=== PATIENT | male | born 1945 | race Caucasian/White ===

== ENCOUNTER 2016-06-23 10:18 | Day surgery (SDC) | payer OTHER ==
[2016-06-06 11:19] VITALS: BMI 33.0
--- NOTE | 2016-06-06 11:43 | PAT Medication Instructions ---
Service Date Jun 06, 2016. Current Home Medication List Cszrg-U-Rtkiijcxkwjqe (Beano), 1 TAB PO prn Alum & Mag Hydrox-Simethicone (Mylanta), 30 ML PO PRN UD Aspirin Enteric Coated (Ecotrin Or Generic *), 325 MG PO QAM Dutasteride (Avodart), 0.5 MG PO QAM Multivitamin (Multivitamin), 1 TAB PO QAM Nitroglycerin (Nitrostat), 0.4 MG UT PRN Pravastatin (Pravachol ), 40 MG PO QAM Ranitidine HCl (Acid Automotive Light Mechanic), 1 TAB PO BID Tamsulosin Hcl (Flomax), 0.4 MG PO BID Medication Instructions For Your Scheduled Surgery Nitroglycerin (Nitrostat), 0.4 MG UT PRN (if needed) - Hold the following medications 7 days prior to surgery per surgeon and PCP instructions: Aspirin Enteric Coated (Ecotrin Or Generic *), 325 MG PO QAM - Hold the following medications the morning of surgery: Multivitamin (Multivitamin), 1 TAB PO QAM Xxlyo-L-Fdrwkdtragmvz (Beano), 1 TAB PO prn Alum & Mag Hydrox-Simethicone (Mylanta), 30 ML PO PRN UD - Take the following medications the morning of surgery with a sip of water: Ranitidine HCl (Acid Automotive Light Mechanic), 1 TAB PO BID Tamsulosin Hcl (Flomax), 0.4 MG PO BID Pravastatin (Pravachol ), 40 MG PO QAM Dutasteride (Avodart), 0.5 MG PO QAM - Take the following medications as scheduled the night before surgery: Ranitidine HCl (Acid Automotive Light Mechanic), 1 TAB PO BID Tamsulosin Hcl (Flomax), 0.4 MG PO BID Ictjf-N-Koqvdseqpjsqr (Beano), 1 TAB PO prn Alum & Mag Hydrox-Simethicone (Mylanta), 30 ML PO PRN UD If you have any questions please call us at [phone] or [phone] ( [place]lin) or [phone]
[2016-06-06 12:10] LABS: BASO % 0.3 %; BASO ABS # 0.03 K/uL (0-0.2); COMPLETE YES; EOS % 1.6 %; HEMATOCRIT 44.1 % (42-52); IG% 0.1 %; LYMPH % 32.5 %; LYMPH ABS # 2.81 K/uL (1.2-3.4); MEAN CELL VOLUME 90.2 fL (80-100); MEAN CORPUSCULAR HEMOGLOBIN 31.1 pg (25-34); MEAN CORPUSCULAR HGB CONC 34.5 g/dl (32-36); MONO % 6.6 %; NEUT % 58.9 %; PLATELET COUNT 311 K/uL (130-400); RED BLOOD COUNT 4.89 M/uL (4.7-6.1); WHITE BLOOD COUNT 8.65 K/uL (4.8-10.8)
[2016-06-06 12:25] LABS: URINE APPEARANCE CLOUDY (CLEAR); URINE BILIRUBIN NEG (NEG); URINE COLOR YELLOW; URINE EPITHELIAL CELL AUTO 0-5 /lpf (0-5); URINE NITRITE NEG (NEG); URINE PH 6.5 (4.5-7.5); URINE SPECIFIC GRAVITY 1.005 (1.000-1.030); UROBILINOGEN NEG (NEG)
[2016-06-06 12:26] LABS: MANUAL MICROSCOPIC REQUIRED? NO; REVIEW REQ? NO
[2016-06-06 12:34] LABS: BUN/CREATININE RATIO 12.9 (10-20); CALCIUM 8.9 mg/dl (8.5-10.1); CREATININE 1.1 mg/dl (0.60-1.40)
[~2016-06-23] VITALS: Ht 165.1 cm; Wt 90.7 kg
--- NOTE | 2016-06-23 07:26 | Discharge Instructions ---
Discharge Instructions Date of Service Jun 23, 2016. Admission Reason for Admission: Retention, Benign Prostatic Hyperplasia Discharge Discharge Diagnosis / Problem: Retention and BPH s/p TURP Discharge Goals Goal(s): Improve function, Improve disease control Activity Recommendations Activity Limitations: as noted below Lifting Limitations: gradually increase as tolerated (no heavy lifting x 1 week ) Exercise/Sports Limitations: gradually increase as tolerated (after catheter removed) May Resume Sexual Activity: after follow-up appointment Shower/Bathe: tomorrow (no tub bath with catheter in place) Driving or Machine Use: no limitations (no driving on pain medication) . Instructions / Follow-Up Instructions / Follow-Up Quiros to gravity as instructed Follow-up in office as scheduled for removal of catheter and postop visit Discharge Diet Recommended Diet: Regular Diet (good fluid intake) Procedures Procedures Performed: TURP Pending Studies Studies pending at discharge: yes List of pending studies: Pathology results Medical Emergencies . Who to Call and When: Medical Emergencies: If at any time you feel your situation is an emergency, please call 911 immediately. . Non-Emergent Contact Non-Emergency issues call your: Urologist Call Non-Emergent contact if: you have a fever, temperature is above 101, your pain is not controlled, your pain is worsening, your pain is unusual for you, your pain is concerning you, you have any medication questions . . "Provider Documentation" section prepared by Da Campos. VTE Core Measure Inpt VTE Proph given/why not?: SCD's [place] Drug Monitoring Program Search Results: patient reviewed within database, no issues identified
[~2016-06-23 10:18] MED LIST: ALPHTAB4 PO; ALUM-30 PO; ASPEC325 PO; CIPROFLOXACIN / D5W 400 MG IV SCH; DUTA0.5C PO; GENTAMICIN INJ 120 MG in DEXTROSE 5% 100ML 100 ML IV SCH; LACTATED RINGER'S 1000ML 1,000 ML IV SCH; MULT-506 PO; NITR0.4S UT; PRAV20TA PO; RANI-316 PO; TAMS0.4C38 PO; VANCOMYCIN 1GM/270ML NSS IV SCH
[2016-06-23 10:46] VITALS: BP 154/83; PULSE 77; TEMP 36.5; O2SAT 98; Ht 165.1 cm; Wt 90.7 kg
--- NOTE | 2016-06-23 11:23 | History & Physical Bridge Note ---
H&P Re-Evaluation Bridge Note: I have examined the patient, reviewed the History & Physical and in the interval since the performance of the History & Physical I have noted the following changes of clinical significance: No changes noted
[2016-06-23] MEDS ORDERED: FENTANYL CITRATE INJ 50 MCG/1 ML 2 ML VIAL ONE (11:41)
[2016-06-23] MEDS ORDERED: DEXAMETHASONE SOD INJ 4 MG/ML VIAL ONE (11:41)
[2016-06-23] MEDS ORDERED: LIDOCAINE HCL 2% 2 ML VIAL (20MG/ML) ONE (11:41)
[2016-06-23] MEDS ORDERED: PROPOFOL IV EMULSION 10 MG/ML 20 ML VIAL IV ONE (11:41)
[2016-06-23] MEDS ORDERED: MIDAZOLAM HCL 1 MG/ML 2ML VIAL ONE (11:41)
[2016-06-23] MEDS ORDERED: ONDANSETRON INJ 2 MG/ML 2 ML VIAL ONE (11:41)
[2016-06-23] MEDS ORDERED: ATROPINE SULFATE 0.1 MG/ML 5ML SYR IV PRN (13:15)
[2016-06-23] MEDS ORDERED: ONDANSETRON INJ 2 MG/ML 2 ML VIAL IV PRN (13:15)
[2016-06-23] MEDS ORDERED: FENTANYL CITRATE INJ 50 MCG/1 ML 2 ML VIAL IV PRN (13:15)
[2016-06-23] MEDS ORDERED: LABETALOL HCL IV 5 MG/ML 20ML IV PRN (13:15)
[2016-06-23] MEDS ORDERED: EpHEDrine SULFATE 50MG/5ML SYR ONE (13:41)
[2016-06-23] MEDS ORDERED: BELLADONNA/OPIUM SUPP 60 MG SUPP PR ONE (13:50)
[2016-06-23] MEDS ORDERED: OXYC-57 PO (14:15)
[2016-06-23] MEDS ORDERED: PHEN-775 PO (14:15)
[2016-06-23] MEDS ORDERED: NITR1CAP16 PO (14:15)
--- NOTE | 2016-06-23 14:19 | [facility] Post Operative Brief Note ---
Immediate Operative Summary Operative Date Jun 23, 2016. Pre-Operative Diagnosis Benign prostatic hypertrophy with retention Post-Operative Diagnosis Same Procedure(s) Performed Bipolar Transuretheral Resection and Vaporization of Prostate Surgeon Dr. Stephen Campos Structural Analysis Engineer Surgeon(s) none Estimated Blood Loss 10 cc Findings Open fossa after completion Specimens A: prostate chips Drains 24 fr 10 cc H2O Anesthesia GALMA Complication(s) None Disposition Recovery Room / PACU
[2016-06-23] MEDS ORDERED: OXYCODONE/ACETAMINOPHEN 5-325 TAB PO PRN (14:30)
[2016-06-23] MEDS ORDERED: PHENAZOPYRIDINE HCL 200 MG TAB PO PRN (14:30)
--- NOTE | 2016-06-23 14:47 | OPERATIVE REPORT ---
DATE OF OPERATION: 06/23/2016 PREOPERATIVE DIAGNOSIS: Benign prostatic hypertrophy with urinary retention. POSTOPERATIVE DIAGNOSIS: Same. PROCEDURE: Transurethral resection and bipolar vaporization of the prostate gland. SURGEON: Dr. Da Campos. REAL ESTATE MANAGER: None. ANESTHESIA: General anesthesia with laryngeal mask. COMPLICATIONS: None. SPECIMENS SENT TO PATHOLOGY: Prostate chips for pathologic analysis. ESTIMATED BLOOD LOSS: 10 mL. DRAINS LEFT IN PLACE: Include a 24-Anguillan Quiros catheter with 10 mL of sterile water in the balloon. FINDINGS: Open fossa after completion of resection with excellent hemostasis. BRIEF HISTORY: Mr. Bose is a 70-year-old male who I have seen as an outpatient for history of difficulties with voiding and urinary retention. He has been on maximum medical therapy and a CIC protocol. He has also been treated preoperatively with nitrofurantoin for a positive urine culture was noted. Please see H\T\P for further details. After discussion of risks and benefits, he has decided upon TURP to manage his disease. Office cystoscopy demonstrated a short obstructive prostate gland with intravesical median lobe. SCDs used for DVT prophylaxis. The patient was covered intravenously with antibiotics for his positive culture. DESCRIPTION OF PROCEDURE: The patient was properly identified and brought to the operative suite after identification of appropriate consent on the chart, general anesthesia with laryngeal mask was initiated. The patient was prepped and draped in standard fashion for this procedure. heel pricker-out procedure was followed, a 24-Anguillan bipolar resectoscope was advanced into the bladder under direct visualization using a visual obturator. The median lobe and left greater than right lateral lobe hypertrophy was appreciated as consistent with the patient's preoperative office evaluation. Prostate was noted to be relatively short. Bladder was surveyed and no intravesical masses, papillary lesions or calculi were appreciated. No abnormal mucosal changes. Ureteral orifices were noted to be well removed from the bladder neck. Grade 1-2 trabeculation was present. Using a bipolar loop, prostate was circumferentially resected including shaving the median lobe until flushed with the trigone and resection of the lateral lobes. Atypical sparing was undertaken and care was taken to avoid any resection or fulguration beyond the level of the verumontanum. Prostate chips were irrigated free of the bladder and sent for pathologic analysis. Bladder was rechecked and no evidence of any residual tissue was appreciated. Bipolar button was placed and residual tissue was vaporized until the prostatic fossa was noted to be well unobstructed. Relaxing incisions at the 5 and 7 o'clock position were made to avoid future bladder neck contractures. Any bleeding vessels were fulgurated and excellent hemostasis was appreciated with no flow of irrigant. After this was complete, bladder was partially distended and resectoscope was removed, 24-Anguillan Quiros catheter was placed with return of clear irrigant and 10 mL of sterile water in the balloon. This was irrigated with isovolumic return. Belladonna and opium suppository was provided for additional postoperative analgesia. Anesthesia was reversed and the patient was transferred to recovery room in stable condition. FOLLOWUP CARE: The patient will be discharged home with a Quiros catheter in place. Postoperative appointment is confirmed. Prescription for nitrofurantoin to extend the patient's postoperative course; Percocet and Pyridium are also provided. The patient is instructed to contact our service should he note any fevers, chills, nausea, vomiting or other significant difficulties in the postoperative period. I attest to the content of the Intraoperative Record and any orders documented therein. Any exceptio ns are noted below.
--- NOTE | 2016-06-23 14:52 | Anesthesiology Progress Note ---
Anesthesia Post Op Note Date & Time Jun 23, 2016 at 14:52 Vital Signs Pain Intensity: 0 Vital Signs Past 12 Hours Date Time Temp Pulse Resp B/P Pulse Ox O2 Delivery O2 Flow Rate FiO2 06/23/16 14:45 80 14 124/85 94 Room Air 06/23/16 14:35 80 15 125/76 99 Mask 10 06/23/16 14:25 69 18 122/78 99 Mask 10 06/23/16 14:15 36.4 86 16 128/75 97 Mask 10 06/23/16 10:46 36.5 77 16 154/83 98 Room Air Notes Mental Status: alert / awake / arousable, participated in evaluation Pt Amnestic to Procedure: Yes Nausea / Vomiting: adequately controlled Pain: adequately controlled Airway Patency, RR, SpO2: stable & adequate BP & HR: stable & adequate Hydration State: stable & adequate Anesthetic Complications: no major complications apparent
[2016-06-23 15:00] VITALS: BP 173/78; PULSE 83; TEMP 36.6; O2SAT 96
[2016-06-23 15:30] VITALS: BP 137/70; PULSE 72; O2SAT 94
[2016-06-23 16:00] VITALS: BP 133/75; PULSE 79; TEMP 36.5; O2SAT 96
== END 2016-06-23 16:40 | disposition home or self-care (01) ==
LOC: C.ACU 10:18
PROVIDERS: ATTEND Urology
DX: N40.1 Benign prostatic hyperplasia with lower urinary tract symptoms (principal); R33.8 Other retention of urine; N13.8 Other obstructive and reflux uropathy; R35.0 Frequency of micturition; I25.10 Atherosclerotic heart disease of native coronary artery without angina pectoris; K21.9 Gastro-esophageal reflux disease without esophagitis; I25.2 Old myocardial infarction; E78.00 Pure hypercholesterolemia, unspecified; Z87.891 Personal history of nicotine dependence

== ENCOUNTER → 2016-07-05 | Outpatient (CLI) | payer OTHER ==
[~2016-07-05] MED LIST changes: -CIPROFLOXACIN / D5W 400 MG IV SCH; -GENTAMICIN INJ 120 MG in DEXTROSE 5% 100ML 100 ML IV SCH; -LACTATED RINGER'S 1000ML 1,000 ML IV SCH; +OXYC-57 PO; -VANCOMYCIN 1GM/270ML NSS IV SCH
[2016-07-05 13:48] LABS: ESTIMATED AVERAGE GLUCOSE 126 mg/dl; HA1C FLAG Normal (Normal)
[2016-07-05 13:50] LABS: BLOOD UREA NITROGEN 16 mg/dl (7-18); BUN/CREATININE RATIO 14.6 (10-20); CALCIUM 9.1 mg/dl (8.5-10.1); CARBON DIOXIDE 26 mmol/L (21-32); CHLORIDE 105 mmol/L (98-107); CHOLESTEROL 170 mg/dl (0-200); GLUCOSE 93 mg/dl (70-99); POTASSIUM 4.4 mmol/L (3.5-5.1); SODIUM 137 mmol/L (136-145)
[2016-07-05 13:55] LABS: CHOLESTEROL/HDL RATIO 3.8; HDL CHOLESTEROL 45 mg/dl; TRIGLYCERIDES 99 mg/dl (0-150); VERY LOW DENSITY LIPOPROT CALC 20 mg/dl
== END | disposition home or self-care (01) ==
LOC: C.LABSPEC 12:40
PROVIDERS: ATTEND Internal Medicine
DX: Z00.00 Encounter for general adult medical examination without abnormal findings (principal); R73.9 Hyperglycemia, unspecified; E78.5 Hyperlipidemia, unspecified

== ENCOUNTER → 2016-07-12 | Outpatient (CLI) | payer OTHER | END | disposition home or self-care (01) | LOC: C.LABSPEC 17:20 | PROVIDERS: ATTEND Urology | DX: N40.1 Benign prostatic hyperplasia with lower urinary tract symptoms (principal); R35.0 Frequency of micturition; N13.30 Unspecified hydronephrosis; R33.9 Retention of urine, unspecified; N39.0 Urinary tract infection, site not specified ==

== ENCOUNTER → 2016-09-27 | Outpatient (CLI) | payer OTHER ==
[2016-09-27 14:04] LABS: BLOOD UREA NITROGEN 13 mg/dl (7-18); BUN/CREATININE RATIO 12.7 (10-20)
[2016-09-27 14:09] LABS: PROSTATE SPECIFIC ANTIGEN 0.311 ng/ml (0.000-4.000)
== END | disposition home or self-care (01) ==
LOC: C.LABSPEC 12:19
PROVIDERS: ATTEND Urology
DX: N40.2 Nodular prostate without lower urinary tract symptoms (principal); N40.1 Benign prostatic hyperplasia with lower urinary tract symptoms; R35.0 Frequency of micturition; N39.43 Post-void dribbling; R33.9 Retention of urine, unspecified; N13.30 Unspecified hydronephrosis; N39.0 Urinary tract infection, site not specified

== ENCOUNTER → 2017-01-10 | Outpatient (CLI) | payer OTHER ==
[~2017-01-10] MED LIST changes: -OXYC-57 PO
[2017-01-10 12:54] LABS: BLOOD UREA NITROGEN 18 mg/dl (7-18); BUN/CREATININE RATIO 17.8 (10-20); CALCIUM 8.9 mg/dl (8.5-10.1); CARBON DIOXIDE 24 mmol/L (21-32); CHLORIDE 110 mmol/L (98-107); CHOLESTEROL 146 mg/dl (0-200); GLUCOSE 94 mg/dl (70-99); POTASSIUM 4.4 mmol/L (3.5-5.1); SODIUM 140 mmol/L (136-145); TRIGLYCERIDES 83 mg/dl (0-150); VERY LOW DENSITY LIPOPROT CALC 17 mg/dl
[2017-01-10 12:59] LABS: CHOLESTEROL/HDL RATIO 3.2; HDL CHOLESTEROL 45 mg/dl; PROSTATE SPECIFIC ANTIGEN 0.331 ng/ml (0.000-4.000)
== END | disposition home or self-care (01) ==
LOC: C.LABSPEC 11:58
PROVIDERS: ATTEND Internal Medicine
DX: I25.10 Atherosclerotic heart disease of native coronary artery without angina pectoris (principal); E78.5 Hyperlipidemia, unspecified; R30.0 Dysuria

== ENCOUNTER → 2017-07-11 | Outpatient (CLI) | payer OTHER ==
[2017-07-11 14:43] LABS: BLOOD UREA NITROGEN 23 mg/dl (7-18); CALCIUM 8.7 mg/dl (8.5-10.1); CARBON DIOXIDE 23 mmol/L (21-32); CHOLESTEROL 156 mg/dl (0-200); CREATININE 1.04 mg/dl (0.60-1.40); GLUCOSE 87 mg/dl (70-99); POTASSIUM 4.3 mmol/L (3.5-5.1); SODIUM 136 mmol/L (136-145)
[2017-07-11 14:48] LABS: LDL CHOLESTEROL (DIRECT) 92 mg/dl
== END | disposition home or self-care (01) ==
LOC: C.LABSPEC 12:36
PROVIDERS: ATTEND Internal Medicine
DX: Z00.00 Encounter for general adult medical examination without abnormal findings (principal); E11.9 Type 2 diabetes mellitus without complications; E78.5 Hyperlipidemia, unspecified

== ENCOUNTER 2020-02-13 05:00 | Inpatient (IN) ==
--- NOTE | 2020-02-04 09:31 | XRay Report ---
XR chest 2V PA/lateral HISTORY: 74 years-old Male OCCLUSION STENOSIS OF LEFT CAROTID ARTERY COMPARISON: Chest radiographs 07/08/2015 TECHNIQUE: PA and lateral views of the chest FINDINGS: Cardiomediastinal and hilar silhouettes are within normal limits. No pneumothorax, pleural effusion, airspace consolidation or overt pulmonary edema. Degenerative changes of the shoulders and spine. Bon es of the chest appear grossly intact. IMPRESSION: No acute process. ACT 112: Negative or not required by law. The above report was generated using voice recognition software. It may contain grammatical, syntax o r spelling errors. Electronically signed by: Tal Orozco M.D. 02/04/2020 9:30 AM
--- NOTE | 2020-02-10 08:44 | Anesthesiology Consultation ---
Date of Service February 10, 2020 Assessment & Plan (1) Encounter for pre-operative examination: - Per assessment on 01/28: Travel screen negative. No known COVID-19 positive contacts or current COVID-19 related symptoms. Preop COVID test 02/06 was negat lilian. - PCP office visit: 01/24/20: Reviewed carotid artery imaging- referred to surgery for surgical intervention. Hx CAD (inferior wall SC 1989 s/p PTCA of the CX artery). S/P unremarkable stress test in 2016- "his activity is not limited. He is very active." Chart Review Chart Review: Acceptable Risk for Surgery and Patient NOT seen in Pre Admission Testing History Surgery Operation Date: 02/13/20 07:00 Proposed Procedures p Left Carotid Endarterectomy with Bovine Patch Angioplasty - Jewel Clarke MD Height/Weight Height: 5 ft 5 in Weight: 86.183 kg Allergies Allergy/AdvReac Type Severity Reaction Status Date / Time No Known Allergies Allergy Unknown Verified 01/29/20 13:51 Medications Home Medications Medication Instructions Recorded Confirmed Last Taken smmjt-w-jtkpbipnuvroy 150 unit 150 unit PO BID PRN 01/27/20 01/29/20 Unknown tablet aspirin 325 mg tablet,delayed 325 mg PO QAM 01/27/20 01/29/20 Unknown release dutasteride 0.5 mg capsule 0.5 mg PO QAM 01/27/20 01/29/20 Unknown lisinopril 20 mg tablet 20 mg PO QAM 01/27/20 01/29/20 Unknown nitroglycerin 0.4 mg sublingual 0.4 mg SUBLINGUAL Q5M PRN 01/27/20 01/29/20 Unknown tablet omeprazole magnesium 20 mg 20 mg PO QAM 01/27/20 01/29/20 Unknown capsule,delayed release pravastatin 20 mg tablet 20 mg PO QAM 01/27/20 01/29/20 Unknown Past Medical History Medical History (Updated 02/10/20 @ 08:41 by Bess Cleveland) BPH (benign prostatic hyperplasia) CAD (coronary artery disease) inferior wall SC 1989 s/p PTCA of the CX artery Carotid stenosis, left Diverticulitis GERD (gastroesophageal reflux disease) Hyperlipidemia Hypertension Myocardial Infarction 1989 Paresthesia of left arm and leg Past Family History Family History Father Cancer Past Surgical History Surgical History (Updated 02/10/20 @ 08:41 by Bess Cleveland) History of colonoscopy History of cystoscopy History of tooth extraction Hx of angioplasty 1989- no stents Social History Smoking Status: Former smoker Do You Dip or Chew Tobacco: No Smoking End Date: 1989 Hx Alcohol Use: No Hx Substance Use: No substance use type: does not use Testing Laboratory Results 02/07/20 WBC 8.35 H/H 15.5/47.0 PLATELETS 317 SODIUM 140 POTASSIUM 4.3 CHLORIDE 108 CO2 26 BUN 14 CREATININE 1.10 GLUCOSE 134 01/07/20 HGBA1C 5.9% Electrocardiogram Date: 12/24/19 SR at 60bpm. "Normal tracing." Chest X-Ray Date: 02/04/20 FINDINGS: Cardiomediastinal and hilar silhouettes are within normal limits. No pneumothorax, pleural effusion, airspace consolidation or overt pulmonary edema. Degenerative changes of the shoulders and spine. Bones of the chest appear grossly intact. IMPRESSION: No acute process. Stress Test Date: 07/08/15 Type: exercise Normal stress echo at 7.4 METS. 88% MPHR. No induced chest pain. No EKG changes. EF 60%. No significant valvular disease. Other Testing Carotid doppler 01/23/20: Severe/critical stenosis of greater than 90% within the proximal left internal carotid artery due to the severe atherosclerotic plaque. This could also represent a focal dissection. Follow-up neck CTA recommended for further evaluation. No significant stenosis within the right carotid arteries.
[2020-02-13] MEDS ORDERED: LR 15ML/HR IV SCH (06:00)
--- NOTE | 2020-02-13 06:18 | History & Physical Bridge Note ---
Date of Service February 13, 2020 History & Physical Bridge Note I have examined the patient, reviewed the History & Physical and in the interval since the performance of the History & Physical I have noted the following changes of clinical significance: no changes noted pt marked all question answered at bedside
[2020-02-13] MEDS ORDERED: ONDANSETRON INJ 2 MG/ML 2 ML VIAL IV PRN ×2 (06:36→10:47)
[2020-02-13] MEDS ORDERED: ATROPINE SULFATE 0.1 MG/ML 10ML SYR IV PRN (06:36)
[2020-02-13] MEDS ORDERED: ePHEDrine sulfate 50 MG/ML AMP IV PRN (06:36)
[2020-02-13] MEDS ORDERED: MIDAZOLAM HCL 1 MG/ML 2ML VIAL ONE (06:38)
[2020-02-13] MEDS ORDERED: LIDOCAINE HCL 2% 2 ML VIAL/AMP(20MG/ML) INFIL ONE (06:38)
[2020-02-13] MEDS ORDERED: ONDANSETRON INJ 2 MG/ML 2 ML VIAL ONE (06:38)
[2020-02-13] MEDS ORDERED: PROPOFOL IV EMULSION 10 MG/ML 20 ML VIAL IV ONE ×2 (06:38→07:31)
[2020-02-13] MEDS ORDERED: BACITRACIN INJ 50,000 UNIT VIAL ONE (06:38)
[2020-02-13] MEDS ORDERED: LIDOCAINE/EPINEPHRINE 1% 20 ML VIAL ONE (06:38)
[2020-02-13] MEDS ORDERED: ROCURONIUM BROMIDE 10 MG/ML 5 ML VIAL IV ONE (06:38)
[2020-02-13] MEDS ORDERED: HEPARIN (PORCINE) 1000 UNIT/ML 10 ML (CATH LAB USE ONLY) ONE (06:38)
[2020-02-13] MEDS ORDERED: DEXAMETHASONE SOD INJ 4 MG/ML VIAL ONE (06:38)
[2020-02-13] MEDS ORDERED: fentaNYL citrate 100 MCG/2 ML VIAL ONE (06:39)
[2020-02-13] MEDS ORDERED: PHENYLEPHRINE HCL 10 MG/ML VIAL ONE (07:26)
[2020-02-13] MEDS ORDERED: ePHEDrine sulfate 50 MG/ML SYR ONE (07:27)
[2020-02-13] MEDS ORDERED: HEPARIN SOD (PORCINE) 1000 UNIT/ML 10 ML VIAL ONE (07:27)
[2020-02-13] MEDS ORDERED: ceFAZolin 2000MG 2,000 MG/15 ML SYR IV ONE (07:48)
[2020-02-13] MEDS ORDERED: PROTAMINE SULFATE 10 MG/ML 5 ML VIAL ONE (08:45)
[2020-02-13] MEDS ORDERED: GLYCOPYRROLATE 0.2 MG/ML VIAL ONE (08:49)
[2020-02-13] MEDS ORDERED: NEOSTIGMINE METHYLSULFATE 5 MG/5 ML SYR ONE (08:49)
[2020-02-13] MEDS ORDERED: SURGICEL ABSORB HEMOSTAT 2IN X 14IN TOP ONE (08:52)
[2020-02-13] MEDS ORDERED: METOPROLOL TARTRATE 1 MG/ML VIAL IV ONE (08:59)
--- NOTE | 2020-02-13 09:01 | Post Operative Brief Note ---
[facility] Immediate Post Op with CF Date of Surgery February 13, 2020 Pre & Post Diagnosis Operation Date: 02/13/20 07:00 Pre-Op Diagnosis: Left Carotid Stenosis Post-Op Diagnosis: Left Carotid Stenosis I identified the patient and participated in the time-out.: Yes Procedure Operation Date: 02/13/20 07:00 Actual Procedures p Left Carotid Endarterectomy with Bovine Patch Angioplasty(Left) - Jewel Clarke MD Surgeon Jewel Clarke MD Computer Numeric Control Setter B NISHI BRADLEY Estimated Blood Loss 50 Findings Consistent with Post-Op Diagnosis Specimens Specimen Description: A.) left jugular node, left carotid plaque Drains Tal Drain
[2020-02-13] MEDS ORDERED: LABETALOL HCL IV 5 MG/ML 20ML IV ONE (09:10)
[2020-02-13] MEDS: fentaNYL citrate 100 MCG/2 ML VIAL IV PRN ×3 (09:34→09:44)
--- NOTE | 2020-02-13 09:49 | Operative Report ---
[facility] Post Operative Report Pre & Post Diagnosis Operation Date: 02/13/20 07:00 Pre-Op Diagnosis: Left Carotid Stenosis Post-Op Diagnosis: Left Carotid Stenosis I identified the patient and participated in the time-out.: Yes Procedure Operation Date: 02/13/20 07:00 Actual Procedures p Left Carotid Endarterectomy with Bovine Patch Angioplasty(Left) - Jewel Clarke MD The patient was brought into the operating room theater supine position general endotracheal anesthesia timeout was had for Covid protocol roll placed underneath this shoulders the left neck and shoulder was prepped with Betadine scrub a solution properly draped systemic antibiotics given timeout was had patient was identified we had head slightly turned to the right and anterior to sternocleido muscle we used 1% Xylocaine with epi to infiltrate an area approximately 10 cm an incision was made down through the subcutaneous tissue onto the sternocleido which was retracted laterally and we went onto the neurovascular bundle the facial vein was identified and mobilized doubly ligated and divided we then took our dissection down to the carotid common carotid was identified encircled with a vessel loop we then our dissection was carried most cephalad the superior thyroid with actually, more anterior and we were able to get around away with a Roberto tie. We then took her dissection was more cephalad identify the internal carotid which were able to encircled with a vessel loop we ligated some venous structures on both to dissect out this area all the way up to the hypoglossal nerve that we identified encircled with Vesseloops to get it out of the way there also was a internal jugular nodes that we removed because it was in the way then we got into the common carotid internal carotid area where significant plaque was appreciated going up to the internal carotid we were able then to slide suspensory ligament ligated with 2-0 silk no problem with the carotid body as far as any bradycardia we then took our dissection quite high to very find an area which was probably 3 cm from the takeoff of the internal carotid which was free of any disease and is clinically the vagus nerve was way posterior is that we able to look at it and avoided we placed a vessel loop around the the internal carotid systemic heparinization was given with 10,000 units waiting approximately 5 minutes we then clamped the internal carotid first with a bulldog clamp and external then the common we started a plane of dissection by making an incision in the common carotid linearly using Thompson scissors we were able to enter the vessel extended up to the internal carotid area where it was quite hard to get through the area then we were able to go beyond the plaque formation and we started toward the endarterectomy at the circular fibers of the common carotid using 5-0 silk sutures to stay sutures open the artery and then the RN endarterectomy started as stated in his circular fibers taken out into the external carotid first we did an inversion endarterectomy then continued to the internal carotid 3 were able to free up this plaque that was appeared to be hemorrhagic and did not see a true dissection and we took him to a place where it tapered off nicely and the intima was adherent we took the bulldog clamp off the internal carotid and it was actually pulsatile backbleeding. The bovine patch that we had placed and prepped while we waited for heparinization was brought onto the field and alternated with 6-0 Prolene suture using a parachute type technique prior to c ompleting the plaque we were able then to able to place a 4 bakes dilator into the internal carotid area backbleeding was appreciated controlled with DeBakey forcep then we flush the external and common carotid suctioned out the endarterectomy site and tied down the knots for the patch. We opened the external carotids this time there was some scabbed areas we expected within a few minor bleeders along the lateral surface of the patch that we controlled with interrupted 6-0 Prolene suture when this appeared to be satisfactory we opened up the common carotid and the last took of the internal carotid clamp we were able to feel no thrill beyond the patch some oozing was appreciated we gave 50 mg of protamine initially waited while and it seemed appear to be satisfactory we then gave another 25 by the time we were finished hemostasis was satisfactory although there is a little oozing here and there there was some oozing right at proximal ulna, carotids in the proximal to the patch probably some adventitial and I placed a piece of Surgicel in that area. I elected to drain this with 1/4 inch [place] Lynne came between to answer sternocleido place along the incision and sutured in place with 2-0 silk suture the incision was then closed multiple layers 2-0 Vicryl interrupted sutures then alyson for skin edges dressing was applied procedure was tolerated well by the patient estimated blood loss approximately 50 cc patient was taken in recovery room in good condition moving all extremities and neurologically intact addendumB Crystal bradley was present throughout the procedure and helped with exposure tension on the suture during the procedure and wound closure Surgeon Jewel Clarke MD Technical Document Writer Lara BRADLEY Estimated Blood Loss 50 Findings Consistent with Post-Op Diagnosis Specimens plaque and lymph node ant jugular Description of Procedure merda I attest to the content of the Intraoperative Record and any orders documented therein. Any exceptions are noted below.
--- NOTE | 2020-02-13 10:27 | Anesthesiology Progress Note ---
Date of Service February 13, 2020 Anesthesia Post Procedure Vital Signs Vital Signs: Temp Pulse Pulse Resp BP BP BP 02/13/20 09:55 97.7 F 67 16 158/61 H 02/13/20 09:45 62 16 158/62 H 02/13/20 09:35 65 16 154/60 H 02/13/20 09:25 67 16 149/63 H 02/13/20 09:16 97.5 F L 74 16 159/60 H 02/13/20 06:24 66 20 133/83 02/13/20 05:39 97.9 F 70 18 182/80 H Pulse Ox 02/13/20 09:55 96 02/13/20 09:45 94 02/13/20 09:35 98 02/13/20 09:25 100 02/13/20 09:16 100 02/13/20 06:24 98 02/13/20 05:39 97 Transfer of Care Handoff Completed per policy Notes Mental Status: alert / awake / arousable and participated in evaluation Patient Amnestic to Procedure: Yes Nausea / Vomiting: adequately controlled Pain: adequately controlled Airway Patency, RR, SpO2: stable & adequate BP & HR: stable & adequate Hydration State: stable & adequate Anesthetic Complications: no major complications apparent and Pt Satisfied with anesthetic care
[2020-02-13] MEDS ORDERED: MoRPHine SULFATE 4 MG/ML 1 ML CARP\\VIAL IV PRN (10:47)
[2020-02-13] MEDS ORDERED: LACTATED RINGER'S 1,000 ML IV SCH (10:47)
[2020-02-13] MEDS ORDERED: HYDROCODONE/ACETAMOPHEN 5/325MG TAB PO PRN (10:47)
[2020-02-13] MEDS ORDERED: NITROGLYCERIN/D5W 100MCG/ML 250 ML IV PRN (10:47)
[2020-02-13] MEDS ORDERED: ICU PROTOCOL FOR HYPERGLYCEMIA PRN (10:56)
--- NOTE | 2020-02-13 11:07 | Critical Care Consultation ---
Date of Consultation February 13, 2020 Assessment & Plan (1) Carotid stenosis, left: Reason Critically Ill: 74 yo M PMHx significant for 20 pack years smoking history with cessation >30 years ago, HTN, hyperlipidemia, GERD, CAD s/p PTCA of the CX artery, and left ICA stenosis who is admitted to ICU for post-operative monitoring following left carotid endarterectomy with bovine patch. Neuro - - Analgesia: - Hydrocodone/acetaminophen prn moderate pain (1 tab for pain rating 3,4; 2 tabs for pain rating 5,6) - Morphine prn severe pain (1mg for pain rating of 7, 2mg for pain rating of 8, 3mg for pain rating of 9, 4mg for pain rating of 10). - Neuro checks q4h, monitor for new headache. - Expect tongue deviation to subside with recovery. Cardiac / Vascular - Left carotid stenosis: - At routine PCP visit this year noted to have carotid bruit on exam. - Bilateral carotid Doppler showed critical stenosis of left ICA (>90%). - s/p left carotid endarterectomy with bovine patch angioplasty today by Dr. Clarke. - Patient endorses family history of carotid stenosis in sister with carotid endarterectomy, and shortly thereafter from massive CVA in 2010. - BP goals <160/100 to decrease risk of cerebral hyperperfusion. - Nitroglycerin/D5W gtt with protocol prn HTN. - q4h Neuro checks and monitor for hypotension to decrease CVA risk. CAD s/p angioplasty: - inferior wall [place] 1989 s/p PTCA of the CX artery. - Stress test 2015 normal, active patient. - Pre-operative EKG NSR. - Continue aspirin, Lisinopril. Transition to high intensity statin. - Defer beta shanelle at this time given tight BP control, will reassess in AM. - No exertional symptoms. HLD: - Lipid panel 12/2019 as follows: TG 96 Total Cholesterol 156 HDL 50 LDL 94. - d/c pravastatin, start high dose statin given CAD (atorvastatin 40mg daily). Respiratory - - Former smoker, quit 30+ years ago. - No baseline oxygen requirement at home, no known pulmonary disease. - Currently on 4L nasal cannula saturating well, continue to decrease until off of oxygen. Likely increased demand post-op due to sedation and procedure. - Airway patent; no difficulty swallowing, neck swelling, hoarse voice, stridor. GI - GERD: - Heart Healthy diet. Full liquid for now and advance as tolerated. - Pantoprazole 40mg daily. RENAL/LYTES - - Replace lytes as needed. - BPH: - History of transurethral resection and bipolar vaporization of prostate in 2017. - Continue Avodart daily. - No urinary complaints this admission. ENDO - - ICU hyperglycemia protocol. HEME - - Stable H&H. - Will monitor CBC tomorrow AM given post-procedure. ID - - No concerns for infection at this point. - Monitor fever curve. INTEGUMENTARY - - Left neck dressing care per General Surgery. - Dressing currently clean and dry. LINES/IV ACCESS - - PIVs intact. DVT PROPHYLAXIS - - SCD thigh. CODE STATUS - - Full code. Thank you for allowing us to be part of this patient's care. Please refer to Dr Nahum Noe's documentation for any further recommendations. (2) Hypercholesteremia: (3) GERD (gastroesophageal reflux disease): (4) History of coronary artery disease: Supervising Physician Co-Signing Physician Notes Dr. Rubalcava was resident physician during care of patient. I separately evaluated patient for cook portions of the history and the exam. I was present during the critical portion of medical decision making, and I discussed the case with the resident. I generally agree with the findings and plan. Anticipate routine postop care. No headache no visual disturbance. History of Present Illness Reason for Consultation: post-CEA observation Requesting Physician: Valentino Singh PA-C Attending Physician: Jewel Clarke MD History of Present Illness 74 yo M PMHx significant for 20 pack years smoking history with cessation >30 years ago, HTN, hyperlipidemia, GERD, CAD s/p PTCA of the CX artery, and left ICA stenosis who is admitted to ICU for post-operative monitoring following left carotid endarterectomy with bovine patch. On carotid Doppler outpatient following physical exam finding of carotid bruit, patient was found to have greater than 90% stenosis of left ICA. Patient had preoperative evaluation by PCP Dr. Herrera. Had Stress testing in 2016 which was normal, and patient is very active without exertional angina or rest angina symptoms. Carotid endarterectomy with bovine patch performed this morning with good success, no immediate complications. Patient was transferred to ICU for postop monitoring of blood pressure and frequent neuro checks. On my interview patient is endorsing mild left neck pain. Denies chest pain, shortness of breath, nausea or vomiting, abdominal pain, dizziness, headache. No trouble swallowing, no hoarseness of voice. No alteration in mental status post procedure. Allergies Allergy/AdvReac Type Severity Reaction Status Date / Time No Known Allergies Allergy Unknown Verified 02/13/20 05:30 Home Medications Home Medications Medication Instructions Recorded Confirmed Type [id number]-[id number] 150 unit 150 unit PO BID PRN 01/27/20 02/13/20 History tablet aspirin 325 mg tablet,delayed 325 mg PO QAM 01/27/20 02/13/20 History release dutasteride 0.5 mg capsule 0.5 mg PO QAM 01/27/20 02/13/20 History lisinopril 20 mg tablet 20 mg PO QAM 01/27/20 02/13/20 History nitroglycerin 0.4 mg sublingual 0.4 mg SUBLINGUAL Q5M PRN 01/27/20 02/13/20 History tablet omeprazole magnesium 20 mg 20 mg PO QAM 01/27/20 02/13/20 History capsule,delayed release pravastatin 20 mg tablet 20 mg PO QAM 01/27/20 02/13/20 History Patient History Medical History (Updated 02/13/20 @ 13:25 by Lyssa Morales DO) BPH (benign prostatic hyperplasia) CAD (coronary artery disease) inferior wall [place] 1989 s/p PTCA of the CX artery Carotid stenosis, left Diverticulitis GERD (gastroesophageal reflux disease) History of coronary artery disease Hyperlipidemia Hypertension Myocardial Infarction 1989 Paresthesia of left arm and leg Surgical History (Updated 02/13/20 @ 11:05 by Lyssa Morales DO) History of colonoscopy History of cystoscopy History of tooth extraction Hx of angioplasty 1989- no stents S/P carotid endarterectomy (02/13/20) Left Carotid Endarterectomy with Bovine Patch Angioplasty Dr. Clarke 02/13/2020 Family History Father Cancer Social History (Updated 01/27/20 @ 11:55 by Maria Guadalupe Chu RN) Smoking Status: Former smoker Smoking End Date: 1989; Second Hand Exposure: Yes; Do You Dip or Chew Tobacco: No; Tobacco Cessation Education Requested by Patient: No Hx Alcohol Use: No Hx Substance Use: No Preferred Language: [place] Communication Ability: Effective Law Reporter Required: No Beliefs That Will Affect Care: None marital status: marital status details: Amrita Current Living Situation: Spouse current occupational status: retired How many Children do You have: 0 Other Information That Helps Us Care for You: No Feels Safe at Home: Yes Safety Concerns: Feels Safe At This Time Assistive Devices: Denture - Upper, Denture - Lower, Glasses and Hearing Aid - Left Review of Systems Review of Systems: Constitutional: no fever, no chills and no malaise Ear, Nose, Mouth, Throat: endorses mild left sided neck pain Respiratory: no cough and no dyspnea Cardiovascular: no chest pain, no palpitations and no edema Gastrointestinal: no abdominal pain, no constipation and no diarrhea/loose stools Neuro: denies headache or dizziness Physical Exam Physical Exam: VITAL SIGNS - Vital signs and nursing notes were reviewed. GENERAL - 74 yo M, well developed, well nourished, in no acute distress SKIN - Without rashes. HEAD - NC/AT. EYES - PERRL. Sclera anicteric. Palpebral conjunctiva pink and moist with no injection noted. EARS - No deformities of external structures noted on gross examination bilaterally. NOSE - Midline and without cyanosis. No epistaxis or purulent drainage noted. MOUTH/OROPHARYNX - No perioral cyanosis. Edentulous. No airway obstruction. NECK - Left neck with bandage in place, dressing clean, dry, intact. No carotid bruits bilaterally. LUNGS - Clear to auscultation bilaterally. CARDIAC - Regular rate and rhythm. No murmurs. ABDOMEN - soft, nontender, nondistended, normal bowel sounds. EXTREMITIES - No clubbing or peripheral cyanosis. No peripheral edema present. Radial and dorsalis pedis pulses palpated bilaterally. NEUROLOGIC - Moves all extremities equally. Left tongue deviation present. PSYCH - Alert and oriented x3, euthymic affect. Results & Data Results & Data ([facility]) Vital Signs (Past 12 Hours) Vital Signs Temp Pulse Pulse Resp BP BP BP 02/13/20 09:55 36.5 C 67 16 158/61 H 02/13/20 09:45 62 16 158/62 H 02/13/20 09:35 65 16 154/60 H 02/13/20 09:25 67 16 149/63 H 02/13/20 09:16 36.4 C L 74 16 159/60 H 02/13/20 06:24 66 20 133/83 02/13/20 05:39 36.6 C 70 18 182/80 H Pulse Ox 02/13/20 09:55 96 02/13/20 09:45 94 02/13/20 09:35 98 02/13/20 09:25 100 02/13/20 09:16 100 02/13/20 06:24 98 02/13/20 05:39 97 Resident Activity Tracking Resident Involvement: Resident Care Provided Care Provided: Adult Hospital Medicine (1) GERD (gastroesophageal reflux disease) Esophagitis presence: without esophagitis Qualified Code(s): K21.9 - Gastro- esophageal reflux disease without esophagitis
--- NOTE | 2020-02-13 15:51 | Billing Data ---
Date of Service February 13, 2020 Coding Level of Care Code 02932 Inpt Consult Level 5
[2020-02-13] MEDS ORDERED: ATORVASTATIN 40 MG TAB PO SCH (21:00)
[2020-02-14 05:12] LABS: Basophils # (auto) 0.01 K/uL (0-0.2); Basophils % (auto) 0.1 %; Hematocrit (blood only) 42.5 % (42-52); Immature Granulocytes # (auto) 0.05 K/uL (0.00-0.02); Immature Granulocytes % (auto) 0.3 %; Lymphocytes # (auto) 1.81 K/uL (1.2-3.4); Lymphocytes % (auto) 10.3 %; Mean Corpuscular Hemoglobin 31.6 pg (25-34); Mean Corpuscular Hgb Conc 32.9 g/dL (32-36); Mean Corpuscular Volume 95.9 fL (80-100); Mean Platelet Volume 11.2 fL (7.4-10.4); Monocytes # (auto) 1.45 K/uL (0.11-0.59); Monocytes % (auto) 8.3 %; Neutrophils # (auto) 14.24 K/uL (1.4-6.5); Platelet Count 297 K/uL (130-400); RDW Standard Deviation 45.5 fL (36.4-46.3); Red Blood Count 4.43 M/uL (4.7-6.1); White Blood Count 17.56 K/uL (4.8-10.8)
[2020-02-14 05:40] LABS: BUN Creatinine Ratio 16.7 (10-20); Calcium 8.6 mg/dl (8.5-10.1); Creatinine Clr Calc Pharmacy 70.6 ml/min; Est GFR (Non-African American) 81.1; Magnesium 2.2 mg/dl (1.8-2.4); Phosphorus 3.4 mg/dl (2.5-4.9); Potassium 4.1 mmol/L (3.5-5.1)
--- NOTE | 2020-02-14 06:29 | Critical Care Progress Note ---
Date of Service February 14, 2020 Assessment & Plan (1) Carotid stenosis, left: Reason Critically Ill: 74 yo M PMHx significant for 20 pack years smoking history with cessation >30 years ago, HTN, hyperlipidemia, GERD, CAD s/p PTCA of the CX artery, and left ICA stenosis who is admitted to ICU for post-operative monitoring following left carotid endarterectomy with bovine patch. Neuro - - Analgesia: - Hydrocodone/acetaminophen prn moderate pain (1 tab for pain rating 3,4; 2 tabs for pain rating 5,6). - Morphine prn severe pain (1mg for pain rating of 7, 2mg for pain rating of 8, 3mg for pain rating of 9, 4mg for pain rating of 10). - Neuro checks q4h while admitted, monitor for new headache. - Tongue deviation improving with surgery recovery. Cardiac / Vascular - Left carotid stenosis: - At routine PCP visit this year noted to have carotid bruit on exam. - Bilateral carotid Doppler showed critical stenosis of left ICA (>90%). - s/p left carotid endarterectomy with bovine patch angioplasty 02/[address] Clarke. - Patient endorses family history of carotid stenosis in sister with carotid endarterectomy, and shortly thereafter from massive CVA in 2010. - No change in mental status or neurologic exam on serial checks. CAD s/p angioplasty: - Inferior wall [place] 1989 s/p PTCA of the CX artery. - Stress test 2016 normal, and patient is very physically active without any exertional symptoms. - Pre-operative EKG NSR. - Continue aspirin, Lisinopril. Transitioned to high intensity statin this admission given history of TX and now extensive carotid plaque for plaque stabilization. - Consider addition of beta shanelle such as metoprolol succinate given history CAD. HLD: - Lipid panel 12/2019 as follows: TG 96 Total Cholesterol 156 HDL 50 LDL 94. - d/c'ed pravastatin, started high dose statin (atorvastatin 40mg daily) given CAD. Respiratory - - Former smoker, quit 30+ years ago. - No baseline oxygen requirement at home, and no history of pulmonary disease. - Airway patent; no difficulty swallowing, neck swelling, hoarse voice, stridor. GI - GERD: - Heart Healthy diet. Tolerating normal diet well. - Pantoprazole 40mg daily. RENAL/LYTES - - Replace lytes as needed. - BPH: - History of transurethral resection and bipolar vaporization of prostate in 2017. - Continue Avodart daily. - No urinary complaints this admission. ENDO - - ICU hyperglycemia protocol while admitted. HEME - - Stable H&H. ID - - Patient was afebrile this admission. - WBC 17 this AM, however no localizing infectious complaints. INTEGUMENTARY - - Tal drain removed this AM. - Dressing currently clean and dry. - Care per General Surgery in outpatient setting. LINES/IV ACCESS - - PIVs intact. DVT PROPHYLAXIS - - SCD thigh. CODE STATUS - - Full code. Thank you for allowing us to be part of this patient's care. Patient will be discharged later today by General Surgery service. Please refer to Dr. Noe's documentation for any further recommendations. Admission and Anticipated Discharge Date Admission Date: February 13, 2020 Supervising Physician Co-Signing Physician Notes Dr. Rubalcava was resident physician during care of patient. I separately evaluated patient for cook portions of the history and the exam. I was present during the critical portion of medical decision making, and I discussed the case with the resident. I generally agree with the findings and plan. Patient has remained asymptomatic and is listed for discharge per surgery service. Subjective Patient without acute events overnight. Complaints of some neck pain, and getting poor sleep last night due to frequent urination. No burning or blood with urination. No increased urinary urgency. Denies chest pain, SOB, nausea, abdominal pain, dizziness or headache. Tal drain removed this AM by General Surgery. Review of Systems Review of Systems: Constitutional: no fever, no chills and no malaise Ear, Nose, Mouth, Throat: endorses mild left sided neck pain Respiratory: no cough and no dyspnea Cardiovascular: no chest pain, no palpitations and no edema Gastrointestinal: no abdominal pain, no constipation and no diarrhea/loose stools Neuro: denies headache or dizziness Physical Exam Physical Exam: VITAL SIGNS - Vital signs and nursing notes were reviewed. GENERAL - 74 yo M, well developed, well nourished, in no acute distress. SKIN - Without rashes. HEAD - NC/AT. EYES - PERRL. Sclera anicteric. Palpebral conjunctiva pink and moist with no injection noted. EARS - No deformities of external structures noted on gross examination bilaterally. NOSE - Midline and without cyanosis. No epistaxis or purulent drainage noted. MOUTH/OROPHARYNX - No perioral cyanosis. Edentulous. No airway obstruction. NECK - Left neck with bandage in place, dressing clean, dry, intact. LUNGS - Clear to auscultation bilaterally. CARDIAC - Regular rate and rhythm. No murmurs. ABDOMEN - Soft, nontender, nondistended, normal bowel sounds. EXTREMITIES - No clubbing or peripheral cyanosis. No peripheral edema present. Radial and dorsalis pedis pulses palpated bilaterally. NEUROLOGIC - Moves all extremities equally. Left tongue deviation present but not as pronounced as compared to yesterday. PSYCH - Alert and oriented x3, euthymic affect. Results & Data Results & Data ([facility]) Vital Signs (Past 12 Hours) Vital Signs Temp Pulse Resp BP Pulse Ox 02/14/20 04:00 82 02/14/20 03:02 74 20 138/65 95 02/14/20 02:19 84 28 H 159/73 H 96 02/14/20 02:02 36.5 C 77 21 136/62 95 02/14/20 01:03 86 17 146/56 H 94 02/14/20 00:02 36.5 C 80 21 125/58 L 94 02/14/20 00:00 74 02/13/20 23:32 76 18 136/62 94 02/13/20 23:02 76 18 130/71 94 02/13/20 22:32 77 21 136/65 95 02/13/20 22:02 36.7 C 83 16 141/61 H 95 02/13/20 21:32 78 21 137/59 L 94 02/13/20 21:26 91 H 02/13/20 21:02 81 20 137/71 93 02/13/20 20:32 77 22 148/61 H 96 02/13/20 20:02 36.7 C 81 19 137/64 94 02/13/20 20:00 82 02/13/20 19:32 73 20 122/78 96 02/13/20 19:02 82 18 146/65 H 95 02/13/20 18:32 93 H 27 H 152/68 H 96 02/13/20 18:30 67 21 94 Resident Activity Tracking Resident Involvement: Resident Care Provided Care Provided: Adult [facility] Medicine
--- NOTE | 2020-02-14 07:50 | Surgery Progress Note ---
Date of Service February 14, 2020 Assessment & Plan (1) S/P carotid endarterectomy: POD 1 carotid endarterectomy seen with Dr. Clarke drain removed ok for discharge on routine meds Admission and Anticipated Discharge Date Admission Date: February 13, 2020 Subjective no complaints Physical Exam Neck: incision dry, minimal luc drainage Neurologic: PERRL, EOMI, accommodation nl, no face palsy, no dysarthria Results & Data ([facility]) Vital Signs (Past 12 Hours) Vital Signs Temp Pulse Resp BP Pulse Ox 02/14/20 06:29 72 13 166/77 H 95 02/14/20 05:29 67 16 144/62 H 96 02/14/20 04:29 78 14 152/66 H 96 02/14/20 04:00 82 02/14/20 03:02 74 20 138/65 95 02/14/20 02:19 84 28 H 159/73 H 96 02/14/20 02:02 36.5 C 77 21 136/62 95 02/14/20 01:03 86 17 146/56 H 94 02/14/20 00:02 36.5 C 80 21 125/58 L 94 02/14/20 00:00 74 02/13/20 23:32 76 18 136/62 94 02/13/20 23:02 76 18 130/71 94 02/13/20 22:32 77 21 136/65 95 02/13/20 22:02 36.7 C 83 16 141/61 H 95 02/13/20 21:32 78 21 137/59 L 94 02/13/20 21:26 91 H 02/13/20 21:02 81 20 137/71 93 02/13/20 20:32 77 22 148/61 H 96 02/13/20 20:02 36.7 C 81 19 137/64 94 02/13/20 20:00 82 PG Care Time/CCT Total # of Minutes Spent Total Time Spent with Patient: Total time spent is greater than 50% in coordination of care (as documented) at patient's floor/unit and/or counseling patient: Coding Level of Care Code None Diagnoses S/P carotid endarterectomy Z98.890
--- NOTE | 2020-02-14 08:18 | Billing Data ---
Date of Service February 14, 2020 Coding Level of Care Code 32988 Subseq Hosp Care Lvl 1
[2020-02-14] MEDS ORDERED: lisinopril 20 MG TAB PO SCH (09:00)
[2020-02-14] MEDS ORDERED: PRAVASTATIN SOD 20 MG TAB PO SCH (09:00)
[2020-02-14] MEDS ORDERED: OMEPRAZOLE MAGNESIUM 20 MG PO SCH (09:00)
[2020-02-14] MEDS ORDERED: [UNRECOGNIZED DRUG - OTHER] PO SCH (09:00)
[2020-02-14] MEDS ORDERED: ATORVASTATIN 40 MG TAB PO SCH (09:00)
[2020-02-14] MEDS ORDERED: PANTOprazole 40 MG TAB PO SCH (09:00)
[2020-02-14] MEDS ORDERED: ASPIRIN 325 MG ECTAB PO SCH (09:00)
--- NOTE | 2020-02-17 07:40 | Discharge Summary ---
Date of Service February 17, 2020 Principal Diagnosis left carotid stenosis Discharge Exam Constitutional WD/WN, vitals as above Neck incision clean, dry Neurologic PERRL, EOMI, accommodation nl, no face palsy, no dysarthria Discharge Data Allergies Allergy/AdvReac Type Severity Reaction Status Date / Time No Known Allergies Allergy Unknown Verified 02/13/20 05:30 Consultations 02/13/20 10:47 Consult College Teacher Routine Procedures Performed Operation Date: 02/13/20 07:00 Actual Procedures p Left Carotid Endarterectomy with Bovine Patch Angioplasty(Left) - Jewel Clarke MD Ordered Studies 02/13/20 06:39 US - OR guided needle placemen Stat Hospital Course (1) Carotid stenosis, left: 74 y/o male was taken to the operating room for left carotid endarterectomy. The procedure was well tolerated and he was transferred to the ICU for post-op monitoring. His BP remained stable, he was able to advance diet and had minimal pain. He was stable for discharge home the next morning. Total Time Total Time Spent Total Time Spent (In Minutes): 10 Discharge Plan Discharge Items Patient Disposition: Home - Self-Care Reason For Visit: Carotid Stenosis; OCCLUSION & STENOSIS OF LEFT Discharge Diagnosis: carotid endarterectomy Activity: As commented below Lifting: No more than 10 pounds Bathing Comment: ok to shower, remove bandage to shower, recover until drainage stops Driving/Machine Use: no driving for 1 week Non-emergency contact: Surgeon Call non-emergency contact if: you have any medication questions, your pain is not controlled, you have a fever and your temperature is above 101.5 Follow-up/Referrals: Jewel Clarke MD [Surgeon] - 02/20/20 9:00 am (In 1 week as planned) Reji Herrera MD [Primary Care Provider] - 02/19/20 9:15 am Diet: Regular Addtl Attending Provider Instructions: Addtl Datacap Developer Provider Instructions: You should stop your home pravastatin 20mg and start atorvastatin 40mg daily. This is a stronger cholesterol medication that is indicated in patients with coronary artery disease to help prevent cholesterol plaques from rupturing. This was sent to the [facility] on [facility]. You should talk to your primary care doctor about starting you on a medication called a beta shanelle (name of the medication is metoprolol). This is another medication that is indicated to help offload stress on hearts that have had heart attacks. Pending Studies at Discharge: No Stand-Alone Forms: My [facility], Smoking Cessation Medications and DC Order Prescriptions: New atorvastatin 40 mg Tablet 40 mg PO QAM Qty: 30 RF: 1 hydrocodone-acetaminophen [[place]] 5-325 mg tablet 1 tab PO Q4H PRN (Reason: pain, initial therapy, max 8 daily) Qty: 7 RF: 0 Continued lisinopril 20 mg tablet 20 mg PO QAM RF: 0 Beano 150 unit tablet 150 unit PO BID PRN (Reason: Gastric Reflux) RF: 0 aspirin [Ecotrin] 325 mg tablet,delayed release (DR/EC) 325 mg PO QAM RF: 0 dutasteride [Avodart] 0.5 mg capsule 0.5 mg PO QAM RF: 0 nitroglycerin 0.4 mg tablet, sublingual 0.4 mg sublingual Q5M PRN (Reason: Chest Pain) RF: 0 omeprazole magnesium [Acid Window Shade Installer (omeprazole)] 20 mg capsule,delayed release(DR/EC) 20 mg PO QAM RF: 0 Discontinued pravastatin 20 mg tablet 20 mg PO QAM RF: 0 Discharge Orders: Discharge Order (Routine); Ordered 02/14/20 Ordered By: Valentino Marroquin/Other Patient Handouts: Having Carotid Endarterectomy Admission Data Admit Date/Time: 02/13/20 09:31 Attending Provider: Jewel Clarke Admit Provider: Jewel Clarke Primary Care Provider: Reji Herrera Other Providers: Aaron Noe Other Interventions: Discharge Summary Assessment (RN) Last Done: 02/14/20 09:28 Coding Level of Care Code D/C Day Management <30 mins Diagnoses Carotid stenosis, left I65.22
== END 2020-02-14 10:09 | disposition home or self-care (01) | DRG 39 ==
LOC: ASU 05:00 → 1E 09:31

== ENCOUNTER 2021-12-15 13:13 | Inpatient (IN) ==
--- NOTE | 2021-12-15 15:46 | CT Scan Report ---
CT OF THE HEAD WITHOUT CONTRAST CLINICAL HISTORY: HTN, paresthesias COMPARISON STUDY: Head CT January 10, 2015. CT DOSE: 691.05 mGy.cm TECHNIQUE: Helical axial images of the head were obtained without IV contrast. Automated exposure con trol was utilized for the study. A dose lowering technique was utilized adhering to the principles o f ALARA. FINDINGS: A metallic density along the inferior aspect of the chest is unchanged. There is a 3.2 x 2. 3 cm mass-like density within the posterior right temporal lobe. There is associated vasogenic edema. There is no midline shift. There is slight compression on the atrium of the right lateral ventricle. Ventricular system is unremarkable. Basal cisterns are patent. There are no extra axial collections. There are no findings to suggest acute dural sinus thrombosis or acute territorial infarct. IMPRESSION: 3.2 x 2.3 cm mass-like density within the posterior right temporal lobe with associated vasogenic edema. 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 An MRI of the brain with and without contrast is recommended for further evaluation. ACT 112: Positive. There are findings on this exam that require communication between the performing entity and the patient following Patient Test Result Information Act ([place] Act 112) guidelines. Electronically signed by: Sami Hernandez M.D. 12/15/2021 3:44 PM
--- NOTE | 2021-12-15 15:47 | XRay Report ---
XR chest 1V portable CLINICAL HISTORY: HTN, paresthesias TECHNIQUE: Single frontal radiograph of the chest was obtained. Comparison: Comparison is made to chest radiograph 12/06/2021 FINDINGS: No lines and tubes are seen. Borderline cardiomegaly is seen. Prominence and cephalization of the vas culature is seen. No evidence of pleural effusion or pneumothorax. IMPRESSION: Borderline cardiomegaly and mild pulmonary edema. ACT 112: Negative or not required by law. Electronically signed by: Ramiro Goodman M.D. 12/15/2021 3:46 PM
[2021-12-15 15:54] LABS: Albumin Globulin Ratio 1.4 (0.9-2); Albumin Level 4.6 gm/dl (3.4-5.0); BUN Creatinine Ratio 20.9 (10-20); Calcium 9.3 mg/dl (8.5-10.1); Est GFR (African American) 96.9 ml/min; Est GFR (Non-African American) 83.6 ml/min; Globulin 3.2 gm/dl (2.5-4.0); Magnesium 1.8 mg/dl (1.7-2.4); Phosphorus 2.5 mg/dl (2.5-4.9); Potassium 4.7 mmol/L (3.5-5.1); Total Protein 7.8 gm/dl (6.0-8.3)
[2021-12-15] MEDS ORDERED: LABETALOL HCL IV 5 MG/ML 20ML IV STA ×2 (15:58→18:52)
[2021-12-15 15:59] LABS: Troponin I High Sensitivity 32.2 pg/ml (0-20)
--- NOTE | 2021-12-15 16:18 | Emergency Department Note ---
Impression & Plan Hypertensive urgency, Brain mass, Elevated troponin I level ED Provider Note Provider: Jose Albert MD DATE OF SERVICE: 12/15/2021 CHIEF COMPLAINT: Hypertension, tingling earlier, acting off HISTORY OF PRESENT ILLNESS: Patient is a 76-year-old gentleman history of CAD, GERD, diverticulitis, and hypertension presenting here today with his . Evidently been working over the past month for better blood pressure control and increased his liminal 40 mg several weeks ago. Noted his blood pressure been elevated and significantly elevated around 230 systolic by the report this morning. This morning while at home the patient was not acting right according to his . Evidently seemed to be staring off a bit and then and staring at his breakfast bagel oddly and moving it. Patient states at that time he had some paresthesias. No seizure-like activity reported. No falls reported. Patient states right now is back at baseline. states maybe his speech was a little bit off earlier but is normal now. Blood pressure again was noted to be elevated. Denies any chest pain or palpitations at any time. Does have 3 coffees every morning. No GI symptoms reported. REVIEW OF SYSTEMS: A total of 10 review of systems was obtained and negative except as stated above in the HPI. PAST MEDICAL HISTORY: As noted above MEDICATIONS: Reviewed home medications include lisinopril and full dose aspirin SOCIAL HISTORY: Very distant former smoker, lives at home with PHYSICAL EXAM: GENERAL: alert and oriented in no acute distress on stretcher Head: normocephalic and atraumatic EYES: No injection, discharge or icterus. PERRL, EOMI. NECK: Trachea midline. Supple. ENT: Mucous membranes pink and moist. LUNGS: Airway patent. No retractions. Breath sounds clear with good air entry bilaterally. HEART: Regular rate and rhythm. No chest wall tenderness ABDOMEN: Soft and non-tender, without guarding or rebound. SKIN: Acyanotic, warm, dry, without rashes EXTREMITIES: Without swelling, tenderness or deformity NEUROLOGICAL: No focal deficits. No aphasia. No facial droop or slurred speech. Normal strength and tone in the extremities. Sensation to gross touch normal. Am bulatory. EK bpm sinus rhythm with PAC. No PVC. No acute ST segment elevation with a QTC of 464. CONTINUOUS CARDIAC MONITORING: was ordered and showed a heart rate of 80s-90s bpm in normal sinus rhythm Patient's laboratory studies and imaging reviewed. Differential includes Benign positional vertigo, dehydration, hypovolemia, anemia, tumor, infection, hypoglycemia, electrolyte abnormalities, cardiac sources, intracerebral event, toxicologic, neurologic, as well as other pathologies. IMPRESSION/MEDICAL DECISION MAKING: No significant focal deficits at this point. CT of the head and basic labs obtained. EKG with some PACs but no significant arrhythmia. Not having chest pain. Significantly hypertensive. Given a small dose of labetalol here for some improvement. Not having again neurological symptoms or paresthesias at this point. CT the head completed questioning a possible right parietal finding. Patient denies any history of this or history of stroke. Given this sent for an MRI for further evaluation of this. No history of cancers reported. Blood work otherwise shows reassuring chemistries however troponin is somewhat elevated at 32 today. This is increased compared to previous. Believe likely related to his some demand from his hypertension. Given some Versed to facilitate brain MRI further evaluation which shows evidence of what appears to be likely meningioma. Discussed this report with neurosurgery at [facility] given the patient's request. Discussed with Dr. Gutierrez of neurosurgery at [facility] describing the imaging reports and the patient's history. He reported at this point he recommend ou tpatient follow-up with the patient. He can follow-up with NSGY at [facility] in the next several weeks calling # [phone] to schedule. Discussed this with the patient and his . Again the patient does have some troponin elevation today and again still with significant blood pressure elevation. Some element of hypertensive urgency/emergency. We will have the hospitalist evaluate for observation in regards to this. Did discuss with Dr. Holbrook of neurology relayed that he had no other additional recommendations to add and the patient would be stable for care here for his blood pressure and other issues and then follow-up as an outpatient with neurosurgery as they recommended. DIAGNOSIS: Hypertensive urgency, elevated troponin, brain mass DISPOSITION: Hospitalist will evaluate Patient was agreeable with this plan. Past Med/Surg History Medical History Atherosclerotic heart disease of [place] coronary artery without angina pectoris Bilateral hydronephrosis BPH (benign prostatic hyperplasia) BPH with obstruction/lower urinary tract symptoms CAD (coronary artery disease) Carotid stenosis, left Chest pain Diverticulitis GERD (gastroesophageal reflux disease) History of coronary artery disease History of COVID-19 History of UT (myocardial infarction) Hyperlipidemia Hypertension Hypertension Myocardial Infarction Post-void dribbling Prostate nodule Pure hypercholesterolemia Urinary frequency Urinary tract infection, acute Surgical History History of colonoscopy History of cystoscopy History of left-sided carotid endarterectomy History of right cataract surgery History of tooth extraction Hx of angioplasty Family History Father Lung cancer Myocardial infarction Mother Myocardial infarction Denies family history of Ovarian cancer Prostate cancer Breast cancer Colorectal cancer Social History Smoking Status: Never smoker Tobacco Type: Cigarettes packs per day: 0.5; Years Smoked: 20; Second Hand Exposure: No; Hx Alcohol Use: No (has not drank in 36 year(s)) Hx Substance Use: No Preferred Language: Nam[place] Communication Ability: Effective Visual Impairment: No Limitations Hearing Ability: Use of Hearing Aid Dealer Analyst Required: No Beliefs That Will Affect Care: None marital status: marital status details: Amrita Current Living Situation: Spouse current occupational status: retired How many Children do You have: 0 Feels Safe at Home: Yes Childhood Exposure to Second-Hand Smoke: Yes (father ) Diet Comment: tries to eat healthy caffeine: Yes (3 cups daily ) during the past year weight has: remained stable Dental Care, Regularly: Yes Physical Activity Frequency: Daily Seatbelt Use: always Sunscreen Use: No Assistive Devices: Hearing Aid - Left Allergies Allergies Allergy/AdvReac Type Severity Reaction Status Date / Time No Known Allergies Allergy Unknown Verified 12/15/21 19:57 Home Meds Home Medications Medication Instructions Recorded Confirmed [id number] 150 unit 150 unit PO BID PRN Gastric Reflux 01/27/20 12/15/21 tablet (Beano) aspirin 325 mg tablet,delayed 325 mg PO QAM 01/27/20 12/15/21 release (Ecotrin) dutasteride 0.5 mg capsule 0.5 mg PO QAM 01/27/20 12/15/21 (Avodart) nitroglycerin 0.4 mg sublingual 0.4 mg sublingual Q5M PRN Chest 01/27/20 12/15/21 tablet Pain omeprazole magnesium 20 mg 20 mg PO QAM 01/27/20 12/15/21 capsule,delayed release (Acid [employer] Practitioner (omeprazole)) lisinopril 40 mg tablet 40 mg PO QAM 12/15/21 12/15/21 Previous Rx's Medication Instructions Recorded atorvastatin 40 mg tablet 40 mg PO QAM #90 tabs 08/31/21 Results & Data (ED) Vital Signs Vital Signs - 24 hr 12/15/21 13:50 12/15/21 15:17 12/15/21 18:26 Temperature 36.6 C Temperature Source Temporal Artery Scan Pulse Rate 98 H Pulse Rate [Left] 88 Pulse Rhythm [Left] Regular Respiratory Rate 20 20 Respiratory Effort / Characteristics Non-Labored Spontaneous Non-Labored Respiratory Depth Normal Normal Respiratory Pattern Regular Blood Pressure 204/91 H Blood Pressure [Right Arm] 209/105 H 171/89 H Blood Pressure Mean 128 Blood Pressure Mean [Right Arm] 139 116 Blood Pressure Position Sitting Blood Pressure Position [Right Arm] Lying Pulse Oximetry 94 98 Oxygen Delivery Method Room Air Sepsis Recent Fever Within 48 Hours No Sepsis New/Unexplained Change in Mental Status No Sepsis Action Taken by Nursing No Action Required 12/15/21 20:00 Temperature Temperature Source Pulse Rate Pulse Rate [Left] 85 Pulse Rhythm [Left] Regular Respiratory Rate 20 Respiratory Effort / Characteristics Non-Labored Respiratory Depth Normal Respiratory Pattern Blood Pressure Blood Pressure [Right Arm] 173/77 H Blood Pressure Mean Blood Pressure Mean [Right Arm] 109 Blood Pressure Position Blood Pressure Position [Right Arm] Pulse Oximetry 95 Oxygen Delivery Method Room Air Sepsis Recent Fever Within 48 Hours Sepsis New/Unexplained Change in Mental Status Sepsis Action Taken by Nursing Laboratory Data Result diagrams: 12/15/21 16:14 12/15/21 15:16 Lab Results 12/15/21 12/15/21 12/15/21 Range/Units 15:16 15:16 16:05 WBC Cancelled RBC Cancelled Hgb Cancelled Hct Cancelled MCV Cancelled MCH Cancelled MCHC Cancelled RDW Std Deviation Cancelled RDW Coeff of Nick Cancelled Plt Count Cancelled MPV Cancelled Immature Gran % (Auto) Cancelled Neut % (Auto) Cancelled Lymph % (Auto) Cancelled [place] % (Auto) Cancelled Eos % (Auto) Cancelled Baso % (Auto) Cancelled Neut # (Auto) Cancelled Lymph # (Auto) Cancelled [place] # (Auto) Cancelled Eos # (Auto) Cancelled Baso # (Auto) Cancelled Immature Gran # (Auto) Cancelled Absolute Nucleated RBC Cancelled Nucleated RBC % (auto) Cancelled Neutrophils % (Manual) Cancelled Band Neutrophils % Cancelled Lymphocytes % (Manual) Cancelled Prolymphocyte % Cancelled Reactive Lymphs % (Man) Cancelled Monocytes % (Manual) Cancelled Eosinophils % (Manual) Cancelled Basophils % (Manual) Cancelled Metamyelocytes % (Man) Cancelled Myelocytes % (Man) Cancelled Promyelocytes % (Man) Cancelled Blast Cells % (Manual) Cancelled Plasma Cell % (Manual) Cancelled Other Cells % Cancelled Nucleated RBC % Cancelled Neutrophils # (Manual) Cancelled Band Neutrophils # Cancelled Total Absolute Neuts Cancelled Lymphocytes # (Manual) Cancelled Prolymphocyte # Cancelled Reactive Lymphs # Cancelled Total Abs Lymphocytes Cancelled Monocytes # (Manual) Cancelled Eosinophils # (Manual) Cancelled Basophils # (Manual) Cancelled Metamyelocytes # (Man) Cancelled Myelocytes # (Manual) Cancelled Promyelocytes # (Man) Cancelled Blast Cells # (Man) Cancelled Plasma Cell # (Manual) Cancelled Other Cells # Cancelled Nucleated RBCs # (Man) Cancelled Hypersegmented Neuts Cancelled Hyposegmented Neuts Cancelled Hypogranular Neuts Cancelled Large Granular Lymphs Cancelled # Lrg Granular Lymphs Cancelled Hairy Cells Cancelled Smudge Cells Cancelled Toxic Granulation Cancelled Toxic Vacuolation Cancelled Dohle Bodies Cancelled [place] Rods Cancelled Platelet Estimate Cancelled Hypogranular Platelets Cancelled Clumped Platelets Cancelled Giant Platelets Cancelled Platelet Satelliting Cancelled RBC Morphology Cancelled Polychromasia Cancelled Hypochromasia Cancelled Poikilocytosis Cancelled Basophilic Stippling Cancelled Anisocytosis Cancelled Microcytosis Cancelled Macrocytosis Cancelled Spherocytes Cancelled Pappenheimer Bodies Cancelled Sickle Cells Cancelled Target Cells Cancelled Tear Drop Cells Cancelled Ovalocytes Cancelled Stomatocytes Cancelled [place] Bodies Cancelled Echinocytes Cancelled Acanthocytes (Spur) Cancelled Rouleaux Cancelled RBC Agglutinates Cancelled Schistocytes Cancelled [place] Cell Cancelled Sodium 136 (136-145) mmol/L Potassium 4.7 (3.5-5.1) mmol/L Chloride 102 (98-107) mmol/L Carbon Dioxide 26 (21-32) mmol/L Anion Gap 8 (3-11) BUN 18 (6-23) mg/dl Creatinine 0.86 (0.6-1.4) mg/dl Est Cr Clr Drug Dosing 74.0 ml/min Est GFR ( Amer) 96.9 ml/min Est GFR (Non-Af Amer) 83.6 ml/min BUN/Creatinine Ratio 20.9 H (10-20) Glucose 155 H (70-99(Fasting)) mg/dl Calcium 9.3 (8.5-10.1) mg/dl Phosphorus 2.5 (2.5-4.9) mg/dl Magnesium 1.8 (1.7-2.4) mg/dl Total Bilirubin 1.0 (0.2-1.0) mg/dl AST 23 (13-39) U/L ALT 26 (7-52) U/L Alkaline Phosphatase 75 (34-104) U/L Troponin I High Sens 32.2 H D (0-20) pg/ml Total Protein 7.8 (6.0-8.3) gm/dl Albumin 4.6 (3.4-5.0) gm/dl Globulin 3.2 (2.5-4.0) gm/dl Albumin/Globulin Ratio 1.4 (0.9-2) TSH (0.300-4.500) uIu/ml SARS-CoV-2, RNA, NAAT NEGATIVE (NEGATIVE) Blood Parasites ID Cancelled 12/15/21 12/15/21 Range/Units 16:14 16:14 WBC 12.56 H RBC 4.75 Hgb 15.2 Hct 45.1 MCV 94.9 MCH 32.0 MCHC 33.7 RDW Std Deviation 41.9 RDW Coeff of Nick 12.0 Plt Count 280 MPV 10.3 Immature Gran % (Auto) 0.3 Neut % (Auto) 93.6 Lymph % (Auto) 4.1 [place] % (Auto) 1.8 Eos % (Auto) 0.0 Baso % (Auto) 0.2 Neut # (Auto) 11.76 H Lymph # (Auto) 0.52 L [place] # (Auto) 0.22 L Eos # (Auto) 0.00 Baso # (Auto) 0.02 Immature Gran # (Auto) 0.04 H Absolute Nucleated RBC Nucleated RBC % (auto) Neutrophils % (Manual) Band Neutrophils % Lymphocytes % (Manual) Prolymphocyte % Reactive Lymphs % (Man) Monocytes % (Manual) Eosinophils % (Manual) Basophils % (Manual) Metamyelocytes % (Man) Myelocytes % (Man) Promyelocytes % (Man) Blast Cells % (Manual) Plasma Cell % (Manual) Other Cells % Nucleated RBC % Neutrophils # (Manual) Band Neutrophils # Total Absolute Neuts Lymphocytes # (Manual) Prolymphocyte # Reactive Lymphs # Total Abs Lymphocytes Monocytes # (Manual) Eosinophils # (Manual) Basophils # (Manual) Metamyelocytes # (Man) Myelocytes # (Manual) Promyelocytes # (Man) Blast Cells # (Man) Plasma Cell # (Manual) Other Cells # Nucleated RBCs # (Man) Hypersegmented Neuts Hyposegmented Neuts Hypogranular Neuts Large Granular Lymphs # Lrg Granular Lymphs Hairy Cells Smudge Cells Toxic Granulation Toxic Vacuolation Dohle Bodies Yahir Rods Platelet Estimate Hypogranular Platelets Clumped Platelets Giant Platelets Platelet Satelliting RBC Morphology Polychromasia Hypochromasia Poikilocytosis Basophilic Stippling Anisocytosis Microcytosis Macrocytosis Spherocytes Pappenheimer Bodies Sickle Cells Target Cells Tear Drop Cells Ovalocytes Stomatocytes [place] Bodies Echinocytes 1+ Acanthocytes (Spur) Rouleaux RBC Agglutinates Schistocytes Sezary Cell Sodium (136-145) mmol/L Potassium (3.5-5.1) mmol/L Chloride (98-107) mmol/L Carbon Dioxide (21-32) mmol/L Anion Gap (3-11) BUN (6-23) mg/dl Creatinine (0.6-1.4) mg/dl Est Cr Clr Drug Dosing ml/min Est GFR ( Amer) ml/min Est GFR (Non-Af Amer) ml/min BUN/Creatinine Ratio (10-20) Glucose (70-99(Fasting)) mg/dl Calcium (8.5-10.1) mg/dl Phosphorus (2.5-4.9) mg/dl Magnesium (1.7-2.4) mg/dl Total Bilirubin (0.2-1.0) mg/dl AST (13-39) U/L ALT (7-52) U/L Alkaline Phosphatase (34-104) U/L Troponin I High Sens (0-20) pg/ml Total Protein (6.0-8.3) gm/dl Albumin (3.4-5.0) gm/dl Globulin (2.5-4.0) gm/dl Albumin/Globulin Ratio (0.9-2) TSH 0.975 (0.300-4.500) uIu/ml SARS-CoV-2, RNA, NAAT (NEGATIVE) Blood Parasites ID Administered Medications Discontinued Medications Gadobutrol (Gadobutrol 65ml Vial) 9 ml IV ONCE ONE Stop: 12/15/21 18:13 Last Admin: 12/15/21 18:12 Dose: 9 ml Documented By: VU Labetalol HCl (Labetalol Hcl Iv 5 Mg/Ml 20ml) 10 mg IV NOW STA Stop: 12/15/21 15:59 Last Admin: 12/15/21 16:07 Dose: 10 mg Documented By: PINEDA Co-signed By: FERNANDO Labetalol HCl (Labetalol Hcl Iv 5 Mg/Ml 20ml) 10 mg IV NOW STA Stop: 12/15/21 18:53 Last Admin: 12/15/21 18:58 Dose: 10 mg Documented By: PINEDA Co-signed By: RONNY Midazolam HCl (Midazolam Hcl 5 Mg/Ml Vial) 0.5 mg IV NOW STA Stop: 12/15/21 16:54 Last Admin: 12/15/21 17:07 Dose: 0.5 mg Documented By: PINEDA Imaging Data Radiologist's Impression: Head CT 12/15/21 14:15 CT OF THE HEAD WITHOUT CONTRAST CLINICAL HISTORY: HTN, paresthesias COMPARISON STUDY: Head CT January 10, 2015. CT DOSE: 691.05 mGy.cm TECHNIQUE: Helical axial images of the head were obtained without IV contrast. Automated exposure control was utilized for the study. A dose lowering technique was utilized adhering to the principles of ALARA. FINDINGS: A metallic density along the inferior aspect of the chest is unchanged. There is a 3.2 x 2.3 cm mass-like density within the posterior right temporal lobe. There is associated vasogenic edema. There is no midline shift. There is slight compression on the atrium of the right lateral ventricle. Ventricular system is unremarkable. Basal cisterns are patent. There are no extra axial collections. There are no findings to suggest acute dural sinus thrombosis or acute territorial infarct. IMPRESSION: 3.2 x 2.3 cm mass-like density within the posterior right temporal lobe with associated vasogenic edema. 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 An MRI of the brain with and without contrast is recommended for further evaluation. ACT 112: Positive. There are findings on this exam that require communication between the performing entity and the patient following Patient Test Result Information Act ([place] Act 112) guidelines. Electronically signed by: Sami Hernandez M.D. 12/15/2021 3:44 PM Chest X-Ray 12/15/21 14:16 XR chest 1V portable CLINICAL HISTORY: HTN, paresthesias TECHNIQUE: Single frontal radiograph of the chest was obtained. Comparison: Comparison is made to chest radiograph 12/06/2021 FINDINGS: No lines and tubes are seen. Borderline cardiomegaly is seen. Prominence and cephalization of the vasculature is seen. No evidence of pleural effusion or pneumothorax. IMPRESSION: Borderline cardiomegaly and mild pulmonary edema. ACT 112: Negative or not required by law. Electronically signed by: Ramiro Goodman M.D. 12/15/2021 3:46 PM Brain MRI 12/15/21 16:06 MR brain wo/w con CLINICAL HISTORY: Parietal finding on CT, HTN, intermit dizzy TECHNIQUE: Multiplanar and multisequence MR images of the brain were obtained pr ior to and following administration of gadolinium contrast. Comparison: Comparison is made to CT head 12/15/2021 FINDINGS: No abnormal restricted diffusion is identified. The white matter is unremarkable. The ventricular system is normal in appearance. There is a 26 x 24 mm right temporal lesion with a small amount of surrounding vasogenic edema. This lesion demonstrates avid irregular rim enhancement and contains a small dural tail. No bony invasion is seen. There is loss of the CSF cleft sign. There is mild mass effect upon the left lateral ventricle and no significant midline shift. A small amount of intralesional susceptibility artifact is seen which may represent hemorrhage. No extra axial fluid collections are seen. The corpus callosum, pituitary gland, and cerebellar tonsils appear grossly unremarkable. Flow voids of the major intracranial arterial vessels are identified. The imaged portions of the paranasal sinuses, mastoid air cells, and orbits are unremarkable. IMPRESSION: There is a 26 x 24 mm right temporal lesion with a dural tail. This is favored to represent a meningioma. Brain invasion cannot be excluded as the lesion proje cts deep into the temporal lobe with a small amount of surrounding vasogenic edema. There may be a small amount of intralesional hemorrhage. ACT 112: Negative or not required by law. Electronically signed by: Ramiro Goodman M.D. 12/15/2021 6:39 PM Discharge Plan Visit Data Chief Complaint: Illness Stated Complaint: BLOOD PRESSURE HIGH, PIN AND NEEDLES, SHAKEY ED Provider: Jose Albert Discharge Problem: Hypertensive urgency, Brain mass, Elevated troponin I level Patient Disposition: Being Evaluated by Hospitalist Forms Stand Alone Forms: My [facility] [place] [employer] Prescriptions Prescriptions: No Action atorvastatin 40 mg tablet 40 mg PO QAM Qty: 90 1RF Beano 150 unit tablet 150 unit PO BID PRN (Reason: Gastric Reflux) aspirin [Ecotrin] 325 mg tablet,delayed release (DR/EC) 325 mg PO QAM dutasteride [Avodart] 0.5 mg capsule 0.5 mg PO QAM nitroglycerin 0.4 mg tablet, sublingual 0.4 mg sublingual Q5M PRN (Reason: Chest Pain) Label Comments: Never used Rx Instructions: do not exceed 3 doses per episode omeprazole magnesium [Acid [employer] Practitioner (omeprazole)] 20 mg capsule,delayed release(DR/EC) 20 mg PO QAM lisinopril 40 mg tablet 40 mg PO QAM Referrals Referrals: Leonardo Gates CRNP [Primary Care Provider] -
[2021-12-15 16:29] LABS: Hematocrit (blood only) 45.1 % (40.1-51.0); Hemoglobin 15.2 g/dl (14.0-18.0); Mean Corpuscular Hgb Conc 33.7 g/dL (32.0-36.0); Mean Corpuscular Volume 94.9 fL (80.0-100.0); Mean Platelet Volume 10.3 fL (9.4-12.4); Platelet Count 280 K/uL (130-400); RDW Standard Deviation 41.9 fL (36.4-46.3); Red Blood Count 4.75 M/uL (4.63-6.08); White Blood Count 12.56 K/ul (4.8-10.8)
[2021-12-15] MEDS ORDERED: MIDAZOLAM HCL 5 MG/ML VIAL IV STA (16:53)
[2021-12-15 16:55] LABS: Basophils # (auto) 0.02 K/uL (0-0.2); Basophils % (auto) 0.2 %; Echinocytes 1+; Immature Granulocytes # (auto) 0.04 K/uL (0.00-0.02); Immature Granulocytes % (auto) 0.3 %; Lymphocytes # (auto) 0.52 K/uL (1.2-3.4); Lymphocytes % (auto) 4.1 %; Monocytes # (auto) 0.22 K/uL (0.24-0.82); Monocytes % (auto) 1.8 %; Neutrophils # (auto) 11.76 K/uL (1.4-6.5); Neutrophils % (auto) 93.6 %
[2021-12-15] MEDS ORDERED: GADOBUTROL 65ML VIAL IV ONE (18:12)
--- NOTE | 2021-12-15 18:41 | Magnetic Resonance Report ---
MR brain wo/w con CLINICAL HISTORY: Parietal finding on CT, HTN, intermit dizzy TECHNIQUE: Multiplanar and multisequence MR images of the brain were obtained prior to and following administration of gadolinium contrast. Comparison: Comparison is made to CT head 12/15/2021 FINDINGS: No abnormal restricted diffusion is identified. The white matter is unremarkable. The ventricular sys tem is normal in appearance. There is a 26 x 24 mm right temporal lesion with a small amount of surro unding vasogenic edema. This lesion demonstrates avid irregular rim enhancement and contains a small dural tail. No bony invasion is seen. There is loss of the CSF cleft sign. There is mild mass effect upon the left lateral ventricle and no significant midline shift. A small amount of intralesional richard ceptibility artifact is seen which may represent hemorrhage. No extra axial fluid collections are see n. The corpus callosum, pituitary gland, and cerebellar tonsils appear grossly unremarkable. Flow voids of the major intracranial arterial vessels are identified. The imaged portions of the para nasal sinuses, mastoid air cells, and orbits are unremarkable. IMPRESSION: There is a 26 x 24 mm right temporal lesion with a dural tail. This is favored to represent a meningi piero. Brain invasion cannot be excluded as the lesion projects deep into the temporal lobe with a smal l amount of surrounding vasogenic edema. There may be a small amount of intralesional hemorrhage. ACT 112: Negative or not required by law. Electronically signed by: Ramiro Goodman M.D. 12/15/2021 6:39 PM
--- NOTE | 2021-12-15 21:31 | History & Physical Report ---
Date of Service December 15, 2021 Assessment & Plan (1) Hypertensive urgency: Plan: 76yo male with PMHx CAD, AK, HTN, GERD, hypercholesteremia, diverticulitis, urinary retention, carotid stenosis presents for hypertensive urgency. HTN Urgency -presented to the ED with BP >200 systolic, asymptomatic; unclear at this time if symptoms due to uncontrolled essential HTN or brain mass as below -did have symptoms of dizziness, generalized headache, body paraesthesias morning which resolved following nitro administration at home -IV labetalol 10mg x2 in ED, BP improved to 170s systolic -will give IV Lopressor 5mg and metoprolol succinate 50mg, cont. to monitor BP; low threshold for systolic goal <130s given vasogenic edema surrounding brain mass -cont. 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 This is favored to represent a meningioma. Brain invasion cannot be excluded as the lesion projects deep into the temporal lobe with a small amount of surrounding vasogenic edema. There may be a small amount of intralesional hemorrhage. -ED discussed with of neurosurgery at [facility] describing the imaging reports and the patient's history. He reported at this point he recommend outpatient follow-up with the patient. -[facility] Neuro was consulted: okay for admission, neuro consult not necessary at this time -Recommend repeat CT tomorrow to look for progression of edema -hold anticoagulation and home aspirin given small hemorrhage -neuro checks q4h HTN, chronic -as above -on lisinopril 40mg qam for past few weeks, increased from 20mg; BP not c ontrolled as pt states BP in morning is in 160s systolically GERD -cont. home omeprazole Hypercholesteremia -cont. home statin Urinary Retention -cont. home dutasteride DVT ppx: SCDs FEN/GI: HH, low Na Code Status: full Dispo: PCU tele (2) Brain mass: (3) Elevated troponin I level: (4) Hypertension: (5) Myocardial infarction: (6) GERD (gastroesophageal reflux disease): (7) Hypercholesteremia: (8) Diverticulitis: (9) Paresthesia of bilateral legs: (10) Urinary retention: (11) Carotid stenosis, left: History of Present Illness Chief Complaint: HTN Urgency Primary Care Provider: ELIZABET Pimentel 76yo male with PMHx CAD, AK, HTN, GERD, hypercholesteremia, diverticulitis, urinary retention, carotid stenosis presents for hypertensive urgency. This morning after taking his home lisinopril 40 mg dose he checked his blood pressure and found his systolic to be over 200. He had associated symptoms of dizziness, generalized headache, cough, nausea, abdominal discomfort, bilateral leg paresthesia. He subsequently took his home nitroglycerin dose and his symptoms improved within [address] to the hospital. Per ED documentation, said he was acting weird this morning for few seconds as well as he was standing oddly at his breakfast, however, did not present with any seizures. Denies head trauma. Upon presenting to the ED patient was asymptomatic. Denies chest pain, shortness of breath, vomiting, palpitations. Patient states he has been having episodes of similar symptoms over the last couple of months. Also notes that most days he tends to get some dizziness when glancing at fast-moving objects or scrolling through the Internet. He consumes 3 cups of coffee per day and his diet seems to be high in sodium. Otherwise he is very active daily and quit smoking 30 years ago. Allergies Allergy/AdvReac Type Severity Reaction Status Date / Time No Known Allergies Allergy Unknown Verified 12/15/21 19:57 Home Medications Medication Instructions Recorded Confirmed Type [id number] 150 unit 150 unit PO BID PRN Gastric Reflux 01/27/20 12/15/21 History tablet (Beano) aspirin 325 mg tablet,delayed 325 mg PO QAM 01/27/20 12/15/21 History release (Ecotrin) dutasteride 0.5 mg capsule 0.5 mg PO QAM 01/27/20 12/15/21 History (Avodart) nitroglycerin 0.4 mg sublingual 0.4 mg sublingual Q5M PRN Chest 01/27/20 12/15/21 History tablet Pain omeprazole magnesium 20 mg 20 mg PO QAM 01/27/20 12/15/21 History capsule,delayed release (Acid Investment Strategist (omeprazole)) atorvastatin 40 mg tablet 40 mg PO QAM #90 tabs 08/31/21 12/15/21 Rx lisinopril 40 mg tablet 40 mg PO QAM 12/15/21 12/15/21 History Past Med/Surg History Medical History (Updated 12/16/21 @ 15:43 by Malini Castillo PA-C) Atherosclerotic heart disease of [place] coronary artery without angina pectoris Bilateral hydronephrosis BPH (benign prostatic hyperplasia) BPH with obstruction/lower urinary tract symptoms CAD (coronary artery disease) inferior wall AK 1989 s/p PTCA of the CX artery Carotid stenosis, left hx surgery for Chest pain Diverticulitis Foreign body in ear GERD (gastroesophageal reflux disease) History of coronary artery disease History of COVID-21 MAR 2020 History of AK (myocardial infarction) Hyperlipidemia Hypertension Hypertension Myocardial Infarction 1989 Nasal congestion Paresthesia of left arm and leg Paresthesia of left arm and leg Post-void dribbling Prostate nodule Pure hypercholesterolemia Urinary frequency Urinary tract infection, acute Surgical History History of colonoscopy History of cystoscopy History of left-sided carotid endarterectomy History of right cataract surgery History of tooth extraction Hx of angioplasty 1989- no stents Family History Father Lung cancer Myocardial infarction Mother Myocardial infarction Denies family history of Ovarian cancer Prostate cancer Breast cancer Colorectal cancer Social History Smoking Status: Former smoker Tobacco Type: Cigarettes packs per day: 0.5; Years Smoked: 20; Second Hand Exposure: No; Do You Dip or Chew Tobacco: No; Tobacco Cessation Education Requested by Patient: No Hx Alcohol Use: No Hx Substance Use: No Preferred Language: Syriac Communication Ability: Effective Visual Impairment: No Limitations Hearing Ability: Use of Hearing Aid [place] Required: No Beliefs That Will Affect Care: None marital status: marital status details: Amrita Current Living Situation: Spouse current occupational status: retired How many Children do You have: 0 Other Information That Helps Us Care for You: No Feels Safe at Home: Yes Safety Concerns: Feels Safe At This Time Childhood Exposure to Second-Hand Smoke: Yes (father ) Diet Comment: tries to eat healthy caffeine: Yes (3 cups daily ) during the past year weight has: remained stable Dental Care, Regularly: Yes Physical Activity Frequency: Daily Seatbelt Use: always Sunscreen Use: No Assistive Devices: Cane and Walker Review of Systems Review of Systems: All systems reviewed & are unremarkable except as noted in HPI & below Physical Exam Physical Exam: Constitutional: Well-developed, well-nourished patient, in no acute distress, pleasant, intact memory. Vitals as above. HEENT: No scleral injection or discharge. Moist mucous membranes. Clear oropharynx without exudate. Tympanic membranes are clear bilaterally.Hearing aid L ear. Neck: Supple without lymphadenopathy or thyromegaly. Trachea midline. Lungs: Clear to auscultation bilaterally with good effort. Cardiac: Regular rate and rhythm. No murmurs. Trace LE edema bilaterally. 2+ peripheral pulses. Abdomen: +BS. Soft, nontender, and nondistended.No guarding or rebound tenderness. No hepatosplenomegaly. MSK: No cyanosis or clubbing. Extremities motor strength 5/5. Skin: No rashes, warm, dry. Neurologic: Grossly intact cranial nerves and 2+ patellar tendon reflexes bilaterally. PERRL. Results & Data Results & Data ([facility]) Vital Signs (Past 12 Hours) Vital Signs Temp Pulse Pulse Resp BP BP Pulse Ox 12/15/21 20:00 85 20 173/77 H 95 12/15/21 18:26 88 20 171/89 H 98 12/15/21 15:17 209/105 H 12/15/21 13:50 36.6 C 98 H 20 204/91 H 94 O2 Del Method 12/15/21 20:00 Room Air 12/15/21 18:26 12/15/21 15:17 12/15/21 13:50 Room Air Laboratory Results Laboratory Results WBC 12.56 K/ul (4.8-10.8) H 12/15/21 16:14 RBC 4.75 M/uL (4.63-6.08) 12/15/21 16:14 Hgb 15.2 g/dl (14.0-18.0) 12/15/21 16:14 Hct 45.1 % (40.1-51.0) 12/15/21 16:14 MCV 94.9 fL (80.0-100.0) 12/15/21 16:14 MCH 32.0 pg (25.0-34.0) 12/15/21 16:14 MCHC 33.7 g/dL (32.0-36.0) 12/15/21 16:14 RDW Std Deviation 41.9 fL (36.4-46.3) 12/15/21 16:14 RDW Coeff of Nick 12.0 % (11.5-14.5) 12/15/21 16:14 Plt Count 280 K/uL (130-400) 12/15/21 16:14 MPV 10.3 fL (9.4-12.4) 12/15/21 16:14 Immature Gran % (Auto) 0.3 % 12/15/21 16:14 Neut % (Auto) 93.6 % 12/15/21 16:14 Lymph % (Auto) 4.1 % 12/15/21 16:14 [place] % (Auto) 1.8 % 12/15/21 16:14 Eos % (Auto) 0.0 % 12/15/21 16:14 Baso % (Auto) 0.2 % 12/15/21 16:14 Neut # (Auto) 11.76 K/uL (1.4-6.5) H 12/15/21 16:14 Lymph # (Auto) 0.52 K/uL (1.2-3.4) L 12/15/21 16:14 [place] # (Auto) 0.22 K/uL (0.24-0.82) L 12/15/21 16:14 Eos # (Auto) 0.00 K/uL (0-0.50) 12/15/21 16:14 Baso # (Auto) 0.02 K/uL (0-0.2) 12/15/21 16:14 Immature Gran # (Auto) 0.04 K/uL (0.00-0.02) H 12/15/21 16:14 Absolute Nucleated RBC Cancelled 12/15/21 15:16 Nucleated RBC % (auto) Cancelled 12/15/21 15:16 Neutrophils % (Manual) Cancelled 12/15/21 15:16 Band Neutrophils % Cancelled 12/15/21 15:16 Lymphocytes % (Manual) Cancelled 12/15/21 15:16 Prolymphocyte % Cancelled 12/15/21 15:16 Reactive Lymphs % (Man) Cancelled 12/15/21 15:16 Monocytes % (Manual) Cancelled 12/15/21 15:16 Eosinophils % (Manual) Cancelled 12/15/21 15:16 Basophils % (Manual) Cancelled 12/15/21 15:16 Metamyelocytes % (Man) Cancelled 12/15/21 15:16 Myelocytes % (Man) Cancelled 12/15/21 15:16 Promyelocytes % (Man) Cancelled 12/15/21 15:16 Blast Cells % (Manual) Cancelled 12/15/21 15:16 Plasma Cell % (Manual) Cancelled 12/15/21 15:16 Other Cells % Cancelled 12/15/21 15:16 Nucleated RBC % Cancelled 12/15/21 15:16 Neutrophils # (Manual) Cancelled 12/15/21 15:16 Band Neutrophils # Cancelled 12/15/21 15:16 Total Absolute Neuts Cancelled 12/15/21 15:16 Lymphocytes # (Manual) Cancelled 12/15/21 15:16 Prolymphocyte # Cancelled 12/15/21 15:16 Reactive Lymphs # Cancelled 12/15/21 15:16 Total Abs Lymphocytes Cancelled 12/15/21 15:16 Monocytes # (Manual) Cancelled 12/15/21 15:16 Eosinophils # (Manual) Cancelled 12/15/21 15:16 Basophils # (Manual) Cancelled 12/15/21 15:16 Metamyelocytes # (Man) Cancelled 12/15/21 15:16 Myelocytes # (Manual) Cancelled 12/15/21 15:16 Promyelocytes # (Man) Cancelled 12/15/21 15:16 Blast Cells # (Man) Cancelled 12/15/21 15:16 Plasma Cell # (Manual) Cancelled 12/15/21 15:16 Other Cells # Cancelled 12/15/21 15:16 Nucleated RBCs # (Man) Cancelled 12/15/21 15:16 Hypersegmented Neuts Cancelled 12/15/21 15:16 Hyposegmented Neuts Cancelled 12/15/21 15:16 Hypogranular Neuts Cancelled 12/15/21 15:16 Large Granular Lymphs Cancelled 12/15/21 15:16 # Lrg Granular Lymphs Cancelled 12/15/21 15:16 Hairy Cells Cancelled 12/15/21 15:16 Smudge Cells Cancelled 12/15/21 15:16 Toxic Granulation Cancelled 12/15/21 15:16 Toxic Vacuolation Cancelled 12/15/21 15:16 Dohle Bodies Cancelled 12/15/21 15:16 Yahir Rods Cancelled 12/15/21 15:16 Platelet Estimate Cancelled 12/15/21 15:16 Hypogranular Platelets Cancelled 12/15/21 15:16 Clumped Platelets Cancelled 12/15/21 15:16 Giant Platelets Cancelled 12/15/21 15:16 Platelet Satelliting Cancelled 12/15/21 15:16 RBC Morphology Cancelled 12/15/21 15:16 Polychromasia Cancelled 12/15/21 15:16 Hypochromasia Cancelled 12/15/21 15:16 Poikilocytosis Cancelled 12/15/21 15:16 Basophilic Stippling Cancelled 12/15/21 15:16 Anisocytosis Cancelled 12/15/21 15:16 Microcytosis Cancelled 12/15/21 15:16 Macrocytosis Cancelled 12/15/21 15:16 Spherocytes Cancelled 12/15/21 15:16 Pappenheimer Bodies Cancelled 12/15/21 15:16 Sickle Cells Cancelled 12/15/21 15:16 Target Cells Cancelled 12/15/21 15:16 Tear Drop Cells Cancelled 12/15/21 15:16 Ovalocytes Cancelled 12/15/21 15:16 Stomatocytes Cancelled 12/15/21 15:16 [place] Bodies Cancelled 12/15/21 15:16 Echinocytes 1+ 12/15/21 16:14 Acanthocytes (Spur) Cancelled 12/15/21 15:16 Rouleaux Cancelled 12/15/21 15:16 RBC Agglutinates Cancelled 12/15/21 15:16 Schistocytes Cancelled 12/15/21 15:16 Sezary Cell Cancelled 12/15/21 15:16 Sodium 136 mmol/L (136-145) 12/15/21 15:16 Potassium 4.7 mmol/L (3.5-5.1) 12/15/21 15:16 Chloride 102 mmol/L (98-107) 12/15/21 15:16 Carbon Dioxide 26 mmol/L (21-32) 12/15/21 15:16 Anion Gap 8 (3-11) 12/15/21 15:16 BUN 18 mg/dl (6-23) 12/15/21 15:16 Creatinine 0.86 mg/dl (0.6-1.4) 12/15/21 15:16 Est Cr Clr Drug Dosing 74.0 ml/min 12/15/21 15:16 Est GFR ( Amer) 96.9 ml/min 12/15/21 15:16 Est GFR (Non-Af Amer) 83.6 ml/min 12/15/21 15:16 BUN/Creatinine Ratio 20.9 (10-20) H 12/15/21 15:16 Glucose 155 mg/dl (70-99(Fasting)) H 12/15/21 15:16 Calcium 9.3 mg/dl (8.5-10.1) 12/15/21 15:16 Phosphorus 2.5 mg/dl (2.5-4.9) 12/15/21 15:16 Magnesium 1.8 mg/dl (1.7-2.4) 12/15/21 15:16 Total Bilirubin 1.0 mg/dl (0.2-1.0) 12/15/21 15:16 AST 23 U/L (13-39) 12/15/21 15:16 ALT 26 U/L (7-52) 12/15/21 15:16 Alkaline Phosphatase 75 U/L (34-104) 12/15/21 15:16 Troponin I High Sens 32.2 pg/ml (0-20) H D 12/15/21 15:16 Total Protein 7.8 gm/dl (6.0-8.3) 12/15/21 15:16 Albumin 4.6 gm/dl (3.4-5.0) 12/15/21 15:16 Globulin 3.2 gm/dl (2.5-4.0) 12/15/21 15:16 Albumin/Globulin Ratio 1.4 (0.9-2) 12/15/21 15:16 TSH 0.975 uIu/ml (0.300-4.500) 12/15/21 16:14 SARS-CoV-2, RNA, NAAT NEGATIVE (NEGATIVE) 12/15/21 16:05 Blood Parasites ID Cancelled 12/15/21 15:[address] 12/15/21 14:15 CT OF THE HEAD WITHOUT CONTRAST CLINICAL HISTORY: HTN, paresthesias COMPARISON STUDY: Head CT January 10, 2015. CT DOSE: 691.05 mGy.cm TECHNIQUE: Helical axial images of the head were obtained without IV contrast. Automated exposure control was utilized for the study. A dose lowering technique was utilized adhering to the principles of ALARA. FINDINGS: A metallic density along the inferior aspect of the chest is unchanged. There is a 3.2 x 2.3 cm mass-like density within the posterior right temporal lobe. There is associated vasogenic edema. There is no midline shift. There is slight compression on the atrium of the right lateral ventricle. Ventricular system is unremarkable. Basal cisterns are patent. There are no extr a axial collections. There are no findings to suggest acute dural sinus thrombosis or acute territorial infarct. IMPRESSION: 3.2 x 2.3 cm mass-like density within the posterior right temporal lobe with associated vasogenic edema. 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 An MRI of the brain with and without contrast is recommended for further evaluation. ACT 112: Positive. There are findings on this exam that require communication between the performing entity and the patient following Patient Test Result Information Act ([place] Act 112) guidelines. Electronically signed by: Sami Hernandez M.D. 12/15/2021 3:44 PM Chest X-Ray 12/15/21 14:16 XR chest 1V portable CLINICAL HISTORY: HTN, paresthesias TECHNIQUE: Single frontal radiograph of the chest was obtained. Comparison: Comparison is made to chest radiograph 12/06/2021 FINDINGS: No lines and tubes are seen. Borderline cardiomegaly is seen. Prominence and cephalization of the vasculature is seen. No evidence of pleural effusion or pneumothorax. IMPRESSION: Borderline cardiomegaly and mild pulmonary edema. ACT 112: Negative or not required by law. Electronically signed by: Ramiro Goodman M.D. 12/15/2021 3:46 PM Brain MRI 12/15/21 16:06 MR brain wo/w con CLINICAL HISTORY: Parietal finding on CT, HTN, intermit dizzy TECHNIQUE: Multiplanar and multisequence MR images of the brain were obtained prior to and following administration of gadolinium contrast. Comparison: Comparison is made to CT head 12/15/2021 FINDINGS: No abnormal restricted diffusion is identified. The white matter is unremarkable. The ventricular system is normal in appearance. There is a 26 x 24 mm right temporal lesion with a small amount of surrounding vasogenic edema. This lesion demonstrates avid irregular rim enhancement and contains a small dural tail. No bony invasion is seen. There is loss of the CSF cleft sign. There is mild mass effect upon the left lateral ventricle and no significant midline shift. A small amount of intralesional susceptibility artifact is seen which may represent hemorrhage. No extra axial fluid collections are seen. The corpus callosum, pituitary gland, and cerebellar tonsils appear grossly unremarkable. Flow voids of the major intracranial arterial vessels are identified. The imaged portions of the paranasal sinuses, mastoid air cells, and orbits are unremarkable. IMPRESSION: There is a 26 x 24 mm right temporal lesion with a dural tail. This is favored to represent a meningioma. Brain invasion cannot be excluded as the lesion projects deep into the temporal lobe with a small amount of surrounding vasogenic edema. There may be a small amount of intralesional hemorrhage. ACT 112: Negative or not required by law. Electronically signed by: Ramiro Goodman M.D. 12/15/2021 6:39 PM Supervising Physician Co-Signing Physician Notes Attending addendum: I have physically seen this patient, have supervised the medical residents activities, and agree with the H&P unless as otherwise noted. Assessment and Plan: Uncontrolled hypertension- Accompanied by dizziness, generalized headache, better body paresthesias, which improved with administration of nitroglycerin at home Received 10 mg labetalol IV x2 from the ED with systolic improved from 200s to 170s Give Lopressor 5 mg IV now and metoprolol succinate 50 mg p.o. now, and then twice daily Continue senna Aparna 40 mg every morning Admit to monitored bed 26 x 24 mm right temporal lobe lesion with dural tail, surrounding vasogenic edema/small intralesional hemorrhage- Target blood pressure to be 120/80 Medications as above ED has contacted [facility] neurosurgery, who feels the patient is not a transfer there. ED is also contacted neurology locally, feels the patient be admitted for care here Will repeat CT scan in a.m. Neurochecks per protocol Elevated troponin- Troponin 32.2 upon admission The patient will be admitted to telemetry for serial cardiac enzymes, serial EKG's, cardiac rhythm monitoring and a 2-D echocardiogram with Dopplers. Blood pressure control as noted above Remaining orders and notations as noted Resident Activity Tracking Resident Involvement: Resident Care Provided Care Provided: Adult Hospital Medicine (1) GERD (gastroesophageal reflux disease) Esophagitis presence: without esophagitis Qualified Code(s): K21.9 - Gastro- esophageal reflux disease without esophagitis
[2021-12-15] MEDS ORDERED: METOPROLOL TARTRATE 1 MG/ML VIAL IV STA (21:55)
[2021-12-15] MEDS ORDERED: METOPROLOL SUCC 50MG EXT REL TAB PO STA (22:29)
[2021-12-15] MEDS ORDERED: ONDANSETRON INJ 2 MG/ML 2 ML VIAL IV PRN (22:34)
[2021-12-15] MEDS ORDERED: NITROGLYCERIN SL 0.4 MG/TAB TAB SL PRN (22:34)
[2021-12-15] MEDS ORDERED: ACETAMINOPHEN 325 MG TAB PO PRN (22:34)
[2021-12-16 04:35] LABS: Appearance Urine Clear (Clear); Bacteria Urine Automated Negative (Negative); Bilirubin Urine Negative (Negative); Blood Urine Negative (Negative); Color Urine Yellow; Epithelial Cell Urine Auto 20-30 /lpf (0-5); Glucose Urine UA Negative (Negative); Ketones Urine Trace (Negative); Leukocyte Esterase Urine Negative (Negative); Nitrite Urine Negative (Negative); Protein Urine 1+ (Negative); RBC Urine Automated 0-4 /hpf (0-4); Specific Gravity Urine 1.021 (1.000-1.030); Urobilinogen Urine Negative (Negative)
[2021-12-16 06:53] LABS: Basophils # (auto) 0.02 K/uL (0-0.2); Basophils % (auto) 0.1 %; Hematocrit (blood only) 42.9 % (40.1-51.0); Hemoglobin 14.7 g/dl (14.0-18.0); Immature Granulocytes # (auto) 0.07 K/uL (0.00-0.02); Immature Granulocytes % (auto) 0.4 %; Lymphocytes % (auto) 8.4 %; Mean Corpuscular Hemoglobin 31.5 pg (25.0-34.0); Mean Corpuscular Hgb Conc 34.3 g/dL (32.0-36.0); Mean Corpuscular Volume 91.9 fL (80.0-100.0); Mean Platelet Volume 10.7 fL (9.4-12.4); Monocytes # (auto) 0.79 K/uL (0.24-0.82); Monocytes % (auto) 4.4 %; Neutrophils # (auto) 15.57 K/uL (1.4-6.5); Neutrophils % (auto) 86.7 %; Platelet Count 311 K/uL (130-400); RDW Coefficient of Variation 12.2 % (11.5-14.5); RDW Standard Deviation 41.1 fL (36.4-46.3); Red Blood Count 4.67 M/uL (4.63-6.08); White Blood Count 17.95 K/ul (4.8-10.8)
[2021-12-16 07:21] LABS: Anion Gap 8 (3-11); BUN Creatinine Ratio 30.1 (10-20); Blood Urea Nitrogen 25 mg/dl (6-23); C Reactive Protein < 0.50 mg/dl (0-0.5); Calcium 9.4 mg/dl (8.5-10.1); Carbon Dioxide 25 mmol/L (21-32); Chloride 99 mmol/L (98-107); Creatinine Clr Calc Pharmacy 76.3 ml/min; Est GFR (African American) 98.4 ml/min; Est GFR (Non-African American) 84.9 ml/min; Glucose 123 mg/dl (70-99(Fasting)); Potassium 3.8 mmol/L (3.5-5.1); Sodium 132 mmol/L (136-145)
[2021-12-16] MEDS: lisinopril 40 MG TAB PO SCH (09:03)
[2021-12-16] MEDS: ATORVASTATIN 40 MG TAB PO SCH (09:03)
[2021-12-16] MEDS: PANTOprazole 40 MG TAB PO SCH (09:03)
[2021-12-16] MEDS ORDERED: hydrALAZINE HCL 20 MG/ML VIAL IV PRN (14:22)
--- NOTE | 2021-12-16 14:27 | Hospitalist Progress Note ---
Date of Service December 16, 2021 Assessment & Plan (1) Hypertensive emergency: Plan: - Manifested by acutely elevated BP with systolic >200, pulmonary edema on CXR, and elevated troponin - Medicated with IV Labetalol 10mg IV x2 in ED with improvement - Given a dose of IV Lopressor 5mg x1 and PO Toprol XL 50mg x1 at time of admission - Resumed home dose of Lisinopril 40mg daily, given this AM - Will continue daily Metoprolol Succinate 50mg, give a dose now and then resume on a daily AM basis - BP has improved - Added Hydralazine 10mg IV q6h prn sbp>180 - Given evidence of pulmonary edema on imaging, will also give a dose of Lasix 40mg IV x1 now (2) Elevated troponin I level: Plan: - Obtain 2d Echo - Likely represents myocardial demand ischemia in setting of HTN emergency - HS trops are trending down - Continue Atorvastatin - Not on ASA ? (3) Brain mass: Plan: - Found incidentally on CT head with associated vasogenic edema - Followed up with MRI brain, again concern for malignancy, specifically GBM - ER team spoke with Radha who felt pt could be seen as outpatient - I personally called and spoke with neurosurgeon out of [facility], Dr. Barth, who felt that patient should be seen in CLOSE follow up as early as next week - Will arrange for f/u with Dr. Jordan. Start on low dose Decadron 2mg po BID - Monitor additional 24 hrs with starting low dose steroids to ensure no further uncontrolled HTN issues (4) Leukocytosis: Plan: - Unclear etiology - No obvious source of infection, UA clean, CXR with pulmonary edema no evidence of infiltrates/consolidations - No clinical sx, afebrile, CRP WNL - Check procalcitonin - No blood cultures collected and not presently on abx - Repeat labs in AM (5) BPH (benign prostatic hyperplasia): Plan: - Takes Avodart at home which is non-formulary here - Can resume upon d/c Plan Patient will be monitored additional 24 hours with medication adjustments as above, in addition to start low dose steroids. Repeat labs in AM. Updated family extensively at bedside. Plan d/w Dr. Whitmore, further orders as warranted. Admission and Anticipated Discharge Date Admission Date: December 15, 2021 Subjective Patient seen on daily rounds this morning. He is resting comfortably in bed, only c/o slight headache around back and sides of head. No vision changes, dizziness, cp, or dyspnea. Review of Systems Review of Systems: All systems reviewed and are unremarkable except as noted in HPI and below. Denies fever, chills, fatigue, nasal congestion, sore throat, cough, chest pain, shortness of breath, palpitations, orthopnea, PND, abdominal pain, n/v/d, constipation, dysuria, hematuria, frequency, back pain, joint pain or swelling, easy bruising or bleeding, skin lesions or rashes. Physical Exam Physical Exam: GENERAL: 76 yo Well-developed, well-nourished WM. NAD. LUNGS: Clear to auscultation bilaterally. No W/R/R. CARDIOVASCULAR: Regular rate and rhythm. ABDOMEN: Soft, non-tender and non-distended. BS normoactive x 4 quad. EXTREMITIES: No edema. Non-tender. Peripheral pulses +2/4. NEUROLOGIC: A&O x3. No focal neurological deficits. CN II-XII grossly intact. PSYCHIATRIC: Cooperative. Appropriate mood and affect. SKIN: Warm, dry, intact. No rashes or lesions. Results & Data Results & Data ([facility]) Vital Signs (Past 12 Hours) Vital Signs Temp Pulse Pulse Resp BP Pulse Ox O2 Del Method 12/16/21 11:21 37.0 C 70 18 151/62 H 97 Room Air 12/16/21 10:41 79 12/16/21 10:36 Room Air 12/16/21 07:40 36.7 C 72 18 174/74 H 98 Room Air 12/16/21 02:50 37.6 C H 82 18 133/55 L 97 Room Air Laboratory Results 12/16/21 06:16 12/16/21 06:16 PG Care Time/CCT Total # of Minutes Spent Total Time Spent with Patient: Total time spent is greater than 50% in coordination of care (as documented) at patient's floor/unit and/or counseling patient: Coding Level of Care Code 98393 Subseq Hosp Care Lvl 3 Diagnoses Hypertensive emergency I16.1 Elevated troponin I level R77.8 Brain mass G93.89 Leukocytosis D72.829 BPH (benign prostatic hyperplasia) N40.0
[2021-12-16] MEDS ORDERED: FUROSEMIDE 40 MG/4 ML VIAL IV ONE (15:35)
[2021-12-16] MEDS ORDERED: METOPROLOL SUCC 50MG EXT REL TAB PO ONE (16:00)
[2021-12-16] MEDS: dexAMETHasone 1 MG TAB PO SCH (20:20)
--- NOTE | 2021-12-16 21:06 | Electrocardiogram Report ---
Test Reason : Blood Pressure : / mmHG Vent. Rate : 087 BPM Atrial Rate : 087 BPM P-R Int : 140 ms QRS Dur : 092 ms QT Int : 386 ms P-R-T Axes : 041 029 046 degrees QTc Int : 464 ms Poor data quality, interpretation may be adversely affected Sinus rhythm with Premature atrial complexes Nonspecific ST abnormality Abnormal ECG When compared with ECG of 06-DEC-2021 05:55, Premature atrial complexes are now Present Confirmed by David Sepulveda ([id number]) on 12/16/2021 9:06:20 PM Referred By: REFERRED SELF Confirmed By:David Sepulveda
--- NOTE | 2021-12-16 22:52 | Billing Data ---
Date of Service December 16, 2021 Coding Level of Care Code 87706 Initial Inpt Care Lvl 3
[2021-12-17 06:33] LABS: Basophils # (auto) 0.02 K/uL (0-0.2); Basophils % (auto) 0.1 %; Hematocrit (blood only) 41.3 % (40.1-51.0); Hemoglobin 14.5 g/dl (14.0-18.0); Immature Granulocytes # (auto) 0.09 K/uL (0.00-0.02); Immature Granulocytes % (auto) 0.5 %; Lymphocytes # (auto) 1.73 K/uL (1.2-3.4); Lymphocytes % (auto) 8.8 %; Mean Corpuscular Hemoglobin 31.9 pg (25.0-34.0); Mean Corpuscular Hgb Conc 35.1 g/dL (32.0-36.0); Mean Platelet Volume 10.4 fL (9.4-12.4); Monocytes # (auto) 1.05 K/uL (0.24-0.82); Monocytes % (auto) 5.3 %; Neutrophils # (auto) 16.83 K/uL (1.4-6.5); Neutrophils % (auto) 85.3 %; Platelet Count 298 K/uL (130-400); RDW Coefficient of Variation 12.1 % (11.5-14.5); RDW Standard Deviation 40.1 fL (36.4-46.3); Red Blood Count 4.54 M/uL (4.63-6.08); White Blood Count 19.72 K/ul (4.8-10.8)
[2021-12-17 06:59] LABS: BUN Creatinine Ratio 34.9 (10-20); Calcium 8.7 mg/dl (8.5-10.1); Creatinine Clr Calc Pharmacy 76.3 ml/min; Est GFR (African American) 98.4 ml/min; Est GFR (Non-African American) 84.9 ml/min; Magnesium 1.8 mg/dl (1.7-2.4); Potassium 4.1 mmol/L (3.5-5.1)
[2021-12-17] MEDS: ATORVASTATIN 40 MG TAB PO SCH (08:12)
[2021-12-17] MEDS: PANTOprazole 40 MG TAB PO SCH (08:12)
[2021-12-17] MEDS: lisinopril 40 MG TAB PO SCH (08:12)
[2021-12-17] MEDS: dexAMETHasone 1 MG TAB PO SCH (08:12)
[2021-12-17] MEDS ORDERED: METOPROLOL SUCC 50MG EXT REL TAB PO SCH (09:00)
[2021-12-17] MEDS ORDERED: SODIUM CHLORIDE 0.9% 500 ML IV SCH (09:15)
--- NOTE | 2021-12-17 14:53 | XCELERA ---
[id number]
[2021-12-17 15:31] LABS: Calcium 8.7 mg/dl (8.5-10.1); Creatinine Clr Calc Pharmacy 67.3 ml/min; Est GFR (African American) 90.3 ml/min; Est GFR (Non-African American) 77.9 ml/min; Potassium 4.2 mmol/L (3.5-5.1)
--- NOTE | 2021-12-17 15:59 | Discharge Summary ---
Date of Service December 17, 2021 Admission HPI Per Admitting Provider 76yo male with PMHx CAD, CO, HTN, GERD, hypercholesteremia, diverticulitis, urinary retention, carotid stenosis presents for hypertensive urgency. This morning after taking his home lisinopril 40 mg dose he checked his blood pressure and found his systolic to be over 200. He had associated symptoms of dizziness, generalized headache, cough, nausea, abdominal discomfort, bilateral leg paresthesia. He subsequently took his home nitroglycerin dose and his symptoms improved within [address] to the hospital. Per ED documentation, said he was acting weird this morning for few seconds as well as he was standing oddly at his breakfast, however, did not present with any seizures. Denies head trauma. Upon presenting to the ED patient was asymptomatic. Denies chest pain, shortness of breath, vomiting, palpitations. Patient states he has been having episodes of similar symptoms over the last couple of months. Also notes that most days he tends to get some dizziness when glancing at fast-moving objects or scrolling through the Internet. He consumes 3 cups of coffee per day and his diet seems to be high in sodium. Otherwise he is very active daily and quit smoking 30 years ago. Principal Diagnosis 1. Hypertensive emergency 2. Elevated troponin secondary to myocardial demand ischemia 3. Brain mass 4. Hyponatremia/hypochloridemia-suspect diuretic induced Discharge Exam GENERAL: 76 yo Well-developed, well-nourished WM. NAD. LUNGS: Clear to auscultation bilaterally. No W/R/R. CARDIOVASCULAR: Regular rate and rhythm. ABDOMEN: Soft, non-tender and non-distended. BS normoactive x 4 quad. EXTREMITIES: No edema. Non-tender. Peripheral pulses +2/4. NEUROLOGIC: A&O x3. No focal neurological deficits. CN II-XII grossly intact. PSYCHIATRIC: Cooperative. Appropriate mood and affect. SKIN: Warm, dry, intact. No rashes or lesions. Discharge Data Allergies Allergy/AdvReac Type Severity Reaction Status Date / Time No Known Allergies Allergy Unknown Verified 12/15/21 19:57 Consultations 12/15/21 20:02 ED Decision to Admit Stat Ordered Studies Head CT 12/15/21 14:15 CT OF THE HEAD WITHOUT CONTRAST CLINICAL HISTORY: HTN, paresthesias COMPARISON STUDY: Head CT January 10, 2015. CT DOSE: 691.05 mGy.cm TECHNIQUE: Helical axial images of the head were obtained without IV contrast. Automated exposure control was utilized for the study. A dose lowering technique was utilized adhering to the principles of ALARA. FINDINGS: A metallic density along the inferior aspect of the chest is unchanged. There is a 3.2 x 2.3 cm mass-like density within the posterior right temporal lobe. There is associated vasogenic edema. There is no midline shift. There is slight compression on the atrium of the right lateral ventricle. Ventricular system is unremarkable. Basal cisterns are patent. There are no extra axial collections. There are no findings to suggest acute dural sinus thrombosis or acute territorial infarct. IMPRESSION: 3.2 x 2.3 cm mass-like density within the posterior right temporal lobe with associated vasogenic edema. 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 An MRI of the brain with and without contrast is recommended for further evaluation. ACT 112: Positive. There are findings on this exam that require communication between the performing entity and the patient following Patient Test Result Information Act ([place] Act 112) guidelines. Electronically signed by: Sami Hernandez M.D. 12/15/2021 3:44 PM Chest X-Ray 12/15/21 14:16 XR chest 1V portable CLINICAL HISTORY: HTN, paresthesias TECHNIQUE: Single frontal radiograph of the chest was obtained. Comparison: Comparison is made to chest radiograph 12/06/2021 FINDINGS: No lines and tubes are seen. Borderline cardiomegaly is seen. Prominence and cephalization of the vasculature is seen. No evidence of pleural effusion or pneumothorax. IMPRESSION: Borderline cardiomegaly and mild pulmonary edema. ACT 112: Negative or not required by law. Electronically signed by: Ramiro Goodman M.D. 12/15/2021 3:46 PM Brain MRI 12/15/21 16:06 MR brain wo/w con CLINICAL HISTORY: Parietal finding on CT, HTN, intermit dizzy TECHNIQUE: Multiplanar and multisequence MR images of the brain were obtained prior to and following administration of gadolinium contrast. Comparison: Comparison is made to CT head 12/15/2021 FINDINGS: No abnormal restricted diffusion is identified. The white matter is unremarkable. The ventricular system is normal in appearance. There is a 26 x 24 mm right temporal lesion with a small amount of surrounding vasogenic edema. This lesion demonstrates avid irregular rim enhancement and contains a small dural tail. No bony invasion is seen. There is loss of the CSF cleft sign. There is mild mass effect upon the left lateral ventricle and no significant midline shift. A small amount of intralesional susceptibility artifact is seen which may represent hemorrhage. No extra axial fluid collections are seen. The corpus callosum, pituitary gland, and cerebellar tonsils appear grossly unremarkable. Flow voids of the major intracranial arterial vessels are identified. The imaged portions of the paranasal sinuses, mastoid air cells, and orbits are unremarkable. IMPRESSION: There is a 26 x 24 mm right temporal lesion with a dural tail. This is favored to represent a meningioma. Brain invasion cannot be excluded as the lesion projects deep into the temporal lobe with a small amount of surrounding vasogenic edema. There may be a small amount of intralesional hemorrhage. ACT 112: Negative or not required by law. Electronically signed by: Ramiro Goodman M.D. 12/15/2021 6:39 PM Hospital Course (1) Hypertensive emergency: - Manifested by acutely elevated BP with systolic >200, pulmonary edema on CXR, and elevated troponin - Medicated with IV Labetalol 10mg IV x2 in ED with improvement - Given a dose of IV Lopressor 5mg x1 and PO Toprol XL 50mg x1 at time of admission - Resumed home dose of Lisinopril 40mg daily, given this AM - Will continue daily Metoprolol Succinate 50mg, give a dose now and then resume on a daily AM basis - Added Hydralazine 10mg IV q6h prn sbp>180 - Given evidence of pulmonary edema on imaging, was given a dose of IV Lasix 40mg x1 on 12/16 - BP has substantially improved since admission, this afternoon reading of 128/77 - Noted hyponatremia/hypochloridemia suspect related to diuresis, could simply follow up with repeat labs on Monday and cc results to [facility] [employer] [facility] (2) Elevated troponin I level: - Obtained 2d Echo-LV systolic function normal. No WMA. Mild concentric LVH. EF 65-70%. Mild MR. - Likely represents myocardial demand ischemia in setting of HTN emergency - HS trops are trending down - Continue Atorvastatin - Appears he takes full strength ASA at home, would hold this while on Decadron (as below) and can resume a BABY 81mg ASA upon completion of steroids (3) Brain mass: - Found incidentally on CT head with associated vasogenic edema - Followed up with MRI brain, again concern for malignancy, specifically GBM - ER team spoke with Radha who felt pt could be seen as outpatient - I personally called and spoke with neurosurgeon out of [facility], Dr. Barth, who felt that patient should be seen in CLOSE follow up as early as next week - Will arrange for f/u with Dr. Jordan. Start on low dose Decadron 2mg po BID - Given pt number to clinic, if he does not hear about a date/time for appt by Wednesday 12/20, he is to call their office. (4) Leukocytosis: - Unclear etiology - No obvious source of infection, UA clean, CXR with pulmonary edema no evidence of infiltrates/consolidations - No clinical sx, afebrile, CRP WNL - No blood cultures collected and not presently on abx - Repeat labs this AM shows even higher wbc BUT pt receiving steroids now - Procal is negative therefore I do NOT suspect a bacterial/infectious source driving his wbc count - Would consider further outpatient work up, including peripheral smear (5) BPH (benign prostatic hyperplasia): - Takes Avodart at home which is non-formulary here - Can resume upon d/c Plan Patient is medically and hemodynamically stable for discharge home today. Advised close pcp follow up next week and also to f/u as arranged with [facility] neurosurgery. Follow up labs to be drawn on Monday. PCP to consider further wbc count elevation as outpatient. Plan has been d/w Dr. Whitmore who has also seen and evaluated this patient. Total Time Total Time Spent Total Time Spent (In Minutes): >30 minutes Discharge Plan Discharge Items Patient Disposition: Home - Self-Care Reason For Visit: HTN URGENCY Discharge Diagnosis: uncontrolled high blood pressure, brain tumor Activity: Resume your previous activity Non-emergency contact: Primary Care Provider Call non-emergency contact if: you have any medication questions and your symptoms worsen Follow-up/Referrals: Leonardo Gates CRNP [Primary Care Provider] - Diet: Regular Ambulatory Orders: Basic Metabolic Panel (Routine) Timeframe: 20211220 Location: Determined by Patient Ordered By: Malini Castillo Complete Blood Count with Diff (Routine) Timeframe: 20211220 Location: Determined by Patient Ordered By: Malini Higgins Attending Provider Instructions: You were hospitalized due to uncontrolled high blood pressure. This was corrected by using medications both orally and through your IV. Incidentally, though your work up, you were found to have a mass on the right side of your brain. The appearance of the mass is concerning for cancer; however, this cannot be confirmed without further work up including a biopsy. I have spoke with [facility] on your behalf and they will be in contact with you to schedule an appointment to see one of their neurosurgeons who specialize in brain tumors. Her name is Dr. Jordan. The clinic number is [phone]. The imaging of your brain has been forwarded to [facility] for their review. If you have not received a call by Wednesday 12/20 with an appointment, please call their office. Because the tumor in your brain has swelling around it, you are being discharged on a steroid called Decadron. You will take 2 pills twice a day (once in the morning and once in the evening). Please take with food or snack of some sort. Regarding your blood pressure, you will be continued on Lisinopril 40mg once a day. You have also been started on Metoprolol Succinate 50mg, you will take this medication once a day as well in the morning. You can take it with your other medications. While you are taking the steroids, I would like you to not take your Aspirin. Once you are no longer taking the steroids, you can resume the Aspirin. It is recommended that you follow up with your primary care provider within 1 week of discharge. If you have any questions or concerns following your discharge that cannot be answered by your primary care doctor, please call the nonemergency number listed on your discharge paperwork. In the event of a medical emergency, call 911. Pending Studies at Discharge: No Stand-Alone Forms: [employer], Smoking Cessation Medications and DC Order Prescriptions: New metoprolol succinate 50 mg Tablet Extended Release 24 Hr 50 mg PO QAM Qty: 30 0RF dexamethasone 1 mg Tablet 2 mg PO BID Qty: 14 0RF Continued atorvastatin 40 mg tablet 40 mg PO QAM Qty: 90 1RF Beano 150 unit tablet 150 unit PO BID PRN (Reason: Gastric Reflux) dutasteride [Avodart] 0.5 mg capsule 0.5 mg PO QAM nitroglycerin 0.4 mg tablet, sublingual 0.4 mg sublingual Q5M PRN (Reason: Chest Pain) Label Comments: Never used Rx Instructions: do not exceed 3 doses per episode omeprazole magnesium [Acid Singer Back Tender (omeprazole)] 20 mg capsule,delayed release(DR/EC) 20 mg PO QAM lisinopril 40 mg tablet 40 mg PO QAM Discontinued aspirin [Ecotrin] 325 mg tablet,delayed release (DR/EC) 325 mg PO QAM Discharge Orders: Discharge Order (Routine); Ordered 12/17/21 Ordered By: Malini Castillo Admission Data Admit Date/Time: 12/15/21 21:46 Attending Provider: Romain Whitmore Admit Provider: Gasper Abernathy Primary Care Provider: Leonardo Gates Other Providers: Enio Azar Coding Level of Care Code D/C DAY MANAGEMENT >30 MINS Diagnoses Hypertensive emergency I16.1 Elevated troponin I level R77.8 Brain mass G93.89 Leukocytosis D72.829 BPH (benign prostatic hyperplasia) N40.0
== END 2021-12-17 17:08 | disposition home or self-care (01) | DRG 304 ==
LOC: ED 13:13 → SUATTDRO 21:46 → 4W 21:46

== ENCOUNTER 2022-02-11 15:39 | Inpatient (IN) ==
[2022-02-11] MEDS ORDERED: SODIUM CHLORIDE 0.9% 500 ML IV STA (16:36)
[2022-02-11 16:49] LABS: iSTAT Creatinine 0.9 mg/dl (0.6-1.3); iSTAT Hemoglobin 13.6 g/dl (14.0-18.0); iSTAT Ionized Calcium 1.1 mmol/l (1.12-1.32); iSTAT Potassium 3.9 mmol/L (3.3-5.0)
--- NOTE | 2022-02-11 16:51 | Emergency Department Note ---
Impression & Plan Acute hypoxemic respiratory failure, Pneumonia ED Provider Note NAME: NELSON LOU JR AGE: 76 SEX: M : 1945 ARRIVES VIA: Walk-In INFORMANT: Patient, ED PROVIDER(S): Prabhu Pacheco MD Chief Complaint: Hypoxia outpatient referral HPI: Patient presents as a referral as he had gone to the [facility] in [place] as he was having some mild leg discomfort and this was thought to be related to his statin use. The patient was noted to have low oxygen and was referred here for further evaluation and treatment. Patient did have a recent brain surgery for a glioblastoma. This was completed at [facility] several weeks ago. The patient is scheduled for radiation treatment this upco lisa week. Patient denies any chest pains or shortness of breath and has had no cough or fever. No recent travel. Patient denies any known sick contacts and denies any alcohol tobacco or drug use. No abdominal pain nausea vomiting. Patient denies any current leg pain. Patient denies any leg swelling. Patient has not used nitro recently. Patient denies any exposures ROS: See HPI for pertinent positives and negatives. A total of 10 systems were reviewed and otherwise negative. Past medical history: See below Surgical history: See below Social history: See below Physical Exam: GENERAL: NAD, wearing a mask, non-toxic. EYE EXAM: Normal conjunctiva. PERRL, no anisocoria and EOM's grossly intact w/o pain. NECK: Supple, no nuchal rigidity, no adenopathy, non-tender. No signs of menin gismus. FROM of the neck with good chin to chest and neck extension. No stridor. LUNGS: Clear to auscultation. Normal chest wall mechanics. HEART: NSR, no MRG. ABDOMEN: Abdomen soft, non-tender, normo-active bowel sounds, no masses, no rebound or guarding. BACK: No CVA TTP. SKIN: No rashes and no bruising. UPPER EXTREMITIES: Upper extremities are grossly normal. LOWER EXTREMITIES: Grossly normal, no edema. Negative Homans' sign bilaterally. Well-perfused. NEURO EXAM: A&O x3, cranial nerves II-XII grossly intact, normal speech, moves all 4 extremities. Differential diagnoses: Reactive airway disease, pneumonia, pneumothorax, COPD, CHF, infections, cardiac ischemia, pulmonary embolism, musculoskeletal, gastrointestinal, as well as other pathologies. Course: Patient was seen and evaluated the bedside. Full history physical exam was performed. Imaging Studies: See Below Cardiac monitoring: An order was placed for continuous cardiac monitoring. The monitor shows a rate of 65 with sinus rhythm. MDM: Patient was seen due to concern for hypoxia. The patient was noted to be hypoxe megan in triage and was placed on 6 L oxygen mask. Patient does not appear to be in respiratory distress. Blood work is obtained along with a VBG BNP troponin and CT angiography of the chest. Viral swabs also obtained. The patient has a mild white count of 12 with a hemoglobin of 12. The patient's platelet count shows thrombocytosis at 476. Patient's VBG shows a VBG pH 7.4 with a PCO2 of 28. Patient has mild hyponatremia at 133. Patient does have mild transaminitis with an elevated AST ALT and alk phos with the patient has no right upper quadrant pain no nausea vomiting or diarrhea. The patient's BNP and troponin not elevated. COVID flu and RSV negative. Methemoglobin is negative. The patient CT angiography of the chest does not show any evidence of PE. The patient does have groundglass opacities compatible with pneumonia. I did order procalcitonin. I did speak with the on-call hospitalist Evelyne Lomeli PA-C and Dr. López. The patient was admitted to the medicine service. Procalcitonin is not elevated. Antibiotics deferred to inpatient team at this time. I did receive an over read which noted that the patient may have a splenic infarct. This was conveyed to the inpatient team for further management. Critical Care: I have personally spent 42 minutes of critical care time in direct management of this patient. This includes bedside care, interpretation of diagnostic studies, and testing, discussion with consultants, patient, and family members, and other require inpatient management activities. This 42 minutes is in excess of all separately billable procedures. Past Med/Surg History Medical History Atherosclerotic heart disease of [place] coronary artery without angina pectoris Bilateral hydronephrosis BPH (benign prostatic hyperplasia) BPH with obstruction/lower urinary tract symptoms CAD (coronary artery disease) inferior wall NE 1989 s/p PTCA of the CX artery Carotid stenosis, left hx surgery for Chest pain Diverticulosis Foreign body in ear GERD (gastroesophageal reflux disease) Glioblastoma 01/04/[address] Jordan History of COVID-21 MAR 2020 Hyperlipidemia Hypertension Myocardial Infarction 1989 Nasal congestion Paresthesia of left arm and leg Post-void dribbling Prostate nodule Pure hypercholesterolemia Urinary frequency Urinary tract infection, acute Surgical History History of cataract surgery Bilateral History of colonoscopy History of craniotomy 01/04/22 History of cystoscopy History of left-sided carotid endarterectomy History of tooth extraction Hx of angioplasty 1989- no stents Family History Father , 86yo Lung cancer Myocardial infarction Hypertension Mother , 92yo Pacemaker Hypertension Sister H/O carotid endarterectomy Stroke following surgery; Hypertension Dyslipidemia Sister Dyslipidemia Hypertension Melanoma Sister Hypertension Denies family history of Ovarian cancer Prostate cancer Breast cancer Colorectal cancer Social History Smoking Status: Former smoker Tobacco Type: Cigarettes packs per day: 0.5; Second Hand Exposure: No; Hx Alcohol Use: No Hx Substance Use: No Preferred Language: Cymraes Communication Ability: Effective Visual Impairment: No Limitations Hearing Ability: Use of Hearing Aid Motorcycle Tester Required: No Beliefs That Will Affect Care: None marital status: marital status details: Amrita Current Living Situation: Spouse current occupational status: retired How many Children do You have: 0 Feels Safe at Home: Yes Childhood Exposure to Second-Hand Smoke: Yes (father ) Diet Comment: tries to eat healthy caffeine: Yes (3 cups daily ) during the past year weight has: remained stable Dental Care, Regularly: Yes Physical Activity Frequency: Daily Seatbelt Use: always Sunscreen Use: No Allergies Allergies Allergy/AdvReac Type Severity Reaction Status Date / Time No Known Allergies Allergy Unknown Verified 02/11/22 17:38 Home Meds Home Medications Medication Instructions Recorded Confirmed nitroglycerin 0.4 mg sublingual 0.4 mg sublingual Q5M PRN Chest 01/27/20 02/11/22 tablet Pain aspirin 325 mg tablet 325 mg PO QAM 12/27/21 02/11/22 multivitamin (Multiple Vitamins 1 tab PO DAILY 02/02/22 02/11/22 tablet) omeprazole 20 mg capsule,delayed 20 mg PO DAILY 02/02/22 02/11/22 release acetaminophen 500 mg tablet 500 - 1,000 mg PO DIRECTED PRN 02/11/22 02/11/22 (Tylenol Extra Strength) Pain [id number] 450 unit 450 unit PO BID PRN Gi Upset 02/11/22 02/11/22 disintegrating tablet (Beano) methylcellulose (laxative) 2 g PO DAILY 02/11/22 02/11/22 (Citrucel Sugar Free oral powder) ondansetron 8 mg disintegrating 8 mg PO Q12H PRN TAKE PRIOR TO 02/11/22 02/11/22 tablet CHEMO MED temozolomide 140 mg capsule 140 mg PO DAILY 02/11/22 02/11/22 Previous Rx's Medication Instructions Recorded atorvastatin 40 mg tablet 40 mg PO QAM #90 tabs 08/31/21 lisinopril 40 mg tablet 40 mg PO QAM #90 tabs 12/29/21 dutasteride 0.5 mg capsule 0.5 mg PO QAM #90 caps 01/07/22 (Avodart) metoprolol succinate 50 mg 50 mg PO QAM #90 tabs 01/11/22 tablet,extended release 24 hr Results & Data (ED) Vital Signs Vital Signs - 24 hr 02/11/22 16:11 02/11/22 16:15 02/11/22 16:25 Temperature 36.7 C Temperature Source Temporal Artery Scan Pulse Rate 81 Pulse Rate [Apical] Pulse Rhythm [Apical] Respiratory Rate 22 Respiratory Effort / Characteristics Non-Labored Spontaneous Respiratory Depth Normal Respiratory Pattern Regular Blood Pressure 120/66 Blood Pressure [Right Arm] Blood Pressure Mean 84 Blood Pressure Mean [Right Arm] Pulse Oximetry 61 L 98 94 Oxygen Delivery Method Room Air Non-rebreather Oxymask Oxygen Flow Rate 15 6 Sepsis Recent Fever Within 48 Hours No Sepsis New/Unexplained Change in Mental Status No Sepsis Action Taken by Nursing No Action Required 02/11/22 16:30 02/11/22 17:30 02/11/22 18:00 Temperature Temperature Source Pulse Rate Pulse Rate [Apical] 73 71 78 Pulse Rhythm [Apical] Regular Regular Regular Respiratory Rate 16 16 16 Respiratory Effort / Characteristics Non-Labored Non-Labored Non-Labored Respiratory Depth Normal Normal Normal Respiratory Pattern Blood Pressure Blood Pressure [Right Arm] 127/79 152/74 H 163/80 H Blood Pressure Mean Blood Pressure Mean [Right Arm] 95 100 107 Pulse Oximetry 94 94 93 Oxygen Delivery Method Oxymask Oxymask Oxymask Oxygen Flow Rate 6 6 6 Sepsis Recent Fever Within 48 Hours Sepsis New/Unexplained Change in Mental Status Sepsis Action Taken by Long Term Medications Current Medication List: was personally reviewed by me Laboratory Data Attestation: I reviewed the patient's lab results. Result diagrams: 02/11/22 16:56 02/11/22 16:29 Lab Results 02/11/22 02/11/22 02/11/22 Range/Units 16:29 16:29 16:29 WBC (4.8-10.8) K/ul RBC (4.63-6.08) M/uL Hgb (14.0-18.0) g/dl POC Hgb (14.0-18.0) g/dl Hct (40.1-51.0) % POC Hct (42-52) % MCV (80.0-100.0) fL MCH (25.0-34.0) pg MCHC (32.0-36.0) g/dL RDW Std Deviation (36.4-46.3) fL RDW Coeff of Nick (11.5-14.5) % Plt Count (130-400) K/uL MPV (9.4-12.4) fL Immature Gran % (Auto) % Neut % (Auto) % Lymph % (Auto) % [place] % (Auto) % Eos % (Auto) % Baso % (Auto) % Neut # (Auto) (1.4-6.5) K/uL Lymph # (Auto) (1.2-3.4) K/uL [place] # (Auto) (0.24-0.82) K/uL Eos # (Auto) (0-0.50) K/uL Baso # (Auto) (0-0.2) K/uL Immature Gran # (Auto) (0.00-0.02) K/uL Absolute Nucleated RBC (0-0) K/uL Nucleated RBC % (auto) % PT INR APTT PTT Ratio ABG pH (7.35-7.45) ABG pCO2 (35-46) mmHg ABG pO2 (80-95) mmHg ABG HCO3 (19-24) mmol/L ABG O2 Saturation (90-95) % ABG Base Excess (-9-1.8) mEq/L Artur Test (Pos) VBG pH 7.48 H (7.36-7.41) VBG pCO2 28 L (38-50) mmHg VBG pO2 66 mmHg VBG HCO3 21 mmol/L VBG O2 Saturation 95.8 % VBG Base Excess -1.4 mEq/L Methemoglobin (0.0-1.5) % Oxygen Given POC Sodium (135-144) mmol/L Sodium 133 L (136-145) mmol/L POC Potassium (3.3-5.0) mmol/L Potassium 3.9 (3.5-5.1) mmol/L POC Chloride (101-112) mmol/L Chloride 101 (98-107) mmol/L Carbon Dioxide 22 (21-32) mmol/L POC Total CO2 (24-31) mmol/L Anion Gap 10 (3-11) POC Anion Gap (16-25) mmol/L POC BUN (7-18) mg/dl BUN 27 H (6-23) mg/dl Creatinine 0.90 (0.6-1.4) mg/dl POC Creatinine (0.6-1.3) mg/dl Est Cr Clr Drug Dosing Not Reportable Est GFR ( Amer) 95.1 ml/min Est GFR (Non-Af Amer) 82.1 ml/min BUN/Creatinine Ratio 30.0 H (10-20) Glucose 85 (70-99(Fasting)) mg/dl POC Glucose (other) (70-99) mg/dl Calcium 8.5 (8.5-10.1) mg/dl POC Ioniz Calcium [place] (1.12-1.32) mmol/l Total Bilirubin 0.8 (0.2-1.0) mg/dl AST 68 H (13-39) U/L ALT 54 H (7-52) U/L Alkaline Phosphatase 209 H (34-104) U/L Troponin I High Sens 11.8 D (0-20) pg/ml B-Natriuretic Peptide (0-100) pg/ml Total Protein 7.9 (6.0-8.3) gm/dl Albumin 2.9 L (3.4-5.0) gm/dl Globulin 5.0 H (2.5-4.0) gm/dl Albumin/Globulin Ratio 0.6 L (0.9-2) Procalcitonin (0-0.5) ng/ml SARS-CoV-2 (PCR) (Negative) Influenza Type A (PCR) (Neg) Influenza Type B (PCR) (Neg) RSV (RT-PCR) (Neg) 02/11/22 02/11/22 02/11/22 Range/Units 16:29 16:35 16:56 WBC 12.24 H (4.8-10.8) K/ul RBC 4.03 L (4.63-6.08) M/uL Hgb 12.5 L (14.0-18.0) g/dl POC Hgb 13.6 L (14.0-18.0) g/dl Hct 37.4 L (40.1-51.0) % POC Hct 40 L (42-52) % MCV 92.8 (80.0-100.0) fL MCH 31.0 (25.0-34.0) pg MCHC 33.4 (32.0-36.0) g/dL RDW Std Deviation 48.4 H (36.4-46.3) fL RDW Coeff of Nick 14.5 (11.5-14.5) % Plt Count 476 H (130-400) K/uL MPV 9.5 (9.4-12.4) fL Immature Gran % (Auto) 2.0 % Neut % (Auto) 70.3 % Lymph % (Auto) 16.7 % [place] % (Auto) 7.4 % Eos % (Auto) 2.9 % Baso % (Auto) 0.7 % Neut # (Auto) 8.62 H (1.4-6.5) K/uL Lymph # (Auto) 2.04 (1.2-3.4) K/uL [place] # (Auto) 0.90 H (0.24-0.82) K/uL Eos # (Auto) 0.36 (0-0.50) K/uL Baso # (Auto) 0.08 (0-0.2) K/uL Immature Gran # (Auto) 0.24 H (0.00-0.02) K/uL Absolute Nucleated RBC 0.03 H (0-0) K/uL Nucleated RBC % (auto) 0.2 % PT INR APTT PTT Ratio ABG pH (7.35-7.45) ABG pCO2 (35-46) mmHg ABG pO2 (80-95) mmHg ABG HCO3 (19-24) mmol/L ABG O2 Saturation (90-95) % ABG Base Excess (-9-1.8) mEq/L Artur Test (Pos) VBG pH (7.36-7.41) VBG pCO2 (38-50) mmHg VBG pO2 mmHg VBG HCO3 mmol/L VBG O2 Saturation % VBG Base Excess mEq/L Methemoglobin (0.0-1.5) % Oxygen Given POC Sodium 135 (135-144) mmol/L Sodium (136-145) mmol/L POC Potassium 3.9 (3.3-5.0) mmol/L Potassium (3.5-5.1) mmol/L POC Chloride 102 (101-112) mmol/L Chloride (98-107) mmol/L Carbon Dioxide (21-32) mmol/L POC Total CO2 22 L (24-31) mmol/L Anion Gap (3-11) POC Anion Gap 15.0 L (16-25) mmol/L POC BUN 24 H (7-18) mg/dl BUN (6-23) mg/dl Creatinine (0.6-1.4) mg/dl POC Creatinine 0.9 (0.6-1.3) mg/dl Est Cr Clr Drug Dosing Est GFR ( Amer) ml/min Est GFR (Non-Af Amer) ml/min BUN/Creatinine Ratio (10-20) Glucose (70-99(Fasting)) mg/dl POC Glucose (other) 89 (70-99) mg/dl Calcium (8.5-10.1) mg/dl POC Ioniz Calcium [place] 1.10 L (1.12-1.32) mmol/l Total Bilirubin (0.2-1.0) mg/dl AST (13-39) U/L ALT (7-52) U/L Alkaline Phosphatase (34-104) U/L Troponin I High Sens (0-20) pg/ml B-Natriuretic Peptide (0-100) pg/ml Total Protein (6.0-8.3) gm/dl Albumin (3.4-5.0) gm/dl Globulin (2.5-4.0) gm/dl Albumin/Globulin Ratio (0.9-2) Procalcitonin 0.26 (0-0.5) ng/ml SARS-CoV-2 (PCR) (Negative) Influenza Type A (PCR) (Neg) Influenza Type B (PCR) (Neg) RSV (RT-PCR) (Neg) 02/11/22 02/11/22 02/11/22 Range/Units 16:56 16:56 16:56 WBC (4.8-10.8) K/ul RBC (4.63-6.08) M/uL Hgb (14.0-18.0) g/dl POC Hgb (14.0-18.0) g/dl Hct (40.1-51.0) % POC Hct (42-52) % MCV (80.0-100.0) fL MCH (25.0-34.0) pg MCHC (32.0-36.0) g/dL RDW Std Deviation (36.4-46.3) fL RDW Coeff of Nick (11.5-14.5) % Plt Count (130-400) K/uL MPV (9.4-12.4) fL Immature Gran % (Auto) % Neut % (Auto) % Lymph % (Auto) % [place] % (Auto) % Eos % (Auto) % Baso % (Auto) % Neut # (Auto) (1.4-6.5) K/uL Lymph # (Auto) (1.2-3.4) K/uL [place] # (Auto) (0.24-0.82) K/uL Eos # (Auto) (0-0.50) K/uL Baso # (Auto) (0-0.2) K/uL Immature Gran # (Auto) (0.00-0.02) K/uL Absolute Nucleated RBC (0-0) K/uL Nucleated RBC % (auto) % PT Cancelled INR Cancelled APTT Cancelled PTT Ratio Cancelled ABG pH (7.35-7.45) ABG pCO2 (35-46) mmHg ABG pO2 (80-95) mmHg ABG HCO3 (19-24) mmol/L ABG O2 Saturation (90-95) % ABG Base Excess (-9-1.8) mEq/L Artur Test (Pos) VBG pH (7.36-7.41) VBG pCO2 (38-50) mmHg VBG pO2 mmHg VBG HCO3 mmol/L VBG O2 Saturation % VBG Base Excess mEq/L Methemoglobin < 0.7 (0.0-1.5) % Oxygen Given POC Sodium (135-144) mmol/L Sodium (136-145) mmol/L POC Potassium (3.3-5.0) mmol/L Potassium (3.5-5.1) mmol/L POC Chloride (101-112) mmol/L Chloride (98-107) mmol/L Carbon Dioxide (21-32) mmol/L POC Total CO2 (24-31) mmol/L Anion Gap (3-11) POC Anion Gap (16-25) mmol/L POC BUN (7-18) mg/dl BUN (6-23) mg/dl Creatinine (0.6-1.4) mg/dl POC Creatinine (0.6-1.3) mg/dl Est Cr Clr Drug Dosing Est GFR ( Amer) ml/min Est GFR (Non-Af Amer) ml/min BUN/Creatinine Ratio (10-20) Glucose (70-99(Fasting)) mg/dl POC Glucose (other) (70-99) mg/dl Calcium (8.5-10.1) mg/dl POC Ioniz Calcium [place] (1.12-1.32) mmol/l Total Bilirubin (0.2-1.0) mg/dl AST (13-39) U/L ALT (7-52) U/L Alkaline Phosphatase (34-104) U/L Troponin I High Sens 11.8 (0-20) pg/ml B-Natriuretic Peptide (0-100) pg/ml Total Protein (6.0-8.3) gm/dl Albumin (3.4-5.0) gm/dl Globulin (2.5-4.0) gm/dl Albumin/Globulin Ratio (0.9-2) Procalcitonin (0-0.5) ng/ml SARS-CoV-2 (PCR) (Negative) Influenza Type A (PCR) (Neg) Influenza Type B (PCR) (Neg) RSV (RT-PCR) (Neg) 02/11/22 02/11/22 02/11/22 Range/Units 16:57 17:15 18:13 WBC (4.8-10.8) K/ul RBC (4.63-6.08) M/uL Hgb (14.0-18.0) g/dl POC Hgb (14.0-18.0) g/dl Hct (40.1-51.0) % POC Hct (42-52) % MCV (80.0-100.0) fL MCH (25.0-34.0) pg MCHC (32.0-36.0) g/dL RDW Std Deviation (36.4-46.3) fL RDW Coeff of Nick (11.5-14.5) % Plt Count (130-400) K/uL MPV (9.4-12.4) fL Immature Gran % (Auto) % Neut % (Auto) % Lymph % (Auto) % [place] % (Auto) % Eos % (Auto) % Baso % (Auto) % Neut # (Auto) (1.4-6.5) K/uL Lymph # (Auto) (1.2-3.4) K/uL [place] # (Auto) (0.24-0.82) K/uL Eos # (Auto) (0-0.50) K/uL Baso # (Auto) (0-0.2) K/uL Immature Gran # (Auto) (0.00-0.02) K/uL Absolute Nucleated RBC (0-0) K/uL Nucleated RBC % (auto) % PT 12.8 H INR 1.2 H APTT 33.1 H PTT Ratio 1.2 ABG pH (7.35-7.45) ABG pCO2 (35-46) mmHg ABG pO2 (80-95) mmHg ABG HCO3 (19-24) mmol/L ABG O2 Saturation (90-95) % ABG Base Excess (-9-1.8) mEq/L Artur Test (Pos) VBG pH (7.36-7.41) VBG pCO2 (38-50) mmHg VBG pO2 mmHg VBG HCO3 mmol/L VBG O2 Saturation % VBG Base Excess mEq/L Methemoglobin (0.0-1.5) % Oxygen Given POC Sodium (135-144) mmol/L Sodium (136-145) mmol/L POC Potassium (3.3-5.0) mmol/L Potassium (3.5-5.1) mmol/L POC Chloride (101-112) mmol/L Chloride (98-107) mmol/L Carbon Dioxide (21-32) mmol/L POC Total CO2 (24-31) mmol/L Anion Gap (3-11) POC Anion Gap (16-25) mmol/L POC BUN (7-18) mg/dl BUN (6-23) mg/dl Creatinine (0.6-1.4) mg/dl POC Creatinine (0.6-1.3) mg/dl Est Cr Clr Drug Dosing Est GFR ( Amer) ml/min Est GFR (Non-Af Amer) ml/min BUN/Creatinine Ratio (10-20) Glucose (70-99(Fasting)) mg/dl POC Glucose (other) (70-99) mg/dl Calcium (8.5-10.1) mg/dl POC Ioniz Calcium [place] (1.12-1.32) mmol/l Total Bilirubin (0.2-1.0) mg/dl AST (13-39) U/L ALT (7-52) U/L Alkaline Phosphatase (34-104) U/L Troponin I High Sens (0-20) pg/ml B-Natriuretic Peptide 82 (0-100) pg/ml Total Protein (6.0-8.3) gm/dl Albumin (3.4-5.0) gm/dl Globulin (2.5-4.0) gm/dl Albumin/Globulin Ratio (0.9-2) Procalcitonin (0-0.5) ng/ml SARS-CoV-2 (PCR) NEGATIVE (Negative) Influenza Type A (PCR) Negative (Neg) Influenza Type B (PCR) Negative (Neg) RSV (RT-PCR) Negative (Neg) Administered Medications Azithromycin 500 mg/ Dextrose 255 mls @ 127.5 mls/hr IV NOW STA Stop: 02/11/22 20:52 Last Admin: 02/11/22 19:16 Dose: 127.5 mls/hr Documented By: LM Discontinued Medications Sodium Chloride (Nss) 500 mls @ 999 mls/hr IV .Q31M STA Stop: 02/11/22 17:06 Last Admin: 02/11/22 19:16 Dose: 999 mls/hr Documented By: SM Ioversol (Optiray 320 500ml) 124 ml IV ONCE ONE Stop: 02/11/22 17:07 Last Admin: 02/11/22 17:06 Dose: 124 ml Documented By: HOMERO Imaging Data Radiologist's Impression: Chest CTA 02/11/22 16:36 CT angio chest PE protocol CLINICAL HISTORY: Dyspnea TECHNIQUE: Multidetector row helical CT of the chest was performed with an giographic protocol. Coronal and sagittal reformations were obtained. Coronal and sagittal MIPS were obtained from the axial data set and were submitted for review. Automated dose lowering techniques and/or adjustment according to patient size were utilized for this exam. CT DOSE: 576.74 mGy.cm Comparison: Comparison is made to chest radiograph 12/15/2021 FINDINGS: Lungs and pleura: Diffuse groundglass opacities are seen in the bilateral lungs. Heart and pericardium: Heart size is normal. No pericardial effusion. Vessels: No evidence of pulmonary embolism. Moderate atherosclerotic disease is seen in the coronary arteries and aorta. Mediastinum and kadeem: Subcentimeter lymph nodes are seen. Chest wall and lower neck: Unremarkable. Abdomen: Unremarkable. Bones: Degenerative changes in the thoracic spine. IMPRESSION: Extensive groundglass opacities are seen compatible with pneumonia. No evidence of pulmonary embolus. ACT 112: Negative or not required by law. Electronically signed by: Ramiro Goodman M.D. 02/11/2022 5:20 PM Discharge Plan Visit Data Chief Complaint: Referred by Doctor Stated Complaint: REFERRED BY DOC,OXYGEN LEVELS DOWN, ED Provider: Prabhu Pacheco Discharge Problem: Acute hypoxemic respiratory failure, Pneumonia Patient Disposition: Admitted As Inpatient Discharge Instructions Interventions: ED Discharge Assessment Last Done: 02/11/22 20:00
[2022-02-11] MEDS ORDERED: OPTIRAY 320 500ml IV ONE (17:06)
--- NOTE | 2022-02-11 17:21 | CT Scan Report ---
CT angio chest PE protocol CLINICAL HISTORY: Dyspnea TECHNIQUE: Multidetector row helical CT of the chest was performed with angiographic protocol. Bazzi l and sagittal reformations were obtained. Coronal and sagittal MIPS were obtained from the axial susan a set and were submitted for review. Automated dose lowering techniques and/or adjustment according to patient size were utilized for this exam. CT DOSE: 576.74 mGy.cm Comparison: Comparison is made to chest radiograph 12/15/2021 FINDINGS: Lungs and pleura: Diffuse groundglass opacities are seen in the bilateral lungs. Heart and pericardium: Heart size is normal. No pericardial effusion. Vessels: No evidence of pulmonary embolism. Moderate atherosclerotic disease is seen in the coronary arteries and aorta. Mediastinum and kadeem: Subcentimeter lymph nodes are seen. Chest wall and lower neck: Unremarkable. Abdomen: Unremarkable. Bones: Degenerative changes in the thoracic spine. IMPRESSION: Extensive groundglass opacities are seen compatible with pneumonia. No evidence of pulmonary embolus. ACT 112: Negative or not required by law. Electronically signed by: Ramiro Goodman M.D. 02/11/2022 5:20 PM
[2022-02-11 17:25] LABS: Basophils # (auto) 0.08 K/uL (0-0.2); Basophils % (auto) 0.7 %; Eosinophils # (auto) 0.36 K/uL (0-0.50); Eosinophils % (auto) 2.9 %; Hematocrit (blood only) 37.4 % (40.1-51.0); Hemoglobin 12.5 g/dl (14.0-18.0); Immature Granulocytes # (auto) 0.24 K/uL (0.00-0.02); Lymphocytes # (auto) 2.04 K/uL (1.2-3.4); Lymphocytes % (auto) 16.7 %; Mean Corpuscular Hgb Conc 33.4 g/dL (32.0-36.0); Mean Corpuscular Volume 92.8 fL (80.0-100.0); Mean Platelet Volume 9.5 fL (9.4-12.4); Monocytes % (auto) 7.4 %; Neutrophils # (auto) 8.62 K/uL (1.4-6.5); Neutrophils % (auto) 70.3 %; Nucleated RBC # (auto) 0.03 K/uL (0-0); Nucleated RBC % (auto) 0.2 %; Platelet Count 476 K/uL (130-400); RDW Coefficient of Variation 14.5 % (11.5-14.5); RDW Standard Deviation 48.4 fL (36.4-46.3); Red Blood Count 4.03 M/uL (4.63-6.08); White Blood Count 12.24 K/ul (4.8-10.8)
[2022-02-11 17:31] LABS: HCO3 VBG 21 mmol/L; PCO2 VBG 28 mmHg (38-50); PO2 VBG 66 mmHg; pH VBG 7.48 (7.36-7.41)
[2022-02-11 17:32] LABS: Base Excess VBG -1.4 mEq/L; Oxygen Saturation VBG 95.8 %
[2022-02-11 17:43] LABS: Alanine Aminotransferase 54 U/L (7-52); Albumin Globulin Ratio 0.6 (0.9-2); Albumin Level 2.9 gm/dl (3.4-5.0); Alkaline Phosphatase 209 U/L (34-104); Anion Gap 10 (3-11); Aspartate Aminotransferase 68 U/L (13-39); Bilirubin,Total 0.8 mg/dl (0.2-1.0); Blood Urea Nitrogen 27 mg/dl (6-23); Calcium 8.5 mg/dl (8.5-10.1); Carbon Dioxide 22 mmol/L (21-32); Chloride 101 mmol/L (98-107); Est GFR (African American) 95.1 ml/min; Est GFR (Non-African American) 82.1 ml/min; Glucose 85 mg/dl (70-99(Fasting)); Potassium 3.9 mmol/L (3.5-5.1); Sodium 133 mmol/L (136-145); Total Protein 7.9 gm/dl (6.0-8.3)
[2022-02-11 17:47] LABS: Troponin I High Sensitivity 11.8 pg/ml (0-20)
--- NOTE | 2022-02-11 17:58 | History & Physical Report ---
Date of Service February 11, 2022 Assessment & Plan (1) Pneumonia: Plan: - No infection symptoms, he was at her PCP appointment today to discuss bilateral leg cramping, no shortness of breath, chest pain, palpitations, dyspnea. - Found to be hypoxic to 70s on room air at PCP appointment this afternoon, in ED he initially presented 61% on room air, now on 6/minute OxyMask. - Chest CTA: Extensive groundglass opacities are seen compatible with pneumonia. No evidence of pulmonary embolus. - Leukocytosis 24, with left shift, procalcitonin 0.26. - Off steroids for 1.5 weeks. - COVID/flu/RSV negative, will order respiratory biofire and add on atypical coverage for now. - Blood cultures collected. - Supportive care. (2) Glioblastoma: Plan: - S/p resection at [facility] [place]. - Plan for chemo with radiation daily x 6 weeks, first session scheduled for next Friday 02/16 (3) Hypertension: Plan: - Continue lisinopril and metoprolol. (4) GERD (gastroesophageal reflux disease): Plan: - Continue PPI. (5) CAD (coronary artery disease): Plan: - [place] in 1989. - Continue aspirin, statin, lisinopril, metoprolol with nitro as needed. (6) Transaminitis: Plan: - AST 68, ALT 54, alk phos 209, all acutely elevated. - COVID negative. - Recently finished out a 7-day course of fluconazole for thrush. - CTAP for CA dx/staging--> no primary mass or met disease in chest/abdomen/pelvis. - Hold statin for now. Plan - Admit to med telemetry. - SCDs and Lovenox for VTE PPx. - Full code. History of Present Illness Chief Complaint: hypoxic at PCP office this afternoon Primary Care Provider: ELIZABET Pimentel Jose Bose is a 76-year-old male with past medical history significant for glioblastoma, CAD, hypertension, GERD, who presents today from his PCP office due to hypoxia. He was at a visit today with an unrelated issue of bilateral leg cramping when he was found to be 75 to 78% on room air, with mild improveme nt to 90-92% on 6L NC. He was transported to ED by private vehicle and his , and on presentation is without many complaints. He may have had some chills over the past couple days, and has had a dry throat since extubation first tumor resection several weeks ago, was recently prescribed fluconazole for thrush for which he recently finished several days ago. He has an occasional dry cough, but is otherwise without any fever, body aches, weakness, fatigue, noticeable shortness of breath, chest pain, or palpitations. No one has been sick around him. He checks his temperature daily and it is always been 97 to 98 F. He presented to our ED 61% on room air, now up to 94% on oxygen mask. Otherwise vital signs are within normal limits. Labs are significant for an elevated WBC of 12, Hgb 12.5, platelets 476. Mild acute transaminitis, AST 68, ALT 54, alk phos 2 9. VBG: pH 7.48, CO2 28, O2 66, bicarb 21. Sodium mildly low at 133, renal function at baseline. Blood cultures collected. COVID/flu/RSV negative. Chest CT today shows extensive groundglass opacities compatible with pneumonia, no evidence of pulmonary emboli. Allergies Allergy/AdvReac Type Severity Reaction Status Date / Time No Known Allergies Allergy Unknown Verified 02/11/22 17:38 Home Medications Medication Instructions Recorded Confirmed Type nitroglycerin 0.4 mg sublingual 0.4 mg sublingual Q5M PRN Chest 01/27/20 02/11/22 History tablet Pain atorvastatin 40 mg tablet 40 mg PO QAM #90 tabs 08/31/21 02/11/22 Rx aspirin 325 mg tablet 325 mg PO QAM 12/27/21 02/11/22 History lisinopril 40 mg tablet 40 mg PO QAM #90 tabs 12/29/21 02/11/22 Rx dutasteride 0.5 mg capsule 0.5 mg PO QAM #90 caps 01/07/22 02/11/22 Rx (Avodart) metoprolol succinate 50 mg 50 mg PO QAM #90 tabs 01/11/22 02/11/22 Rx tablet,extended release 24 hr multivitamin (Multiple Vitamins 1 tab PO DAILY 02/02/22 02/11/22 History tablet) omeprazole 20 mg capsule,delayed 20 mg PO DAILY 02/02/22 02/11/22 History release acetaminophen 500 mg tablet 500 - 1,000 mg PO DIRECTED PRN 02/11/22 02/11/22 History (Tylenol Extra Strength) Pain [id number] 450 unit 450 unit PO BID PRN Gi Upset 02/11/22 02/11/22 History disintegrating tablet (Beano) methylcellulose (laxative) 2 g PO DAILY 02/11/22 02/11/22 History (Citrucel Sugar Free oral powder) ondansetron 8 mg disintegrating 8 mg PO Q12H PRN TAKE PRIOR TO 02/11/22 02/11/22 History tablet CHEMO MED temozolomide 140 mg capsule 140 mg PO DAILY 02/11/22 02/11/22 History Past Med/Surg History Medical History (Updated 02/12/22 @ 09:27 by Byron Hoffmann MD) Atherosclerotic heart disease of [place] coronary artery without angina pectoris Bilateral hydronephrosis BPH (benign prostatic hyperplasia) BPH with obstruction/lower urinary tract symptoms CAD (coronary artery disease) inferior wall TX 1989 s/p PTCA of the CX artery Carotid stenosis, left hx surgery for Chest pain Diverticulosis Foreign body in ear GERD (gastroesophageal reflux disease) Glioblastoma 01/04/[address] Jordan History of COVID-21 MAR 2020 Hyperlipidemia Hypertension Myocardial Infarction 1989 Nasal congestion Paresthesia of left arm and leg Pneumonitis Post-void dribbling Prostate nodule Pure hypercholesterolemia Urinary frequency Urinary tract infection, acute Surgical History History of cataract surgery Bilateral History of colonoscopy History of craniotomy 01/04/22 History of cystoscopy History of left-sided carotid endarterectomy History of tooth extraction Hx of angioplasty 1989- no stents Family History Father , 86yo Lung cancer Myocardial infarction Hypertension Mother , 92yo Pacemaker Hypertension Sister H/O carotid endarterectomy Stroke following surgery; Hypertension Dyslipidemia Sister Dyslipidemia Hypertension Melanoma Sister Hypertension Denies family history of Ovarian cancer Prostate cancer Breast cancer Colorectal cancer Social History Smoking Status: Former smoker Tobacco Type: Cigarettes packs per day: 0.5; Second Hand Exposure: No; Do You Dip or Chew Tobacco: No; Tobacco Cessation Education Requested by Patient: No Hx Alcohol Use: No Hx Substance Use: No Preferred Language: Malagasy Communication Ability: Effective Visual Impairment: No Limitations Hearing Ability: Use of Hearing Aid [employer]ee Developer Required: No Beliefs That Will Affect Care: None marital status: marital status details: Amrita Current Living Situation: Spouse current occupational status: retired How many Children do You have: 0 Other Information That Helps Us Care for You: No Feels Safe at Home: Yes Safety Concerns: Feels Safe At This Time Childhood Exposure to Second-Hand Smoke: Yes (father ) Diet Comment: tries to eat healthy caffeine: Yes (3 cups daily ) during the past year weight has: remained stable Dental Care, Regularly: Yes Physical Activity Frequency: Daily Seatbelt Use: always Sunscreen Use: No Assistive Devices: Cane, Denture - Upper, Denture - Lower, Glasses and Oxygen - Continuous Review of Systems Review of Systems: Constitutional: chills over past few days; No fever, weakness, fatigue, myalg ias, anorexia, night sweats Eyes: No diplopia, no worsening or blurred vision ENT: normal hearing, no trouble swallowing Respiratory: dry mouth since extubation for tumor resection, unchanged, occa sional dry cough; no sputum, dyspnea at rest or on exertion Cardiovascular: No chest pain, tightness or palpitations Abdomen: No pain, nausea, vomiting, diarrhea or constipation : Denies dysuria, hematuria, increased urgency/frequency, urinary retention Musculoskeletal: No joint pain, calf pain, swelling Neurologic: No weakness, numbness/tingling, or balance problems Psychiatric: No anxiety or depression Skin: No rash or itch Physical Exam Physical Exam: General: awake, alert, no apparent distress Head: Normocephalic, atraumatic ENT: PERRL, EOMI, no pharyngeal exudate, mucous membranes moist Chest: Crackles heard in bilateral lower posterior lung byrd; otherwise clear to auscultation Cardiac: Regular rate and rhythm, no murmur, no JVD, normal peripheral pulses, good capillary refill Abdominal: NABS x 4 quadrants, soft, nontender to palpation, no rebound, guarding or tenderness Extremities: Normal inspection, no peripheral edema or erythema, calfs nontender to palpation Psych: Normal mood and affect Neuro: AAO x 3, strength intact bilaterally and rated 5/5, no motor deficits, speech is clear, no peripheral sensory deficits Skin: no rash or erythema Results & Data Results & Data ([facility]) Vital Signs (Past 12 Hours) Vital Signs Temp Pulse Pulse Resp BP BP Pulse Ox 02/11/22 17:30 71 16 152/74 H 94 02/11/22 16:30 73 16 127/79 94 02/11/22 16:25 94 02/11/22 16:15 98 02/11/22 16:11 36.7 C 81 22 120/66 61 L O2 Del Method O2 Flow Rate 02/11/22 17:30 Oxymask 6 02/11/22 16:30 Oxymask 6 02/11/22 16:25 Oxymask 6 02/11/22 16:15 Non-rebreather 15 02/11/22 16:11 Room Air Laboratory Results Abnormal lab results 02/11/22 02/11/22 02/11/22 Range/Units 16:29 16:29 16:35 WBC (4.8-10.8) K/ul RBC (4.63-6.08) M/uL Hgb (14.0-18.0) g/dl POC Hgb 13.6 L (14.0-18.0) g/dl Hct (40.1-51.0) % POC Hct 40 L (42-52) % RDW Std Deviation (36.4-46.3) fL Plt Count (130-400) K/uL Neut # (Auto) (1.4-6.5) K/uL Mcintosh # (Auto) (0.24-0.82) K/uL Immature Gran # (Auto) (0.00-0.02) K/uL Absolute Nucleated RBC (0-0) K/uL PT (9.0-12.0) Seconds INR (0.9-1.1) APTT (21.0-31.0) Seconds VBG pH 7.48 H (7.36-7.41) VBG pCO2 28 L (38-50) mmHg Sodium 133 L (136-145) mmol/L POC Total CO2 22 L (24-31) mmol/L POC Anion Gap 15.0 L (16-25) mmol/L POC BUN 24 H (7-18) mg/dl BUN 27 H (6-23) mg/dl BUN/Creatinine Ratio 30.0 H (10-20) POC Ioniz Calcium [place] 1.10 L (1.12-1.32) mmol/l AST 68 H (13-39) U/L ALT 54 H (7-52) U/L Alkaline Phosphatase 209 H (34-104) U/L Albumin 2.9 L (3.4-5.0) gm/dl Globulin 5.0 H (2.5-4.0) gm/dl Albumin/Globulin Ratio 0.6 L (0.9-2) 02/11/22 02/11/22 Range/Units 16:56 18:13 WBC 12.24 H (4.8-10.8) K/ul RBC 4.03 L (4.63-6.08) M/uL Hgb 12.5 L (14.0-18.0) g/dl POC Hgb (14.0-18.0) g/dl Hct 37.4 L (40.1-51.0) % POC Hct (42-52) % RDW Std Deviation 48.4 H (36.4-46.3) fL Plt Count 476 H (130-400) K/uL Neut # (Auto) 8.62 H (1.4-6.5) K/uL [place]osh # (Auto) 0.90 H (0.24-0.82) K/uL Immature Gran # (Auto) 0.24 H (0.00-0.02) K/uL Absolute Nucleated RBC 0.03 H (0-0) K/uL PT 12.8 H (9.0-12.0) Seconds INR 1.2 H (0.9-1.1) APTT 33.1 H (21.0-31.0) Seconds VBG pH (7.36-7.41) VBG pCO2 (38-50) mmHg Sodium (136-145) mmol/L POC Total CO2 (24-31) mmol/L POC Anion Gap (16-25) mmol/L POC BUN (7-18) mg/dl BUN (6-23) mg/dl BUN/Creatinine Ratio (10-20) POC Ioniz Calcium [place] (1.12-1.32) mmol/l AST (13-39) U/L ALT (7-52) U/L Alkaline Phosphatase (34-104) U/L Albumin (3.4-5.0) gm/dl Globulin (2.5-4.0) gm/dl Albumin/Globulin Ratio (0.9-2) Diagnostic Findings Chest CTA 02/11/22 16:36 CT angio chest PE protocol CLINICAL HISTORY: Dyspnea TECHNIQUE: Multidetector row helical CT of the chest was performed with angiographic protocol. Coronal and sagittal reformations were obtained. Coronal and sagittal MIPS were obtained from the axial data set and were submitted for review. Automated dose lowering techniques and/or adjustment according to patient size were utilized for this exam. CT DOSE: 576.74 mGy.cm Comparison: Comparison is made to chest radiograph 12/15/2021 FINDINGS: Lungs and pleura: Diffuse groundglass opacities are seen in the bilateral lungs. Heart and pericardium: Heart size is normal. No pericardial effusion. Vessels: No evidence of pulmonary embolism. Moderate atherosclerotic disease is seen in the coronary arteries and aorta. Mediastinum and kadeem: Subcentimeter lymph nodes are seen. Chest wall and lower neck: Unremarkable. Abdomen: Unremarkable. Bones: Degenerative changes in the thoracic spine. IMPRESSION: Extensive groundglass opacities are seen compatible with pneumonia. No evidence of pulmonary embolus. ACT 112: Negative or not required by law. Electronically signed by: Ramiro Goodman M.D. 02/11/2022 5:20 PM Code Status & VTE Plan Code Status Full Code. Supervising Physician Co-Signing Physician Notes Patient seen and examined, chart reviewed, case discussed with Evelyne Lomeli PA-C and I agree with the assessment and plan as above except as otherwise noted Labs and images reviewed Jose is a 76-year-old male with past medical history of CAD, glioblastoma s/p resection and chemoradiation, craniotomy, hyponatremia, hypertension, [place], GERD, hypercholesterolemia, and left-sided carotid stenosis who was found to be hypoxic at PCP appointment and who was referred to the ER for acute hypoxic respiratory failure with no home oxygen requirement. In the ER required 6 L oxygen mask to obtain saturation greater than 90%. CTA does not show evidence of PE but does show diffuse groundglass opacities. Patient does have a mild transaminitis, no metastatic disease of the liver was appreciated on anterior byrd of CTA, liver percent as noted above.Notices chills, sore throat, fatigue. Denies lightheadedness/dizziness/chest pain. Sputum intermittently productive for white mucus, but generally nonproductive dry cough. Crackles in bibasilar lungs, forced expiration with trace wheeze. Heart rate is regular. Nontoxic-appearing. Agree with treatment of pneumonia above, no evidence of PE. Recommend addition of CAP coverage in addition to atypical coverage, pulm consulted? PJP coverage, otherwise management as above PG Care Time/CCT Total # of Minutes Spent Total Time Spent with Patient: Total time spent is greater than 50% in coordination of care (as documented) at patient's floor/unit and/or counseling patient: Coding Level of Care Code 98849 Initial Inpt Care Lvl 3 Diagnoses Pneumonia J18.9 Glioblastoma C71.9 Hypertension I10 GERD (gastroesophageal reflux disease) K21.9 Esophagitis presence: without esophagitis CAD (coronary artery disease) I25.10 Transaminitis R74.01 (1) GERD (gastroesophageal reflux disease) Esophagitis presence: without esophagitis Qualified Code(s): K21.9 - Gastro- esophageal reflux disease without esophagitis
[2022-02-11 18:22] LABS: Influenza A virus by PCR Negative (Neg); Influenza B virus by PCR Negative (Neg); RSV by PCR Negative (Neg); SARS CoV2 RNA(COVID-19)Cepheid NEGATIVE (Negative)
[2022-02-11 18:35] LABS: INR 1.2 (0.9-1.1); Partial Thromboplastin Ratio 1.2; Partial Thromboplastin Time 33.1 Seconds (21.0-31.0); Prothrombin Time 12.8 Seconds (9.0-12.0)
[2022-02-11] MEDS ORDERED: AZITHROMYCIN 500 MG in DEXTROSE 5% 250 ML IV STA (18:53)
[2022-02-11] MEDS ORDERED: ACETAMINOPHEN 325 MG TAB PO PRN (19:55)
[2022-02-11] MEDS ORDERED: POLYETHYLENE (MIRALAX) 17 GM PACK PO PRN (19:55)
[2022-02-11] MEDS ORDERED: NITROGLYCERIN SL 0.4 MG/TAB TAB SL PRN (19:55)
[2022-02-11] MEDS ORDERED: ALPHA D GALACTOSIDASE PO PRN (19:55)
[2022-02-11] MEDS ORDERED: ALUMINUM/MAGNESIUM SUSP 30 ML UDC PO PRN (19:55)
[2022-02-11] MEDS ORDERED: ONDANSETRON INJ 2 MG/ML 2 ML VIAL IV PRN (19:55)
[2022-02-11] MEDS ORDERED: ALBUTEROL 0.083% NEBU SOLN 3 ML VIAL NEB PRN (19:55)
[2022-02-11 20:45] LABS: Adenovirus PCR Not Detected (NotDetected); Bordetella parapertussis PCR Not Detected (NotDetected); Bordetella pertussis PCR Not Detected (NotDetected); Chlamydia pneumoniae PCR Not Detected (NotDetected); Coronavirus 229E PCR Not Detected (NotDetected); Coronavirus CoV-2 (COVID19)PCR Not Detected (NotDetected); Coronavirus HKU1 PCR Not Detected (NotDetected); Coronavirus NL63 PCR Not Detected (NotDetected); Coronavirus OC43PCR Not Detected (NotDetected); Human Metapneumovirus PCR Not Detected (NotDetected); Influenza A PCR Not Detected (NotDetected); Influenza B PCR Not Detected (NotDetected); Mycoplasma pneumoniae PCR Not Detected (NotDetected); Parainfluenza Virus 1 PCR Not Detected (NotDetected); Parainfluenza Virus 2 PCR Not Detected (NotDetected); Parainfluenza Virus 3 PCR Not Detected (NotDetected); Parainfluenza Virus 4 PCR Not Detected (NotDetected); Respiratory Syncytial VirusPCR Not Detected (NotDetected); Rhinovirus/Enterovirus PCR Not Detected (NotDetected)
[2022-02-11] MEDS ORDERED: ENOXAPARIN INJ 40 MG/0.4 ML SYR SQ SCH (21:00)
[2022-02-11] MEDS ORDERED: OPTIRAY 350 100ml IV ONE (21:47)
[2022-02-11] MEDS: LACTATED RINGER'S 1,000 ML IV SCH (21:57)
--- NOTE | 2022-02-11 22:55 | CT Scan Report ---
CT abd pelvis IV con only CLINICAL HISTORY: ? Splenic infarct TECHNIQUE: Helical axial images of the abdomen and pelvis were obtained and displayed. Automated dose lowering techniques and/or adjustment according to patient size were utilized for this exam. This e xam was performed with intravenous contrast. CT DOSE: 457.98 mGy.cm COMPARISON: Comparison is made to CT abdomen pelvis 01/21/2016 FINDINGS: Exam is limited by patient motion. Lower chest: For findings above the diaphragm, please see CT chest performed same day. Liver: Hepatic steatosis is noted. Gallbladder and biliary tree: The gallbladder is contracted. No intra- or extrahepatic biliary ductal dilation. Pancreas: Fatty replacement of the pancreas is seen. Spleen: 2 major wedge shaped hypoenhancing foci are seen in the spleen compatible with infarct. Adrenals: Unremarkable. Kidneys and ureters: Unremarkable. Bladder: The bladder is moderately distended. Reproductive organs: Prostatic calcifications are seen which may represent prior hemorrhage or granul omatous disease. Bowel: Diverticulosis is seen without evidence of diverticulitis. Lymph nodes Retroperitoneal: Unremarkable. Pelvic: Unremarkable. Mesenteric: Unremarkable. Peritoneum: Normal. Vessels: Atherosclerotic calcifications are seen. There is a small infrarenal aortic aneurysm measuri ng 24 mm with mural thrombus noted. Within limits of a nondedicated exam. The great vessels appear gr ossly patent. Abdominal wall: A fat-containing umbilical hernia is seen. Bones: Degenerative changes in the visualized spine. IMPRESSION: 1. 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 Otherwise no acute abnormality is seen. Extensive atherosclerotic dise ase is noted and there is a small infrarenal aneurysm with mural thrombus, however within the limits of a nondedicated exam, the great vessels appear patent. 2. Moderately distended bladder, may again represent bladder outlet obstruction. 3. Hepatic steatosis ACT 112: Negative or not required by law. Electronically signed by: Ramiro Goodman M.D. 02/11/2022 10:53 PM
--- NOTE | 2022-02-12 02:54 | Communication Note ---
Date of Service: February 12, 2022 possible splenic infarct incidentally found on chest CTA CT abd/pelvis was then ordered by admitting team to f/u on this. It shows multiple splenic infarcts. Hold sq lovenox. avoid nsaids. Dayteam to follow.
[2022-02-12 05:46] LABS: Basophils # (auto) 0.07 K/uL (0-0.2); Basophils % (auto) 0.7 %; Eosinophils # (auto) 0.31 K/uL (0-0.50); Eosinophils % (auto) 2.9 %; Hematocrit (blood only) 31.8 % (40.1-51.0); Immature Granulocytes # (auto) 0.22 K/uL (0.00-0.02); Lymphocytes # (auto) 1.91 K/uL (1.2-3.4); Lymphocytes % (auto) 17.8 %; Mean Corpuscular Hemoglobin 31.3 pg (25.0-34.0); Mean Corpuscular Hgb Conc 34.6 g/dL (32.0-36.0); Mean Corpuscular Volume 90.6 fL (80.0-100.0); Monocytes # (auto) 0.86 K/uL (0.24-0.82); Neutrophils # (auto) 7.39 K/uL (1.4-6.5); Neutrophils % (auto) 68.6 %; Platelet Count 385 K/uL (130-400); RDW Coefficient of Variation 15.2 % (11.5-14.5); RDW Standard Deviation 49.8 fL (36.4-46.3); Red Blood Count 3.51 M/uL (4.63-6.08); White Blood Count 10.76 K/ul (4.8-10.8)
[2022-02-12] MEDS: LACTATED RINGER'S 1,000 ML IV SCH (06:19)
[2022-02-12 06:22] LABS: Albumin Globulin Ratio 0.6 (0.9-2); Albumin Level 2.3 gm/dl (3.4-5.0); BUN Creatinine Ratio 25.9 (10-20); Bilirubin,Total 0.8 mg/dl (0.2-1.0); Calcium 7.9 mg/dl (8.5-10.1); Creatinine Clr Calc Pharmacy 72.9 ml/min; Est GFR (African American) 97.4 ml/min; Globulin 3.8 gm/dl (2.5-4.0); Magnesium 1.7 mg/dl (1.7-2.4); Potassium 4.3 mmol/L (3.5-5.1); Total Protein 6.1 gm/dl (6.0-8.3)
[2022-02-12] MEDS: METOPROLOL SUCC 50MG EXT REL TAB PO SCH (08:04)
[2022-02-12] MEDS: lisinopril 40 MG TAB PO SCH (08:04)
[2022-02-12] MEDS: PANTOprazole 40 MG TAB PO SCH (08:04)
[2022-02-12] MEDS: MULTIVITAMIN TAB PO SCH (08:04)
[2022-02-12] MEDS: METHYLCELLULOSE POWDER 454 GM JAR PO SCH (08:04)
--- NOTE | 2022-02-12 08:04 | Electrocardiogram Report ---
Test Reason : Blood Pressure : / mmHG Vent. Rate : 078 BPM Atrial Rate : 078 BPM P-R Int : 140 ms QRS Dur : 090 ms QT Int : 408 ms P-R-T Axes : 034 027 035 degrees QTc Int : 465 ms Normal sinus rhythm Normal ECG When compared with ECG of 27-DEC-2021 00:40, No significant change Confirmed by Kosta Land ([id number]) on 02/12/2022 8:03:31 AM Referred By: REFERRED SELF Confirmed By:Kosta Land
[2022-02-12 08:42] LABS: C Reactive Protein 19.39 mg/dl (0-0.5)
[2022-02-12] MEDS ORDERED: AMPICILLIN/SULBACTAM SOD 3,000 MG in 0.9 % SODIUM CHLORIDE 100 ML IV SCH (08:45)
[2022-02-12] MEDS ORDERED: ASPIRIN 325 MG ECTAB PO SCH (09:00)
[2022-02-12] MEDS ORDERED: METHYLCELLULOSE 500 MG TAB PO SCH (09:00)
--- NOTE | 2022-02-12 09:30 | Pulmonary Consultation ---
Date of Consultation February 12, 2022 Assessment & Plan (1) Pneumonitis: (2) Acute hypoxemic respiratory failure: (3) Glioblastoma: Plan 76-year-old male with recently diagnosed glioblastoma status post resection presenting to the hospital with hypoxemic respiratory failure. CT chest consistent with pneumonitis. Given that he was on a prolonged course of dexamethasone for about a month, we will start the patient on empiric PJP treatment including IV Solu-Medrol 40 mg twice daily and Bactrim. I called the pharmacist to help assist with the Bactrim dosing and I will place the appropriate orders. We will send a urine Legionella. May need to consider bronchoscopy early next week if he does not improve to evaluate for other findings such as alveolar hemorrhage. We will send a beta D glucan. We will also order sputum PJP PCR. Will continue to follow along with you. Thank you for the consult. History of Present Illness Attending Physician: Romain Whitmore MD History of Present Illness 76-year-old male with history of glioblastoma status post resection who presented to the ER due to bilateral leg cramping and was found to have hypoxem ia with saturations of 75% in his PCP office. He was sent to the ER and required upwards of 6 L of oxygen. He has occasional dry cough. He has noticed some increasing lethargy over the last few days. ESR and CRP very elevated. Bio fire testing was unremarkable. Transaminitis seen on labs. CT chest with diffuse groundglass opacities. Patient was started on antibiotics by the primary team. Patient notes that he has been feeling short of breath for the past 2 weeks. He describes that he has not yet started chemotherapy or radiation. He was supposed to start this midweek. He notes that he was on dexamethasone for approximately a month to help reduce the swelling in his brain. He denies any recent tobacco abuse. He quit smoking in the . He denies any hunting. No recent travel. His sisters came back from [place]. But he denies sick contacts. Allergies Allergy/AdvReac Type Severity Reaction Status Date / Time No Known Allergies Allergy Unknown Verified 02/11/22 17:38 Home Medications Medication Instructions Recorded Confirmed Type nitroglycerin 0.4 mg sublingual 0.4 mg sublingual Q5M PRN Chest 01/27/20 02/11/22 History tablet Pain atorvastatin 40 mg tablet 40 mg PO QAM #90 tabs 08/31/21 02/11/22 Rx aspirin 325 mg tablet 325 mg PO QAM 12/27/21 02/11/22 History lisinopril 40 mg tablet 40 mg PO QAM #90 tabs 12/29/21 02/11/22 Rx dutasteride 0.5 mg capsule 0.5 mg PO QAM #90 caps 01/07/22 02/11/22 Rx (Avodart) metoprolol succinate 50 mg 50 mg PO QAM #90 tabs 01/11/22 02/11/22 Rx tablet,extended release 24 hr multivitamin (Multiple Vitamins 1 tab PO DAILY 02/02/22 02/11/22 History tablet) omeprazole 20 mg capsule,delayed 20 mg PO DAILY 02/02/22 02/11/22 History release acetaminophen 500 mg tablet 500 - 1,000 mg PO DIRECTED PRN 02/11/22 02/11/22 History (Tylenol Extra Strength) Pain qlgic-[id number] 450 unit 450 unit PO BID PRN Gi Upset 02/11/22 02/11/22 History disintegrating tablet (Beano) methylcellulose (laxative) 2 g PO DAILY 02/11/22 02/11/22 History (Citrucel Sugar Free oral powder) ondansetron 8 mg disintegrating 8 mg PO Q12H PRN TAKE PRIOR TO 02/11/22 02/11/22 History tablet CHEMO MED temozolomide 140 mg capsule 140 mg PO DAILY 02/11/22 02/11/22 History Patient History Medical History (Updated 02/12/22 @ 09:27 by Byron Hoffmann MD) Atherosclerotic heart disease of [place] coronary artery without angina pectoris Bilateral hydronephrosis BPH (benign prostatic hyperplasia) BPH with obstruction/lower urinary tract symptoms CAD (coronary artery disease) inferior wall [place] 1989 s/p PTCA of the CX artery Carotid stenosis, left hx surgery for Chest pain Diverticulosis Foreign body in ear GERD (gastroesophageal reflux disease) Glioblastoma 01/04/[address] Jordan History of COVID-21 MAR 2020 Hyperlipidemia Hypertension Myocardial Infarction 1989 Nasal congestion Paresthesia of left arm and leg Pneumonitis Post-void dribbling Prostate nodule Pure hypercholesterolemia Urinary frequency Urinary tract infection, acute Surgical History History of cataract surgery Bilateral History of colonoscopy History of craniotomy 01/04/22 History of cystoscopy History of left-sided carotid endarterectomy History of tooth extraction Hx of angioplasty 1989- no stents Family History Father , 86yo Lung cancer Myocardial infarction Hypertension Mother , 92yo Pacemaker Hypertension Sister H/O carotid endarterectomy Stroke following surgery; Hypertension Dyslipidemia Sister Dyslipidemia Hypertension Melanoma Sister Hypertension Denies family history of Ovarian cancer Prostate cancer Breast cancer Colorectal cancer Social History Smoking Status: Former smoker Tobacco Type: Cigarettes packs per day: 0.5; Second Hand Exposure: No; Do You Dip or Chew Tobacco: No; Tobacco Cessation Education Requested by Patient: No Hx Alcohol Use: No Hx Substance Use: No Preferred Language: Luxembourgish Communication Ability: Effective Visual Impairment: No Limitations Hearing Ability: Use of Hearing Aid Java Sy[employer] Developer Required: No Beliefs That Will Affect Care: None marital status: marital status details: Amrita Current Living Situation: Spouse current occupational status: retired How many Children do You have: 0 Other Information That Helps Us Care for You: No Feels Safe at Home: Yes Safety Concerns: Feels Safe At This Time Childhood Exposure to Second-Hand Smoke: Yes (father ) Diet Comment: tries to eat healthy caffeine: Yes (3 cups daily ) during the past year weight has: remained stable Dental Care, Regularly: Yes Physical Activity Frequency: Daily Seatbelt Use: always Sunscreen Use: No Assistive Devices: Cane, Denture - Upper, Denture - Lower, Glasses and Oxygen - Continuous Review of Systems Review of Systems: All systems reviewed & are unremarkable except as noted in HPI & below Physical Exam Physical Exam: Constitutional: Patient appears to be of their stated age. Patient is in no apparent distress. Patient is well-developed. Eyes: Pupils are equal round and reactive to light. Conjunctivae are normal. Anicteric sclera. Ears nose, mouth and throat: Mallampati class 2. Normal posterior oropharynx. Uvula is midline. Neck: Trachea is midline. Visual inspection is normal. Respiratory: Mild crackles diffusely. No wheezes. Mild tachypnea. Cardiovascular: Regular rate and rhythm. No murmurs. No edema. Gastrointestinal: Normal bowel sounds, soft, nontender and nondistended. No hepatosplenomegaly noted. Musculoskeletal: No cyanosis. Patient is able to move all extremities. Strength is 5 out of 5 in the upper and lower extremities. Skin: No rashes, warm dry and intact. Neurologic: No obvious focal neurological deficits seen. Psychiatric: Alert and oriented x3 with a euthymic affect. Results & Data Results & Data ([facility]) Vital Signs (Past 12 Hours) Vital Signs Temp Pulse Pulse Resp BP Pulse Ox O2 Del Method 02/12/22 07:15 84 02/12/22 07:48 36.7 C 95 H 18 147/80 H 92 Nasal Cannula 02/12/22 07:38 90 Nasal Cannula 02/12/22 07:38 Nasal Cannula 02/12/22 02:55 36.5 C 97 H 18 130/78 92 Nasal Cannula 02/11/22 23:52 86 02/11/22 22:20 88 02/11/22 23:02 Nasal Cannula 02/11/22 22:47 36.5 C 18 134/77 93 Nasal Cannula 02/11/22 22:32 36.5 C 90 18 134/77 90 Nasal Cannula O2 Flow Rate 02/12/22 07:15 02/12/22 07:48 7 02/12/22 07:38 7 02/12/22 07:38 7 02/12/22 02:55 7 02/11/22 23:52 02/11/22 22:20 02/11/22 23:02 7 02/11/22 22:47 7 02/11/22 22:32 7 PG Care Time/CCT Total # of Minutes Spent Total Time Spent with Patient: Total time spent is greater than 50% in coordination of care (as documented) at patient's floor/unit and/or counseling patient: Coding Level of Care Code 95445 Initial Inpt Care Lvl 3 Diagnoses Pneumonitis J18.9 Acute hypoxemic respiratory failure J96.01 Glioblastoma C71.9
[2022-02-12] MEDS: SULFA/TRIMETH 80/16MG/ML 320 MG in DEXTROSE 5% 500 ML IV SCH ×3 (10:21→22:38)
--- NOTE | 2022-02-12 16:27 | Hospitalist Progress Note ---
Date of Service February 12, 2022 Assessment & Plan (1) Pneumonia: Plan: Significant CRP, ESR with extensive groundglass opacities favors nonbacterial pneumonia. Biofire PCR being negative makes viral pneumonia less likely. Not yet started chemotherapy and no other medications to suspect iatrogenic pneumonitis. Therefore pulmonology consulted; discussed with Dr. Hoffmann and agree with empiric treatment for PJP given prior steroid use. Rx Bactrim + solu-medrol. Given one dose of Unasyn but since we are starting Bactirm for PJP and typical bacterial infections significantly unlikely will d/c further doses. Continue treatment for atypical pneumonia with azithromycin. Blood culture x1 pending Sputum culture pending (2) Splenic infarction: Plan: Follow up blood culture for septic emboli but given low suspicion of this will start full dose anticoagulation. Discussed with Dr. Bernal and will start heparin IV in case of need for bronchoscopy. (3) Glioblastoma: Plan: - S/p resection at [facility] [place]. - Plan for chemo with radiation daily x 6 weeks, first session scheduled for next Friday 02/16 (4) Hypertension: Plan: - Continue lisinopril and metoprolol. (5) GERD (gastroesophageal reflux disease): Plan: - Continue PPI. (6) CAD (coronary artery disease): Plan: - [place] in 1989. - Continue aspirin, statin, lisinopril, metoprolol with nitro as needed. (7) Transaminitis: Plan: - AST 68, ALT 54, alk phos 209, all acutely elevated. - Improving. Suspect secondary to recent fluconazole. (8) Urinary retention: Plan: Longstanding urine retention which improved s/p TURP. 534ml PVR today. Would allow patient up to 700ml given this is a chronic issue without recurrent UTIs. Start tamsulosin 0.4mg PO HS and will continue his usual Avodart when he is able to have someone bring it in. Plan - Admit to med telemetry. - SCDs and Lovenox for VTE PPx. - Full code. Admission and Anticipated Discharge Date Admission Date: February 11, 2022 Subjective Cough, shortness of breath and fatigue appear to follow the timeline of postoperative glioblastoma and starting steroids. During this time he is also getting terrible mouth sores with dysphagia and odynophagia which was eventually diagnosed with oral thrush. This was treated with oral fluconazole for 7 days starting February 03. He reports significant improvement in his symptoms after treatment and his symptoms do not return from this. However his productive cough, shortness of breath and fatigue if not improved but not significantly worse after starting fluconazole. He denies any fevers, chills. He has not started any of his chemotherapy which she is due to start next week. Regarding the splenic infarcts he has no abdominal pain. No pulmonary emboli on CT angiogram of his chest. Review of Systems Review of Systems: All systems reviewed & are unremarkable except as noted in Subjective Physical Exam Constitutional: WD/WN, vitals as above Eyes: + anicteric sclerae; normal pupil size ENMT: Mouth: no oropharynx abnormality and no oral mucosal abnormality Neck: trachea midline, no thyromegaly Respiratory: normal respiratory effort; no respiratory distress Auscultation: + crackles (Diffuse very mild); breath sounds present, no diminished lung sounds and no wheezes Cardiovascular: RRR, no murmur, no edema Gastrointestinal (Abdomen): normal bowel sounds, soft, nontender, no hepatosplenomegaly Musculoskeletal: no cyanosis or clubbing, extremities motor strength 5/5 Skin: no rashes, warm and dry Neurologic: moves all extremities and awake; not confused Psychiatric: A+Ox3, euthymic affect Genitourinary: no CVA tenderness Results & Data Results & Data ([facility]) Vital Signs (Past 12 Hours) Vital Signs Temp Pulse Pulse Resp BP Pulse Ox O2 Del Method 02/12/22 15:36 36.8 C 86 16 127/81 92 Nasal Cannula 02/12/22 15:00 82 02/12/22 13:29 91 Nasal Cannula 02/12/22 11:12 36.4 C L 78 18 155/80 H 93 Nasal Cannula 02/12/22 07:15 84 02/12/22 07:48 36.7 C 95 H 18 147/80 H 92 Nasal Cannula 02/12/22 07:38 90 Nasal Cannula 02/12/22 07:38 Nasal Cannula O2 Flow Rate 02/12/22 15:36 6 02/12/22 15:00 02/12/22 13:29 7 02/12/22 11:12 7 02/12/22 07:15 02/12/22 07:48 7 02/12/22 07:38 7 02/12/22 07:38 7 PG Care Time/CCT Total # of Minutes Spent Total Time Spent with Patient: Total time spent is greater than 50% in coordination of care (as documented) at patient's floor/unit and/or counseling patient: Coding Level of Care Code 60897 Subseq Hosp Care Lvl 3 Diagnoses Pneumonia J18.9 Splenic infarction D73.5 Glioblastoma C71.9 Hypertension I10 GERD (gastroesophageal reflux disease) K21.9 Esophagitis presence: without esophagitis CAD (coronary artery disease) I25.10 Transaminitis R74.01 Urinary retention R33.9 (1) GERD (gastroesophageal reflux disease) Esophagitis presence: without esophagitis Qualified Code(s): K21.9 - Gastro- esophageal reflux disease without esophagitis
[2022-02-12] MEDS ORDERED: Heparin IV Adult Wt-Based Standard *NO* Bolus Protocol IV ONE (17:54)
[2022-02-12] MEDS ORDERED: HEPARIN SODIUM/DEXTROSE 25,000 UNITS/500 ML BAG IV SCH (18:15)
[2022-02-12] MEDS: AZITHROMYCIN 500 MG in DEXTROSE 5% 250 ML IV SCH (18:26)
[2022-02-12 18:35] LABS: Partial Thromboplastin Ratio 1.3; Partial Thromboplastin Time 34.7 Seconds (21.0-31.0)
[2022-02-12] MEDS: methylPREDNISolone 40 MG in SYRINGE 0 ML IV SCH (20:16)
[2022-02-12] MEDS: TAMSULOSIN HCL 0.4 MG CAP PO SCH (20:16)
[2022-02-13] MEDS: SULFA/TRIMETH 80/16MG/ML 320 MG in DEXTROSE 5% 500 ML IV SCH ×4 (04:06→23:19)
[2022-02-13 06:18] LABS: Hematocrit (blood only) 32.6 % (40.1-51.0); Hemoglobin 11.1 g/dl (14.0-18.0); Mean Corpuscular Volume 91.1 fL (80.0-100.0); Mean Platelet Volume 9.6 fL (9.4-12.4); Platelet Count 408 K/uL (130-400); RDW Coefficient of Variation 15.2 % (11.5-14.5); Red Blood Count 3.58 M/uL (4.63-6.08); White Blood Count 9.11 K/ul (4.8-10.8)
[2022-02-13 06:56] LABS: Albumin Globulin Ratio 0.6 (0.9-2); Albumin Level 2.4 gm/dl (3.4-5.0); BUN Creatinine Ratio 17.1 (10-20); Bilirubin,Total 0.5 mg/dl (0.2-1.0); Creatinine Clr Calc Pharmacy 75.7 ml/min; Est GFR (African American) 98.9 ml/min; Est GFR (Non-African American) 85.3 ml/min; Globulin 4.1 gm/dl (2.5-4.0); Total Protein 6.5 gm/dl (6.0-8.3)
[2022-02-13 07:01] LABS: Basophils # (auto) 0.03 K/uL (0-0.2); Basophils % (auto) 0.3 %; Echinocytes 1+; Immature Granulocytes # (auto) 0.17 K/uL (0.00-0.02); Immature Granulocytes % (auto) 1.9 %; Lymphocytes # (auto) 1.16 K/uL (1.2-3.4); Lymphocytes % (auto) 12.7 %; Monocytes # (auto) 0.13 K/uL (0.24-0.82); Monocytes % (auto) 1.4 %; Neutrophils # (auto) 7.62 K/uL (1.4-6.5); Neutrophils % (auto) 83.7 %; Polychromasia 1+
[2022-02-13] MEDS: METOPROLOL SUCC 50MG EXT REL TAB PO SCH (08:23)
[2022-02-13] MEDS: MULTIVITAMIN TAB PO SCH (08:23)
[2022-02-13] MEDS: lisinopril 40 MG TAB PO SCH (08:23)
[2022-02-13] MEDS: ASPIRIN 81 MG ECTAB PO SCH (08:23)
[2022-02-13] MEDS: methylPREDNISolone 40 MG in SYRINGE 0 ML IV SCH (08:24)
[2022-02-13] MEDS: PANTOprazole 40 MG TAB PO SCH (08:24)
[2022-02-13] MEDS: METHYLCELLULOSE POWDER 454 GM JAR PO SCH (08:24)
--- NOTE | 2022-02-13 11:01 | XCELERA ---
[id number]
--- NOTE | 2022-02-13 11:32 | Pulmonology Progress Note ---
Date of Service February 13, 2022 Assessment & Plan (1) Pneumonitis: (2) Acute hypoxemic respiratory failure: (3) Glioblastoma: Plan 76-year-old male with recently diagnosed glioblastoma status post resection presenting to the hospital with hypoxemic respiratory failure. CT chest consistent with pneumonitis. Continue Bactrim for PJP treatment. We will transition IV Solu-Medrol to prednisone 40 mg twice daily. Urine Legionella pending. May need to consider bronchoscopy early next week if he does not improve to evaluate for other findings such as alveolar hemorrhage. Although at this point, I think alveolar hemorrhage is very unlikely given the lack of hemoptysis and stable hemoglobin. We will send a beta D glucan. We will also order sputum PJP PCR. Will continue to follow along with you. Thank you for the consult. Admission and Anticipated Discharge Date Admission Date: February 11, 2022 Subjective Patient feels that his shortness of breath has improved. Cough is also improving. Denies any fevers or chills. Able to ambulate a little bit throughout the room, but does become dyspneic. Review of Systems Review of Systems: All systems reviewed & are unremarkable except as noted in HPI & below Physical Exam Physical Exam: Constitutional: Patient appears to be of their stated age. Patient is in no apparent distress. Patient is well-developed. Eyes: Pupils are equal round and reactive to light. Conjunctivae are normal. Anicteric sclera. Ears nose, mouth and throat: Mallampati class 2. Normal posterior oropharynx. Uvula is midline. Neck: Trachea is midline. Visual inspection is normal. Respiratory: Clear to auscultation bilaterally. No increased work of breathing. Cardiovascular: Regular rate and rhythm. No murmurs. No edema. Gastrointestinal: Normal bowel sounds, soft, nontender and nondistended. No hepatosplenomegaly noted. Musculoskeletal: No cyanosis. Patient is able to move all extremities. Strength is 5 out of 5 in the upper and lower extremities. Skin: No rashes, warm dry and intact. Neurologic: No obvious focal neurological deficits seen. Psychiatric: Alert and oriented x3 with a euthymic affect. Results & Data Results & Data ([facility]) Vital Signs (Past 12 Hours) Vital Signs Temp Pulse Pulse Resp BP Pulse Ox O2 Del Method 02/13/22 10:57 36.6 C 67 19 117/70 96 Nasal Cannula 02/13/22 08:31 36.3 C L 96 H 18 140/64 91 Nasal Cannula 02/13/22 07:00 Nasal Cannula 02/13/22 07:03 72 02/13/22 03:49 36.7 C 73 18 129/82 91 Nasal Cannula O2 Flow Rate 02/13/22 10:57 6 02/13/22 08:31 6 02/13/22 07:00 6 02/13/22 07:03 02/13/22 03:49 6 PG Care Time/CCT Total # of Minutes Spent Total Time Spent with Patient: Total time spent is greater than 50% in coordination of care (as documented) at patient's floor/unit and/or counseling patient: Coding Level of Care Code 31525 Subseq Hosp Care Lvl 2 Diagnoses Pneumonitis J18.9 Acute hypoxemic respiratory failure J96.01 Glioblastoma C71.9
[2022-02-13] MEDS ORDERED: Heparin IV Adult Wt-Based Standard *NO* Bolus Protocol IV ONE (14:19)
--- NOTE | 2022-02-13 14:19 | Hospitalist Progress Note ---
Date of Service February 13, 2022 Assessment & Plan (1) Pneumonia: Plan: Significant CRP, ESR with extensive groundglass opacities favors nonbacterial pneumonia. Biofire PCR being negative makes viral pneumonia less likely. Not yet started chemotherapy and no other medications to suspect iatrogenic pneumonitis. Therefore pulmonology consulted; discussed with Dr. Hoffmann and agree with empiric treatment for PJP given prior steroid use. Rx Bactrim + prednisone. Continue treatment for atypical pneumonia with azithromycin. Blood culture x1 negative 48 hours Sputum culture moderate normal leandra Urine legionella Ag, fungitell, PJP PCR pending (2) Pneumocystis jiroveci pneumonia: Plan: As above (3) Acute hypoxemic respiratory failure: Plan: Aim O2 sats > 90%. Now speaking in full sentences which he was not able to do yesterday. Present on Admission?: Yes (4) Splenic infarction: Plan: TTE - no PFO, no thrombus Start heparin IV without bolus for 48 hours. If no alveolar hemorrhage and oxygen requirement improving can switch to DOAC (5) Glioblastoma: Plan: - S/p resection at [facility] [place]. - Plan for chemo with radiation daily x 6 weeks, first session scheduled for next Friday 02/16 - will discuss with radiation tomorrow if this can still go ahead. (6) Hypertension: Plan: - Continue lisinopril and metoprolol. (7) GERD (gastroesophageal reflux disease): Plan: - Continue PPI. (8) CAD (coronary artery disease): Plan: - [place] in 1989. - Continue aspirin (reduce from 324 -> 81 while on anticoagulation), statin, lisinopril, metoprolol with nitro as needed. (9) Transaminitis: Plan: - AST 68, ALT 54, alk phos 209, all acutely elevated. - Improving. Suspect secondary to recent fluconazole. (10) Urinary retention: Plan: Longstanding urine retention which improved s/p TURP. 534ml PVR today. Would allow patient up to 700ml given this is a chronic issue without recurrent UTIs. Start tamsulosin 0.4mg PO HS and will continue his usual Avodart when he is able to have someone bring it in. Plan - Admit to med telemetry. - SCDs and Lovenox for VTE PPx. - Full code. Admission and Anticipated Discharge Date Admission Date: February 11, 2022 Subjective Shortness of breath on exertion improving. Speaking in much more full sentences today noticed by his . No chest pain. Producing less phlegm. No hemoptysis. No mouth sores Regarding splenic infarcts - no abdominal pain Review of Systems Review of Systems: All systems reviewed & are unremarkable except as noted in Subjective Physical Exam Constitutional: WD/WN, vitals as above Eyes: + anicteric sclerae; normal pupil size ENMT: Mouth: no oropharynx abnormality and no oral mucosal abnormality Neck: trachea midline, no thyromegaly Respiratory: normal respiratory effort; no respiratory distress Auscultation: + crackles (Diffuse very mild, improved from yesterday); breath sounds present, no diminished lung sounds and no wheezes Cardiovascular: RRR, no murmur, no edema Gastrointestinal (Abdomen): normal bowel sounds, soft, nontender, no hepatosplenomegaly Musculoskeletal: no cyanosis or clubbing, extremities motor strength 5/5 Skin: no rashes, warm and dry Neurologic: moves all extremities and awake; not confused Psychiatric: A+Ox3, euthymic affect Genitourinary: no CVA tenderness Results & Data Results & Data ([facility]) Vital Signs (Past 12 Hours) Vital Signs Temp Pulse Pulse Resp BP Pulse Ox O2 Del Method 02/13/22 10:57 36.6 C 67 19 117/70 96 Nasal Cannula 02/13/22 08:31 36.3 C L 96 H 18 140/64 91 Nasal Cannula 02/13/22 07:00 Nasal Cannula 02/13/22 07:03 72 02/13/22 03:49 36.7 C 73 18 129/82 91 Nasal Cannula O2 Flow Rate 02/13/22 10:57 6 02/13/22 08:31 6 02/13/22 07:00 6 02/13/22 07:03 02/13/22 03:49 6 PG Care Time/CCT Total # of Minutes Spent Total Time Spent with Patient: Total time spent is greater than 50% in coordination of care (as documented) at patient's floor/unit and/or counseling patient: Coding Level of Care Code 10028 Subseq Hosp Care Lvl 2 Diagnoses Pneumonia J18.9 Pneumocystis jiroveci pneumonia B59 Acute hypoxemic respiratory failure J96.01 Splenic infarction D73.5 Glioblastoma C71.9 Hypertension I10 GERD (gastroesophageal reflux disease) K21.9 Esophagitis presence: without esophagitis CAD (coronary artery disease) I25.10 Transaminitis R74.01 Urinary retention R33.9 (1) GERD (gastroesophageal reflux disease) Esophagitis presence: without esophagitis Qualified Code(s): K21.9 - Gastro- esophageal reflux disease without esophagitis
[2022-02-13] MEDS: HEPARIN SODIUM/DEXTROSE 25,000 UNITS/500 ML BAG IV SCH (15:01)
[2022-02-13 15:21] LABS: Partial Thromboplastin Ratio 1.2; Partial Thromboplastin Time 33.3 Seconds (21.0-31.0)
[2022-02-13] MEDS: AZITHROMYCIN 500 MG in DEXTROSE 5% 250 ML IV SCH (18:41)
[2022-02-13] MEDS: predniSONE 20 MG TAB PO SCH (21:41)
[2022-02-13 21:48] LABS: Partial Thromboplastin Ratio 2.4
[2022-02-13 21:53] LABS: Partial Thromboplastin Time 64.9 Seconds (21.0-31.0)
[2022-02-13] MEDS: TAMSULOSIN HCL 0.4 MG CAP PO SCH (23:20)
[2022-02-14] MEDS: SULFA/TRIMETH 80/16MG/ML 320 MG in DEXTROSE 5% 500 ML IV SCH ×4 (04:56→22:55)
[2022-02-14 07:58] LABS: Hematocrit (blood only) 33.5 % (40.1-51.0); Hemoglobin 11.4 g/dl (14.0-18.0); Mean Corpuscular Hemoglobin 31.6 pg (25.0-34.0); Mean Corpuscular Volume 92.8 fL (80.0-100.0); Mean Platelet Volume 10.2 fL (9.4-12.4); Platelet Count 510 K/uL (130-400); RDW Coefficient of Variation 15.3 % (11.5-14.5); RDW Standard Deviation 50.4 fL (36.4-46.3); Red Blood Count 3.61 M/uL (4.63-6.08); White Blood Count 27.36 K/ul (4.8-10.8)
[2022-02-14 08:25] LABS: Basophils # (auto) 0.04 K/uL (0-0.2); Basophils % (auto) 0.1 %; Echinocytes 2+; Immature Granulocytes # (auto) 0.45 K/uL (0.00-0.02); Immature Granulocytes % (auto) 1.6 %; Lymphocytes # (auto) 2.49 K/uL (1.2-3.4); Lymphocytes % (auto) 9.1 %; Monocytes # (auto) 0.74 K/uL (0.24-0.82); Monocytes % (auto) 2.7 %; Neutrophils # (auto) 23.64 K/uL (1.4-6.5); Neutrophils % (auto) 86.5 %; Polychromasia 1+
[2022-02-14] MEDS: ASPIRIN 81 MG ECTAB PO SCH (08:29)
[2022-02-14 08:30] LABS: Albumin Globulin Ratio 0.6 (0.9-2); Albumin Level 2.5 gm/dl (3.4-5.0); BUN Creatinine Ratio 17.2 (10-20); Bilirubin,Total 0.4 mg/dl (0.2-1.0); Calcium 8.3 mg/dl (8.5-10.1); Creatinine Clr Calc Pharmacy 66.1 ml/min; Est GFR (African American) 91.5 ml/min; Est GFR (Non-African American) 78.9 ml/min; Globulin 4.4 gm/dl (2.5-4.0); Potassium 4.5 mmol/L (3.5-5.1); Total Protein 6.9 gm/dl (6.0-8.3)
[2022-02-14] MEDS: METHYLCELLULOSE POWDER 454 GM JAR PO SCH (08:30)
[2022-02-14] MEDS: predniSONE 20 MG TAB PO SCH ×2 (08:30→20:22)
[2022-02-14] MEDS: lisinopril 40 MG TAB PO SCH (08:30)
[2022-02-14] MEDS: METOPROLOL SUCC 50MG EXT REL TAB PO SCH (08:30)
[2022-02-14] MEDS: PANTOprazole 40 MG TAB PO SCH (08:30)
[2022-02-14] MEDS: MULTIVITAMIN TAB PO SCH (08:30)
[2022-02-14] MEDS: DUTASTERIDE 0.5 MG PO SCH (08:30)
[2022-02-14 08:37] LABS: Partial Thromboplastin Time 110.7 Seconds (21.0-31.0)
--- NOTE | 2022-02-14 09:13 | Pulmonology Progress Note ---
Date of Service February 14, 2022 Assessment & Plan (1) Pneumonitis: (2) Acute hypoxemic respiratory failure: (3) Glioblastoma: (4) Abnormal chest CT: (5) Ex-smoker: Plan 76-year-old male with recently diagnosed glioblastoma status post resection presenting to the hospital with hypoxemic respiratory failure. CT chest consistent with pneumonitis. -- Acute hypoxic respiratory failure Patient diffuse groundglass opacities appreciated bilaterally Infections like PJP can give similar finding especially given that the patient was on high-dose dexamethasone for almost a month which was gradually being tapered off Alveolar hemorrhage can present in similar way Respiratory bio fire negative 02/11/2022 Beta D glucan and urine Legionella has been ordered 2D echo 02/11/2022: EF 65-70%, grade 1 diastolic dysfunction, mild concentric LVH --Ex-smoker Quit in 1989 Plan: Continue with empiric treatment for PJP right now. Continue with 5 days of azithromycin for atypical coverage especially mycoplasma although rapid bio fire was negative for mycoplasma. We will plan to do bronchoscopy with BAL tomorrow N.p.o. postmidnight. Hold heparin drip at 4 AM 02/15/2022 Case was discussed with RN who was at bedside Please note the above document was generated using voice recognition software. It may contain grammatical, syntax or spelling errors.Any formal questions or concerns about the content, text or information contained within the body of this dictation should be directly addressed to the provider for clarification. Please note the above document was generated using voice recognition software. It may contain grammatical, syntax or spelling errors.Any formal questions or concerns about the content, text or information contained within the body of this dictation should be directly addressed to the provider for clarification. Admission and Anticipated Discharge Date Admission Date: February 11, 2022 Subjective Patient seen and examined at bedside. Case was discussed with outgoing cell changer No adverse events overnight. Patient was not in any acute distress He was saturating 93% on 5 L nasal cannula. I was able to go down to 4 L and he was still maintaining saturation around 92% Denies any chest pain. Overall he says that he is feeling better. Is coughing up bringing up clear phlegm. No hemoptysis No nausea or vomiting Review of Systems Review of Systems: All systems reviewed & are unremarkable except as noted in Subjective Physical Exam Physical Exam: Constitutional: No acute distress HEENT: EOMI, PERRLA Respiratory system: Decreased air entry bilaterally, no wheeze, rhonchi, positive crackles appreciated bilaterally lower lobes CVS: S1-S2 positive, no murmurs or gallops Abdomen: Soft, nontender, nondistended, positive bowel sounds x4, obese Extremities: +2 pulses bilaterally radialis/ dorsalis pedis, no cyanosis, no edema Neuro: Awake alert oriented x3 Psych: Normal mood and affect G/U: No Quiros Skin: no rashes, warm and dry Lymphatic: no cervical or axillary lymphadenopathy Results & Data Results & Data ([facility]) Vital Signs (Past 12 Hours) Vital Signs Temp Pulse Pulse Resp BP Pulse Ox O2 Del Method 02/14/22 07:00 92 Nasal Cannula 02/14/22 07:40 36.4 C L 82 18 116/70 90 Nasal Cannula 02/14/22 07:10 84 02/14/22 04:00 36.6 C 76 18 122/67 93 Nasal Cannula 02/14/22 03:13 Nasal Cannula 02/13/22 22:22 95 H 02/14/22 00:00 36.6 C 74 18 116/64 91 Nasal Cannula O2 Flow Rate 02/14/22 07:00 6 02/14/22 07:40 5 02/14/22 07:10 02/14/22 04:00 6 02/14/22 03:13 6 02/13/22 22:22 02/14/22 00:00 6 Laboratory Results 02/14/22 06:04 02/14/22 06:04 PG Care Time/CCT Total # of Minutes Spent Total Time Spent with Patient: Total time spent is greater than 50% in coordination of care (as documented) at patient's floor/unit and/or counseling patient: [place] [address] Subseq Hosp Care Lvl 3 Patient Type Established Diagnoses Pneumonitis J18.9 Acute hypoxemic respiratory failure J96.01 Glioblastoma C71.[address] R93.89 Ex-smoker Z87.891
[2022-02-14] MEDS: HEPARIN SODIUM/DEXTROSE 25,000 UNITS/500 ML BAG IV SCH ×2 (09:59→11:43)
[2022-02-14 16:24] LABS: Partial Thromboplastin Ratio 2.8
[2022-02-14 16:40] LABS: Partial Thromboplastin Time 77.4 Seconds (21.0-31.0)
[2022-02-14] MEDS: AZITHROMYCIN 500 MG in DEXTROSE 5% 250 ML IV SCH (18:25)
--- NOTE | 2022-02-14 19:27 | Hospitalist Progress Note ---
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 Significant CRP, ESR with extensive groundglass opacities favors nonbacterial pneumonia. Biofire PCR being negative makes viral pneumonia less likely. Not yet started chemotherapy and no other medications to suspect iatrogenic pneumonitis. Possible alveolar hemorrhage but no worse on heparin IV so suspect this is unlikely. Continue treatment for atypical pneumonia with azithromycin (last dose today). Blood culture x1 negative 48 hours. Sputum culture moderate normal leandra. Urine legionella Ag, fungitell, PJP PCR pending. Pulmonology planning on bronchoscopy tomorrow, NPO after midnight. (2) Pneumocystis jiroveci pneumonia: Plan: As above (3) Acute hypoxemic respiratory failure: Plan: Aim O2 sats > 90%. Down to 4LPM O2. (4) Splenic infarction: Plan: TTE - no PFO, no thrombus Continue heparin IV, hold at 4am per pulm for bronchoscopy (5) Glioblastoma: Plan: - S[place] [facility] [place] - Plan for chemo with radiation daily x 6 weeks, first session scheduled for next Friday 02/16 (6) Hypertension: Plan: - Continue lisinopril and metoprolol. (7) GERD (gastroesophageal reflux disease): Plan: - Continue PPI. (8) CAD (coronary artery disease): Plan: - [place] in 1989. - Continue aspirin (reduce from 324 -> 81 while on anticoagulation), statin, lisinopril, metoprolol with nitro as needed. (9) Transaminitis: Plan: Continue to monitor as increasing again with leucocytosis (10) Urinary retention: Plan: Longstanding urine retention which improved s/p TURP. Started tamsulosin 0.4mg PO HS and Avodart. Plan - continue on med/tele. - SCDs, heparin IV. - Full code. Admission and Anticipated Discharge Date Admission Date: February 11, 2022 Subjective Continued mild increase improvement in shortness of breath, certainly no worse after starting IV heparin. Coughing up clear phlegm. No fever or chills. No hemoptysis. Review of Systems Review of Systems: All systems reviewed & are unremarkable except as noted in Subjective Physical Exam Constitutional: WD/WN, vitals as above Eyes: + anicteric sclerae; normal pupil size ENMT: external ear and nose normal, oropharynx normal Neck: trachea midline, no thyromegaly Respiratory: normal respiratory effort; no respiratory distress Auscultation: + crackles (fine bases); breath sounds present, no diminished lung sounds, no rales, no rhonchi and no wheezes Cardiovascular: RRR, no murmur, no edema Gastrointestinal (Abdomen): normal bowel sounds, soft, nontender, no hepatosplenomegaly Musculoskeletal: no cyanosis or clubbing, extremities motor strength 5/5 Skin: no rashes, warm and dry Neurologic: moves all extremities and awake; not confused Psychiatric: A+Ox3, euthymic affect Results & Data Results & Data ([facility]) Vital Signs (Past 12 Hours) Vital Signs Temp Pulse Resp BP Pulse Ox O2 Del Method O2 Flow Rate 02/14/22 15:01 36.4 C L 70 20 112/58 L 93 Nasal Cannula 4 02/14/22 10:56 36.5 C 72 18 117/66 92 Nasal Cannula 4 02/14/22 09:00 Nasal Cannula 4 02/14/22 07:40 36.4 C L 82 18 116/70 90 Nasal Cannula 5 PG Care Time/CCT Total # of Minutes Spent Total Time Spent with Patient: Total time spent is greater than 50% in coordination of care (as documented) at patient's floor/unit and/or counseling patient: Coding Level of Care Code 36781 Subseq Hosp Care Lvl 2 Diagnoses Pneumonia J18.9 Pneumocystis jiroveci pneumonia B59 Acute hypoxemic respiratory failure J96.01 Splenic infarction D73.5 Glioblastoma C71.9 Hypertension I10 GERD (gastroesophageal reflux disease) K21.9 Esophagitis presence: without esophagitis CAD (coronary artery disease) I25.10 Transaminitis R74.01 Urinary retention R33.9 (1) GERD (gastroesophageal reflux disease) Esophagitis presence: without esophagitis Qualified Code(s): K21.9 - Gastro- esophageal reflux disease without esophagitis
[2022-02-14] MEDS: TAMSULOSIN HCL 0.4 MG CAP PO SCH (19:42)
[2022-02-15 01:16] LABS: Partial Thromboplastin Time 109.1 Seconds (21.0-31.0)
[2022-02-15] MEDS ORDERED: STOP ORDER [HEPARIN DRIP] ONE (04:00)
[2022-02-15] MEDS: SULFA/TRIMETH 80/16MG/ML 320 MG in DEXTROSE 5% 500 ML IV SCH ×4 (04:56→22:25)
[2022-02-15] MEDS: METOPROLOL SUCC 50MG EXT REL TAB PO SCH (07:14)
[2022-02-15] MEDS: PANTOprazole 40 MG TAB PO SCH (07:14)
[2022-02-15] MEDS: lisinopril 40 MG TAB PO SCH (07:14)
--- NOTE | 2022-02-15 07:40 | Pulmonology Progress Note ---
Date of Service February 15, 2022 Assessment & Plan (1) Pneumonitis: (2) Acute hypoxemic respiratory failure: (3) Glioblastoma: (4) Abnormal chest CT: (5) Ex-smoker: Plan 76-year-old male with recently diagnosed glioblastoma status post resection presenting to the hospital with hypoxemic respiratory failure. CT chest consistent with pneumonitis. -- Acute hypoxic respiratory failure Patient diffuse groundglass opacities appreciated bilaterally Infections like PJP can give similar finding especially given that the patient was on high-dose dexamethasone for almost a month which was gradually being tapered off Alveolar hemorrhage can present in similar way Respiratory bio fire negative 02/11/2022 Beta D glucan and urine Legionella has been ordered 2D echo 02/11/2022: EF 65-70%, grade 1 diastolic dysfunction, mild concentric LVH --Ex-smoker Quit in 1989 Plan: Continue with empiric treatment for PJP right now. Continue with 5 days of azithromycin for atypical coverage especially mycoplasma although rapid bio fire was negative for mycoplasma. For bronchoscopy today Risk and benefit of the procedure explained the patient in depth. He understands and agrees to go ahead with the procedure Please note the above document was generated using voice recognition software. It may contain grammatical, syntax or spelling errors.Any formal questions or concerns about the content, text or information contained within the body of this dictation should be directly addressed to the provider for clarification. Admission and Anticipated Discharge Date Admission Date: February 11, 2022 Subjective Patient seen and examined at bedside. No acute distress, no adverse events overnight Patient was saturating 95% on 4 L nasal cannula. I was able to go down to 3 L Overall he says that he is feeling better Shortness of breath is improved No chest pain, no headache, no nausea, no vomiting Review of Systems Review of Systems: All systems reviewed & are unremarkable except as noted in Subjective Physical Exam Physical Exam: Constitutional: No acute distress HEENT: EOMI, PERRLA Respiratory system: Decreased air entry bilaterally, no wheeze, rhonchi, positive crackles appreciated bilaterally lower lobes CVS: S1-S2 positive, no murmurs or gallops Abdomen: Soft, nontender, nondistended, positive bowel sounds x4, obese Extremities: +2 pulses bilaterally radialis/ dorsalis pedis, no cyanosis, no edema Neuro: Awake alert oriented x3 Psych: Normal mood and affect G/U: No Quiros Skin: no rashes, warm and dry Lymphatic: no cervical or axillary lymphadenopathy Results & Data Results & Data ([facility]) Vital Signs (Past 12 Hours) Vital Signs Temp Pulse Pulse Resp BP Pulse Ox O2 Del Method 02/15/22 07:06 69 02/15/22 02:58 37.1 C 68 20 117/58 L 95 Nasal Cannula 02/14/22 22:14 64 02/14/22 22:51 36.7 C 74 18 122/61 93 Nasal Cannula 02/14/22 21:48 Nasal Cannula O2 Flow Rate 02/15/22 07:06 02/15/22 02:58 4 02/14/22 22:14 02/14/22 22:51 4 02/14/22 21:48 4 Laboratory Results 02/14/22 06:04 02/14/22 06:04 PG Care Time/CCT Total # of Minutes Spent Total Time Spent with Patient: Total time spent is greater than 50% in coordination of care (as documented) at patient's floor/unit and/or counseling patient: Coding Level of Care Code 91823 Subseq Hosp Care Lvl 2 Diagnoses Pneumonitis J18.9 Acute hypoxemic respiratory failure J96.01 Glioblastoma C71.[address] R93.89 Ex-smoker Z87.891
[2022-02-15 07:52] LABS: Hematocrit (blood only) 31.8 % (40.1-51.0); Hemoglobin 11.1 g/dl (14.0-18.0); Mean Corpuscular Hemoglobin 31.4 pg (25.0-34.0); Mean Corpuscular Hgb Conc 34.9 g/dL (32.0-36.0); Mean Corpuscular Volume 89.8 fL (80.0-100.0); Mean Platelet Volume 9.3 fL (9.4-12.4); Platelet Count 502 K/uL (130-400); RDW Standard Deviation 48.8 fL (36.4-46.3); Red Blood Count 3.54 M/uL (4.63-6.08)
[2022-02-15 08:03] LABS: Partial Thromboplastin Ratio 1.3; Partial Thromboplastin Time 35.8 Seconds (21.0-31.0)
[2022-02-15 08:12] LABS: Basophils # (auto) 0.06 K/uL (0-0.2); Basophils % (auto) 0.2 %; Echinocytes 2+; Immature Granulocytes # (auto) 0.52 K/uL (0.00-0.02); Immature Granulocytes % (auto) 1.9 %; Lymphocytes % (auto) 10.7 %; Monocytes # (auto) 1.77 K/uL (0.24-0.82); Monocytes % (auto) 6.6 %; Neutrophils # (auto) 21.75 K/uL (1.4-6.5); Neutrophils % (auto) 80.6 %; Polychromasia 1+
[2022-02-15 08:15] LABS: Albumin Globulin Ratio 0.7 (0.9-2); Albumin Level 2.6 gm/dl (3.4-5.0); Bilirubin,Total 0.4 mg/dl (0.2-1.0); Calcium 8.1 mg/dl (8.5-10.1); Creatinine Clr Calc Pharmacy 61.7 ml/min; Est GFR (African American) 83.8 ml/min; Est GFR (Non-African American) 72.3 ml/min; Potassium 4.5 mmol/L (3.5-5.1); Total Protein 6.6 gm/dl (6.0-8.3)
[2022-02-15] MEDS: DUTASTERIDE 0.5 MG PO SCH ×2 (09:19→14:38)
[2022-02-15] MEDS: predniSONE 20 MG TAB PO SCH ×3 (09:19→20:48)
[2022-02-15] MEDS: MULTIVITAMIN TAB PO SCH ×2 (09:19→14:37)
[2022-02-15] MEDS: ASPIRIN 81 MG ECTAB PO SCH ×2 (09:19→14:37)
[2022-02-15] MEDS: METHYLCELLULOSE POWDER 454 GM JAR PO SCH (09:19)
--- NOTE | 2022-02-15 09:45 | Pre Anesthesia Assessment ---
Date of Service February 15, 2022 Pre Sedation Assessment Vital Signs Temp Pulse Pulse Pulse Resp BP BP 02/15/22 09:52 72 18 129/69 02/15/22 07:47 36.5 C 68 20 144/69 H 02/15/22 07:34 02/15/22 07:06 69 02/15/22 02:58 37.1 C 68 20 117/58 L 02/14/22 22:14 64 02/14/22 22:51 36.7 C 74 18 122/61 02/14/22 21:48 02/14/22 19:23 36.3 C L 84 18 108/63 02/14/22 15:01 36.4 C L 70 20 112/58 L 02/14/22 10:56 36.5 C 72 18 117/66 Pulse Ox O2 Del Method O2 Flow Rate 02/15/22 09:52 100 Oxymask 8 02/15/22 07:47 94 Nasal Cannula 4 02/15/22 07:34 Nasal Cannula 4 02/15/22 07:06 02/15/22 02:58 95 Nasal Cannula 4 02/14/22 22:14 02/14/22 22:51 93 Nasal Cannula 4 02/14/22 21:48 Nasal Cannula 4 02/14/22 19:23 94 Nasal Cannula 4 02/14/22 15:01 93 Nasal Cannula 4 02/14/22 10:56 92 Nasal Cannula 4 Pre-Sedation Airway Assessment Smoking Status: Former smoker Mallampati Class: II ASA: ASA2 Procedure Planning Contraindications for Sedation: none Current Medications Reviewed: Yes Notes The planned sedation has been discussed with the patient. Informed Consent was obtained. I have identified the patient, determined the appropriateness of sedation and have assessed the patient immediately prior to the procedure. All medicine(s) and interventions are by my order.
[2022-02-15] MEDS ORDERED: MIDAZOLAM HCL 5 MG/ML 1 ML VIAL ONE (09:52)
[2022-02-15] MEDS ORDERED: fentaNYL citrate 100 MCG/2 ML VIAL ONE (09:52)
--- NOTE | 2022-02-15 10:26 | Procedure Note ---
Procedure Note: Bronchoscopy Procedure PREOPERATIVE DIAGNOSIS: Bilateral groundglass opacities POSTOPERATIVE DIAGNOSIS: Bilateral diffuse groundglass opacities PROCEDURE PERFORMED: Flexible fiberoptic bronchoscopy with bronchoalveolar lavage and transbronchial biopsies COMPLICATIONS: None. INDICATION: Rule out infection PROCEDURE: After obtaining an informed consent, the patient was brought to the Bronchoscopy Suite. The patient had appropriate oxygen, blood pressure, heart rate, and respiratory rate monitoring applied and monitored continuously throughout the procedure. Supplemental oxygen via nasal cannula as per nursing records was applied to the nasopharynx with adequate saturations achieved. Topical anesthesia with nebulized 1% lidocaine was achieved. Subsequent to this, the patient was premedicated with 3 mg of midazolam and 50 mcg of fentanyl. Upper Airway: The oropharynx and larynx were well visualized and showed dry nasal mucosa with crusted blood. There was normal vocal cord motion without masses or lesions. Additional topical anesthesia with 1% lidocaine was applied to the trachea and angela. The trachea appeared normal.The bronchoscope was then advanced through the angela, which was sharp. The scope was then advanced into the right main stem and each segment, subsegement in the right upper lobe, right middle lobe and right lower lobe were visualized. There were minimal amount of clear secretion which was suctioned out. There were no other findings including evidence of mass, anatomic distortions, or hemorrhage. The bronchoscope was subsequently withdrawn and advanced into the left mainstem. Again, each segment and subsegment was well visualized. No specific m asses or other lesions were identified throughout the tracheobronchial tree on the left. There were minimal amount of secretion which were suctioned out The bronchoscope was then wedged in the right middle lobe lateral segment and bronchoalveolar lavage samples were obtained. 70 ml of saline was instilled and 30 ml of fluid was aspirated back.The bronchoscope was withdrawn and the area was suctioned clear. The bronchoscope was then re-advanced into the right lower lobe anterior followed by lateral segment and multiple transbronchial biopsies were taken. Minimal hemorrhage was identified and suctioned clear without difficulty. Cold saline was utilized to achive adequate hemostasis. The bronchoscope was then withdrawn to the mainstem. The area was suctioned clear. The bronchoscope was then withdrawn. The patient tolerated the procedure well without evidence of desaturation or complications. Bronchoalveolar lavage samples were sent for cell count, Gram stain and bacterial culture, AFB culture and smear, fungal culture and smear and cytology. Transbronchial biopsies were sent for tissue culture (bacteria, AFB and fungal) and pathology. Recommendations: Follow-up cytology and pathology Follow-up chest x-ray Please note the above document was generated using voice recognition software. It may contain grammatical, syntax or spelling errors.Any formal questions or concerns about the content, text or information contained within the body of this dictation should be directly addressed to the provider for clarification. [facility] [place] Procedure Codes (Charges) Pulmonary/Thoracic Procedure 1: Pulmonary and Thoracic: 51143 Dx bronchoscopy/BAL Procedure 2: Pulmonary and Thoracic: 56213 Bronchoscopy w/ transbronchial lung bx Sedation/Anesthesia Procedure 1: Sedation/Anesthesia: 17152 Mod Sedation by the same physician;Init15 Min Child Age 5 & Up
--- NOTE | 2022-02-15 10:28 | Post Anesthesia Assessment ---
Date of Service February 15, 2022 Post Sedation Assessment Vital Signs Temp Pulse Pulse Pulse Resp BP BP 02/15/22 10:15 75 18 115/62 02/15/22 10:14 61 14 106/53 L 02/15/22 10:10 64 14 101/67 02/15/22 10:05 59 L 16 123/56 L 02/15/22 10:00 62 16 104/86 02/15/22 09:52 72 18 129/69 02/15/22 07:47 36.5 C 68 20 144/69 H 02/15/22 07:34 02/15/22 07:06 69 02/15/22 02:58 37.1 C 68 20 117/58 L 02/14/22 22:14 64 02/14/22 22:51 36.7 C 74 18 122/61 02/14/22 21:48 02/14/22 19:23 36.3 C L 84 18 108/63 02/14/22 15:01 36.4 C L 70 20 112/58 L 02/14/22 10:56 36.5 C 72 18 117/66 Pulse Ox O2 Del Method O2 Flow Rate 02/15/22 10:15 93 Oxymask 3 02/15/22 10:14 96 Oxymask 8 02/15/22 10:10 95 Oxymask 8 02/15/22 10:05 96 Oxymask 8 02/15/22 10:00 98 Oxymask 8 02/15/22 09:52 100 Oxymask 8 02/15/22 07:47 94 Nasal Cannula 4 02/15/22 07:34 Nasal Cannula 4 02/15/22 07:06 02/15/22 02:58 95 Nasal Cannula 4 02/14/22 22:14 02/14/22 22:51 93 Nasal Cannula 4 02/14/22 21:48 Nasal Cannula 4 02/14/22 19:23 94 Nasal Cannula 4 02/14/22 15:01 93 Nasal Cannula 4 02/14/22 10:56 92 Nasal Cannula 4 Recovery Score Activity: Moves 4 extremities Respiration: Deep Breath/Cough Circulation: +/-20% PreAnes Value Consciousness: Arouseable (by name) Oxygen Saturation: O2 needed for >90% Post Anesthesia Score: 8 Discharge Sedation Level of Care: Fast Track Phase II Post Sedation Plan On clinical assessment, the patient appears to have tolerated the sedation without complications. Patient is recovering as anticipated. Patient will continue to be monitored by nursing and may be discharged when sedation discharge criteria are met per below protocol. Upon Completions of procedure up to 15 minutes continue every 5 minute vital signs and the P.A.R. score; then discharge to a Phase I or Fast Track to Phase II per the following guidelines: * Discharge Patient to appropriate Phase II area if PAR is 8 or greater or return to pre- procedure baseline. The post - procedure orders will be as directed. * If PAR score is less than 8 or not return to pre-procedure baseline then patient will follow Phase I monitoring till PAR is reached for Phase II. The Phase I may be done in procedure room or may call to secure a Phase I area. * If naloxone or flumazenil are used for reversal, hold in Phase I for continued monitoring from when last reversal dose was given for a minimum of 60 minutes or longer pending the nurse and/or physician discretion of patient condition before discharge to Phase II. Please call the Sedation Physician to re-evaluate and complete post-note for discharge to Phase II area. Do NOT discharge from procedure sedation or Phase 1 until post- sedation evaluation note is complete by procedure /sedation MD Sedation Discharge Instructions to be given to the patient at discharge to home.
--- NOTE | 2022-02-15 10:47 | XRay Report ---
XR chest 1V portable CLINICAL HISTORY: Post bronchoscopy. COMPARISON STUDY: Chest radiograph March 16, 2022. Chest CT February 11, 2022. FINDINGS: There is no pneumothorax post bronchoscopy. No pleural effusion is present. Multifocal airs pace opacities with interstitial thickening are noted. These have slightly improved since chest CT of February 11, 2022. Cardiomediastinal silhouette is stable. IMPRESSION: 1. No pneumothorax post bronchoscopy. 2. Mild improvement in multifocal airspace opacities and interstitial thickening since chest CT of No [id number]. ACT 112: Negative or not required by law. Electronically signed by: Sami Hernandez M.D. 02/15/2022 10:45 AM
[2022-02-15 11:47] LABS: Lymphocyte Body Fluid Man 5 %; Neutrophil Body Fluid Man 14 %
[2022-02-15 11:48] LABS: Eosinophil Body Fluid Man 1 %; Fluid Mono/Macrophage 80 %
[2022-02-15] MEDS ORDERED: Heparin IV Adult Wt-Based Standard *NO* Bolus Protocol IV SCH (18:02)
--- NOTE | 2022-02-15 18:04 | Hospitalist Progress Note ---
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 Significant CRP, ESR with extensive groundglass opacities favors nonbacterial pneumonia. Biofire PCR being negative makes viral pneumonia less likely. Not yet started chemotherapy and no other medications to suspect iatrogenic pneumonitis. Finished treatment this admission for atypical pneumonia with azithromycin. Blood culture x1 negative 48 hours. Sputum culture moderate normal leandra. Bronchial lavage culture pending Urine legionella Ag, fungitell, PJP PCR pending. s/p bronchoscopy 02/15 Appreciate pulmonology management (2) Pneumocystis jiroveci pneumonia: Plan: Continue Bactrim and prednisone per pulmonology recommendations (3) Acute hypoxemic respiratory failure: Plan: Aim O2 sats > 90%. Down to 3LPM O2. 2 step in morning in anticipation of discharge. (4) Splenic infarction: Plan: TTE - no PFO, no thrombus Restart heparin IV (5) Glioblastoma: Plan: - S/p resection at [facility] [place]. - Plan for chemo with radiation daily x 6 weeks, first session scheduled for next tomorrow - discussed with Dr Jimenez and will need to delay chemo and will consult radiation oncology regarding radiation treatment (6) Hypertension: Plan: - Continue lisinopril (will reduce dose given current low nomal BP) and metoprolol. (7) GERD (gastroesophageal reflux disease): Plan: - Continue PPI. (8) CAD (coronary artery disease): Plan: - [place] in 1989. - Continue aspirin (reduce from 324 -> 81 while on anticoagulation), statin, lisinopril, metoprolol with nitro as needed. (9) Transaminitis: Plan: Continue to monitor as increasing again with leucocytosis. Unclear cause at this time. (10) Urinary retention: Plan: Longstanding urine retention which improved s/p TURP. Started tamsulosin 0.4mg PO HS and Avodart. Plan - continue on med/tele. - SCDs, heparin IV. - Full code. Admission and Anticipated Discharge Date Admission Date: February 11, 2022 Subjective Patient seen after bronchoscopy. Reports slow improvement in his shortness of breath. No hemoptysis. No chest pain. No melena, bright red blood in stool or hematuria. Review of Systems Review of Systems: All systems reviewed & are unremarkable except as noted in Subjective Physical Exam Constitutional: WD/WN, vitals as above Eyes: + anicteric sclerae; normal pupil size ENMT: external ear and nose normal, oropharynx normal Neck: trachea midline, no thyromegaly Respiratory: normal respiratory effort; no respiratory distress Auscultation: breath sounds present, no diminished lung sounds, no crackles, no rales, no rhonchi and no wheezes Cardiovascular: RRR, no murmur, no edema Gastrointestinal (Abdomen): normal bowel sounds, soft, nontender, no hepatosplenomegaly Musculoskeletal: no cyanosis or clubbing, extremities motor strength 5/5 Skin: no rashes, warm and dry Neurologic: moves all extremities and awake; not confused Psychiatric: A+Ox3, euthymic affect Results & Data Results & Data ([facility]) Vital Signs (Past 12 Hours) Vital Signs Temp Pulse Pulse Pulse Resp BP BP 02/15/22 15:44 62 02/15/22 15:30 36.4 C L 66 20 115/54 L 02/15/22 13:40 02/15/22 12:00 36.6 C 62 18 112/62 02/15/22 11:30 36.6 C 59 L 18 95/53 L 02/15/22 11:11 66 02/15/22 11:03 36.6 C 68 20 126/73 02/15/22 10:45 68 18 96/67 L 02/15/22 10:30 62 18 110/61 02/15/22 10:15 75 18 115/62 02/15/22 10:14 61 14 106/53 L 02/15/22 10:10 64 14 101/67 02/15/22 10:05 59 L 16 123/56 L 02/15/22 10:00 62 16 104/86 02/15/22 09:52 72 18 129/69 02/15/22 07:47 36.5 C 68 20 144/69 H 02/15/22 07:34 02/15/22 07:06 69 Pulse Ox O2 Del Method O2 Flow Rate 02/15/22 15:44 02/15/22 15:30 96 Nasal Cannula 3 02/15/22 13:40 Oxymask 02/15/22 12:00 94 Nasal Cannula 3 02/15/22 11:30 94 Nasal Cannula 3 02/15/22 11:11 02/15/22 11:03 93 Nasal Cannula 02/15/22 10:45 93 Oxymask 3 02/15/22 10:30 90 Oxymask 3 02/15/22 10:15 93 Oxymask 3 02/15/22 10:14 96 Oxymask 8 02/15/22 10:10 95 Oxymask 8 02/15/22 10:05 96 Oxymask 8 02/15/22 10:00 98 Oxymask 8 02/15/22 09:52 100 Oxymask 8 02/15/22 07:47 94 Nasal Cannula 4 02/15/22 07:34 Nasal Cannula 4 02/15/22 07:06 PG Care Time/CCT Total # of Minutes Spent Total Time Spent with Patient: Total time spent is greater than 50% in coordination of care (as documented) at patient's floor/unit and/or counseling patient: Coding Level of Care Code 11048 Subseq Hosp Care Lvl 2 Diagnoses Pneumonia J18.9 Pneumocystis jiroveci pneumonia B59 Acute hypoxemic respiratory failure J96.01 Splenic infarction D73.5 Glioblastoma C71.9 Hypertension I10 GERD (gastroesophageal reflux disease) K21.9 Esophagitis presence: without esophagitis CAD (coronary artery disease) I25.10 Transaminitis R74.01 Urinary retention R33.9 (1) GERD (gastroesophageal reflux disease) Esophagitis presence: without esophagitis Qualified Code(s): K21.9 - Gastro- esophageal reflux disease without esophagitis
[2022-02-15] MEDS ORDERED: HEPARIN 25000 UNIT/500 ML D5W IV ONE (18:12)
[2022-02-15 18:46] LABS: Partial Thromboplastin Ratio 1.2; Partial Thromboplastin Time 31.9 Seconds (21.0-31.0)
[2022-02-15] MEDS: HEPARIN SODIUM/DEXTROSE 25,000 UNITS/500 ML BAG IV SCH (19:07)
[2022-02-15 19:26] LABS: Fungitell (1-3)-B-D-Glucan >500 pg/mL
[2022-02-15] MEDS: TAMSULOSIN HCL 0.4 MG CAP PO SCH (19:54)
[2022-02-16 01:50] LABS: Partial Thromboplastin Ratio 3.7
[2022-02-16 01:59] LABS: Partial Thromboplastin Time 101.1 Seconds (21.0-31.0)
[2022-02-16] MEDS: SULFA/TRIMETH 80/16MG/ML 320 MG in DEXTROSE 5% 500 ML IV SCH (04:47)
--- NOTE | 2022-02-16 07:52 | XRay Report ---
XR chest 1V portable CLINICAL HISTORY: f/u COMPARISON STUDY: Chest CT February 11, 2022. Chest radiograph February 15, 2022. FINDINGS: No pneumothorax or pleural effusion is present. Cardiomediastinal silhouette is stable. Int erstitial thickening and bilateral airspace opacities are similar to prior exam. IMPRESSION: No significant change in bilateral airspace opacities and interstitial thickening since prior chest radiograph. The findings could reflect pneumonia or pulmonary edema. ACT 112: Negative or not required by law. Electronically signed by: Sami Hernandez M.D. 02/16/2022 7:51 AM
--- NOTE | 2022-02-16 07:53 | Pulmonology Progress Note ---
Date of Service February 16, 2022 Assessment & Plan (1) Pneumonitis: (2) Acute hypoxemic respiratory failure: (3) Glioblastoma: (4) Abnormal chest CT: (5) Ex-smoker: Plan 76-year-old male with recently diagnosed glioblastoma status post resection presenting to the hospital with hypoxemic respiratory failure. CT chest consistent with pneumonitis. -- Acute hypoxic respiratory failure Patient diffuse groundglass opacities appreciated bilaterally Infections like PJP can give similar finding especially given that the patient was on high-dose dexamethasone for almost a month which was gradually being tapered off Alveolar hemorrhage can present in similar way along with acute eosinophilic pneumonia Absolute eosinophil count on presentation was 360 S/p bronchoscopy 02/15/2022. No alveolar hemorrhage appreciated on bronchoscopy BAL mostly monocytic, lymphocytes only 5% (patient was already on steroids) Follow-up cytology Respiratory bio fire negative 02/11/2022 Beta D glucan and urine Legionella has been ordered 2D echo 02/11/2022: EF 65-70%, grade 1 diastolic dysfunction, mild concentric LVH --Ex-smoker Quit in 1989 Plan: Overall patient's clinical status has improved with empiric treatment for PJP Would recommend to continue prednisone 40 mg twice daily of total of 5 days followed by 40 mg daily for 5 days followed by 20 mg daily for 11 days, so total of 21 days Complete the course of Bactrim for total of 21 days. I will change IV Bactrim to p.o. Would recommend the patient to be on pantoprazole while he is getting prednisone Patient will likely need oxygen on discharge. Please note the above document was generated using voice recognition software. It may contain grammatical, syntax or spelling errors.Any formal questions or concerns about the content, text or information contained within the body of this dictation should be directly addressed to the provider for clarification. Admission and Anticipated Discharge Date Admission Date: February 11, 2022 Subjective Patient seen and examined at bedside. No acute distress, no episodes overnight. Overall he says he is feeling much better when it comes to his breathing He was saturating 87% on room air with heart rate of 87 at rest. Has been coughing up clear phlegm. Denies any hemoptysis. Was asking when he can go home. Review of Systems Review of Systems: All systems reviewed & are unremarkable except as noted in Subjective Physical Exam Physical Exam: Constitutional: No acute distress HEENT: EOMI, PERRLA Respiratory system: Decreased air entry bilaterally, no wheeze, rhonchi, positive crackles appreciated bilaterally lower lobes CVS: S1-S2 positive, no murmurs or gallops Abdomen: Soft, nontender, nondistended, positive bowel sounds x4, obese Extremities: +2 pulses bilaterally radialis/ dorsalis pedis, no cyanosis, no edema Neuro: Awake alert oriented x3 Psych: Normal mood and affect G/U: No Quiros Skin: no rashes, warm and dry Lymphatic: no cervical or axillary lymphadenopathy Results & Data Results & Data ([facility]) Vital Signs (Past 12 Hours) Vital Signs Temp Pulse Pulse Resp BP Pulse Ox O2 Del Method 02/16/22 07:21 65 02/15/22 21:00 Nasal Cannula 02/16/22 03:03 36.6 C 79 18 123/56 L 93 Nasal Cannula 02/16/22 02:15 83 02/15/22 22:54 36.5 C 70 18 138/54 L 93 Nasal Cannula O2 Flow Rate 02/16/22 07:21 02/15/22 21:00 4 02/16/22 03:03 2 02/16/22 02:15 02/15/22 22:54 2 Laboratory Results 02/15/22 07:29 02/15/22 07:29 PG Care Time/CCT Total # of Minutes Spent Total Time Spent with Patient: Total time spent is greater than 50% in coordination of care (as documented) at patient's floor/unit and/or counseling patient: Coding Level of Care Code 23321 Subseq Hosp Care Lvl 2 Diagnoses Pneumonitis J18.9 Acute hypoxemic respiratory failure J96.01 Glioblastoma C71.[address] R93.89 Ex-smoker Z87.891
[2022-02-16 08:11] LABS: Basophils # (auto) 0.05 K/uL (0-0.2); Basophils % (auto) 0.2 %; Hematocrit (blood only) 35.5 % (40.1-51.0); Immature Granulocytes # (auto) 0.75 K/uL (0.00-0.02); Immature Granulocytes % (auto) 3.4 %; Lymphocytes # (auto) 3.34 K/uL (1.2-3.4); Lymphocytes % (auto) 14.9 %; Mean Corpuscular Hemoglobin 31.2 pg (25.0-34.0); Mean Corpuscular Hgb Conc 33.8 g/dL (32.0-36.0); Mean Corpuscular Volume 92.2 fL (80.0-100.0); Mean Platelet Volume 9.2 fL (9.4-12.4); Monocytes # (auto) 1.35 K/uL (0.24-0.82); Neutrophils # (auto) 16.86 K/uL (1.4-6.5); Neutrophils % (auto) 75.5 %; Platelet Count 540 K/uL (130-400); RDW Coefficient of Variation 15.2 % (11.5-14.5); RDW Standard Deviation 50.8 fL (36.4-46.3); Red Blood Count 3.85 M/uL (4.63-6.08); White Blood Count 22.35 K/ul (4.8-10.8)
[2022-02-16 08:35] LABS: Partial Thromboplastin Ratio 3.3
[2022-02-16 08:37] LABS: Albumin Globulin Ratio 0.7 (0.9-2); Albumin Level 2.8 gm/dl (3.4-5.0); BUN Creatinine Ratio 16.3 (10-20); Bilirubin,Total 0.4 mg/dl (0.2-1.0); C Reactive Protein 2.92 mg/dl (0-0.5); Calcium 8.4 mg/dl (8.5-10.1); Creatinine Clr Calc Pharmacy 59.8 ml/min; Est GFR (African American) 79.9 ml/min; Est GFR (Non-African American) 68.9 ml/min; Globulin 4.3 gm/dl (2.5-4.0); Potassium 4.5 mmol/L (3.5-5.1); Total Protein 7.1 gm/dl (6.0-8.3)
[2022-02-16 08:50] LABS: Partial Thromboplastin Time 89.9 Seconds (21.0-31.0)
[2022-02-16] MEDS: lisinopril 20 MG TAB PO SCH (08:57)
[2022-02-16] MEDS: METOPROLOL SUCC 50MG EXT REL TAB PO SCH (08:57)
[2022-02-16] MEDS: ASPIRIN 81 MG ECTAB PO SCH (08:57)
[2022-02-16] MEDS: predniSONE 20 MG TAB PO SCH ×2 (08:57→20:11)
[2022-02-16] MEDS: DUTASTERIDE 0.5 MG PO SCH (08:58)
[2022-02-16] MEDS: PANTOprazole 40 MG TAB PO SCH (08:58)
[2022-02-16] MEDS: METHYLCELLULOSE POWDER 454 GM JAR PO SCH (08:58)
--- NOTE | 2022-02-16 09:39 | Radiation OncologyConsultation ---
Date of Consultation February 16, 2022 Assessment & Plan (1) Glioblastoma: Mr. Bose has a history of a GBM surgically excised who was ready to start combined chemoradiation consisting of Temodar and external radiation this week. Unfortunately he developed a pneumonia and was admitted. He is being treated with systemic antibiotics and the plan is for him to be discharged tomorrow. After discussing the planned initiation of his treatment it was decided that we would plan to start him Monday of next week. He has the chemotherapy pills (Temodar) ready to start on this Monday. He has a time to start the radiation and we will proceed accordingly. History of Present Illness Reason for Consultation: To discuss initiation of radiation therapy. Requesting Physician: Romain Whitmore MD Attending Physician: Ruben Sanchez MD History of Present Illness Mr. Bose is a 76-year-old male with a history of remote [place] in 1989 who was found to have a right temporal enhancing lesion. He presented with a relatively short history of dizziness 12/15/2021. Noncontrast CT of the head showed concerns for mass defect in the right temporal region with follow-up MRI recommended. 12/15/2021. MRI of the brain revealed a 2.9 x 2.4 cm right temporal ring- enhancing lesion with local mass-effect and a small amount of surrounding vasogenic edema. The lesion demonstrated avid irregular rim enhancement with a small dural tail. No bony invasion is seen. There is mild mass-effect upon the left lateral ventricle without significant midline shift. A small amount of intralesional susceptibility artifact is seen and could represent hemorrhage. 12/22/2021. The patient was seen at the [facility] outpatient neurosurgery brain tumor clinic for evaluation and recommendations of treatment. They recommended complete metastatic work-up including CT of the chest abdomen and pelvis. They recommended temporal craniotomy and gross tumor resection. 01/03/2022. Patient undergoes CT of the chest abdomen and pelvis with contrast. This showed no primary lesions or evidence of metastatic disease. 01/04/2022. Patient undergoes a right temporal craniotomy by Dr. Jordan. Frozen section confirmed high-grade glioma. Pathology confirmed a glioblastoma WHO grade 4. Staining for mutant IDH 1 (R132H)-wild-type is negative. Some p53 positive tumor cells were seen. Ki-67 index 15%. [facility] [id number]. 01/25/2022. He return for follow-up with Dr. Ruelas (neuro oncology) and was recovering well from his surgery and subsequent dexamethasone taper. They discussed multidisciplinary approach of management which included the completed resection followed by involved field radiation with concurrent low-dose temozolomide followed by adjuvant temozolomide. He reviewed with the patient potential risks and side effects of combined modality therapy and arranged for referral to medical oncology and radiation oncology. 02/02/2022. Patient was seen in radiation oncology for evaluation and discussion of the role of combined chemoradiation as treatment for his newly diagnosed and resected glioblastoma. 02/08/2022. Patient completed his CT simulation. Treatment plans had been completed and he was going to start radiation therapy 02/14/2022. He would also be taking Temodar. 02/11/2022. He had been seen by the primary care provider due to a cough and malaise. He was having some shortness of breath on exertion. He has pulse oximetry was found to be 75% at the office. He was advised emergency room evaluation. He was admitted. Suspected pneumocystis pneumonia. 02/15/2022. Status post bronchoscopy with lavage. Allergies Allergy/AdvReac Type Severity Reaction Status Date / Time No Known Allergies Allergy Unknown Verified 02/11/22 17:38 Home Medications Medication Instructions Recorded Confirmed Type nitroglycerin 0.4 mg sublingual 0.4 mg sublingual Q5M PRN Chest 01/27/20 02/11/22 History tablet Pain atorvastatin 40 mg tablet 40 mg PO QAM #90 tabs 08/31/21 02/11/22 Rx aspirin 325 mg tablet 325 mg PO QAM 12/27/21 02/11/22 History lisinopril 40 mg tablet 40 mg PO QAM #90 tabs 12/29/21 02/11/22 Rx dutasteride 0.5 mg capsule 0.5 mg PO QAM #90 caps 01/07/22 02/11/22 Rx (Avodart) metoprolol succinate 50 mg 50 mg PO QAM #90 tabs 01/11/22 02/11/22 Rx tablet,extended release 24 hr multivitamin (Multiple Vitamins 1 tab PO DAILY 02/02/22 02/11/22 History tablet) omeprazole 20 mg capsule,delayed 20 mg PO DAILY 02/02/22 02/11/22 History release acetaminophen 500 mg tablet 500 - 1,000 mg PO DIRECTED PRN 02/11/22 02/11/22 History (Tylenol Extra Strength) Pain [id number] 450 unit 450 unit PO BID PRN Gi Upset 02/11/22 02/11/22 History disintegrating tablet (Beano) methylcellulose (laxative) 2 g PO DAILY 02/11/22 02/11/22 History (Citrucel Sugar Free oral powder) ondansetron 8 mg disintegrating 8 mg PO Q12H PRN TAKE PRIOR TO 02/11/22 02/11/22 History tablet CHEMO MED temozolomide 140 mg capsule 140 mg PO DAILY 02/11/22 02/11/22 History Patient History Medical History (Updated 02/14/22 @ 09:05 by Steve Duff MD, [facility]) Atherosclerotic heart disease of [place] coronary artery without angina pectoris Bilateral hydronephrosis BPH (benign prostatic hyperplasia) BPH with obstruction/lower urinary tract symptoms CAD (coronary artery disease) inferior wall [place] 1989 s/p PTCA of the CX artery Carotid stenosis, left hx surgery for Chest pain Diverticulosis Foreign body in ear GERD (gastroesophageal reflux disease) Glioblastoma 01/04/[address] Jordan History of COVID-21 MAR 2020 Hyperlipidemia Hypertension Myocardial Infarction 1989 Nasal congestion Paresthesia of left arm and leg Pneumonitis Post-void dribbling Prostate nodule Pure hypercholesterolemia Urinary frequency Urinary tract infection, acute Surgical History History of cataract surgery Bilateral History of colonoscopy History of craniotomy 01/04/22 History of cystoscopy History of left-sided carotid endarterectomy History of tooth extraction Hx of angioplasty 1989- no stents Family History Father , 86yo Lung cancer Myocardial infarction Hypertension Mother , 92yo Pacemaker Hypertension Sister H/O carotid endarterectomy Stroke following surgery; Hypertension Dyslipidemia Sister Dyslipidemia Hypertension Melanoma Sister Hypertension Denies family history of Ovarian cancer Prostate cancer Breast cancer Colorectal cancer Social History Smoking Status: Former smoker Tobacco Type: Cigarettes packs per day: 0.5; Second Hand Exposure: No; Do You Dip or Chew Tobacco: No; Tobacco Cessation Education Requested by Patient: No Hx Alcohol Use: No Hx Substance Use: No Preferred Language: Bolivian Communication Ability: Effective Visual Impairment: No Limitations Hearing Ability: Use of Hearing Aid Senior Administrator Support Required: No Beliefs That Will Affect Care: None marital status: marital status details: Amrita Current Living Situation: Spouse current occupational status: retired How many Children do You have: 0 Other Information That Helps Us Care for You: No Feels Safe at Home: Yes Safety Concerns: Feels Safe At This Time Childhood Exposure to Second-Hand Smoke: Yes (father ) Diet Comment: tries to eat healthy caffeine: Yes (3 cups daily ) during the past year weight has: remained stable Dental Care, Regularly: Yes Physical Activity Frequency: Daily Seatbelt Use: always Sunscreen Use: No Assistive Devices: Cane and Glasses Review of Systems Review of Systems: 13 point review of systems negative other than what is mentioned in the history of present illness. Physical Exam Constitutional: WD/WN, vitals as above Eyes: PERRL, conjunctivae normal, anicteric sclerae ENMT: external ear and nose normal, oropharynx normal Neck: trachea midline, no thyromegaly Respiratory: no respiratory distress Auscultation: + diminished lung sounds Cardiovascular: RRR, no murmur, no edema Gastrointestinal (Abdomen): normal bowel sounds, soft, nontender, no hepatosplenomegaly Skin: no rashes, warm and dry Neurologic: Normal strength and coordination. Psychiatric: A+Ox3, euthymic affect Lymphatic: no cervical lymphadenopathy
[2022-02-16] MEDS: SULFAMETHOXAZOLE/TRIMETHOPRIM DS 800/160MG TAB PO SCH ×3 (12:00→23:38)
--- NOTE | 2022-02-16 14:49 | Hospitalist Progress Note ---
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 He is currently on intravenous Bactrim and also oral azithromycin. Appreciate pulmonary medicine consultation. Repeat chest x-ray done today, February 16, reviewed reveals bilateral infiltrates with no significant change. Not yet started chemotherapy and no other medications to suspect iatrogenic pneumonitis. He underwent bronchoscopy on February 15. (2) Pneumocystis jiroveci pneumonia: Plan: Continue IV Bactrim and po prednisone per pulmonology recommendations (3) Acute hypoxemic respiratory failure: Plan: Currently on oxygen per nasal cannula. Two-step evaluation reveals the need for oxygen at 3 L/min with ambulation post discharge. (4) Splenic infarction: Plan: TTE - no PFO, no thrombus. Currently on heparin IV (5) Glioblastoma: Plan: S/p resection at [facility]. Plan for chemo with radiation daily x 6 weeks, first session after current pulmonary infection resolves. (6) Hypertension: Plan: Continue lisinopril and metoprolol. (7) GERD (gastroesophageal reflux disease): Plan: Continue PPI. (8) CAD (coronary artery disease): Plan: - [place] in 1989. Currently stable. Continue aspirin (reduce from 324 -> 81 while on anticoagulation), statin, lisinopril, metoprolol with nitro as needed. (9) Transaminitis: Plan: Continue to monitor as increasing again with leucocytosis. (10) Urinary retention: Plan: Longstanding urine retention which improved s/p TURP. Contimue tamsulosin 0.4mg PO HS and Avodart. Plan Anticipate eventual discharge to home Admission and Anticipated Discharge Date Admission Date: February 11, 2022 Subjective Alert and oriented. No distress. Chest x-ray today, February 16, continues to show bilateral infiltrates without any significant change. Two-step was completed and he will need 3 L of oxygen per nasal cannula while ambulating. He remains on intravenous Bactrim and oral azithromycin has been added according to pulmonary medicine recommendations. He also remains on the heparin drip. Review of Systems Review of Systems: Constitutional-no fever or chills ENT-no blurred vision, no double vision, no epistaxis, no sore throat Respiratory-no cough, no wheezing, no shortness of breath Cardiac-no palpitations, no chest pain, no syncope GI-no nausea, vomiting, diarrhea, melena, hematochezia -no urinary retention, no urinary incontinence, no dysuria, no hematuria Musculoskeletal-no joint pain, no muscle tenderness Skin-no bruising, no rashes, no pruritus Neuro-no isolated weakness, no paresthesia, no weakness Psych-no depression, no anxiety Physical Exam Physical Exam: General-alert and oriented x3, no fevers, no chills HEENT-head atraumatic and normocephalic, TMs intact bilaterally, pupils equal and reactive to light, extraocular muscles intact Neck-no lymphadenopathy or thyromegaly, trachea midline Chest-scattered bilateral expiratory rhonchi. No dullness to percussion. No wheezing Cardiac-regular rate and rhythm, normal S1 and S2, no murmurs Abdomen-normal bowel sounds, nontender, no hepatosplenomegaly Extremities-no cyanosis, clubbing, or edema Neuro-cranial nerves II through XII intact, motor and sensory function within normal limits, strength symmetrical , no focal deficits Psych-normal affect, normal mood Results & Data Results & Data ([facility]) Vital Signs (Past 12 Hours) Vital Signs Temp Pulse Pulse Pulse Pulse Pulse Pulse 02/16/22 11:13 36.6 C 62 02/16/22 08:00 02/16/22 07:52 97 H 94 H 102 H 87 02/16/22 07:21 65 02/16/22 03:03 36.6 C 79 Pulse Resp Resp Resp Resp Resp Resp 02/16/22 11:13 20 02/16/22 08:00 02/16/22 07:52 84 22 22 20 20 16 02/16/22 07:21 02/16/22 03:03 18 BP Pulse Ox Pulse Ox Pulse Ox Pulse Ox Pulse Ox Pulse Ox 02/16/22 11:13 103/60 96 02/16/22 08:00 02/16/22 07:52 87 L 92 87 L 91 95 02/16/22 07:21 02/16/22 03:03 123/56 L 93 O2 Del Method O2 Flow Rate O2 Flow Rate O2 Flow Rate 02/16/22 11:13 Nasal Cannula 3 02/16/22 08:00 Nasal Cannula 4 02/16/22 07:52 2 3 02/16/22 07:21 02/16/22 03:03 Nasal Cannula 2 Laboratory Results 02/16/22 08:00 02/16/22 08:00 PG Care Time/CCT Total # of Minutes Spent Total Time Spent with Patient: Total time spent is greater than 50% in coordination of care (as documented) at patient's floor/unit and/or counseling patient: Coding Level of Care Code 56517 Subseq Hosp Care Lvl 3 Diagnoses Pneumonia J18.9 Pneumocystis jiroveci pneumonia B59 Acute hypoxemic respiratory failure J96.01 Splenic infarction D73.5 Glioblastoma C71.9 Hypertension I10 GERD (gastroesophageal reflux disease) K21.9 Esophagitis presence: without esophagitis CAD (coronary artery disease) I25.10 Transaminitis R74.01 Urinary retention R33.9 (1) GERD (gastroesophageal reflux disease) Esophagitis presence: without esophagitis Qualified Code(s): K21.9 - Gastro- esophageal reflux disease without esophagitis
[2022-02-16] MEDS ORDERED: AZITHROMYCIN 250 MG TAB PO ONE (16:00)
[2022-02-16 17:08] LABS: Partial Thromboplastin Ratio 2.7
[2022-02-16 17:11] LABS: Partial Thromboplastin Time 73.5 Seconds (21.0-31.0)
[2022-02-16] MEDS: HEPARIN SODIUM/DEXTROSE 25,000 UNITS/500 ML BAG IV SCH (19:05)
[2022-02-16] MEDS: TAMSULOSIN HCL 0.4 MG CAP PO SCH (20:11)
[2022-02-17 00:17] LABS: Partial Thromboplastin Ratio 3.3
[2022-02-17 01:28] LABS: Partial Thromboplastin Time 90.3 Seconds (21.0-31.0)
[2022-02-17] MEDS: SULFAMETHOXAZOLE/TRIMETHOPRIM DS 800/160MG TAB PO SCH ×2 (05:36→12:06)
[2022-02-17 05:44] LABS: Basophils # (auto) 0.07 K/uL (0-0.2); Basophils % (auto) 0.3 %; Hematocrit (blood only) 32.2 % (40.1-51.0); Immature Granulocytes # (auto) 0.88 K/uL (0.00-0.02); Immature Granulocytes % (auto) 4.1 %; Lymphocytes # (auto) 3.17 K/uL (1.2-3.4); Lymphocytes % (auto) 14.9 %; Mean Corpuscular Hemoglobin 31.5 pg (25.0-34.0); Mean Corpuscular Hgb Conc 34.2 g/dL (32.0-36.0); Mean Corpuscular Volume 92.3 fL (80.0-100.0); Mean Platelet Volume 9.3 fL (9.4-12.4); Monocytes # (auto) 1.28 K/uL (0.24-0.82); Neutrophils # (auto) 15.87 K/uL (1.4-6.5); Neutrophils % (auto) 74.7 %; Platelet Count 448 K/uL (130-400); RDW Coefficient of Variation 15.1 % (11.5-14.5); RDW Standard Deviation 49.7 fL (36.4-46.3); Red Blood Count 3.49 M/uL (4.63-6.08); White Blood Count 21.27 K/ul (4.8-10.8)
[2022-02-17 06:10] LABS: Albumin Globulin Ratio 0.7 (0.9-2); Albumin Level 2.5 gm/dl (3.4-5.0); BUN Creatinine Ratio 20.7 (10-20); Bilirubin,Total 0.4 mg/dl (0.2-1.0); Calcium 8.1 mg/dl (8.5-10.1); Creatinine Clr Calc Pharmacy 67.6 ml/min; Est GFR (African American) 92.7 ml/min; Est GFR (Non-African American) 79.9 ml/min; Globulin 3.6 gm/dl (2.5-4.0); Potassium 4.8 mmol/L (3.5-5.1); Total Protein 6.1 gm/dl (6.0-8.3)
[2022-02-17 06:16] LABS: Partial Thromboplastin Ratio 2.5
[2022-02-17 07:24] LABS: Partial Thromboplastin Time 67.8 Seconds (21.0-31.0)
[2022-02-17] MEDS: ASPIRIN 81 MG ECTAB PO SCH (07:41)
[2022-02-17] MEDS: METOPROLOL SUCC 50MG EXT REL TAB PO SCH (07:41)
[2022-02-17] MEDS: predniSONE 20 MG TAB PO SCH (07:41)
[2022-02-17] MEDS: PANTOprazole 40 MG TAB PO SCH (07:42)
[2022-02-17] MEDS: DUTASTERIDE 0.5 MG PO SCH (07:42)
[2022-02-17] MEDS: lisinopril 20 MG TAB PO SCH (07:42)
[2022-02-17] MEDS: MULTIVITAMIN TAB PO SCH (07:42)
[2022-02-17] MEDS: METHYLCELLULOSE POWDER 454 GM JAR PO SCH (07:42)
--- NOTE | 2022-02-17 08:43 | Pulmonology Progress Note ---
Date of Service February 17, 2022 Assessment & Plan (1) Pneumonitis: (2) Acute hypoxemic respiratory failure: (3) Glioblastoma: (4) Abnormal chest CT: (5) Ex-smoker: Plan 76-year-old male with recently diagnosed glioblastoma status post resection presenting to the hospital with hypoxemic respiratory failure. CT chest consistent with pneumonitis. -- Acute hypoxic respiratory failure Patient diffuse groundglass opacities appreciated bilaterally Infections like PJP can give similar finding especially given that the patient was on high-dose dexamethasone for almost a month which was gradually being tapered off Alveolar hemorrhage can present in similar way along with acute eosinophilic pneumonia Absolute eosinophil count on presentation was 360 S/p bronchoscopy 02/15/2022. No alveolar hemorrhage appreciated on bronchoscopy BAL mostly monocytic, lymphocytes only 5% (patient was already on steroids) Follow-up cytology BAL was negative for PJP on gram stain, follow-up culture and PCR Respiratory bio fire negative 02/11/2022 Beta D glucan and urine Legionella has been ordered 2D echo 02/11/2022: EF 65-70%, grade 1 diastolic dysfunction, mild concentric LVH --Ex-smoker Quit in 1989 Plan: Go down on prednisone to 40 mg daily for 5 days as of tomorrow followed by 20 mg daily for 11 days, so total of 21 days Complete the course of Bactrim for total of 21 days. Would recommend the patient to be on pantoprazole while he is getting prednisone No further recommendation from pulmonary perspective. Will sign off, please call directly with any questions Please note the above document was generated using voice recognition software. It may contain grammatical, syntax or spelling errors.Any formal questions or concerns about the content, text or information contained within the body of this dictation should be directly addressed to the provider for clarification. Admission and Anticipated Discharge Date Admission Date: February 11, 2022 Subjective Patient seen and examined at bedside. No acute distress, no adverse events overnight. Shortness of breath is improved. Denies any chest pain Coughing up clear phlegm. No hemoptysis. Fair appetite, no nausea or vomiting Denies any headache Patient was saturating 96% on 3 L nasal cannula. I went down to 2 L Review of Systems Review of Systems: All systems reviewed & are unremarkable except as noted in Subjective Physical Exam Physical Exam: Constitutional: No acute distress HEENT: EOMI, PERRLA Respiratory system: Decreased air entry bilaterally, no wheeze, rhonchi, positive crackles appreciated bilaterally anteriorly and posteriorly CVS: S1-S2 positive, no murmurs or gallops Abdomen: Soft, nontender, nondistended, positive bowel sounds x4, obese Extremities: +2 pulses bilaterally radialis/ dorsalis pedis, no cyanosis, no edema Neuro: Awake alert oriented x3 Psych: Normal mood and affect G/U: No Quiros Skin: no rashes, warm and dry Lymphatic: no cervical or axillary lymphadenopathy Results & Data Results & Data ([facility]) Vital Signs (Past 12 Hours) Vital Signs Temp Pulse Pulse Resp BP Pulse Ox O2 Del Method 02/17/22 07:45 36.4 C L 72 18 121/63 94 Nasal Cannula 02/17/22 07:06 63 02/16/22 22:16 59 L 02/17/22 03:33 36.6 C 72 18 115/63 94 Nasal Cannula 02/16/22 22:53 36.9 C 70 18 118/57 L 94 Nasal Cannula O2 Flow Rate 02/17/22 07:45 3 02/17/22 07:06 02/16/22 22:16 02/17/22 03:33 3 02/16/22 22:53 3 Laboratory Results 02/17/22 05:32 02/17/22 05:32 PG Care Time/CCT Total # of Minutes Spent Total Time Spent with Patient: Total time spent is greater than 50% in coordination of care (as documented) at patient's floor/unit and/or counseling patient: Coding [place] [address] Subseq Hosp Care Lvl 2 Patient Type Established Diagnoses Pneumonitis J18.9 Acute hypoxemic respiratory failure J96.01 Glioblastoma C71.[address] R93.89 Ex-smoker Z87.891
[2022-02-17] MEDS ORDERED: AZITHROMYCIN 250 MG TAB PO SCH (09:00)
[2022-02-17 12:22] LABS: Pneumocystis jirovecii PCRQual NOT DETECTED; Pneumocystis jirovecii Source SPUTUM
--- NOTE | 2022-02-17 12:49 | Discharge Summary ---
Date of Service February 17, 2022 Admission HPI Per Admitting Provider Jose Bose is a 76-year-old male with past medical history significant for glioblastoma, CAD, hypertension, GERD, who presents today from his PCP office due to hypoxia. He was at a visit today with an unrelated issue of bilateral leg cramping when he was found to be 75 to 78% on room air, with mild improvement to 90-92% on 6L NC. He was transported to ED by private vehicle and his , and on presentation is without many complaints. He may have had some chills over the past couple days, and has had a dry throat since extubation first tumor resection several weeks ago, was recently prescribed fluconazole for thrush for which he recently finished several days ago. He has an occasional dry cough, but is otherwise without any fever, body aches, weakness, fatigue, noticeable shortness of breath, chest pain, or palpitations. No one has been sick around him. He checks his temperature daily and it is always been 97 to 98 F. He presented to our ED 61% on room air, now up to 94% on oxygen mask. Otherwise vital signs are within normal limits. Labs are significant for an elevated WBC of 12, Hgb 12.5, platelets 476. Mild acute transaminitis, AST 68, ALT 54, alk phos 2 9. VBG: pH 7.48, CO2 28, O2 66, bicarb 21. Sodium mildly low at 133, renal function at baseline. Blood cultures collected. COVID/flu/RSV negative. Chest CT today shows extensive groundglass opacities compatible with pneumonia, no evidence of pulmonary emboli. Principal Diagnosis Bilateral pneumocystis pneumonia, acute hypoxic respiratory failure, splenic infarctions, Discharge Exam General-alert and oriented x3, no fevers, no chills HEENT-head atraumatic and normocephalic, TMs intact bilaterally, pupils equal and reactive to light, extraocular muscles intact Neck-no lymphadenopathy or thyromegaly, trachea midline Chest-scattered bilateral expiratory rhonchi. No dullness to percussion. No wheezing Cardiac-regular rate and rhythm, normal S1 and S2, no murmurs Abdomen-normal bowel sounds, nontender, no hepatosplenomegaly Extremities-no cyanosis, clubbing, or edema Neuro-cranial nerves II through XII intact, motor and sensory function within normal limits, strength symmetrical , no focal deficits Psych-normal affect, normal mood Discharge Data Allergies Allergy/AdvReac Type Severity Reaction Status Date / Time No Known Allergies Allergy Unknown Verified 02/11/22 17:38 Consultations 02/11/22 18:08 ED Decision to Admit Stat 02/12/22 08:24 Consult Pulmonology Routine 02/15/22 18:33 Consult Radiation Oncology Routine Procedures Performed Operation Date: 02/15/22 10:00 Actual Procedures p Bronchoscopy Radiology - Steve Duff MD, [facility] Ordered Studies 02/11/22 16:36 CT angio chest PE protocol Stat 02/11/22 19:26 CT abd pelvis IV con only Urgent Hospital Course (1) Pneumonia: 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 Treated with intravenous Bactrim and also oral azithromycin while hospitalized. Home on oral Bactrim therapy for an additional 3 weeks.. Appreciate pulmonary medicine consultation. Repeat chest x-ray done February 16 revealed bilateral infiltrates with no significant change. Not yet started chemotherapy and no other medications to suspect iatrogenic pneumonitis. He underwent bronchoscopy on February 15. (2) Pneumocystis jiroveci pneumonia: Treated with IV Bactrim and po prednisone per pulmonology recommendations. Home on oral Bactrim for an additional 3 weeks and a prolonged prednisone taper (3) Acute hypoxemic respiratory failure: Currently on oxygen per nasal cannula. Two-step evaluation reveals the need for oxygen at 3 L/min with ambulation post discharge. (4) Splenic infarction: TTE - no PFO, no thrombus. Treated with heparin IV while hospitalized (5) Glioblastoma: S/p [place] [facility]. Radiation will commence next Monday. (6) Hypertension: Continue lisinopril and metoprolol. Controlled (7) GERD (gastroesophageal reflux disease): Continue PPI. Stable (8) CAD (coronary artery disease): History of [place] in 1989. Currently stable. Continue aspirin therapy, statin, lisinopril, metoprolol with nitro as needed. (9) Transaminitis: Continue to monitor (10) Urinary retention: Longstanding urine retention which improved s/p TURP. Contimue tamsulosin 0.4mg PO HS and Avodart. Plan discharge to home today, February 17 with oxygen and a prolonged course of oral Bactrim and tapering prednisone dose Total Time Total Time Spent Total Time Spent (In Minutes): 35 minutes Discharge Plan Discharge Items Patient Disposition: Home - Home Health Services Reason For Visit: PNEUMONIA Discharge Diagnosis: Bilateral pneumocystis pneumonia, acute hypoxic respiratory failure, splenic infarctions Activity: Per Instructions section Activity Comment: As tolerated with oxygen Non-emergency contact: Primary Care Provider Call non-emergency contact if: you have any medication questions Follow-up/Referrals: Leonardo Gates CRNP [Primary Care Provider] - Diet: Heart Healthy Addtl Attending Provider Instructions: Take Bactrim and prednisone as prescribed Pending Studies at Discharge: No Stand-Alone Forms: My [facility] [employer], Smoking Cessation Medications and DC Order Prescriptions: New sulfamethoxazole-trimethoprim [Bactrim DS] 800-160 mg Tablet 2 tab PO Q6 Qty: 168 0RF aspirin 81 mg Tablet,Delayed Release (Dr/Ec) 81 mg PO QAM Qty: 30 0RF tamsulosin 0.4 mg Capsule 0.4 mg PO HS Qty: 30 0RF prednisone 20 mg Tablet See Rx Instructions .ROUTE .COMPLEX Qty: 41 0RF Rx Instructions: Take 2 tablets twice a day for 5 days then 2 tablets daily for 5 days then 1 tablet daily for 11 days then stop dutasteride 0.5 mg Capsule 1 ea PO QAM Qty: 30 0RF Continued multivitamin [Multiple Vitamins] Tablet 1 tab PO DAILY omeprazole 20 mg capsule,delayed release(DR/EC) 20 mg PO DAILY dutasteride [Avodart] 0.5 mg capsule 0.5 mg PO QAM Qty: 90 1RF metoprolol succinate 50 mg tablet extended release 24 hr 50 mg PO QAM Qty: 90 1RF atorvastatin 40 mg tablet 40 mg PO QAM Qty: 90 1RF Hold Instructions: myalgia Rx Instructions: ON HOLD PER PT "FOR A WEEK OR 2, TO SEE IF LEG PAINS BETTER". ondansetron 8 mg tablet,disintegrating 8 mg PO Q12H PRN (Reason: TAKE PRIOR TO CHEMO MED) temozolomide 140 mg capsule 140 mg PO DAILY Rx Instructions: WILL START 02/15/22. must be taken on empty stomach take night before 1st radiation and ending of last radiation nitroglycerin 0.4 mg tablet, sublingual 0.4 mg sublingual Q5M PRN (Reason: Chest Pain) Label Comments: Never used Rx Instructions: do not exceed 3 doses per episode lisinopril 40 mg tablet 40 mg PO QAM Qty: 90 1RF acetaminophen [Tylenol Extra Strength] 500 mg Tablet 500 - 1,000 mg PO DIRECTED PRN (Reason: Pain) Citrucel Sugar Free Powder 2 g PO DAILY Beano 450 unit Tablet,Disintegrating 450 unit PO BID PRN (Reason: Gi Upset) Discontinued aspirin 325 mg Tablet 325 mg PO QAM Discharge Orders: Discharge Order (Routine); Ordered 02/17/22 Ordered By: Ruben Sanchez Admission Data Admit Date/Time: 02/11/22 18:52 Attending Provider: Ruben Sanchez Admit Provider: Dusty López Primary Care Provider: Leonardo Gates Other Providers: Dusty López ; Byron Hoffmann ; Eran Fontenot Coding Level of Care Code D/C DAY MANAGEMENT >30 MINS Diagnoses Pneumonia J18.9 Pneumocystis jiroveci pneumonia B59 Acute hypoxemic respiratory failure J96.01 Splenic infarction D73.5 Glioblastoma C71.9 Hypertension I10 GERD (gastroesophageal reflux disease) K21.9 Esophagitis presence: without esophagitis CAD (coronary artery disease) I25.10 Transaminitis R74.01 Urinary retention R33.9
[2022-02-22 13:42] LABS: Pneumocystis jirovecii PCRQual NOT DETECTED; Pneumocystis jirovecii Source BRONCH LAV
== END 2022-02-17 14:08 | disposition home or self-care (01) | DRG 166 ==
LOC: ED 15:39 → SUATTDRO 18:52 → 2N 18:52

== ENCOUNTER 2022-02-25 04:35 | Inpatient (IN) ==
[2022-02-25 04:56] LABS: Basophils # (auto) 0.07 K/uL (0-0.2); Basophils % (auto) 0.3 %; Eosinophils # (auto) 0.01 K/uL (0-0.50); Immature Granulocytes # (auto) 0.91 K/uL (0.00-0.02); Immature Granulocytes % (auto) 3.6 %; Lymphocytes # (auto) 4.07 K/uL (1.2-3.4); Lymphocytes % (auto) 16.3 %; Mean Corpuscular Hemoglobin 31.9 pg (25.0-34.0); Mean Corpuscular Hgb Conc 36.1 g/dL (32.0-36.0); Mean Corpuscular Volume 88.2 fL (80.0-100.0); Mean Platelet Volume 10.1 fL (9.4-12.4); Neutrophils # (auto) 17.96 K/uL (1.4-6.5); Neutrophils % (auto) 71.8 %; Platelet Count 430 K/uL (130-400); RDW Coefficient of Variation 14.4 % (11.5-14.5); RDW Standard Deviation 45.9 fL (36.4-46.3); Red Blood Count 4.08 M/uL (4.63-6.08); White Blood Count 25.02 K/ul (4.8-10.8)
--- NOTE | 2022-02-25 05:09 | Emergency Department Note ---
History of Present Illness General Chief complaint: Abdominal Pain Stated complaint: ABDOMINAL PAIN, WEAKNESS, VAGEL REACTION Time Seen by Provider: 02/25/22 04:48 History of Present Illness This is a 76-year-old male that presents to the emergency department via EMS with complaints of "weakness". The patient is status post surgery that occurred in January of this year for glioblastoma. This was performed at [facility]. Patient is also on oral chemotherapy medication. He is also receiving radiation. Patient has had poor oral intake with food and fluid as of recent. There has been increasing weakness over the past several days. He has had trouble walking noting the overall weakness he is experiencing. No speech trouble. No fevers. Patient is currently on antibiotics as well as prednisone. He is also on Temozolomide. Home Medications Medication Instructions Recorded Confirmed Type nitroglycerin 0.4 mg sublingual 0.4 mg sublingual Q5M PRN Chest 01/27/20 02/23/22 History tablet Pain atorvastatin 40 mg tablet 40 mg PO QAM #90 tabs 08/31/21 02/23/22 Rx lisinopril 40 mg tablet 40 mg PO QAM #90 tabs 12/29/21 02/23/22 Rx dutasteride 0.5 mg capsule 0.5 mg PO QAM #90 caps 01/07/22 02/23/22 Rx (Avodart) metoprolol succinate 50 mg 50 mg PO QAM #90 tabs 01/11/22 02/23/22 Rx tablet,extended release 24 hr multivitamin (Multiple Vitamins 1 tab PO DAILY 02/02/22 02/23/22 History tablet) omeprazole 20 mg capsule,delayed 20 mg PO DAILY 02/02/22 02/23/22 History release acetaminophen 500 mg tablet 500 - 1,000 mg PO DIRECTED PRN 02/11/22 02/23/22 History (Tylenol Extra Strength) Pain [id number] 450 unit 450 unit PO BID PRN Gi Upset 02/11/22 02/23/22 Hi story disintegrating tablet (Beano) methylcellulose (laxative) 2 g PO DAILY 02/11/22 02/23/22 History (Citrucel Sugar Free oral powder) ondansetron 8 mg disintegrating 8 mg PO Q12H PRN TAKE PRIOR TO 02/11/22 02/23/22 History tablet CHEMO MED temozolomide 140 mg capsule 140 mg PO DAILY 02/11/22 02/23/22 History aspirin 81 mg tablet,delayed 81 mg PO QAM #30 tabs 02/17/22 02/23/22 Rx release dutasteride 0.5 mg capsule 1 ea PO QAM #30 caps 02/17/22 02/23/22 Rx prednisone 20 mg tablet See Rx Instructions .Route 02/17/22 02/23/22 Rx .COMPLEX #41 tabs sulfamethoxazole 800 2 tab PO Q6 #168 tabs 02/17/22 02/23/22 Rx mg-trimethoprim 160 mg tablet (Bactrim DS) tamsulosin 0.4 mg capsule 0.4 mg PO HS #30 caps 02/17/22 02/23/22 Rx Allergies Allergy/AdvReac Type Severity Reaction Status Date / Time No Known Allergies Allergy Unknown Verified 02/23/22 14:55 Past Med/Surg History Medical History Atherosclerotic heart disease of [place] coronary artery without angina pectoris Bilateral hydronephrosis BPH (benign prostatic hyperplasia) BPH with obstruction/lower urinary tract symptoms CAD (coronary artery disease) inferior wall NC 1989 s/p PTCA of the CX artery Carotid stenosis, left hx surgery for Chest pain Diverticulosis Foreign body in ear GERD (gastroesophageal reflux disease) Glioblastoma 01/04/[address] Jordan History of COVID-21 MAR 2020 Hyperlipidemia Hypertension Myocardial Infarction 1989 Nasal congestion Paresthesia of left arm and leg Pneumonitis Post-void dribbling Prostate nodule Pure hypercholesterolemia Urinary frequency Urinary tract infection, acute Surgical History History of cataract surgery Bilateral History of colonoscopy History of craniotomy 01/04/22 History of cystoscopy History of left-sided carotid endarterectomy History of tooth extraction Hx of angioplasty 1989- no stents S/P bronchoscopy 02/15/22 Dr. Steve Duff at [facility]- Bronchoscopy Family History Father , 86yo Lung cancer Myocardial infarction Hypertension Mother , 92yo Pacemaker Hypertension Sister H/O carotid endarterectomy Stroke following surgery; Hypertension Dyslipidemia Sister Dyslipidemia Hypertension Melanoma Sister Hypertension Denies family history of Ovarian cancer Prostate cancer Breast cancer Colorectal cancer Social History Smoking Status: Former smoker Tobacco Type: Cigarettes packs per day: 0.5; Second Hand Exposure: No; Do You Dip or Chew Tobacco: No; Tobacco Cessation Education Requested by Patient: No Hx Alcohol Use: No Hx Substance Use: No Preferred Language: Irish Communication Ability: Effective Visual Impairment: No Limitations Hearing Ability: Use of Hearing Aid Weatherization Specialist Required: No Beliefs That Will Affect Care: None marital status: marital status details: Amrita Current Living Situation: Spouse current occupational status: retired How many Children do You have: 0 Other Information That Helps Us Care for You: No Feels Safe at Home: Yes Safety Concerns: Feels Safe At This Time Childhood Exposure to Second-Hand Smoke: Yes (father ) Diet Comment: tries to eat healthy caffeine: Yes (3 cups daily ) during the past year weight has: remained stable Dental Care, Regularly: Yes Physical Activity Frequency: Daily Seatbelt Use: always Sunscreen Use: No Assistive Devices: Cane, Denture - Upper, Denture - Lower, Glasses, Hearing Aid - Left and Oxygen - Continuous Review of Systems A total of 10 systems reviewed and were otherwise negative Physical Exam Vital Signs Vital Signs - 24 hr 02/25/22 04:53 02/25/22 04:54 02/25/22 06:28 Temperature 36.7 C Temperature Source Oral Pulse Rate 68 72 Pulse Rate [Apical] 65 Respiratory Rate 22 16 Respiratory Effort / Characteristics Non-Labored Spontaneous Non-Labored Spontaneous Respiratory Depth Normal Normal Respiratory Pattern Regular Regular Blood Pressure 111/56 L Blood Pressure [Right Arm] 102/65 Blood Pressure Mean 74 Blood Pressure Mean [Right Arm] 77 Blood Pressure Position Lying Blood Pressure Position [Right Arm] Lying Pulse Oximetry 96 93 94 Oxygen Delivery Method Nasal Cannula Nasal Cannula Room Air Oxygen Flow Rate 2 2 Sepsis Recent Fever Within 48 Hours No Sepsis New/Unexplained Change in Mental Status N/A Sepsis Action Taken by Nursing No Action Required VITAL SIGNS - Vital signs and nursing notes were reviewed. Stable and afebrile. GENERAL - 76-year-old male appearing his stated age who is in no acute distress. Communicates well with provider and answers questions appropriately. SKIN - Without rashes. No meningeal or petechial rash. HEAD - NC/AT. Right-sided posterior auricular vertical scalp incision noted without dehiscence. No evidence of infection. No drainage. EYES - PERRL with EOMI bilaterally. Sclera anicteric. EARS - No deformities of external structures noted on gross examination bilaterally. NOSE - Midline and without cyanosis. No epistaxis or purulent drainage noted. MOUTH/OROPHARYNX - Without perioral cyanosis. NECK - Neck with FROM. No nuchal rigidity. LUNGS - Chest wall symmetric without accessory muscle use, intercostals retractions, or central cyanosis. Normal vesicular breath sounds CTA B/L. No wheezes, rales, or rhonchi appreciated. CARDIAC - RRR with S1/S2. No murmur, rubs, or gallops appreciated. ABDOMEN - Abdominal contour normal without pulsations or visible masses. BS n ormoactive all four quadrants. No tenderness, palpable masses, hepatosplenomegaly, or ascites noted. EXTREMITIES - No clubbing or peripheral cyanosis. +5/5 strength noted in UE/LE bilaterally. NEUROLOGIC - Cranial nerves II through XII grossly intact. Sensory intact to light touch throughout. PSYCH - A&O, and cooperates fully with examiner. Pt is very pleasant and interacts well with examiner. Course Administered Medications Aspirin (Aspirin 81 Mg Ectab) 81 mg PO QAM [facility] Stop: 03/27/22 09:44 Last Admin: 02/25/22 10:28 Dose: 81 mg Documented By: NEGRO Atorvastatin Calcium (Atorvastatin 40 Mg Tab) 40 mg PO QAM DEMAR Stop: 03/27/22 09:44 Last Admin: 02/25/22 10:33 Dose: Not Given Documented By: NEGRO Dutasteride (Dutasteride 0.5mg Capsule) 1 each PO Q24H DEMAR Stop: 03/27/22 09:59 Last Admin: 02/25/22 10:29 Dose: 1 each Documented By: NEGRO Heparin Sodium (Porcine) (Heparin Sod 5,000 Unit/0.5 Ml Vial) 5,000 units SQ Q12 DEMAR Stop: 03/27/22 20:59 Last Admin: 02/25/22 21:08 Dose: 5,000 units Documented By: KALYANI Famotidine 20 mg/ Syringe 5 mls @ 2.5 mls/min IV Q12H DEMAR Stop: 03/27/22 09:59 Last Admin: 02/25/22 21:09 Dose: 2.5 mls/min Documented By: Admin: 02/25/22 10:28 Dose: 2.5 mls/min Documented By: NEGRO Sodium Chloride (Nss 1000ml) 1,000 mls @ 80 mls/hr IV .[id number] DEMAR Stop: 03/27/22 10:14 Last Admin: 02/25/22 10:33 Dose: 80 mls/hr Documented By: NEGRO Hydrocortisone Sodium (Succinate 50 mg/ Syringe) 1 mls @ 4 mls/min IV Q8H DEMAR Stop: 03/27/22 15:44 Last Admin: 02/25/22 16:01 Dose: 4 mls/min Documented By: NEGRO Miscellaneous (Icu Protocol For Hyperglycemia) 1 each N/A ACHS DEMAR Stop: 02/27/22 09:12 Last Admin: 02/25/22 21:09 Dose: 1 each Documented By: Admin: 02/25/22 16:01 Dose: Not Given Documented By: Admin: 02/25/22 10:33 Dose: Not Given Documented By: Admin: 02/25/22 09:43 Dose: Not Given Documented By: NEGRO Pantoprazole Sodium (Pantoprazole 40 Mg Tab) 40 mg PO DAILY DEMAR Stop: 03/27/22 09:44 Last Admin: 02/25/22 10:28 Dose: 40 mg Documented By: NEGRO Tamsulosin HCl (Tamsulosin Hcl 0.4 Mg Cap) 0.4 mg PO HS DEMAR Stop: 03/27/22 20:59 Last Admin: 02/25/22 21:07 Dose: 0.4 mg Documented By: LMP Discontinued Medications Dextrose (Dextrose 50% 50 Ml Syringe) 50 ml IV NOW STA Stop: 02/25/22 06:56 Last Admin: 02/25/22 07:36 Dose: 50 ml Documented By: JOSE Hydrocortisone Sodium Succinate (Hydrocortisone Sod Succinate 100 Mg/2 Ml Vial) 100 mg IV NOW ONE Stop: 02/25/22 07:46 Last Admin: 02/25/22 07:50 Dose: 100 mg Documented By: JOSE Sodium Chloride (Nss 1000ml) 1,000 mls @ 999 mls/hr IV .Q1H1M DEMAR Stop: 02/25/22 07:30 Last Infusion: 02/25/22 07:43 Dose: 0 mls/hr Documented By: Admin: 02/25/22 06:25 Dose: 999 mls/hr Documented By: Sodium Chloride (Hypertonic Saline 3%) 100 mls @ 600 mls/hr IV .Q10M ONE; Protocol Stop: 02/25/22 11:13 Last Infusion: 02/25/22 13:02 Dose: 0 mls/hr Documented By: NEGRO Co-signed By: JT Admin: 02/25/22 12:51 Dose: 600 mls/hr Documented By: NEGRO Co-signed By: JT Insulin Human Regular (Novolin-R Insulin Per Unit Charge) 10 units IV NOW STA Stop: 02/25/22 06:56 Last Admin: 02/25/22 07:35 Dose: 10 units Documented By: JOSE Co-signed By: ASHLIE Miscellaneous (Temozolomide-Order Awaiting Action) 1 each N/A QS DEMAR Stop: 03/27/22 09:44 Last Admin: 02/25/22 10:10 Dose: Not Given Documented By: NEGRO Medical Decision Making Laboratory Data Result diagrams: 02/25/22 04:00 02/25/22 17:17 Lab Results 02/25/22 02/25/22 02/25/22 Range/Units 04:00 04:00 04:00 WBC 25.02 H (4.8-10.8) K/ul RBC 4.08 L (4.63-6.08) M/uL Hgb 13.0 L (14.0-18.0) g/dl Hct 36.0 L (40.1-51.0) % MCV 88.2 (80.0-100.0) fL MCH 31.9 (25.0-34.0) pg MCHC 36.1 H (32.0-36.0) g/dL RDW Std Deviation 45.9 (36.4-46.3) fL RDW Coeff of Nick 14.4 (11.5-14.5) % Plt Count 430 H (130-400) K/uL MPV 10.1 (9.4-12.4) fL Immature Gran % (Auto) 3.6 % Neut % (Auto) 71.8 % Lymph % (Auto) 16.3 % [place] % (Auto) 8.0 % Eos % (Auto) 0.0 % Baso % (Auto) 0.3 % Neut # (Auto) 17.96 H (1.4-6.5) K/uL Lymph # (Auto) 4.07 H (1.2-3.4) K/uL [place] # (Auto) 2.00 H (0.24-0.82) K/uL Eos # (Auto) 0.01 (0-0.50) K/uL Baso # (Auto) 0.07 (0-0.2) K/uL Immature Gran # (Auto) 0.91 H (0.00-0.02) K/uL Sodium 111 L* (136-145) mmol/L Potassium 6.0 H (3.5-5.1) mmol/L Chloride 82 L (98-107) mmol/L Carbon Dioxide 18 L (21-32) mmol/L Anion Gap 11 (3-11) BUN 46 H (6-23) mg/dl Creatinine 1.96 H (0.6-1.4) mg/dl Est Cr Clr Drug Dosing 31.3 ml/min Est GFR ( Amer) 37.1 ml/min Est GFR (Non-Af Amer) 32.0 ml/min BUN/Creatinine Ratio 23.5 H (10-20) Glucose 96 (70-99(Fasting)) mg/dl Osmolality (280-300) mOsm/kg Lactate (0.4-2.0) mmol/L Calcium 8.1 L (8.5-10.1) mg/dl Magnesium 2.5 H (1.7-2.4) mg/dl Total Bilirubin 0.7 (0.2-1.0) mg/dl AST 38 (13-39) U/L ALT 79 H (7-52) U/L Alkaline Phosphatase 134 H (34-104) U/L Troponin I High Sens 12.5 (0-20) pg/ml Total Protein 6.7 (6.0-8.3) gm/dl Albumin 3.1 L (3.4-5.0) gm/dl Globulin 3.6 (2.5-4.0) gm/dl Albumin/Globulin Ratio 0.9 (0.9-2) Procalcitonin (0-0.5) ng/ml TSH 2.519 (0.300-4.500) uIu/ml Urine Color Urine Appearance (Clear) Urine pH (4.5-7.5) Ur Specific Albert (1.000-1.030) Urine Protein (Negative) Urine Glucose (UA) (Negative) Urine Ketones (Negative) Urine Blood (Negative) Urine Nitrite (Negative) Urine Bilirubin (Negative) Urine Urobilinogen (Negative) Ur Leukocyte Esterase (Negative) Urine Osmolality (500-800) mOsm/kg Adenovirus (PCR) (NotDetected) B. pertussis DNA (PCR) (NotDetected) B.parapertussis DNA PCR (NotDetected) C. pneumoniae DNA (PCR) (NotDetected) Coronavirus OC43 (PCR) (NotDetected) Coronavirus HKU1 (PCR) (NotDetected) Coronavirus 229E (PCR) (NotDetected) SARS-CoV-2 (PCR) (NotDetected) Coronavirus NL63 (PCR) (NotDetected) Human Metapneumovir PCR (NotDetected) Influenza Type A (PCR) (NotDetected) Influenza Type B (PCR) (NotDetected) M. pneumoniae (PCR) (NotDetected) Parainfluenza 1 (PCR) (NotDetected) Parainfluenza 2 (PCR) (NotDetected) Parainfluenza 3 (PCR) (NotDetected) Parainfluenza 4 (PCR) (NotDetected) RSV (PCR) (NotDetected) Entero/Rhino (PCR) (NotDetected) 02/25/22 02/25/22 02/25/22 Range/Units 04:00 04:00 05:30 WBC (4.8-10.8) K/ul RBC (4.63-6.08) M/uL Hgb (14.0-18.0) g/dl Hct (40.1-51.0) % MCV (80.0-100.0) fL MCH (25.0-34.0) pg MCHC (32.0-36.0) g/dL RDW Std Deviation (36.4-46.3) fL RDW Coeff of Nick (11.5-14.5) % Plt Count (130-400) K/uL MPV (9.4-12.4) fL Immature Gran % (Auto) % Neut % (Auto) % Lymph % (Auto) % [place] % (Auto) % Eos % (Auto) % Baso % (Auto) % Neut # (Auto) (1.4-6.5) K/uL Lymph # (Auto) (1.2-3.4) K/uL [place] # (Auto) (0.24-0.82) K/uL Eos # (Auto) (0-0.50) K/uL Baso # (Auto) (0-0.2) K/uL Immature Gran # (Auto) (0.00-0.02) K/uL Sodium (136-145) mmol/L Potassium (3.5-5.1) mmol/L Chloride (98-107) mmol/L Carbon Dioxide (21-32) mmol/L Anion Gap (3-11) BUN (6-23) mg/dl Creatinine (0.6-1.4) mg/dl Est Cr Clr Drug Dosing ml/min Est GFR ( Amer) ml/min Est GFR (Non-Af Amer) ml/min BUN/Creatinine Ratio (10-20) Glucose (70-99(Fasting)) mg/dl Osmolality 255 L (280-300) mOsm/kg Lactate (0.4-2.0) mmol/L Calcium (8.5-10.1) mg/dl Magnesium (1.7-2.4) mg/dl Total Bilirubin (0.2-1.0) mg/dl AST (13-39) U/L ALT (7-52) U/L Alkaline Phosphatase (34-104) U/L Troponin I High Sens (0-20) pg/ml Total Protein (6.0-8.3) gm/dl Albumin (3.4-5.0) gm/dl Globulin (2.5-4.0) gm/dl Albumin/Globulin Ratio (0.9-2) Procalcitonin < 0.05 (0-0.5) ng/ml TSH (0.300-4.500) uIu/ml Urine Color Yellow Urine Appearance Clear (Clear) Urine pH 7.0 (4.5-7.5) Ur Specific Albert 1.018 (1.000-1.030) Urine Protein Negative (Negative) Urine Glucose (UA) Negative (Negative) Urine Ketones Negative (Negative) Urine Blood Negative (Negative) Urine Nitrite Negative (Negative) Urine Bilirubin Negative (Negative) Urine Urobilinogen Negative (Negative) Ur Leukocyte Esterase Negative (Negative) Urine Osmolality (500-800) mOsm/kg Adenovirus (PCR) (NotDetected) B. pertussis DNA (PCR) (NotDetected) B.parapertussis DNA PCR (NotDetected) C. pneumoniae DNA (PCR) (NotDetected) Coronavirus OC43 (PCR) (NotDetected) Coronavirus HKU1 (PCR) (NotDetected) Coronavirus 229E (PCR) (NotDetected) SARS-CoV-2 (PCR) (NotDetected) Coronavirus NL63 (PCR) (NotDetected) Human Metapneumovir PCR (NotDetected) Influenza Type A (PCR) (NotDetected) Influenza Type B (PCR) (NotDetected) M. pneumoniae (PCR) (NotDetected) Parainfluenza 1 (PCR) (NotDetected) Parainfluenza 2 (PCR) (NotDetected) Parainfluenza 3 (PCR) (NotDetected) Parainfluenza 4 (PCR) (NotDetected) RSV (PCR) (NotDetected) Entero/Rhino (PCR) (NotDetected) 02/25/22 02/25/22 02/25/22 Range/Units 05:30 05:30 05:48 WBC (4.8-10.8) K/ul RBC (4.63-6.08) M/uL Hgb (14.0-18.0) g/dl Hct (40.1-51.0) % MCV (80.0-100.0) fL MCH (25.0-34.0) pg MCHC (32.0-36.0) g/dL RDW Std Deviation (36.4-46.3) fL RDW Coeff of Nick (11.5-14.5) % Plt Count (130-400) K/uL MPV (9.4-12.4) fL Immature Gran % (Auto) % Neut % (Auto) % Lymph % (Auto) % [place] % (Auto) % Eos % (Auto) % Baso % (Auto) % Neut # (Auto) (1.4-6.5) K/uL Lymph # (Auto) (1.2-3.4) K/uL [place] # (Auto) (0.24-0.82) K/uL Eos # (Auto) (0-0.50) K/uL Baso # (Auto) (0-0.2) K/uL Immature Gran # (Auto) (0.00-0.02) K/uL Sodium (136-145) mmol/L Potassium (3.5-5.1) mmol/L Chloride (98-107) mmol/L Carbon Dioxide (21-32) mmol/L Anion Gap (3-11) BUN (6-23) mg/dl Creatinine (0.6-1.4) mg/dl Est Cr Clr Drug Dosing ml/min Est GFR ( Amer) ml/min Est GFR (Non-Af Amer) ml/min BUN/Creatinine Ratio (10-20) Glucose (70-99(Fasting)) mg/dl Osmolality (280-300) mOsm/kg Lactate 1.1 (0.4-2.0) mmol/L Calcium (8.5-10.1) mg/dl Magnesium (1.7-2.4) mg/dl Total Bilirubin (0.2-1.0) mg/dl AST (13-39) U/L ALT (7-52) U/L Alkaline Phosphatase (34-104) U/L Troponin I High Sens (0-20) pg/ml Total Protein (6.0-8.3) gm/dl Albumin (3.4-5.0) gm/dl Globulin (2.5-4.0) gm/dl Albumin/Globulin Ratio (0.9-2) Procalcitonin (0-0.5) ng/ml TSH (0.300-4.500) uIu/ml Urine Color Urine Appearance (Clear) Urine pH (4.5-7.5) Ur Specific Albert (1.000-1.030) Urine Protein (Negative) Urine Glucose (UA) (Negative) Urine Ketones (Negative) Urine Blood (Negative) Urine Nitrite (Negative) Urine Bilirubin (Negative) Urine Urobilinogen (Negative) Ur Leukocyte Esterase (Negative) Urine Osmolality 485 L (500-800) mOsm/kg Adenovirus (PCR) Not Detected (NotDetected) B. pertussis DNA (PCR) Not Detected (NotDetected) B.parapertussis DNA PCR Not Detected (NotDetected) C. pneumoniae DNA (PCR) Not Detected (NotDetected) Coronavirus OC43 (PCR) Not Detected (NotDetected) Coronavirus HKU1 (PCR) Not Detected (NotDetected) Coronavirus 229E (PCR) Not Detected (NotDetected) SARS-CoV-2 (PCR) Not Detected (NotDetected) Coronavirus NL63 (PCR) Not Detected (NotDetected) Human Metapneumovir PCR Not Detected (NotDetected) Influenza Type A (PCR) Not Detected (NotDetected) Influenza Type B (PCR) Not Detected (NotDetected) M. pneumoniae (PCR) Not Detected (NotDetected) Parainfluenza 1 (PCR) Not Detected (NotDetected) Parainfluenza 2 (PCR) Not Detected (NotDetected) Parainfluenza 3 (PCR) Not Detected (NotDetected) Parainfluenza 4 (PCR) Not Detected (NotDetected) RSV (PCR) Not Detected (NotDetected) Entero/Rhino (PCR) Not Detected (NotDetected) Imaging Data Radiologist's Impression: Chest X-Ray 02/25/22 05:04 SINGLE VIEW CHEST CLINICAL HISTORY: Generalized weakness. FINDINGS: An AP, portable, upright chest radiograph is compared to study dated 02/16/2022. Correlation is made with chest CT dated 02/11/2022. The heart is mildly enlarged noting atherosclerotic calcification of the thoracic aorta. Emphysema and chronic interstitial thickening is similar to previous. Interstitial thickening and bilateral airspace opacities is similar to previous. No large pleural effusion or pneumothorax is seen. The skeletal structures are osteopenic. The bony thorax is grossly intact. IMPRESSION: 1. Cardiomegaly and emphysema. 2. Interstitial thickening and bilateral airspace opacities are similar to previous. This could represent congestive failure and/or pneumonia and clinical correlation will be required. ACT 112: Negative or not required by law. Electronically signed by: Joseph Duque M.D. 02/25/2022 7:11 AM MDM Narrative Patient was seen and evaluated as above in room C10. Review was performed of nursing notes and vital signs. I did review pertinent previous visits and patient history. After obtaining a thorough history and physical examination the above work up was performed. Patient presents to us today for evaluation of weakness. He has had poor oral intake over the past few days. Options of care were discussed with the patient and at bedside. IV access was established. Labs were drawn. Labs reveal leukocytosis 25.02 which is slightly increased compared to previous. Hemoglobin 13.0 which is higher compared to previous. Platelet count also elevated at 430. There is significant hyponatremia noted at 111. This is a significant change compared to previous. Hyperkalemia noted with potassium of 6. There is evidence of TANYA with creatinine of 1.96 and BUN of 46. Hypocalcemia 8.1. Hypomagnesemia 2.5. ALT elevation at 79. Procalcitonin negative. TSH reveals euthyroid state. Lactate is within normal limits. The patient at this time does not appear to have any infectious etiology to his presentation. Patient's leukocytosis is not felt to be secondary to infectious process. Procalcitonin also does not suggest systemic illness. Patient clinically appears to be dehydrated. With the patient having hyponatremia in the setting of weakness it was felt that further evaluation and management in the inpatient setting was warranted. Patient will require close monitoring. I discussed this with the [facility] hospitalist, Dr. Azar that then evaluated the patient. 1L IV normal saline recommended here in the ED. This was ordered. Noting the patient's clinically dehydrated state this was felt warranted. It is felt that the benefit outweighs risk. Dr. Corley will place additional orders for fluid management and medication. Please refer to further documentation regarding his stay. I discussed all findings and plan of care with patient as well as his at bedside. I answered all of their questions. EKG reveals normal sinus rhythm at a rate of 67 bpm. QTc 424. QRS 100. There is no ST elevation. Case was discussed with the attending physician. GCS: 15 In the evaluation and treatment of this patient the following differential diagnoses were entertained: CVA, TIA, dehydration, infection, bacteremia, sepsis, electrolyte disturbance, kidney failure, liver failure, medication side effect, among others. Impression & Plan Hyponatremia, Leukocytosis, Acute renal failure, Hyperkalemia Discharge Plan Visit Data Chief Complaint: Abdominal Pain Stated Complaint: ABDOMINAL PAIN, WEAKNESS, VAGEL REACTION ED Provider: Latonia Huang ED Midlevel Provider: Nathaniel Mendoza Discharge Problem: Hyponatremia, Leukocytosis, Acute renal failure, Hyperkalemia Patient Disposition: Admitted As Inpatient Discharge Instructions Interventions: ED Discharge Assessment Last Done: 02/25/22 08:11
--- NOTE | 2022-02-25 05:34 | Emergency Department Note ---
ED Visit Note I was consulted by the Advanced Practice Provider. I saw the patient personally and performed a substantive portion of the visit. This includes aspects of the HPI, MDM, diagnostic interpretations, and disposition/plan. .
[2022-02-25 05:50] LABS: Albumin Globulin Ratio 0.9 (0.9-2); Albumin Level 3.1 gm/dl (3.4-5.0); BUN Creatinine Ratio 23.5 (10-20); Bilirubin,Total 0.7 mg/dl (0.2-1.0); Calcium 8.1 mg/dl (8.5-10.1); Creatinine Clr Calc Pharmacy 31.3 ml/min; Est GFR (African American) 37.1 ml/min; Globulin 3.6 gm/dl (2.5-4.0); Magnesium 2.5 mg/dl (1.7-2.4); Total Protein 6.7 gm/dl (6.0-8.3)
[2022-02-25 06:17] LABS: Appearance Urine Clear (Clear); Bilirubin Urine Negative (Negative); Blood Urine Negative (Negative); Color Urine Yellow; Glucose Urine UA Negative (Negative); Ketones Urine Negative (Negative); Leukocyte Esterase Urine Negative (Negative); Nitrite Urine Negative (Negative); Protein Urine Negative (Negative); Specific Gravity Urine 1.018 (1.000-1.030); Urobilinogen Urine Negative (Negative)
[2022-02-25 06:25] LABS: Troponin I High Sensitivity 12.5 pg/ml (0-20)
[2022-02-25] MEDS ORDERED: SODIUM CHLORIDE 0.9% 1000ML 1,000 ML IV SCH ×2 (06:30→10:15)
[2022-02-25 06:33] LABS: Adenovirus PCR Not Detected (NotDetected); Bordetella parapertussis PCR Not Detected (NotDetected); Bordetella pertussis PCR Not Detected (NotDetected); Chlamydia pneumoniae PCR Not Detected (NotDetected); Coronavirus 229E PCR Not Detected (NotDetected); Coronavirus CoV-2 (COVID19)PCR Not Detected (NotDetected); Coronavirus HKU1 PCR Not Detected (NotDetected); Coronavirus NL63 PCR Not Detected (NotDetected); Coronavirus OC43PCR Not Detected (NotDetected); Human Metapneumovirus PCR Not Detected (NotDetected); Influenza A PCR Not Detected (NotDetected); Influenza B PCR Not Detected (NotDetected); Mycoplasma pneumoniae PCR Not Detected (NotDetected); Parainfluenza Virus 1 PCR Not Detected (NotDetected); Parainfluenza Virus 2 PCR Not Detected (NotDetected); Parainfluenza Virus 3 PCR Not Detected (NotDetected); Parainfluenza Virus 4 PCR Not Detected (NotDetected); Respiratory Syncytial VirusPCR Not Detected (NotDetected); Rhinovirus/Enterovirus PCR Not Detected (NotDetected)
[2022-02-25] MEDS ORDERED: NovoLIN-R INSULIN PER UNIT CHARGE IV STA (06:55)
[2022-02-25] MEDS ORDERED: DEXTROSE 50% 50 ML SYRINGE IV STA (06:55)
--- NOTE | 2022-02-25 07:13 | XRay Report ---
SINGLE VIEW CHEST CLINICAL HISTORY: Generalized weakness. FINDINGS: An AP, portable, upright chest radiograph is compared to study dated 02/16/2022. Correlatio n is made with chest CT dated 02/11/2022. The heart is mildly enlarged noting atherosclerotic calcifi cation of the thoracic aorta. Emphysema and chronic interstitial thickening is similar to previous. I nterstitial thickening and bilateral airspace opacities is similar to previous. No large pleural effu bailey or pneumothorax is seen. The skeletal structures are osteopenic. The bony thorax is grossly inta ct. IMPRESSION: 1. Cardiomegaly and emphysema. 2. Interstitial thickening and bilateral airspace opacities are similar to previous. This could repre sent congestive failure and/or pneumonia and clinical correlation will be required. ACT 112: Negative or not required by law. Electronically signed by: Joseph Duque M.D. 02/25/2022 7:11 AM
[2022-02-25] MEDS ORDERED: HYDROCORTISONE SOD SUCCINATE 100 MG/2 ML VIAL IV SCH (07:30)
--- NOTE | 2022-02-25 07:31 | History & Physical Report ---
Date of Service February 25, 2022 Assessment & Plan (1) Hyponatremia: Plan: Symptomatic hyponatremia- Sodium 111 on admission Serum osmolality 255 Urine osmolality pending Receiving 1 L normal saline from the ED Place on fluid restriction 1500 mils until reported urine osmolality and then decide whether he gets hypertonic saline BMP every 4 hours x24 (2) Acute renal failure: Plan: Creatinine 1.96 on admission with baseline 0.9 to Hypotonic hyponatremia it was right Renal failure may be due to toxicity from chemotherapy as opposed to prerenal causes (3) Hyperkalemia: Plan: Potassium 6.0 on admission Give 50 mils of D50, followed by 10 units of regular insulin IV Then repeat BMP for all electrolytes (4) CAD (coronary artery disease): Plan: CAD/hypertension/history of ND- Hold all medications due to relatively low blood pressure: Lisinopril 40 mg daily, metoprolol succinate 50 mg daily. (5) Glioblastoma: Plan: Status post surgery in [facility] in January Present undergoing chemotherapy Placed on stress dose steroids, holding oral prednisone. Hydrocortisone 100 mg IV every 8 hours (6) BPH (benign prostatic hyperplasia): Plan: Continue dutasteride and tamsulosin (7) Hypertension: (8) Myocardial infarction: (9) GERD (gastroesophageal reflux disease): (10) Hypercholesteremia: (11) Carotid stenosis, left: (12) Myocardial Infarction: (13) Hyperlipidemia: History of Present Illness Chief Complaint: The patient presents to the emergency department with complaint of generalized abdominal pain, weakness, decreased oral intake for liquids and solids, all progressively worsening since his glioblastoma surgery at [facility] in January. Primary Care Provider: ELIZABET Pimentel The patient is a 76-year-old male with a past medical history including glioblastoma status post removal at [facility] in January, hyperlipidemia, BPH with LUTS, hypertension, CAD, GERD, myocardial infarction, left carotid stenosis, splenic infarction, presently undergoing chemotherapy status post surgery. Abnormal laboratories on admission: WBC 25.02, hemoglobin 13.0, hematocrit 36.0, platelets 430, sodium 111, potassium 6.0, chloride 82, bicarb 18, BUN 46, creatinine 1.96, serum osmolality 255, ALT 79, albumin 3.1. Viral panel is negative including COVID-19 Allergies Allergy/AdvReac Type Severity Reaction Status Date / Time No Known Allergies Allergy Unknown Verified 02/23/22 14:55 Home Medications Medication Instructions Recorded Confirmed Type nitroglycerin 0.4 mg sublingual 0.4 mg sublingual Q5M PRN Chest 01/27/20 02/23/22 History tablet Pain atorvastatin 40 mg tablet 40 mg PO QAM #90 tabs 08/31/21 02/23/22 Rx lisinopril 40 mg tablet 40 mg PO QAM #90 tabs 12/29/21 02/23/22 Rx dutasteride 0.5 mg capsule 0.5 mg PO QAM #90 caps 01/07/22 02/23/22 Rx (Avodart) metoprolol succinate 50 mg 50 mg PO QAM #90 tabs 01/11/22 02/23/22 Rx tablet,extended release 24 hr multivitamin (Multiple Vitamins 1 tab PO DAILY 02/02/22 02/23/22 History tablet) omeprazole 20 mg capsule,delayed 20 mg PO DAILY 02/02/22 02/23/22 History release acetaminophen 500 mg tablet 500 - 1,000 mg PO DIRECTED PRN 02/11/22 02/23/22 History (Tylenol Extra Strength) Pain [id number]-[id number] 450 unit 450 unit PO BID PRN Gi Upset 02/11/22 02/23/22 History disintegrating tablet (Beano) methylcellulose (laxative) 2 g PO DAILY 02/11/22 02/23/22 History (Citrucel Sugar Free oral powder) ondansetron 8 mg disintegrating 8 mg PO Q12H PRN TAKE PRIOR TO 02/11/22 02/23/22 History tablet CHEMO MED temozolomide 140 mg capsule 140 mg PO DAILY 02/11/22 02/23/22 History aspirin 81 mg tablet,delayed 81 mg PO QAM #30 tabs 02/17/22 02/23/22 Rx release dutasteride 0.5 mg capsule 1 ea PO QAM #30 caps 02/17/22 02/23/22 Rx prednisone 20 mg tablet See Rx Instructions .Route 02/17/22 02/23/22 Rx .COMPLEX #41 tabs sulfamethoxazole 800 2 tab PO Q6 #168 tabs 02/17/22 02/23/22 Rx mg-trimethoprim 160 mg tablet (Bactrim DS) tamsulosin 0.4 mg capsule 0.4 mg PO HS #30 caps 02/17/22 02/23/22 Rx Past Med/Surg History Medical History (Updated 02/25/22 @ 07:23 by Enio Azar MD) Atherosclerotic heart disease of [place] coronary artery without angina pectoris Bilateral hydronephrosis BPH (benign prostatic hyperplasia) BPH with obstruction/lower urinary tract symptoms CAD (coronary artery disease) inferior wall ND 1989 s/p PTCA of the CX artery Carotid stenosis, left hx surgery for Chest pain Diverticulosis Foreign body in ear GERD (gastroesophageal reflux disease) Glioblastoma 01/04/[address] Jordan History of COVID-21 MAR 2020 Hyperlipidemia Hypertension Myocardial Infarction 1989 Nasal congestion Paresthesia of left arm and leg Pneumonitis Post-void dribbling Prostate nodule Pure hypercholesterolemia Urinary frequency Urinary tract infection, acute Surgical History History of cataract surgery Bilateral History of colonoscopy History of craniotomy 01/04/22 History of cystoscopy History of left-sided carotid endarterectomy History of tooth extraction Hx of angioplasty 1989- no stents S/P bronchoscopy 02/15/22 Dr. Steve Duff at [facility]- Bronchoscopy Family History Father , 86yo Lung cancer Myocardial infarction Hypertension Mother , 92yo Pacemaker Hypertension Sister H/O carotid endarterectomy Stroke following surgery; Hypertension Dyslipidemia Sister Dyslipidemia Hypertension Melanoma Sister Hypertension Denies family history of Ovarian cancer Prostate cancer Breast cancer Colorectal cancer Social History Smoking Status: Former smoker Tobacco Type: Cigarettes packs per day: 0.5; Second Hand Exposure: No; Hx Alcohol Use: No Hx Substance Use: No Preferred Language: Hebrew Communication Ability: Effective Visual Impairment: No Limitations 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 Service Required: No Beliefs That Will Affect Care: None marital status: marital status details: Amrita Current Living Situation: Spouse current occupational status: retired How many Children do You have: 0 Feels Safe at Home: Yes Childhood Exposure to Second-Hand Smoke: Yes (father ) Diet Comment: tries to eat healthy caffeine: Yes (3 cups daily ) during the past year weight has: remained stable Dental Care, Regularly: Yes Physical Activity Frequency: Daily Seatbelt Use: always Sunscreen Use: No Assistive Devices: Cane and Glasses Review of Systems Review of Systems: The patient denies chest pain, palpitations, cough, lower extremity swelling, sore throat, fevers, chills, sweats, abdominal pain, pelvic pain, blood in urine or stool, dysuria, urinary frequency or urgency, dizziness, headache, memory loss, loss of consciousness, rash, abnormal bruising or bleeding, focal weakness, numbness or tingling in arms or legs, generalized arthralgias or myalgias, back or neck pain, or night sweats. The review of systems is otherwise negative other than for that already noted above, and at least 10 systems have been reviewed. Physical Exam Physical Exam: The patient is awake, alert and oriented 3, looks fatigued, normocephalic and atraumatic, lying in bed and in no acute distress. HEENT--PERRL, EOMI, mucous membranes and oropharynx normal. Neck--supple. No JVD. No bruits. Thyroid normal, trachea midline, no adenopathy. Heart--normal S1 and S2. No murmurs, rubs or gallops. Lungs--clear bilaterally, no respiratory distress, no accessory muscle use. Abdomen--normal bowel sounds and soft. Nontender. Nondistended, no hernias or masses, no organomegaly. Extremities--no cyanosis or clubbing. No edema. Dermatologic--normal skin turgor, normal color, no abnormal lymph nodes, no rash. Neurologic--cranial nerves II through XII grossly intact. Rheumatologic--normal range of motion. Psychiatric--normal affect. Results & Data Results & Data ([facility]) Vital Signs (Past 12 Hours) Vital Signs Temp Pulse Pulse Resp BP BP Pulse Ox 02/25/22 06:28 65 16 102/65 94 02/25/22 04:54 36.7 C 72 22 111/56 L 93 02/25/22 04:53 68 96 O2 Del Method O2 Flow Rate 02/25/22 06:28 Room Air 02/25/22 04:54 Nasal Cannula 2 02/25/22 04:53 Nasal Cannula 2 Laboratory Results Laboratory Results WBC 25.02 K/ul (4.8-10.8) H 02/25/22 04:00 RBC 4.08 M/uL (4.63-6.08) L 02/25/22 04:00 Hgb 13.0 g/dl (14.0-18.0) L 02/25/22 04:00 Hct 36.0 % (40.1-51.0) L 02/25/22 04:00 MCV 88.2 fL (80.0-100.0) 02/25/22 04:00 MCH 31.9 pg (25.0-34.0) 02/25/22 04:00 MCHC 36.1 g/dL (32.0-36.0) H 02/25/22 04:00 RDW Std Deviation 45.9 fL (36.4-46.3) 02/25/22 04:00 RDW Coeff of Nick 14.4 % (11.5-14.5) 02/25/22 04:00 Plt Count 430 K/uL (130-400) H 02/25/22 04:00 MPV 10.1 fL (9.4-12.4) 02/25/22 04:00 Immature Gran % (Auto) 3.6 % 02/25/22 04:00 Neut % (Auto) 71.8 % 02/25/22 04:00 Lymph % (Auto) 16.3 % 02/25/22 04:00 [place] % (Auto) 8.0 % 02/25/22 04:00 Eos % (Auto) 0.0 % 02/25/22 04:00 Baso % (Auto) 0.3 % 02/25/22 04:00 Neut # (Auto) 17.96 K/uL (1.4-6.5) H 02/25/22 04:00 Lymph # (Auto) 4.07 K/uL (1.2-3.4) H 02/25/22 04:00 [place]ley # (Auto) 2.00 K/uL (0.24-0.82) H 02/25/22 04:00 Eos # (Auto) 0.01 K/uL (0-0.50) 02/25/22 04:00 Baso # (Auto) 0.07 K/uL (0-0.2) 02/25/22 04:00 Immature Gran # (Auto) 0.91 K/uL (0.00-0.02) H 02/25/22 04:00 Sodium 111 mmol/L (136-145) L* 02/25/22 04:00 Potassium 6.0 mmol/L (3.5-5.1) H 02/25/22 04:00 Chloride 82 mmol/L (98-107) L 02/25/22 04:00 Carbon Dioxide 18 mmol/L (21-32) L 02/25/22 04:00 Anion Gap 11 (3-11) 02/25/22 04:00 BUN 46 mg/dl (6-23) H 02/25/22 04:00 Creatinine 1.96 mg/dl (0.6-1.4) H 02/25/22 04:00 Est Cr Clr Drug Dosing 31.3 ml/min 02/25/22 04:00 Est GFR ( Amer) 37.1 ml/min 02/25/22 04:00 Est GFR (Non-Af Amer) 32.0 ml/min 02/25/22 04:00 BUN/Creatinine Ratio 23.5 (10-20) H 02/25/22 04:00 Glucose 96 mg/dl (70-99(Fasting)) 02/25/22 04:00 Osmolality 255 mOsm/kg (280-300) L 02/25/22 04:00 Lactate 1.1 mmol/L (0.4-2.0) 02/25/22 05:48 Calcium 8.1 mg/dl (8.5-10.1) L 02/25/22 04:00 Magnesium 2.5 mg/dl (1.7-2.4) H 02/25/22 04:00 Total Bilirubin 0.7 mg/dl (0.2-1.0) 02/25/22 04:00 AST 38 U/L (13-39) 02/25/22 04:00 ALT 79 U/L (7-52) H 02/25/22 04:00 Alkaline Phosphatase 134 U/L (34-104) H 02/25/22 04:00 Troponin I High Sens 12.5 pg/ml (0-20) 02/25/22 04:00 Total Protein 6.7 gm/dl (6.0-8.3) 02/25/22 04:00 Albumin 3.1 gm/dl (3.4-5.0) L 02/25/22 04:00 Globulin 3.6 gm/dl (2.5-4.0) 02/25/22 04:00 Albumin/Globulin Ratio 0.9 (0.9-2) 02/25/22 04:00 Procalcitonin < 0.05 ng/ml (0-0.5) 02/25/22 04:00 TSH 2.519 uIu/ml (0.300-4.500) 02/25/22 04:00 Urine Color Yellow 02/25/22 05:30 Urine Appearance Clear (Clear) 02/25/22 05:30 Urine pH 7.0 (4.5-7.5) 02/25/22 05:30 Ur Specific [place] 1.018 (1.000-1.030) 02/25/22 05:30 Urine Protein Negative (Negative) 02/25/22 05:30 Urine Glucose (UA) Negative (Negative) 02/25/22 05:30 Urine Ketones Negative (Negative) 02/25/22 05:30 Urine Blood Negative (Negative) 02/25/22 05:30 Urine Nitrite Negative (Negative) 02/25/22 05:30 Urine Bilirubin Negative (Negative) 02/25/22 05:30 Urine Urobilinogen Negative (Negative) 02/25/22 05:30 Ur Leukocyte Esterase Negative (Negative) 02/25/22 05:30 Adenovirus (PCR) Not Detected (NotDetected) 02/25/22 05:30 B. pertussis DNA (PCR) Not Detected (NotDetected) 02/25/22 05:30 B.parapertussis DNA PCR Not Detected (NotDetected) 02/25/22 05:30 C. pneumoniae DNA (PCR) Not Detected (NotDetected) 02/25/22 05:30 Coronavirus OC43 (PCR) Not Detected (NotDetected) 02/25/22 05:30 Coronavirus HKU1 (PCR) Not Detected (NotDetected) 02/25/22 05:30 Coronavirus 229E (PCR) Not Detected (NotDetected) 02/25/22 05:30 SARS-CoV-2 (PCR) Not Detected (NotDetected) 02/25/22 05:30 Coronavirus NL63 (PCR) Not Detected (NotDetected) 02/25/22 05:30 Human Metapneumovir PCR Not Detected (NotDetected) 02/25/22 05:30 Influenza Type A (PCR) Not Detected (NotDetected) 02/25/22 05:30 Influenza Type B (PCR) Not Detected (NotDetected) 02/25/22 05:30 M. pneumoniae (PCR) Not Detected (NotDetected) 02/25/22 05:30 Parainfluenza 1 (PCR) Not Detected (NotDetected) 02/25/22 05:30 Parainfluenza 2 (PCR) Not Detected (NotDetected) 02/25/22 05:30 Parainfluenza 3 (PCR) Not Detected (NotDetected) 02/25/22 05:30 Parainfluenza 4 (PCR) Not Detected (NotDetected) 02/25/22 05:30 RSV (PCR) Not Detected (NotDetected) 02/25/22 05:30 Entero/Rhino (PCR) Not Detected (NotDetected) 02/25/22 05:30 Impressions Chest X-Ray 02/25/22 05:04 SINGLE VIEW CHEST CLINICAL HISTORY: Generalized weakness. FINDINGS: An AP, portable, upright chest radiograph is compared to study dated 02/16/2022. Correlation is made with chest CT dated 02/11/2022. The heart is mildly enlarged noting atherosclerotic calcification of the thoracic aorta. Emphysema and chronic interstitial thickening is similar to previous. Interstitial thickening and bilateral airspace opacities is similar to previous. No large pleural effusion or pneumothorax is seen. The skeletal structures are osteopenic. The bony thorax is grossly intact. IMPRESSION: 1. Cardiomegaly and emphysema. 2. Interstitial thickening and bilateral airspace opacities are similar to previous. This could represent congestive failure and/or pneumonia and clinical correlation will be required. ACT 112: Negative or not required by law. Electronically signed by: Joseph Duque M.D. 02/25/2022 7:11 AM Code Status & VTE Plan Code Status Full code VTE Prophylaxis Plan VTE Prophylaxis will be ordered: Yes (1) GERD (gastroesophageal reflux disease) Esophagitis presence: without esophagitis Qualified Code(s): K21.9 - Gastro- esophageal reflux disease without esophagitis
[2022-02-25] MEDS ORDERED: HYDROCORTISONE SOD SUCCINATE 100 MG/2 ML VIAL IV ONE (07:45)
[2022-02-25 08:34] LABS: Base Excess VBG -5.2 mEq/L; HCO3 VBG 19 mmol/L; Oxygen Saturation VBG < 60.0 %; PCO2 VBG 32 mmHg (38-50); PO2 VBG 32 mmHg; pH VBG 7.38 (7.36-7.41)
[2022-02-25] MEDS ORDERED: ALBUT/IPRATROP 3MG/0.5MG NEB 3 ML VIAL INH PRN (09:13)
[2022-02-25] MEDS ORDERED: NITROGLYCERIN SL 0.4 MG/TAB TAB SL PRN (09:13)
[2022-02-25] MEDS: ICU Protocol for HYPERglycemia SCH ×4 (09:43→21:09)
[2022-02-25 10:15] LABS: BUN Creatinine Ratio 23.9 (10-20); Calcium 7.5 mg/dl (8.5-10.1); Creatinine Clr Calc Pharmacy 37.3 ml/min; Est GFR (African American) 46.4 ml/min; Potassium 5.6 mmol/L (3.5-5.1)
--- NOTE | 2022-02-25 10:18 | Electrocardiogram Report ---
Test Reason : Blood Pressure : / mmHG Vent. Rate : 067 BPM Atrial Rate : 067 BPM P-R Int : 162 ms QRS Dur : 100 ms QT Int : 402 ms P-R-T Axes : 042 019 059 degrees QTc Int : 424 ms Poor data quality, interpretation may be adversely affected Normal sinus rhythm Minor Nonspecific ST abnormality Lateral leads Abnormal ECG When compared with ECG of 11-FEB-2022 16:26, Minor Nonspecific ST abnormality Lateral leads now present Confirmed by Kosta Land ([id number]) on 02/25/2022 10:18:16 AM Referred By: REFERRED SELF Confirmed By:Kosta Land
[2022-02-25] MEDS: ASPIRIN 81 MG ECTAB PO SCH (10:28)
[2022-02-25] MEDS: PANTOprazole 40 MG TAB PO SCH (10:28)
[2022-02-25] MEDS: FAMOTIDINE 20 MG in SYRINGE 3 ML IV SCH ×2 (10:28→21:09)
[2022-02-25] MEDS: DUTASTERIDE 0.5MG CAPSULE PO SCH (10:29)
--- NOTE | 2022-02-25 10:29 | Critical Care Consultation ---
Date of Consultation February 25, 2022 Assessment & Plan (1) Acute renal failure: (2) Hyponatremia: (3) Hyperkalemia: (4) Abnormal chest CT: Plan Impression: 76-year-old male with glioblastoma on chronic steroid therapy. Recently admitted to the hospital with pulmonary infiltrates and felt to have a potential syndrome consistent with PJP. PJP stains were negative as well as PCR however his galactomannan was positive. He presents now with hyponatremia weakness and hyperkalemia with acute kidney injury. Labs. Consistent with SIADH although the patient may be slightly volume depleted due to poor p.o. intake. He is hemodynamically stable with no new respiratory issues. Recommendations: 1. Neurologic: History of glioblastoma. No new neurological findings. Chemotherapy in the outpatient setting. No indication for repeat imaging currently. Will decrease his steroids down significantly. Decreased to 50 mg of hydrocortisone every 8 hours and can likely transition to oral in the short- term. See comments below. 2. Cardiovascular: Hemodynamically stable. May be slightly on the dry side. We will give an additional 1 L of normal saline at 80 cc an hour. See comments under electrolytes below. 3. Respiratory: Hypoxemic respiratory failure. Chest x-ray appears slightly better. We will follow-up with a noncontrast CT scan of the chest to see whether the parenchymal abnormalities have resolved. This does not appear to be consistent with PJP. No indication for additional Bactrim which may have been the offending agent and his electrolyte abnormalities. Additional recommendations will be based on follow-up imaging. 4. Renal: Hypoosmolar hyponatremia. Appears most consistent with SIADH although again may be slightly volume depleted. Every 4 hours BMPs. We will give an additional 1 L of NS now. Will follow his potassium levels. Depending on his follow-up BMP, will make a decision regarding hypertonic saline. Goal will be to raise him to about 115-120 in the next 24 hours. Follow electrolytes. Nephrology consultation has been requested. Do not think he requires tolvaptan currently but will defer to them. 5. Infectious disease: Recent treatment with steroids and Bactrim. PJP stains negative. Unclear significance of the elevated Fungitell in the setting. Check histo and blasto serologies as well as cocci and crypto. Hold antibiotics for now. 6. Heme-onc: History of glioblastoma. Holding chemotherapy for now. White co unt elevated, unclear if this is a leukemoid reaction related to steroids or not. Given his negative procalcitonin, I think holding antibiotics for now is reasonable. 7. Endocrine: At risk for relative adrenal insufficiency. Decrease hydrocortisone to 50 mg every 8 with plans to taper. May be able to transition to oral in relatively short-term. Anticipate taper over the next 5 to 7 days. A. GI: Advance diet as tolerated. Will continue to observe in the ICU pending improvement in his electrolyte abnormalities. Case was discussed with the bedside critical care nurse as well as with the patient at bedside. Questions were answered to the best my ability. He expressed understanding and is in agreement with plan as outlined. Patient is critically ill at this point time with significant possibility of clinical deterioration due to severe electrolyte abnormalities. A total of 47 minutes in critical care time was spent in evaluation management stabilization this patient. History of Present Illness Attending Physician: Keith Mckeon History of Present Illness Asked by hospitalist to assist in evaluation management this patient with hyponatremia and hyperkalemia with acute kidney injury. History is obtained from review electronic medical record as well as discussion with the patient. Patient is a 76-year-old male with history of glioblastoma. He was on chronic steroid therapy for cerebral edema and was admitted to the facility 02/11 through 02/17. He had diffuse pulmonary infiltrates and underwent bronchoscopy at that point time. No evidence of pulmonary hemorrhage. There was suspicion for PJP and the patient was placed on prednisone and Bactrim. His PJP stains were negative however Fungitell was elevated. Was recommended that he complete a course of Bactrim and steroids. He was discharged on oxygen. Patient presented to the emergency room today with complaints of weakness and poor oral intake. He states he has been getting chemotherapy and food does not taste very good. He states he is kept up with his water intake and has been drinking water on a fairly regular basis. He was seen in the emergency room noted to have multiple electrolyte abnormalities including hyponatremia and hyperkalemia with acute kidney injury. He received less than 1 L IV saline bolus and was admitted to the hospitalist service. Due to the need for frequent labs, was felt that he would be best served in the intensive care unit. Patient is hemodynamically stable. He denies any syncope or presyncope. He is not had fevers chills or night sweats. He did have over a liter of urine in his bladder on ultrasound and a Quiros catheter was placed on arrival to the ICU. He has been using oxygen at home. He is not coughing or producing significant phlegm. He denies chest pain or palpitations. No significant unintentional weight loss. Allergies Allergy/AdvReac Type Severity Reaction Status Date / Time No Known Allergies Allergy Unknown Verified 02/23/22 14:55 Home Medications Medication Instructions Recorded Confirmed Type nitroglycerin 0.4 mg sublingual 0.4 mg sublingual Q5M PRN Chest 01/27/20 1 04/25/21 History tablet Pain atorvastatin 40 mg tablet 40 mg PO QAM #90 tabs 08/31/21 02/23/22 Rx lisinopril 40 mg tablet 40 mg PO QAM #90 tabs 12/29/21 02/23/22 Rx dutasteride 0.5 mg capsule 0.5 mg PO QAM #90 caps 01/07/22 02/23/22 Rx (Avodart) metoprolol succinate 50 mg 50 mg PO QAM #90 tabs 01/11/22 02/23/22 Rx tablet,extended release 24 hr multivitamin (Multiple Vitamins 1 tab PO DAILY 02/02/22 02/23/22 History tablet) omeprazole 20 mg capsule,delayed 20 mg PO DAILY 02/02/22 02/23/22 History release acetaminophen 500 mg tablet 500 - 1,000 mg PO DIRECTED PRN 02/11/22 02/23/22 History (Tylenol Extra Strength) Pain deidr-b-bjrvvcsmgmtrv 450 unit 450 unit PO BID PRN Gi Upset 02/11/22 02/23/22 History disintegrating tablet (Beano) methylcellulose (laxative) 2 g PO DAILY 02/11/22 02/23/22 History (Citrucel Sugar Free oral powder) ondansetron 8 mg disintegrating 8 mg PO Q12H PRN TAKE PRIOR TO 02/11/22 02/23/22 History tablet CHEMO MED temozolomide 140 mg capsule 140 mg PO DAILY 02/11/22 02/23/22 History aspirin 81 mg tablet,delayed 81 mg PO QAM #30 tabs 02/17/22 02/23/22 Rx release dutasteride 0.5 mg capsule 1 ea PO QAM #30 caps 02/17/22 02/23/22 Rx prednisone 20 mg tablet See Rx Instructions .Route 02/17/22 02/23/22 Rx .COMPLEX #41 tabs sulfamethoxazole 800 2 tab PO Q6 #168 tabs 02/17/22 02/23/22 Rx mg-trimethoprim 160 mg tablet (Bactrim DS) tamsulosin 0.4 mg capsule 0.4 mg PO HS #30 caps 02/17/22 02/23/22 Rx Patient History Medical History Atherosclerotic heart disease of [place] coronary artery without angina pectoris Bilateral hydronephrosis BPH (benign prostatic hyperplasia) BPH with obstruction/lower urinary tract symptoms CAD (coronary artery disease) inferior wall MD 1989 s/p PTCA of the CX artery Carotid stenosis, left hx surgery for Chest pain Diverticulosis Foreign body in ear GERD (gastroesophageal reflux disease) Glioblastoma 01/04/[address] Jordan History of COVID-21 MAR 2020 Hyperlipidemia Hypertension Myocardial Infarction 1989 Nasal congestion Paresthesia of left arm and leg Pneumonitis Post-void dribbling Prostate nodule Pure hypercholesterolemia Urinary frequency Urinary tract infection, acute Surgical History History of cataract surgery Bilateral History of colonoscopy History of craniotomy 01/04/22 History of cystoscopy History of left-sided carotid endarterectomy History of tooth extraction Hx of angioplasty 1989- no stents S/P bronchoscopy 02/15/22 Dr. Steve Duff at [facility]- Bronchoscopy Family History Father , 86yo Lung cancer Myocardial infarction Hypertension Mother , 92yo Pacemaker Hypertension Sister H/O carotid endarterectomy Stroke following surgery; Hypertension Dyslipidemia Sister Dyslipidemia Hypertension Melanoma Sister Hypertension Denies family history of Ovarian cancer Prostate cancer Breast cancer Colorectal cancer Social History Smoking Status: Former smoker Tobacco Type: Cigarettes packs per day: 0.5; Second Hand Exposure: No; Do You Dip or Chew Tobacco: No; Tobacco Cessation Education Requested by Patient: No Hx Alcohol Use: No Hx Substance Use: No Preferred Language: Swedish Communication Ability: Effective Visual Impairment: No Limitations Hearing Ability: Use of Hearing Aid Business Taxes Specialist Required: No Beliefs That Will Affect Care: None marital status: marital status details: Amrita Current Living Situation: Spouse current occupational status: retired How many Children do You have: 0 Other Information That Helps Us Care for You: No Feels Safe at Home: Yes Safety Concerns: Feels Safe At This Time Childhood Exposure to Second-Hand Smoke: Yes (father ) Diet Comment: tries to eat healthy caffeine: Yes (3 cups daily ) during the past year weight has: remained stable Dental Care, Regularly: Yes Physical Activity Frequency: Daily Seatbelt Use: always Sunscreen Use: No Assistive Devices: Cane, Denture - Upper, Denture - Lower, Glasses, Hearing Aid - Left and Oxygen - Continuous Review of Systems Review of Systems: All systems reviewed & are unremarkable except as noted in Subjective Physical Exam Constitutional: WD/WN, vitals as above Neck: trachea midline, no thyromegaly Respiratory: normal respiratory effort, lungs clear to auscultation Cardiovascular: RRR, no murmur, no edema Gastrointestinal (Abdomen): normal bowel sounds, soft, nontender, no hepatosplenomegaly Musculoskeletal: Extremities: extremities normal to inspection Skin: no rashes, warm and dry Neurologic: Nonfocal exam Lymphatic: no cervical lymphadenopathy Results & Data Results & Data ([facility]) Vital Signs (Past 12 Hours) Vital Signs Temp Pulse Pulse Resp BP BP Pulse Ox 02/25/22 09:00 75 20 115/49 L 97 02/25/22 09:31 02/25/22 09:10 02/25/22 09:18 02/25/22 09:18 36.5 C 02/25/22 07:58 77 18 111/61 95 02/25/22 06:28 65 16 102/65 94 02/25/22 04:54 36.7 C 72 22 111/56 L 93 02/25/22 04:53 68 96 O2 Del Method O2 Flow Rate 02/25/22 09:00 Nasal Cannula 2 02/25/22 09:31 Nasal Cannula 2 02/25/22 09:10 Nasal Cannula 02/25/22 09:18 Nasal Cannula 2 02/25/22 09:18 02/25/22 07:58 Nasal Cannula 2 02/25/22 06:28 Room Air 02/25/22 04:54 Nasal Cannula 2 02/25/22 04:53 Nasal Cannula 2 Critical Care Results & Data Vital Signs (Past 12 Hours) Vital Signs Temp Pulse Pulse Resp BP BP Pulse Ox 02/25/22 09:00 75 20 115/49 L 97 02/25/22 09:31 02/25/22 09:10 02/25/22 09:18 02/25/22 09:18 36.5 C 02/25/22 07:58 77 18 111/61 95 02/25/22 06:28 65 16 102/65 94 02/25/22 04:54 36.7 C 72 22 111/56 L 93 02/25/22 04:53 68 96 O2 Del Method O2 Flow Rate 02/25/22 09:00 Nasal Cannula 2 02/25/22 09:31 Nasal Cannula 2 02/25/22 09:10 Nasal Cannula 02/25/22 09:18 Nasal Cannula 2 02/25/22 09:18 02/25/22 07:58 Nasal Cannula 2 02/25/22 06:28 Room Air 02/25/22 04:54 Nasal Cannula 2 02/25/22 04:53 Nasal Cannula 2 Lab & Micro Results (Past 24 Hours) RBC 4.08 M/uL (4.63-6.08) L 02/25/22 WBC 25.02 K/ul (4.8-10.8) H 02/25/22 Hgb 13.0 g/dl (14.0-18.0) L 02/25/22 Hct 36.0 % (40.1-51.0) L 02/25/22 MCV 88.2 fL (80.0-100.0) 02/25/22 MCH 31.9 pg (25.0-34.0) 02/25/22 MCHC 36.1 g/dL (32.0-36.0) H 02/25/22 RDW Standard Deviation 45.9 fL (36.4-46.3) 02/25/22 RDW Coefficient of Variation 14.4 % (11.5-14.5) 02/25/22 Plt Count 430 K/uL (130-400) H 02/25/22 MPV 10.1 fL (9.4-12.4) 02/25/22 Neutrophils (%) (Auto) 71.8 % 02/25/22 Lymphocytes (%) (Auto) 16.3 % 02/25/22 Monocytes # (Auto) 2.00 K/uL (0.24-0.82) H 02/25/22 Eosinophils # (Auto) 0.01 K/uL (0-0.50) 02/25/22 Immature Granulocyte % (Auto) 3.6 % 02/25/22 Neutrophils # (Auto) 17.96 K/uL (1.4-6.5) H 02/25/22 Lymphocytes # (Auto) 4.07 K/uL (1.2-3.4) H 02/25/22 Monocytes # (Auto) 2.00 K/uL (0.24-0.82) H 02/25/22 Eosinophils # (Auto) 0.01 K/uL (0-0.50) 02/25/22 Basophils # (Auto) 0.07 K/uL (0-0.2) 02/25/22 Immature Granulocyte # (Auto) 0.91 K/uL (0.00-0.02) H 02/25 Na 113 mmol/L (136-145) L* 02/25/22 K 5.6 mmol/L (3.5-5.1) H 02/25/22 Cl 87 mmol/L (98-107) L 02/25/22 CO2 19 mmol/L (21-32) L 02/25/22 Anion Gap 7 (3-11) 02/25/22 BUN 39 mg/dl (6-23) H 02/25/22 Creatinine 1.63 mg/dl (0.6-1.4) H 02/25/22 Estimated GFR ( Amer) 46.4 ml/min 02/25/22 Estimated GFR (Non-Af Amer) 40.0 ml/min 02/25/22 BUN/Creatinine Ratio 23.9 (10-20) H 02/25/22 Glu 68 mg/dl (70-99(Fasting)) L 02/25/22 Ca 7.5 mg/dl (8.5-10.1) L 02/25/22 Total Bilirubin 0.7 mg/dl (0.2-1.0) 02/25/22 AST 38 U/L (13-39) 02/25/22 ALT 79 U/L (7-52) H 02/25/22 Alkaline Phosphatase 134 U/L (34-104) H 02/25/22 TP 6.7 gm/dl (6.0-8.3) 02/25/22 Albumin 3.1 gm/dl (3.4-5.0) L 02/25/22 Globulin 3.6 gm/dl (2.5-4.0) 02/25/22 Albumin/Globulin Ratio 0.9 (0.9-2) 02/25/22 Mg 2.5 mg/dl (1.7-2.4) H 02/25/22 04:00 Calcium Level 7.5 mg/dl (8.5-10.1) L 02/25/22 09:27 Venous Blood pH 7.38 (7.36-7.41) 02/25/22 08:26 Venous Blood Partial Pressure CO2 32 mmHg (38-50) L 02/25/22 08 :26 Venous Blood Partial Pressure O2 32 mmHg 02/25/22 08:26 Venous Blood HCO3 19 mmol/L 02/25/22 08:26 Venous Blood Base Excess -5.2 mEq/L 02/25/22 08:26 Venous Blood Oxygen Saturation < 60.0 % 02/25/22 08:26 Diagnostic Findings (Past 24 Hours) Chest X-Ray 02/25/22 05:04 SINGLE VIEW CHEST CLINICAL HISTORY: Generalized weakness. FINDINGS: An AP, portable, upright chest radiograph is compared to study dated 02/16/2022. Correlation is made with chest CT dated 02/11/2022. The heart is mildly enlarged noting atherosclerotic calcification of the thoracic aorta. Emphysema and chronic interstitial thickening is similar to previous. Interstitial thickening and bilateral airspace opacities is similar to previous. No large pleural effusion or pneumothorax is seen. The skeletal structures are osteopenic. The bony thorax is grossly intact. IMPRESSION: 1. Cardiomegaly and emphysema. 2. Interstitial thickening and bilateral airspace opacities are similar to previous. This could represent congestive failure and/or pneumonia and clinical correlation will be required. ACT 112: Negative or not required by law. Electronically signed by: Joseph Duque M.D. 02/25/2022 7:11 AM I & O Totals 24 Hours 02/24/22 02/25/22 02/26/22 06:59 06:59 06:59 Intake Total 650 / 650 Output Total 1000 / 1000 Balance -350 / -350 Cumulative 02/25/22 04:24 thru 02/25/22 09:35 Intake Total 650 Output Total 1000 Balance -350 RT Ventilator Mngmt (Last Documented) Ventilator Ordered Settings Respiratory Rate 20 02/25/22 09:00 Ventilator - PT Measurements Respiratory Rate 20 Coding Level of Care Code Critical Care 1st 30-74 mins Diagnoses Acute renal failure N17.9 Hyponatremia E87.1 Hyperkalemia [address]87[address] R93.89
[2022-02-25] MEDS ORDERED: TEMOZOLOMIDE PO PRN (10:30)
[2022-02-25] MEDS ORDERED: TEMOZOLOMIDE PO SCH (10:30)
[2022-02-25] MEDS: ATORVASTATIN 40 MG TAB PO SCH (10:33)
[2022-02-25] MEDS ORDERED: STAT IV STA (11:04)
[2022-02-25] MEDS ORDERED: SODIUM CHLORIDE 3 % 100 ML IV ONE (11:04)
[2022-02-25 13:33] LABS: BUN Creatinine Ratio 21.3 (10-20); Calcium 7.6 mg/dl (8.5-10.1); Creatinine Clr Calc Pharmacy 40.5 ml/min; Est GFR (African American) 51.3 ml/min; Est GFR (Non-African American) 44.3 ml/min; Potassium 5.4 mmol/L (3.5-5.1)
--- NOTE | 2022-02-25 13:56 | Nephrology Consultation ---
Date of Consultation February 25, 2022 Assessment & Plan (1) Hyponatremia: (2) Hyperkalemia: (3) Acute renal failure: (4) Glioblastoma: Plan Acute hyponatremia with recent history of craniotomy and resection of glioblastoma, radiation and chemotherapy with alkylating agent leading to loss of appetite and poor p.o. intake. Also noted to have TANYA and hyperkalemia. Urine osmolality elevated. 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 intake. Can't not exclude possibility for direct effect from alkylating agent causing acute interstitial nephritis although less likely as urinalysis pretty unremarkable and overall clinical picture suggest volume depletion. Although serum sodium was quite low, there was no neurological symptom. Sodium was normal approximately a week ago suggesting this is all acute. --Received hypertonic saline 100 mL and repeat sodium was 115. agree with continuing on normal saline for now, monitor serum sodium q.4 hours and goal sodium in next 24 hours around 118-120 -- physical therapy for bilateral lower extremity weakness. -- recommend holding the chemotherapy for now and once clinically improve may need to reduce the dose if patient have significant anorexia and nausea Will follow Thank you for allowing me to participate in your patient's care. It was a pleasure to see Jose. History of Present Illness Reason for Consultation: Acute hyponatremia. Attending Physician: Keith Mckeon History of Present Illness Mr. Jose Bose is a 76-year-old male with past medical history significant for recent diagnosis of glioblastoma status post craniotomy and resection, radiation and chemotherapy admitted to the hospital with generalized weakness poor p.o. intake and noted to have acute hyponatremia, Hyperkalemia and TANYA. Nephrology consult was requested for management of above. EMR records are reviewed in detail during patient's visit. Jose present hospital with generalized weakness, loss of appetite and poor p.o. intake over last few days. He was diagnosed with glioblastoma in January and had resection at [facility] on 01/04/22 and then he was receiving radiation therapy and started on chemotherapy with Temozolomide ( alkylating agent). Since starting on chemotherapy he reports having poor p.o. intake because of loss of appetite and he was getting generally weak. also has been noticing progressive weakness in his bilateral lower extremity but no difficulty with moving his extremities and no loss of sensation. No loss of bowel or bladder control. He has been on chronic steroid therapy for cerebral edema and admitted at [facility] from 02/11/22 -02/17/22.During admission he was found to have diffuse pulmonary infiltrate and underwent box had bronchoscopy but there was no evidence of pulmonary hemorrhage or PJP and he was placed on prednisone and Bactrim. On admission yesterday he was noted to have acute hyponatremia, serum sodium was 111, prior sodium on 02/17/2022 was above 130. was also noted to have TANYA, creatinine was 2.0, potassium was 6.0. He reports voiding normally at home. Blood pressure has been relatively stable. No fever or chills. No shortness of breath or chest pain. In ER he was started with IV normal saline, repeat sodium slightly elevated at 113. Urine osmolality was 485. No history of hypothyroidism or adrenal insufficiency. He reports overall feeling much better this morning, denies any headache, confusion, visual changes. Denies dizziness or lightheadedness. Allergies Allergy/AdvReac Type Severity Reaction Status Date / Time No Known Allergies Allergy Unknown Verified 02/23/22 14:55 Home Medications Medication Instructions Recorded Confirmed Type nitroglycerin 0.4 mg sublingual 0.4 mg sublingual Q5M PRN Chest 01/27/20 02/23/22 History tablet Pain atorvastatin 40 mg tablet 40 mg PO QAM #90 tabs 08/31/21 02/23/22 Rx lisinopril 40 mg tablet 40 mg PO QAM #90 tabs 12/29/21 02/23/22 Rx dutasteride 0.5 mg capsule 0.5 mg PO QAM #90 caps 01/07/22 02/23/22 Rx (Avodart) metoprolol succinate 50 mg 50 mg PO QAM #90 tabs 01/11/22 02/23/22 Rx tablet,extended release 24 hr multivitamin (Multiple Vitamins 1 tab PO DAILY 02/02/22 02/23/22 History tablet) omeprazole 20 mg capsule,delayed 20 mg PO DAILY 02/02/22 02/23/22 History release acetaminophen 500 mg tablet 500 - 1,000 mg PO DIRECTED PRN 02/11/22 02/23/22 History (Tylenol Extra Strength) Pain [id number]-[id number] 450 unit 450 unit PO BID PRN Gi Upset 02/11/22 02/23/22 History disintegrating tablet (Beano) methylcellulose (laxative) 2 g PO DAILY 02/11/22 02/23/22 History (Citrucel Sugar Free oral powder) ondansetron 8 mg disintegrating 8 mg PO Q12H PRN TAKE PRIOR TO 02/11/22 02/23/22 History tablet CHEMO MED temozolomide 140 mg capsule 140 mg PO DAILY 02/11/22 02/23/22 History aspirin 81 mg tablet,delayed 81 mg PO QAM #30 tabs 02/17/22 02/23/22 Rx release dutasteride 0.5 mg capsule 1 ea PO QAM #30 caps 02/17/22 02/23/22 Rx prednisone 20 mg tablet See Rx Instructions .Route 02/17/22 02/23/22 Rx .COMPLEX #41 tabs sulfamethoxazole 800 2 tab PO Q6 #168 tabs 02/17/22 02/23/22 Rx mg-trimethoprim 160 mg tablet (Bactrim DS) tamsulosin 0.4 mg capsule 0.4 mg PO HS #30 caps 02/17/22 02/23/22 Rx Patient History Medical History Atherosclerotic heart disease of [place] coronary artery without angina pectoris Bilateral hydronephrosis BPH (benign prostatic hyperplasia) BPH with obstruction/lower urinary tract symptoms CAD (coronary artery disease) inferior wall [place] 1989 s/p PTCA of the CX artery Carotid stenosis, left hx surgery for Chest pain Diverticulosis Foreign body in ear GERD (gastroesophageal reflux disease) Glioblastoma 01/04/[address] Jordan History of COVID-21 MAR 2020 Hyperlipidemia Hypertension Myocardial Infarction 1989 Nasal congestion Paresthesia of left arm and leg Pneumonitis Post-void dribbling Prostate nodule Pure hypercholesterolemia Urinary frequency Urinary tract infection, acute Surgical History History of cataract surgery Bilateral History of colonoscopy History of craniotomy 01/04/22 History of cystoscopy History of left-sided carotid endarterectomy History of tooth extraction Hx of angioplasty 1989- no stents S/P bronchoscopy 02/15/22 Dr. Steve Duff at [facility]- Bronchoscopy Family History Father , 86yo Lung cancer Myocardial infarction Hypertension Mother , 92yo Pacemaker Hypertension Sister H/O carotid endarterectomy Stroke following surgery; Hypertension Dyslipidemia Sister Dyslipidemia Hypertension Melanoma Sister Hypertension Denies family history of Ovarian cancer Prostate cancer Breast cancer Colorectal cancer Social History Smoking Status: Former smoker Tobacco Type: Cigarettes packs per day: 0.5; Second Hand Exposure: No; Do You Dip or Chew Tobacco: No; Tobacco Cessation Education Requested by Patient: No Hx Alcohol Use: No Hx Substance Use: No Preferred Language: German Communication Ability: Effective Visual Impairment: No Limitations Hearing Ability: Use of Hearing Aid 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 Beliefs That Will Affect Care: None marital status: marital status details: Amrita Current Living Situation: Spouse current occupational status: retired How many Children do You have: 0 Other Information That Helps Us Care for You: No Feels Safe at Home: Yes Safety Concerns: Feels Safe At This Time Childhood Exposure to Second-Hand Smoke: Yes (father ) Diet Comment: tries to eat healthy caffeine: Yes (3 cups daily ) during the past year weight has: remained stable Dental Care, Regularly: Yes Physical Activity Frequency: Daily Seatbelt Use: always Sunscreen Use: No Assistive Devices: Cane, Denture - Upper, Denture - Lower, Glasses, Hearing Aid - Left and Oxygen - Continuous Review of Systems Review of Systems: Detailed review of system was otherwise unremarkable except mentioned above. Physical Exam Constitutional: WD/WN, vitals as above no acute distress Eyes: + anicteric sclerae ENMT: Ears: no hearing impairment Neck: normal visual inspection Respiratory: Auscultation: lungs clear to auscultation bilaterally Cardiovascular: RRR, no murmur, no edema Gastrointestinal (Abdomen): Inspection/Auscultation: abdomen normal to inspection Percussion/Palpation: abdomen soft; abdomen nontender Musculoskeletal: Extremities: extremities normal to inspection Skin: no rashes Neurologic: moves all extremities and + focal motor deficit ( Weakness in bilateral lower extremity); not confused Psychiatric: Orientation: alert and oriented x 3 Affect: euthymic affect Results & Data ([facility]) Vital Signs (Past 12 Hours) Vital Signs Temp Pulse Pulse Resp BP BP Pulse Ox 02/25/22 12:01 104/67 02/25/22 12:01 74 20 96 02/25/22 12:00 73 19 97 02/25/22 11:00 72 21 97 02/25/22 11:00 125/73 02/25/22 10:00 69 18 94 02/25/22 10:00 120/52 L 02/25/22 09:00 75 20 115/49 L 97 02/25/22 09:31 02/25/22 09:10 02/25/22 09:18 02/25/22 09:18 36.5 C 02/25/22 07:58 77 18 111/61 95 02/25/22 06:28 65 16 102/65 94 02/25/22 04:54 36.7 C 72 22 111/56 L 93 02/25/22 04:53 68 96 O2 Del Method O2 Flow Rate 02/25/22 12:01 02/25/22 12:01 02/25/22 12:00 02/25/22 11:00 02/25/22 11:00 02/25/22 10:00 02/25/22 10:00 02/25/22 09:00 Nasal Cannula 2 02/25/22 09:31 Nasal Cannula 2 02/25/22 09:10 Nasal Cannula 02/25/22 09:18 Nasal Cannula 2 02/25/22 09:18 02/25/22 07:58 Nasal Cannula 2 02/25/22 06:28 Room Air 02/25/22 04:54 Nasal Cannula 2 02/25/22 04:53 Nasal Cannula 2 PG Care Time/CCT Total # of Minutes Spent Total Time Spent with Patient: Total time spent is greater than 50% in coordination of care (as documented) at patient's floor/unit and/or counseling patient: Coding Level of Care Code 01750 Initial Inpt Care Lvl 3 Diagnoses Hyponatremia E87.1 Hyperkalemia E87.5 Acute renal failure N17.9 Glioblastoma C71.9
[2022-02-25] MEDS ORDERED: HYDROCORTISONE SOD 100 MG in SYRINGE 0 ML IV SCH (15:45)
[2022-02-25] MEDS: HYDROCORTISONE SOD 50 MG in SYRINGE 0 ML IV SCH ×2 (16:01→23:02)
[2022-02-25 18:18] LABS: BUN Creatinine Ratio 21.5 (10-20); Calcium 7.8 mg/dl (8.5-10.1); Creatinine Clr Calc Pharmacy 46.8 ml/min; Est GFR (Non-African American) 52.6 ml/min; Potassium 5.3 mmol/L (3.5-5.1)
--- NOTE | 2022-02-25 20:50 | CT Scan Report ---
CT chest diagnostic wo con CT DOSE: 320.87 mGy.cm CLINICAL HISTORY: 76 years-old Male with follow up pulm infiltrates. Follow-up study in a patient wi th bibasilar opacities TECHNIQUE: Multiaxial CT images of the chest were performed without contrast. A dose lowering techni que was utilized adhering to the principles of ALARA. COMPARISON: Chest radiograph of same day, CTA chest 02/11/2022 FINDINGS: No thyroid nodules are identified. No pathologically enlarged lymph nodes are identified. D ecreased attenuation of the cardiac blood pool suggestive of anemia. The heart is normal in size with out pericardial effusion. Extensive coronary artery calcifications. Atherosclerosis of the thoracic a lissa without aneurysm. No pneumothorax or pleural effusion. There is moderately improved aeration of the lungs compared to the 02/11/2022 study with persistent yet resolving intralobular septal thickeni ng with intermixed groundglass opacities within a multilobar multi segmental distribution. No new air space opacities are identified. Central airways are patent. Cholelithiasis. Subacute appearing splenic infarct redemonstrated. Hepatic steatosis. Unremarkable so ft tissues. Asymmetric left-sided gynecomastia. Probable sebaceous cyst of the subcutaneous presterna l tissues, 1.4 cm. Unremarkable soft tissues. No acute fracture. Degenerative changes of the spine an d shoulders. IMPRESSION: 1. Moderately improved aeration of the lungs compared to the 02/11/2022 exam with resolving intralobu lar septal thickening and intermixed groundglass opacities likely representing an infectious or infla mmatory pneumonitis. 2. No pleural effusion. 3. Subacute appearing splenic infarcts are again noted. 4. Cholelithiasis. 5. Hepatic steatosis. ACT 112: Negative or not required by law. Electronically signed by: Dev Orozco M.D. 02/25/2022 8:48 PM
[2022-02-25] MEDS: TAMSULOSIN HCL 0.4 MG CAP PO SCH (21:07)
[2022-02-25] MEDS: HEPARIN SOD 5,000 UNIT/0.5 ML VIAL SQ SCH (21:08)
[2022-02-25 22:33] LABS: Anion Gap 10 (3-11); BUN Creatinine Ratio 17.7 (10-20); Blood Urea Nitrogen 29 mg/dl (6-23); Calcium 7.8 mg/dl (8.5-10.1); Carbon Dioxide 14 mmol/L (21-32); Chloride 98 mmol/L (98-107); Creatinine Clr Calc Pharmacy 37.1 ml/min; Est GFR (African American) 46.1 ml/min; Est GFR (Non-African American) 39.7 ml/min; Glucose 128 mg/dl (70-99(Fasting)); Sodium 122 mmol/L (136-145)
[2022-02-25] MEDS ORDERED: DEXTROSE 5% 1,000 ML IV SCH (22:45)
[2022-02-26 03:39] LABS: Basophils # (auto) 0.04 K/uL (0-0.2); Basophils % (auto) 0.2 %; Eosinophils # (auto) 0.03 K/uL (0-0.50); Eosinophils % (auto) 0.1 %; Hemoglobin 11.6 g/dl (14.0-18.0); Immature Granulocytes # (auto) 0.56 K/uL (0.00-0.02); Immature Granulocytes % (auto) 2.7 %; Lymphocytes # (auto) 2.09 K/uL (1.2-3.4); Lymphocytes % (auto) 10.1 %; Mean Corpuscular Hemoglobin 31.7 pg (25.0-34.0); Mean Corpuscular Hgb Conc 35.2 g/dL (32.0-36.0); Mean Corpuscular Volume 90.2 fL (80.0-100.0); Mean Platelet Volume 9.7 fL (9.4-12.4); Monocytes # (auto) 1.58 K/uL (0.24-0.82); Monocytes % (auto) 7.7 %; Neutrophils # (auto) 16.35 K/uL (1.4-6.5); Neutrophils % (auto) 79.2 %; Platelet Count 346 K/uL (130-400); RDW Coefficient of Variation 14.7 % (11.5-14.5); RDW Standard Deviation 48.2 fL (36.4-46.3); Red Blood Count 3.66 M/uL (4.63-6.08); White Blood Count 20.65 K/ul (4.8-10.8)
[2022-02-26 03:51] LABS: INR 1.1 (0.9-1.1); Partial Thromboplastin Time 28.1 Seconds (21.0-31.0); Prothrombin Time 11.7 Seconds (9.0-12.0)
[2022-02-26 04:05] LABS: Albumin Globulin Ratio 0.9 (0.9-2); Albumin Level 2.7 gm/dl (3.4-5.0); BUN Creatinine Ratio 21.8 (10-20); Bilirubin,Total 0.7 mg/dl (0.2-1.0); Calcium 7.7 mg/dl (8.5-10.1); Creatinine Clr Calc Pharmacy 60.2 ml/min; Est GFR (African American) 82.8 ml/min; Est GFR (Non-African American) 71.4 ml/min; Globulin 2.9 gm/dl (2.5-4.0); Magnesium 2.1 mg/dl (1.7-2.4); Potassium 4.7 mmol/L (3.5-5.1); Total Protein 5.6 gm/dl (6.0-8.3)
[2022-02-26 07:26] LABS: BUN Creatinine Ratio 20.2 (10-20); Calcium 7.7 mg/dl (8.5-10.1); Creatinine Clr Calc Pharmacy 60.8 ml/min; Est GFR (African American) 84.8 ml/min; Est GFR (Non-African American) 73.2 ml/min; Potassium 4.7 mmol/L (3.5-5.1)
[2022-02-26] MEDS: ICU Protocol for HYPERglycemia SCH ×2 (07:28→09:03)
[2022-02-26] MEDS: ASPIRIN 81 MG ECTAB PO SCH (07:29)
[2022-02-26] MEDS: PANTOprazole 40 MG TAB PO SCH (07:29)
[2022-02-26] MEDS: HEPARIN SOD 5,000 UNIT/0.5 ML VIAL SQ SCH ×2 (07:29→20:59)
[2022-02-26] MEDS: ATORVASTATIN 40 MG TAB PO SCH (07:29)
[2022-02-26] MEDS: HYDROCORTISONE SOD 50 MG in SYRINGE 0 ML IV SCH ×3 (07:31→23:14)
--- NOTE | 2022-02-26 08:13 | Critical Care Progress Note ---
Date of Service February 26, 2022 Assessment & Plan (1) Acute renal failure: (2) Hyponatremia: (3) Hyperkalemia: (4) Abnormal chest CT: Plan Impression: 76-year-old male with glioblastoma on chronic steroid therapy. Recently admitted to the hospital with pulmonary infiltrates and felt to have a potential syndrome consistent with PJP. PJP stains were negative as well as PCR however his galactomannan was positive. He presents now with hyponatremia weakness and hyperkalemia with acute kidney injury. Labs. Consistent with SIADH although the patient may be slightly volume depleted due to poor p.o. intake. He is hemodynamically stable with no new respiratory issues. 24-hour events: Patient was admitted to the ICU. He received 100 mL of 3% saline as well as normal saline. His sodium is corrected appropriately. He has been hemodynamically stable. His follow-up CT scan demonstrated improvement/resolution of the patchy groundglass opacities noted previously. Recommendations: 1. Neurologic: History of glioblastoma. No new neurological findings. Chemotherapy in the outpatient setting. No indication for repeat imaging currently. Defer additional steroids to his medical oncology and neuro oncology service. 2. Cardiovascular: Hemodynamically stable. 3. Respiratory: Hypoxemic respiratory failure now resolved. His CT scan demonstrates significant improvement in the patchy bilateral groundglass opacities noted previously. He is completed a course of Bactrim and steroids. Unclear if this is PJP although with a negative PCR, seems to be less likely. This may have been a steroid responsive illness. Would continue to follow clinically at this point in time. 4. Renal: Hypoosmolar hyponatremia. Appears most consistent with SIADH sodium is improved at goal. He is currently on D5 water. Okay to stop IV fluids and continue to trend sodium. His acute kidney injury has resolved and his hyperkalemia is also resolved. 5. Infectious disease: Recent treatment with steroids and Bactrim. PJP stains negative. Unclear significance of the elevated Fungitell in the setting. Histo, cocci and crypto pending although the patient was not treated for these entities and steroids would be unlikely to make them resolve. Hold antibiotics for now. 6. Heme-onc: History of glioblastoma. Holding chemotherapy for now. White count elevated, unclear if this is a leukemoid reaction related to steroids or not. Given his negative procalcitonin, I think holding antibiotics for now is reasonable. 7. Endocrine: At risk for relative adrenal insufficiency. Currently on hydrocortisone 50 mg every 8 with plans to taper. May be able to transition to oral in relatively short-term. Anticipate taper over the next 5 to 7 days. Unclear if he needs long-term steroids for his glioblastoma. Defer to medical oncology 8. GI: Tolerating a diet Patient stable to transfer to the floor. Additional care per hospitalist. Critical care will sign off. Feel free to contact us with questions or concerns Admission and Anticipated Discharge Date Admission Date: February 25, 2022 Subjective Patient seen and examined. EMR reviewed. The patient is sitting up in a chair after breakfast. He is off oxygen. He feels well. His weakness is resolved. His sodium is correcting nicely. He has not had any issues overnight. Review of Systems Review of Systems: All systems reviewed & are unremarkable except as noted in Subjective Physical Exam Constitutional: WD/WN, vitals as above Neck: trachea midline, no thyromegaly Respiratory: normal respiratory effort, lungs clear to auscultation Cardiovascular: RRR, no murmur, no edema Gastrointestinal (Abdomen): normal bowel sounds, soft, nontender, no hepatosplenomegaly Musculoskeletal: Extremities: extremities normal to inspection Skin: no rashes, warm and dry Lymphatic: no cervical lymphadenopathy Results & Data Results & Data ([facility]) Vital Signs (Past 12 Hours) Vital Signs Temp Pulse Resp BP Pulse Ox O2 Del Method 02/26/22 07:43 36.5 C 02/26/22 07:00 70 16 95 Room Air 02/26/22 07:00 126/66 02/26/22 04:00 71 13 94 02/26/22 04:00 131/61 02/26/22 03:01 112/59 L 02/26/22 03:01 79 17 93 02/26/22 03:00 85 19 95 02/26/22 03:47 36.4 C L 02/26/22 02:00 69 13 94 02/26/22 02:00 129/56 L 02/26/22 01:00 70 13 94 02/26/22 01:00 98/49 L 02/26/22 00:00 68 02/26/22 00:00 79 15 94 02/25/22 23:00 72 25 H 93 02/25/22 23:00 102/66 02/25/22 22:01 139/62 02/25/22 22:01 74 14 95 02/25/22 22:00 76 15 93 02/25/22 21:01 102/58 L 02/25/22 21:01 79 22 94 02/25/22 21:00 77 22 94 02/26/22 00:00 36.5 C 02/25/22 20:33 122/61 02/25/22 20:33 76 18 94 02/25/22 20:30 37 C Critical Care Results & Data Vital Signs (Past 12 Hours) Vital Signs Temp Pulse Resp BP Pulse Ox O2 Del Method 02/26/22 07:43 36.5 C 02/26/22 07:00 70 16 95 Room Air 02/26/22 07:00 126/66 02/26/22 04:00 71 13 94 02/26/22 04:00 131/61 02/26/22 03:01 112/59 L 02/26/22 03:01 79 17 93 02/26/22 03:00 85 19 95 02/26/22 03:47 36.4 C L 02/26/22 02:00 69 13 94 02/26/22 02:00 129/56 L 02/26/22 01:00 70 13 94 02/26/22 01:00 98/49 L 02/26/22 00:00 68 02/26/22 00:00 79 15 94 02/25/22 23:00 72 25 H 93 02/25/22 23:00 102/66 02/25/22 22:01 139/62 02/25/22 22:01 74 14 95 02/25/22 22:00 76 15 93 02/25/22 21:01 102/58 L 02/25/22 21:01 79 22 94 02/25/22 21:00 77 22 94 02/26/22 00:00 36.5 C 02/25/22 20:33 122/61 02/25/22 20:33 76 18 94 02/25/22 20:30 37 C Lab & Micro Results (Past 24 Hours) RBC 3.66 M/uL (4.63-6.08) L 02/26/22 WBC 20.65 K/ul (4.8-10.8) H 02/26/22 Hgb 11.6 g/dl (14.0-18.0) L 02/26/22 Hct 33.0 % (40.1-51.0) L 02/26/22 MCV 90.2 fL (80.0-100.0) 02/26/22 MCH 31.7 pg (25.0-34.0) 02/26/22 MCHC 35.2 g/dL (32.0-36.0) 02/26/22 RDW Standard Deviation 48.2 fL (36.4-46.3) H 02/26/22 RDW Coefficient of Variation 14.7 % (11.5-14.5) H 02/26/22 Plt Count 346 K/uL (130-400) 02/26/22 MPV 9.7 fL (9.4-12.4) 02/26/22 Neutrophils (%) (Auto) 79.2 % 02/26/22 Lymphocytes (%) (Auto) 10.1 % 02/26/22 Monocytes # (Auto) 1.58 K/uL (0.24-0.82) H 02/26/22 Eosinophils # (Auto) 0.03 K/uL (0-0.50) 02/26/22 Immature Granulocyte % (Auto) 2.7 % 02/26/22 Neutrophils # (Auto) 16.35 K/uL (1.4-6.5) H 02/26/22 Lymphocytes # (Auto) 2.09 K/uL (1.2-3.4) 02/26/22 Monocytes # (Auto) 1.58 K/uL (0.24-0.82) H 02/26/22 Eosinophils # (Auto) 0.03 K/uL (0-0.50) 02/26/22 Basophils # (Auto) 0.04 K/uL (0-0.2) 02/26/22 Immature Granulocyte # (Auto) 0.56 K/uL (0.00-0.02) H 02/26 Na 122 mmol/L (136-145) L 02/26/22 K 4.7 mmol/L (3.5-5.1) 02/26/22 Cl 95 mmol/L (98-107) L 02/26/22 CO2 22 mmol/L (21-32) 02/26/22 Anion Gap 5 (3-11) 02/26/22 BUN 20 mg/dl (6-23) 02/26/22 Creatinine 0.99 mg/dl (0.6-1.4) 02/26/22 Estimated GFR ( Amer) 84.8 ml/min 02/26/22 Estimated GFR (Non-Af Amer) 73.2 ml/min 02/26/22 BUN/Creatinine Ratio 20.2 (10-20) H 02/26/22 Glu 105 mg/dl (70-99(Fasting)) H 02/26/22 Ca 7.7 mg/dl (8.5-10.1) L 02/26/22 Total Bilirubin 0.7 mg/dl (0.2-1.0) 02/26/22 AST 31 U/L (13-39) 02/26/22 ALT 61 U/L (7-52) H 02/26/22 Alkaline Phosphatase 106 U/L (34-104) H 02/26/22 TP 5.6 gm/dl (6.0-8.3) L 02/26/22 Albumin 2.7 gm/dl (3.4-5.0) L 02/26/22 Globulin 2.9 gm/dl (2.5-4.0) 02/26/22 Albumin/Globulin Ratio 0.9 (0.9-2) 02/26/22 Mg 2.1 mg/dl (1.7-2.4) 02/26/22 03:19 Calcium Level 7.7 mg/dl (8.5-10.1) L 02/26/22 06:51 Prothromb Time International Ratio 1.1 (0.9-1.1) 02/26/22 03:1 9 Venous Blood pH 7.38 (7.36-7.41) 02/25/22 08:26 Venous Blood Partial Pressure CO2 32 mmHg (38-50) L 02/25/22 08 :26 Venous Blood Partial Pressure O2 32 mmHg 02/25/22 08:26 Venous Blood HCO3 19 mmol/L 02/25/22 08:26 Venous Blood Base Excess -5.2 mEq/L 02/25/22 08:26 Venous Blood Oxygen Saturation < 60.0 % 02/25/22 08:26 Microbiology 02/25/22 05:15 Aerobic Blood Culture - Preliminary Blood No growth in Aerobic bottle after 24 hours. Anaerobic Blood Culture - Preliminary No growth in Anaerobic bottle after 24 hours. 02/25/22 05:17 Aerobic Blood Culture - Preliminary Blood No growth in Aerobic bottle after 24 hours. Anaerobic Blood Culture - Preliminary No growth in Anaerobic bottle after 24 hours. Diagnostic Findings (Past 24 Hours) Chest CT 02/25/22 10:16 CT chest diagnostic wo con CT DOSE: 320.87 mGy.cm CLINICAL HISTORY: 76 years-old Male with follow up pulm infiltrates. Follow-up study in a patient with bibasilar opacities TECHNIQUE: Multiaxial CT images of the chest were performed without contrast. A dose lowering technique was utilized adhering to the principles of ALARA. COMPARISON: Chest radiograph of same day, CTA chest 02/11/2022 FINDINGS: No thyroid nodules are identified. No pathologically enlarged lymph nodes are identified. Decreased attenuation of the cardiac blood pool suggestive of anemia. The heart is normal in size without pericardial effusion. Extensive coronary artery calcifications. Atherosclerosis of the thoracic aorta without aneurysm. No pneumothorax or pleural effusion. There is moderately improved a eration of the lungs compared to the 02/11/2022 study with persistent yet resolving intralobular septal thickening with intermixed groundglass opacities within a multilobar multi segmental distribution. No new airspace opacities are identified. Central airways are patent. Cholelithiasis. Subacute appearing splenic infarct redemonstrated. Hepatic steatosis. Unremarkable soft tissues. Asymmetric left-sided gynecomastia. Probable sebaceous cyst of the subcutaneous presternal tissues, 1.4 cm. Unremarkable soft tissues. No acute fracture. Degenerative changes of the spine and shoulders. IMPRESSION: 1. Moderately improved aeration of the lungs compared to the 02/11/2022 exam with resolving intralobular septal thickening and intermixed groundglass opacities likely representing an infectious or inflammatory pneumonitis. 2. No pleural effusion. 3. Subacute appearing splenic infarcts are again noted. 4. Cholelithiasis. 5. Hepatic steatosis. ACT 112: Negative or not required by law. Electronically signed by: Dev Orozco M.D. 02/25/2022 8:48 PM I & O Totals 24 Hours 02/25/22 02/26/22 02/27/22 06:59 06:59 06:59 Intake Total 1600 / 1600 240 / 240 Output Total 5725 / 5725 200 / 200 Balance -4125 / -4125 40 / 40 Cumulative 02/25/22 04:24 thru 02/26/22 07:43 Intake Total 1840 Output Total 5925 Balance -4085 RT Ventilator Mngmt (Last Documented) Ventilator Ordered Settings Respiratory Rate 16 02/26/22 07:00 Ventilator - PT Measurements Respiratory Rate 16 Coding Level of Care Code 99839 Subseq Hosp Care Lvl 3 Diagnoses Acute renal failure N17.9 Hyponatremia E87.1 Hyper[address]emia [address]87[address] R93.89
[2022-02-26] MEDS: DUTASTERIDE 0.5MG CAPSULE PO SCH (09:02)
[2022-02-26] MEDS: FAMOTIDINE 20 MG in SYRINGE 3 ML IV SCH ×2 (09:03→20:59)
[2022-02-26 11:19] LABS: BUN Creatinine Ratio 20.2 (10-20); Calcium 8.4 mg/dl (8.5-10.1); Creatinine Clr Calc Pharmacy 57.8 ml/min; Est GFR (African American) 79.9 ml/min; Est GFR (Non-African American) 68.9 ml/min; Potassium 5.3 mmol/L (3.5-5.1)
--- NOTE | 2022-02-26 11:57 | Nephrology Progress Note ---
Date of Service February 26, 2022 Assessment & Plan (1) Hyponatremia: (2) Hyperkalemia: (3) Acute renal failure: (4) Glioblastoma: Plan Acute hyponatremia with recent history of craniotomy and resection of glioblastoma, radiation and chemotherapy with alkylating agent leading to loss of appetite and poor p.o. intake. Also noted to have TANYA and hyperkalemia. Urine osmolality elevated. 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 intake. Can't not exclude possibility for direct effect from alkylating agent causing acute interstitial nephritis although less likely as urinalysis pretty unremarkable and overall clinical picture suggest volume depletion. Acute kidney injury resolved, creatinine down to 1.0. Sodium improved to 122, potassium again elevated at 5.3. --Monitor serum sodium q.6 hours, change diet to low-potassium diet. -- recommend holding the chemotherapy for now and once clinically improve may need to reduce the dose if patient have significant anorexia and nausea Will follow. Admission and Anticipated Discharge Date Admission Date: February 25, 2022 Nesha Garcia was seen this morning with his 's are at bedside. Overall he feels well, denies any shortness of breath or chest pain, continues to have poor appetite but has been trying to increase fluid intake. Blood pressure relatively low but asymptomatic and stable. Sodium improved to 122 this morning and staying relatively stable although overnight required some D5W as sodium corrected too rapidly. Review of Systems Review of Systems: Detailed review of system was otherwise unremarkable except mentioned above. Physical Exam Constitutional: WD/WN, vitals as above no acute distress Eyes: + anicteric sclerae ENMT: Ears: no hearing impairment Neck: normal visual inspection Respiratory: Auscultation: lungs clear to auscultation bilaterally Cardiovascular: RRR, no murmur, no edema Musculoskeletal: Extremities: extremities normal to inspection Skin: no rashes Neurologic: moves all extremities; not confused Psychiatric: Orientation: alert and oriented x 3 Affect: euthymic affect Results & Data ([facility]) Vital Signs (Past 12 Hours) Vital Signs Temp Pulse Pulse Resp BP BP Pulse Ox 02/26/22 11:10 37.1 C 75 19 109/59 L 97 02/26/22 09:00 80 15 134/88 94 02/26/22 08:00 89 19 93 02/26/22 07:43 36.5 C 02/26/22 07:00 70 16 95 02/26/22 07:00 126/66 02/26/22 04:00 71 13 94 02/26/22 04:00 131/61 02/26/22 03:01 112/59 L 02/26/22 03:01 79 17 93 02/26/22 03:00 85 19 95 02/26/22 03:47 36.4 C L 02/26/22 02:00 69 13 94 02/26/22 02:00 129/56 L 02/26/22 01:00 70 13 94 02/26/22 01:00 98/49 L 02/26/22 00:00 68 02/26/22 00:00 79 15 94 02/26/22 00:00 36.5 C O2 Del Method 02/26/22 11:10 Room Air 02/26/22 09:00 02/26/22 08:00 02/26/22 07:43 02/26/22 07:00 Room Air 02/26/22 07:00 02/26/22 04:00 02/26/22 04:00 02/26/22 03:01 02/26/22 03:01 02/26/22 03:00 02/26/22 03:47 02/26/22 02:00 02/26/22 02:00 02/26/22 01:00 02/26/22 01:00 02/26/22 00:00 02/26/22 00:00 02/26/22 00:00 PG Care Time/CCT Total # of Minutes Spent Total Time Spent with Patient: Total time spent is greater than 50% in coordination of care (as documented) at patient's floor/unit and/or counseling patient: Coding Level of Care Code 74492 Subseq Hosp Care Lvl 2 Diagnoses Hyponatremia E87.1 Hyperkalemia E87.5 Acute renal failure N17.9 Glioblastoma C71.9
[2022-02-26] MEDS: TAMSULOSIN HCL 0.4 MG CAP PO SCH (20:59)
--- NOTE | 2022-02-26 22:13 | Hospitalist Progress Note ---
Date of Service February 26, 2022 Assessment & Plan (1) Hyponatremia: Plan: Symptomatic hyponatremia- Sodium 111 on admission Improved to 122 on 02/25 appreciate input from nephro likely multifactorial from low volue intake, SIADH. fluid restriction, now thar TANYA resolved. BMP every 4 hours x24 (2) Acute renal failure: Plan: Creatinine 1.96 on admission with baseline 0.9 to Hypotonic hyponatremia Renal failure may be due to toxicity from chemotherapy as opposed to prerenal causes resolved (3) Hyperkalemia: Plan: Potassium 6.0 on admission Give 50 mils of D50, followed by 10 units of regular insulin IV Then repeat BMP for all electrolytes resolved (4) CAD (coronary artery disease): Plan: CAD/hypertension/history of NH- Hold all medications due to relatively low blood pressure: Lisinopril 40 mg daily, metoprolol succinate 50 mg daily. (5) Glioblastoma: Plan: Status post surgery in [facility] in January Present undergoing chemotherapy Placed on stress dose steroids, holding oral prednisone. Hydrocortisone 100 mg IV every 8 hours (6) BPH (benign prostatic hyperplasia): Plan: Continue dutasteride and tamsulosin (7) Hypertension: (8) Myocardial infarction: (9) GERD (gastroesophageal reflux disease): (10) Hypercholesteremia: (11) Carotid stenosis, left: (12) Hyperlipidemia: (13) Pneumonitis: Plan: recently discharged on bactrim for PCP. treatment almost completed, however patient now improved. Digital Account Executive reviewed lab findings, likely not PCP. will stop treatment course, Admission and Anticipated Discharge Date Admission Date: February 25, 2022 Subjective 76 yo male reports feeling slighty stronger today. He has no new complaints. His is at bedside and is updated. Review of Systems Review of Systems: All systems reviewed & are unremarkable except as noted in HPI & below Physical Exam Physical Exam: The patient is awake, alert and oriented 3, looks fatigued, normocephalic and atraumatic, lying in bed and in no acute distress. HEENT--PERRL, EOMI, mucous membranes and oropharynx normal. Neck--supple. No JVD. No bruits. Thyroid normal, trachea midline, no adenopathy. Heart--normal S1 and S2. No murmurs, rubs or gallops. Lungs--clear bilaterally, no respiratory distress, no accessory muscle use. Abdomen--normal bowel sounds and soft. Nontender. Nondistended, no hernias or masses, no organomegaly. Extremities--no cyanosis or clubbing. No edema. Dermatologic--normal skin turgor, normal color, no abnormal lymph nodes, no rash. Neurologic--cranial nerves II through XII grossly intact. Rheumatologic--normal range of motion. Psychiatric--normal affect. Results & Data Results & Data ([facility]) Vital Signs (Past 12 Hours) Vital Signs Temp Pulse Pulse Resp BP BP Pulse Ox 02/26/22 19:43 36.9 C 82 16 128/75 93 02/26/22 16:00 81 02/26/22 16:25 78 19 117/63 97 02/26/22 11:10 37.1 C 75 19 109/59 L 97 O2 Del Method 02/26/22 19:43 Room Air 02/26/22 16:00 02/26/22 16:25 Room Air 02/26/22 11:10 Room Air PG Care Time/CCT Total # of Minutes Spent Total Time Spent with Patient: Total time spent is greater than 50% in coordination of care (as documented) at patient's floor/unit and/or counseling patient: Coding Level of Care Code 03156 Subseq Hosp Care Lvl 3 Diagnoses Hyponatremia E87.1 Acute renal failure N17.9 Hyperkalemia E87.5 CAD (coronary artery disease) I25.10 Glioblastoma C71.9 BPH (benign prostatic hyperplasia) N40.0 Hypertension I10 Myocardial infarction I21.9 GERD (gastroesophageal reflux disease) K21.9 Esophagitis presence: without esophagitis Hypercholesteremia E78.00 Carotid stenosis, left I65.22 Hyperlipidemia E78.5 Pneumonitis J18.9 Time Spent (min) 35 (1) GERD (gastroesophageal reflux disease) Esophagitis presence: without esophagitis Qualified Code(s): K21.9 - Gastro- esophageal reflux disease without esophagitis
[2022-02-27 06:48] LABS: Basophils # (auto) 0.08 K/uL (0-0.2); Basophils % (auto) 0.4 %; Eosinophils # (auto) 0.03 K/uL (0-0.50); Eosinophils % (auto) 0.1 %; Hematocrit (blood only) 34.6 % (40.1-51.0); Hemoglobin 12.2 g/dl (14.0-18.0); Immature Granulocytes # (auto) 0.67 K/uL (0.00-0.02); Immature Granulocytes % (auto) 3.1 %; Lymphocytes # (auto) 3.49 K/uL (1.2-3.4); Lymphocytes % (auto) 16.2 %; Mean Corpuscular Hemoglobin 31.4 pg (25.0-34.0); Mean Corpuscular Hgb Conc 35.3 g/dL (32.0-36.0); Mean Corpuscular Volume 89.2 fL (80.0-100.0); Mean Platelet Volume 9.9 fL (9.4-12.4); Monocytes # (auto) 2.05 K/uL (0.24-0.82); Monocytes % (auto) 9.5 %; Neutrophils # (auto) 15.27 K/uL (1.4-6.5); Neutrophils % (auto) 70.7 %; Platelet Count 355 K/uL (130-400); RDW Coefficient of Variation 14.9 % (11.5-14.5); RDW Standard Deviation 47.8 fL (36.4-46.3); Red Blood Count 3.88 M/uL (4.63-6.08); White Blood Count 21.59 K/ul (4.8-10.8)
[2022-02-27 07:12] LABS: Albumin Globulin Ratio 0.9 (0.9-2); Albumin Level 2.9 gm/dl (3.4-5.0); Bilirubin,Total 0.7 mg/dl (0.2-1.0); Calcium 8.3 mg/dl (8.5-10.1); Creatinine Clr Calc Pharmacy 81.7 ml/min; Est GFR (African American) 103.7 ml/min; Est GFR (Non-African American) 89.5 ml/min; Globulin 3.2 gm/dl (2.5-4.0); Magnesium 1.8 mg/dl (1.7-2.4); Potassium 4.9 mmol/L (3.5-5.1); Total Protein 6.1 gm/dl (6.0-8.3)
[2022-02-27 07:24] LABS: Partial Thromboplastin Ratio 1.1; Prothrombin Time 10.9 Seconds (9.0-12.0)
[2022-02-27] MEDS: HYDROCORTISONE SOD 50 MG in SYRINGE 0 ML IV SCH (08:19)
[2022-02-27] MEDS: PANTOprazole 40 MG TAB PO SCH (08:19)
[2022-02-27] MEDS: ATORVASTATIN 40 MG TAB PO SCH (08:19)
[2022-02-27] MEDS: ASPIRIN 81 MG ECTAB PO SCH (08:19)
[2022-02-27] MEDS: HEPARIN SOD 5,000 UNIT/0.5 ML VIAL SQ SCH ×2 (08:20→20:23)
[2022-02-27] MEDS: DUTASTERIDE 0.5MG CAPSULE PO SCH (09:04)
[2022-02-27] MEDS: FAMOTIDINE 20 MG in SYRINGE 3 ML IV SCH ×2 (09:04→20:23)
--- NOTE | 2022-02-27 10:47 | Hospitalist Progress Note ---
Date of Service February 27, 2022 Assessment & Plan (1) Hyponatremia: Plan: Symptomatic hyponatremia- Sodium 111 on admission Suspected SIADH Appreciate nephrology management and agree with starting on sodium chloride 1 g twice daily today. Will also change fluid restriction to 1 L from 1.5 L (2) Acute renal failure: Plan: Creatinine 1.96 on admission with baseline 0.9 to Hypotonic hyponatremia Renal failure may be due to toxicity from chemotherapy as opposed to prerenal causes resolved (3) Hyperkalemia: Plan: Potassium 6.0 on admission Potassium 4.9 this morning. Will remove low-potassium diet in order to enable better nutrition resolved (4) CAD (coronary artery disease): Plan: CAD/hypertension/history of MD- We will restart his metoprolol succinate tomorrow Continue to hold lisinopril (5) Glioblastoma: Plan: Status post surgery in [facility] in January Present undergoing chemotherapy Placed on stress dose steroids, holding oral prednisone. Decrease hydrocortisone to 25 mg IV twice daily (6) BPH (benign prostatic hyperplasia): Plan: Continue dutasteride and tamsulosin (7) Hypertension: (8) GERD (gastroesophageal reflux disease): (9) Hypercholesteremia: (10) Carotid stenosis, left: (11) Hyperlipidemia: (12) Pneumonitis: Plan: recently discharged on bactrim for PCP. treatment almost completed however patient now improved. Electronic Security Specialist reviewed lab findings, likely not PCP. will stop treatment course, Plan VTE Prophylaxis - heparin 5000 units SQ BID Diet - liberalize diet to regular and will monitor potassium Disposition - continue on PCU pending improvement in Na Admission and Anticipated Discharge Date Admission Date: February 25, 2022 Subjective No nausea, vomiting, fatigue, dizziness, gait disturbance, forgetfulness, confusion, muscle cramps or shortness of breath. Anxious for discharge to get back on chemoradiation. Review of Systems Review of Systems: All systems reviewed & are unremarkable except as noted in Subjective Physical Exam Constitutional: WD/WN, vitals as above no acute distress Eyes: + anicteric sclerae; normal pupil size Respiratory: normal respiratory effort, lungs clear to auscultation Cardiovascular: RRR, no murmur, no edema Gastrointestinal (Abdomen): normal bowel sounds, soft, nontender, no hepatosplenomegaly Musculoskeletal: Extremities: extremities normal to inspection Skin: no rashes, warm and dry Neurologic: moves all extremities and awake; not confused Psychiatric: A+Ox3, euthymic affect Results & Data Results & Data ([facility]) Vital Signs (Past 12 Hours) Vital Signs Temp Pulse Pulse Resp BP BP Pulse Ox 02/27/22 08:00 81 02/27/22 07:42 36.5 C 102 H 16 122/69 97 02/27/22 03:00 36.6 C 80 18 102/60 96 02/26/22 23:19 36.7 C 82 16 111/68 93 O2 Del Method 02/27/22 08:00 02/27/22 07:42 Room Air 02/27/22 03:00 Room Air 02/26/22 23:19 Room Air PG Care Time/CCT Total # of Minutes Spent Total Time Spent with Patient: Total time spent is greater than 50% in coordination of care (as documented) at patient's floor/unit and/or counseling patient: Coding Level of Care Code 80383 Subseq Hosp Care Lvl 2 Diagnoses Hyponatremia E87.1 Acute renal failure N17.9 Hyperkalemia E87.5 CAD (coronary artery disease) I25.10 Glioblastoma C71.9 BPH (benign prostatic hyperplasia) N40.0 Hypertension I10 GERD (gastroesophageal reflux disease) K21.9 Esophagitis presence: without esophagitis Hypercholesteremia E78.00 Carotid stenosis, left I65.22 Hyperlipidemia E78.5 Pneumonitis J18.9 (1) GERD (gastroesophageal reflux disease) Esophagitis presence: without esophagitis Qualified Code(s): K21.9 - Gastro- esophageal reflux disease without esophagitis
--- NOTE | 2022-02-27 12:36 | Nephrology Progress Note ---
Date of Service February 27, 2022 Assessment & Plan (1) Hyponatremia: (2) Hyperkalemia: (3) Acute renal failure: (4) Glioblastoma: Plan Acute hyponatremia with recent history of craniotomy and resection of glioblastoma, radiation and chemotherapy with alkylating agent leading to loss of appetite and poor p.o. intake. Also noted to have TANYA and hyperkalemia. Urine osmolality elevated. 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 intake. Can't not exclude possibility for direct effect from alkylating agent causing acute interstitial nephritis although less likely as urinalysis pretty unremarkable and overall clinical picture suggest volume depletion. Acute kidney injury resolved, creatinine down to 1.0. Sodium improved to 124, potassium normal. -- start on oral salt tablet 1 g twice a day, Monitor serum sodium q.12 hours. -- please contact with Radiation Oncology to arrange for his next radiation treatment while he is inpatient, currently scheduled for 10:00 a.m. tomorrow -- recommend holding the chemotherapy for now and once clinically improve may need to reduce the dose if patient have significant anorexia and nausea Will follow. Admission and Anticipated Discharge Date Admission Date: February 25, 2022 Nesha Garcia was seen this morning with his 's are at bedside. Overall he feels well, denies any shortness of breath or chest pain, continues to have poor appetite but has been trying to increase fluid intake. Blood pressure stable. Sodium improved to 124 this morning. participated with physical therapy this morning and did well. He is due for his next radiation therapy tomorrow morning at 10:00 a.m.. Review of Systems Review of Systems: Detailed review of system was otherwise unremarkable except mentioned above. Physical Exam Constitutional: WD/WN, vitals as above no acute distress Eyes: + anicteric sclerae ENMT: Ears: no hearing impairment Neck: normal visual inspection Respiratory: Auscultation: lungs clear to auscultation bilaterally Cardiovascular: RRR, no murmur, no edema Musculoskeletal: Extremities: extremities normal to inspection Skin: no rashes Neurologic: moves all extremities; not confused Psychiatric: Orientation: alert and oriented x 3 Affect: euthymic affect Results & Data ([facility]) Vital Signs (Past 12 Hours) Vital Signs Temp Pulse Pulse Resp BP BP Pulse Ox 02/27/22 12:03 157/84 H 11/27/22 11:57 36.7 C 77 16 164/109 H 96 02/27/22 08:00 81 02/27/22 07:42 36.5 C 102 H 16 122/69 97 02/27/22 03:00 36.6 C 80 18 102/60 96 O2 Del Method 02/27/22 12:03 02/27/22 11:57 Room Air 02/27/22 08:00 02/27/22 07:42 Room Air 02/27/22 03:00 Room Air PG Care Time/CCT Total # of Minutes Spent Total Time Spent with Patient: Total time spent is greater than 50% in coordination of care (as documented) at patient's floor/unit and/or counseling patient: Coding Level of Care Code 25153 Subseq Hosp Care Lvl 3 Diagnoses Hyponatremia E87.1 Hyperkalemia E87.5 Acute renal failure N17.9 Glioblastoma C71.9
[2022-02-27] MEDS: SODIUM CHLORIDE 1 GM TABLET PO SCH ×2 (13:28→20:24)
[2022-02-27] MEDS: HYDROCORTISONE SOD 25 MG in SYRINGE 0 ML IV SCH (20:24)
[2022-02-27] MEDS: TAMSULOSIN HCL 0.4 MG CAP PO SCH (20:24)
[2022-02-28 07:37] LABS: Basophils # (auto) 0.06 K/uL (0-0.2); Basophils % (auto) 0.3 %; Immature Granulocytes % (auto) 3.4 %; Lymphocytes # (auto) 4.48 K/uL (1.2-3.4); Lymphocytes % (auto) 21.9 %; Mean Corpuscular Hemoglobin 31.5 pg (25.0-34.0); Mean Corpuscular Hgb Conc 34.4 g/dL (32.0-36.0); Mean Corpuscular Volume 91.7 fL (80.0-100.0); Monocytes # (auto) 1.88 K/uL (0.24-0.82); Monocytes % (auto) 9.2 %; Neutrophils # (auto) 13.11 K/uL (1.4-6.5); Neutrophils % (auto) 64.2 %; Platelet Count 339 K/uL (130-400); RDW Coefficient of Variation 14.9 % (11.5-14.5); RDW Standard Deviation 49.5 fL (36.4-46.3); Red Blood Count 3.49 M/uL (4.63-6.08); White Blood Count 20.43 K/ul (4.8-10.8)
[2022-02-28 07:49] LABS: Partial Thromboplastin Ratio 1.4; Partial Thromboplastin Time 37.6 Seconds (21.0-31.0)
[2022-02-28 08:00] LABS: Albumin Globulin Ratio 0.9 (0.9-2); Albumin Level 2.7 gm/dl (3.4-5.0); BUN Creatinine Ratio 46.8 (10-20); Bilirubin,Total 0.6 mg/dl (0.2-1.0); Calcium 7.9 mg/dl (8.5-10.1); Creatinine Clr Calc Pharmacy 96.7 ml/min; Est GFR (African American) 110.9 ml/min; Est GFR (Non-African American) 95.7 ml/min; Globulin 2.9 gm/dl (2.5-4.0); Magnesium 1.7 mg/dl (1.7-2.4); Potassium 4.3 mmol/L (3.5-5.1); Total Protein 5.6 gm/dl (6.0-8.3)
--- NOTE | 2022-02-28 08:38 | Radiation OncologyConsultation ---
Date of Consultation February 28, 2022 Assessment & Plan (1) Glioblastoma: This is a 76-year-old gentleman with history of GBM. Has been undergoing radiation and chemotherapy. Chemotherapy comprised of Temodar. His treatment in regards to the chemotherapy has been held due to the changes in electrolytes. Last dose of Temodar was last Monday. Patient would like to proceed with his radiation treatments. He had been recently hospitalized for pneumonia. He was discharged home and developed generalized weakness. He had poor oral intake. He presented to the emergency room and was found to have a dehydration, hyponatremia and hyperkalemia. He was admitted for cardiac monitoring. Sodium has steadily improved. The potassium is now within normal limits. He had a chest CT which shows that he has improvement in the pneumonia. He has been ambulating within his hospital room. He has no difficulty with leg weakness currently. We will recommend restarting radiation therapy today. Patient is in agreement with this plan. Plan ATTENDING ADDENDUM: I have reviewed the patient's current status during this inpatient admission. We have reviewed all of his records. I agree with the note created by the midlevel provider. The patient is currently under treatment for chemoradiation therapy for glioblastoma. We will defer further management regarding temozolomide to the patient's oncologist. In the interim, we will continue with external beam radiation therapy while the patient is admitted and continue radiation therapy in the outpatient setting. The patient was also seen for on treatment visit today as well. History of Present Illness Reason for Consultation: To discuss continuation of radiation therapy. Requesting Physician: Romain Whitmore MD Attending Physician: Romain Whitmore MD History of Present Illness Mr. Bose is a 76-year-old male with a history of remote [place] in 1989 who was found to have a right temporal enhancing lesion. He presented with a relatively short history of dizziness 12/15/2021. Noncontrast CT of the head showed concerns for mass defect in the right temporal region with follow-up MRI recommended. 12/15/2021. MRI of the brain revealed a 2.9 x 2.4 cm right temporal ring- enhancing lesion with local mass-effect and a small amount of surrounding vasogenic edema. The lesion demonstrated avid irregular rim enhancement with a small dural tail. No bony invasion is seen. There is mild mass-effect upon the left lateral ventricle without significant midline shift. A small amount of intralesional susceptibility artifact is seen and could represent hemorrhage. 12/22/2021. The patient was seen at the [facility] outpatient neurosurgery brain tumor clinic for evaluation and recommendations of treatment. They recommended complete metastatic work-up including CT of the chest abdomen and pelvis. They recommended temporal craniotomy and gross tumor resection. 01/03/2022. Patient undergoes CT of the chest abdomen and pelvis with contrast. This showed no primary lesions or evidence of metastatic disease. 01/04/2022. Patient undergoes a right temporal craniotomy by Dr. Jordan. Frozen section confirmed high-grade glioma. Pathology confirmed a glioblastoma WHO grade 4. Staining for mutant IDH 1 (R132H)-wild-type is negative. Some p53 positive tumor cells were seen. Ki-67 index 15%. [facility] [id number]. 01/25/2022. He return for follow-up with Dr. Ruelas (neuro oncology) and was recovering well from his surgery and subsequent dexamethasone taper. They discussed multidisciplinary approach of management which included the completed resection followed by involved field radiation with concurrent low-dose temozolomide followed by adjuvant temozolomide. He reviewed with the patient potential risks and side effects of combined modality therapy and arranged for referral to medical oncology and radiation oncology. 02/02/2022. Patient was seen in radiation oncology for evaluation and discussion of the role of combined chemoradiation as treatment for his newly diagnosed and resected glioblastoma. 02/08/2022. Patient completed his CT simulation. Treatment plans had been completed and he was going to start radiation therapy 02/14/2022. He would also be taking Temodar. 02/11/2022. He had been seen by the primary care provider due to a cough and malaise. He was having some shortness of breath on exertion. He has pulse oximetry was found to be 75% at the office. He was advised emergency room evaluation. He was admitted. Suspected pneumocystis pneumonia. 02/15/2022. Status post bronchoscopy with lavage. Right lower lobe endoscopic biopsy. Negative for malignancy. Lung parenchyma with fibrin globules and features of early organizing pneumonia. Bronchial lavage. Atypical cells present. 02/17/2022. Discharge. 02/25/2022. Development of leg weakness. Poor intake of fluids as well as nutrition. Emergency room evaluation and finding of hyponatremia, acute renal failure, hyperkalemia. Patient was admitted for further evaluation and treatment. 02/28/2022. Radiation oncology consultation. Patient has had steady improvement. Increased dietary intake. The sodium has been improving. This had been 111 at admission. It is now at 127. Potassium has been corrected. Patient feels greatly improved. Allergies Allergy/AdvReac Type Severity Reaction Status Date / Time No Known Allergies Allergy Unknown Verified 02/23/22 14:55 Home Medications Medication Instructions Recorded Confirmed Type nitroglycerin 0.4 mg sublingual 0.4 mg sublingual Q5M PRN Chest 01/27/20 02/23/22 History tablet Pain atorvastatin 40 mg tablet 40 mg PO QAM #90 tabs 08/31/21 02/23/22 Rx lisinopril 40 mg tablet 40 mg PO QAM #90 tabs 12/29/21 02/23/22 Rx dutasteride 0.5 mg capsule 0.5 mg PO QAM #90 caps 01/07/22 02/23/22 Rx (Avodart) metoprolol succinate 50 mg 50 mg PO QAM #90 tabs 01/11/22 02/23/22 Rx tablet,extended release 24 hr multivitamin (Multiple Vitamins 1 tab PO DAILY 02/02/22 02/23/22 History tablet) omeprazole 20 mg capsule,delayed 20 mg PO DAILY 02/02/22 02/23/22 History release acetaminophen 500 mg tablet 500 - 1,000 mg PO DIRECTED PRN 02/11/22 02/23/22 History (Tylenol Extra Strength) Pain bevoj-i-uuxpysrpthgth 450 unit 450 unit PO BID PRN Gi Upset 02/11/22 02/23/22 History disintegrating tablet (Beano) methylcellulose (laxative) 2 g PO DAILY 02/11/22 02/23/22 History (Citrucel Sugar Free oral powder) ondansetron 8 mg disintegrating 8 mg PO Q12H PRN TAKE PRIOR TO 02/11/22 02/23/22 History tablet CHEMO MED temozolomide 140 mg capsule 140 mg PO DAILY 02/11/22 02/23/22 History aspirin 81 mg tablet,delayed 81 mg PO QAM #30 tabs 02/17/22 02/23/22 Rx release dutasteride 0.5 mg capsule 1 ea PO QAM #30 caps 02/17/22 02/23/22 Rx prednisone 20 mg tablet See Rx Instructions .Route 02/17/22 02/23/22 Rx .COMPLEX #41 tabs sulfamethoxazole 800 2 tab PO Q6 #168 tabs 02/17/22 02/23/22 Rx mg-trimethoprim 160 mg tablet (Bactrim DS) tamsulosin 0.4 mg capsule 0.4 mg PO HS #30 caps 02/17/22 02/23/22 Rx Patient History Medical History (Updated 02/28/22 @ 08:31 by Pennie Rodriguez PA-C) Abnormal chest CT Atherosclerotic heart disease of [place] coronary artery without angina pectoris Bilateral hydronephrosis BPH (benign prostatic hyperplasia) BPH with obstruction/lower urinary tract symptoms CAD (coronary artery disease) inferior wall IN 1989 s/p PTCA of the CX artery Carotid stenosis, left hx surgery for Chest pain Diverticulosis Ex-smoker Foreign body in ear GERD (gastroesophageal reflux disease) GERD (gastroesophageal reflux disease) Glioblastoma 01/04/[address] Jordan History of COVID-21 MAR 2020 Hyperlipidemia Hypertension Myocardial Infarction 1989 Nasal congestion Paresthesia of left arm and leg Pneumonitis Post-void dribbling Prostate nodule Pure hypercholesterolemia Urinary frequency Urinary retention Urinary tract infection, acute Surgical History History of cataract surgery Bilateral History of colonoscopy History of craniotomy 01/04/22 History of cystoscopy History of left-sided carotid endarterectomy History of tooth extraction Hx of angioplasty 1989- no stents S/P bronchoscopy 02/15/22 Dr. Steve Duff at [facility]- Bronchoscopy Family History Father , 86yo Lung cancer Myocardial infarction Hypertension Mother , 92yo Pacemaker Hypertension Sister H/O carotid endarterectomy Stroke following surgery; Hypertension Dyslipidemia Sister Dyslipidemia Hypertension Melanoma Sister Hypertension Denies family history of Ovarian cancer Prostate cancer Breast cancer Colorectal cancer Social History Smoking Status: Former smoker Tobacco Type: Cigarettes packs per day: 0.5; Smoking End Date: 1989; Second Hand Exposure: No; Hx Alcohol Use: No Hx Substance Use: No Preferred Language: Maltese Communication Ability: Effective Visual Impairment: No Limitations Hearing Ability: Use of Hearing Aid Laminator Required: No Beliefs That Will Affect Care: None marital status: marital status details: Amrita Current Living Situation: Spouse current occupational status: retired How many Children do You have: 0 Other Information That Helps Us Care for You: No Feels Safe at Home: Yes Safety Concerns: Feels Safe At This Time Childhood Exposure to Second-Hand Smoke: Yes (father ) Diet Comment: tries to eat healthy caffeine: Yes (3 cups daily ) during the past year weight has: remained stable Dental Care, Regularly: Yes Physical Activity Frequency: Daily Seatbelt Use: always Sunscreen Use: No Assistive Devices: Cane and Oxygen - at Night Review of Systems Review of Systems: 13 point review of system completed. All findings in the history of present illness. Physical Exam Constitutional: WD/WN, vitals as above Eyes: PERRL, conjunctivae normal, anicteric sclerae ENMT: external ear and nose normal, oropharynx normal Neck: trachea midline, no thyromegaly Respiratory: no respiratory distress Auscultation: + diminished lung sounds Cardiovascular: RRR, no murmur, no edema Gastrointestinal (Abdomen): normal bowel sounds, soft, nontender, no hepatosplenomegaly Skin: no rashes, warm and dry Neurologic: PERRL, EOMI, accommodation nl, no face palsy, no dysarthria Normal strength and coordination. Psychiatric: A+Ox3, euthymic affect Lymphatic: no cervical lymphadenopathy Results (Rad Onc) Laboratory Results: were reviewed and pertinent findings noted in HPI CT chest diagnostic wo con CT DOSE: 320.87 mGy.cm CLINICAL HISTORY: 76 years-old Male with follow up pulm infiltrates. Follow-up study in a patient with bibasilar opacities TECHNIQUE: Multiaxial CT images of the chest were performed without contrast. A dose lowering technique was utilized adhering to the principles of ALARA. COMPARISON: Chest radiograph of same day, CTA chest 02/11/2022 FINDINGS: No thyroid nodules are identified. No pathologically enlarged lymph nodes are identified. Decreased attenuation of the cardiac blood pool suggestive of anemia. The heart is normal in size without pericardial effusion. Extensive coronary artery calcifications. Atherosclerosis of the thoracic aorta without aneurysm. No pneumothorax or pleural effusion. There is moderately improved aeration of the lungs compared to the 02/11/2022 study with persistent yet resolving intralobular septal thickening with intermixed groundglass opacities within a multilobar multi segmental distribution. No new airspace opacities are identified. Central airways are patent. Cholelithiasis. Subacute appearing splenic infarct redemonstrated. Hepatic steatosis. Unremarkable soft tissues. Asymmetric left-sided gynecomastia. Probable sebaceous cyst of the subcutaneous presternal tissues, 1.4 cm. Unremarkable soft tissues. No acute fracture. Degenerative changes of the spine and shoulders. IMPRESSION: 1. Moderately improved aeration of the lungs compared to the 02/11/2022 exam with resolving intralobular septal thickening and intermixed groundglass opacities likely representing an infectious or inflammatory pneumonitis. 2. No pleural effusion. 3. Subacute appearing splenic infarcts are again noted. 4. Cholelithiasis. 5. Hepatic steatosis. ACT 112: Negative or not required by law. Electronically signed by: Dev Orozco M.D. 02/25/2022 8:48 PM Time Spent Midlevel I spent [10] minutes in preparation for this follow up evaluation including revi walker all the clinical records, reviewing laboratory studies, pathology reports and imaging results. I spent [20] minutes with direct face to face interaction with the patient and/or family including performing a physical exam and answering all questions. I spent [10] minutes documenting this patient's visit.
[2022-02-28] MEDS: HYDROCORTISONE SOD 25 MG in SYRINGE 0 ML IV SCH (08:41)
[2022-02-28] MEDS: ASPIRIN 81 MG ECTAB PO SCH (08:41)
[2022-02-28] MEDS: PANTOprazole 40 MG TAB PO SCH (08:41)
[2022-02-28] MEDS: ATORVASTATIN 40 MG TAB PO SCH (08:41)
[2022-02-28] MEDS: HEPARIN SOD 5,000 UNIT/0.5 ML VIAL SQ SCH ×2 (08:42→20:29)
[2022-02-28] MEDS: SODIUM CHLORIDE 1 GM TABLET PO SCH ×2 (08:42→20:28)
[2022-02-28] MEDS: METOPROLOL SUCC 50MG EXT REL TAB PO SCH (08:42)
--- NOTE | 2022-02-28 10:42 | Nephrology Progress Note ---
Date of Service February 28, 2022 Assessment & Plan (1) Hyponatremia: Plan: Improving with treatment. Oral NaCl 1 grm BID. 1 L daily fluid restriction. Volume status acceptable. Repeat metabolic profile tomorrow AM. (2) Hyperkalemia: Plan: Improved. Encourage PO intake. (3) Acute renal failure: Plan: Improving. At least partially volume mediated and hemodynamic. Medications appropriate for kidney function. Non-oliguric. No changes at this time. (4) Glioblastoma: Plan: XRT today. Admission and Anticipated Discharge Date Admission Date: February 25, 2022 Subjective No acute events overnight. No complaints this AM. Seen and evaluated prior to radiation treatment. Appetite fair. Denies fluid retention or edema. Breathing comfortably. Tolerating oral NaCl and fluid restriction well. Review of Systems Review of Systems: All systems reviewed & are unremarkable except as noted in HPI & below Physical Exam Constitutional: well developed; no acute distress Eyes: no scleral abnormality and no corneal abnormality ENMT: Mouth: no oral mucosal abnormality and oral mucous membranes not dry Neck: normal visual inspection and trachea midline Respiratory: normal respiratory effort Auscultation: lungs clear to auscultation bilaterally Cardiovascular: Rate/Rhythm: regular rate Heart Sounds: normal S1 and normal S2 Extremities: + pedal edema Musculoskeletal: Extremities: no cyanosis and no clubbing Skin: normal turgor; no lesions Neurologic: Motor/Sensory: no tremor and no asterixis Psychiatric: Orientation: alert and oriented x 3 Results & Data ([facility]) Vital Signs (Past 12 Hours) Vital Signs Temp Pulse Pulse Resp BP Pulse Ox O2 Del Method 02/28/22 08:00 89 02/28/22 06:32 36.5 C 85 18 131/70 95 Room Air 02/28/22 03:13 36.6 C 84 18 116/64 93 Room Air 02/27/22 23:19 36.6 C 82 18 123/63 94 Room Air 02/27/22 23:15 80 Laboratory Results Laboratory Results - last 24 hr 02/27/22 02/28/22 02/28/22 11:37 06:41 06:41 WBC 20.43 H RBC 3.49 L Hgb 11.0 L Hct 32.0 L MCV 91.7 MCH 31.5 MCHC 34.4 RDW Std Deviation 49.5 H RDW Coeff of Nick 14.9 H Plt Count 339 MPV 10.0 Immature Gran % (Auto) 3.4 Neut % (Auto) 64.2 Lymph % (Auto) 21.9 Hardy % (Auto) 9.2 Eos % (Auto) 1.0 Baso % (Auto) 0.3 Neut # (Auto) 13.11 H Lymph # (Auto) 4.48 H Hardy # (Auto) 1.88 H Eos # (Auto) 0.20 Baso # (Auto) 0.06 Immature Gran # (Auto) 0.70 H PT 11.0 INR 1.0 APTT 37.6 H PTT Ratio 1.4 Sodium 124 L Potassium Chloride Carbon Dioxide Anion Gap BUN Creatinine Est Cr Clr Drug Dosing Est GFR ( Amer) Est GFR (Non-Af Amer) BUN/Creatinine Ratio Glucose Calcium Magnesium Total Bilirubin AST ALT Alkaline Phosphatase Total Protein Albumin Globulin Albumin/Globulin Ratio 02/28/22 06:41 WBC RBC Hgb Hct MCV MCH MCHC RDW Std Deviation RDW Coeff of Nick Plt Count MPV Immature Gran % (Auto) Neut % (Auto) Lymph % (Auto) Hardy % (Auto) Eos % (Auto) Baso % (Auto) Neut # (Auto) Lymph # (Auto) Hardy # (Auto) Eos # (Auto) Baso # (Auto) Immature Gran # (Auto) PT INR APTT PTT Ratio Sodium 127 L Potassium 4.3 Chloride 99 Carbon Dioxide 24 Anion Gap 4 BUN 29 H Creatinine 0.62 Est Cr Clr Drug Dosing 96.7 Est GFR ( Amer) 110.9 Est GFR (Non-Af Amer) 95.7 BUN/Creatinine Ratio 46.8 H Glucose 88 Calcium 7.9 L Magnesium 1.7 Total Bilirubin 0.6 AST 30 ALT 54 H Alkaline Phosphatase 109 H Total Protein 5.6 L Albumin 2.7 L Globulin 2.9 Albumin/Globulin Ratio 0.9 PG Care Time/CCT Total # of Minutes Spent Total Time Spent with Patient: Total time spent is greater than 50% in coordination of care (as documented) at patient's floor/unit and/or counseling patient: Coding Level of Care Code 70636 Subseq Hosp Care Lvl 3 Diagnoses Hyponatremia E87.1 Hyperkalemia E87.5 Acute renal failure N17.9 Glioblastoma C71.9
[2022-02-28] MEDS: DUTASTERIDE 0.5MG CAPSULE PO SCH (11:06)
[2022-02-28] MEDS: FAMOTIDINE 20 MG in SYRINGE 3 ML IV SCH ×2 (11:06→20:28)
[2022-02-28] MEDS ORDERED: HYDROCORTISONE 10 MG TAB PO ONE (18:37)
--- NOTE | 2022-02-28 18:39 | Hospitalist Progress Note ---
Date of Service February 28, 2022 Assessment & Plan (1) Hyponatremia: Plan: Symptomatic hyponatremia- Sodium 111 on admission Suspected SIADH Appreciate nephrology management and agree with continuing on sodium chloride 1 g twice daily today. Continue on 1 L fluid restriction Sodium up to 127 today. As long as cleared by nephrology tomorrow can likely be discharged after radiation therapy at that time. (2) Acute renal failure: Plan: Creatinine 1.96 on admission with baseline 0.9 to Hypotonic hyponatremia Renal failure may be due to toxicity from chemotherapy as opposed to prerenal causes resolved (3) Hyperkalemia: Plan: Potassium 6.0 on admission Potassium 4.3 this morning. Will remove low-potassium diet in order to enable better nutrition resolved (4) CAD (coronary artery disease): Plan: CAD/hypertension/history of [place]- We will restart his metoprolol succinate tomorrow Continue to hold lisinopril (5) Glioblastoma: Plan: Status post surgery in [facility] in January Radiation oncology consulted and patient was able to have radiation today. Placed on stress dose steroids, holding oral prednisone. Decrease hydrocortisone to 10 mg p.o. later today. Transition to 10 mg every morning and 5 mg every afternoon tomorrow. (6) BPH (benign prostatic hyperplasia): Plan: Continue dutasteride and tamsulosin (7) Hypertension: (8) GERD (gastroesophageal reflux disease): Plan: Continue pantoprazole 40 mg p.o. daily (9) Hypercholesteremia: Plan: Continue atorvastatin (10) Carotid stenosis, left: Plan: Continue aspirin and atorvastatin (11) Pneumonitis: Plan: recently discharged on bactrim for PCP. treatment almost completed however patient now improved. Online Merchandising Coordinator reviewed lab findings, likely not PCP. will stop treatment course Unclear what caused his significant lung findings however if not PCP (12) Splenic infarction: Plan: Found incidentally on last admission. Treated with IV heparin during the admission but no anticoagulation given on discharge. Discussed with oncology today and suspected more likely due to atherosclerotic disease. He is not symptomatic from this. Therefore we will discharge on his usual aspirin and atorvastatin. Plan VTE Prophylaxis - heparin 5000 units SQ BID Diet -consider regular diet Disposition -stable for transfer to [facility] Admission and Anticipated Discharge Date Admission Date: February 25, 2022 Subjective Patient seen after radiation treatment today. He reports no acute events overnight. No nausea or vomiting. No fatigue. No worsening shortness of breath. Review of Systems Review of Systems: All systems reviewed & are unremarkable except as noted in Subjective Physical Exam Constitutional: WD/WN, vitals as above no acute distress Eyes: + anicteric sclerae; normal pupil size Respiratory: normal respiratory effort, lungs clear to auscultation Cardiovascular: RRR, no murmur, no edema Gastrointestinal (Abdomen): normal bowel sounds, soft, nontender, no hepatosplenomegaly Musculoskeletal: Extremities: extremities normal to inspection Skin: no rashes, warm and dry Neurologic: moves all extremities and awake; not confused Psychiatric: A+Ox3, euthymic affect Results & Data Results & Data ([facility]) Vital Signs (Past 12 Hours) Vital Signs Temp Pulse Pulse Resp BP Pulse Ox O2 Del Method 02/28/22 16:27 36.8 C 81 18 122/61 02/28/22 15:19 84 02/28/22 11:01 36.8 C 77 16 129/60 97 Room Air 02/28/22 10:36 Room Air 02/28/22 08:00 89 PG Care Time/CCT Total # of Minutes Spent Total Time Spent with Patient: Total time spent is greater than 50% in coordination of care (as documented) at patient's floor/unit and/or counseling patient: Coding Level of Care Code 64623 Subseq Hosp Care Lvl 2 Diagnoses Hyponatremia E87.1 Acute renal failure N17.9 Hyperkalemia E87.5 CAD (coronary artery disease) I25.10 Glioblastoma C71.9 BPH (benign prostatic hyperplasia) N40.0 Hypertension I10 GERD (gastroesophageal reflux disease) K21.9 Esophagitis presence: without esophagitis Hypercholesteremia E78.00 Carotid stenosis, left I65.22 Pneumonitis J18.9 Splenic infarction D73.5 (1) GERD (gastroesophageal reflux disease) Esophagitis presence: without esophagitis Qualified Code(s): K21.9 - Gastro- esophageal reflux disease without esophagitis
[2022-02-28] MEDS: TAMSULOSIN HCL 0.4 MG CAP PO SCH (20:28)
[2022-03-01] MEDS: HEPARIN SOD 5,000 UNIT/0.5 ML VIAL SQ SCH (07:53)
[2022-03-01] MEDS: PANTOprazole 40 MG TAB PO SCH (07:53)
[2022-03-01] MEDS: METOPROLOL SUCC 50MG EXT REL TAB PO SCH (07:53)
[2022-03-01] MEDS: ATORVASTATIN 40 MG TAB PO SCH (07:53)
[2022-03-01] MEDS: ASPIRIN 81 MG ECTAB PO SCH (07:53)
[2022-03-01] MEDS: SODIUM CHLORIDE 1 GM TABLET PO SCH (07:54)
[2022-03-01] MEDS ORDERED: HYDROCORTISONE 10 MG TAB PO SCH ×2 (09:00→17:00)
[2022-03-01] MEDS: DUTASTERIDE 0.5MG CAPSULE PO SCH (09:04)
[2022-03-01 10:41] LABS: BUN Creatinine Ratio 34.3 (10-20); Calcium 7.7 mg/dl (8.5-10.1); Est GFR (African American) 107.4 ml/min; Est GFR (Non-African American) 92.7 ml/min; Potassium 4.1 mmol/L (3.5-5.1)
[2022-03-01 10:48] LABS: Albumin Level 2.7 gm/dl (3.4-5.0); Magnesium 1.6 mg/dl (1.7-2.4); Phosphorus 1.4 mg/dl (2.5-4.9)
[2022-03-01] MEDS ORDERED: SODIUM PHOSPHATE 3 MMOL/1 ML INFUSION IV STA (10:56)
[2022-03-01] MEDS ORDERED: SODIUM PHOSPHATE 15 MMOL in SODIUM CHLORIDE 0.9% 250 ML IV ONE (11:15)
[2022-03-01] MEDS ORDERED: MAGNESIUM SULFATE / D5W 1 GM/100 ML BAG IV ONE (11:30)
[2022-03-01] MEDS ORDERED: MAGNESIUM OXIDE 400 MG TAB PO SCH (11:30)
--- NOTE | 2022-03-01 16:31 | Nephrology Progress Note ---
Date of Service March 01, 2022 Assessment & Plan (1) Hyponatremia: Plan: Improving with treatment. Oral NaCl 1 grm BID. 1 L daily fluid restriction. Volume status acceptable. Repeat metabolic profile tomorrow AM. (2) Acute renal failure: Plan: Improved. Medications appropriate for kidney function. Non-oliguric. No changes at this time. (3) Glioblastoma: Plan: XRT today. (4) Hypophosphatemia: Plan: PO replacement ordered. Repeat labs tomorrow AM. Encourage nutrition. (5) Hypomagnesemia: Plan: IV replacement provided. Repeat labs tomorrow AM ordered. Admission and Anticipated Discharge Date Admission Date: February 25, 2022 Subjective No acute events overnight. Tolerating XRT well. No complaints. Review of Systems Review of Systems: All systems reviewed & are unremarkable except as noted in HPI & below Physical Exam Constitutional: well developed; no acute distress Eyes: no scleral abnormality and no corneal abnormality ENMT: Mouth: no oral mucosal abnormality and oral mucous membranes not dry Neck: normal visual inspection and trachea midline Respiratory: normal respiratory effort Auscultation: lungs clear to au scultation bilaterally Cardiovascular: Rate/Rhythm: regular rate Heart Sounds: normal S1 and normal S2 Extremities: + pedal edema Musculoskeletal: Extremities: no cyanosis and no clubbing Skin: normal turgor; no lesions Neurologic: Motor/Sensory: no tremor and no asterixis Psychiatric: Orientation: alert and oriented x 3 Results & Data ([facility]) Vital Signs (Past 12 Hours) Vital Signs Temp Pulse Resp BP BP Pulse Ox O2 Del Method 03/01/22 15:46 36.5 C 80 16 121/66 97 Room Air 03/01/22 07:22 36.6 C 76 18 107/64 95 Room Air Laboratory Results Laboratory Results - last 24 hr 03/01/22 09:54 Sodium 128 L Potassium 4.1 Chloride 99 Carbon Dioxide 24 Anion Gap 5 BUN 23 Creatinine 0.67 Est Cr Clr Drug Dosing 90.0 Est GFR ( Amer) 107.4 Est GFR (Non-Af Amer) 92.7 BUN/Creatinine Ratio 34.3 H Glucose 153 H Calcium 7.7 L Phosphorus 1.4 L* Magnesium 1.6 L Albumin 2.7 L PG Care Time/CCT Total # of Minutes Spent Total Time Spent with Patient: Total time spent is greater than 50% in coordination of care (as documented) at patient's floor/unit and/or counseling patient: Coding Level of Care Code 03160 Subseq Hosp Care Lvl 3 Diagnoses Hyponatremia E87.1 Acute renal failure N17.9 Glioblastoma C71.9 Hypophosphatemia E83.39 Hypomagnesemia E83.42
[2022-03-01] MEDS ORDERED: POT PHOSPHATE MONOBASIC W/ SOD TAB PO SCH (17:00)
[2022-03-03 20:22] LABS: Coccidioides Ab, ID Negative (Negative); Cryptococcal Antigen Not Detected (Not Detected); Source Serum
== END 2022-03-01 18:14 | disposition home or self-care (01) | DRG 643 ==
LOC: ED 04:35 → 1E 07:11 → SUATTDRO 07:11 → 1E 08:11 → 2E 02-26 09:03 → 3N 03-01 00:29

== ENCOUNTER 2023-04-05 12:47 | Inpatient (IN) ==
--- NOTE | 2023-04-05 13:07 | ED Triage Note ---
Date of Service April 05, 2023 Provider in Triage Author: Edward Horton History of Present Illness This patient was briefly evaluated while in triage. An abbreviated physical exam was performed. This patient is a 77-year-old Male who presents to the ED for evaluation of left arm numb/painful x 1 hour fingers feel cold tried a nitro at onset hx of seizure disorder, glioblastoma s/p resection Physical Exam GENERAL: NAD CARDIOVASCULAR: RRR RESPIRATORY: CTA ABDOMEN: BS x 4. Nontender to palpation. Initial orders for labs and / or imaging were placed and patient was placed in the waiting area until a bed is available. Please see further documentation for the full ED course.
--- NOTE | 2023-04-05 13:56 | XRay Report ---
XR chest 1V not portable HISTORY: 77 years-old Male left arm pain acute chest and left arm pain COMPARISON: 03/02/2023 TECHNIQUE: PA view of the chest FINDINGS: Cardiac silhouette is mildly enlarged. Pulmonary vascular congestion suggested with chronic interstit ial coarsening. No pneumothorax, pleural effusion or airspace consolidation. Right subclavian Infuse- a-Port catheter is unchanged. Bones appear grossly intact. IMPRESSION: Cardiomegaly with pulmonary vascular congestion. ACT 112: Negative or not required by law. The above report was generated using voice recognition software. It may contain grammatical, syntax o r spelling errors. Electronically signed by: Dev Orozco M.D. 04/05/2023 1:54 PM
[2023-04-05 14:34] LABS: Eosinophils # (auto) 0.06 K/uL (0.00-0.50); Eosinophils % (auto) 1.8 %; Hematocrit (blood only) 33.8 % (42.0-52.0); Hemoglobin 11.4 g/dl (14.0-18.0); Immature Granulocytes # (auto) 0.02 K/uL (0.01-0.20); Immature Granulocytes % (auto) 0.6 %; Lymphocytes # (auto) 0.78 K/uL (1.20-3.40); Lymphocytes % (auto) 23.7 %; Mean Corpuscular Hemoglobin 32.3 pg (25.0-34.0); Mean Corpuscular Hgb Conc 33.7 g/dL (32.0-36.0); Mean Corpuscular Volume 95.8 fL (80.0-100.0); Mean Platelet Volume 9.1 fL (9.4-12.4); Monocytes # (auto) 0.27 K/uL (0.11-0.59); Monocytes % (auto) 8.2 %; Neutrophils # (auto) 2.16 K/uL (1.40-6.50); Neutrophils % (auto) 65.7 %; Platelet Count 167 K/uL (130-400); RDW Coefficient of Variation 15.1 % (11.5-14.5); RDW Standard Deviation 51.3 fL (36.4-46.3); Red Blood Count 3.53 M/uL (4.70-6.10); White Blood Count 3.29 K/ul (4.8-10.8)
[2023-04-05 14:54] LABS: Alanine Aminotransferase 41 U/L (7-52); Albumin Level 3.2 gm/dl (3.4-5.0); Alkaline Phosphatase 123 U/L (34-104); Anion Gap 7 (3-11); Aspartate Aminotransferase 21 U/L (13-39); BUN Creatinine Ratio 18.5 (10-20); Bilirubin,Total 0.7 mg/dl (0.2-1.0); Blood Urea Nitrogen 12 mg/dl (6-23); Calcium 8.2 mg/dl (8.6-10.3); Carbon Dioxide 23 mmol/L (21-32); Chloride 106 mmol/L (98-107); Est GFR (Non-African American) 93.2 ml/min; Globulin 3.3 gm/dl (2.5-4.0); Glucose 64 mg/dl (70-99(Fasting)); Magnesium 1.8 mg/dl (1.7-2.4); Potassium 3.7 mmol/L (3.5-5.1); Sodium 136 mmol/L (136-145); Total Protein 6.5 gm/dl (6.0-8.3)
[2023-04-05 15:00] LABS: Troponin I High Sensitivity 10.5 pg/ml (0-20)
[2023-04-05 15:17] LABS: INR 1.1 (0.9-1.1); Partial Thromboplastin Ratio > 4.9; Prothrombin Time 11.6 Seconds (9.0-12.0)
[2023-04-05 15:28] LABS: Partial Thromboplastin Time > 139 Seconds (21-31)
[2023-04-05] MEDS ORDERED: OPTIRAY 320 125ml IV ONE (15:41)
[2023-04-05] MEDS ORDERED: SODIUM CHLORIDE 0.9% 500 ML IV ONE (15:48)
[2023-04-05] MEDS ORDERED: dexAMETHasone**PF** 10 MG/ML VIAL IV ONE (15:48)
[2023-04-05] MEDS ORDERED: LORazepam 1 MG/1 ML SYR ED Inj Use IV STA (15:48)
--- NOTE | 2023-04-05 15:53 | Electrocardiogram Report ---
Test Reason : Blood Pressure : / mmHG Vent. Rate : 083 BPM Atrial Rate : 083 BPM P-R Int : 126 ms QRS Dur : 084 ms QT Int : 362 ms P-R-T Axes : 039 018 042 degrees QTc Int : 425 ms Normal sinus rhythm Normal ECG When compared with ECG of 28-MAR-2023 11:24, No significant change was found Confirmed by Khadar García ([id number]) on 04/05/2023 3:48:37 PM Referred By: REFERRED SELF Confirmed By:Khadar García
--- NOTE | 2023-04-05 15:55 | Emergency Department Note ---
Impression & Plan Seizure-like activity, Glioblastoma, Episode of shaking, Speech abnormality ED Provider Note NAME: NELSON LOU Jr AGE: 77 SEX: M : 1945 ARRIVES VIA: Walk-In INFORMANT: [Patient][] ED PROVIDER(S): [Joseph Gonzalez MD] Patient first seen by me at 1535 CHIEF COMPLAINT: Illness HISTORY OF PRESENT ILLNESS: The patient is a 77-year-old male who presents with left hand numbness and tingling and some difficulty with function. This all began around 3-1/2 hours ago, noon time. The patient was in the ED waiting area as there was no bed available in the main ED. A short time ago, the patient began having difficulty with his speech and his alerted the nursing staff. A stroke alert was called from triage and the patient went from triage to CT scan. The patient has a history of glioblastoma that has been operated on twice. He was in the ED about a week ago for seizure and was placed on Keppra. He was angry and not a nice person on the Keppra so his cancer doctor had him stop this medication. He has missed 2 doses. The patient denies a headache, there has been no cough or cold or congestion. No chest pain or shortness of breath. There has been no loss of consciousness. The patient was on Decadron for some time, he is not currently on this medication. PMHx/PSHx/Social Hx: See Below PHYSICAL EXAM: GENERAL: Patient is in no acute distress. HEENT: No acute trauma, normocephalic atraumatic, mucous membranes moist, no nasal congestion. NECK: No stridor, no adenopathy, no meningismus, trachea is midline. LUNGS: Clear to auscultation bilaterally, no wheeze, no rhonchi, breath sounds equal. HEART: Without murmurs gallops or rubs, regular rate and rhythm. ABDOMEN: Soft, nontender, no peritonitis. EXTREMITIES: No cyanosis, full range of motion of all the joints without pain or difficulty. NEUROLOGIC: Awake and alert. He does have some speech slur and some stuttering of his speech. His left arm seems somewhat shaky and he has poor function of this arm. SKIN: No jaundice, no diaphoresis. DIFFERENTIAL DIAGNOSIS: Seizure, stroke, intracranial bleeding, edema, electrolyte imbalance, dysrhythmia, among others. EMERGENCY DEPARTMENT PROCEDURES: MEDICAL DECISION MAKING: There is no leukocytosis. A mild anemia was seen with a hemoglobin of 11.4. Patient does carry history of anemia. There is a normal platelet count. PTT was high, INR was normal. There was no renal failure or significant electrolyte abnormality. No concerning liver enzyme elevation. ECG shows a sinus rhythm, no ischemia. Cardiac enzyme testing x 1 is not consistent with acute cardiac injury. Chest x-ray does not show mediastinal widening, pneumonia or pneumothorax. CT of the brain shows changes consistent with his glioblastoma surgery, no bleeding. Some edema was seen. CT angios of the head and neck were performed, there was some narrowing of the neck arteries, no aneurysm seen in the brain. No arterial occlusion found. On exam, the patient had some difficulty with his speech, his left arm was shaking and the left arm seemed to be hard to control. He was awake though and an excellent historian. Patient's presentation was consistent with focal seizure. He did recently stop his Keppra. The patient received IV Ativan, 1 mg. He was given a 500 cc saline bolus, 2000 mg of IV Keppra, 10 mg IV Decadron. He eventually received 100 mg of IV lacosamide. The patient has shown marked improvement in his symptoms with the medications mentioned above. I did speak with [facility], the patient can be hospitalized at our facility. He will be weaned off Keppra and started on lacosamide twice a day. In short, the patient is not a candidate for TNK. He was paged out as a stroke alert by the nursing staff. This was called from triage. Once his history was reviewed, once he was examined, his presentation seemed much more consistent with a focal seizure. I did speak with the patient and his , I spoke with case management, the on- call hospitalist was consulted. Prior/Outside records/notes reviewed: Neurosurgical note from 03/10/2023 discussing his glioblastoma and the plan moving forward ECG per my interpretation: Indication was possible stroke. The ECG shows a normal sinus rhythm with a rate of 83. There is no ST elevation, there is some baseline artifact. No PVCs but the QTc is 425. Continuous Cardiac Monitoring per my interpretation: An order was placed for continuous cardiac monitoring. The monitor shows a rate of 92 with normal sinus rhythm. Imaging/x-ray results per my interpretation: Chest x-ray shows enlarged heart with some pulmonary vascular congestion, no pneumonia or pneumothorax. Chronic Medical/Social conditions affecting care: History of glioblastoma with surgery x 2. Advanced age. Care/Management discussed with: [facility]-. Case management and the on-call hospitalist. Level of care consideration(s): After review of the information above and other included data: --I believe the patient requires escalation of care to admission Critical Care Note: I have personally spent 48 minutes of critical care time in the direct management of this patient. This includes bedside care, interpretation of diagnostic studies, and testing, discussion with consultants, patient, and family members, and other required patient management activities. This 48 minutes is in excess of all separately billable procedures. DISPOSITION: Admission Past Med/Surg History Medical History Chronic cough Diverticulosis Glioblastoma (01/04/22) Dx 01/2022 last chemo 11/2022, surgery 12/2022 [facility] [place] Nasal congestion Hypertension Prostate nodule Post-void dribbling Atherosclerotic heart disease of [place] coronary artery without angina pectoris History of COVID-19 03/2020 CAD (coronary artery disease) inferior wall CT 1989 s/p PTCA of the CX artery BPH (benign prostatic hyperplasia) hx Hyperlipidemia Carotid stenosis, left s/p Left CEA with Bovine Patch Angioplasty (2019) Myocardial Infarction 1989 GERD (gastroesophageal reflux disease) Surgical History (Updated 03/02/23 @ 11:43 by Tuyet Mayers RN) Port-A-Cath in place (03/02/23) Insertion of Right Subclavian Access Port with Fluoroscopy(Right) - Jewel Clarke MD, FACS History of anesthesia complications "During prior anesthetic on 01/22 patient was noted to have labile pressures during induction with propofol, first with extreme hypertension (systolic up to 196) and then hypotension requiring NE gtt" per 12/2022 [facility] [place] anesthesia records Hx of transurethral resection of prostate 2017 History of craniotomy (12/15/22) 1. Redo Right Temporal craniotomy for resection of brain lesion. 2. Use of Stealth neuronavigation. Dr. Macario Jordan at [facility] S/P bronchoscopy 02/2022 History of craniotomy 01/04/22 History of cataract surgery R/L S/P carotid endarterectomy Left CEA with Bovine Patch Angioplasty (2019) History of cystoscopy History of colonoscopy History of tooth extraction Hx of angioplasty 1989 [facility] Family History Father , 86yo Lung cancer Myocardial infarction Hypertension Mother , 92yo Pacemaker Hypertension Sister H/O carotid endarterectomy Stroke following surgery; Hypertension Dyslipidemia Sister Dyslipidemia Hypertension Melanoma Sister Hypertension Denies family history of Ovarian cancer Prostate cancer Breast cancer Colorectal cancer Social History Smoking Status: Former smoker Tobacco Type: Cigarettes Age Started Using Tobacco: 13; Age Quit Using Tobacco: 38; packs per day: 2; Cigarettes Per Day: [id number]; Second Hand Exposure: Yes (hx as child); Do You Dip or Chew Tobacco: No; Hx Alcohol Use: Yes (hx none in last 30 years) Hx Substance Use: No Preferred Language: Georgian Communication Ability: Effective Visual Impairment: No Limitations Hearing Ability: Use of Hearing Aid Metal Ceiling Builder Required: No Beliefs That Will Affect Care: Temple Temple Beliefs: Congregational marital status: marital status details: Amrita Current Living Situation: Spouse current occupational status: retired How many Children do You have: 0 Feels Safe at Home: Yes Childhood Exposure to Second-Hand Smoke: Yes (father ) Diet: regular Diet Comment: attempts a healthy diet caffeine: Yes (3 cups daily ) during the past year weight has: remained stable Dental Care, Regularly: Yes Physical Activity Frequency: Daily Seatbelt Use: always Sunscreen Use: No Assistive Devices: Cane, Denture - Upper, Denture - Lower, Glasses and Hearing Aid - Bilateral Allergies Allergies Allergy/AdvReac Type Severity Reaction Status Date / Time No Known Allergies Allergy Unknown Verified 03/02/23 08:05 Home Meds Home Medications Medication Instructions Recorded Confirmed nitroglycerin 0.4 mg sublingual 0.4 mg sublingual Q5M PRN Chest 01/27/20 04/05/23 tablet Pain multivitamin (Multiple Vitamins 2 tab PO QAM 02/02/22 04/05/23 tablet) acetaminophen 500 mg tablet 500 - 1,000 mg PO UD PRN Pain 02/11/22 03/02/23 (Tylenol Extra Strength) bhgdz-[id number] 450 unit 450 unit PO BID PRN Gi Upset 02/11/22 03/02/23 disintegrating tablet (Beano) methylcellulose (laxative) 2 g PO DAILY 02/11/22 03/02/23 (Citrucel Sugar Free oral powder) ondansetron 8 mg disintegrating 8 mg PO Q12H PRN TAKE PRIOR TO 02/11/22 04/05/23 tablet CHEMO MED calcium carbonate 600 mg-vitamin 1 cap PO QAM 03/07/22 03/02/23 D3 10 mcg (400 unit) capsule atorvastatin 40 mg tablet 40 mg PO HS 02/22/23 04/05/23 cholecalciferol (vitamin D3) 125 125 mcg PO QAM 02/22/23 03/02/23 mcg (5,000 unit) tablet (Vitamin D3) famotidine 20 mg tablet 20 mg PO QAM 02/22/23 03/02/23 Previous Rx's Medication Instructions Recorded aspirin 81 mg tablet,delayed 81 mg PO QAM #30 tabs 02/17/22 release dutasteride 0.5 mg capsule 0.5 mg PO QAM #90 caps 02/06/23 (Avodart) metoprolol succinate 50 mg 50 mg PO QAM #90 tabs 02/10/23 tablet,extended release 24 hr lisinopril 10 mg tablet 10 mg PO QAM #90 tabs 02/27/23 levetiracetam 500 mg tablet 500 mg PO BID 30 days #60 tabs 03/28/23 (Keppra) Results & Data (ED) Vital Signs Vital Signs - 24 hr 04/05/23 13:05 04/05/23 15:43 04/05/23 15:44 Temperature 36.5 C Temperature Source Temporal Artery Scan Pulse Rate 92 H 87 89 Pulse Rate [Apical] Pulse Rate from SpO2 Sensor 88 Respiratory Rate 18 26 H Respiratory Effort / Characteristics Non-Labored Spontaneous Respiratory Depth Normal Blood Pressure 139/94 Blood Pressure [Right Arm] Blood Pressure Mean 109 Blood Pressure Mean [Right Arm] Blood Pressure Position Sitting Pulse Oximetry 95 96 Oxygen Delivery Method Sepsis Recent Fever Within 48 Hours No Sepsis New/Unexplained Change in Mental Status No Sepsis Action Taken by Nursing No Action Required 04/05/23 15:53 04/05/23 16:00 04/05/23 16:00 Temperature Temperature Source Pulse Rate 85 Pulse Rate [Apical] 91 H Pulse Rate from SpO2 Sensor 86 Respiratory Rate 20 22 Respiratory Effort / Characteristics Non-Labored Spontaneous Respiratory Depth Normal Blood Pressure 164/92 H Blood Pressure [Right Arm] 183/103 H Blood Pressure Mean 117 Blood Pressure Mean [Right Arm] 129 Blood Pressure Position Pulse Oximetry 96 99 Oxygen Delivery Method Room Air Sepsis Recent Fever Within 48 Hours Sepsis New/Unexplained Change in Mental Status Sepsis Action Taken by Nursing 04/05/23 16:30 04/05/23 16:32 04/05/23 16:32 Temperature Temperature Source Pulse Rate 94 H 86 Pulse Rate [Apical] Pulse Rate from SpO2 Sensor 87 86 Respiratory Rate 19 25 H Respiratory Effort / Characteristics Respiratory Depth Blood Pressure 174/105 H Blood Pressure [Right Arm] Blood Pressure Mean 138 Blood Pressure Mean [Right Arm] Blood Pressure Position Pulse Oximetry 100 98 Oxygen Delivery Method Sepsis Recent Fever Within 48 Hours Sepsis New/Unexplained Change in Mental Status Sepsis Action Taken by Nursing 04/05/23 17:00 Temperature Temperature Source Pulse Rate Pulse Rate [Apical] Pulse Rate from SpO2 Sensor 83 Respiratory Rate Respiratory Effort / Characteristics Respiratory Depth Blood Pressure Blood Pressure [Right Arm] Blood Pressure Mean Blood Pressure Mean [Right Arm] Blood Pressure Position Pulse Oximetry 100 Oxygen Delivery Method Sepsis Recent Fever Within 48 Hours Sepsis New/Unexplained Change in Mental Status Sepsis Action Taken by [facility] Medications Current Medication List: was personally reviewed by me Laboratory Data Attestation: I reviewed the patient's lab results. 04/05/23 14:14 04/05/23 14:14 Lab Results 04/05/23 04/05/23 Range/Units 14:14 15:44 WBC 3.29 L (4.8-10.8) K/ul RBC 3.53 L (4.70-6.10) M/uL Hgb 11.4 L (14.0-18.0) g/dl POC Hgb 11.2 L (14.0-18.0) g/dl Hct 33.8 L (42.0-52.0) % POC Hct 33 L (42-52) % MCV 95.8 (80.0-100.0) fL MCH 32.3 (25.0-34.0) pg MCHC 33.7 (32.0-36.0) g/dL RDW Std Deviation 51.3 H (36.4-46.3) fL RDW Coeff of Nick 15.1 H (11.5-14.5) % Plt Count 167 (130-400) K/uL MPV 9.1 L (9.4-12.4) fL Immature Gran % (Auto) 0.6 % Neut % (Auto) 65.7 % Lymph % (Auto) 23.7 % [place] % (Auto) 8.2 % Eos % (Auto) 1.8 % Baso % (Auto) 0.0 % Neut # (Auto) 2.16 (1.40-6.50) K/uL Lymph # (Auto) 0.78 L (1.20-3.40) K/uL [place] # (Auto) 0.27 (0.11-0.59) K/uL Eos # (Auto) 0.06 (0.00-0.50) K/uL Baso # (Auto) 0.00 (0.00-0.20) K/uL Immature Gran # (Auto) 0.02 (0.01-0.20) K/uL PT 11.6 (9.0-12.0) Seconds INR 1.1 (0.9-1.1) APTT > 139 H* (21-31) Seconds PTT Ratio > 4.9 POC Sodium 133 L (135-144) mmol/L Sodium 136 (136-145) mmol/L POC Potassium 3.8 (3.3-5.0) mmol/L Potassium 3.7 (3.5-5.1) mmol/L POC Chloride 100 L (101-112) mmol/L Chloride 106 (98-107) mmol/L Carbon Dioxide 23 (21-32) mmol/L POC Total CO2 23 L (24-31) mmol/L Anion Gap 7 (3-11) POC Anion Gap 15.0 L (16-25) mmol/L POC BUN 10 (7-18) mg/dl BUN 12 (6-23) mg/dl Creatinine 0.65 (0.6-1.4) mg/dl POC Creatinine 0.7 (0.6-1.3) mg/dl Est Cr Clr Drug Dosing Not Reportable Est GFR ( Amer) 108.0 ml/min Est GFR (Non-Af Amer) 93.2 ml/min BUN/Creatinine Ratio 18.5 (10-20) Glucose 64 L (70-99(Fasting)) mg/dl POC Glucose (other) 80 (70-99) mg/dl Calcium 8.2 L (8.6-10.3) mg/dl POC Ioniz Calcium [place] 1.06 L (1.12-1.32) mmol/l Magnesium 1.8 (1.7-2.4) mg/dl Total Bilirubin 0.7 (0.2-1.0) mg/dl AST 21 (13-39) U/L ALT 41 (7-52) U/L Alkaline Phosphatase 123 H (34-104) U/L Troponin I High Sens 10.5 (0-20) pg/ml Total Protein 6.5 (6.0-8.3) gm/dl Albumin 3.2 L (3.4-5.0) gm/dl Globulin 3.3 (2.5-4.0) gm/dl Albumin/Globulin Ratio 1.0 (0.9-2) Administered Medications Discontinued Medications Dexamethasone Sodium Phosphate (DexamethasonePf 10 Mg/Ml Vial) 10 mg IV NOW ONE Stop: 04/05/23 15:49 Last Admin: 04/05/23 15:58 Dose: 10 mg Documented By: HASEEB Levetiracetam 2,000 mg/ Sodium (Chloride) 270 mls @ 999 mls/hr IV NOW STA Stop: 04/05/23 16:04 Last Admin: 04/05/23 16:02 Dose: 999 mls/hr Documented By: LAVELLE Sodium Chloride (Nss) 500 mls @ 999 mls/hr IV .Q31M ONE Stop: 04/05/23 16:18 Last Admin: 04/05/23 15:58 Dose: 999 mls/hr Documented By: HASEEB Lacosamide 100 mg/ Sodium (Chloride) 60 mls @ 120 mls/hr IV NOW STA Stop: 04/05/23 16:52 Last Admin: 04/05/23 17:55 Dose: 120 mls/hr Documented By: HASEEB Ioversol (Optiray 320 125ml) 118 ml IV ONCE ONE Stop: 04/05/23 15:42 Last Admin: 04/05/23 15:41 Dose: 118 ml Documented By: COURTNEY Lorazepam (Lorazepam 1 Mg/1 Ml Syr Ed Inj Use) 1 mg IV ONE STA Stop: 04/05/23 15:49 Last Admin: 04/05/23 15:58 Dose: 1 mg Documented By: HS Imaging Data Radiologist's Impression: Chest X-Ray 04/05/23 13:07 XR chest 1V not portable HISTORY: 77 years-old Male left arm pain acute chest and left arm pain COMPARISON: 03/02/2023 TECHNIQUE: PA view of the chest FINDINGS: Cardiac silhouette is mildly enlarged. Pulmonary vascular congestion suggested with chronic interstitial coarsening. No pneumothorax, pleural effusion or airspace consolidation. Right subclavian Fmjllc-w-[id number] catheter is unchanged. Bones appear grossly intact. IMPRESSION: Cardiomegaly with pulmonary vascular congestion. ACT 112: Negative or not required by law. The above report was generated using voice recognition software. It may contain grammatical, syntax or spelling errors. Electronically signed by: Dev Orozco M.D. 04/05/2023 1:[address] 04/05/23 13:08 CT SCAN OF THE BRAIN WITHOUT IV CONTRAST CLINICAL HISTORY: Left arm pain and numbness. COMPARISON STUDY: CT of the brain dated 03/28/2023 TECHNIQUE: Unenhanced axial CT scan of the brain is performed from the vertex to the skull base. A dose lowering technique was utilized adhering to the principles of ALARA. FINDINGS: Brain parenchyma: Focus of right posterior temporal encephalomalacia is unchanged and consistent with a site of previous surgical resection. Surrounding hypodensity is unchanged modest increased from previous. Hyperdense extra-axial fluid is again seen overlying the right convexity, and measures up to 5 mm in thickness. Intermediate density extra-axial fluid is seen overlying the posterior right convexity at the vertex and measures up to 6 mm. This is also unchanged. There is age-related involutional change noting mild subcortical and periventricular microangiopathic disease. There is no hemorrhage, mass effect, or evidence of acute territorial ischemia by CT criteria. Olson-white matter differentiation is preserved. Ventricles, sulci, cisterns: Prominent secondary to involutional change. Intracranial vasculature: There is atherosclerotic calcification of the cavernous carotid and vertebral arteries. Calvarium: There is postsurgical change from right sided craniotomy. No destructive calvarial lesion is identified. Sinuses and mastoids: The visualized paranasal sinuses are clear. The mastoid air cells are well pneumatized. Orbits: The bony orbits are grossly intact. There are bilateral ocular lens implants. IMPRESSION: 1. Findings are similar to 03/28/2023 examination. 2. Again seen is postsurgical change from right-sided craniotomy and temporal lobe resection. Hypodensity around the resection site is unchanged to modestly increased from previous and favors edema. Residual tumoral would be possible to exclude. 3. Hyperdense extra-axial fluid along the right frontal convexity and more intermediate attenuation fluid along the high right posterior parietal convexity is unchanged. This likely represents acute to subacute versus acute on chronic subdural hemorrhage. Postsurgical change is comparison appears similar. Continued attention at follow-up is recommended. 4. Additional findings as above. ACT 112: Negative or not required by law. Electronically signed by: Joseph Duque M.D. 04/05/2023 3:54 PM Head CTA 04/05/23 13:08 CTA ANGIOGRAPHY OF THE HEAD CLINICAL HISTORY: Left arm pain and numbness. History of glioblastoma. COMPARISON STUDY: MRI of the brain March 06, 2023. Head CT March 28, 2023. TECHNIQUE: Helical axial images of the head were obtained following uneventful intravenous administration of 118 cc of Optiray. Sagittal and coronal reconstructions were viewed as well as maximal intensity projections on an independent 3-D workstation. Automated exposure control was utilized for the study. A dose lowering technique was utilized adhering to the principles of ALARA. CT DOSE: 1000.83 mGy.cm FINDINGS: Please note that the head CT will be reported separately. The previously described 6 mm hyperdense extra-axial collection overlying the right cerebral hemisphere is similar to CT of March 28, 2023. A 2.8 cm posterior right temporal lobe resection site is noted. There is associated edema, stable to slightly increased since head CT of March 28, 2023. Associated suspected hyperemia is noted. There is extensive calcified plaque within the bilateral cavernous carotids. This results in moderate stenosis of the right cavernous carotid and mild stenosis of the left cavernous carotid. No large vessel occlusion is identified. This exam is mildly compromised by motion artifact. There is suspected moderate stenosis of the bilateral intracranial vertebral arteries. Basilar artery is patent. Bilateral posterior cerebral arteries are patent. There is no intracranial aneurysm. IMPRESSION: 1. No large vessel occlusion. No intracranial aneurysm. 2. Moderate stenosis of multiple intracranial vessels, as described above. Exam mildly compromised by motion artifact. 3. No significant change in the hyperdense extra-axial fluid collection overlying the right frontal convexity since prior CT. This is better depicted on the head CT which will be reported separately. 4. Posterior right temporal lobe resection site. Stable to slight increase in associated edema. This could reflect posttreatment change however residual/recurrent tumor could appear similar and findings are suboptimally assessed by CT. ACT 112: Negative or not required by law. Electronically signed by: Sami Hernandez M.D. 04/05/2023 3:59 PM Neck CTA 04/05/23 13:08 CT angio neck with con CLINICAL HISTORY: 77 years-old Male with left arm pain and numbness. Acute strokelike symptoms COMPARISON STUDY: CT head and CTA head of same day TECHNIQUE: Following the IV administration of 118 cc of Optiray, CT angiogram of the neck was performed from the aortic arch to the skull base. Images are reviewed in the axial, sagittal, and coronal planes. 3-D MIPS images are created and assessed. IV contrast was administered without complication. All measurements were calculated based on NASCET criteria. A dose lowering technique was utilized adhering to the principles of ALARA. FINDINGS: Study is motion degraded. 70% stenosis at the origin of the right ICA secondary to atherosclerotic plaque. There is less than 50% stenosis at the origin of the left ICA. The bilateral vertebral arteries are diminutive and patent. The imaged basilar artery is patent. High-grade stenosis within the V4 segment left vertebral artery secondary to prominent calcified plaque. Lung apices appear clear without pneumothorax. Unremarkable soft tissues. No acute fracture. Degenerative changes of the cervical spine. The study is motion degraded. Subcentimeter metallic density focus within the left naris IMPRESSION: 1. 70% stenosis at the origin of the cervical segment right ICA secondary to prominent atherosclerotic plaque of the carotid bulb. 2. High-grade stenosis of the V4 segment left vertebral artery. 3. Less than 50% stenosis of the proximal left ICA. ACT 112: Negative or not required by law. The above report was generated using voice recognition software. It may contain grammatical, syntax or spelling errors. Electronically signed by: Dev Orozco M.D. 04/05/2023 4:10 PM Discharge Plan Visit Data Chief Complaint: Illness Stated Complaint: L HAND IS NUMB,SHAKEY ED Provider: Joseph Gonzalez Discharge Problem: Seizure-like activity, Glioblastoma, Episode of shaking, Speech abnormality Patient Disposition: Admitted As Inpatient Condition: Fair Forms Stand Alone Forms: My [facility] Prescriptions Prescriptions: No Action multivitamin [Multiple Vitamins] Tablet 2 tab PO QAM Patient Comments: gummies calcium carbonate-vitamin D3 600 mg-10 mcg (400 unit) capsule 1 cap PO QAM dutasteride [Avodart] 0.5 mg capsule 0.5 mg PO QAM Qty: 90 1RF metoprolol succinate 50 mg tablet extended release 24 hr 50 mg PO QAM Qty: 90 1RF lisinopril 10 mg tablet 10 mg PO QAM Qty: 90 3RF ondansetron 8 mg tablet,disintegrating 8 mg PO Q12H PRN (Reason: TAKE PRIOR TO CHEMO MED) nitroglycerin 0.4 mg tablet, sublingual 0.4 mg sublingual Q5M PRN (Reason: Chest Pain) Patient Comments: Never used Rx Instructions: do not exceed 3 doses per episode acetaminophen [Tylenol Extra Strength] 500 mg Tablet 500 - 1,000 mg PO UD PRN (Reason: Pain) Citrucel Sugar Free Powder 2 g PO DAILY Beano 450 unit Tablet,Disintegrating 450 unit PO BID PRN (Reason: Gi Upset) aspirin 81 mg Tablet,Delayed Release (Dr/Ec) 81 mg PO QAM Qty: 30 0RF famotidine 20 mg Tablet 20 mg PO QAM cholecalciferol (vitamin D3) [Vitamin D3] 125 mcg (5,000 unit) Tablet 125 mcg PO QAM atorvastatin 40 mg tablet 40 mg PO HS levetiracetam [Keppra] 500 mg tablet 500 mg PO BID 30 Days Qty: 60 2RF Referrals Referrals: Leonardo Gates CRNP [Primary Care Provider] - Discharge Problem: Speech abnormality Qualifiers: Speech disturbance type: unspecified speech disturbance Qualified Code(s): R 47.9 - Unspecified speech disturbances
--- NOTE | 2023-04-05 15:55 | CT Scan Report ---
CT SCAN OF THE BRAIN WITHOUT IV CONTRAST CLINICAL HISTORY: Left arm pain and numbness. COMPARISON STUDY: CT of the brain dated 03/28/2023 TECHNIQUE: Unenhanced axial CT scan of the brain is performed from the vertex to the skull base. A do se lowering technique was utilized adhering to the principles of ALARA. FINDINGS: Brain parenchyma: Focus of right posterior temporal encephalomalacia is unchanged and consistent with a site of previous surgical resection. Surrounding hypodensity is unchanged modest increased from pr evious. Hyperdense extra-axial fluid is again seen overlying the right convexity, and measures up to 5 mm in thickness. Intermediate density extra-axial fluid is seen overlying the posterior right conve xity at the vertex and measures up to 6 mm. This is also unchanged. There is age-related involutional change noting mild subcortical and periventricular microangiopathic disease. There is no hemorrhage, mass effect, or evidence of acute territorial ischemia by CT criteria. Olson-white matter differentia tion is preserved. Ventricles, sulci, cisterns: Prominent secondary to involutional change. Intracranial vasculature: There is atherosclerotic calcification of the cavernous carotid and vertebr al arteries. Calvarium: There is postsurgical change from right sided craniotomy. No destructive calvarial lesion is identified. Sinuses and mastoids: The visualized paranasal sinuses are clear. The mastoid air cells are well pneu matized. Orbits: The bony orbits are grossly intact. There are bilateral ocular lens implants. IMPRESSION: 1. Findings are similar to 03/28/2023 examination. 2. Again seen is postsurgical change from right-sided craniotomy and temporal lobe resection. Hypoden sity around the resection site is unchanged to modestly increased from previous and favors edema. Res idual tumoral would be possible to exclude. 3. Hyperdense extra-axial fluid along the right frontal convexity and more intermediate attenuation f luid along the high right posterior parietal convexity is unchanged. This likely represents acute to subacute versus acute on chronic subdural hemorrhage. Postsurgical change is comparison appears simil ar. Continued attention at follow-up is recommended. 4. Additional findings as above. ACT 112: Negative or not required by law. Electronically signed by: Joseph Duque M.D. 04/05/2023 3:54 PM
[2023-04-05 15:57] LABS: iSTAT Creatinine 0.7 mg/dl (0.6-1.3); iSTAT Hemoglobin 11.2 g/dl (14.0-18.0); iSTAT Ionized Calcium 1.06 mmol/l (1.12-1.32); iSTAT Potassium 3.8 mmol/L (3.3-5.0)
--- NOTE | 2023-04-05 16:02 | CT Scan Report ---
CTA ANGIOGRAPHY OF THE HEAD CLINICAL HISTORY: Left arm pain and numbness. History of glioblastoma. COMPARISON STUDY: MRI of the brain March 06, 2023. Head CT March 28, 2023. TECHNIQUE: Helical axial images of the head were obtained following uneventful intravenous administr ation of 118 cc of Optiray. Sagittal and coronal reconstructions were viewed as well as maximal inten sity projections on an independent 3-D workstation. Automated exposure control was utilized for the study. A dose lowering technique was utilized adhering to the principles of ALARA. CT DOSE: 1000.83 mGy.cm FINDINGS: Please note that the head CT will be reported separately. The previously described 6 mm hyp erdense extra-axial collection overlying the right cerebral hemisphere is similar to CT of March 042022. A 2.8 cm posterior right temporal lobe resection site is noted. There is associated edema, s table to slightly increased since head CT of March 28, 2023. Associated suspected hyperemia is not ed. There is extensive calcified plaque within the bilateral cavernous carotids. This results in mode rate stenosis of the right cavernous carotid and mild stenosis of the left cavernous carotid. No larg e vessel occlusion is identified. This exam is mildly compromised by motion artifact. There is suspec alicia moderate stenosis of the bilateral intracranial vertebral arteries. Basilar artery is patent. Ruben ateral posterior cerebral arteries are patent. There is no intracranial aneurysm. IMPRESSION: 1. No large vessel occlusion. No intracranial aneurysm. 2. Moderate stenosis of multiple intracranial vessels, as described above. Exam mildly compromised by motion artifact. 3. No significant change in the hyperdense extra-axial fluid collection overlying the right frontal c onvexity since prior CT. This is better depicted on the head CT which will be reported separately. 4. Posterior right temporal lobe resection site. Stable to slight increase in associated edema. This could reflect posttreatment change however residual/recurrent tumor could appear similar and findings are suboptimally assessed by CT. ACT 112: Negative or not required by law. Electronically signed by: Sami Hernandez M.D. 04/05/2023 3:59 PM
--- NOTE | 2023-04-05 16:11 | CT Scan Report ---
CT angio neck with con CLINICAL HISTORY: 77 years-old Male with left arm pain and numbness. Acute strokelike symptoms COMPARISON STUDY: CT head and CTA head of same day TECHNIQUE: Following the IV administration of 118 cc of Optiray, CT angiogram of the neck was perform ed from the aortic arch to the skull base. Images are reviewed in the axial, sagittal, and coronal pl anes. 3-D MIPS images are created and assessed. IV contrast was administered without complication. Al l measurements were calculated based on NASCET criteria. A dose lowering technique was utilized adhe ring to the principles of ALARA. FINDINGS: Study is motion degraded. 70% stenosis at the origin of the right ICA secondary to atherosclerotic plaque. There is less than 5 0% stenosis at the origin of the left ICA. The bilateral vertebral arteries are diminutive and patent . The imaged basilar artery is patent. High-grade stenosis within the V4 segment left vertebral arter y secondary to prominent calcified plaque. Lung apices appear clear without pneumothorax. Unremarkable soft tissues. No acute fracture. Degenera tive changes of the cervical spine. The study is motion degraded. Subcentimeter metallic density focu s within the left naris IMPRESSION: 1. 70% stenosis at the origin of the cervical segment right ICA secondary to prominent atheroscleroti c plaque of the carotid bulb. 2. High-grade stenosis of the V4 segment left vertebral artery. 3. Less than 50% stenosis of the proximal left ICA. ACT 112: Negative or not required by law. The above report was generated using voice recognition software. It may contain grammatical, syntax o r spelling errors. Electronically signed by: Dev Orozco M.D. 04/05/2023 4:10 PM
[2023-04-05] MEDS ORDERED: LACOSAMIDE 100 MG in SODIUM CHLORIDE 0.9% 50 ML IV STA (16:51)
--- NOTE | 2023-04-05 17:55 | History & Physical Report ---
Date of Service April 05, 2023 Assessment & Plan (1) Glioblastoma: Plan: Left arm shaking? Focal seizure activity 2/2 vasogenic edema 2/2 glioblastoma - P/w L arm shaking without LOC multiple episodes x1-2 days, stopped Keppra 36 hours ago due to mood liability. - glioblastoma s/p resection 01/2022 with 6 weeks of radiation and low-dose temozolomide 04/2022 and post chemoradiation 5 cycles of temozolomide completed 10/2022. Interval progression was noticed November 2022 and was reviewed at multidisciplinary tumor board, underwent resection 12/15/2022 with pathology consistent with recurrent glioblastoma. He was pending follow-up to start single agent bevacizumab in March 2023. CTA: 70% stenosis at the right ICA, high-grade stenosis of the V4 left vertebral artery, and less than 50% stenosis of the proximal left ICA. CTA-H naf. Multiple stenosis of multiple vessels, no change in extra-axial fluid collection overlying right frontal convexity, and stable to slight increase in edema around temporal lobe resection site possibly reflecting posttreatment change but from which residual/recurrent tumor cannot be excluded. CT of the head shows hyperdense extra-axial fluid on the right frontal convexity and more intermediate attenuation fluid around the right posterior parietal convexity unchanged from 03/28/2023. Likely representing subacute versus acute on chronic subdural hemorrhage postsurgical change appears similar to prior. Patient has no cardiac stents but extensive small vessel disease and has been recommended to continue aspirin 81 mg daily. Will continue this 04/06/2019 Case was reviewed with Dr. Trimble [facility] Neurosurgery. Likely seizure activity related to edema/swelling from known glioblastoma. Not a ongoing surgical candidate and no acute surgical intervention is recommended. Was recommended for Keppra wean, and transition to Vimpat 100 mg twice daily. Did not recommend transfer at this time. Will continue dexamethasone taper for vasogenic edema. Received 10 mg in ER; 8mg daily, taper gradually Patient was pending outpatient follow-up MRI brain with and without contrast, ordered as inpatient and pending - Starting chemo May [address] Shore at the [facility], also following with Neurologyw/ Dr. León. Neurology consulted. Continue Vimpat, may get an additional dose tonight. If patient has a recurrent seizure or seizure-like activity give 1 g of Depakote and avoid additional benzos if possible. No additional Keppra. Renal function and LFTs are normal . Neuro will see in consultation in AM. Appreciate recs. Seizure precautions continued. -Patient is high risk for interventions. Patient has 70% stenosis at the ipsilateral right ICA; however suspect his current symptoms are reflective of seizure and vasogenic edema rather than acute stroke pathology. Repeat MRI is pending. NIHSS QS (2) CAD (coronary artery disease): Plan: CAD, hypertension, history of MD Continue lisinopril Continue metoprolol Aspirin 81mg continued. No history of stents. Continue statin No chest pain, chest pressure, shortness of breath preceding presentation and high sensitive troponin is not (3) BPH (benign prostatic hyperplasia): Plan: BPH Continue dutasteride Plan DVT PPx: SCDs Diet: HH, Soft Bite Sized CODE: Full Dispo: PCU History of Present Illness Primary Care Provider: ELIZABET Pimentel Jose is a 77-year-old male with a past medical history of seizure, BPH, carotid stenosis, MD, glioblastoma s/p resection 01/2022 with 6 weeks of radiation and low-dose temozolomide 04/2022 and post chemoradiation 5 cycles of temozolomide completed 10/2022. Interval progression was noticed November 2022 and was reviewed at multidisciplinary tumor board, underwent resection 12/15/2022 with pathology consistent with recurrent glioblastoma. He was pending follow-up to start single agent bevacizumab this month. Per ER Sign Out: He presents to the ER with left hand numbness, tingling, and weakness which began abruptly approximately 3 to 4 hours before ER presentation. He had associated difficulty with speech and was seen emergently as a stroke alert. Patient was noted to have an ER visit a week ago for seizure and was placed on Keppra. He had a very labile mood on the Keppra and this was discontinued as an outpatient, has missed 2 doses. ER evaluation showed Note from 03/28/2023 was reviewed. Patient was seen for 10-minute tonic-clonic seizure with postictal period at that time. CT of the head was with small area bleed versus postsurgical change which was redemonstrated on CT today. This was discussed with neurosurgery at [place] at that time and was compared to their imaging and was felt to be stable and likely postoperative change at that time. Patient was started on Keppra and was comfortable and desired discharged home, patient was discharged home with Keppra prescription at that time - Placed on Keppra, pt discontinued due to angry/labile mood swings. 36 hours ago discontinued keppra. Move improved, but had uncontrolalble L arm shaking. Did have some speech changes while in the waiting room. - Brain mass related.- [facility] Neurosurgery. Likely seizure due to edema/swelling from known glioblastoma. Dr. Jules [facility] Neurosurg recommended Vimpat treatment and Keppra wean. Symptoms all resolved. No LOC. Vimpat 100mg BID, wean keppra. Per Pt/Family: Pt back to normal at time of reassessment/admitting assessment. L hand poor coordination at dinner last night, worse with lunch today. Seems more shakey, coming and going shaking spells/spasms. Currently feels better after getting medicines in ER. Denies numbness/tingling. Each shakin spell would last ~30 minutes, but seemed to last a little longer right before coming into the ER. No urinary or bowel incontinence/retention. BP much better since being in the ER, was >180-200s in the past week. Was on Keppra, last took 2-3 days ago No headache. No vision change. No leg weakness. No loss of conciousness No chest pain, no chest pressure No fevers/chills/sweats Did take his medications this morning. Pt has had history of coronary angioplasty but NO stents. Medical History: Reviewed Medications: Reviewed Surgical History: Reviewed Family history: Reviewed Allergies: Reviewed Social History: Reviewed. Former ETOH/tobacco in remission. Code Status: Full Allergies Allergy/AdvReac Type Severity Reaction Status Date / Time No Known Allergies Allergy Unknown Verified 04/05/23 18:26 Home Medications Medication Instructions Recorded Confirmed Type nitroglycerin 0.4 mg sublingual 0.4 mg sublingual Q5M PRN Chest 01/27/20 04/05/23 History tablet Pain multivitamin (Multiple Vitamins 2 tab PO QAM 02/02/22 04/05/23 History tablet) acetaminophen 500 mg tablet 500 - 1,000 mg PO UD PRN Pain 02/11/22 04/05/23 History (Tylenol Extra Strength) [id number] 450 unit 450 unit PO BID PRN Gi Upset 02/11/22 04/05/23 History disintegrating tablet (Beano) methylcellulose (laxative) 2 g PO QAM 02/11/22 04/05/23 History (Citrucel Sugar Free oral powder) ondansetron 8 mg disintegrating 8 mg PO Q12H PRN TAKE PRIOR TO 02/11/22 04/05/23 History tablet CHEMO MED aspirin 81 mg tablet,delayed 81 mg PO QAM #30 tabs 02/17/22 04/05/23 Rx release dutasteride 0.5 mg capsule 0.5 mg PO QAM #90 caps 02/06/23 04/05/23 Rx (Avodart) metoprolol succinate 50 mg 50 mg PO QAM #90 tabs 02/10/23 04/05/23 Rx tablet,extended release 24 hr atorvastatin 40 mg tablet 40 mg PO HS 02/22/23 04/05/23 History cholecalciferol (vitamin D3) 125 125 mcg PO QAM 02/22/23 04/05/23 History mcg (5,000 unit) tablet (Vitamin D3) famotidine 20 mg tablet 20 mg PO QAM 02/22/23 04/05/23 History lisinopril 10 mg tablet 10 mg PO QAM #90 tabs 02/27/23 04/05/23 Rx Past Med/Surg History Medical History (Updated 03/28/23 @ 13:09 by Terrence Barrios MD) Chronic cough Diverticulosis Glioblastoma (01/04/22) Dx 01/2022 last chemo 11/2022, surgery 12/2022 [facility] Nasal congestion Hypertension Prostate nodule Post-void dribbling Atherosclerotic heart disease of [place] coronary artery without angina pectoris History of COVID-19 03/2020 CAD (coronary artery disease) inferior wall MD 1989 s/p PTCA of the CX artery BPH (benign prostatic hyperplasia) hx Hyperlipidemia Carotid stenosis, left s/p Left CEA with Bovine Patch Angioplasty (2019) Myocardial Infarction 1989 GERD (gastroesophageal reflux disease) Surgical History (Updated 03/02/23 @ 11:43 by Tuyet Mayers RN) Port-A-Cath in place (03/02/23) Insertion of Right Subclavian Access Port with Fluoroscopy(Right) - Jewel Clarke MD, FACS History of anesthesia complications "During prior anesthetic on 01/22 patient was noted to have labile pressures during induction with propofol, first with extreme hypertension (systolic up to 196) and then hypotension requiring NE gtt" per 12/2022 [facility] anesthesia records Hx of transurethral resection of prostate 2017 History of craniotomy (12/15/22) 1. Redo Right Temporal craniotomy for resection of brain lesion. 2. Use of Stealth neuronavigation. Dr. Macario Jordan at [facility] S/P bronchoscopy 02/2022 History of craniotomy 01/04/22 History of cataract surgery R/L S/P carotid endarterectomy Left CEA with Bovine Patch Angioplasty (2019) History of cystoscopy History of colonoscopy History of tooth extraction Hx of angioplasty 1989 [facility] Family History Father , 86yo Lung cancer Myocardial infarction Hypertension Mother , 92yo Pacemaker Hypertension Sister H/O carotid endarterectomy Stroke following surgery; Hypertension Dyslipidemia Sister Dyslipidemia Hypertension Melanoma Sister Hypertension Denies family history of Ovarian cancer Prostate cancer Breast cancer Colorectal cancer Social History Smoking Status: Former smoker Tobacco Type: Cigarettes Age Started Using Tobacco: 13; Age Quit Using Tobacco: 38; packs per day: 2; Cigarettes Per Day: [id number]; Second Hand Exposure: Yes (hx as child); Do You Dip or Chew Tobacco: No; Hx Alcohol Use: Yes (hx none in last 30 years) Hx Substance Use: No Preferred Language: Telugu Communication Ability: Effective Visual Impairment: No Limitations Hearing Ability: Use of Hearing Aid Second Miller Required: No Beliefs That Will Affect Care: Mormonism Mormonism Beliefs: Church marital status: marital status details: Amrita Current Living Situation: Spouse current occupational status: retired How many Children do You have: 0 Feels Safe at Home: Yes Childhood Exposure to Second-Hand Smoke: Yes (father ) Diet: regular Diet Comment: attempts a healthy diet caffeine: Yes (3 cups daily ) during the past year weight has: remained stable Dental Care, Regularly: Yes Physical Activity Frequency: Daily Seatbelt Use: always Sunscreen Use: No Assistive Devices: Cane, Denture - Upper, Denture - Lower, Glasses and Hearing Aid - Bilateral Physical Exam Physical Exam: General: A&Ox3. NAD. Cooperative. Pleasant HEENT: Pupils equal and reactive to light, EOM without nystagmus, no visual field cuts, hearing grossly intact. Speech is fluent Pulm: CTAB A&P. -wheezes, -rales, -rhonchi. Symmetrical chest rise. No increased work of breathing. No respiratory distress. Cardiac: RRR, -mrg. Radial pulses intact and symmetrical. Abdominal: Nontender, nondistended, soft. BS present. Extremities: Glass Block Bender strength, elbow flexion, hip flexion, ankle dorsi/plantarflexion 5/5 without deficit at time of bedside assessment. Sensation intact to soft touch in hands and feet Results & Data Results & Data Vital Signs (Past 12 Hours) Vital Signs Temp Pulse Pulse Resp BP BP Pulse Ox 04/05/23 17:00 100 04/05/23 16:32 86 25 H 98 04/05/23 16:32 174/105 H 04/05/23 16:30 94 H 19 100 04/05/23 16:00 164/92 H 04/05/23 16:00 85 22 99 04/05/23 15:53 91 H 20 183/103 H 96 04/05/23 15:44 89 26 H 96 04/05/23 15:43 87 04/05/23 13:05 36.5 C 92 H 18 139/94 95 O2 Del Method 04/05/23 17:00 04/05/23 16:32 04/05/23 16:32 04/05/23 16:30 04/05/23 16:00 04/05/23 16:00 04/05/23 15:53 Room Air 04/05/23 15:44 04/05/23 15:43 04/05/23 13:05 PG Care Time/CCT Total # of Minutes Spent Total Time Spent with Patient: Total time spent is greater than 50% in coordination of care (as documented) at patient's floor/unit and/or counseling patient: Coding Level of Care Code 22741 INT INP/OBS CARE 3/75MIN Diagnoses Glioblastoma C71.9 CAD (coronary artery disease) I25.10 BPH (benign prostatic hyperplasia) N40.0
[2023-04-05] MEDS ORDERED: ACETAMINOPHEN 325 MG TAB PO PRN (22:11)
[2023-04-05] MEDS: ATORVASTATIN 40 MG TAB PO SCH (22:58)
[2023-04-05] MEDS: LACOSAMIDE 100 MG in SODIUM CHLORIDE 0.9% 50 ML IV SCH (23:01)
--- NOTE | 2023-04-06 07:14 | Hospitalist Progress Note ---
Date of Service April 06, 2023 Assessment & Plan (1) Glioblastoma: (2) Hypertension: (3) BPH (benign prostatic hyperplasia): (4) CAD (coronary artery disease): Plan Jose is a 77-year-old male with a past medical history of seizure, BPH, carotid stenosis, MD, glioblastoma s/p resection 01/2022 with 6 weeks of radiation and low-dose temozolomide 04/2022 and post chemoradiation 5 cycles of temozolomide completed 10/2022. Interval progression was noticed November 2022 and was reviewed at multidisciplinary tumor board, underwent resection 12/15/2022 with pathology consistent with recurrent glioblastoma. He was pending follow-up to start single agent bevacizumab this month. 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 [place]im[place] [facility]. Likely seizure activity related to edema/swelling from known glioblastoma. Not a ongoing surgical candidate and no acute surgical intervention is recommended. - Starting chemo May [address] Shore at the [facility], also following with Neurologyw/ Dr. León. - brain MRI shows postsurgical change from right temporal lobe resection, edema around the resection cavity is similar to 03/06/2023, irregular enhancement around the resection cavity is similar in distribution to the 03/06/2023 examination, patchy foci of FLAIR signal abnormality within the left occipital lobe without corresponding enhancement, mixed signal intensity extra-axial collection along the right convexity is unchanged from recent CT scans= acute to subacute versus acute on chronic subdural hemorrhage - if patient has a recurrent seizure or seizure-like activity give 1 g of Depakote and avoid additional benzos if possible. No additional Keppra. - continue seizure precautions - consulted oncology and neurology, awaiting recommendations - continue Vimpat 100 mg twice daily - continue dexamethasone taper CAD (coronary artery disease) Hypertension, History of MD CTA: 70% stenosis at the right ICA, high-grade stenosis of the V4 left vertebral artery, and less than 50% stenosis of the proximal left ICA - Continue lisinopril Continue metoprolol Aspirin 81mg continued. No history of stents. Continue statin No chest pain, chest pressure, shortness of breath preceding presentation and high sensitive troponin is not elevated BPH (benign prostatic hyperplasia) Continue dutasteride DVT PPx: SCDs Admission and Anticipated Discharge Date Admission Date: April 05, 2023 Supervising Physician Co-Signing Physician Notes I personally examined the patient and verified all cook points of history and exam, discussed case, and agree with decision making with Dr Young feeling OK. no new complaints. mostly worried about getting home before snowstorm (~48hrs) vitals noted nad heent nc at mmm breathing unlabored no accessory muscles good effort skin no rashes no pallor or icterus GBM - appreciate oncology input, continue vimpat pending neuro input. hopefully home tomorrow as long as ongoing stability otherwise as above Subjective Pt is a 77 yo male with a past medical history of recurrent glioblastoma with resection x2 (last one 12/2022), seizures secondary to s/p resection, BPH, hx MD, HLD, and HTN who presents to the hospital on 04/04/22 for left sided weakness. Today, spoke to pt while he is down in the ED. Pt appears very agitated and frustrated, sitting on edge of bed. He states that he is just tired of medical providers pushing pills on him and that he is frustrated that he waited around all night for nothing to happen here. He states he wants to go home. His is present. He states that ever since he started the kera, he has no longer felt like himself. He states now he feels angry at everyone and for everything. He states he is usually a nice ariana and just wants to get back to being himself and plans to go home today because he states unless we can help him do that without pushing more pills on him, he does not want our help. He is agreeable to waiting for specialists to see him today but otherwise states he does not care to stay any longer and "waste any more time." states she is just worried about him. Review of Systems Review of Systems: Per HPI. Physical Exam Physical Exam: General:Alert and oriented, no acute distress, agitated HEENT: Normocephalic, moist oral mucosa, Resp:No increased work of breathing Skin: Warm, pink, dry, Psych: Mood-affect congruence. Results & Data Results & Data Vital Signs (Past 12 Hours) Vital Signs Pulse Pulse Resp BP Pulse Ox Pulse Ox O2 Del Method 04/06/23 04:28 88 17 133/108 H 97 Room Air 04/06/23 02:18 84 04/05/23 23:05 91 H 24 158/87 H 95 Room Air 04/05/23 22:55 95 04/05/23 22:50 88 24 147/99 H 96 Room Air 04/05/23 19:45 72 04/05/23 19:45 74 21 132/64 95 Room Air O2 Del Method 04/06/23 04:28 04/06/23 02:18 04/05/23 23:05 04/05/23 22:55 Room Air 04/05/23 22:50 04/05/23 19:45 04/05/23 19:45 Resident Activity Tracking Resident Involvement: Resident Care Provided Care Provided: Adult Hospital Medicine
[2023-04-06] MEDS ORDERED: GADOBUTROL 65ML VIAL IV ONE (09:08)
--- NOTE | 2023-04-06 09:57 | Magnetic Resonance Report ---
MRI OF THE BRAIN COMBO CLINICAL HISTORY: Seizure. Glioblastoma. COMPARISON STUDY: CT of the brain dated 04/05/2023. MRI of the brain dated 03/06/2023. TECHNIQUE: MRI of the brain was performed utilizing various T1 and T2-weighted sequences in the axial , sagittal, and coronal planes. Contrast-enhanced sequences were acquired following the administratio n of 8.5 cc of Gadavist. FINDINGS: Brain parenchyma: Again seen is right posterior temporal encephalomalacia at a site of prior tumor re section. There is persistent irregular enhancement around the resection cavity in the right temporal lobe extending into the right occipital lobe. This is similar distribution to the 03/06/2023 examinati on and favors residual tumor. Enhancement appears less confluent than on the prior examination. The d egree of surrounding edema is similar to the 03/06/2023 examination. There are foci of patchy FLAIR si gnal abnormality within the left occipital lobe seen on coronal images #21 and #22. This is similar t o previous and shows no abnormal postcontrast enhancement. There is no hemorrhage or midline shift. N o restricted diffusion is seen typical for acute ischemia. Again seen is a mixed signal intensity ext ra-axial collection along the convexity. The more T1 hyperintense component anteriorly measures up to 7 mm thickness. A more isointense component posteriorly also measures a maximum of 7 mm. The cerebel lar tonsils are normal in configuration. Ventricles, sulci, and cisterns: Normal in configuration. Pituitary and sella: Unremarkable. Intracranial vasculature: Normal flow voids are maintained at the skull base. Orbits: The bony orbits are grossly intact. Orbital contents are normal in appearance noting bilatera l ocular lens implants. Sinuses and mastoids: Clear. Calvarium: History surgical change from right-sided craniotomy. No destructive calvarial lesion is id entified. Cervical cord: Partially visualized cervical spinal cord is normal in morphology and signal intensity . IMPRESSION: 1. There is no parenchymal hemorrhage, midline shift, or evidence of acute ischemia. 2. Again seen is postsurgical change from right temporal lobe resection. The degree of edema around t he resection cavity is similar to the 03/06/2023 examination. 3. Irregular enhancement around the resection cavity is similar in distribution to the 03/06/2023 exam ination and favors residual tumor. Enhancement appears less confluent than on the prior examination. 4. There are patchy foci of FLAIR signal abnormality within the left occipital lobe without correspon ding enhancement. This is indeterminant and similar to previous. Nonenhancing tumor would be impossib le to exclude. Continued attention at follow-up is recommend. 5. A mixed signal intensity extra-axial collection along the right convexity is unchanged from recent CT scans. This likely represents acute to subacute versus acute on chronic subdural hemorrhage. Post surgical change could appear similar but is considered less likely. Continued attention at follow-up is recommended. ACT 112: Negative or not required by law. Electronically signed by: Joseph Duque M.D. 04/06/2023 9:54 AM
[2023-04-06] MEDS: METOPROLOL SUCC 50MG EXT REL TAB PO SCH (10:40)
[2023-04-06] MEDS: MULTIVITAMIN TAB PO SCH (10:47)
[2023-04-06] MEDS: FINASTERIDE 5 MG TAB PO SCH (10:50)
[2023-04-06] MEDS: ASPIRIN 81 MG ECTAB PO SCH (10:50)
[2023-04-06] MEDS: lisinopril 10 MG TAB PO SCH (10:50)
[2023-04-06] MEDS: LACOSAMIDE 100 MG in SODIUM CHLORIDE 0.9% 50 ML IV SCH ×2 (12:15→22:09)
[2023-04-06] MEDS ORDERED: dexAMETHasone 8 MG in SYRINGE 0 ML IV SCH (17:00)
[2023-04-06] MEDS ORDERED: DEXAMETHASONE SOD INJ 4 MG/ML VIAL IV SCH (17:00)
--- NOTE | 2023-04-06 17:09 | Oncology Consultation ---
Date of Consultation April 06, 2023 Assessment & Plan (1) Glioblastoma: For glioblastoma, I reviewed the latest MRI which continues to reveal residual disease in the brain. At this point he is on carmustine. He is neck cycle of carmustine is due for end of April. We will continue per schedule. At this t vivian no further intervention is warranted given the prior treatment and relapsed glioblastoma multiforme . From an oncology standpoint we will resume outpatient treatment once the patient is discharged (2) New onset seizure: Previously the patient discontinued Keppra based on his own will given that it gave him cravings for alcohol. At this point treatment for seizure and seizure prophylaxis per our neurology colleagues given his complicated history with substance abuse as well as glioblastoma Plan Medical oncology will continue to follow and make appropriate recommendations as needed. For now we recommend outpatient follow-up in the oncology clinic for treatment of relapsed/recurrent glioblastoma multiforme History of Present Illness Reason for Consultation: Glioblastoma multiforme Attending Physician: Kirby Gallagher DO History of Present Illness The patient is a very pleasant 77-year-old gentleman, very well-known to me from outpatient practice. He has a history of glioblastoma multiforme which is relapsed. He is currently under my treatment with carmustine based on the recommendations of my neuro oncological colleagues at [place]. He received cycle 1 day 1 of carmustine on 03/07/2023. Subsequently we had been monitoring his labs very closely for evidence of myelosuppression. He did not have any evidence of myelosuppression. However late March he came to [facility] with an episode of seizure. At that time a CT head was performed, the results of which were noted. He was started on antiseizure prophylaxis with Keppra however the patient discontinued Keppra at his own accord after it gave him cravings for alcohol. Subsequently I referred him to one of our neurology colleagues for outpatient evaluation for possible seizure and seizure episode and antiseizure prophylaxis. He is yet to see one of my colleagues in neurology. He is again in the [facility] ER after another seizure episodes. The patient does not drink alcohol, gets very aggressive whenever anyone talks about alcohol given his prior history with alcoholism, PTSD. He had an MRI of the brain during this admission which revealed residual glioblastoma multiforme, with postsurgical changes on the right temporal lobe. Irregular enhancement around the resection cavity. Allergies Allergy/AdvReac Type Severity Reaction Status Date / Time No Known Allergies Allergy Unknown Verified 04/05/23 18:26 Home Medications Medication Instructions Recorded Confirmed Type nitroglycerin 0.4 mg sublingual 0.4 mg sublingual Q5M PRN Chest 01/27/20 04/05/23 History tablet Pain multivitamin (Multiple Vitamins 2 tab PO QAM 02/02/22 04/05/23 History tablet) acetaminophen 500 mg tablet 500 - 1,000 mg PO UD PRN Pain 02/11/22 04/05/23 History (Tylenol Extra Strength) [id number] 450 unit 450 unit PO BID PRN Gi Upset 02/11/22 04/05/23 History disintegrating tablet (Beano) methylcellulose (laxative) 2 g PO QAM 02/11/22 04/05/23 History (Citrucel Sugar Free oral powder) ondansetron 8 mg disintegrating 8 mg PO Q12H PRN TAKE PRIOR TO 02/11/22 04/05/23 History tablet CHEMO MED aspirin 81 mg tablet,delayed 81 mg PO QAM #30 tabs 02/17/22 04/05/23 Rx release dutasteride 0.5 mg capsule 0.5 mg PO QAM #90 caps 02/06/23 04/05/23 Rx (Avodart) metoprolol succinate 50 mg 50 mg PO QAM #90 tabs 02/10/23 04/05/23 Rx tablet,extended release 24 hr atorvastatin 40 mg tablet 40 mg PO HS 02/22/23 04/05/23 History cholecalciferol (vitamin D3) 125 125 mcg PO QAM 02/22/23 04/05/23 History mcg (5,000 unit) tablet (Vitamin D3) famotidine 20 mg tablet 20 mg PO QAM 02/22/23 04/05/23 History lisinopril 10 mg tablet 10 mg PO QAM #90 tabs 02/27/23 04/05/23 Rx Patient History Medical History (Updated 04/06/23 @ 14:09 by Vee Young DO) CAD (coronary artery disease) inferior wall UT 1989 s/p PTCA of the CX artery Chronic cough Diverticulosis Glioblastoma (01/04/22) Dx 01/2022 last chemo 11/2022, surgery 12/2022 [facility] Nasal congestion Hypertension Prostate nodule Post-void dribbling Atherosclerotic heart disease of [place] coronary artery without angina pectoris History of COVID-19 03/2020 BPH (benign prostatic hyperplasia) hx Hyperlipidemia Carotid stenosis, left s/p Left CEA with Bovine Patch Angioplasty (2019) Myocardial Infarction 1989 GERD (gastroesophageal reflux disease) Surgical History (Updated 03/02/23 @ 11:43 by Tuyet Mayers RN) Port-A-Cath in place (03/02/23) Insertion of Right Subclavian Access Port with Fluoroscopy(Right) - Jewel Clarke MD, FACS History of anesthesia complications "During prior anesthetic on 01/22 patient was noted to have labile pressures during induction with propofol, first with extreme hypertension (systolic up to 196) and then hypotension requiring NE gtt" per 12/2022 [facility] [place] Hx of transurethral resection of prostate 2017 History of craniotomy (12/15/22) 1. Redo Right Temporal craniotomy for resection of brain lesion. 2. Use of Stealth neuronavigation. Dr. Macario Jordan at [facility] S/P bronchoscopy 02/2022 History of craniotomy 01/04/22 History of cataract surgery R/L S/P carotid endarterectomy Left CEA with Bovine Patch Angioplasty (2019) History of cystoscopy History of colonoscopy History of tooth extraction Hx of angioplasty 1989 [facility] Family History Father , 86yo Lung cancer Myocardial infarction Hypertension Mother , 92yo Pacemaker Hypertension Sister H/O carotid endarterectomy Stroke following surgery; Hypertension Dyslipidemia Sister Dyslipidemia Hypertension Melanoma Sister Hypertension Denies family history of Ovarian cancer Prostate cancer Breast cancer Colorectal cancer Social History Smoking Status: Former smoker Tobacco Type: Cigarettes Age Started Using Tobacco: 13; Age Quit Using Tobacco: 38; packs per day: 2; Cigarettes Per Day: [id number]; Second Hand Exposure: Yes (hx as child); Do You Dip or Chew Tobacco: No; Hx Alcohol Use: No Hx Substance Use: No Preferred Language: Chinese Communication Ability: Effective Visual Impairment: No Limitations Hearing Ability: Use of Hearing Aid Grade Recorder Required: No Beliefs That Will Affect Care: None marital status: marital status details: Amrita Current Living Situation: Spouse current occupational status: retired How many Children do You have: 0 Other Information That Helps Us Care for You: No Feels Safe at Home: Yes Childhood Exposure to Second-Hand Smoke: Yes (father ) Diet: regular Diet Comment: attempts a healthy diet caffeine: Yes (3 cups daily ) during the past year weight has: remained stable Dental Care, Regularly: Yes Physical Activity Frequency: Daily Seatbelt Use: always Sunscreen Use: No Assistive Devices: Cane Results & Data Vital Signs (Past 12 Hours) Vital Signs Temp Pulse Pulse Resp BP Pulse Ox Pulse Ox 04/06/23 16:09 67 04/06/23 15:47 36.6 C 74 18 150/81 H 99 04/06/23 10:50 94 O2 Del Method O2 Del Method 04/06/23 16:09 04/06/23 15:47 Room Air 04/06/23 10:50 Room Air
--- NOTE | 2023-04-06 17:35 | Billing Data ---
Date of Service April 06, 2023 Coding Level of Care Code 84487 SUB INP/OBS CARE
[2023-04-06] MEDS: ATORVASTATIN 40 MG TAB PO SCH (19:38)
[2023-04-07] MEDS ORDERED: OLANZapine 10 MG/2.1 ML SDV IM STA (00:20)
--- NOTE | 2023-04-07 06:51 | Hospitalist Progress Note ---
Date of Service April 07, 2023 Assessment & Plan (1) Glioblastoma: (2) Hypertension: (3) BPH (benign prostatic hyperplasia): (4) CAD (coronary artery disease): Plan Jose is a 77-year-old male with a past medical history of seizure, BPH, carotid stenosis, CA, glioblastoma s/p resection 01/2022 with 6 weeks of radiation and low-dose temozolomide 04/2022 and post chemoradiation 5 cycles of temozolomide completed 10/2022. Interval progression was noticed November 2022 and was reviewed at multidisciplinary tumor board, underwent resection 12/15/2022 with pathology consistent with recurrent glioblastoma. He was pending follow-up to start single agent bevacizumab this month. 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 Trimble [facility] [place]. Likely seizure activity related to edema/swelling from known glioblastoma. Not a ongoing surgical candidate and no acute surgical intervention is recommended. - Starting chemo May [address] Shore at the [facility], also following with Neurologyw/ Dr. León. - brain MRI shows postsurgical change from right temporal lobe resection, edema around the resection cavity is similar to 03/06/2023, irregular enhancement around the resection cavity is similar in distribution to the 03/06/2023 examination, patchy foci of FLAIR signal abnormality within the left occipital lobe without corresponding enhancement, mixed signal intensity extra-axial collection along the right convexity is unchanged from recent CT scans= acute to subacute versus acute on chronic subdural hemorrhage - if patient has a recurrent seizure or seizure-like activity give 1 g of Depakote and avoid additional benzos if possible. No additional Keppra. - continue seizure precautions - consulted oncology and neurology, awaiting recommendations - continue Vimpat 100 mg twice daily - continue dexamethasone taper CAD (coronary artery disease) Hypertension, History of [place] CTA: 70% stenosis at the right ICA, high-grade stenosis of the V4 left vertebral artery, and less than 50% stenosis of the proximal left ICA - Continue lisinopril Continue metoprolol Aspirin 81mg continued. No history of stents. Continue statin No chest pain, chest pressure, shortness of breath preceding presentation and high sensitive troponin is not elevated BPH (benign prostatic hyperplasia) Continue dutasteride DVT PPx: SCDs Admission and Anticipated Discharge Date Admission Date: April 05, 2023 Subjective Pt is a 77 yo male with a past medical history of recurrent glioblastoma with resection x2 (last one 12/2022), seizures secondary to s/p resection, BPH, hx CA, HLD, and HTN who presents to the hospital on 04/04/22 for left sided weakness. Today, Review of Systems Review of Systems: Per HPI. Physical Exam Physical Exam: General:Alert and oriented, no acute distress, agitated HEENT: Normocephalic, moist oral mucosa, Resp:No increased work of breathing Skin: Warm, pink, dry, Psych: Mood-affect congruence. Results & Data Results & Data Vital Signs (Past 12 Hours) Vital Signs Temp Pulse Pulse Resp BP Pulse Ox O2 Del Method 04/07/23 02:29 36.5 C 71 18 148/75 H 95 Room Air 04/07/23 00:00 75 04/06/23 23:00 36.6 C 73 16 120/64 97 Room Air 04/06/23 19:40 Room Air 04/06/23 19:00 36.6 C 84 19 128/71 98 Room Air
[2023-04-07] MEDS: MULTIVITAMIN TAB PO SCH (08:36)
[2023-04-07] MEDS: lisinopril 10 MG TAB PO SCH (08:36)
[2023-04-07] MEDS: METOPROLOL SUCC 50MG EXT REL TAB PO SCH (08:36)
[2023-04-07] MEDS: ASPIRIN 81 MG ECTAB PO SCH (08:36)
[2023-04-07] MEDS: FINASTERIDE 5 MG TAB PO SCH (08:36)
[2023-04-07] MEDS: LACOSAMIDE 100 MG in SODIUM CHLORIDE 0.9% 50 ML IV SCH (10:23)
[2023-04-07 11:44] LABS: Basophils # (auto) 0.01 K/uL (0.00-0.20); Basophils % (auto) 0.2 %; Hematocrit (blood only) 34.4 % (42.0-52.0); Hemoglobin 11.8 g/dl (14.0-18.0); Immature Granulocytes # (auto) 0.04 K/uL (0.01-0.20); Immature Granulocytes % (auto) 0.6 %; Mean Corpuscular Hemoglobin 32.5 pg (25.0-34.0); Mean Corpuscular Hgb Conc 34.3 g/dL (32.0-36.0); Mean Corpuscular Volume 94.8 fL (80.0-100.0); Monocytes # (auto) 0.57 K/uL (0.11-0.59); Monocytes % (auto) 8.6 %; Neutrophils # (auto) 5.23 K/uL (1.40-6.50); Neutrophils % (auto) 78.6 %; Platelet Count 301 K/uL (130-400); RDW Coefficient of Variation 15.1 % (11.5-14.5); Red Blood Count 3.63 M/uL (4.70-6.10); White Blood Count 6.65 K/ul (4.8-10.8)
[2023-04-07 11:59] LABS: BUN Creatinine Ratio 32.4 (10-20); Calcium 8.8 mg/dl (8.6-10.3); Creatinine Clr Calc Pharmacy 84.2 ml/min; Est GFR (African American) 102.4 ml/min; Est GFR (Non-African American) 88.3 ml/min; Magnesium 2.1 mg/dl (1.7-2.4); Phosphorus 3.3 mg/dl (2.5-4.9); Potassium 4.2 mmol/L (3.5-5.1)
--- NOTE | 2023-04-07 12:39 | Neurology Consultation ---
Date of Consultation April 07, 2023 Assessment & Plan (1) New onset seizure: (2) Glioblastoma: Plan This patient has a right posterior temporal glioblastoma multiforme post surgery, radiation, and chemotherapy. He had a recurrence and a second surgery in December 2022. 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 He had depression and anger side effects to levetiracetam and stopped it on his own. Levetiracetam can cause behavioral, cognitive, and mood issues. He is stable currently but has some residual clumsiness weakness and abnormal movements of the left hand. These are likely postictal phenomenon. There is no evidence of new stroke. 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 Keep 81 mg aspirin daily 2. Continue lacosamide 100 mg p.o. twice daily 3. Avoid levetiracetam 4. If he has can continued movement issues I would initiate Depakote ER (24- hour release) 500 mg a day adding that to the lacosamide. This could be titrat ed and eventually replace lacosamide if able. 5. Could follow-up with neurology in 3 to 4 weeks as an outpatient with PA if desired. 6. Follow-up with [facility] oncology and neurosurgery Overall, I spent a total of 75 minutes with this case including review of records, review of MRI films, direct evaluation the patient at bedside, report generation, and discussion of the case with the patient, , RN, and niece at bedside and Dr. Gallagher including differential diagnosis and treatment options. History of Present Illness Reason for Consultation: Patient is a 77-year-old, who I was asked to see at the request of , for neurologic consultation regarding seizures and brain tumor Requesting Physician: Dr. Young Attending Physician: Kirby Gallagher DO History of Present Illness Patient was discovered to have a right posterior temporal mass in the fall 2021 he underwent a gross total resection in January [address] 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 Early in 2022 he completed 6 weeks of involved field radiation to the head and concurrent low-dose temozolomide. After this he was on adjuvant temozolomide for 5 cycles completing in October 2022. MRI in November 2022 demonstrated an interval progression and he had a second tumor resection December 2022 with pathology showing recurrent glioblastoma. There was consideration of using BCNU but this was not initiated. Following the surgery in December he was doing well with no further symptoms although his gait was a little bit affected. He was adamant that his left upper extremity did not have any clumsiness/weakness/numbness. He was having some sort of vision problem and saw an eye doctor for this but I do not have these results. On March 28 he had a witnessed () 15-20 minute generalized tonic-clonic seizure, with movements all over and unresponsiveness. In the emergency room he was back to baseline and was given levetiracetam loading dose and sent home on 500 mg twice a day. The patient felt that the levetiracetam made him angry and depressed and he stopped it on his own. On April 05 he had an episode of left hand numbness, weakness, and shaking on and off the entire day. He was given 2 g of levetiracetam IV and then 100 mg of lacosamide IV. He has not had any seizure activity or movements since. MRI of the brain showed no new issues compared to March 05 scan. There may be some residual tumor and he has developed some nonspecific white matter patches on the left side (possible small vessel ischemia of an old nature versus tumor. He still has some weakness and numbness in his left hand. He denies any symptoms in his legs or face. Allergies Allergy/AdvReac Type Severity Reaction Status Date / Time No Known Allergies Allergy Unknown Verified 04/05/23 18:26 Home Medications Medication Instructions Recorded Confirmed Type multivitamin (Multiple Vitamins 2 tab PO QAM 02/02/22 04/05/23 History tablet) acetaminophen 500 mg tablet 500 - 1,000 mg PO UD PRN Pain 02/11/22 04/05/23 History (Tylenol Extra Strength) [id number] 450 unit 450 unit PO BID PRN Gi Upset 02/11/22 04/05/23 H istory disintegrating tablet (Beano) methylcellulose (laxative) 2 g PO QAM 02/11/22 04/05/23 History (Citrucel Sugar Free oral powder) ondansetron 8 mg disintegrating 8 mg PO Q12H PRN TAKE PRIOR TO 02/11/22 04/05/23 History tablet CHEMO MED aspirin 81 mg tablet,delayed 81 mg PO QAM #30 tabs 02/17/22 04/05/23 Rx release dutasteride 0.5 mg capsule 0.5 mg PO QAM #90 caps 02/06/23 04/05/23 Rx (Avodart) metoprolol succinate 50 mg 50 mg PO QAM #90 tabs 02/10/23 04/05/23 Rx tablet,extended release 24 hr atorvastatin 40 mg tablet 40 mg PO HS 02/22/23 04/05/23 History cholecalciferol (vitamin D3) 125 125 mcg PO QAM 02/22/23 04/05/23 History mcg (5,000 unit) tablet (Vitamin D3) famotidine 20 mg tablet 20 mg PO QAM 02/22/23 04/05/23 History lisinopril 10 mg tablet 10 mg PO QAM #90 tabs 02/27/23 04/05/23 Rx nitroglycerin 0.4 mg sublingual 0.4 mg sublingual Q5M PRN Chest 04/07/23 Rx tablet Pain #25 tabs Patient History Medical History CAD (coronary artery disease) inferior wall NV 1989 s/p PTCA of the CX artery Chronic cough Diverticulosis Glioblastoma (01/04/22) Dx 01/2022 last chemo 11/2022, surgery 12/20[place] [facility] [place] Nasal congestion Hypertension Prostate nodule Post-void dribbling Atherosclerotic heart disease of teller coronary artery without angina pectoris History of COVID-19 03/2020 BPH (benign prostatic hyperplasia) hx Hyperlipidemia Carotid stenosis, left s/p Left CEA with Bovine Patch Angioplasty (2019) Myocardial Infarction 1989 GERD (gastroesophageal reflux disease) Surgical History Port-A-Cath in place (03/02/23) Insertion of Right Subclavian Access Port with Fluoroscopy(Right) - Jewel Clarke MD, FACS History of anesthesia complications "During prior anesthetic on 01/22 patient was noted to have labile pressures during induction with propofol, first with extreme hypertension (systolic up to 196) and then hypotension requiring NE gtt" per 12/2022 [facility] [place] Hx of transurethral resection of prostate 2017 History of craniotomy (12/15/22) 1. Redo Right Temporal craniotomy for resection of brain lesion. 2. Use of Stealth neuronavigation. Dr. Macario Jordan at [facility] S/P bronchoscopy 02/2022 History of craniotomy 01/04/22 History of cataract surgery R/L S/P carotid endarterectomy Left CEA with Bovine Patch Angioplasty (2019) History of cystoscopy History of colonoscopy History of tooth extraction Hx of angioplasty 1989 [facility] Family History Father , 86yo Lung cancer Myocardial infarction Hypertension Mother , 92yo Pacemaker Hypertension Sister H/O carotid endarterectomy Stroke following surgery; Hypertension Dyslipidemia Sister Dyslipidemia Hypertension Melanoma Sister Hypertension Denies family history of Ovarian cancer Prostate cancer Breast cancer Colorectal cancer Social History Smoking Status: Former smoker Tobacco Type: Cigarettes Age Started Using Tobacco: 13; Age Quit Using Tobacco: 38; packs per day: 2; Cigarettes Per Day: [id number]; Second Hand Exposure: Yes (hx as child); Do You Dip or Chew Tobacco: No; Hx Alcohol Use: No Hx Substance Use: No Preferred Language: Mongolian Communication Ability: Effective Visual Impairment: No Limitations Hearing Ability: Use of Hearing Aid Lyric Writer Required: No Beliefs That Will Affect Care: None marital status: marital status details: Amrita Current Living Situation: Spouse current occupational status: retired How many Children do You have: 0 Other Information That Helps Us Care for You: No Feels Safe at Home: Yes Childhood Exposure to Second-Hand Smoke: Yes (father ) Diet: regular Diet Comment: attempts a healthy diet caffeine: Yes (3 cups daily ) during the past year weight has: remained stable Dental Care, Regularly: Yes Physical Activity Frequency: Daily Seatbelt Use: always Sunscreen Use: No Assistive Devices: Cane Review of Systems Constitutional: no fever, no fatigue and no weakness Eyes: no diplopia, no eye pain and no worsening vision Ear, Nose, Mouth, Throat: no ear pain, no tinnitus, no hearing loss, no dizziness, no snoring, no hoarseness and no dysphagia Respiratory: no cough and no dyspnea Cardiovascular: no chest pain, no palpitations and no lightheadedness Gastrointestinal: no abdominal pain, no nausea and no vomiting Musculoskeletal: no back pain, no neck pain, no radicular pain, no joint pain and no myalgia Integumentary: no rash and no lesions Neurologic: + localized weakness and + abnormal move ments; no gait abnormality, no generalized weakness, no tingling, no numbness, no tremor(s), no headache(s), no abnormal speech, no confusion and no memory loss Psychiatric: no depression, no irritability, no anxiety, no difficulty concentrating, no confusion and no hallucinations Endocrine: no fatigue and no flushing Hematologic / Lymphatic: no easy bleeding and no easy bruising Allergy / Immunological: no urticaria and no problem reported Exam (Neuro) Physical Exam: The patient is right-handed. The patient is awake, alert, and attentive. Speech is normal without any aphasia or dysarthria. Mentation and thought processes are intact, with full orientation and normal fund of knowledge. Mood and affect are normal and appropriate. Appearance and grooming are normal. Short and long-term memory are intact. Pupils are 4 mm bilaterally and reactive to light. Extraocular eye muscles are intact without nystagmus. Patient seem to have a left homonymous hemianopsia by exam (finger confrontation). There are no deficits to sensation in the face in all 3 distributions of the fifth cranial nerve bilaterally. Corneal reflexes are positive bilaterally. Facial strength and symmetry was normal bilaterally. Hearing seems intact grossly to voice and finger rub bilaterally. Palate moves well without asymmetry. There is normal sternocleidomastoid and trapezius strength bilaterally. Tongue is midline with good strength bilaterally. Neck has a full range of motion without discomfort. There are no cervical bruits bilaterally. There are no cranial or ocular bruits. Heart is without murmur. There is a regular rhythm and rate. Cervical, thoracic, and lumbar spine are nontender to palpation. Gait was not tested but stance sitting in the chair was unremarkable With outstretched arms there is a mild drift versus clumsiness of the left upper extremity. He even had a little bit of athetotic movements and certain posteriors and activities. His left hand was definitely clumsy compared to the right and mildly weak. Proximally, he was 5/5 in both arms and the legs both proximally and distally. The limbs have good tone without rigidity or spasticity. There is no atrophy noted in the muscles. Muscle bulk is normal, there is no tenderness to palpation, no myotonia to percussion, and no fasciculations seen. Sensory examination is intact to touch and pin throughout all 4 limbs diffusely. Reflexes are 1/4 in the biceps, triceps, brachioradialis, quadriceps, and Achilles tendons bilaterally. Toes are downgoing with plantar stimulation bilaterally. Peripheral pulses are present and of normal quality distally in all 4 limbs. There is no peripheral edema noted in the limbs. Results & Data Vital Signs (Past 12 Hours) Vital Signs Temp Pulse Resp BP Pulse Ox O2 Del Method O2 Del Method 04/07/23 08:00 Room Air 04/07/23 07:31 36.5 C 65 18 137/69 96 Room Air 04/07/23 02:29 36.5 C 71 18 148/75 H 95 Room Air PG Care Time/CCT Total # of Minutes Spent Total Time Spent with Patient: Total time spent is greater than 50% in coordination of care (as documented) at patient's floor/unit and/or counseling patient: Coding Level of Care Code 50010 INT INP/OBS CARE 3/75MIN Diagnoses New onset seizure R56.9 Glioblastoma C71.9 Time Spent (min) 75
--- NOTE | 2023-04-07 12:40 | Discharge Summary ---
Date of Service April 07, 2023 Admission HPI Per Admitting Provider Jose is a 77-year-old male with a past medical history of seizure, BPH, carotid stenosis, MT, glioblastoma s/p resection 01/2022 with 6 weeks of radiation and low-dose temozolomide 04/2022 and post chemoradiation 5 cycles of temozolomide completed 10/2022. Interval progression was noticed November 2022 and was reviewed at multidisciplinary tumor board, underwent resection 12/15/2022 with pathology consistent with recurrent glioblastoma. He was pending follow-up to start single agent bevacizumab this month. Per ER Sign Out: He presents to the ER with left hand numbness, tingling, and weakness which began abruptly approximately 3 to 4 hours before ER presentation. He had associated difficulty with speech and was seen emergently as a stroke alert. Patient was noted to have an ER visit a week ago for seizure and was placed on Keppra. He had a very labile mood on the Keppra and this was discontinued as an outpatient, has missed 2 doses. ER evaluation showed Note from 03/28/2023 was reviewed. Patient was seen for 10-minute tonic-clonic seizure with postictal period at that time. CT of the head was with small area bleed versus postsurgical change which was redemonstrated on CT today. This was discussed with neurosurgery at [place] at that time and was compared to their imaging and was felt to be stable and likely postoperative change at that time. Patient was started on Keppra and was comfortable and desired discharged home, patient was discharged home with Keppra prescription at that time - Placed on Keppra, pt discontinued due to angry/labile mood swings. 36 hours ago discontinued keppra. Move improved, but had uncontrolalble L arm shaking. Did have some speech changes while in the waiting room. - Brain mass related.- [facility] [place]. Likely seizure due to edema/swelling from known glioblastoma. Dr. Jules [facility] Neurosurg recommended Vimpat treatment and Keppra wean. Symptoms all resolved. No LOC. Vimpat 100mg BID, wean keppra. Per Pt/Family: Pt back to normal at time of reassessment/admitting assessment. L hand poor coordination at dinner last night, worse with lunch today. Seems more shakey, coming and going shaking spells/spasms. Currently feels better after getting medicines in ER. Denies numbness/tingling. Each shakin spell would last ~30 minutes, but seemed to last a little longer right before coming into the ER. No urinary or bowel incontinence/retention. BP much better since being in the ER, was >180-200s in the past week. Was on Keppra, last took 2-3 days ago No headache. No vision change. No leg weakness. No loss of conciousness No chest pain, no chest pressure No fevers/chills/sweats Did take his medications this morning. Pt has had history of coronary angioplasty but NO stents. Medical History: Reviewed Medications: Reviewed Surgical History: Reviewed Family history: Reviewed Allergies: Reviewed Social History: Reviewed. Former ETOH/tobacco in remission. Code Status: Full Admission Exam Per Admitting Provider General: A&Ox3. NAD. Cooperative. Pleasant HEENT: Pupils equal and reactive to light, EOM without nystagmus, no visual field cuts, hearing grossly intact. Speech is fluent Pulm: CTAB A&P. -wheezes, -rales, -rhonchi. Symmetrical chest rise. No increased work of breathing. No respiratory distress. Cardiac: RRR, -mrg. Radial pulses intact and symmetrical. Abdominal: Nontender, nondistended, soft. BS present. Extremities: [place] strength, elbow flexion, hip flexion, ankle dorsi/plantarflexion 5/5 without deficit at time of bedside assessment. S ensation intact to soft touch in hands and feet Principal Diagnosis Glioblastoma s/p resection with focal seizure-like activity Discharge Exam General:Alert and oriented, no acute distress, pleasant HEENT: Normocephalic, moist oral mucosa, Resp:No increased work of breathing, lungs clear to auscultation Skin: Warm, pink, dry, Psych: Mood-affect congruence. Discharge Data Allergies Allergy/AdvReac Type Severity Reaction Status Date / Time No Known Allergies Allergy Unknown Verified 04/05/23 18:26 Consultations 04/05/23 17:14 ED Decision to Admit Stat 04/05/23 18:34 Consult Oncology Routine 04/06/23 13:49 Consult Neurology Routine Ordered Studies 04/05/23 13:08 CT angio head w con Stat CT angio neck with con Stat CT head/brain wo con Stat 04/06/23 09:00 MRI Brain [MR brain wo/w con] Routine Hospital Course (1) Glioblastoma: (2) Hypertension: (3) BPH (benign prostatic hyperplasia): (4) CAD (coronary artery disease): Bay Garcia is a 77-year-old male with a past medical history of seizure, BPH, carotid stenosis, MT, glioblastoma s/p resection 01/2022 with 6 weeks of radiation and low-dose temozolomide 04/2022 and post chemoradiation 5 cycles of temozolomide completed 10/2022. Interval progression was noticed November 2022 and was reviewed at multidisciplinary tumor board, underwent resection 12/15/2022 with pathology consistent with recurrent glioblastoma. He was pending follow-up to start single agent bevacizumab this month. Appreciate neuro recommendations: keep 81 mg aspirin daily, continue lacosamide 100 mg p.o. twice daily, avoid levetiracetam, if continued movement issues can add 500mg Depakote ER daily. F/u neurology 3-4 weeks. F/u with [facility] neurosurgery and oncology. Pt has been stable and wishing to go home today. Stable for discharge. Will continue vimpat 100 mg BID. 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 Trimble [facility] Neuro[facility]. Likely seizure activity related to edema/swelling from known glioblastoma. Not a ongoing surgical candidate and no acute surgical intervention is recommended. - Starting chemo May [address] Shore at the [facility], also following with Neurologyw/ Dr. León. - brain MRI shows postsurgical change from right temporal lobe resection, edema around the resection cavity is similar to 03/06/2023, irregular enhancement around the resection cavity is similar in distribution to the 03/06/2023 examination, patchy foci of FLAIR signal abnormality within the left occipital lobe without corresponding enhancement, mixed signal intensity extra-axial collection along the right convexity is unchanged from recent CT scans= acute to subacute versus acute on chronic subdural hemorrhage - if patient has a recurrent seizure or seizure-like activity give 1 g of Depakote and avoid additional benzos if possible. No additional Keppra. - consulted oncology and neurology - continue Vimpat 100 mg twice daily - continue dexamethasone taper CAD (coronary artery disease) Hypertension, History of MT CTA: 70% stenosis at the right ICA, high-grade stenosis of the V4 left vertebral artery, and less than 50% stenosis of the proximal left ICA - Continue lisinopril Continue metoprolol Aspirin 81mg continued. No history of stents. Continue statin No chest pain, chest pressure, shortness of breath preceding presentation and high sensitive troponin is not elevated BPH (benign prostatic hyperplasia) Continue dutasteride Total Time Total Time Spent Total Time Spent (In Minutes): <30 Discharge Plan Discharge Items Patient Disposition: Home - Self-Care Reason For Visit: SEIZURE 2/2 GLIOBLASTOMA Discharge Diagnosis: Glioblastoma s/p resection with focal seizure-like activity Condition on Discharge: Fair Activity: Per Instructions section Non-emergency contact: Primary Care Provider, Neurologist and Oncologist Call non-emergency contact if: you have any medication questions and your symptoms worsen Follow-up/Referrals: Leonardo Gates CRNP [Primary Care Provider] - 04/10/23 12:20 pm Johnny Shore MD [Physician] - 05/05/23 ([place]- 11:30 Dr. Shore- 1:30) Allan León MD [Physician] - 04/13/23 2:00 pm Diet: Regular Addtl Attending Provider Instructions: You were admitted for a left sided numbness/shaking secondary to known recurrent glioblastoma (brain tumor). Your symptoms have improved and we feel it is safe for you to go home at this time. As the Keppra you were taking for seizure prevention caused mood instability, we have sent a different medication called lacosamide (or Vimpat) for seizure prevention instead. Please take this medication as prescribed below. Also, please follow-up with your doctors in [place] once you are discharged from the hospital. We also advise you follow-up with your primary care provider within 1 week of discharge from the hospital to update them on your medication change and change in clinical status. Medications: Your medication list has been reviewed and reconciled upon discharge to ensure accuracy and continuity of care. An updated list of all your medications is incl uded with your hospital discharge paperwork. Please review this list closely, and make note of any changes. We sent a new medication called Vimpat (lacosamide) to your pharmacy. Take Vimpat (lacosamide) 100mg twice a day. Do not stop this medication without talking to a doctor first. This medication is to prevent seizures. Take your medications as instructed; do not skip a dose of your medicines. Make sure all of your doctors know every medicine you are taking (including [id number] medicines, vitamins, and supplements). Call your primary care provider before taking any new medicines (including over- the-counter medicines, vitamins, and supplements), because some of these may interact with your current medications, or may make your symptoms worse. Tell your primary care provider if you cannot afford your medications. Activity: You can do normal everyday activities as your body allows. Take rest breaks if you feel tired. Do not overexert. Stop activity if you have pain, shortness of breath or feel dizzy. Follow-up appointments: Make an appointment with your primary care physician within one week of discharge. A copy of this summary will be sent to them. Every time you see your primary care physician, or any other doctor, bring your medication list, and a list of questions. CONTACT YOUR PRIMARY CARE PROVIDER if you experience any of the following: Shortness of breath or difficulty breathing Swelling of your feet, ankles, hands or abdomen Feeling tired with normal activity or experiencing dizziness or fainting Difficulty following your treatment plan, or difficulty taking medications CALL 911 OR GO TO THE EMERGENCY DEPARTMENT if you experience any of the following: Severe abdominal pain or nausea/vomiting Severe chest pain, or chest pain that radiates (moves) to your jaw or arm Sudden, severe shortness of breath or difficulty breathing Sudden weakness in one limb, slurred speech, or seizure activity Thank you for allowing us to participate in your care. Pending Studies at Discharge: No Stand-Alone Forms: My [facility] Medications and DC Order Prescriptions: New lacosamide [Vimpat] 100 mg tablet 100 mg PO BID 30 Days Qty: 60 3RF lacosamide [Vimpat] 100 mg tablet 100 mg PO BID Qty: 60 0RF Continued multivitamin [Multiple Vitamins] Tablet 2 tab PO QAM Patient Comments: gummies dutasteride [Avodart] 0.5 mg capsule 0.5 mg PO QAM Qty: 90 1RF metoprolol succinate 50 mg tablet extended release 24 hr 50 mg PO QAM Qty: 90 1RF lisinopril 10 mg tablet 10 mg PO QAM Qty: 90 3RF ondansetron 8 mg tablet,disintegrating 8 mg PO Q12H PRN (Reason: TAKE PRIOR TO CHEMO MED) acetaminophen [Tylenol Extra Strength] 500 mg Tablet 500 - 1,000 mg PO UD PRN (Reason: Pain) Citrucel Sugar Free Powder 2 g PO QAM Beano 450 unit Tablet,Disintegrating 450 unit PO BID PRN (Reason: Gi Upset) aspirin 81 mg Tablet,Delayed Release (Dr/Ec) 81 mg PO QAM Qty: 30 0RF famotidine 20 mg Tablet 20 mg PO QAM cholecalciferol (vitamin D3) [Vitamin D3] 125 mcg (5,000 unit) Tablet 125 mcg PO QAM atorvastatin 40 mg tablet 40 mg PO HS No Action nitroglycerin 0.4 mg tablet, sublingual 0.4 mg sublingual Q5M PRN (Reason: Chest Pain) Qty: 25 3RF Rx Instructions: do not exceed 3 doses per episode Discharge Orders: Discharge Order (Routine); Ordered 04/07/23 Ordered By: Vee Marroquin/Other Patient Handouts: Lacosamide Oral Tablet Admission Data Admit Date/Time: 04/05/23 18:14 Attending Provider: Kirby Gallagher Admit Provider: Dusty López Primary Care Provider: Leonardo Gates Other Providers: Dusty López; Johnny Shore; Gerry Holbrook Other Interventions: Discharge Summary Assessment (RN) Last Done: 04/07/23 13:48 Supervising Physician Co-Signing Physician Notes I personally examined the patient and verified all cook points of history and exam, discussed case, and agree with decision making with Dr Young feeling OK. no new complaints. mostly worried about getting home before snowstorm (~48hrs) vitals noted nad heent nc at mmm breathing unlabored no accessory muscles good effort skin no rashes no pallor or icterus GBM - appreciate oncology input, continue vimpat per neuro input. home today, outpt f/u otherwise as above Resident Activity Tracking Resident Involvement: Resident Care Provided Care Provided: Adult Hospital Medicine
--- NOTE | 2023-04-07 19:54 | Billing Data ---
Date of Service April 07, 2023 Coding Level of Care Code 79115 IN/OBS DISCH 30 MIN/LESS
[2023-04-14] MEDS ORDERED: ASPIRIN 81 MG ECTAB PO SCH (21:00)
== END 2023-04-07 15:13 | disposition home or self-care (01) | DRG 54 ==
LOC: ED 12:47 → EDINP 18:14 → SUATTDRO 18:14 → 2E 04-06 15:17

== ENCOUNTER 2023-04-25 13:18 | Observation (INO) ==
[2023-04-25] MEDS ORDERED: SODIUM CHLORIDE 0.9% 500 ML IV SCH (14:00)
--- NOTE | 2023-04-25 14:21 | Emergency Department Note ---
Impression & Plan Seizure, Glioblastoma, Acute left-sided weakness ED Provider Note NAME: NELSON LOU Jr AGE: 77 SEX: M : 1945 ARRIVES VIA: Ambulance INFORMANT: Patient, the patient's significant other ED PROVIDER(S): Khadar Escobedo DO CHIEF COMPLAINT: Seizure HPI: The patient is a 77-year-old male who has a history of glioblastoma who presented to the emergency department for an evaluation of fever. The patient was on 2 seizure medications that were stopped. He now takes Vimpat. He has been compliant with his outpatient medications. He was at the [facility] when he had a seizure and was sent to the emergency department as a code purple. He denies having any headache nausea or vomiting. He does have left-sided weakness. He denies having any recent changes to his medications. ROS: See above HPI for pertinent positives & negatives. A total of 10 systems reviewed and were otherwise negative. PAST MEDICAL HISTORY: See Below PAST SURGICAL HISTORY: See Below FAMILY HISTORY: See Below SOCIAL HISTORY: See Below HOME MEDICATIONS: See Below ALLERGIES: See Below VITALS: See Below PHYSICAL EXAMINATION: GENERAL: Patient is awake alert in no acute distress patient is resting comfortably and showing no signs of anxiety EYES: The conjunctivae are clear. The pupils are round and reactive. EARS, NOSE, MOUTH AND THROAT: The nose is without any evidence of any deformity. NECK: The neck is nontender and supple. RESPIRATORY: Normal respiratory effort is noted there is no evidence of wheezing rhonchi or rales CARDIOVASCULAR: Regular rate and rhythm noted there no murmurs rubs or gallops normal S1 normal S2. GASTROINTESTINAL: The abdomen is soft. Abdomen is nontender. MUSCULOSKELETAL/EXTREMITIES: There is no evidence of gross deformity full range of motion is noted in the hips and shoulders. SKIN: There is no obvious evidence of any rash. There are no petechiae, pallor or cyanosis noted. NEUROLOGIC: Patient is awake alert and oriented x3. Speech was clear. 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 The patient has weakness in the left lower extremity compared to the right. MEDICAL DECISION MAKING: The patient is a 77-year-old male who was at the [facility] receiving treatment when he had an acute seizure. The patient does have a history of a glioblastoma however this has been under control and has had no recent seizures. His seizure medication was recently changed. The patient was found to have left-sided weakness after the seizure. He has a right-sided tumor however he does not have left-sided weakness to this degree at baseline. I discussed the patient's laboratory and radiographic studies with him. I discussed his condition with the on-call [facility] hospitalist. They have agreed to evaluate the patient in the emergency department for further management and disposition. Triage Nursing notes reviewed. Prior medical records reviewed Vital Signs: reviewed and remarkable for elevated blood pressure. Differential diagnosis: Epilepsy, infection, hypoglycemia, electrolyte abnormalities, cardiac sources, intracerebral event, trauma, toxicologic, neurologic, syncope, as well as other pathologies. ER treatment provided: See below Diagnostics interpreted by me: ECG: EKG was obtained in the emergency department. My interpretation is normal sinus rhythm at 76 bpm. There is no ectopy. There is no acute ST segment abnormalities noted. This was compared to a tracing from April 05, 2023. No significant changes were noted. Prehospital EKG was evaluated. My interpretation is normal sinus rhythm at 87 bpm. There is no ectopy. There is no acute ST segment abnormalities noted. This compares similar to the tracing obtained in the emergency department Cardiac Monitoring: An order was placed for continuous cardiac monitoring. The monitor shows a rate of 91 bpm with sinus rhythm. Laboratory studies: As stated above and show below. Imaging studies: See below. Radiographic imaging was reviewed by myself Consultation(s): I discussed this case with Dr. Lira who is on-call for the [facility]. Past Med/Surg History Medical History Anemia CAD (coronary artery disease) inferior wall VT 1989 s/p PTCA of the CX artery Chronic cough Diverticulosis Glioblastoma (01/04/22) Dx 01/2022 last chemo 11/2022, surgery 12/2022 C Nasal congestion Hypertension Prostate nodule Post-void dribbling Atherosclerotic heart disease of [place] coronary artery without angina pectoris History of COVID-19 03/2020 BPH (benign prostatic hyperplasia) hx Hyperlipidemia Carotid stenosis, left s/p Left CEA with Bovine Patch Angioplasty (2019) Myocardial Infarction 1989 GERD (gastroesophageal reflux disease) Surgical History Port-A-Cath in place (03/02/23) Insertion of Right Subclavian Access Port with Fluoroscopy(Right) - Jewel Clarke MD, FACS History of anesthesia complications "During prior anesthetic on 01/22 patient was noted to have labile pressures during induction with propofol, first with extreme hypertension (systolic up to 196) and then hypotension requiring NE gtt" per 12/2022 [facility] anesthesia records Hx of transurethral resection of prostate 2017 History of craniotomy (12/15/22) 1. Redo Right Temporal craniotomy for resection of brain lesion. 2. Use of Stealth neuronavigation. Dr. Macario Jordan at [facility] S/P bronchoscopy 02/2022 History of craniotomy 01/04/22 History of cataract surgery R/L S/P carotid endarterectomy Left CEA with Bovine Patch Angioplasty (2019) History of cystoscopy History of colonoscopy History of tooth extraction Hx of angioplasty 1989 [facility] Family History Father , 86yo Lung cancer Myocardial infarction Hypertension Mother , 92yo Pacemaker Hypertension Sister H/O carotid endarterectomy Stroke following surgery; Hypertension Dyslipidemia Sister Dyslipidemia Hypertension Melanoma Sister Hypertension Denies family history of Ovarian cancer Prostate cancer Breast cancer Colorectal cancer Social History Smoking Status: Former smoker Tobacco Type: Cigarettes Age Started Using Tobacco: 13; Age Quit Using Tobacco: 38; packs per day: 2; Cigarettes Per Day: [id number]; Second Hand Exposure: Yes (hx as child); Do You Dip or Chew Tobacco: No; Hx Alcohol Use: No Hx Substance Use: No Preferred Language: Latvian Communication Ability: Effective Visual Impairment: No Limitations Hearing Ability: Use of Hearing Aid Butter Melter Required: No Beliefs That Will Affect Care: None marital status: marital status details: Amrita Current Living Situation: Spouse current occupational status: retired How many Children do You have: 0 Feels Safe at Home: Yes Childhood Exposure to Second-Hand Smoke: Yes (father ) Diet: regular Diet Comment: attempts a healthy diet caffeine: Yes (3 cups daily ) during the past year weight has: remained stable Dental Care, Regularly: Yes Physical Activity Frequency: Daily Seatbelt Use: always Sunscreen Use: No Assistive Devices: Cane Allergies Allergies Allergy/AdvReac Type Severity Reaction Status Date / Time No Known Allergies Allergy Unknown Verified 04/10/23 12:28 Home Meds Home Medications Medication Instructions Recorded Confirmed multivitamin (Multiple Vitamins 2 tab PO QAM 02/02/22 04/25/23 tablet) acetaminophen 500 mg tablet 500 - 1,000 mg PO UD PRN Pain 02/11/22 04/25/23 (Tylenol Extra Strength) [id number] 450 unit 450 unit PO BID PRN Gi Upset 02/11/22 04/25/23 disintegrating tablet (Beano) methylcellulose (laxative) 2 g PO QAM 02/11/22 04/25/23 (Citrucel Sugar Free oral powder) ondansetron 8 mg disintegrating 8 mg PO Q12H PRN TAKE PRIOR TO 02/11/22 04/25/23 tablet CHEMO MED atorvastatin 40 mg tablet 40 mg PO HS 02/22/23 04/25/23 cholecalciferol (vitamin D3) 125 125 mcg PO QAM 02/22/23 04/25/23 mcg (5,000 unit) tablet (Vitamin D3) famotidine 20 mg tablet 20 mg PO QAM 02/22/23 04/25/23 Previous Rx's Medication Instructions Recorded aspirin 81 mg tablet,delayed 81 mg PO QAM #30 tabs 02/17/22 release dutasteride 0.5 mg capsule 0.5 mg PO QAM #90 caps 02/06/23 (Avodart) metoprolol succinate 50 mg 50 mg PO QAM #90 tabs 02/10/23 tablet,extended release 24 hr lisinopril 10 mg tablet 10 mg PO QAM #90 tabs 02/27/23 nitroglycerin 0.4 mg sublingual 0.4 mg sublingual Q5M PRN Chest 04/07/23 tablet Pain #25 tabs lacosamide 100 mg tablet (Vimpat) 100 mg PO BID #60 tabs 04/13/23 Results & Data (ED) Vital Signs Vital Signs - 24 hr 04/25/23 13:39 04/25/23 13:45 04/25/23 13:45 Temperature 37 C Temperature Source Oral Pulse Rate 81 81 Pulse Rate [Apical] Respiratory Rate 24 Respiratory Effort / Characteristics Non-Labored Spontaneous Respiratory Depth Normal Blood Pressure 133/87 Blood Pressure [Right Arm] Blood Pressure Mean 102 Blood Pressure Mean [Right Arm] Blood Pressure Position [Right Arm] Pulse Oximetry 95 95 Oxygen Delivery Method Room Air Room Air Sepsis Recent Fever Within 48 Hours No Sepsis New/Unexplained Change in Mental Status N/A Sepsis Action Taken by Nursing No Action Required 04/25/23 16:25 04/25/23 17:37 04/25/23 18:37 Temperature Temperature Source Pulse Rate 78 Pulse Rate [Apical] 91 H 75 Respiratory Rate 16 18 Respiratory Effort / Characteristics Non-Labored Spontaneous Respiratory Depth Blood Pressure Blood Pressure [Right Arm] 159/90 H 158/85 H Blood Pressure Mean Blood Pressure Mean [Right Arm] 113 109 Blood Pressure Position [Right Arm] Sitting Sitting Pulse Oximetry 91 93 Oxygen Delivery Method Room Air Sepsis Recent Fever Within 48 Hours Sepsis New/Unexplained Change in Mental Status Sepsis Action Taken by Nursing 04/25/23 19:21 Temperature Temperature Source Pulse Rate Pulse Rate [Apical] 91 H Respiratory Rate 24 Respiratory Effort / Characteristics Non-Labored Spontaneous Respiratory Depth Normal Blood Pressure Blood Pressure [Right Arm] 142/74 H Blood Pressure Mean Blood Pressure Mean [Right Arm] 96 Blood Pressure Position [Right Arm] Pulse Oximetry 97 Oxygen Delivery Method Room Air Sepsis Recent Fever Within 48 Hours Sepsis New/Unexplained Change in Mental Status Sepsis Action Taken by Usp Medications Current Medication List: was personally reviewed by me Laboratory Data Attestation: I reviewed the patient's lab results. 04/25/23 15:16 04/25/23 15:16 Lab Results 04/25/23 04/25/23 04/25/23 Range/Units 13:37 15:16 Unknown WBC 11.19 H (4.8-10.8) K/ul RBC 3.33 L (4.70-6.10) M/uL Hgb 10.8 L (14.0-18.0) g/dl Hct 32.9 L (42.0-52.0) % MCV 98.8 (80.0-100.0) fL MCH 32.4 (25.0-34.0) pg MCHC 32.8 (32.0-36.0) g/dL RDW Std Deviation 62.1 H (36.4-46.3) fL RDW Coeff of Nick 17.6 H (11.5-14.5) % Plt Count 298 (130-400) K/uL MPV 9.0 L (9.4-12.4) fL Immature Gran % (Auto) 1.8 % Neut % (Auto) 66.8 % Lymph % (Auto) 11.4 % [place] % (Auto) 15.3 % Eos % (Auto) 4.0 % Baso % (Auto) 0.7 % Neut # (Auto) 7.47 H (1.40-6.50) K/uL Lymph # (Auto) 1.28 (1.20-3.40) K/uL [place] # (Auto) 1.71 H (0.11-0.59) K/uL Eos # (Auto) 0.45 (0.00-0.50) K/uL Baso # (Auto) 0.08 (0.00-0.20) K/uL Immature Gran # (Auto) 0.20 (0.01-0.20) K/uL Sodium 133 L (136-145) mmol/L Potassium 3.6 (3.5-5.1) mmol/L Chloride 102 (98-107) mmol/L Carbon Dioxide 25 (21-32) mmol/L Anion Gap 6 (3-11) BUN 8 (6-23) mg/dl Creatinine 0.83 (0.6-1.4) mg/dl Est Cr Clr Drug Dosing 74.7 ml/min Est GFR ( Amer) 97.7 ml/min Est GFR (Non-Af Amer) 84.3 ml/min BUN/Creatinine Ratio 9.6 L (10-20) Glucose 87 (70-99(Fasting)) mg/dl POC Glucose 109 H (70-99) mg/dl Calcium 8.6 (8.6-10.3) mg/dl Phosphorus 3.0 (2.5-4.9) mg/dl Magnesium 1.8 (1.7-2.4) mg/dl Total Bilirubin 0.9 (0.2-1.0) mg/dl AST 16 (13-39) U/L ALT 23 (7-52) U/L Alkaline Phosphatase 84 (34-104) U/L Total Creatine Kinase 23 L (30-223) U/L Troponin I High Sens 8.8 (0-20) pg/ml Total Protein 6.2 (6.0-8.3) gm/dl Albumin 3.3 L (3.4-5.0) gm/dl Globulin 2.9 (2.5-4.0) gm/dl Albumin/Globulin Ratio 1.1 (0.9-2) Urine Color [place] Urine Appearance Cloudy A (Clear) Urine pH 7.5 (4.5-7.5) Ur Specific [place] 1.007 (1.000-1.030) Urine Protein Negative (Negative) Urine Glucose (UA) Negative (Negative) Urine Ketones Negative (Negative) Urine Blood 3+ H (Negative) Urine Nitrite Negative (Negative) Urine Bilirubin Negative (Negative) Urine Urobilinogen Negative (Negative) Ur Leukocyte Esterase 3+ H (Negative) Urine WBC (Auto) >30 H (0-5) /hpf Urine RBC (Auto) >30 H (0-4) /hpf U Hyaline Cast (Auto) 0 (0-5) /lpf U Epithel Cells (Auto) 5-10 H (0-5) /lpf Urine Bacteria (Auto) Negative (Negative) Urine Yeast Not Reportable Administered Medications Ceftriaxone Sodium 2,000 mg/ (Dextrose) 50 mls @ 100 mls/hr IV Q24H [facility]; Protocol Stop: 05/05/23 17:59 Last Admin: 04/25/23 18:31 Dose: 100 mls/hr Documented By: AIMEE Discontinued Medications Sodium Chloride (Nss) 500 mls @ 999 mls/hr IV .Q31M DEMAR Stop: 04/25/23 14:30 Last Infusion: 04/25/23 15:17 Dose: Infused Documented By: Admin: 04/25/23 14:36 Dose: 999 mls/hr Documented By: NKECHI Lacosamide 100 mg/ Sodium (Chloride) 60 mls @ 120 mls/hr IV ONE STA Stop: 04/25/23 17:26 Last Infusion: 04/25/23 18:34 Dose: Infused Documented By: Admin: 04/25/23 17:27 Dose: 120 mls/hr Documented By: AIMEE Imaging Data Attestation: I personally reviewed and interpreted this imaging study as follows: My Impression: 1 view chest x-ray was obtained in the emergency department. My interpretation is no free air or definite infiltrate, final report below. CT the brain was obtained in the emergency department. The previously noted vasogenic edema was noted on the right side. Final report below. Radiologist's Impression: Chest X-Ray 04/25/23 13:59 XR chest 1V portable CLINICAL HISTORY: seizure TECHNIQUE: Single frontal radiograph of the chest was obtained. Comparison: Comparison is made to chest radiograph 04/05/2023 FINDINGS: No lines and tubes are seen. Cardiomegaly is noted. Prominence and cephalization of the vasculature is seen. No evidence of pleural effusion or pneumothorax. IMPRESSION: Cardiomegaly and mild pulmonary edema. Overall extent appears slightly greater than prior exam. ACT 112: Negative or not required by law. Electronically signed by: Ramiro Goodman M.D. 04/25/2023 2:[address] 04/25/23 13:59 CT head/brain wo con CLINICAL HISTORY: 77 years-old Male with sz. Acute seizure-like activity TECHNIQUE: Multiple axial CT images of the head were obtained without contrast. A dose lowering technique was utilized adhering to the principles of ALARA. CT DOSE: 1250.21 mGy.cm COMPARISON: Brain MRI April 06, 2023, head CT 04/05/2023 FINDINGS: Right temporal lobe resection cavity with encephalomalacia and surrounding vasogenic edema redemonstrated. There is no acute intracranial hemorrhage, midline shift or acute territorial infarct identified. Extra-axial collection adjacent to the right cerebral convexity demonstrates decreased attenuation compared to the prior study and is overall similar in size measuring up to 8 mm. Right calvarial craniotomy changes. Mastoid air cells are clear. Leftward bowing and spurring of the nasal septum. Unremarkable soft tissues. Prior bilateral lens repair. IMPRESSION: 1. No acute intracranial abnormality identified. 2. Right temporal lobe resection cavity with surrounding vasogenic edema redemonstrated. No midline shift. 3. Decreased attenuation of the subcentimeter extra-axial collection suggestive of a subacute subdural hematoma layering along the right cerebral convexity. ACT 112: Negative or not required by law. The above report was generated using voice recognition software. It may contain grammatical, syntax or spelling errors. Electronically signed by: Dev Orozco M.D. 04/25/2023 2:35 PM Discharge Plan Visit Data Chief Complaint: Seizure ED Provider: Khadar Escobedo Discharge Problem: Seizure, Glioblastoma, Acute left-sided weakness Patient Disposition: Being Evaluated by Hospitalist Forms Stand Alone Forms: [facility], [facility] Prescriptions Prescriptions: No Action multivitamin [Multiple Vitamins] Tablet 2 tab PO QAM Patient Comments: anaya dutasteride [Avodart] 0.5 mg capsule 0.5 mg PO QAM Qty: 90 1RF metoprolol succinate 50 mg tablet extended release 24 hr 50 mg PO QAM Qty: 90 1RF lisinopril 10 mg tablet 10 mg PO QAM Qty: 90 3RF nitroglycerin 0.4 mg tablet, sublingual 0.4 mg sublingual Q5M PRN (Reason: Chest Pain) Qty: 25 3RF Rx Instructions: do not exceed 3 doses per episode ondansetron 8 mg tablet,disintegrating 8 mg PO Q12H PRN (Reason: TAKE PRIOR TO CHEMO MED) lacosamide [Vimpat] 100 mg tablet 100 mg PO BID Qty: 60 3RF acetaminophen [Tylenol Extra Strength] 500 mg Tablet 500 - 1,000 mg PO UD PRN (Reason: Pain) Citrucel Sugar Free Powder 2 g PO QAM Beano 450 unit Tablet,Disintegrating 450 unit PO BID PRN (Reason: Gi Upset) aspirin 81 mg Tablet,Delayed Release (Dr/Ec) 81 mg PO QAM Qty: 30 0RF famotidine 20 mg Tablet 20 mg PO QAM cholecalciferol (vitamin D3) [Vitamin D3] 125 mcg (5,000 unit) Tablet 125 mcg PO QAM atorvastatin 40 mg tablet 40 mg PO HS Referrals Referrals: Leonardo Gates CRNP [Primary Care Provider] -
--- NOTE | 2023-04-25 14:37 | CT Scan Report ---
CT head/brain wo con CLINICAL HISTORY: 77 years-old Male with sz. Acute seizure-like activity TECHNIQUE: Multiple axial CT images of the head were obtained without contrast. A dose lowering tech nique was utilized adhering to the principles of ALARA. CT DOSE: 1250.21 mGy.cm COMPARISON: Brain MRI April 06, 2023, head CT 04/05/2023 FINDINGS: Right temporal lobe resection cavity with encephalomalacia and surrounding vasogenic edema redemonstrated. There is no acute intracranial hemorrhage, midline shift or acute territorial infarct identified. Extra-axial collection adjacent to the right cerebral convexity demonstrates decreased a ttenuation compared to the prior study and is overall similar in size measuring up to 8 mm. Right roni varial craniotomy changes. Mastoid air cells are clear. Leftward bowing and spurring of the nasal sep noreen. Unremarkable soft tissues. Prior bilateral lens repair. IMPRESSION: 1. No acute intracranial abnormality identified. 2. Right temporal lobe resection cavity with surrounding vasogenic edema redemonstrated. No midline s hift. 3. Decreased attenuation of the subcentimeter extra-axial collection suggestive of a subacute subdura l hematoma layering along the right cerebral convexity. ACT 112: Negative or not required by law. The above report was generated using voice recognition software. It may contain grammatical, syntax o r spelling errors. Electronically signed by: Dev Orozco M.D. 04/25/2023 2:35 PM
[2023-04-25 15:28] LABS: Basophils # (auto) 0.08 K/uL (0.00-0.20); Basophils % (auto) 0.7 %; Eosinophils # (auto) 0.45 K/uL (0.00-0.50); Hematocrit (blood only) 32.9 % (42.0-52.0); Hemoglobin 10.8 g/dl (14.0-18.0); Immature Granulocytes % (auto) 1.8 %; Lymphocytes # (auto) 1.28 K/uL (1.20-3.40); Lymphocytes % (auto) 11.4 %; Mean Corpuscular Hemoglobin 32.4 pg (25.0-34.0); Mean Corpuscular Hgb Conc 32.8 g/dL (32.0-36.0); Mean Corpuscular Volume 98.8 fL (80.0-100.0); Monocytes # (auto) 1.71 K/uL (0.11-0.59); Monocytes % (auto) 15.3 %; Neutrophils # (auto) 7.47 K/uL (1.40-6.50); Neutrophils % (auto) 66.8 %; Platelet Count 298 K/uL (130-400); RDW Coefficient of Variation 17.6 % (11.5-14.5); RDW Standard Deviation 62.1 fL (36.4-46.3); Red Blood Count 3.33 M/uL (4.70-6.10); White Blood Count 11.19 K/ul (4.8-10.8)
[2023-04-25 16:00] LABS: Albumin Level 3.3 gm/dl (3.4-5.0); Bilirubin,Total 0.9 mg/dl (0.2-1.0); Calcium 8.6 mg/dl (8.6-10.3); Magnesium 1.8 mg/dl (1.7-2.4); Potassium 3.6 mmol/L (3.5-5.1)
[2023-04-25 16:02] LABS: Troponin I High Sensitivity 8.8 pg/ml (0-20)
[2023-04-25 16:07] LABS: Albumin Globulin Ratio 1.1 (0.9-2); BUN Creatinine Ratio 9.6 (10-20); Creatinine Clr Calc Pharmacy 74.7 ml/min; Est GFR (African American) 97.7 ml/min; Est GFR (Non-African American) 84.3 ml/min; Globulin 2.9 gm/dl (2.5-4.0); Total Protein 6.2 gm/dl (6.0-8.3)
[2023-04-25 16:38] LABS: Appearance Urine Cloudy (Clear); Bacteria Urine Automated Negative (Negative); Bilirubin Urine Negative (Negative); Blood Urine 3+ (Negative); Cast Urine Automated 0 /lpf (0-5); Color Urine Orange; Glucose Urine UA Negative (Negative); Ketones Urine Negative (Negative); Leukocyte Esterase Urine 3+ (Negative); Nitrite Urine Negative (Negative); Protein Urine Negative (Negative); RBC Urine Automated >30 /hpf (0-4); Specific Gravity Urine 1.007 (1.000-1.030); Urobilinogen Urine Negative (Negative); WBC Urine Automated >30 /hpf (0-5); pH Urine 7.5 (4.5-7.5)
--- NOTE | 2023-04-25 16:48 | History & Physical Report ---
Date of Service April 25, 2023 Assessment & Plan (1) Partial seizure: Plan: Partial seizure, history of seizures With prior intolerance of Keppra due to mood instability and alcohol cravings. No recent alcohol use Lacosamide increased to 100 mg twice daily. Initially was reported as patient was on 100 mg daily and was to be increased to 150 twice daily; however with collateral with patient has actually just been taking lacosamide 100 mg daily. Discussed with neurology. Patient has a known seizure disorder and clinical presentation strongly consistent with partial seizure. He is on relatively low levels of lacosamide, recommend giving 100 mg IV and increasing dose. EEG is not recommended. If patient returns to baseline does not require admission for this, however if he does not return to baseline/requires admission then can pursue MRI overnight. Appreciate recommendations. At bedside assessment left-sided strength is robust and intact and no sensory deficits. He does have a slight resting tremor in the left leg however unlike during his initial presentation he is able to quiet this with intention/focus. Left-sided hand dysmetria is present, patient reports this is normal. No evidence of new strength/sensory changes at time of assessment MRI with and without contrast pending Seizure precautions. Ativan 2 mg every 5 minutes up to 3 doses per episode on-call for seizure CThead is with no acute intracranial findings, postsurgical changes are redemonstrated. Patient does have a subcentimeter extra-axial collection suggestive of a subacute acute subdural hematoma which was also noted on 04/05/2023; this appears similar in size and without acute change. May have also been provoked in the setting of UTI. (2) UTI (urinary tract infection): Plan: UTI Several days of dysuria and foul smelling urine with some hematuria. UA is with leukocyte esterase, blood. UC pending. Mild leukocytosis is present Empirically treated with Rocephin, follow UCx for speciation Patient is not septic on admission (3) Glioblastoma: Plan: History of glioblastoma grade 4 with a history of chemoradiation + surgical resection 12/2022 Was receiving a port flush (not active treatment) at [facility] when he developed MRI with and without contrast pending. If otherwise doing well and no recu rrent seizures continue follow-up as outpatient with [facility] (4) CAD (coronary artery disease): Plan: CAD/hypertension Continue metoprolol 50 mg every morning Continue aspirin daily Continue atorvastatin Continue lisinopril No chest pain/angina, normal troponin, no volume overload on admission (5) BPH (benign prostatic hyperplasia): Plan: BPH/LUTS Continue dutasteride Bladder scan as needed Plan DVT prophylaxis: SCDs Disposition: PCU CODE STATUS: Full code Diet: Heart healthy History of Present Illness Primary Care Provider: ELIZABET Pimentel Jose is a 69-year-old male with past medical history of glioblastoma grade 4 with a history of chemoradiation, surgical resection 12/2022, history of seizures with discontinuation of Keppra due to induction of alcohol craving now on lacosamide, BPH, CAD, GERD who was at the [facility] for a port flush (no infusions) when he developed left arm spasms and shaking consistent with partial seizure activity. He was referred to the ER for additional care after receiving 2 mg of Ativan. While in the ER leukocytosis of 11.19, mildly hyponatremic at 133, BSG was 109 and at time of seizure and code purple was 136, high sensitive troponin is negative, and he is satting normally on room air at time of hospital assessment. EKG normal sinus rhythm Patient seen at the bedside for reevaluation and hospital assessment. Mental status is greatly improved, confusion has nearly completely resolved. He is hard of hearing but answers questions appropriately and is oriented to name and place. He continues to have some slight tremoring of his left lower extremity however unlike earlier with his code purple he is able to consciously stop the shaking and feels at his normal baseline. He denies headache, vision change, numbness/tingling, chest pain, chest pressure, shortness of breath. He does endorse dysuria and hematuria for at least several days and a feeling of night sweats. Denies abdominal pain. Clarified with patient's that patient has actually been switched to Vimpat 100 mg daily rather than twice daily as when he was on it twice daily he had an episode of hives and was told that cutting it in half may help him tolerate it better Medical History: Reviewed Medications: Reviewed Surgical History: Reviewed Family history: Reviewed Allergies: Reviewed Social History: Reviewed Code Status: Full code Allergies Allergy/AdvReac Type Severity Reaction Status Date / Time No Known Allergies Allergy Unknown Verified 04/10/23 12:28 Home Medications Medication Instructions Recorded Confirmed Type multivitamin (Multiple Vitamins 2 tab PO QAM 02/02/22 04/25/23 History tablet) acetaminophen 500 mg tablet 500 - 1,000 mg PO UD PRN Pain 02/11/22 04/25/23 History (Tylenol Extra Strength) [id number] 450 unit 450 unit PO BID PRN Gi Upset 02/11/22 04/25/23 History disintegrating tablet (Beano) methylcellulose (laxative) 2 g PO QAM 02/11/22 04/25/23 History (Citrucel Sugar Free oral powder) ondansetron 8 mg disintegrating 8 mg PO Q12H PRN TAKE PRIOR TO 02/11/22 04/25/23 History tablet CHEMO MED aspirin 81 mg tablet,delayed 81 mg PO QAM #30 tabs 02/17/22 04/25/23 Rx release dutasteride 0.5 mg capsule 0.5 mg PO QAM #90 caps 02/06/23 04/25/23 Rx (Avodart) metoprolol succinate 50 mg 50 mg PO QAM #90 tabs 02/10/23 04/25/23 Rx tablet,extended release 24 hr atorvastatin 40 mg tablet 40 mg PO HS 02/22/23 04/25/23 History cholecalciferol (vitamin D3) 125 125 mcg PO QAM 02/22/23 04/25/23 History mcg (5,000 unit) tablet (Vitamin D3) famotidine 20 mg tablet 20 mg PO QAM 02/22/23 04/25/23 History lisinopril 10 mg tablet 10 mg PO QAM #90 tabs 02/27/23 04/25/23 Rx nitroglycerin 0.4 mg sublingual 0.4 mg sublingual Q5M PRN Chest 04/07/23 04/25/23 Rx tablet Pain #25 tabs lacosamide 100 mg tablet (Vimpat) 100 mg PO BID #60 tabs 04/13/23 04/25/23 Rx Past Med/Surg History Medical History Anemia CAD (coronary artery disease) inferior wall MS 1989 s/p PTCA of the CX artery Chronic cough Diverticulosis Glioblastoma (01/04/22) Dx 01/2022 last chemo 11/2022, surgery 12/2022 [facility] Nasal congestion Hypertension Prostate nodule Post-void dribbling Atherosclerotic heart disease of [place] coronary artery without angina pectoris History of COVID-19 03/2020 BPH (benign prostatic hyperplasia) hx Hyperlipidemia Carotid stenosis, left s/p Left CEA with Bovine Patch Angioplasty (2019) Myocardial Infarction 1989 GERD (gastroesophageal reflux disease) Surgical History Port-A-Cath in place (03/02/23) Insertion of Right Subclavian Access Port with Fluoroscopy(Right) - Jewel Clarke MD, FACS History of anesthesia complications "During prior anesthetic on 01/22 patient was noted to have labile pressures during induction with propofol, first with extreme hypertension (systolic up to 196) and then hypotension requiring NE gtt" [place] [facility] [place] Hx of transurethral resection of prostate 2017 History of craniotomy (12/15/22) 1. Redo Right Temporal craniotomy for resection of brain lesion. 2. Use of Stealth neuronavigation. Dr. Macario Jordan at [facility] S/P bronchoscopy 02/2022 History of craniotomy 01/04/22 History of cataract surgery R/L S/P carotid endarterectomy Left CEA with Bovine Patch Angioplasty (2019) History of cystoscopy History of colonoscopy History of tooth extraction Hx of angioplasty 1989 [facility] Family History Father , 86yo Lung cancer Myocardial infarction Hypertension Mother , 92yo Pacemaker Hypertension Sister H/O carotid endarterectomy Stroke following surgery; Hypertension Dyslipidemia Sister Dyslipidemia Hypertension Melanoma Sister Hypertension Denies family history of Ovarian cancer Prostate cancer Breast cancer Colorectal cancer Social History Smoking Status: Former smoker Tobacco Type: Cigarettes Age Started Using Tobacco: 13; Age Quit Using Tobacco: 38; packs per day: 2; Cigarettes Per Day: [id number]; Second Hand Exposure: Yes (hx as child); Do You Dip or Chew Tobacco: No; Hx Alcohol Use: No Hx Substance Use: No Preferred Language: Danish Communication Ability: Effective Visual Impairment: No Limitations Hearing Ability: Use of Hearing Aid [place] Machine Operator Required: No Beliefs That Will Affect Care: None marital status: marital status details: Amrita Current Living Situation: Spouse current occupational status: retired How many Children do You have: 0 Feels Safe at Home: Yes Childhood Exposure to Second-Hand Smoke: Yes (father ) Diet: regular Diet Comment: attempts a healthy diet caffeine: Yes (3 cups daily ) during the past year weight has: remained stable Dental Care, Regularly: Yes Physical Activity Frequency: Daily Seatbelt Use: always Sunscreen Use: No Assistive Devices: Cane Physical Exam Physical Exam: General: Greatly improved alertness and mentation compared to when patient was assessed in [facility]. He is oriented to name and place, gives appropriate answers to questions. HEENT: Pupils equal and reactive to light and accommodation. Vision grossly intact. hard of hearing. No visual field cuts to confrontation Pulm: CTAB A&P. -wheezes, -rales, -rhonchi. Symmetrical chest rise. No increased work of breathing. No respiratory distress. Cardiac: Mild tachycardia, -mrg. Radial pulses intact and symmetrical. Abdominal: Nontender, nondistended, soft. BS present. Extremity: 5/5 strength to right interlocking pavement installer, right elbow flexion, shoulder flexion, hip flexion, ankle dorsiflexion/plantarflexion, knee extension. Left extremity with very slight left lower leg tremor which quiets on intention/focus. Patient is very hard of hearing, once given instructions with a loud tone patient is able to demonstrate 5/5 left interlocking pavement installer, elbow flexion, hip flexion, ankle dorsiflexion/plantarflexion and endorses symmetrical intact sensation to soft touch in the hands and feet. Does have some left finger-nose dysmetria, denies any change in his coordination and that this is normal. Lower extremities warm and well-perfused Results & Data Results & Data Vital Signs (Past 12 Hours) Vital Signs Temp Pulse Pulse Resp BP BP Pulse Ox 04/25/23 16:25 91 H 16 159/90 H 91 04/25/23 13:45 95 04/25/23 13:45 37 C 81 24 133/87 95 04/25/23 13:39 81 O2 Del Method 04/25/23 16:25 04/25/23 13:45 Room Air 04/25/23 13:45 Room Air 04/25/23 13:39 PG Care Time/CCT Total # of Minutes Spent Total Time Spent with Patient: Total time spent is greater than 50% in coordination of care (as documented) at patient's floor/unit and/or counseling patient: Coding Level of Care Code 53690 INT INP/OBS CARE MIN Diagnoses Partial seizure R56.9 UTI (urinary tract infection) N39.0 Glioblastoma C71.9 CAD (coronary artery disease) I25.10 BPH (benign prostatic hyperplasia) N40.0
[2023-04-25] MEDS ORDERED: LACOSAMIDE 100 MG in SODIUM CHLORIDE 0.9% 50 ML IV STA (16:57)
[2023-04-25] MEDS ORDERED: LORazepam 2 MG in SYRINGE 1 ML IV PRN (17:00)
[2023-04-25] MEDS ORDERED: diphenhydrAMINE 50 MG/ML VIAL IV PRN (17:18)
[2023-04-25] MEDS ORDERED: cefTRIAXone SODIUM 2,000 MG in DEXTROSE 5 % MINI-B 50 ML IV SCH (18:00)
[2023-04-25] MEDS ORDERED: POLYETHYLENE (MIRALAX) 17 GM PACK PO PRN (20:46)
[2023-04-25] MEDS ORDERED: ONDANSETRON 4 MG OD TAB PO PRN (20:46)
[2023-04-25] MEDS ORDERED: ACETAMINOPHEN 500 MG TAB PO PRN (20:46)
[2023-04-25] MEDS ORDERED: NITROGLYCERIN SL 0.4 MG/TAB TAB SL PRN (20:46)
[2023-04-25] MEDS ORDERED: ATORVASTATIN 40 MG TAB PO SCH (21:00)
[2023-04-25] MEDS ORDERED: LACOSAMIDE 50 MG TABLET PO SCH (21:00)
[2023-04-25] MEDS ORDERED: GADOBUTROL 65ML VIAL IV ONE (22:01)
--- NOTE | 2023-04-25 23:10 | Magnetic Resonance Report ---
Exam(s): MRI HEAD W/WO Contrast IV Amt: 8.7cc gadavist EXAM: MR Head Without and With Intravenous Contrast CLINICAL HISTORY: Reason for exam: seizure, history of glioblastoma resection. TECHNIQUE: Magnetic resonance images of the head/brain without and with intravenous contrast in multiple planes. CONTRAST: Patient received 8.7cc gadavist of IV contrast COMPARISON: No relevant prior studies available. FINDINGS: Brain: Right-sided subdural hematoma measuring 6.4 mm in greatest thickness without significant mass-effect. Postoperative changes right posterior temporal lobe resection. Vasogenic edema is identified in the adjacent brain parenchyma. There is enhancement involving the surrounding brain parenchyma about the postoperative surgical region. No acute infarct. Ventricles: Unremarkable. No ventriculomegaly. Bones/joints: Unremarkable. No acute fracture. Sinuses: Unremarkable as visualized. No acute sinusitis. Mastoid air cells: Unremarkable as visualized. No mastoid effusion. Orbits: Unremarkable as visualized. IMPRESSION: Postoperative changes right temporal lobe mass resection with subtle enhancement involving the adjacent brain. Findings may represent local recurrence versus residual neoplasm. Electronically signed by: Kirby Mullins MD 04/25/23 23:09 PM
[2023-04-26 06:13] LABS: Basophils # (auto) 0.08 K/uL (0.00-0.20); Basophils % (auto) 0.7 %; Eosinophils % (auto) 5.5 %; Hematocrit (blood only) 33.2 % (42.0-52.0); Hemoglobin 11.1 g/dl (14.0-18.0); Immature Granulocytes # (auto) 0.15 K/uL (0.01-0.20); Immature Granulocytes % (auto) 1.4 %; Lymphocytes # (auto) 1.09 K/uL (1.20-3.40); Mean Corpuscular Hemoglobin 32.9 pg (25.0-34.0); Mean Corpuscular Hgb Conc 33.4 g/dL (32.0-36.0); Mean Corpuscular Volume 98.5 fL (80.0-100.0); Mean Platelet Volume 9.3 fL (9.4-12.4); Monocytes # (auto) 1.76 K/uL (0.11-0.59); Monocytes % (auto) 16.1 %; Neutrophils # (auto) 7.26 K/uL (1.40-6.50); Neutrophils % (auto) 66.3 %; Platelet Count 315 K/uL (130-400); RDW Coefficient of Variation 17.3 % (11.5-14.5); RDW Standard Deviation 62.1 fL (36.4-46.3); Red Blood Count 3.37 M/uL (4.70-6.10); White Blood Count 10.94 K/ul (4.8-10.8)
[2023-04-26 06:37] LABS: BUN Creatinine Ratio 9.4 (10-20); Calcium 8.6 mg/dl (8.6-10.3); Creatinine Clr Calc Pharmacy 72.9 ml/min; Est GFR (African American) 96.7 ml/min; Est GFR (Non-African American) 83.5 ml/min; Potassium 3.9 mmol/L (3.5-5.1)
[2023-04-26] MEDS ORDERED: METOPROLOL SUCC 50MG EXT REL TAB PO SCH (09:00)
[2023-04-26] MEDS ORDERED: ASPIRIN 81 MG ECTAB PO SCH (09:00)
[2023-04-26] MEDS ORDERED: FAMOTIDINE 20 MG TAB PO SCH (09:00)
[2023-04-26] MEDS ORDERED: lisinopril 10 MG TAB PO SCH (09:00)
[2023-04-26] MEDS ORDERED: MULTIVITAMIN TAB PO SCH (09:00)
[2023-04-26] MEDS ORDERED: CHOLECALCIFEROL 5,000 UNITS 125 MCG TAB PO SCH (09:00)
[2023-04-26] MEDS ORDERED: FINASTERIDE 5 MG TAB PO SCH (09:00)
[2023-04-26] MEDS ORDERED: LACOSAMIDE 50 MG TABLET PO SCH (09:00)
--- NOTE | 2023-04-26 11:21 | Electrocardiogram Report ---
Test Reason : Blood Pressure : / mmHG Vent. Rate : 076 BPM Atrial Rate : 076 BPM P-R Int : 138 ms QRS Dur : 084 ms QT Int : 392 ms P-R-T Axes : 036 013 028 degrees QTc Int : 441 ms Normal sinus rhythm Normal ECG When compared with ECG of 05-APR-2023 14:08, No significant change was found Confirmed by Jay Rhodes ([id number]) on 04/26/2023 11:21:03 AM Referred By: Confirmed By:Justin Rhodes
--- NOTE | 2023-04-26 11:55 | Discharge Summary ---
Date of Service April 26, 2023 Admission HPI Per Admitting Provider Jose is a 69-year-old male with past medical history of glioblastoma grade 4 with a history of chemoradiation, surgical resection 12/2022, history of seizures with discontinuation of Keppra due to induction of alcohol craving now on lacosamide, BPH, CAD, GERD who was at [facility] for a port flush (no infusions) when he developed left arm spasms and shaking consistent with partial seizure activity. He was referred to the ER for additional care after receiving 2 mg of Ativan. While in the ER leukocytosis of 11.19, mildly hyponatremic at 133, BSG was 109 and at time of seizure and code purple was 136, high sensitive troponin is negative, and he is satting normally on room air at time of hospital assessment. EKG normal sinus rhythm Patient seen at the bedside for reevaluation and hospital assessment. Mental status is greatly improved, confusion has nearly completely resolved. He is hard of hearing but answers questions appropriately and is oriented to name and place. He continues to have some slight tremoring of his left lower extremity however unlike earlier with his code purple he is able to consciously stop the shaking and feels at his normal baseline. He denies headache, vision change, numbness/tingling, chest pain, chest pressure, shortness of breath. He does endorse dysuria and hematuria for at least several days and a feeling of night sweats. Denies abdominal pain. Clarified with patient's that patient has actually been switched to Vimpat 100 mg daily rather than twice daily as when he was on it twice daily he had an episode of hives and was told that cutting it in half may help him tolerate it better Medical History: Reviewed Medications: Reviewed Surgical History: Reviewed Family history: Reviewed Allergies: Reviewed Social History: Reviewed Code Status: Full code Principal Diagnosis Recurrent partial seizures, suspected UTI Discharge Exam General-alert and oriented x3, no fever, no chills HEENT-head atraumatic and normocephalic, pupils equal and reactive to light, extraocular muscles intact Neck-no lymphadenopathy or thyromegaly, trachea midline Chest-clear to auscultation. No rales, wheezing or rhonchi Cardiac-regular rate and rhythm, normal S1 and S2 Abdomen-normal bowel sounds, nontender, no hepatosplenomegaly Extremities-no cyanosis, clubbing, or edema Neuro-cranial nerves II through XII intact, motor and sensory function within normal limits, strength symmetrical, no focal deficits Psych-normal affect, normal mood Discharge Data Allergies Allergy/AdvReac Type Severity Reaction Status Date / Time No Known Allergies Allergy Unknown Verified 04/10/23 12:28 Consultations 04/25/23 16:25 ED Decision to Admit Stat Ordered Studies 04/25/23 13:59 CT head/brain wo con Stat 04/25/23 17:19 MRI Brain [MR brain wo/w con] Routine Hospital Course (1) Partial seizure: Apparently he was only taking his Vimpat once daily. This has been increased to twice daily. Head CT scan and MRI scan findings are stable. He has a known glioblastoma multiform a that was resected from the right posterior temporal area and there is vasogenic edema and subdural hematoma which is not new. There is some concern for residual tumor. He is being followed as an outpatient by oncology. (2) UTI (urinary tract infection): Suspected on admission. Cultures are pending. Treated with intravenous Rocephin while hospitalized. He will be discharged on Keflex. (3) Glioblastoma: Status postresection. Continue follow-up with outpatient oncology (4) CAD (coronary artery disease): Stable. Continue metoprolol, aspirin, atorvastatin, lisinopril (5) BPH (benign prostatic hyperplasia): Stable. Continue dutasteride. Plan Home today, April 26. He will take Vimpat twice daily and also continue Keflex for a few more days Total Time Total Time Spent Total Time Spent (In Minutes): 45-minute Discharge Plan Discharge Items Patient Disposition: Home - Self-Care Reason For Visit: PARTIAL SEIZURE, UTI Discharge Diagnosis: Recurrent partial seizure, suspected UTI Activity: Resume your previous activity Non-emergency contact: Primary Care Provider and Oncologist Call non-emergency contact if: you have any medication questions and your symptoms worsen Follow-up/Referrals: Leonardo Gates CRNP [Primary Care Provider] - Diet: Regular and Heart Healthy Addtl Attending Provider Instructions: Vimpat has been increased to twice daily dosing. Take Keflex antibiotic for 3 more days Pending Studies at Discharge: Yes Studies:: Urine culture results Stand-Alone Forms: [email or web address], Smoking Cessation Medications and DC Order Prescriptions: New cephalexin 500 mg capsule 500 mg PO TID Qty: 9 0RF Rx Instructions: Take for 3 more days lacosamide 100 mg tablet 100 mg PO BID Qty: 60 0RF Continued multivitamin [Multiple Vitamins] Tablet 2 tab PO QAM Patient Comments: anaya dutasteride [Avodart] 0.5 mg capsule 0.5 mg PO QAM Qty: 90 1RF metoprolol succinate 50 mg tablet extended release 24 hr 50 mg PO QAM Qty: 90 1RF lisinopril 10 mg tablet 10 mg PO QAM Qty: 90 3RF nitroglycerin 0.4 mg tablet, sublingual 0.4 mg sublingual Q5M PRN (Reason: Chest Pain) Qty: 25 3RF Rx Instructions: do not exceed 3 doses per episode ondansetron 8 mg tablet,disintegrating 8 mg PO Q12H PRN (Reason: TAKE PRIOR TO CHEMO MED) lacosamide [Vimpat] 100 mg tablet 100 mg PO BID Qty: 60 3RF acetaminophen [Tylenol Extra Strength] 500 mg Tablet 500 - 1,000 mg PO UD PRN (Reason: Pain) Citrucel Sugar Free Powder 2 g PO QAM Beano 450 unit Tablet,Disintegrating 450 unit PO BID PRN (Reason: Gi Upset) aspirin 81 mg Tablet,Delayed Release (Dr/Ec) 81 mg PO QAM Qty: 30 0RF famotidine 20 mg Tablet 20 mg PO QAM cholecalciferol (vitamin D3) [Vitamin D3] 125 mcg (5,000 unit) Tablet 125 mcg PO QAM atorvastatin 40 mg tablet 40 mg PO HS Discharge Orders: Discharge Order (Routine); Ordered 04/26/23 Ordered By: Ruben Sanchez Admission Data Admit Date/Time: 04/25/23 17:19 Attending Provider: Ruben Sanchez Admit Provider: Dusty López Primary Care Provider: Leonardo Gates Other Providers: Dusty López Coding Level of Care Code 75406 INP/OBS DISCH >30 MIN Diagnoses Partial seizure R56.9 UTI (urinary tract infection) N39.0 Glioblastoma C71.9 CAD (coronary artery disease) I25.10 BPH (benign prostatic hyperplasia) N40.0
--- NOTE | 2023-04-26 12:24 | Communication Note ---
Date of Service: April 26, 2023 By CMS guidelines, a determination that the admission or continued stay is not medically necessary has been made by a member of the UR committee and a phy sician for this hospital stay, therefore a Code 44 will be completed and the Inpatient admission will be changed to outpatient.
[2023-04-26] MEDS ORDERED: HEPARIN 100 UNIT/ML 5ML FLUSH ONE (12:40)
== END 2023-04-26 13:01 | disposition home or self-care (01) ==
LOC: ED 13:18 → INTOOBSV 17:19 → SUATTDRO 17:19 → EDINP 17:19

== ENCOUNTER 2023-08-14 09:14 | Inpatient (IN) ==
--- NOTE | 2023-08-14 09:42 | Emergency Department Note ---
History of Present Illness General Chief complaint: TIA Symptoms Stated complaint: SLURRED SPEECH, FACIAL DROOP Time Seen by Provider: 08/14/23 09:27 Source: patient, family ( was at the bedside), RN notes reviewed and old records reviewed (07/27/23-radiation oncology progress note) Mode of arrival: ambulatory Limitations: no limitations History of Present Illness This patient is a 77-year-old male who has a history of progressive glioblastoma, comes in with facial droop that is been there for several days since at least Monday. His last chemo was on August 08. He is apparently on carboplatin after statin. He also takes Vimpat for seizures he had no recent seizures. He is on a new chemo agent and is followed by Dr. Shore. No numbness or weakness acutely in the arms or legs no headache no fall or trauma no change in vision no fever no chest pain or shortness of breath. He is finishing an antibiotic Levaquin for urinary tract infection his urinary symptoms have resolved. He is on dexamethasone 2 mg a day. Home Medications Medication Instructions Recorded Confirmed Type multivitamin (Multiple Vitamins 2 tab PO QAM 02/02/22 08/14/23 History tablet) acetaminophen 500 mg tablet 500 - 1,000 mg PO UD PRN Pain 02/11/22 08/14/23 History (Tylenol Extra Strength) [id number] 450 unit 450 unit PO BID PRN Gi Upset 02/11/22 08/14/23 History disintegrating tablet (Beano) methylcellulose (laxative) 2 g PO QAM 02/11/22 08/14/23 History (Citrucel Sugar Free oral powder) ondansetron 8 mg disintegrating 8 mg PO Q12H PRN TAKE PRIOR TO 02/11/22 08/14/23 History tablet CHEMO MED aspirin 81 mg tablet,delayed 81 mg PO QAM #30 tabs 02/17/22 08/14/23 Rx release cholecalciferol (vitamin D3) 125 125 mcg PO QAM 02/22/23 08/14/23 History mcg (5,000 unit) tablet (Vitamin D3) famotidine 20 mg tablet 20 mg PO QAM 02/22/23 08/14/23 History lisinopril 10 mg tablet 10 mg PO QAM #90 tabs 02/27/23 08/14/23 Rx nitroglycerin 0.4 mg sublingual 0.4 mg sublingual Q5M PRN Chest 04/07/23 08/14/23 Rx tablet Pain #25 tabs lacosamide 100 mg tablet (Vimpat) 100 mg PO BID #60 tabs 04/13/23 08/14/23 Rx atorvastatin 40 mg tablet 40 mg PO HS #90 tabs 04/27/23 08/14/23 Rx dexamethasone 2 mg tablet 2 mg PO QAM 07/04/23 08/14/23 History docusate sodium 100 mg tablet 100 mg PO DAILY PRN Constipation 07/19/23 08/14/23 History dutasteride 0.5 mg capsule 0.5 mg PO QAM #90 caps 07/27/23 08/14/23 Rx (Avodart) olanzapine 2.5 mg tablet 2.5 mg PO DAILY 07/27/23 08/14/23 History metoprolol succinate 50 mg 50 mg PO QAM #90 tabs 08/07/23 08/14/23 Rx tablet,extended release 24 hr levofloxacin 500 mg tablet 500 mg PO DAILY 08/14/23 08/14/23 History prochlorperazine maleate 10 mg 10 mg PO Q6H PRN Other 08/14/23 08/14/23 History tablet Allergies Allergy/AdvReac Type Severity Reaction Status Date / Time No Known Allergies Allergy Unknown Verified 07/27/23 13:43 Past Med/Surg History Medical History Glioblastoma Weakness of left arm "since having 2nd brain sx in 12/2022" Seizure hx-most recent 04/25/23, brought to [facility]>no reoccurences since starting medication; f/u [place] neuro Anemia hx CAD (coronary artery disease) inferior wall RI 1989 s/p PTCA of the CX artery Diverticulosis Hypertension Prostate nodule Post-void dribbling Atherosclerotic heart disease of [place] coronary artery without angina pectoris History of COVID-19 03/2020- tested d/t testing positive, patient was asymptomatic BPH (benign prostatic hyperplasia) hx Hyperlipidemia Carotid stenosis, left s/p Left CEA with Bovine Patch Angioplasty (2019) Myocardial Infarction 1989 GERD (gastroesophageal reflux disease) Surgical History Port-A-Cath in place Insertion of Right Subclavian Access Port History of anesthesia complications "During prior anesthetic on 01/22 patient was noted to have labile pressures during induction with propofol, first with extreme hypertension (systolic up to 196) and then hypotension requiring NE gtt" per 12/2022 [facility] [place] Hx of transurethral resection of prostate 2017 History of craniotomy 01/2022, [facility] [place], sx for glioblastoma 12/2022, [facility] [place], 1. Redo Right Temporal craniotomy for resection of brain lesion; 2. Use of Stealth neuronavigation.; Dr. Macario Jordan at [facility] S/P bronchoscopy 02/2022 History of cataract surgery R/L S/P carotid endarterectomy Left CEA with Bovine Patch Angioplasty (2019) History of cystoscopy History of colonoscopy History of tooth extraction Hx of angioplasty 1989 Family History Father , 86yo Lung cancer Myocardial infarction Hypertension Mother , 92yo Pacemaker Hypertension Sister H/O carotid endarterectomy Stroke following surgery; Hypertension Dyslipidemia Sister Dyslipidemia Hypertension Melanoma Sister Hypertension Denies family history of Ovarian cancer Prostate cancer Breast cancer Colorectal cancer Social History Smoking Status: Former smoker Tobacco Type: Cigarettes Age Started Using Tobacco: 13; Age Quit Using Tobacco: 38; packs per day: 2; Cigarettes Per Day: [id number]; Second Hand Exposure: No; Do You Dip or Chew Tobacco: No; Tobacco Cessation Education Requested by Patient: No Hx Alcohol Use: No Hx Substance Use: No Preferred Language: Jordanian Communication Ability: Effective Visual Impairment: No Limitations Hearing Ability: Use of Hearing Aid Bedspread Cutter Hand Required: No Beliefs That Will Affect Care: None marital status: marital status details: Amrita Current Living Situation: Spouse current occupational status: retired How many Children do You have: 0 Other Information That Helps Us Care for You: No Feels Safe at Home: Yes Safety Concerns: Feels Safe At This Time Childhood Exposure to Second-Hand Smoke: Yes (father ) Diet: regular Diet Comment: attempts a healthy diet caffeine: Yes (3 cups daily ) during the past year weight has: remained stable Dental Care, Regularly: Yes Physical Activity Frequency: Daily Seatbelt Use: always Sunscreen Use: No Assistive Devices: None Review of Systems A total of 10 systems reviewed and were otherwise negative Physical Exam Vital Signs Vital Signs - 24 hr 08/14/23 09:16 08/14/23 09:26 08/14/23 10:00 Temperature 36.7 C 36.8 C Temperature Source Temporal Artery Scan Oral Pulse Rate 72 59 L Pulse Rate [Apical] 62 Pulse Rhythm Regular Pulse Rhythm [Apical] Regular Pulse Strength [Apical] Normal Respiratory Rate 20 20 Respiratory Effort / Characteristics Non-Labored Spontaneous Non-Labored Spontaneous Respiratory Depth Normal Normal Respiratory Pattern Regular Blood Pressure 189/79 H Blood Pressure [Right Arm] 187/113 H Blood Pressure Mean 115 Blood Pressure Mean [Right Arm] 137 Blood Pressure Position [Right Arm] Semi-fowlers Pulse Oximetry 97 98 Oxygen Delivery Method Room Air Room Air Sepsis Recent Fever Within 48 Hours No Sepsis New/Unexplained Change in Mental Status No Sepsis Action Taken by Nursing No Action Required 08/14/23 10:00 Temperature Temperature Source Pulse Rate 62 Pulse Rate [Apical] Pulse Rhythm Regular Pulse Rhythm [Apical] Pulse Strength [Apical] Respiratory Rate 20 Respiratory Effort / Characteristics Respiratory Depth Respiratory Pattern Blood Pressure Blood Pressure [Right Arm] Blood Pressure Mean Blood Pressure Mean [Right Arm] Blood Pressure Position [Right Arm] Pulse Oximetry 98 Oxygen Delivery Method Room Air Sepsis Recent Fever Within 48 Hours Sepsis New/Unexplained Change in Mental Status Sepsis Action Taken by Nursing General: Well developed well nourished older male who appears in no acute distress, breathing comfortably on room air. Normal speech HEENT: Normal cephalic atraumatic. Pupils are equal round and reactive to light. Extraocular movements are intact. Oropharynx is pink with moist mucous membranes. No swelling of the mouth lips or tongue. Neck: Supple with a midline trachea. No meningeal signs or stiffness, no JVD or bruits. No Stridor. Chest: Clear to auscultation bilaterally. No wheezes or rhonchi. No increased work of breathing. Heart: Regular rate and rhythm without murmurs or gallops. Abdomen: Soft nontender, nondistended without rebound guarding or rigidity. Extremities: No cyanosis clubbing or edema. No calf tenderness or assymetry Spine/Back. Non tender to palpation. No CVA tenderness Skin: Good turgor without rashes. Neurologic exam: He does have a facial droop on the right with weakness of the 7th cranial nerve but otherwise cranial nerves two through 12 are intact. Motor and sensation are intact and symmetrical throughout. Course Administered Medications Discontinued Medications Dexamethasone Sodium Phosphate (DexamethasonePf 10 Mg/Ml Vial) 4 mg IV NOW ONE Stop: 08/14/23 10:56 Last Admin: 08/14/23 11:03 Dose: 4 mg Documented By: REYES Medical Decision Making Differential Diagnosis Stroke, cerebral edema, intracranial hemorrhage, complication related to brain tumor, sepsis, electrolyte or metabolic abnormality Medical Records Attestation: I reviewed the patient's medical records. Home Medications Current Medication List: was personally reviewed by me Laboratory Data Attestation: I reviewed the patient's lab results. 08/14/23 09:56 08/14/23 09:56 Lab Results 08/14/23 08/14/23 Range/Units 09:34 09:56 WBC 11.20 H (4.8-10.8) K/ul RBC 3.73 L (4.70-6.10) M/uL Hgb 13.1 L (14.0-18.0) g/dl Hct 38.6 L (42.0-52.0) % MCV 103.5 H (80.0-100.0) fL MCH 35.1 H (25.0-34.0) pg MCHC 33.9 (32.0-36.0) g/dL RDW Std Deviation 58.3 H (36.4-46.3) fL RDW Coeff of Nick 15.4 H (11.5-14.5) % Plt Count 189 (130-400) K/uL MPV 9.4 (9.4-12.4) fL Immature Gran % (Auto) 2.2 % Neut % (Auto) 77.3 % Lymph % (Auto) 12.8 % Dolores % (Auto) 7.4 % Eos % (Auto) 0.1 % Baso % (Auto) 0.2 % Neut # (Auto) 8.66 H (1.40-6.50) K/uL Lymph # (Auto) 1.43 (1.20-3.40) K/uL Dolores # (Auto) 0.83 H (0.11-0.59) K/uL Eos # (Auto) 0.01 (0.00-0.50) K/uL Baso # (Auto) 0.02 (0.00-0.20) K/uL Immature Gran # (Auto) 0.25 H (0.01-0.20) K/uL Absolute Nucleated RBC 0.04 (0.00-0.12) K/uL Nucleated RBC % (auto) 0.4 % PT 10.9 (9.0-12.0) Seconds INR 1.0 (0.9-1.1) APTT 28 (21-31) Seconds PTT Ratio 1.0 Sodium 136 (136-145) mmol/L Potassium 4.1 (3.5-5.1) mmol/L Chloride 102 (98-107) mmol/L Carbon Dioxide 27 (21-32) mmol/L Anion Gap 7 (3-11) BUN 21 (6-23) mg/dl Creatinine 0.58 L (0.6-1.4) mg/dl Est Cr Clr Drug Dosing 107.7 ml/min Est GFR ( Amer) 113.2 ml/min Est GFR (Non-Af Amer) 97.7 ml/min BUN/Creatinine Ratio 36.2 H (10-20) Glucose 70 (70-99(Fasting)) mg/dl POC Glucose 78 (70-99) mg/dl Calcium 8.6 (8.6-10.3) mg/dl Total Bilirubin 0.7 (0.2-1.0) mg/dl AST 39 (13-39) U/L ALT 68 H (7-52) U/L Alkaline Phosphatase 122 H (34-104) U/L Total Protein 6.3 (6.0-8.3) gm/dl Albumin 3.4 (3.4-5.0) gm/dl Globulin 2.9 (2.5-4.0) gm/dl Albumin/Globulin Ratio 1.2 (0.9-2) TSH 3.666 (0.300-4.500) uIu/ml Imaging Data Attestation: I personally reviewed and interpreted this imaging study as follows: My Impression: CT head-there is a hypodense area in the right brain Chest x-man port in place. No acute infiltrate, failure, pneumothorax seen. Radiologist's Impression: Chest X-Ray 08/14/23 09:36 SINGLE VIEW CHEST CLINICAL HISTORY: Generalized weakness. FINDINGS: An AP, portable, upright chest radiograph is compared to study dated 07/20/2023 and correlated with chest CT dated 02/25/2022. The examination is degraded by portable technique and apical lordotic positioning. A right subclavian central venous infusion port is unchanged in position. The cardiomediastinal silhouette is top normal for projection. Chronic reticular thickening is similar to previous. There is bibasilar scarring/atelectasis. No airspace consolidation or large pleural effusion is identified. No pneumothorax is seen. The skeletal structures are osteopenic. There are chronic/healed left- sided rib fractures. IMPRESSION: No acute cardiopulmonary abnormality is identified. ACT 112: Negative or not required by law. Electronically signed by: Joseph Duque M.D. 08/14/2023 9:[address] 08/14/23 09:36 CT OF THE HEAD WITHOUT CONTRAST CLINICAL HISTORY: brain ca, rt facial droop COMPARISON STUDY: MRI of the brain June 05, 2023. Head CT July 04, 2023. CT DOSE: 547.75 mGy.cm TECHNIQUE: Helical axial images of the head were obtained without IV contrast. Automated exposure control was utilized for the study. A dose lowering technique was utilized adhering to the principles of ALARA. FINDINGS: No acute intracranial hemorrhage is present. Ventricular system is stable. Basal cisterns are patent. The appearance of the right sided craniotomy is unchanged. Edema within the right cerebral hemisphere has improved since CT of July 04, 2023. A 2.6 x 1.4 cm hyperdense lesion within the operative bed on image 11 of 28 has slightly decreased in size since CT of July 04, 2023 when it measured 2.7 x 1.6 cm. There are no findings to suggest acute dural sinus thrombosis or acute territorial infarct. There are no calvarial fractures. IMPRESSION: 1. No acute intracranial hemorrhage. 2. Slight decrease in size of the 2.6 x 1.4 cm hypodense lesion within the operative bed since prior CT. This favors recurrent/residual tumor. 3. Continued improvement in right cerebral edema since prior head CT. ACT 112: Negative or not required by law. Electronically signed by: Sami Hernandez M.D. 08/14/2023 10:23 AM ECG Data Attestation: I personally reviewed and interpreted this ECG as follows: Indication: + weakness Rate (beats per minute): 59 Rhythm: + normal sinus ECG Intervals/blocks: + Normal QRS, + Normal QT and + Normal CO ECG [place]: + Normal ECG ST segments: + Normal ST segments ECG Findings: + PACs; no PVCs Comparison ECG Date: from (07/04/23) Change: the following changes noted (PACs are now present) MDM Narrative This patient comes in with known progressive glioblastoma and now has weakness on the right side of his face. Is been going on for several days at this point he says since at least Monday. I think most likely this is related to his brain tumor/edema. He is on dexamethasone 2 mg IV I did order CAT scan of his head and multiple blood testing he reports no recent seizure. EKG shows no ischemic changes he does have PACs but is had no chest pain shortness of breath or syncope. He is on Levaquin for recent UTI however his symptoms are gotten better he is afebrile here. His chest x-ray was clear and he has no respiratory symptoms. There is nothing to suggest pneumonia or pneumothorax or CHF. His CAT scan shows his known tumor and edema which actually looks better than before. I did give him Decadron 4 mg IV. I discussed case with Dr. Shore, who is on for hematology oncology. I also discussed the case with Dr. Valderrama and the hospitalist group. I am concerned that he has strokelike symptoms which may be related to his cancer however his cancer/CT scan looks better. It is possible he could have a stroke or other neurologic reason causing his symptoms. He is certainly outside the window for any tPA or vascular intervention but I do think needs further workup/admission/observation. Continuous cardiac monitoring: Orders placed in EMR for continuous payable processor call upon my evaluation patient noted to be in normal sinus rhythm with a rate of 60 with PACs occasionally Impression & Plan Weakness on right side of face, Glioblastoma, Vasogenic cerebral edema, Recent urinary tract infection Discharge Plan Visit Data Chief Complaint: TIA Symptoms Stated Complaint: SLURRED SPEECH, FACIAL DROOP ED Provider: Aaron Dejesus Discharge Problem: Weakness on right side of face, Glioblastoma, Vasogenic cerebral edema, Recent urinary tract infection Patient Disposition: Admitted As Inpatient Discharge Instructions Interventions: ED Discharge Assessment Last Done: 08/14/23 12:10
--- NOTE | 2023-08-14 09:54 | XRay Report ---
SINGLE VIEW CHEST CLINICAL HISTORY: Generalized weakness. FINDINGS: An AP, portable, upright chest radiograph is compared to study dated 07/20/2023 and correlat ed with chest CT dated 02/25/2022. The examination is degraded by portable technique and apical lordo tic positioning. A right subclavian central venous infusion port is unchanged in position. The cardio mediastinal silhouette is top normal for projection. Chronic reticular thickening is similar to previ ous. There is bibasilar scarring/atelectasis. No airspace consolidation or large pleural effusion is identified. No pneumothorax is seen. The skeletal structures are osteopenic. There are chronic/healed left-sided rib fractures. IMPRESSION: No acute cardiopulmonary abnormality is identified. ACT 112: Negative or not required by law. Electronically signed by: Joseph Duque M.D. 08/14/2023 9:53 AM
[2023-08-14 10:17] LABS: Basophils # (auto) 0.02 K/uL (0.00-0.20); Basophils % (auto) 0.2 %; Eosinophils # (auto) 0.01 K/uL (0.00-0.50); Eosinophils % (auto) 0.1 %; Hematocrit (blood only) 38.6 % (42.0-52.0); Hemoglobin 13.1 g/dl (14.0-18.0); Immature Granulocytes # (auto) 0.25 K/uL (0.01-0.20); Immature Granulocytes % (auto) 2.2 %; Lymphocytes # (auto) 1.43 K/uL (1.20-3.40); Lymphocytes % (auto) 12.8 %; Mean Corpuscular Hemoglobin 35.1 pg (25.0-34.0); Mean Corpuscular Hgb Conc 33.9 g/dL (32.0-36.0); Mean Corpuscular Volume 103.5 fL (80.0-100.0); Mean Platelet Volume 9.4 fL (9.4-12.4); Monocytes # (auto) 0.83 K/uL (0.11-0.59); Monocytes % (auto) 7.4 %; Neutrophils # (auto) 8.66 K/uL (1.40-6.50); Neutrophils % (auto) 77.3 %; Nucleated RBC # (auto) 0.04 K/uL (0.00-0.12); Nucleated RBC % (auto) 0.4 %; Platelet Count 189 K/uL (130-400); RDW Coefficient of Variation 15.4 % (11.5-14.5); RDW Standard Deviation 58.3 fL (36.4-46.3); Red Blood Count 3.73 M/uL (4.70-6.10)
--- NOTE | 2023-08-14 10:25 | CT Scan Report ---
CT OF THE HEAD WITHOUT CONTRAST CLINICAL HISTORY: brain ca, rt facial droop COMPARISON STUDY: MRI of the brain June 05, 2023. Head CT July 04, 2023. CT DOSE: 547.75 mGy.cm TECHNIQUE: Helical axial images of the head were obtained without IV contrast. Automated exposure con trol was utilized for the study. A dose lowering technique was utilized adhering to the principles o f ALARA. FINDINGS: No acute intracranial hemorrhage is present. Ventricular system is stable. Basal cisterns a re patent. The appearance of the right sided craniotomy is unchanged. Edema within the right cerebral hemisphere has improved since CT of July 04, 2023. A 2.6 x 1.4 cm hyperdense lesion within the opera tive bed on image 11 of 28 has slightly decreased in size since CT of July 04, 2023 when it measured 2.7 x 1.6 cm. There are no findings to suggest acute dural sinus thrombosis or acute territorial infa rct. There are no calvarial fractures. IMPRESSION: 1. No acute intracranial hemorrhage. 2. Slight decrease in size of the 2.6 x 1.4 cm hypodense lesion within the operative bed since prior CT. This favors recurrent/residual tumor. 3. Continued improvement in right cerebral edema since prior head CT. ACT 112: Negative or not required by law. Electronically signed by: Sami Hernandez M.D. 08/14/2023 10:23 AM
[2023-08-14 10:29] LABS: Albumin Globulin Ratio 1.2 (0.9-2); Albumin Level 3.4 gm/dl (3.4-5.0); BUN Creatinine Ratio 36.2 (10-20); Bilirubin,Total 0.7 mg/dl (0.2-1.0); Calcium 8.6 mg/dl (8.6-10.3); Creatinine Clr Calc Pharmacy 107.7 ml/min; Est GFR (African American) 113.2 ml/min; Est GFR (Non-African American) 97.7 ml/min; Globulin 2.9 gm/dl (2.5-4.0); Potassium 4.1 mmol/L (3.5-5.1); Total Protein 6.3 gm/dl (6.0-8.3)
[2023-08-14 10:32] LABS: Partial Thromboplastin Time 28 Seconds (21-31); Prothrombin Time 10.9 Seconds (9.0-12.0)
[2023-08-14 10:43] LABS: Thyroid Stimulating Hormone 3.666 uIu/ml (0.300-4.500)
[2023-08-14] MEDS: dexAMETHasone**PF** 10 MG/ML VIAL IV ONE (11:03)
[2023-08-14] MEDS ORDERED: PHARMACIST DISCHARGE MED REC CONSULT PRN (11:21)
--- NOTE | 2023-08-14 11:21 | History & Physical Report ---
Date of Service August 14, 2023 Assessment & Plan (1) Weakness on right side of face: Plan: -Admit to the PCU on tele -Currently hypertensive with systolics in the low 200's but otherwise stable -Patient presented to the ED this am due to progression of right sided facial weakness which initially started on 08/11/23 -Patient has a known hx of glioblastoma S/P previous craniotomy, currently receiving carboplatin and Avastin [facility] with last course on 08/09/23 -CT of the head/brain on arrival was read as negative for acute findings with improvement in the right cerebral edema and his known lesion -At this time his differential is broad and includes complications from his known glioblastoma, progression/metastases of his tumor, CVA, Shipman's Palsy >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 with complete weakness of the right side of his face with inability to wrinkle the right forehead, raise the right eyebrow, or raise the right side of his moth -With his complex neurologic hx will obtain stat MRI of the brain w/wo con -S/P 2 mg PO dexamethasone this am at home and 4 mg IV in the ED >Will give an additional 3 mg IV now for a total of 9 mg, which is equivalent to 60 mg PO prednisone daily -Will hold antivirals for now as he is stable and without signs of acute HSV inclusion to the eyes, oropharynx, or tympanic membranes -Will start seizure precautions and will allow permissive HTN until MRI of the is read -If he is noted to have a CVA on MRI of the brain, will obtain CTA's of the head/neck -Will obtain TTE if MRI shows new CVA -Will give 243 mg PO aspirin stat if he passes dysphagia screen as he had his home 81 mg prior to arrival -Fall/aspiration precautions -Bedside dysphagia screen, NPO until he is tested -PT/OT consults -BL SCD's for DVT PPX -AM CBC, CMP, mag, PT/INR, A1c, fasting lipid panel (2) Glioblastoma: Plan: -S/P previous resection, chemo, and radiation -Currently receiving carboplatin and Avastin, last course was 08/09/23 -Continue increased dose of dexamethasone for now with possible Shipman's Palsy, if MRI of the brain is positive for CVA then will put him back on his chronic 2 mg PO daily -Continue to follow with the [facility] on discharge (3) UTI (urinary tract infection): Plan: -Diagnosed on UA obtain 08/08/23 -Urine was not sent for culture at that time -Patient states symptoms have resolved since starting Levaquin -Continue BID Levaquin with last dose on 08/16/23 -Will obtain UA and culture (4) Partial seizure: Plan: -Denies recent seizures -No seizure like activity on exam -Did have am dose of lacosamide prior to arrival -Continue BID Lacosamide for now unless he fails his dysphagia screen, then will convert to IV antiepileptic (5) Hypertension: Plan: -Currently hypertensive with systolics in the low 200's -Did have his am antihypertensives -Will allow permissive hypertension until MRI results are back (6) Myocardial Infarction: Plan: -No recent chest pain -Continue aspirin and statin Plan The patient was discussed with Dr. López at the time of the admission History of Present Illness Chief Complaint: Right sided facial droop Primary Care Provider: ELIZABET Pimentel Jose is a 77 year old male with a PMH significant for glioblastoma grade 4 with a history of chemoradiation, surgical resection 12/2022, and currently on carboplatin, Avastin, and dexamethasone, history of seizures with discontinuation of Keppra due to induction of alcohol craving now on lacosamide, HTN, hyperlipidemia, BPH, CAD, GERD who presented to the [facility] ED on 08/14/23 with complaints of right sided facial droop since 08/11/23. He was noted to be hypertensive at 189/79 and bradycardic at 59 but otherwise stable. Labs were significant for a leukocytosis of 11 with neutrophil predominance of 8, glucose of 70, ALT of 68. Chest xray was read as negative for acute findings. CT of the head/brain wo con was read as "1. No acute intracranial hemorrhage. 2. Slight decrease in size of the 2.6 x 1.4 cm hypodense lesion within the operative bed since prior CT. This favors recurrent/residual tumor. 3. Continued improvement in right cerebral edema since prior head CT.". Prior to admission the patient was given 4 mg. We were asked to admit the patient for ongoing evaluation of his neurologic symptoms. At the time of the exam the patient was sitting in bed in no acute distress with his bedside, history was obtained from both. The patient states that he started noticing some right sided facial droop on 08/11/23, but it was reportedly mild. He was unsure if the facial droop was due to an issue with his dentures. He notes that over the past 48 hours he has had difficulty drinking liquids as they would run out the right side of his mouth. He denies having difficulty taking his medications and/or eating solids. His states that when she woke him this am to give him medications he had increased right facial droop leading to ED evaluation. He did have all his am medications including his 2mg PO dexamethasone, currently course of Levaquin for UTI diagnosed on 08/08/23, and his am antihypertensives. The patient denies recent headache, changes in vision, hearing, taste, smell, new paresthesias/weakness, insect bites/rashes, chest pain, SOB, and pain, nausea, vomiting, diarrhea, dysuria, hematuria, melena, LE swelling, and recent trauma. He notes that since his last admission to [facility] in April for recurrent partial seizures he has had chronic weakness and paresthesias in the LUE, these are unchanged compared to baseline. His last course of chemotherapy was on 08/09/23 and was without complication. He is a full code and his would make medical decisions for him if he cannot make them himself. Patient is currently on a 7 day course of Levaquin due to UTI diagnosed on 08/08/23; unfortunately it does not appear that his urine sample from 08/07 was ever sent for culture. Please refer to Dr. López's attestation for any changes to the treatment plan. Allergies Allergy/AdvReac Type Severity Reaction Status Date / Time No Known Allergies Allergy Unknown Verified 07/27/23 13:43 Home Medications Medication Instructions Recorded Confirmed Type multivitamin (Multiple Vitamins 2 tab PO QAM 02/02/22 08/14/23 History tablet) acetaminophen 500 mg tablet 500 - 1,000 mg PO UD PRN Pain 02/11/22 08/14/23 History (Tylenol Extra Strength) [id number] 450 unit 450 unit PO BID PRN Gi Upset 02/11/22 08/14/23 History disintegrating tablet (Beano) methylcellulose (laxative) 2 g PO QAM 02/11/22 08/14/23 History (Citrucel Sugar Free oral powder) ondansetron 8 mg disintegrating 8 mg PO Q12H PRN TAKE PRIOR TO 02/11/22 08/14/23 History tablet CHEMO MED aspirin 81 mg tablet,delayed 81 mg PO QAM #30 tabs 02/17/22 08/14/23 Rx release cholecalciferol (vitamin D3) 125 125 mcg PO QAM 02/22/23 08/14/23 History mcg (5,000 unit) tablet (Vitamin D3) famotidine 20 mg tablet 20 mg PO QAM 02/22/23 08/14/23 History lisinopril 10 mg tablet 10 mg PO QAM #90 tabs 02/27/23 08/14/23 Rx nitroglycerin 0.4 mg sublingual 0.4 mg sublingual Q5M PRN Chest 04/07/23 08/14/23 Rx tablet Pain #25 tabs lacosamide 100 mg tablet (Vimpat) 100 mg PO BID #60 tabs 04/13/23 08/14/23 Rx atorvastatin 40 mg tablet 40 mg PO HS #90 tabs 04/27/23 08/14/23 Rx dexamethasone 2 mg tablet 2 mg PO QAM 07/04/23 08/14/23 History docusate sodium 100 mg tablet 100 mg PO DAILY PRN Constipation 07/19/23 08/14/23 History dutasteride 0.5 mg capsule 0.5 mg PO QAM #90 caps 07/27/23 08/14/23 Rx (Avodart) olanzapine 2.5 mg tablet 2.5 mg PO DAILY 07/27/23 08/14/23 History metoprolol succinate 50 mg 50 mg PO QAM #90 tabs 08/07/23 08/14/23 Rx tablet,extended release 24 hr levofloxacin 500 mg tablet 500 mg PO DAILY 08/14/23 08/14/23 History prochlorperazine maleate 10 mg 10 mg PO Q6H PRN Other 08/14/23 08/14/23 History tablet Past Med/Surg History Medical History Glioblastoma Weakness of left arm "since having 2nd brain sx in 12/2022" Seizure hx-most recent 04/25/23, brought to [facility]>no reoccurences since starting medication; f/u [place] neuro Anemia hx CAD (coronary artery disease) inferior wall [place] 1989 s/p PTCA of the CX artery Diverticulosis Hypertension Prostate nodule Post-void dribbling Atherosclerotic heart disease of [place] coronary artery without angina pectoris History of COVID-19 03/2020- tested d/t testing positive, patient was asymptomatic BPH (benign prostatic hyperplasia) hx Hyperlipidemia Carotid stenosis, left s/p Left CEA with Bovine Patch Angioplasty (2019) Myocardial Infarction 1989 GERD (gastroesophageal reflux disease) Surgical History Port-A-Cath in place Insertion of Right Subclavian Access Port History of anesthesia complications "During prior anesthetic on 01/22 patient was noted to have labile pressures during induction with propofol, first with extreme hypertension (systolic up to 196) and then hypotension requiring NE gtt" per 12/2022 [facility] anesthesia records Hx of transurethral resection of prostate 2017 History of craniotomy 01/2022, [facility], sx for glioblastoma 12/2022, [facility], 1. Redo Right Temporal craniotomy for resection of brain lesion; 2. Use of Stealth neuronavigation.; Dr. Macario Jordan at [facility] S/P bronchoscopy 02/2022 History of cataract surgery R/L S/P carotid endarterectomy Left CEA with Bovine Patch Angioplasty (2019) History of cystoscopy History of colonoscopy History of tooth extraction Hx of angioplasty 1989 [facility] Family History Father , 86yo Lung cancer Myocardial infarction Hypertension Mother , 92yo Pacemaker Hypertension Sister H/O carotid endarterectomy Stroke following surgery; Hypertension Dyslipidemia Sister Dyslipidemia Hypertension Melanoma Sister Hypertension Denies family history of Ovarian cancer Prostate cancer Breast cancer Colorectal cancer Social History Smoking Status: Former smoker Tobacco Type: Cigarettes Age Started Using Tobacco: 13; Age Quit Using Tobacco: 38; packs per day: 2; Cigarettes Per Day: [id number]; Second Hand Exposure: No; Do You Dip or Chew Tobacco: No; Tobacco Cessation Education Requested by Patient: No Hx Alcohol Use: No Hx Substance Use: No Preferred Language: Brazilian Communication Ability: Effective Visual Impairment: No Limitations Hearing Ability: Use of Hearing Aid Hog Stomach Preparer Required: No Beliefs That Will Affect Care: None marital status: marital status details: Amrita Current Living Situation: Spouse current occupational status: retired How many Children do You have: 0 Other Information That Helps Us Care for You: No Feels Safe at Home: Yes Safety Concerns: Feels Safe At This Time Childhood Exposure to Second-Hand Smoke: Yes (father ) Diet: regular Diet Comment: attempts a healthy diet caffeine: Yes (3 cups daily ) during the past year weight has: remained stable Dental Care, Regularly: Yes Physical Activity Frequency: Daily Seatbelt Use: always Sunscreen Use: No Assistive Devices: None Physical Exam Physical Exam: Physical Exam: General: In no acute distress, stated age, chronically ill appearing but non- toxic appearing HEENT: Right sided facial droop noted, atraumatic, no scleral icterus, pupils around round, symmetrical, and reactive to light, moist mucus membranes, upper dentures are currently in place, trachea midline, no thyromegaly >Patient without signs of viral infection on inspection of the BL eye, oropharynx, and BL tympanic membranes Chest/Pulm: No respiratory distress, symmetrical chest expansion, clear breath sounds throughout Cardiac: RRR, no murmurs noted Abdomen: Negative for ascites and bruising, normoactive bowel sounds, soft, non-tender to palpation throughout Musculoskeletal: Symmetrical and without signs of acute trauma Extremities: Radial, dorsalis pedis, and posterior tibial pulses are intact and symmetrical, no edema noted in the BL LE's Skin: Warm, dry, no rashes , lesions, or scars noted Neuro: Alert and oriented to person, place, month, year, and president, CN II-XII tested with flaccidity of the entire right face including inability to wrinkle forehead or raise right eyebrow, patient with flattening of the right nasolabial fold and inability to raise right side of mouth when smiling, oth erwise no other acute findings , negative cerebellar and pronator drift in the BL UE's, no tremors noted Psych: No acute distress, calm and cooperative during the exam Results & Data Results & Data Vital Signs (Past 12 Hours) Vital Signs Temp Pulse Pulse Resp BP BP Pulse Ox 08/14/23 10:00 62 20 98 08/14/23 10:00 36.8 C 62 20 187/113 H 98 08/14/23 09:26 59 L 08/14/23 09:16 36.7 C 72 20 189/79 H 97 O2 Del Method 08/14/23 10:00 Room Air 08/14/23 10:00 Room Air 08/14/23 09:26 08/14/23 09:16 Room Air Laboratory Results Abnormal lab results 08/14/23 Range/Units 09:56 WBC 11.20 H (4.8-10.8) K/ul RBC 3.73 L (4.70-6.10) M/uL Hgb 13.1 L (14.0-18.0) g/dl Hct 38.6 L (42.0-52.0) % MCV 103.5 H (80.0-100.0) fL MCH 35.1 H (25.0-34.0) pg RDW Std Deviation 58.3 H (36.4-46.3) fL RDW Coeff of Nick 15.4 H (11.5-14.5) % Neut # (Auto) 8.66 H (1.40-6.50) K/uL [place] # (Auto) 0.83 H (0.11-0.59) K/uL Immature Gran # (Auto) 0.25 H (0.01-0.20) K/uL Creatinine 0.58 L (0.6-1.4) mg/dl BUN/Creatinine Ratio 36.2 H (10-20) ALT 68 H (7-52) U/L Alkaline Phosphatase 122 H (34-104) U/L Diagnostic Findings Abnormal lab results 08/14/23 Range/Units 09:56 WBC 11.20 H (4.8-10.8) K/ul RBC 3.73 L (4.70-6.10) M/uL Hgb 13.1 L (14.0-18.0) g/dl Hct 38.6 L (42.0-52.0) % MCV 103.5 H (80.0-100.0) fL MCH 35.1 H (25.0-34.0) pg RDW Std Deviation 58.3 H (36.4-46.3) fL RDW Coeff of Nick 15.4 H (11.5-14.5) % Neut # (Auto) 8.66 H (1.40-6.50) K/uL [place] # (Auto) 0.83 H (0.11-0.59) K/uL Immature Gran # (Auto) 0.25 H (0.01-0.20) K/uL Creatinine 0.58 L (0.6-1.4) mg/dl BUN/Creatinine Ratio 36.2 H (10-20) ALT 68 H (7-52) U/L Alkaline Phosphatase 122 H (34-104) U/L ECG Additional Comments: Sinus bradycardia with Premature supraventricular complexes Minimal voltage criteria for LVH, may be normal variant ( R in aVL ) Borderline ECG When compared with ECG of 04-JUL-2023 07:42, Premature supraventricular complexes are now Present Vent. rate has decreased BY 32 BPM T wave amplitude has increased in Anterior leads Code Status & VTE Plan Code Status full code VTE Prophylaxis Plan VTE Prophylaxis will be ordered: Yes Supervising Physician Co-Signing Physician Notes Patient seen and examined, chart reviewed, case discussed with Ronaldo Salcedo PA-C and I agree with the assessment and plan as above except as otherwise noted Labs and images reviewed 77-year-old male presents with right-sided facial weakness and hypertension which has progressed since 08/11/2023. History of glioblastoma s/p craniotomy. CThead with no acute findings, improving prior right cerebral edema. BP is improving on recheck, can treat to goal above 180 as symptoms have been present for more than 24 hours do not need to allow for permissive hypertension. 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 Has a rightfacial droop int he cheek/lip. Cannot elevate R cheek/lip on command. No dysarthria, aphasia, or vision change. Please and alert. MRI does not show acute or subacute infarct. Decreased vasogenic edema surrounding his resection cavity compared to prior.. Agree with steroids as above. Antivirals deferred. Seizure precautions. PG Care Time/CCT Total # of Minutes Spent Total Time Spent with Patient: Total time spent is greater than 50% in coordination of care (as documented) at patient's floor/unit and/or counseling patient: Coding [place] [address] INT INP/OBS CARE 3/75MIN Patient Type Established Medical Decision Making High Complexity Diagnoses Weakness on right side of face R29.810 Glioblastoma C71.9 UTI (urinary tract infection) N39.0 Partial seizure R56.9 Hypertension I10 Myocardial Infarction I21.9
[2023-08-14] MEDS ORDERED: GLUCOSE 40% GEL 15 GM TUBE PO PRN (11:48)
[2023-08-14] MEDS ORDERED: DEXTROSE 50% 50 ML SYRINGE IV PRN (11:48)
[2023-08-14] MEDS ORDERED: GLUCOSE 10 TAB/TUBE PO PRN (11:48)
[2023-08-14] MEDS ORDERED: CARBOHYDRATES FOR HYPOGLYCEMIA PO PRN (11:48)
[2023-08-14] MEDS ORDERED: GLUCAGON FOR INJ 1 MG VIAL SQ PRN (11:48)
[2023-08-14] MEDS ORDERED: DOCUSATE SODIUM 100 MG CAP PO PRN (12:51)
[2023-08-14 13:11] LABS: Appearance Urine Clear (Clear); Bilirubin Urine Negative (Negative); Blood Urine Negative (Negative); Color Urine Yellow; Glucose Urine UA Negative (Negative); Ketones Urine Negative (Negative); Leukocyte Esterase Urine Negative (Negative); Nitrite Urine Negative (Negative); Protein Urine Negative (Negative); Specific Gravity Urine 1.012 (1.000-1.030); Urobilinogen Urine Negative (Negative); pH Urine 7.5 (4.5-7.5)
[2023-08-14] MEDS ORDERED: NITROGLYCERIN 2% OINTMENT 30GM TUBE EXT SCH ×2 (13:30)
--- NOTE | 2023-08-14 15:10 | Electrocardiogram Report ---
Test Reason : Blood Pressure : / mmHG Vent. Rate : 059 BPM Atrial Rate : 059 BPM P-R Int : 154 ms QRS Dur : 086 ms QT Int : 416 ms P-R-T Axes : 089 002 026 degrees QTc Int : 411 ms Sinus bradycardia with Premature supraventricular complexes Minimal voltage criteria for LVH, may be normal variant Borderline ECG When compared with ECG of 04-JUL-2023 07:42, Premature supraventricular complexes are now Present Vent. rate has decreased BY 32 BPM T wave amplitude has increased in Anterior leads Confirmed by Jay Rhodes ([id number]) on 08/14/2023 3:10:21 PM Referred By: Confirmed By:Justin Rhodes
[2023-08-14] MEDS: DEXAMETHASONE SOD INJ 4 MG/ML VIAL IV STA (16:27)
[2023-08-14] MEDS: ASPIRIN 81 MG CHEW PO STA (16:27)
[2023-08-14] MEDS: GADOBUTROL 65ML VIAL IV ONE (17:06)
--- NOTE | 2023-08-14 18:26 | Magnetic Resonance Report ---
MR brain wo/w con HISTORY: 77 years-old Male right facial droop, known brain cancer acute stroke like symptoms COMPARISON: Head CT same day at 10:00 AM, brain MRI 06/05/2023 TECHNIQUE: Multiplanar multisequence MRI of the brain was obtained with and without IV contrast. FINDINGS: Motion degraded exam. There is again noted a right posterior craniotomy with underlying resection cavity within the right p osterior temporal lobe. No restricted diffusion identified to suggest acute or subacute infarct. Ther e is resolution of the previously noted 2 mm leftward midline shift. There is decreased mass effect i nvolving the right lateral ventricle from the prior MRI. The paranasal sinuses and mastoid air cells are clear. The orbits are unremarkable. Loss of the normal flow-void within the right transverse and sigmoid sinus is similar to prior, possibly representing thrombus or slow flow. This remains unchange d. There is improvement of the previously described nodular and patchy enhancement surrounding the right posterior temporal lobe resection cavity which is again suggestive of recurrent/residual tumor and i s now less conspicuous on today's study overall measuring approximately 8.1 x 5.6 cm in AP and transv erse dimensions, previously 9.2 x 5.4 cm . Dominant enhancing nodular focus anterior to the resection cavity measures 2.9 x 1.7 cm on image 54 series 12, previously 2.9 x 1.6 cm . Extra-axial focus of e nhancement adjacent to the right frontal lobe on image 102 series 13 measures 12 mm transversely, pre viously 10 mm. No new extra-axial fluid collections. Persistent vasogenic edema surrounding the resec tion cavity within the right temporal/parietal lobes which has improved with overall decreased surrou nding mass effect. Improvement of the previously described mild diffuse pachymeningeal enhancement. IMPRESSION: 1. Motion degraded exam without acute or subacute infarct identified. 2. Decreased vasogenic edema surrounding the resection cavity with decreased mass effect and resoluti on of the previously noted midline shift described on the June 05, 2023 exam. 3. Decreased size and conspicuity of the large area of patchy and nodular enhancement in the right po sterior temporal lobe resection cavity suggestive of residual disease. 4. Stable appearance of the slow venous flow versus thrombosis within the right transverse and sigmoi d sinuses. 5. Additional findings as above. ACT 112: Negative or not required by law. The above report was generated using voice recognition software. It may contain grammatical, syntax o r spelling errors. Electronically signed by: Dev Orozco M.D. 08/14/2023 6:23 PM
[2023-08-14] MEDS: ATORVASTATIN 40 MG TAB PO SCH (20:57)
[2023-08-14] MEDS: LACOSAMIDE 50 MG TABLET PO SCH (21:55)
[2023-08-15 06:42] LABS: Basophils # (auto) 0.02 K/uL (0.00-0.20); Basophils % (auto) 0.2 %; Eosinophils # (auto) 0.01 K/uL (0.00-0.50); Eosinophils % (auto) 0.1 %; Hematocrit (blood only) 41.4 % (42.0-52.0); Immature Granulocytes # (auto) 0.17 K/uL (0.01-0.20); Immature Granulocytes % (auto) 1.7 %; Lymphocytes # (auto) 1.44 K/uL (1.20-3.40); Lymphocytes % (auto) 14.4 %; Mean Corpuscular Hemoglobin 34.8 pg (25.0-34.0); Mean Corpuscular Hgb Conc 33.8 g/dL (32.0-36.0); Mean Platelet Volume 9.3 fL (9.4-12.4); Monocytes # (auto) 0.53 K/uL (0.11-0.59); Monocytes % (auto) 5.3 %; Neutrophils # (auto) 7.83 K/uL (1.40-6.50); Neutrophils % (auto) 78.3 %; Nucleated RBC # (auto) 0.02 K/uL (0.00-0.12); Nucleated RBC % (auto) 0.2 %; Platelet Count 191 K/uL (130-400); RDW Coefficient of Variation 15.4 % (11.5-14.5); RDW Standard Deviation 57.5 fL (36.4-46.3); Red Blood Count 4.02 M/uL (4.70-6.10)
[2023-08-15 07:12] LABS: Prothrombin Time 10.9 Seconds (9.0-12.0)
[2023-08-15 07:16] LABS: Albumin Globulin Ratio 1.1 (0.9-2); Albumin Level 3.5 gm/dl (3.4-5.0); BUN Creatinine Ratio 37.5 (10-20); Bilirubin,Total 0.9 mg/dl (0.2-1.0); Chol HDL Ratio 2.1 (0-5); Creatinine Clr Calc Pharmacy 97.1 ml/min; Est GFR (African American) 108.7 ml/min; Est GFR (Non-African American) 93.8 ml/min; Globulin 3.1 gm/dl (2.5-4.0); Magnesium 2.1 mg/dl (1.7-2.4); Potassium 4.8 mmol/L (3.5-5.1); Total Protein 6.6 gm/dl (6.0-8.3)
[2023-08-15 07:30] LABS: Estimated Average Glucose 160 mg/dl; Hemoglobin A1C 7.2 % (4.5-5.6)
--- NOTE | 2023-08-15 07:41 | Hospitalist Progress Note ---
Date of Service August 15, 2023 Assessment & Plan (1) Weakness on right side of face: Plan: -Previous resection of the glioblastoma, currently receiving carboplatin and Avastin [facility] with last course on 08/09/23 - presented to the ED this am due to progression of right sided facial weakness which initially started on 08/11/23 -CT of the head/brain on arrival was read as negative for acute findings with improvement in the right cerebral edema and his known lesion - MRI of the brain w/wo con -continues on dexamethasone -Aspirin home 81 mg prior to arrival (2) UTI (urinary tract infection): Plan: -Diagnosed on UA obtain 08/08/23 culture results not available -Urine was not sent for culture at that time -Patient states symptoms have resolved since starting Levaquin -Continue BID Levaquin with last dose on 08/16/23 -Will obtain UA and culture (3) Partial seizure: Plan: -Denies recent seizures -No seizure like activity on exam -Did have am dose of lacosamide prior to arrival -Continue BID Lacosamide for now unless he fails his dysphagia screen, then will convert to IV antiepileptic (4) Hypertension: Plan: -Currently hypertensive with systolics in the low 200's -will need bp control (5) Myocardial Infarction: Plan: -No recent chest pain -Continue aspirin and statin Plan The patient was discussed with Dr. López at the time of the admission Admission and Anticipated Discharge Date Admission Date: August 14, 2023 Results & Data Results & Data Vital Signs (Past 12 Hours) Vital Signs Temp Pulse Pulse Resp BP Pulse Ox O2 Del Method 08/15/23 06:35 140/100 08/15/23 05:04 199/94 H 08/15/23 03:10 97.5 F L 70 22 194/94 H 95 Room Air 08/15/23 00:14 79 08/14/23 23:11 97.3 F L 64 20 141/78 H 93 Room Air PG Care Time/CCT Total # of Minutes Spent Total Time Spent with Patient: Total time spent is greater than 50% in coordination of care (as documented) at patient's floor/unit and/or counseling patient: Coding Diagnoses Weakness on right side of face R29.810 UTI (urinary tract infection) N39.0 Partial seizure R56.9 Hypertension I10 Myocardial Infarction I21.9
[2023-08-15] MEDS: FINASTERIDE 5 MG TAB PO SCH (08:45)
[2023-08-15] MEDS: levoFLOXacin 500 MG TAB PO SCH (08:45)
[2023-08-15] MEDS: ASPIRIN 81 MG ECTAB PO SCH (08:45)
[2023-08-15] MEDS: DEXAMETHASONE IV SCH (08:45)
[2023-08-15] MEDS: FAMOTIDINE 20 MG TAB PO SCH (08:45)
[2023-08-15] MEDS: OLANZAPINE 2.5 MG TAB PO SCH (08:45)
[2023-08-15] MEDS: hydrALAZINE HCL 20 MG/ML VIAL IV PRN (08:46)
[2023-08-15] MEDS ORDERED: DEXAMETHASONE SOD INJ 4 MG/ML VIAL IV SCH (09:00)
[2023-08-15] MEDS: lisinopril 10 MG TAB PO SCH (09:34)
[2023-08-15] MEDS: METOPROLOL SUCC 50MG EXT REL TAB PO SCH (09:34)
[2023-08-15] MEDS: LABETALOL HCL IV 5 MG/ML 20ML IV STA (09:35)
[2023-08-15] MEDS: valACYclovir HCL 500 MG TABLET PO ONE (15:56)
--- NOTE | 2023-08-15 19:44 | Discharge Summary ---
Discharge Summary Date of Service August 15, 2023 Notes For Next Care Provider pt had large desire to leave, suspect Beth[place] palsy starting 3 days after chemo, pt pleased that some improvement on imaging of brain I informed pt and that if this is [place] palsy it may not improve and to inform Dr Shore as it may impact his next chemo therapy treament Medication Changes From Visit discharged on 5 days of valtrex 500mg bid Admission HPI Per Admitting Provider Jose is a 77 year old male with a PMH significant for glioblastoma grade 4 with a history of chemoradiation, surgical resection 12/2022, and currently on carboplatin, Avastin, and dexamethasone, history of seizures with discontinuation of Keppra due to induction of alcohol craving now on lacosamide, HTN, hyperlipidemia, BPH, CAD, GERD who presented to the [facility] ED on 08/14/23 with complaints of right sided facial droop since 08/11/23. He was noted to be hypertensive at 189/79 and bradycardic at 59 but otherwise stable. Labs were significant for a leukocytosis of 11 with neutrophil predominance of 8, glucose of 70, ALT of 68. Chest xray was read as negative for acute findings. CT of the head/brain wo con was read as "1. No acute intracranial hemorrhage. 2. Slight decrease in size of the 2.6 x 1.4 cm hypodense lesion within the operative bed since prior CT. This favors recurrent/residual tumor. 3. Continued improvement in right cerebral edema since prior head CT.". Prior to admission the patient was given 4 mg. We were asked to admit the patient for ongoing evaluation of his neurologic symptoms. At the time of the exam the patient was sitting in bed in no acute distress with his bedside, history was obtained from both. The patient states that he started noticing some right sided facial droop on 08/11/23, but it was reportedly mild. He was unsure if the facial droop was due to an issue with his dentures. He notes that over the past 48 hours he has had difficulty drinking liquids as they would run out the right side of his mouth. He denies having difficulty taking his medications and/or eating solids. His states that when she woke him this am to give him medications he had increased right facial droop leading to ED evaluation. He did have all his am medications including his 2mg PO dexamethasone, currently course of Levaquin for UTI diagnosed on 08/08/23, and his am antihypertensives. The patient denies recent headache, changes in vision, hearing, taste, smell, new paresthesias/weakness, insect bites/rashes, chest pain, SOB, and pain, nausea, vomiting, diarrhea, dysuria, hematuria, melena, LE swelling, and recent trauma. He notes that since his last admission to [facility] in April for recurrent partial seizures he has had chronic weakness and paresthesias in the LUE, these are unchanged compared to baseline. His last course of chemotherapy was on 08/09/23 and was without complication. He is a full code and his would make medical decisions for him if he cannot make them himself. Patient is currently on a 7 day course of Levaquin due to UTI diagnosed on 08/08/23; unfortunately it does not appear that his urine sample from 08/07 was ever sent for culture. Please refer to Dr. López's attestation for any changes to the treatment plan. Principal Dx & Hospital Course #1 = Principal Diagnosis (1) Weakness on right side of face: -Previous resection of the glioblastoma, currently receiving carboplatin and [facility]astin [facility] with last course on 08/09/23 - presented to the ED 08/14/23 due to progression of right sided facial weakness which initially started on 08/11/23 has hallmarks of [place] Palsy treated with Valcyclovir -CT of the head/brain on arrival was read as negative for acute findings with improvement in the right cerebral edema and his known lesion - MRI of the brain w/wo con Decreased vasogenic edema surrounding the resection cavity with decreased mass effect and resolution of the previously noted midline shift described on the June 05, 2023 exam. Decreased size and conspicuity of the large area of patchy and nodular enhancement in the right posterior temporal lobe resection cavity suggestive of residual disease. Stable appearance of the slow venous flow versus thrombosis within the right transverse and sigmoid sinuses. -received dexamethasone here as also was continuation of post chemo therapy Dexamethasone -Aspirin home 81 mg prior to arrival (2) UTI (urinary tract infection): -Diagnosed on UA obtain 08/08/23 culture results not available now almost a week therapy -Urine was not sent for culture at that time -Patient states symptoms have resolved since starting Levaquin - (3) Partial seizure: -Denies recent seizures -No seizure like activity on exam -Did have am dose of lacosamide prior to arrival -Continue BID Lacosamide for now unless he fails his dysphagia screen, then will convert to IV antiepileptic (4) Myocardial Infarction: -No recent chest pain -Continue aspirin and statin Plan Patient is a significant diagnosis with significant mortality wish to go home at all cost understanding that this is not the perfect situation but he is willing to take valacyclovir. There is also an outside chance this could be a change from his craniotomy or intracranial malignancy however the MRI is reassuring that even the slow flow versus thrombosis of the right transverse and sigmoid sinuses do not appear to have changed. Updated Medication List Medication Instructions Recorded Confirmed Type multivitamin (Multiple Vitamins 2 tab PO QAM 02/02/22 08/14/23 History tablet) acetaminophen 500 mg tablet 500 - 1,000 mg PO UD PRN Pain 02/11/22 08/14/23 History (Tylenol Extra Strength) [id number]-[id number] 450 unit 450 unit PO BID PRN Gi Upset 02/11/22 08/14/23 History disintegrating tablet (Beano) methylcellulose (laxative) 2 g PO QAM 02/11/22 08/14/23 History (Citrucel Sugar Free oral powder) ondansetron 8 mg disintegrating 8 mg PO Q12H PRN TAKE PRIOR TO 02/11/22 08/14/23 History tablet CHEMO MED aspirin 81 mg tablet,delayed 81 mg PO QAM #30 tabs 02/17/22 08/14/23 Rx release cholecalciferol (vitamin D3) 125 125 mcg PO QAM 02/22/23 08/14/23 History mcg (5,000 unit) tablet (Vitamin D3) famotidine 20 mg tablet 20 mg PO QAM 02/22/23 08/14/23 History lisinopril 10 mg tablet 10 mg PO QAM #90 tabs 02/27/23 08/14/23 Rx nitroglycerin 0.4 mg sublingual 0.4 mg sublingual Q5M PRN Chest 04/07/23 08/14/23 Rx tablet Pain #25 tabs lacosamide 100 mg tablet (Vimpat) 100 mg PO BID #60 tabs 04/13/23 08/14/23 Rx atorvastatin 40 mg tablet 40 mg PO HS #90 tabs 04/27/23 08/14/23 Rx dexamethasone 2 mg tablet 2 mg PO QAM 07/04/23 08/14/23 History docusate sodium 100 mg tablet 100 mg PO DAILY PRN Constipation 07/19/23 08/14/23 History dutasteride 0.5 mg capsule 0.5 mg PO QAM #90 caps 07/27/23 08/14/23 Rx (Avodart) olanzapine 2.5 mg tablet 2.5 mg PO DAILY 07/27/23 08/14/23 History metoprolol succinate 50 mg 50 mg PO QAM #90 tabs 08/07/23 08/14/23 Rx tablet,extended release 24 hr prochlorperazine maleate 10 mg 10 mg PO Q6H PRN Other 08/14/23 08/14/23 History tablet valacyclovir 500 mg tablet 500 mg PO BID #9 tabs 08/15/23 Rx (Valtrex) Hospital Stay Data Consultations 08/14/23 11:15 ED Decision to Admit Stat Diagnostic Imagining Performed 08/14/23 09:36 CT head/brain wo con Stat 08/14/23 11:46 MRI Brain [MR brain wo/w con] Stat Pending Results Patient Have Any Pending Studies at Discharge: No Discharge Instructions Given to Patient (Per Discharging Provider) please take your antiviral medicine twice a day follow up with Dr Shore to discuss your upcomming chemotherapy Total Time Total Time Spent Total Time Spent (In Minutes): It required greater than 30 minutes to prepare this patient for discharge. Coding Level of Care Code 49753 INP/OBS DISCH >30 MIN Diagnoses Weakness on right side of face R29.810 UTI (urinary tract infection) N39.0 Partial seizure R56.9 Myocardial Infarction I21.9
== END 2023-08-15 18:32 | disposition home or self-care (01) | DRG 73 ==
LOC: ED 09:14 → SUATTDRO 11:21 → 2S 11:21

== ENCOUNTER 2023-10-13 11:26 | Inpatient (IN) ==
--- NOTE | 2023-10-13 12:17 | ED Triage Note ---
Date of Service October 13, 2023 Provider in Triage Author: Loyda Reid History of Present Illness This patient was briefly evaluated while in triage. An abbreviated physical exam was performed. This patient is a 77-year-old Male who presents to the ED for evaluation of dizziness, difficulty standing. He reports this has been going on for the last few days. He states yesterday morning he could not stand, and almost fell down. Patient had CT scan done last night with full workup and was discharged home with a negative workup. He was informed to return if his symptoms worsened. He currently is being treated for glioblastoma, with last chemo 1 week ago Monday. 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 Alert and oriented x 3 Initial orders for labs and / or imaging were placed and patient was placed in the waiting area until a bed is available. Please see further documentation for the full ED course.
[2023-10-13] MEDS: MECLIZINE HCL 25 MG TAB PO STA (12:33)
[2023-10-13 12:55] LABS: Basophils # (auto) 0.01 K/uL (0.00-0.20); Basophils % (auto) 0.1 %; Eosinophils # (auto) 0.01 K/uL (0.00-0.50); Eosinophils % (auto) 0.1 %; Hematocrit (blood only) 36.3 % (42.0-52.0); Hemoglobin 12.2 g/dl (14.0-18.0); Immature Granulocytes # (auto) 0.09 K/uL (0.01-0.20); Immature Granulocytes % (auto) 0.9 %; Lymphocytes # (auto) 1.47 K/uL (1.20-3.40); Lymphocytes % (auto) 15.4 %; Mean Corpuscular Hgb Conc 33.6 g/dL (32.0-36.0); Mean Platelet Volume 9.8 fL (9.4-12.4); Monocytes # (auto) 0.86 K/uL (0.11-0.59); Neutrophils # (auto) 7.11 K/uL (1.40-6.50); Neutrophils % (auto) 74.5 %; Nucleated RBC # (auto) 0.03 K/uL (0.00-0.12); Nucleated RBC % (auto) 0.3 %; Platelet Count 122 K/uL (130-400); RDW Coefficient of Variation 16.4 % (11.5-14.5); RDW Standard Deviation 61.8 fL (36.4-46.3); Red Blood Count 3.49 M/uL (4.70-6.10); White Blood Count 9.55 K/ul (4.8-10.8)
[2023-10-13 13:13] LABS: Alanine Aminotransferase 54 U/L (7-52); Albumin Globulin Ratio 1.5 (0.9-2); Albumin Level 3.8 gm/dl (3.4-5.0); Alkaline Phosphatase 121 U/L (34-104); Anion Gap 8 (3-11); BUN Creatinine Ratio 30.7 (10-20); Bilirubin,Total 1.2 mg/dl (0.2-1.0); Blood Urea Nitrogen 23 mg/dl (6-23); Calcium 9.3 mg/dl (8.6-10.3); Carbon Dioxide 25 mmol/L (21-32); Chloride 106 mmol/L (98-107); Est GFR (African American) 101.8 ml/min; Est GFR (Non-African American) 87.9 ml/min; Globulin 2.6 gm/dl (2.5-4.0); Glucose 89 mg/dl (70-99(Fasting)); Sodium 139 mmol/L (136-145); Total Protein 6.4 gm/dl (6.0-8.3)
[2023-10-13 13:18] LABS: Troponin I High Sensitivity 19.4 pg/ml (0-20)
--- NOTE | 2023-10-13 14:09 | Emergency Department Note ---
Impression & Plan Dizziness, Brain mass, Hypokalemia, Ambulatory dysfunction ED Provider Note NAME: NELSON LOU Jr AGE: 77 SEX: M : 1945 ARRIVES VIA: Walk-In INFORMANT: Patient ED PROVIDER(S): Kirby Umaña DO CHIEF COMPLAINT: Dizzy HPI: Patient is a 77-year-old male with a past medical history of Shipman's palsy affecting the right side, respiratory failure, brain mass receiving chemotherapy with his last course October 03 who presents the ER for dizziness which has been present for the past 3 to 4 days. It is worse generally in the morning and with position changes. Patient has been unable to walk at home. He denies any headache or change in vision. No chest pain or shortness of breath. No belly pain. No dysuria urgency or frequency. No other exacerbating or remitting factors. ADDITIONAL HISTORY OBTAINED: Discussed with family at bedside including who notes that he cannot walk and took 2 of them just to get him out the door today. Chronic Medical/Social Conditions Affecting Care: Per HPI PAST MEDICAL HISTORY:See Below PAST SURGICAL HISTORY:See Below FAMILY HISTORY:See Below SOCIAL HISTORY:See Below HOME MEDICATIONS:See Below ALLERGIES:See Below VITALS:See Below PHYSICAL EXAMINATION: GENERAL: Sitting up in bed, alert, well appearing, well nourished, no distress, non-toxic EYE EXAM: normal conjunctiva. PERRL and EOM's intact. OROPHARYNX: no exudate, no erythema, lips, buccal mucosa, and tongue normal and mucous membranes are moist NECK: supple, no nuchal rigidity, no adenopathy, non-tender LUNGS: Clear to auscultation. Normal chest wall mechanics HEART: no murmurs, S1 normal and S2 normal ABDOMEN: abdomen soft, non-tender, normo-active bowel sounds, no masses, no rebound or guarding. BACK: Back is symmetrical on inspection and there is no deformity, no midline tenderness, no CVA tenderness. SKIN: no rashes and no bruising UPPER EXTREMITIES: upper extremities are grossly normal. LOWER EXTREMITIES: No pitting edema. NEURO EXAM: Normal sensorium, cranial nerves II through XII are grossly intact with the exception of unable to close the right eye lead completely and right facial droop from Shipman's earlier this year, normal speech, no weakness of arms, no weakness of legs. No drift/blood difficulty using right arm due to old injury. Finger to nose intact. Gross sensation intact. MEDICAL DECISION MAKING: Patient is a 77-year-old male who presents ER for the above-stated complaint. IV was established blood work is obtained. Labs show no significant leukocytosis. Mild anemia at 12. Platelets are slightly low at 122. BMP with mild hypokalemia 3.0. Mag was mildly low at 1.4. Troponin was negative. UA was unremarkable. Patient was completely neurologically intact with the exception of old deficits on the face. Imaging was reviewed from earlier yesterday. No acute findings. Discussed with family. He is unable to manage at home. Discussed with the hospitalist for further evaluation management treatment and likely MRI. Consults/Care Managements Discussions: Per [facility] Triage Nursing notes reviewed. Limited review of prior medical records performed Vital Signs: reviewed and remarkable for no significant abnormalities Differential diagnosis: Differential diagnosis includes etiologies such as benign positional vertigo, dehydration, hypovolemia, anemia, tumor, infection, hypoglycemia, electrolyte abnormalities, cardiac sources, intracerebral event, toxicologic, neurological, as well as others were entertained. ER treatment provided: See below Diagnostics interpreted by me include EKG and cardiac monitoring as listed below: -Cardiac Monitoring: An order was placed for continuous cardiac monitoring. The monitor shows a rate of 80 with sinus rhythm. -ECG: Sinus rhythm rate 79 Left axis No PVCs QTc 438 -Laboratory studies:Interpreted by me as stated above in [facility] and shown below. Imaging studies: Xrays: As interpreted by me:none CTs show: CT reviewed from yesterday which were unremarkable Procedures:none Critical Care: None Past Med/Surg History Problem List (Updated 10/13/23 @ 19:54 by Kirby Umaña DO) Ambulatory dysfunction (Acute) Hypokalemia (Acute) Dizziness (Acute) Light headedness (Acute) Shipman's palsy Weakness on right side of face (Acute) Glioblastoma (Chronic) Port-A-Cath in place Port-A-Cath in place Insertion of Right Subclavian Access Port Allergic reaction to drug (Acute) Rash (Acute) New onset seizure (Acute) Hypomagnesemia Hypophosphatemia Hyperkalemia (Acute) Acute renal failure (Acute) Hyponatremia (Acute) Splenic infarction Pneumonitis hx Pneumonia (Acute) Acute hypoxemic respiratory failure (Acute) History of craniotomy 01/04/22 Hyponatremia Leukocytosis (Acute) Elevated troponin I level (Acute) Brain mass (Acute) Carotid stenosis, left Hypercholesteremia (Chronic) Anemia hx Hyperlipidemia Medical History Glioblastoma Weakness of left arm "since having 2nd brain sx in 12/2022" Seizure hx-most recent 04/25/23, brought to [facility]>no reoccurences since starting medication; f/u [place] neuro Anemia hx CAD (coronary artery disease) inferior wall OR 1989 s/p PTCA of the CX artery Diverticulosis Hypertension Prostate nodule Post-void dribbling Atherosclerotic heart disease of [place] coronary artery without angina pectoris History of COVID-19 03/2020- tested d/t testing positive, patient was asymptomatic BPH (benign prostatic hyperplasia) hx Hyperlipidemia Carotid stenosis, left s/p Left CEA with Bovine Patch Angioplasty (2019) Myocardial Infarction 1989 GERD (gastroesophageal reflux disease) Surgical History Port-A-Cath in place Insertion of Right Subclavian Access Port History of anesthesia complications "During prior anesthetic on 01/22 patient was noted to have labile pressures during induction with propofol, first with extreme hypertension (systolic up to 196) and then hypotension requiring NE gtt" per 12/2022 [facility] anesthesia records Hx of transurethral resection of prostate 2017 History of craniotomy 01/2022, [facility], sx for glioblastoma 12/2022, [facility], 1. Redo Right Temporal craniotomy for resection of brain lesion; 2. Use of Stealth neuronavigation.; Dr. Macario Jordan at [facility] S/P bronchoscopy 02/2022 History of cataract surgery R/L S/P carotid endarterectomy Left CEA with Bovine Patch Angioplasty (2019) History of cystoscopy History of colonoscopy History of tooth extraction Hx of angioplasty 1989 [facility] Family History Father , 86yo Lung cancer Myocardial infarction Hypertension Mother , 92yo Pacemaker Hypertension Sister H/O carotid endarterectomy Stroke following surgery; Hypertension Dyslipidemia Sister Dyslipidemia Hypertension Melanoma Sister Hypertension Denies family history of Ovarian cancer Prostate cancer Breast cancer Colorectal cancer Social History Smoking Status: Former smoker Tobacco Type: Cigarettes Age Started Using Tobacco: 13; Age Quit Using Tobacco: 38; packs per day: 2; Cigarettes Per Day: [id number]; Second Hand Exposure: No; Do You Dip or Chew Tobacco: No; Hx Alcohol Use: No Hx Substance Use: No Preferred Language: Romansh Communication Ability: Effective Visual Impairment: No Limitations Hearing Ability: Use of Hearing Aid Roll Forming Supervisor Required: No Beliefs That Will Affect Care: None marital status: marital status details: Amrita Current Living Situation: Spouse current occupational status: retired How many Children do You have: 0 Feels Safe at Home: Yes Childhood Exposure to Second-Hand Smoke: Yes (father ) Diet: regular Diet Comment: attempts a healthy diet caffeine: Yes (3 cups daily ) during the past year weight has: remained stable Dental Care, Regularly: Yes Physical Activity Frequency: Daily Seatbelt Use: always Sunscreen Use: No Assistive Devices: Cane Allergies Allergies Allergy/AdvReac Type Severity Reaction Status Date / Time No Known Allergies Allergy Unknown Verified 10/13/23 15:07 Home Meds Home Medications Medication Instructions Recorded Confirmed acetaminophen 500 mg tablet 500 - 1,000 mg PO UD PRN Pain 02/11/22 10/13/23 (Tylenol Extra Strength) methylcellulose (laxative) 2 g PO QAM 02/11/22 10/13/23 (Citrucel Sugar Free oral powder) ondansetron 8 mg disintegrating 8 mg PO Q12H PRN TAKE PRIOR TO 02/11/22 10/13/23 tablet CHEMO MED cholecalciferol (vitamin D3) 125 125 mcg PO QAM 02/22/23 10/13/23 mcg (5,000 unit) tablet (Vitamin D3) famotidine 20 mg tablet 20 mg PO QAM 02/22/23 10/13/23 dexamethasone 2 mg tablet 2 mg PO QAM 07/04/23 10/13/23 docusate sodium 100 mg tablet 100 mg PO DAILY PRN Constipation 07/19/23 10/13/23 olanzapine 2.5 mg tablet 2.5 mg PO DAILY 07/27/23 10/13/23 prochlorperazine maleate 10 mg 10 mg PO Q6H PRN Other 08/14/23 10/13/23 tablet wfjry-t-[id number] 450 unit 450 unit PO DAILY 10/09/23 10/13/23 disintegrating tablet (Beano) amlodipine 10 mg tablet See Rx Instructions .Route .COMPLEX 10/13/23 10/13/23 amlodipine 5 mg tablet See Rx Instructions .Route .COMPLEX 10/13/23 10/13/23 Previous Rx's Medication Instructions Recorded aspirin 81 mg tablet,delayed 81 mg PO QAM #30 tabs 02/17/22 release lisinopril 10 mg tablet 10 mg PO QAM #90 tabs 02/27/23 nitroglycerin 0.4 mg sublingual 0.4 mg sublingual Q5M PRN Chest 04/07/23 tablet Pain #25 tabs atorvastatin 40 mg tablet 40 mg PO HS #90 tabs 04/27/23 dutasteride 0.5 mg capsule 0.5 mg PO QAM #90 caps 07/27/23 (Avodart) metoprolol succinate 50 mg 50 mg PO QAM #90 tabs 08/07/23 tablet,extended release 24 hr lacosamide 100 mg tablet (Vimpat) 100 mg PO BID #180 tabs 10/09/23 Results & Data (ED) Vital Signs Vital Signs - 24 hr 10/13/23 12:14 10/13/23 13:33 Temperature 37.0 C Temperature Source Temporal Artery Scan Pulse Rate 76 63 Respiratory Rate 18 Respiratory Effort / Characteristics Non-Labored Spontaneous Respiratory Depth Normal Blood Pressure 123/75 Blood Pressure Mean 91 Blood Pressure Position Sitting Pulse Oximetry 99 Oxygen Delivery Method Room Air Sepsis Recent Fever Within 48 Hours No Sepsis New/Unexplained Change in Mental Status N/A Sepsis Action Taken by Nursing No Action Required Laboratory Data 10/13/23 12:33 10/13/23 14:20 Lab Results 10/13/23 10/13/23 Range/Units 12:33 14:20 WBC 9.55 (4.8-10.8) K/ul RBC 3.49 L (4.70-6.10) M/uL Hgb 12.2 L (14.0-18.0) g/dl Hct 36.3 L (42.0-52.0) % MCV 104.0 H (80.0-100.0) fL MCH 35.0 H (25.0-34.0) pg MCHC 33.6 (32.0-36.0) g/dL RDW Std Deviation 61.8 H (36.4-46.3) fL RDW Coeff of Nick 16.4 H (11.5-14.5) % Plt Count 122 L (130-400) K/uL MPV 9.8 (9.4-12.4) fL Immature Gran % (Auto) 0.9 % Neut % (Auto) 74.5 % Lymph % (Auto) 15.4 % Shannon % (Auto) 9.0 % Eos % (Auto) 0.1 % Baso % (Auto) 0.1 % Neut # (Auto) 7.11 H (1.40-6.50) K/uL Lymph # (Auto) 1.47 (1.20-3.40) K/uL Shannon # (Auto) 0.86 H (0.11-0.59) K/uL Eos # (Auto) 0.01 (0.00-0.50) K/uL Baso # (Auto) 0.01 (0.00-0.20) K/uL Immature Gran # (Auto) 0.09 (0.01-0.20) K/uL Absolute Nucleated RBC 0.03 (0.00-0.12) K/uL Nucleated RBC % (auto) 0.3 % Sodium 139 (136-145) mmol/L Potassium TNP 3.0 L Chloride 106 (98-107) mmol/L Carbon Dioxide 25 (21-32) mmol/L Anion Gap 8 (3-11) BUN 23 (6-23) mg/dl Creatinine 0.75 (0.6-1.4) mg/dl Est Cr Clr Drug Dosing Not Reportable Est GFR ( Amer) 101.8 ml/min Est GFR (Non-Af Amer) 87.9 ml/min BUN/Creatinine Ratio 30.7 H (10-20) Glucose 89 (70-99(Fasting)) mg/dl Calcium 9.3 (8.6-10.3) mg/dl Magnesium 1.4 L (1.7-2.4) mg/dl Total Bilirubin 1.2 H (0.2-1.0) mg/dl AST TNP 36 ALT 54 H (7-52) U/L Alkaline Phosphatase 121 H (34-104) U/L Troponin I High Sens 19.4 D (0-20) pg/ml Total Protein 6.4 (6.0-8.3) gm/dl Albumin 3.8 (3.4-5.0) gm/dl Globulin 2.6 (2.5-4.0) gm/dl Albumin/Globulin Ratio 1.5 (0.9-2) Administered Medications Discontinued Medications Sodium Chloride (Nss) 500 mls @ 999 mls/hr IV .Q31M ONE Stop: 10/13/23 14:39 Last Infusion: 10/13/23 15:07 Dose: Infused Documented By: Admin: 10/13/23 14:16 Dose: 999 mls/hr Documented By: KATE Meclizine HCl (Meclizine Hcl 25 Mg Tab) 25 mg PO NOW STA Stop: 10/13/23 12:18 Last Admin: 10/13/23 12:33 Dose: 25 mg Documented By: JOSETTE Discharge Plan Visit Data Chief Complaint: Dizziness Stated Complaint: DIZZINESS, CANCER PT ED Provider: Kirby Umaña Discharge Problem: Dizziness, Brain mass, Hypokalemia, Ambulatory dysfunction Discharge Instructions Interventions: ED Discharge Assessment Last Done: 10/13/23 15:28
[2023-10-13] MEDS: SODIUM CHLORIDE 0.9% 500 ML IV ONE (14:16)
--- NOTE | 2023-10-13 14:20 | History & Physical Report ---
Date of Service October 13, 2023 Assessment & Plan (1) Light headedness: Plan: Admit to med/tele Currently stable nontoxic-appearing, asymptomatic at rest Presented back to the ED today on 10/13/2023 for the second time in 24 hours for ongoing dizziness/lightheadedness while changing positions causing ambulatory dysfunction and approximately 5 falls over the past 2 weeks Patient had a unremarkable workup on 10/12/[address] of the head and brain without contrast, chest x-ray, CBC, CMP, and troponin Patient is asymptomatic at rest, changing position of his head does not reproduce symptoms, symptoms only occur with going from lying to sitting, or sit ting to standing Patient was started on amlodipine approximately 1 month ago, suspect he is developing orthostatic hypotension as a result Will hold off on MRI of the brain at this time as he does not have new focal neuro defects since his admission for Shipman's palsy in August of this year where he underwent MRI of the brain without contrast Will hold amlodipine and lisinopril, can continue with metoprolol for now as he has been without bradycardia Fall precautions/aspiration precautions Will order daily orthostatic vitals PT/OT consults as patient may need rehab at the time of discharge Bilateral SCDs for DVT prophylaxis Heart healthy diet AM CBC, CMP, mag, PT/INR (2) Shipman's palsy: Plan: Patient was admitted to [facility] in August of this year for new onset Shipman's palsy Symptoms have remained stable with minimal improvement Continue home eye ointment/drops (3) Hypertension: Plan: Hold amlodipine and lisinopril for now and monitor for improvement of symptoms (4) Glioblastoma: Plan: Continue to follow with [facility] at the time of discharge (5) CAD (coronary artery disease): Plan: No recent episodes of chest pain, high-sensitivity troponin has been within normal limits over the past 24 hours Will obtain EKG at the time of admission to monitor for arrhythmia, continue to monitor on telemetry for now Plan The patient was discussed with Dr. Whitmore at the time of admission History of Present Illness Chief Complaint: Positional dizziness Primary Care Provider: ELIZABET Pimentel Jose is a 77 year old male with a PMH significant for glioblastoma grade 4 with a history of chemoradiation, surgical resection 12/2022, currently on carbo platin, Avastin, and dexamethasone, history of seizures with discontinuation of Keppra due to induction of alcohol craving now on lacosamide, HTN, hyperlipidemia, BPH, CAD, GERD who presented to the [facility] ED on 10/13/23 for the second time in 24 hours for ongoing dizziness/ambulatory dysfunction. The patient was seen in the [facility] ED on 10/12/2023 for the same symptoms. His workup included CBC, CMP, high-sensitivity troponin which were all unremarkable. CT of the head and brain without contrast obtained on 10/12/2023 was read as stable compared to last on 08/14/2023. Since being discharged from on 10/12/2023 the patient has had ongoing positional dizziness causing significant ambulatory dysfunction requiring 2+ assist. Vitals remained stable today. Repeat labs including CBC, CMP, high-sensitivity troponin were unremarkable besides a hemolyzed potassium level which will be repeated. We are asked to admit the patient for ongoing evaluation and PT/OT evaluation. Prior to admission the patient was given 500 mL normal saline and 25 mg meclizine. Patient was sitting in bed in no acute distress at time of exam with his bedside, history was obtained from both. I explained that since his last chemotherapy session on 10/04/2023 patient has had recurrent episodes of positional dizziness and ambulatory dysfunction. When asked, the patient confirms that he only experiences this dizziness when he is changing positions such as lying to sitting sitting to standing. He does not experience any of the symptoms turning his head or changing his [id number]. He turns his head to the left and right in front of me and is asymptomatic, but when I helped him sit up he experiences this dizziness. They mention that he was started on amlodipine approximately 1 month ago as well, the patient is unsure if he had similar symptoms after starting this medication. He denies new symptoms such as headaches, changes in vision, hearing, taste, smell, new paresthesias, unilateral weakness, chest pain, palpitations, shortness of breath, cough abdominal pain, nausea/vomiting, dysuria/hematuria, diarrhea. Since symptoms began the patient had approximately 5 falls at home without resulting injury. He did not have any of his medications today prior to arrival. They confirmed that he is a full code and his is his primary decision-maker if he cannot make decisions himself. Please refer to Dr. Whitmore's attestation for any changes to the treatment plan Allergies Allergy/AdvReac Type Severity Reaction Status Date / Time No Known Allergies Allergy Unknown Verified 10/16/23 08:13 Home Medications Medication Instructions Recorded Confirmed Type acetaminophen 500 mg tablet 500 - 1,000 mg PO UD PRN Pain 02/11/22 10/16/23 History (Tylenol Extra Strength) methylcellulose (laxative) 2 g PO QAM 02/11/22 10/16/23 History (Citrucel Sugar Free oral powder) ondansetron 8 mg disintegrating 8 mg PO Q12H PRN TAKE PRIOR TO 02/11/22 10/16/23 History tablet CHEMO MED aspirin 81 mg tablet,delayed 81 mg PO QAM #30 tabs 02/17/22 10/16/23 Rx release cholecalciferol (vitamin D3) 125 125 mcg PO QAM 02/22/23 10/16/23 History mcg (5,000 unit) tablet (Vitamin D3) famotidine 20 mg tablet 20 mg PO QAM 02/22/23 10/16/23 History nitroglycerin 0.4 mg sublingual 0.4 mg sublingual Q5M PRN Chest 04/07/23 10/16/23 Rx tablet Pain #25 tabs atorvastatin 40 mg tablet 40 mg PO HS #90 tabs 04/27/23 10/16/23 Rx dexamethasone 2 mg tablet 2 mg PO QAM 07/04/23 10/16/23 History docusate sodium 100 mg tablet 100 mg PO DAILY PRN Constipation 07/19/23 10/16/23 History dutasteride 0.5 mg capsule 0.5 mg PO QAM #90 caps 07/27/23 10/16/23 Rx (Avodart) olanzapine 2.5 mg tablet 2.5 mg PO DAILY 07/27/23 10/16/23 History metoprolol succinate 50 mg 50 mg PO QAM #90 tabs 08/07/23 10/16/23 Rx tablet,extended release 24 hr prochlorperazine maleate 10 mg 10 mg PO Q6H PRN Other 08/14/23 10/16/23 History tablet ryegv-f-ukfhkpcyyptku 450 unit 450 unit PO DAILY 10/09/23 10/16/23 History disintegrating tablet (Beano) lacosamide 100 mg tablet (Vimpat) 100 mg PO BID #180 tabs 10/09/23 10/16/23 Rx Past Med/Surg History Problem List (Updated 10/20/23 @ 00:07 by Background Daemon) Frequent falls (Acute) Ambulatory dysfunction (Acute) Hypokalemia (Acute) Dizziness (Acute) Light headedness (Acute) Shipman's palsy Weakness on right side of face (Acute) Glioblastoma (Chronic) Port-A-Cath in place Port-A-Cath in place Insertion of Right Subclavian Access Port Allergic reaction to drug (Acute) Rash (Acute) New onset seizure (Acute) Hypomagnesemia Hypophosphatemia Hyperkalemia (Acute) Acute renal failure (Acute) Hyponatremia (Acute) Splenic infarction Pneumonitis hx Pneumonia (Acute) Acute hypoxemic respiratory failure (Acute) History of craniotomy 01/04/22 Hyponatremia Leukocytosis (Acute) Elevated troponin I level (Acute) Brain mass (Acute) Carotid stenosis, left Hypercholesteremia (Chronic) Anemia hx Hyperlipidemia Medical History Partial seizure Weakness of left arm "since having 2nd brain sx in 12/2022" Seizure hx-most recent 04/25/23, brought to [facility]>no reoccurences since starting medication; f/u in neuro CAD (coronary artery disease) inferior wall [place] 1989 s/p PTCA of the CX artery Diverticulosis Hypertension Prostate nodule Post-void dribbling Atherosclerotic heart disease of [place] coronary artery without angina pectoris History of COVID-19 03/2020- tested d/t testing positive, patient was asymptomatic BPH (benign prostatic hyperplasia) hx Carotid stenosis, left s/p Left CEA with Bovine Patch Angioplasty (2019) Myocardial Infarction 1989 GERD (gastroesophageal reflux disease) Surgical History History of anesthesia complications "During prior anesthetic on 01/22 patient was noted to have labile pressures during induction with propofol, first with extreme hypertension (systolic up to 196) and then hypotension requiring NE gtt" per 12/2022 [facility] anesthesia r ecords Hx of transurethral resection of prostate 2017 History of craniotomy 01/2022, [facility], sx for glioblastoma 12/2022, [facility], 1. Redo Right Temporal craniotomy for resection of brain lesion; 2. Use of [employer] neuronavigation.; Dr. Macario Jordan at [facility] S/P bronchoscopy 02/2022 History of cataract surgery R/L S/P carotid endarterectomy Left CEA with Bovine Patch Angioplasty (2019) History of cystoscopy History of colonoscopy History of tooth extraction Hx of angioplasty 1989 S Family History Father , 86yo Lung cancer Myocardial infarction Hypertension Mother , 92yo Pacemaker Hypertension Sister H/O carotid endarterectomy Stroke following surgery; Hypertension Dyslipidemia Sister Dyslipidemia Hypertension Melanoma Sister Hypertension Denies family history of Ovarian cancer Prostate cancer Breast cancer Colorectal cancer Social History Smoking Status: Never smoker Tobacco Type: Cigarettes Age Started Using Tobacco: 13; Age Quit Using Tobacco: 38; packs per day: 2; Cigarettes Per Day: [id number]; Second Hand Exposure: No; Do You Dip or Chew Tobacco: No; Hx Alcohol Use: No Hx Substance Use: No Preferred Language: Irish Communication Ability: Effective Visual Impairment: No Limitations Hearing Ability: Use of Hearing Aid Compressor Station Operator Required: No Beliefs That Will Affect Care: None marital status: marital status details: Amrita Current Living Situation: Spouse current occupational status: retired How many Children do You have: 0 Feels Safe at Home: Yes Childhood Exposure to Second-Hand Smoke: Yes (father ) Diet: regular Diet Comment: attempts a healthy diet caffeine: Yes (3 cups daily ) during the past year weight has: remained stable Dental Care, Regularly: Yes Physical Activity Frequency: Daily Seatbelt Use: always Sunscreen Use: No Assistive Devices: Cane and Walker Physical Exam 2 Physical Exam: Physical Exam: General: In no acute distress, stated age, well-nourished, non-toxic appearing HEENT: Patient with stable right-sided shipman's palsy, no scleral icterus, pupils are round, symmetrical, and reactive to light, moist mucus membranes, trachea midline, no thyromegaly Chest/Pulm: No respiratory distress, symmetrical chest expansion, clear breath sounds throughout Cardiac: RRR, no murmurs noted Abdomen: Negative for ascites and bruising, normoactive bowel sounds, soft, non-tender to palpation throughout Musculoskeletal: Symmetrical and without signs of acute trauma, upper and lower extremities with full ROM, no atrophy, spasticity, or flaccidity Extremities: Radial, dorsalis pedis, and posterior tibial pulses are intact and symmetrical, 1+ edema in the BL LE's Skin: Mediport noted in the right upper chest is intact and without signs of infection, Warm, dry, no rashes , lesions, or scars noted Neuro: Alert and oriented to person, place, month, year, and president, right-sided shipman's palsy symptoms are stable from last admission, no reproducible symptoms when turning head to the left or right, CN II-XII tested and intact besides known right sided shipman's palsy, negative cerebellar and pronator drift in the BL UE's, >Symptoms are reproduced when having patient site up from a 45 degree position, no signs of nystagmus noted Psych: No acute distress, calm and cooperative during the exam Results & Data Results & Data Vital Signs (Past 12 Hours) Vital Signs Temp Pulse Resp BP Pulse Ox O2 Del Method 10/13/23 12:14 37.0 C 76 18 123/75 99 Room Air Laboratory Results Abnormal lab results 10/13/23 Range/Units 12:33 RBC 3.49 L (4.70-6.10) M/uL Hgb 12.2 L (14.0-18.0) g/dl Hct 36.3 L (42.0-52.0) % MCV 104.0 H (80.0-100.0) fL MCH 35.0 H (25.0-34.0) pg RDW Std Deviation 61.8 H (36.4-46.3) fL RDW Coeff of Nick 16.4 H (11.5-14.5) % Plt Count 122 L (130-400) K/uL Neut # (Auto) 7.11 H (1.40-6.50) K/uL Mobile # (Auto) 0.86 H (0.11-0.59) K/uL BUN/Creatinine Ratio 30.7 H (10-20) Total Bilirubin 1.2 H (0.2-1.0) mg/dl ALT 54 H (7-52) U/L Alkaline Phosphatase 121 H (34-104) U/L ECG Additional Comments: will obtain at the time of the admission Code Status & VTE Plan Code Status Full code VTE Prophylaxis Plan VTE Prophylaxis will be ordered: Yes Supervising Physician Co-Signing Physician Notes I personally saw and examined the patient. I verified all cook points and agree with Ronaldo Salcedo PA-C with the following exceptions and/or additions: 77 year old male presents to the ER with postural dizziness since his last chemotherapy O/E HS RRR, no murmurs, Chest CTAB, Abdo SNT A/P Orthostatic hypotension - Continue metoprolol, hold amlodipine and lisinopril PG Care Time/CCT Total # of Minutes Spent Total Time Spent with Patient: Total time spent is greater than 50% in coordination of care (as documented) at patient's floor/unit and/or counseling patient: Coding [place] [address] INT INP/OBS CARE 2/55MIN Patient Type Established Medical Decision Making Moderate Complexity Diagnoses Light headedness R42 Shipman's palsy G51.0 Hypertension I10 Glioblastoma C71.9 CAD (coronary artery disease) I25.10
[2023-10-13 14:54] LABS: Magnesium 1.4 mg/dl (1.7-2.4)
[2023-10-13 16:52] LABS: Appearance Urine Clear (Clear); Bacteria Urine Automated None Seen (None Seen); Bilirubin Urine Negative (Negative); Blood Urine Negative (Negative); Cast Urine Automated 0-2 /lpf (0-2); Color Urine Yellow; Epithelial Cell Urine Auto 0-2 /hpf (0-2); Glucose Urine UA Negative (Negative); Ketones Urine Negative (Negative); Leukocyte Esterase Urine Negative (Negative); Nitrite Urine Negative (Negative); Protein Urine Trace (Negative); RBC Urine Automated 0-2 /hpf (0-2); Specific Gravity Urine 1.013 (1.000-1.030); Urobilinogen Urine Negative (Negative); WBC Urine Automated 0-5 /hpf (0-5); pH Urine 6.5 (4.5-7.5)
[2023-10-13] MEDS: LACOSAMIDE 50 MG TABLET PO SCH (22:37)
[2023-10-13] MEDS: ATORVASTATIN 40 MG TAB PO SCH (22:37)
[2023-10-14] MEDS: POTASSIUM CHLORIDE CRTAB 20 MEQ TABCR PO STA (00:20)
[2023-10-14] MEDS: POTASSIUM CHLORIDE / WTR 10 MEQ/100 ML PLCT IV SCH (00:21)
[2023-10-14 07:19] LABS: Basophils # (auto) 0.01 K/uL (0.00-0.20); Basophils % (auto) 0.1 %; Eosinophils # (auto) 0.01 K/uL (0.00-0.50); Eosinophils % (auto) 0.1 %; Hematocrit (blood only) 31.8 % (42.0-52.0); Hemoglobin 10.8 g/dl (14.0-18.0); Immature Granulocytes # (auto) 0.05 K/uL (0.01-0.20); Immature Granulocytes % (auto) 0.6 %; Lymphocytes % (auto) 16.8 %; Mean Corpuscular Hemoglobin 35.4 pg (25.0-34.0); Mean Corpuscular Volume 104.3 fL (80.0-100.0); Monocytes # (auto) 0.62 K/uL (0.11-0.59); Neutrophils # (auto) 5.73 K/uL (1.40-6.50); Neutrophils % (auto) 74.4 %; Platelet Count 97 K/uL (130-400); RDW Coefficient of Variation 16.4 % (11.5-14.5); RDW Standard Deviation 62.4 fL (36.4-46.3); Red Blood Count 3.05 M/uL (4.70-6.10); White Blood Count 7.72 K/ul (4.8-10.8)
[2023-10-14 07:48] LABS: Albumin Globulin Ratio 1.5 (0.9-2); Albumin Level 3.3 gm/dl (3.4-5.0); BUN Creatinine Ratio 24.6 (10-20); Bilirubin,Total 1.1 mg/dl (0.2-1.0); Calcium 8.3 mg/dl (8.6-10.3); Creatinine Clr Calc Pharmacy 111.5 ml/min; Est GFR (Non-African American) 98.4 ml/min; Globulin 2.2 gm/dl (2.5-4.0); Magnesium 1.1 mg/dl (1.7-2.4); Potassium 3.3 mmol/L (3.5-5.1); Total Protein 5.5 gm/dl (6.0-8.3)
[2023-10-14] MEDS: FAMOTIDINE 20 MG TAB PO SCH (08:08)
[2023-10-14] MEDS: ASPIRIN 81 MG ECTAB PO SCH (08:08)
[2023-10-14] MEDS: METOPROLOL SUCC 50MG EXT REL TAB PO SCH (08:08)
[2023-10-14] MEDS: dexAMETHasone 1 MG TAB PO SCH (08:08)
[2023-10-14] MEDS: MAGNESIUM SULFATE / D5W 1 GM/100 ML BAG IV SCH (08:13)
[2023-10-14] MEDS: FINASTERIDE 5 MG TAB PO SCH (08:41)
[2023-10-14] MEDS ORDERED: OLANZAPINE 2.5 MG TAB PO SCH (09:00)
--- NOTE | 2023-10-14 10:36 | Hospitalist Progress Note ---
Date of Service October 14, 2023 Assessment & Plan (1) Light headedness: Plan: Patient originally presented to the ED on 10/12 with complaints of lightheadedness while changing positions causing ambulatory dysfunction and about 5 falls over the last 2 weeks. His symptoms only occur from lying to sitting or sitting to standing positions. -suspect from orthostatic hypotension vs electrolyte derangement -orthostatic vitals 10/13: lying BP 153/78, sitting BP 120/76, standing BP 93/62. -Reviewed Head CT 10/11: no change in 2.6x1.4cm lesion within right temporal operative bed since prior CT - recurrent/residual tumor -Reviewed CXR 10/11: no significant change compared to prior study -Reviewed CBC 10/13: hgb 10.8, WBC WNL -Reviewed BMP 10/13: K 3.3, Mg 1.1 -s/p 40meq PO potassium and 40meq K riders -s/p 2g IV magnesium -repeat labs @ 1400 -Will hold off on MRI of brain as he doesn't have new focal neuro defects since last admission for Shipman's palsy in August when he underwent MRI of brain w/o contrast. -Will hold amlodipine and lisinopril. Continue with Metoprolol for now. -Fall precautions/aspiration precautions -PT/OT consulted PT/OT consults as patient may need rehab at the time of discharge AM CBC, BMP, mag (2) Shipman's palsy: Plan: Patient was admitted to [facility] in August of this year for new onset Shipman's palsy Symptoms have remained stable with minimal improvement Continue home eye ointment/drops, added to patient medication list (3) Hypertension: Plan: Hold amlodipine and lisinopril for now and monitor for improvement of symptoms - Continue Metoprolol (4) Glioblastoma: Plan: Continue to follow with [facility] at the time of discharge (5) CAD (coronary artery disease): Plan: No recent episodes of chest pain, high-sensitivity troponin has been within normal limits over the past 24 hours Will obtain EKG at the time of admission to monitor for arrhythmia, continue to monitor on telemetry for now -EKG reviewed 10/13: normal sinus rhythm Plan DVT prophylaxis: SCDs Diet: heart healthy Code status: full code Disposition: continued inpatient stay monitoring BP. Updated at bedside 10/13. Admission and Anticipated Discharge Date Admission Date: October 13, 2023 Subjective Patient seen and examined this morning at bedside. Patient also examined in afternoon with at bedside. This morning, patient stated he was still dizzy upon standing/sitting from lying down. He denied any additional complaints at that time. he denied chest pain or shortness of breath. He does not feel dizzy when he moves his head from side to side. In the afternoon, patient noted some improvement in his dizziness. He stated it wasn't as severe when he went to use the restroom the last time. states that about a month ago, his BP was very high at an oncology appt. and Dr. Shore prescribed him amlodipine. states he does not typically have history of high BP. She states that patient had chemo on 10/03 and they went to outdoor picnic on 10/04 and was wondering if this had any effect on his symptoms. also brought medication for his right eye at bedtime from [facility] and requested artifical drops for the patient. Physical Exam 2 Constitutional: WD/WN, vitals as above Eyes: PERRL, conjunctivae normal, anicteric sclerae ENMT: external ear and nose normal, oropharynx normal Respiratory: normal respiratory effort, lungs clear to auscultation Cardiovascular: RRR, no murmur, no edema Skin: no rashes, warm and dry Neurologic: right sided Shipman's palsy stable from last admission. Psychiatric: A+Ox3, euthymic affect Results & Data Results & Data Vital Signs (Past 12 Hours) Vital Signs Temp Pulse Pulse Pulse Resp BP Pulse Ox 10/14/23 10:25 10/14/23 07:37 80 10/14/23 07:32 36.6 C 71 18 155/83 H 99 10/14/23 03:40 36.9 C 81 18 146/83 H 97 10/13/23 23:30 36.6 C 78 20 151/86 H 93 10/13/23 23:21 80 O2 Del Method 10/14/23 10:25 Room Air 10/14/23 07:37 10/14/23 07:32 Room Air 10/14/23 03:40 Room Air 10/13/23 23:30 Room Air 10/13/23 23:21 Laboratory Results 10/14/23 06:37 PG Care Time/CCT Total # of Minutes Spent Total Time Spent with Patient: Total time spent is greater than 50% in coordination of care (as documented) at patient's floor/unit and/or counseling patient: Coding Level of Care Code 72721 SUB INP/OBS CARE 3/50MIN Diagnoses Light headedness R42 Shipman's palsy G51.0 Primary hypertension I10 Hypertension type: primary hypertension Glioblastoma C71.9 Coronary artery disease involving [place] heart without angina pectoris, unspecified vessel or lesion type I25.10 Coronary Disease-Associated Artery/Lesion type: unspecified vessel or lesion type [place] vs. transplanted heart: [place] heart Associated angina: without angina (3) Hypertension Hypertension type: primary hypertension Qualified Code(s): I10 - Essential (primary) hypertension (5) CAD (coronary artery disease) Coronary Disease-Associated Artery/Lesion type: unspecified vessel or lesion type [place] vs. transplanted heart: [place] heart Associated angina: without angina Qualified Code(s): I25.10 - Atherosclerotic heart disease of [place] coronary artery without angina pectoris
--- NOTE | 2023-10-14 11:46 | Electrocardiogram Report ---
Test Reason : Blood Pressure : / mmHG Vent. Rate : 079 BPM Atrial Rate : 079 BPM P-R Int : 136 ms QRS Dur : 086 ms QT Int : 382 ms P-R-T Axes : 014 000 059 degrees QTc Int : 438 ms Normal sinus rhythm Nonspecific ST abnormality Abnormal ECG When compared with ECG of 12-OCT-2023 17:12, No significant change was found Confirmed by Khadar García ([id number]) on 10/14/2023 11:45:31 AM Referred By: Romain Whitmore Confirmed By:Khadar García
[2023-10-14] MEDS ORDERED: ARTIFICIAL TEARS OPB PRN (15:23)
[2023-10-14 16:31] LABS: BUN Creatinine Ratio 24.2 (10-20); Calcium 8.8 mg/dl (8.6-10.3); Creatinine Clr Calc Pharmacy 102.5 ml/min; Est GFR (African American) 110.1 ml/min; Magnesium 1.6 mg/dl (1.7-2.4); Potassium 3.8 mmol/L (3.5-5.1)
[2023-10-14] MEDS: MAGNESIUM SULFATE / D5W 1 GM/100 ML BAG IV ONE (17:25)
[2023-10-14] MEDS: [UNRECOGNIZED DRUG - OTHER] EXT SCH (21:21)
[2023-10-15 06:16] LABS: Basophils # (auto) 0.01 K/uL (0.00-0.20); Basophils % (auto) 0.1 %; Hemoglobin 10.2 g/dl (14.0-18.0); Immature Granulocytes # (auto) 0.06 K/uL (0.01-0.20); Immature Granulocytes % (auto) 0.7 %; Lymphocytes # (auto) 1.27 K/uL (1.20-3.40); Lymphocytes % (auto) 15.2 %; Mean Corpuscular Hemoglobin 35.4 pg (25.0-34.0); Mean Corpuscular Volume 104.2 fL (80.0-100.0); Mean Platelet Volume 10.2 fL (9.4-12.4); Monocytes # (auto) 0.65 K/uL (0.11-0.59); Monocytes % (auto) 7.8 %; Neutrophils # (auto) 6.34 K/uL (1.40-6.50); Neutrophils % (auto) 76.2 %; Platelet Count 92 K/uL (130-400); RDW Coefficient of Variation 16.2 % (11.5-14.5); RDW Standard Deviation 61.3 fL (36.4-46.3); Red Blood Count 2.88 M/uL (4.70-6.10); White Blood Count 8.33 K/ul (4.8-10.8)
[2023-10-15 06:33] LABS: Albumin Globulin Ratio 1.6 (0.9-2); Albumin Level 3.3 gm/dl (3.4-5.0); Calcium 8.6 mg/dl (8.6-10.3); Creatinine Clr Calc Pharmacy 107.7 ml/min; Est GFR (African American) 112.4 ml/min; Globulin 2.1 gm/dl (2.5-4.0); Magnesium 1.6 mg/dl (1.7-2.4); Potassium 3.5 mmol/L (3.5-5.1); Total Protein 5.4 gm/dl (6.0-8.3)
[2023-10-15] MEDS: MAGNESIUM SULFATE / D5W 1 GM/100 ML BAG IV SCH (08:51)
--- NOTE | 2023-10-15 11:27 | Discharge Summary ---
<Statement entered by Carlene Reed MD - 10/15/23 15:57> Highly symptomatic orthostatic hypotension that resolved with reducing BP meds. He will probably not tolerate tight control of BP and will have to accept some supine/sitting hypertension. Recommended home BP cuff. Date of Service October 15, 2023 Admission HPI Per Admitting Provider Jose is a 77 year old male with a PMH significant for glioblastoma grade 4 with a history of chemoradiation, surgical resection 12/2022, currently on carboplatin, Avastin, and dexamethasone, history of seizures with discontinuation of Keppra due to induction of alcohol craving now on lacosamide, HTN, hyperlipidemia, BPH, CAD, GERD who presented to the [facility] ED on 10/13/23 for the second time in 24 hours for ongoing dizziness/ambulatory dysfunction. The patient was seen in the [facility] ED on 10/12/2023 for the same symptoms. His workup included CBC, CMP, high-sensitivity troponin which were all unremarkable. CT of the head and brain without contrast obtained on 10/12/2023 was read as stable compared to last on 08/14/2023. Since being discharged from on 10/12/2023 the patient has had ongoing positional dizziness causing significant ambulatory dysfunction requiring 2+ assist. Vitals remained stable today. Repeat labs including CBC, CMP, high-sensitivity troponin were unremarkable besides a hemolyzed potassium level which will be repeated. We are asked to admit the patient for ongoing evaluation and PT/OT evaluation. Prior to admission the patient was given 500 mL normal saline and 25 mg meclizine. Patient was sitting in bed in no acute distress at time of exam with his bedside, history was obtained from both. I explained that since his last chemotherapy session on 10/04/2023 patient has had recurrent episodes of positional dizziness and ambulatory dysfunction. When asked, the patient confirms that he only experiences this dizziness when he is changing positions such as lying to sitting sitting to standing. He does not experience any of the symptoms turning his head or changing his [id number]. He turns his head to the left and right in front of me and is asymptomatic, but when I helped him sit up he experiences this dizziness. They mention that he was started on amlodipine approximately 1 month ago as well, the patient is unsure if he had similar symptoms after starting this medication. He denies new symptoms such as headaches, changes in vision, hearing, taste, smell, new paresthesias, unilateral weakness, chest pain, palpitations, shortness of breath, cough abdominal pain, nausea/vomiting, dysuria/hematuria, diarrhea. Since symptoms began the patient had approximately 5 falls at home without resulting injury. He did not have any of his medications today prior to arrival. They confirmed that he is a full code and his is his primary decision-maker if he cannot make decisions himself. Please refer to Dr. Whitmore's attestation for any changes to the treatment plan Principal Diagnosis orthostatic hypotension Discharge Exam Constitutional WD/WN, vitals as above Eyes PERRL, conjunctivae normal, anicteric sclerae Respiratory normal respiratory effort, lungs clear to auscultation Cardiovascular RRR, no murmur, no edema Skin no rashes, warm and dry Psychiatric A+Ox3, euthymic affect Discharge Data Allergies Allergy/AdvReac Type Severity Reaction Status Date / Time No Known Allergies Allergy Unknown Verified 10/13/23 15:07 Consultations 10/13/23 14:10 ED Decision to Admit Stat Ordered Studies 10/15/23 05:36 10/15/23 05:36 Vital Signs Temp 36.4 C L 10/15/23 10:56 Pulse 81 10/15/23 10:56 Resp 16 10/15/23 10:56 BP 143/83 H 10/15/23 10:56 Pulse Ox 98 10/15/23 10:56 O2 Del Method Room Air 10/15/23 10:50 Hospital Course (1) Light headedness: Patient originally presented to the ED on 10/12 with complaints of lightheadedness while changing positions causing ambulatory dysfunction and about 5 falls over the last 2 weeks. His symptoms only occur from lying to sitting or sitting to standing positions. This is likely due to combination of orthostatic hypotension & electrolyte derangement. Orthostatic vitals from 10/13 were lying 153/78, sitting 120/76, and standing 93/62. Head CT from 10/11 revealed no change in tumor. CBC did reveal mild anemia on 10/14 but likely diluational. Patient did have low potassium that was repleted with 40meq PO and 40meq K riders on 10/13. His magnesium was also low at 1.1 on 10/13. This was repleted as well. Amlodipine and lisinopril were held during his hospital stay. Metoprolol was continued. He was to hold amlodipine/lisinopril until he sees his PCP for follow up to discuss management. 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 Symptoms have remained stable with minimal improvement. He was continued on home eye ointment during his hospital stay and given artificial tears prn (3) Hypertension: Hold amlodipine and lisinopril for now and monitor for improvement of symptoms and continue Metoprolol. Discuss w/ PCP at follow up visit BP management. (4) Glioblastoma: [facility]. Patient states he has chemotherapy 10/17 (5) CAD (coronary artery disease): No recent episodes of chest pain, high-sensitivity troponin WNL. Repeat EKG on 10/13 was normal sinus rhythm. Total Time Total Time Spent Total Time Spent (In Minutes): 42 Total Time Includes: Examination of the Patient, Discharge Planning and Medication Reconciliation Discharge Plan Discharge Items Patient Disposition: Home - Self-Care Reason For Visit: DIZZINESS, AMBULATORY DYSFUNCTION Discharge Diagnosis: Orthostatic hypotension Activity: Resume your previous activity Non-emergency contact: Primary Care Provider Call non-emergency contact if: you have any medication questions and your symptoms worsen Follow-up/Referrals: Leonardo Gates CRNP [Primary Care Provider] - 11/03/23 8:20 am Diet: Heart Healthy Diet Texture: Easy to Chew Addtl Attending Provider Instructions: Mr. Bose, You were recently hospitalized for experiencing dizziness. You did have low potassium and low magnesium levels that were replaced while you were here. The main factor contributing to your dizziness was likely your blood pressure. You were on too much blood pressure medication which was causing low blood pressure therefore causing dizziness. During your stay, we stopped your blood pressure medications and your symptoms resolved. Please see recommendations below regarding your discharge. 1. Please stop taking Lisinopril and Amlodipine 2. You may continue on Metoprolol as previously prescribed 3. Please monitor your BP at home frequently with a home cuff. -Please call your PCP if you experience persistent systolic readings in the 180s. 4. To avoid dizziness, please change positions (sitting, standing, lying) slowly. 5. Continue on your eye ointment and drops for Shipman's palsy 6. Continue to follow with oncology for chemotherapy. Please follow up with your PCP within 1-2 weeks of discharge to discuss your blood pressure medications. If you develop any chest pain, shortness of breath, increasing weakness/dizziness please report back to the ER for further evaluation. Sincerely, Екатерина Valladares PA-C Pending Studies at Discharge: No Stand-Alone Forms: My Wish, Smoking Cessation Medications and DC Order Prescriptions: Continued olanzapine 2.5 mg tablet 2.5 mg PO DAILY Patient Comments: for chemo Rx Instructions: As of 10/13/23 pt hasn't needed to take this medication yet. nitroglycerin 0.4 mg tablet, sublingual 0.4 mg sublingual Q5M PRN (Reason: Chest Pain) Qty: 25 3RF Rx Instructions: do not exceed 3 doses per episode atorvastatin 40 mg tablet 40 mg PO HS Qty: 90 3RF dutasteride [Avodart] 0.5 mg capsule 0.5 mg PO QAM Qty: 90 1RF metoprolol succinate 50 mg tablet extended release 24 hr 50 mg PO QAM Qty: 90 1RF ondansetron 8 mg tablet,disintegrating 8 mg PO Q12H PRN (Reason: TAKE PRIOR TO CHEMO MED) Patient Comments: takes day of chemo before bed Rx Instructions: last filed February 2023 Beano 450 unit tablet,disintegrating 450 unit PO DAILY lacosamide [Vimpat] 100 mg tablet 100 mg PO BID Qty: 180 3RF acetaminophen [Tylenol Extra Strength] 500 mg Tablet 500 - 1,000 mg PO UD PRN (Reason: Pain) Citrucel Sugar Free Powder 2 g PO QAM aspirin 81 mg Tablet,Delayed Release (Dr/Ec) 81 mg PO QAM Qty: 30 0RF famotidine 20 mg Tablet 20 mg PO QAM cholecalciferol (vitamin D3) [Vitamin D3] 125 mcg (5,000 unit) Tablet 125 mcg PO QAM dexamethasone 2 mg tablet 2 mg PO QAM docusate sodium 100 mg Tablet 100 mg PO DAILY PRN (Reason: Constipation) prochlorperazine maleate 10 mg tablet 10 mg PO Q6H PRN (Reason: Other) Discontinued lisinopril 10 mg tablet 10 mg PO QAM Qty: 90 3RF amlodipine 5 mg tablet See Rx Instructions .ROUTE .COMPLEX Rx Instructions: Take 5mg with 10mg tablet to equal 15mg by mouth every morning amlodipine 10 mg tablet See Rx Instructions .ROUTE .COMPLEX Rx Instructions: Take 10mg with 5mg tablet to equal 15mg by mouth every morning Discharge Orders: Discharge Order (Routine); Ordered 10/15/23 Ordered By: Екатерина Valladares Admission Data Admit Date/Time: 10/13/23 14:21 Attending Provider: Carlene Reed Admit Provider: Romain Whitmore Primary Care Provider: Leonardo Gates Other Providers: Romain Whimtore Other Interventions: Discharge Summary Assessment (RN) Last Done: 10/15/23 10:56 Coding Level of Care Code 94576 INP/OBS DISCH >30 MIN Diagnoses Light headedness R42 Shipman's palsy G51.0 Primary hypertension I10 Hypertension type: primary hypertension Glioblastoma C71.9 Coronary artery disease involving [place] heart without angina pectoris, unspecified vessel or lesion type I25.10 Associated angina: without angina Coronary Disease-Associated Artery/Lesion type: unspecified vessel or lesion type [place] vs. transplanted heart: [place] heart
[2023-10-15] MEDS: HEPARIN 100 UNIT/ML 5ML FLUSH FLUSH PRN (13:08)
== END 2023-10-15 14:03 | disposition home or self-care (01) | DRG 312 ==
LOC: ED 11:26 → EDINP 14:21 → SUATTDRO 14:21 → EDINP 15:28 → 2N 23:22

== ENCOUNTER 2023-11-13 21:21 | Inpatient (IN) ==
--- NOTE | 2023-11-13 21:54 | Emergency Department Note ---
Impression & Plan Acute UTI (urinary tract infection), Acute urinary retention, Weakness, Recurrent falls ED Provider Note Name: NELSON LOU Jr Age: 77 Sex: Male Arrives Via: Ambulance Informant: Patient and ED Provider: Terrence Barrios MD Chief Complaint: Urinary symptoms Impression: As per impressions above Medical Decision Making: Pleasant 77-year-old gentleman with a history of glioblastoma and recurrent hospitalizations for ambulatory dysfunction weakness. Has been home following rehab stay for the last week and a half. Worsening weakness with multiple falls at home though denies any injuries or head injury. Patient tonight is primarily here for severe suprapubic pain and inability to urinate. He has urinary retention. Quiros placed with vast improvement. UA consistent with UTI. Patient is quite weak and clearly is a danger if going home at this point. Hospitalist consulted for further management. Patient was given daptomycin as he has previously had a resistant coag negative staph in his urine. At this time patient is not severe sepsis or septic shock. He does not have any hypotension is procalcitonin is normal and his white blood cell count is at his typical baseline. There is some mild dehydration for which IV fluids were given. Of note there is a fair amount of blood within the Quiros now. Unclear if this is from him pulling more whether primarily urinary retention secondary to blood. Discussed with hospitalist plan to rehydrate and continue monitoring we will hold off on imaging at this time. Triage/Nursing Notes reviewed by Me External Chart Review by me: 11/06/2023 transition of care visit reviewed by me. Appears at that time that patient was already having issues with ambulatory and getting to PCP visits. Differential:Infection, dehydration, metabolic abnormality, hypo/hyperglycemia, electrolyte disturbance, anemia, hypoxia, cardiac sources, intracerebral event, toxicologic, neurologic, as well as other pathologies. Vital Signs: reviewed and remarkable for hypertension Interventions: Quiros catheter, normal saline bolus 1 L IV, daptomycin IV Labs:ED labs Reviewed by me and remarkable for no specific acute abnormalities other than mildly elevated BUN. UA concerning for 4+ bacteria and blood [facility] and they will evaluate for further management. Plan: Disposition:Hospitalization. Condition: Fair History of Present Illness: 77-year-old gentleman arrives for evaluation of urinary symptoms. Patient with a history of glioblastoma ambulatory dysfunction has been at home for the last week and a half after being released from rehab. Patient notes that he has been falling frequently due to his weakness. Unable to be treated for his cancer recently. Patient notes that he started developing urinary burning malodorous urine and discomfort over the last few days. Now symptoms are much more severe. Patient has also been quite weak gradually worsening to the point where unable to really get out of the house or even get around the house much. He was started on Flomax at rehab facility and has been taking his medications since getting home. Past Medical History:See Below Home Medications:See Below Allergies: No known drug allergies Vitals:Blood Pressure: 153/91, Pulse 81, RR 33, T 36.5C, O2 97% on RA Physical Exam: GENERAL: Patient is very uncomfortable appearing and in severe distress. Writhing around on bed. Unkempt. Malodorous. RESPIRATORY: No dyspnea. Clear to auscultation and equal bilaterally. CARDIOVASCULAR: Regular rate and rhythm.No murmur appreciated. GASTROINTESTINAL: Abdomen soft, non-tender, no peritonitis. : Uncircumcised no swelling/erythema. TTP over suprapubic with fullness EXTREMITIES: Normal motion all extremities, no cyanosis, no edema. NEUROLOGIC: Left sided weakness, facial weakness SKIN: Multiple skin abrasions/breakdown. No rash, no jaundice, no diaphoresis. PSYCH: Appropriate GCS: 15 ED Course: Times/Reassessments: Patient is much improved with Quiros catheter. He still seems a bit uncomfortable but denies any pain. Agreeable to hospitalization. Terrence Barrios MD Past Med/Surg History Problem List (Updated 11/13/23 @ 23:25 by Terrence Barrios MD) Recurrent falls (Acute) Weakness (Acute) Acute urinary retention (Acute) Acute UTI (urinary tract infection) (Acute) Ambulatory dysfunction (Acute) Hypokalemia (Acute) Dizziness (Acute) Light headedness (Acute) Shipman's palsy Weakness on right side of face (Acute) Glioblastoma (Chronic) Port-A-Cath in place Port-A-Cath in place Insertion of Right Subclavian Access Port Allergic reaction to drug (Acute) Rash (Acute) New onset seizure (Acute) Hypomagnesemia Hypophosphatemia Hyperkalemia (Acute) Acute renal failure (Acute) Hyponatremia (Acute) Splenic infarction Pneumonitis hx Pneumonia (Acute) Acute hypoxemic respiratory failure (Acute) History of craniotomy 01/04/22 Hyponatremia Leukocytosis (Acute) Elevated troponin I level (Acute) Brain mass (Acute) Carotid stenosis, left Hypercholesteremia (Chronic) Anemia hx Hyperlipidemia Medical History Partial seizure Weakness of left arm "since having 2nd brain sx in 12/2022" Seizure hx-most recent 04/25/23, brought to [facility]>no reoccurences since starting medication; f/u [facility] neuro CAD (coronary artery disease) inferior wall [place] 1989 s/p PTCA of the CX artery Diverticulosis Hypertension Prostate nodule Post-void dribbling Atherosclerotic heart disease of [place] coronary artery without angina pectoris History of COVID-19 03/2020- tested d/t testing positive, patient was asymptomatic BPH (benign prostatic hyperplasia) hx Carotid stenosis, left s/p Left CEA with Bovine Patch Angioplasty (2019) Myocardial Infarction 1989 GERD (gastroesophageal reflux disease) Surgical History History of anesthesia complications "During prior anesthetic on 01/22 patient was noted to have labile pressures during induction with propofol, first with extreme hypertension (systolic up to 196) and then hypotension requiring NE gtt" per 12/2022 [facility] [place] [facility] anesthesia records Hx of transurethral resection of prostate 2017 History of craniotomy 01/2022, [facility] [place], sx for glioblastoma 12/2022, [facility] [place] [facility], 1. Redo Right Temporal craniotomy for resection of brain lesion; 2. Use of Stealth neuronavigation.; Dr. Macario Jordan at [facility] S/P bronchoscopy 02/2022 History of cataract surgery R/L S/P carotid endarterectomy Left CEA with Bovine Patch Angioplasty (2019) History of cystoscopy History of colonoscopy History of tooth extraction Hx of angioplasty [address] [facility] Family History Father , 86yo Lung cancer Myocardial infarction Hypertension Mother , 92yo Pacemaker Hypertension Sister H/O carotid endarterectomy Stroke following surgery; Hypertension Dyslipidemia Sister Dyslipidemia Hypertension Melanoma Sister Hypertension Denies family history of Ovarian cancer Prostate cancer Breast cancer Colorectal cancer Social History Smoking Status: Unknown if ever smoked Tobacco Type: Cigarettes Age Started Using Tobacco: 13; Age Quit Using Tobacco: 38; packs per day: 2; Cigarettes Per Day: [id number]; Second Hand Exposure: No; Do You Dip or Chew Tobacco: No; Hx Alcohol Use: No Hx Substance Use: No Preferred Language: Tunisian Communication Ability: Effective Visual Impairment: No Limitations Hearing Ability: Use of Hearing Aid Aerosol Line Operator Required: No Beliefs That Will Affect Care: None marital status: marital status details: Amrita Current Living Situation: Spouse current occupational status: retired How many Children do You have: 0 Feels Safe at Home: Yes Childhood Exposure to Second-Hand Smoke: Yes (father ) Diet: regular Diet Comment: attempts a healthy diet caffeine: Yes (3 cups daily ) during the past year weight has: remained stable Dental Care, Regularly: Yes Physical Activity Frequency: Daily Seatbelt Use: always Sunscreen Use: No Assistive Devices: Cane and Walker Allergies Allergies Allergy/AdvReac Type Severity Reaction Status Date / Time No Known Allergies Allergy Unknown Verified 10/16/23 08:13 Home Meds Home Medications Medication Instructions Recorded Confirmed acetaminophen 500 mg tablet 500 - 1,000 mg PO UD PRN Pain 02/11/22 10/16/23 (Tylenol Extra Strength) methylcellulose (laxative) 2 g PO QAM 02/11/22 10/16/23 (Citrucel Sugar Free oral powder) ondansetron 8 mg disintegrating 8 mg PO Q12H PRN TAKE PRIOR TO 02/11/22 10/16/23 tablet CHEMO MED cholecalciferol (vitamin D3) 125 125 mcg PO QAM 02/22/23 10/16/23 mcg (5,000 unit) tablet (Vitamin D3) famotidine 20 mg tablet 20 mg PO QAM 02/22/23 10/16/23 dexamethasone 2 mg tablet 2 mg PO QAM 07/04/23 10/16/23 docusate sodium 100 mg tablet 100 mg PO DAILY PRN Constipation 07/19/23 10/16/23 olanzapine 2.5 mg tablet 2.5 mg PO DAILY 07/27/23 10/16/23 prochlorperazine maleate 10 mg 10 mg PO Q6H PRN Other 08/14/23 10/16/23 tablet nafmo-[id number] 450 unit 450 unit PO DAILY 10/09/23 10/16/23 disintegrating tablet (Beano) Previous Rx's Medication Instructions Recorded aspirin 81 mg tablet,delayed 81 mg PO QAM #30 tabs 02/17/22 release nitroglycerin 0.4 mg sublingual 0.4 mg sublingual Q5M PRN Chest 04/07/23 tablet Pain #25 tabs atorvastatin 40 mg tablet 40 mg PO HS #90 tabs 04/27/23 dutasteride 0.5 mg capsule 0.5 mg PO QAM #90 caps 07/27/23 (Avodart) metoprolol succinate 50 mg 50 mg PO QAM #90 tabs 08/07/23 tablet,extended release 24 hr lacosamide 100 mg tablet (Vimpat) 100 mg PO BID #180 tabs 11/03/23 Results & Data (ED) Vital Signs Vital Signs - 24 hr 11/13/23 21:31 11/13/23 21:33 11/13/23 21:34 Temperature 36.5 C Temperature Source Oral Pulse Rate 89 Pulse Rate [Apical] 79 Pulse Rate from SpO2 Sensor 79 Pulse Rhythm [Apical] Regular Pulse Strength [Apical] Normal Respiratory Rate 33 H Respiratory Effort / Characteristics Non-Labored Respiratory Depth Normal Respiratory Pattern Blood Pressure 153/91 H Blood Pressure [Left Arm] 153/91 H Blood Pressure Mean 118 Blood Pressure Mean [Left Arm] 111 Pulse Oximetry 90 97 Oxygen Delivery Method Room Air Room Air Sepsis Recent Fever Within 48 Hours No Sepsis New/Unexplained Change in Mental Status No Sepsis Action Taken by Nursing No Action Required 11/13/23 21:49 11/13/23 23:00 11/13/23 23:42 Temperature Temperature Source Pulse Rate 81 Pulse Rate [Apical] 76 74 Pulse Rate from SpO2 Sensor Pulse Rhythm [Apical] Pulse Strength [Apical] Respiratory Rate 18 20 Respiratory Effort / Characteristics Non-Labored Non-Labored Respiratory Depth Normal Normal Respiratory Pattern Regular Regular Blood Pressure Blood Pressure [Left Arm] 141/104 H 136/85 Blood Pressure Mean Blood Pressure Mean [Left Arm] 116 102 Pulse Oximetry 93 97 Oxygen Delivery Method Room Air Room Air Sepsis Recent Fever Within 48 Hours Sepsis New/Unexplained Change in Mental Status Sepsis Action Taken by Nursing Laboratory Data 11/13/23 22:07 11/13/23 22:07 Lab Results 11/13/23 11/13/23 Range/Units 21:56 22:07 WBC 11.72 H (4.8-10.8) K/ul RBC 3.37 L (4.70-6.10) M/uL Hgb 11.9 L (14.0-18.0) g/dl Hct 36.0 L (42.0-52.0) % MCV 106.8 H (80.0-100.0) fL MCH 35.3 H (25.0-34.0) pg MCHC 33.1 (32.0-36.0) g/dL RDW Std Deviation 65.7 H (36.4-46.3) fL RDW Coeff of Nick 16.6 H (11.5-14.5) % Plt Count 154 (130-400) K/uL MPV 9.7 (9.4-12.4) fL Immature Gran % (Auto) 0.8 % Neut % (Auto) 83.2 % Lymph % (Auto) 9.2 % [place] % (Auto) 6.7 % Eos % (Auto) 0.0 % Baso % (Auto) 0.1 % Neut # (Auto) 9.75 H (1.40-6.50) K/uL Lymph # (Auto) 1.08 L (1.20-3.40) K/uL [place] # (Auto) 0.79 H (0.11-0.59) K/uL Eos # (Auto) 0.00 (0.00-0.50) K/uL Baso # (Auto) 0.01 (0.00-0.20) K/uL Immature Gran # (Auto) 0.09 (0.01-0.20) K/uL Absolute Nucleated RBC 0.02 (0.00-0.12) K/uL Nucleated RBC % (auto) 0.2 % Sodium 140 (136-145) mmol/L Potassium 3.8 (3.5-5.1) mmol/L Chloride 108 H (98-107) mmol/L Carbon Dioxide 22 (21-32) mmol/L Anion Gap 10 (3-11) BUN 29 H (6-23) mg/dl Creatinine 0.70 (0.6-1.4) mg/dl Est Cr Clr Drug Dosing 90.5 ml/min Est GFR ( Amer) 104.8 ml/min Est GFR (Non-Af Amer) 90.4 ml/min BUN/Creatinine Ratio 41.4 H (10-20) Glucose 101 H (70-99(Fasting)) mg/dl Calcium 9.3 (8.6-10.3) mg/dl Magnesium 1.7 (1.7-2.4) mg/dl Total Bilirubin 1.0 (0.2-1.0) mg/dl Direct Bilirubin 0.1 (0-0.2) mg/dl AST 27 (13-39) U/L ALT 38 (7-52) U/L Alkaline Phosphatase 97 (34-104) U/L Troponin I High Sens 13.2 (0-20) pg/ml Total Protein 6.3 (6.0-8.3) gm/dl Albumin 3.7 (3.4-5.0) gm/dl Procalcitonin 0.05 (0-0.5) ng/ml TSH 1.827 (0.300-4.500) uIu/ml Urine Color Dark Yellow Urine Appearance Turbid A (Clear) Urine pH >= 9.0 H (4.5-7.5) Ur Specific [place] 1.019 (1.000-1.030) Urine Protein 3+ H (Negative) Urine Glucose (UA) Negative (Negative) Urine Ketones Negative (Negative) Urine Blood Negative (Negative) Urine Nitrite Positive A (Negative) Urine Bilirubin Negative (Negative) Urine Urobilinogen Negative (Negative) Ur Leukocyte Esterase 1+ H (Negative) Urine WBC (Auto) 6-10 H (0-5) /hpf Urine RBC (Auto) 6-10 H (0-2) /hpf U Hyaline Cast (Auto) 3-5 H (0-2) /lpf U Epithel Cells (Auto) 0-2 (0-2) /hpf Urine Bacteria (Auto) 4+ H (None Seen) Administered Medications Discontinued Medications Sodium Chloride (Nss) 1,000 mls @ 999 mls/hr IV .[id number] ONE Stop: 11/13/23 23:55 Last Infusion: 11/14/23 00:12 Dose: Infused Documented By: Admin: 11/13/23 23:08 Dose: 999 mls/hr Documented By: KMB Daptomycin 450 mg/ Syringe 9 mls @ 4.5 mls/min IV NOW STA; Protocol Stop: 11/13/23 23:23 Last Admin: 11/13/23 23:49 Dose: 4.5 mls/min Documented By: KRISTINA Ceftriaxone Sodium (Rocephin) 2,000 mg in 50 mls @ 100 mls/hr IV NOW STA Stop: 11/14/23 00:07 Last Admin: 11/13/23 23:52 Dose: 100 mls/hr Documented By: KRISTINA Discharge Plan Visit Data Chief Complaint: Fall Stated Complaint: FALL X2, UNABLE TO URINATE, HX BRAIN TUMOR, CA. ED Provider: Terrence Barrios Discharge Problem: Acute UTI (urinary tract infection), Acute urinary retention, Weakness, Recurrent falls Discharge Instructions Interventions: ED Discharge Assessment Last Done: 11/14/23 00:19 Forms Stand Alone Forms: My [facility] [employer] Prescriptions Prescriptions: No Action olanzapine 2.5 mg tablet 2.5 mg PO DAILY Patient Comments: for chemo Rx Instructions: As of 10/13/23 pt hasn't needed to take this medication yet. nitroglycerin 0.4 mg tablet, sublingual 0.4 mg sublingual Q5M PRN (Reason: Chest Pain) Qty: 25 3RF Rx Instructions: do not exceed 3 doses per episode atorvastatin 40 mg tablet 40 mg PO HS Qty: 90 3RF dutasteride [Avodart] 0.5 mg capsule 0.5 mg PO QAM Qty: 90 1RF metoprolol succinate 50 mg tablet extended release 24 hr 50 mg PO QAM Qty: 90 1RF lacosamide [Vimpat] 100 mg tablet 100 mg PO BID Qty: 180 3RF ondansetron 8 mg tablet,disintegrating 8 mg PO Q12H PRN (Reason: TAKE PRIOR TO CHEMO MED) Patient Comments: takes day of chemo before bed Rx Instructions: last filed February 2023 Beano 450 unit tablet,disintegrating 450 unit PO DAILY acetaminophen [Tylenol Extra Strength] 500 mg Tablet 500 - 1,000 mg PO UD PRN (Reason: Pain) Citrucel Sugar Free Powder 2 g PO QAM aspirin 81 mg Tablet,Delayed Release (Dr/Ec) 81 mg PO QAM Qty: 30 0RF famotidine 20 mg Tablet 20 mg PO QAM cholecalciferol (vitamin D3) [Vitamin D3] 125 mcg (5,000 unit) Tablet 125 mcg PO QAM dexamethasone 2 mg tablet 2 mg PO QAM docusate sodium 100 mg Tablet 100 mg PO DAILY PRN (Reason: Constipation) prochlorperazine maleate 10 mg tablet 10 mg PO Q6H PRN (Reason: Other) Referrals Referrals: PCP,NO [Physician] -
[2023-11-13 22:24] LABS: Appearance Urine Turbid (Clear); Bacteria Urine Automated 4+ (None Seen); Bilirubin Urine Negative (Negative); Blood Urine Negative (Negative); Color Urine Dark Yellow; Epithelial Cell Urine Auto 0-2 /hpf (0-2); Glucose Urine UA Negative (Negative); Ketones Urine Negative (Negative); Leukocyte Esterase Urine 1+ (Negative); Nitrite Urine Positive (Negative); Protein Urine 3+ (Negative); Specific Gravity Urine 1.019 (1.000-1.030); Urobilinogen Urine Negative (Negative); pH Urine >= 9.0 (4.5-7.5)
[2023-11-13 22:29] LABS: Basophils # (auto) 0.01 K/uL (0.00-0.20); Basophils % (auto) 0.1 %; Hemoglobin 11.9 g/dl (14.0-18.0); Immature Granulocytes # (auto) 0.09 K/uL (0.01-0.20); Immature Granulocytes % (auto) 0.8 %; Lymphocytes # (auto) 1.08 K/uL (1.20-3.40); Lymphocytes % (auto) 9.2 %; Mean Corpuscular Hemoglobin 35.3 pg (25.0-34.0); Mean Corpuscular Hgb Conc 33.1 g/dL (32.0-36.0); Mean Corpuscular Volume 106.8 fL (80.0-100.0); Mean Platelet Volume 9.7 fL (9.4-12.4); Monocytes # (auto) 0.79 K/uL (0.11-0.59); Monocytes % (auto) 6.7 %; Neutrophils # (auto) 9.75 K/uL (1.40-6.50); Neutrophils % (auto) 83.2 %; Nucleated RBC # (auto) 0.02 K/uL (0.00-0.12); Nucleated RBC % (auto) 0.2 %; Platelet Count 154 K/uL (130-400); RDW Coefficient of Variation 16.6 % (11.5-14.5); RDW Standard Deviation 65.7 fL (36.4-46.3); Red Blood Count 3.37 M/uL (4.70-6.10); White Blood Count 11.72 K/ul (4.8-10.8)
[2023-11-13 22:40] LABS: Albumin Level 3.7 gm/dl (3.4-5.0); BUN Creatinine Ratio 41.4 (10-20); Bilirubin Direct 0.1 mg/dl (0-0.2); Calcium 9.3 mg/dl (8.6-10.3); Creatinine Clr Calc Pharmacy 90.5 ml/min; Est GFR (African American) 104.8 ml/min; Est GFR (Non-African American) 90.4 ml/min; Magnesium 1.7 mg/dl (1.7-2.4); Potassium 3.8 mmol/L (3.5-5.1); Total Protein 6.3 gm/dl (6.0-8.3)
[2023-11-13 22:46] LABS: Troponin I High Sensitivity 13.2 pg/ml (0-20)
[2023-11-13 22:55] LABS: Thyroid Stimulating Hormone 1.827 uIu/ml (0.300-4.500)
[2023-11-13] MEDS: SODIUM CHLORIDE 0.9% 1,000 ML IV ONE (23:08)
--- NOTE | 2023-11-13 23:41 | History & Physical Report ---
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: (13) Hyperlipidemia: Plan Acute urinary retention/history coag negative UTI/BPH with LUTS/placement of Quiros catheter- Patient with gross hematuria following placement of Quiros catheter Follow urine culture and sensitivity Previous UTI on 07/04/23 with coag negative staph resistant to oxacillin NPO until more alert Daptomycin 450 mg IV daily Ceftriaxone 2 g IV daily NSS + KCl 20 mEq at 80 mL/h x 1 L Resume tamsulosin and dutasteride when able to take PO Consult urology Glioblastoma/status post craniotomy/Shipman's palsy/left-sided weakness- Stable examination as noted previous Pured diet when more alert to take in PO IV fluids as above reports that he does not like pured food, as he had gotten at [facility] prefers that he return to home upon discharge from the hospital Will need PT/OT. She reports that he had 2 sessions since he left [facility] 1- 1/2 weeks ago HTN- Hold, asa, amlodipine, lisinopril, metoprolol succinate Lopressor 5mg IV q4h as needed for systolic blood pressure greater than 160 if heart rate greater than 70 Hydralazine 10 mg IV every 4 hours as needed for systolic blood pressure greater than 160 if heart rate less than 7 Derm/Skin abrasions- Consult Wound Care History of Present Illness Chief Complaint: The patient presents to the emergency department with acute onset of severe suprapubic pain earlier this afternoon, and has had progressively more frequent falls, with ambulatory dysfunction and generalized weakness since having left rehab at [facility] about 1.5 weeks ago. Most of HPI and ROS are provided by his , who is present in the emergency room, due to residual effects of glioblastoma and his surgery, and Shipman's palsy Primary Care Provider: ELIZABET Pimentel The patient is a 77-year-old male with a past medical history including glioblastoma status post craniotomy, ambulatory dysfunction, dizziness, history of acute renal failure and hyponatremia, presence of Port-A-Cath, splenic infarction, left carotid stenosis, hypercholesterolemia, anemia and hyperlipidemia. The patient had been admitted most recently to [facility] from 10/12-10/15/2023, and then was discharged to [facility] rehab. He had left [facility] about 1-1/2 weeks ago, and his reports he has had significantly increased number of falls, and today developed severe suprapubic pain and worsening weakness. In the emergency department he had a Quiros catheter placed, and had significant improvement in suprapubic pressure at that time. He did have significant gross hematuria after Quiros was placed. His reports that he is somewhat lethargic at this point, but tends to become agitated when he starts feeling better. Allergies Allergy/AdvReac Type Severity Reaction Status Date / Time No Known Allergies Allergy Unknown Verified 11/14/23 00:34 Home Medications Medication Instructions Recorded Confirmed Type aspirin 81 mg tablet,delayed 81 mg PO QAM #30 tabs 02/17/22 11/14/23 Rx release cholecalciferol (vitamin D3) 125 125 mcg PO QAM 02/22/23 11/14/23 History mcg (5,000 unit) tablet (Vitamin D3) famotidine 20 mg tablet 20 mg PO QAM 02/22/23 11/14/23 History atorvastatin 40 mg tablet 40 mg PO HS #90 tabs 04/27/23 11/14/23 Rx dexamethasone 2 mg tablet 2 mg PO QAM 07/04/23 11/14/23 History dutasteride 0.5 mg capsule 0.5 mg PO QAM #90 caps 07/27/23 11/14/23 Rx (Avodart) metoprolol succinate 50 mg 50 mg PO QAM #90 tabs 08/07/23 11/14/23 Rx tablet,extended release 24 hr tniyg-p-krpfowcrrjkxb 450 unit 450 unit PO DAILY 10/09/23 11/14/23 History disintegrating tablet (Beano) lacosamide 100 mg tablet (Vimpat) 100 mg PO BID #180 tabs 11/03/23 11/14/23 Rx amlodipine 5 mg tablet 5 mg PO DAILY 11/14/23 11/14/23 History artificial tears with lanolin eye 1 applic OPR HS 11/14/23 11/14/23 History ointment lisinopril 10 mg tablet 10 mg PO DAILY 11/14/23 11/14/23 History tamsulosin 0.4 mg capsule 0.4 mg PO HS 11/14/23 11/14/23 History Past Med/Surg History Problem List (Updated 11/14/23 @ 03:32 by Enio Azar MD) BPH w urinary obs/LUTS Weakness of left arm "since having 2nd brain sx in 12/2022" Coagulase-negative staphylococcal infection Recurrent falls (Acute) Weakness (Acute) Acute urinary retention (Acute) Acute UTI (urinary tract infection) (Acute) Ambulatory dysfunction (Acute) Hypokalemia (Acute) Dizziness (Acute) Light headedness (Acute) Shipman's palsy Weakness on right side of face (Acute) Glioblastoma (Chronic) Port-A-Cath in place Port-A-Cath in place Insertion of Right Subclavian Access Port Allergic reaction to drug (Acute) Rash (Acute) New onset seizure (Acute) Hypomagnesemia Hypophosphatemia Hyperkalemia (Acute) Acute renal failure (Acute) Hyponatremia (Acute) Splenic infarction Pneumonitis hx Pneumonia (Acute) Acute hypoxemic respiratory failure (Acute) History of craniotomy 01/04/22 Hyponatremia Leukocytosis (Acute) Elevated troponin I level (Acute) Brain mass (Acute) Carotid stenosis, left Hypercholesteremia (Chronic) Anemia hx Hyperlipidemia Medical History Partial seizure Weakness of left arm "since having 2nd brain sx in 12/2022" Seizure hx-most recent 04/25/23, brought to [facility]>no reoccurences since starting medication; f/u [place] neuro CAD (coronary artery disease) inferior wall [place] 1989 s/p PTCA of the CX artery Diverticulosis Hypertension Prostate nodule Post-void dribbling Atherosclerotic heart disease of [place] coronary artery without angina pectoris History of COVID-19 03/2020- tested d/t testing positive, patient was asymptomatic BPH (benign prostatic hyperplasia) hx Carotid stenosis, left s/p Left CEA with Bovine Patch Angioplasty (2019) Myocardial Infarction 1989 GERD (gastroesophageal reflux disease) Surgical History History of anesthesia complications "During prior anesthetic on 01/22 patient was noted to have labile pressures during induction with propofol, first with extreme hypertension (systolic up to 196) and then hypotension requiring NE gtt" per 12/2022 [facility] anesthesia records Hx of transurethral resection of prostate 2017 History of craniotomy 01/2022, [facility], sx for glioblastoma 12/2022, [facility], 1. Redo Right Temporal craniotomy for resection of brain lesion; 2. Use of Stealth neuronavigation.; Dr. Macario Jordan at [facility] S/P bronchoscopy 02/2022 History of cataract surgery R/L S/P carotid endarterectomy Left CEA with Bovine Patch Angioplasty (2019) History of cystoscopy History of colonoscopy History of tooth extraction Hx of angioplasty 1989 S Family History Father , 86yo Lung cancer Myocardial infarction Hypertension Mother , 92yo Pacemaker Hypertension Sister H/O carotid endarterectomy Stroke following surgery; Hypertension Dyslipidemia Sister Dyslipidemia Hypertension Melanoma Sister Hypertension Denies family history of Ovarian cancer Prostate cancer Breast cancer Colorectal cancer Social History Smoking Status: Former smoker Tobacco Type: Cigarettes and Cigars Age Started Using Tobacco: 13; Age Quit Using Tobacco: 38; packs per day: 2; Cigarettes Per Day: [id number]; Second Hand Exposure: No; Do You Dip or Chew Tobacco: No; Hx Alcohol Use: No Hx Substance Use: No Preferred Language: Belizean Communication Ability: Effective Visual Impairment: No Limitations Hearing Ability: Use of Hearing Aid Conveyor Man Required: No Beliefs That Will Affect Care: None marital status: marital status details: Amrita Current Living Situation: Spouse current occupational status: retired How many Children do You have: 0 Feels Safe at Home: Yes Childhood Exposure to Second-Hand Smoke: Yes (father ) Diet: regular Diet Comment: attempts a healthy diet caffeine: Yes (3 cups daily ) during the past year weight has: remained stable Dental Care, Regularly: Yes Physical Activity Frequency: Daily Seatbelt Use: always Sunscreen Use: No Assistive Devices: Denture - Upper, Denture - Lower, Glasses, Hearing Aid - Bilateral and Walker Review of Systems Review of Systems: HPI and ROS are limited due to patient's inability to respond, and are provided by his , who is in attendance in the emergency department They deny chest pain, palpitations, shortness of breath, dyspnea on exertion, cough, lower extremity swelling, sore throat, fevers, chills, sweats, nausea, vomiting, diarrhea , constipation, abdominal pain, pelvic pain, blood in stool, loss of consciousness, rash focal weakness, numbness or tingling in right arm or leg, generalized arthralgias or myalgias, back or neck pain, or night sweats. The review of systems is otherwise negative other than for that already noted a malcolm, and at least 10 systems have been reviewed. Physical Exam Physical Exam: The patient is awake, lethargic and unresponsive, chronic left facial droop, lying in bed and in no acute distress. HEENT--PERRL, EOMI, mucous membranes and oropharynx dry. Neck--supple. No JVD. No bruits. Thyroid normal, trachea midline, no adenopathy. Heart--normal S1 and S2. No murmurs, rubs or gallops. Lungs--clear bilaterally, no respiratory distress, no accessory muscle use. Abdomen--normal bowel sounds and soft. Nontender. Nondistended, no hernias or masses, no organomegaly. Extremities--no cyanosis or clubbing. No edema. There are good distal pulses b/l. Dermatologic--multiple areas of skin abrasions and ecchymoses Neurologic--limited exam. Left weakness and facial weakness Rheumatologic--limited strength left side limited exam Psychiatric--lethargic, answers most of questions Results & Data Results & Data Vital Signs (Past 12 Hours) Vital Signs Temp Pulse Pulse Resp BP BP Pulse Ox 11/13/23 23:00 76 18 141/104 H 93 11/13/23 21:49 81 11/13/23 21:34 36.5 C 11/13/23 21:33 79 33 H 153/91 H 97 11/13/23 21:31 89 153/91 H 90 O2 Del Method 11/13/23 23:00 Room Air 11/13/23 21:49 11/13/23 21:34 11/13/23 21:33 Room Air 11/13/23 21:31 Room Air Laboratory Results Laboratory Results WBC 11.72 K/ul (4.8-10.8) H 11/13/23 22:07 RBC 3.37 M/uL (4.70-6.10) L 11/13/23 22:07 Hgb 11.9 g/dl (14.0-18.0) L 11/13/23 22:07 Hct 36.0 % (42.0-52.0) L 11/13/23 22:07 MCV 106.8 fL (80.0-100.0) H 11/13/23 22:07 MCH 35.3 pg (25.0-34.0) H 11/13/23 22:07 MCHC 33.1 g/dL (32.0-36.0) 11/13/23 22:07 RDW Std Deviation 65.7 fL (36.4-46.3) H 11/13/23 22:07 RDW Coeff of Nick 16.6 % (11.5-14.5) H 11/13/23 22:07 Plt Count 154 K/uL (130-400) 11/13/23 22:07 MPV 9.7 fL (9.4-12.4) 11/13/23 22:07 Immature Gran % (Auto) 0.8 % 11/13/23 22:07 Neut % (Auto) 83.2 % 11/13/23 22:07 Lymph % (Auto) 9.2 % 11/13/23 22:07 [place] % (Auto) 6.7 % 11/13/23 22:07 Eos % (Auto) 0.0 % 11/13/23 22:07 Baso % (Auto) 0.1 % 11/13/23 22:07 Neut # (Auto) 9.75 K/uL (1.40-6.50) H 11/13/23 22:07 Lymph # (Auto) 1.08 K/uL (1.20-3.40) L 11/13/23 22:07 [place] # (Auto) 0.79 K/uL (0.11-0.59) H 11/13/23 22:07 Eos # (Auto) 0.00 K/uL (0.00-0.50) 11/13/23 22:07 Baso # (Auto) 0.01 K/uL (0.00-0.20) 11/13/23 22:07 Immature Gran # (Auto) 0.09 K/uL (0.01-0.20) 11/13/23 22:07 Absolute Nucleated RBC 0.02 K/uL (0.00-0.12) 11/13/23 22:07 Nucleated RBC % (auto) 0.2 % 11/13/23 22:07 Sodium 140 mmol/L (136-145) 11/13/23 22:07 Potassium 3.8 mmol/L (3.5-5.1) 11/13/23 22:07 Chloride 108 mmol/L (98-107) H 11/13/23 22:07 Carbon Dioxide 22 mmol/L (21-32) 11/13/23 22:07 Anion Gap 10 (3-11) 11/13/23 22:07 BUN 29 mg/dl (6-23) H 11/13/23 22:07 Creatinine 0.70 mg/dl (0.6-1.4) 11/13/23 22:07 Est Cr Clr Drug Dosing 90.5 ml/min 11/13/23 22:07 Est GFR ( Amer) 104.8 ml/min 11/13/23 22:07 Est GFR (Non-Af Amer) 90.4 ml/min 11/13/23 22:07 BUN/Creatinine Ratio 41.4 (10-20) H 11/13/23 22:07 Glucose 101 mg/dl (70-99(Fasting)) H 11/13/23 22:07 Calcium 9.3 mg/dl (8.6-10.3) 11/13/23 22:07 Magnesium 1.7 mg/dl (1.7-2.4) 11/13/23 22:07 Total Bilirubin 1.0 mg/dl (0.2-1.0) 11/13/23 22:07 Direct Bilirubin 0.1 mg/dl (0-0.2) 11/13/23 22:07 AST 27 U/L (13-39) 11/13/23 22:07 ALT 38 U/L (7-52) 11/13/23 22:07 Alkaline Phosphatase 97 U/L (34-104) 11/13/23 22:07 Troponin I High Sens 13.2 pg/ml (0-20) 11/13/23 22:07 Total Protein 6.3 gm/dl (6.0-8.3) 11/13/23 22:07 Albumin 3.7 gm/dl (3.4-5.0) 11/13/23 22:07 Procalcitonin 0.05 ng/ml (0-0.5) 11/13/23 22:07 TSH 1.827 uIu/ml (0.300-4.500) 11/13/23 22:07 Urine Color Dark Yellow 11/13/23 21:56 Urine Appearance Turbid (Clear) A 11/13/23 21:56 Urine pH >= 9.0 (4.5-7.5) H 11/13/23 21:56 Ur Specific [place] 1.019 (1.000-1.030) 11/13/23 21:56 Urine Protein 3+ (Negative) H 11/13/23 21:56 Urine Glucose (UA) Negative (Negative) 11/13/23 21:56 Urine Ketones Negative (Negative) 11/13/23 21:56 Urine Blood Negative (Negative) 11/13/23 21:56 Urine Nitrite Positive (Negative) A 11/13/23 21:56 Urine Bilirubin Negative (Negative) 11/13/23 21:56 Urine Urobilinogen Negative (Negative) 11/13/23 21:56 Ur Leukocyte Esterase 1+ (Negative) H 11/13/23 21:56 Urine WBC (Auto) 6-10 /hpf (0-5) H 11/13/23 21:56 Urine RBC (Auto) 6-10 /hpf (0-2) H 11/13/23 21:56 U Hyaline Cast (Auto) 3-5 /lpf (0-2) H 11/13/23 21:56 U Epithel Cells (Auto) 0-2 /hpf (0-2) 11/13/23 21:56 Urine Bacteria (Auto) 4+ (None Seen) H 11/13/23 21:56 Code Status & VTE Plan Code Status Full code, as discussed with his VTE Prophylaxis Plan VTE Prophylaxis will be ordered: Yes PG Care Time/CCT Total # of Minutes Spent Total Time Spent with Patient: Total time spent is greater than 50% in coordination of care (as documented) at patient's floor/unit and/or counseling patient: Coding Level of Care Code 50739 INT INP/OBS CARE 3/75MIN Diagnoses Acute UTI (urinary tract infection) N39.0 Acute urinary retention R33.8 Coagulase-negative staphylococcal infection B95.7 BPH w urinary obs/LUTS N40.1; N13.8 Recurrent falls R29.6 Weakness R53.1 Ambulatory dysfunction R26.2 Glioblastoma C71.9 History of craniotomy Z98.890 Hypomagnesemia E83.42 Weakness of left arm R29.898 Shipman's palsy G51.0 Hyperlipidemia E78.5
[2023-11-13] MEDS: DAPTOmycin 450 MG in SYRINGE 0 ML IV STA (23:49)
[2023-11-13] MEDS: cefTRIAXone SODIUM 2,000 MG/50 ML BAG IV STA (23:52)
[2023-11-14] MEDS ORDERED: ONDANSETRON INJ 2 MG/ML 2 ML VIAL IV PRN (00:56)
[2023-11-14] MEDS: NSS + 20MEQ KCL 20 MEQ/1,000 ML BAG IV SCH (01:49)
[2023-11-14] MEDS: ACETAMINOPHEN 325 MG TAB PO PRN (02:04)
[2023-11-14] MEDS ORDERED: METOPROLOL TARTRATE 1 MG/ML VIAL IV PRN (03:49)
[2023-11-14] MEDS: HEPARIN 100 UNIT/ML 5ML FLUSH FLUSH PRN (06:03)
[2023-11-14 06:49] LABS: Basophils # (auto) 0.01 K/uL (0.00-0.20); Basophils % (auto) 0.1 %; Eosinophils # (auto) 0.01 K/uL (0.00-0.50); Eosinophils % (auto) 0.1 %; Hematocrit (blood only) 31.7 % (42.0-52.0); Hemoglobin 10.8 g/dl (14.0-18.0); Immature Granulocytes # (auto) 0.06 K/uL (0.01-0.20); Immature Granulocytes % (auto) 0.6 %; Lymphocytes # (auto) 1.38 K/uL (1.20-3.40); Lymphocytes % (auto) 13.3 %; Mean Corpuscular Hemoglobin 36.1 pg (25.0-34.0); Mean Corpuscular Hgb Conc 34.1 g/dL (32.0-36.0); Monocytes # (auto) 0.77 K/uL (0.11-0.59); Monocytes % (auto) 7.4 %; Neutrophils # (auto) 8.18 K/uL (1.40-6.50); Neutrophils % (auto) 78.5 %; Platelet Count 136 K/uL (130-400); RDW Coefficient of Variation 16.2 % (11.5-14.5); RDW Standard Deviation 64.4 fL (36.4-46.3); Red Blood Count 2.99 M/uL (4.70-6.10); White Blood Count 10.41 K/ul (4.8-10.8)
[2023-11-14 07:19] LABS: Albumin Level 3.3 gm/dl (3.4-5.0); BUN Creatinine Ratio 41.7 (10-20); Calcium 8.3 mg/dl (8.6-10.3); Creatinine Clr Calc Pharmacy 100.6 ml/min; Est GFR (African American) 111.6 ml/min; Est GFR (Non-African American) 96.3 ml/min; Magnesium 1.6 mg/dl (1.7-2.4); Phosphorus 3.1 mg/dl (2.5-4.9); Potassium 3.3 mmol/L (3.5-5.1)
--- NOTE | 2023-11-14 09:08 | Urology Consultation ---
Date of Consultation November 14, 2023 Assessment & Plan (1) BPH w urinary obs/LUTS: (2) Acute urinary retention: (3) Acute UTI (urinary tract infection): 77-year-old male admitted for acute urinary retention, UTI and hematuria Patient afebrile, hemodynamically stable Urinalysis suspicious for infection Urine culture is pending Recommend continue broad-spectrum antibiotics and narrow per sensitivity data when available Continue with tamsulosin and dutasteride as previously prescribed Recommend maintain catheter for 7-10 days for management of urinary retention Hematuria started after catheter placement and likely secondary to UTI/catheter placement/rapid decompression of bladder Hematuria appears to be clearing, continue to monitor Okay to gently hand irrigate catheter as needed for catheter obstruction Will start Gemtesa 75 mg once daily for bladder spasms Continue supportive care, antibiotics and medical management per hospital medicine service Will arrange outpatient follow-up with our service for ongoing management will follow History of Present Illness Attending Physician: Romain Marquez MD History of Present Illness This is a 77-year-old male with history of glioblastoma and recurrent hospitalizations for ambulatory dysfunction and weakness who presented to the emergency department on 11/13/2023 for evaluation of severe suprapubic pain, dysuria and inability to urinate. On arrival to ED, he was afebrile with a stable. Lab work showed leukocytosis of 11.2, hemoglobin 11.9, creatinine 0.70. Urinalysis demonstrated turbid urine, positive nitrates, 1+ LE, 6-10 WBC, 6-10 RBC and 4+ bacteria. Quiros catheter was placed in the emergency department and he developed gross hematuria following catheter placement. He was treated with IV fluids, daptomycin and ceftriaxone in the emergency department. Patient seen and examined at bedside this morning. He is awake, sitting up in bed eating breakfast. He is generally tolerating Quiros catheter. Notes occasional suprapubic discomfort and discomfort at catheter insertion site. He has been on Tamsulosin. Denies hematuria prior to catheter. Allergies Allergy/AdvReac Type Severity Reaction Status Date / Time No Known Allergies Allergy Unknown Verified 11/14/23 00:34 Home Medications Medication Instructions Recorded Confirmed Type aspirin 81 mg tablet,delayed 81 mg PO QAM #30 tabs 02/17/22 11/14/23 Rx release cholecalciferol (vitamin D3) 125 125 mcg PO QAM 02/22/23 11/14/23 History mcg (5,000 unit) tablet (Vitamin D3) famotidine 20 mg tablet 20 mg PO QAM 02/22/23 11/14/23 History atorvastatin 40 mg tablet 40 mg PO HS #90 tabs 04/27/23 11/14/23 Rx dexamethasone 2 mg tablet 2 mg PO QAM 07/04/23 11/14/23 History dutasteride 0.5 mg capsule 0.5 mg PO QAM #90 caps 07/27/23 11/14/23 Rx (Avodart) metoprolol succinate 50 mg 50 mg PO QAM #90 tabs 08/07/23 11/14/23 Rx tablet,extended release 24 hr ufxip-u-wqrdobvvxinmy 450 unit 450 unit PO DAILY 10/09/23 11/14/23 History disintegrating tablet (Beano) lacosamide 100 mg tablet (Vimpat) 100 mg PO BID #180 tabs 11/03/23 11/14/23 Rx amlodipine 5 mg tablet 5 mg PO DAILY 11/14/23 11/14/23 History artificial tears with lanolin eye 1 applic OPR HS 11/14/23 11/14/23 History ointment lisinopril 10 mg tablet 10 mg PO DAILY 11/14/23 11/14/23 History tamsulosin 0.4 mg capsule 0.4 mg PO HS 11/14/23 11/14/23 History Patient History Medical History Partial seizure Seizure hx-most recent 04/25/23, brought to [facility]>no reoccurences since starting medication; f/u tx neuro Diverticulosis Hypertension Prostate nodule Post-void dribbling Atherosclerotic heart disease of [place] coronary artery without angina pectoris History of COVID-19 03/2020- tested d/t testing positive, patient was asymptomatic BPH (benign prostatic hyperplasia) hx Carotid stenosis, left s/p Left CEA with Bovine Patch Angioplasty (2019) Myocardial Infarction 1989 GERD (gastroesophageal reflux disease) Surgical History History of anesthesia complications "During prior anesthetic on 01/22 patient was noted to have labile pressures during induction with propofol, first with extreme hypertension (systolic up to 196) and then hypotension requiring NE gtt" per 12/2022 [facility] anesthesia records Hx of transurethral resection of prostate 2017 History of craniotomy 01/2022, [facility], sx for glioblastoma 12/2022, [facility], 1. Redo Right Temporal craniotomy for resection of brain lesion; 2. Use of Stealth neuronavigation.; Dr. Macario Jordan at [facility] S/P bronchoscopy 02/2022 History of cataract surgery R/L S/P carotid endarterectomy Left CEA with Bovine Patch Angioplasty (2019) History of cystoscopy History of colonoscopy History of tooth extraction Hx of angioplasty 1989 [facility] Family History Father , 86yo Lung cancer Myocardial infarction Hypertension Mother , 92yo Pacemaker Hypertension Sister H/O carotid endarterectomy Stroke following surgery; Hypertension Dyslipidemia Sister Dyslipidemia Hypertension Melanoma Sister Hypertension Denies family history of Ovarian cancer Prostate cancer Breast cancer Colorectal cancer Social History Smoking Status: Former smoker Tobacco Type: Cigarettes and Cigars Age Started Using Tobacco: 13; Age Quit Using Tobacco: 38; packs per day: 2; Cigarettes Per Day: [id number]; Second Hand Exposure: No; Do You Dip or Chew Tobacco: No; Hx Alcohol Use: No Hx Substance Use: No Preferred Language: Sinhala Communication Ability: Effective Visual Impairment: No Limitations Hearing Ability: Use of Hearing Aid Door To Door Salesperson Required: No Beliefs That Will Affect Care: None marital status: marital status details: Amrita Current Living Situation: Spouse current occupational status: retired How many Children do You have: 0 Feels Safe at Home: Yes Childhood Exposure to Second-Hand Smoke: Yes (father ) Diet: regular Diet Comment: attempts a healthy diet caffeine: Yes (3 cups daily ) during the past year weight has: remained stable Dental Care, Regularly: Yes Physical Activity Frequency: Daily Seatbelt Use: always Sunscreen Use: No Assistive Devices: Denture - Upper, Denture - Lower, Glasses, Hearing Aid - Bilateral and Walker Review of Systems Review of Systems: All systems reviewed & are unremarkable except as noted in HPI & below Physical Exam Constitutional: well developed and well nourished; no acute distress Respiratory: normal respiratory effort; no respiratory distress and no labored breathing Gastrointestinal (Abdomen): Inspection/Auscultation: abdomen normal to inspection Musculoskeletal: Head/Neck/Chest: normocephalic Neurologic: moves all extremities and awake Psychiatric: Orientation: alert and oriented x 3 Genitourinary: Quiros draining clear yellow urine with some bloody sediment in tubing Results & Data Vital Signs (Past 12 Hours) Vital Signs Temp Pulse Pulse Pulse Pulse Resp BP 11/14/23 07:27 36.8 C 70 16 11/14/23 01:00 37.4 C 76 18 11/14/23 00:56 37.4 C 76 18 11/13/23 23:42 74 20 11/13/23 23:00 76 18 11/13/23 21:49 81 11/13/23 21:34 36.5 C 11/13/23 21:33 79 33 H 11/13/23 21:31 89 153/91 H BP BP Pulse Ox O2 Del Method 11/14/23 07:27 159/77 H 98 Room Air 11/14/23 01:00 157/79 H 96 Room Air 11/14/23 00:56 157/79 H 96 Room Air 11/13/23 23:42 136/85 97 Room Air 11/13/23 23:00 141/104 H 93 Room Air 11/13/23 21:49 11/13/23 21:34 11/13/23 21:33 153/91 H 97 Room Air 11/13/23 21:31 90 Room Air PG Care Time/CCT Total # of Minutes Spent Total Time Spent with Patient: Total time spent is greater than 50% in coordination of care (as documented) at patient's floor/unit and/or counseling patient: Coding Level of Care Code 84879 INT INP/OBS CARE 2/55MIN Diagnoses BPH w urinary obs/LUTS N40.1; N13.8 Acute urinary retention R33.8 Acute UTI (urinary tract infection) N39.0
[2023-11-14] MEDS: VIBEGRON 75 MG TAB PO SCH (09:38)
[2023-11-14] MEDS: POTASSIUM CHLORIDE CRTAB 20 MEQ TABCR PO SCH (09:38)
[2023-11-14] MEDS: MAGNESIUM SULFATE / D5W 1 GM/100 ML BAG IV SCH (09:44)
--- NOTE | 2023-11-14 10:36 | Electrocardiogram Report ---
Test Reason : Blood Pressure : */* mmHG Vent. Rate : 76 BPM Atrial Rate : 76 BPM P-R Int : 158 ms QRS Dur : 90 ms QT Int : 406 ms P-R-T Axes : 25 -1 52 degrees QTcB Int : 456 ms Normal sinus rhythm Normal ECG When compared with ECG of 16-Oct-2023 04:15, No significant change was found Confirmed by Khadar García ([id number]) on 11/14/2023 10:36:09 AM Referred By: REFERRED SELF Confirmed By: Khadar García
[2023-11-14] MEDS: dexAMETHasone 4 MG in SYRINGE 0 ML IV SCH (11:54)
[2023-11-14] MEDS: PHENAZOPYRIDINE HCL 200 MG TAB PO STA (11:54)
--- NOTE | 2023-11-14 16:34 | Hospitalist Progress Note ---
Date of Service November 14, 2023 Assessment & Plan (1) Acute UTI (urinary tract infection): Plan: has had coag neg staph UTIs in the recent past thus, in addition to rocephin, will add daptomycin IV await culture cont IV fluids cont steroids but give stress dose (usually on 2mg of dexamethasone daily; will double to 4mg) for pain - vibegron daily pyridium prn tylenol prn (2) Acute urinary retention: Plan: 2nd to BPH, UTI, etc. ordered CT head to ensure no increase in size of his tumor, development of intracerebral edema, etc - any [employer] factor that could be contributing to urinary retention cont brown resume flomax when able appreciate urology assistance cont IV abx (3) BPH w urinary obs/LUTS: Plan: resume flomax tomorrow if BPs are stable resume dutasteride or equivalent when able brown treat UTI (4) Hypokalemia: Plan: 2nd to hypomagnesemia? 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 (7) Hypomagnesemia: Plan: uncertain etiology but will replace IV and repeat level am (8) Seizure: Plan: cont lacosamide BID (9) Macrocytosis: Plan: check B12/folate levels am TSH wnl Plan updated at bedside PT, OT juno Admission and Anticipated Discharge Date Admission Date: November 13, 2023 Subjective only complaint is that of bladder pain and what sounds like spasm at bedside reports her at times becomes confused no abd pain but back hurts some no headache did eat lunch earlier today some generalized weakness Review of Systems Review of Systems: gen - no fevers cv - no chest pain pulm - no dyspnea GI - no abd pain Physical Exam Physical Exam: gen - NAD, comfortable face - Shipman's Palsy on right mouth - MM mildly dry neck - no JVD heart - RRR, s1 s2, no murmur lungs - CTA b/l back - no flank tenderness b/l abd - soft NT ND BS+ ext - no edema, pulses 2+ b/l - brown in place, mild hematuria Results & Data Results & Data Vital Signs (Past 12 Hours) Vital Signs Temp Pulse Resp BP Pulse Ox O2 Del Method 11/14/23 14:41 36.6 C 74 16 153/78 H 97 Room Air 11/14/23 07:27 36.8 C 70 16 159/77 H 98 Room Air Laboratory Results Laboratory Results - last 24 hr 11/13/23 11/14/23 22:07 06:05 WBC 10.41 RBC 2.99 L Hgb 10.8 L Hct 31.7 L MCV 106.0 H MCH 36.1 H MCHC 34.1 RDW Std Deviation 64.4 H RDW Coeff of Nick 16.2 H Plt Count 136 MPV 10.0 Immature Gran % (Auto) 0.6 Neut % (Auto) 78.5 Lymph % (Auto) 13.3 [place] % (Auto) 7.4 Eos % (Auto) 0.1 Baso % (Auto) 0.1 Neut # (Auto) 8.18 H Lymph # (Auto) 1.38 [place] # (Auto) 0.77 H Eos # (Auto) 0.01 Baso # (Auto) 0.01 Immature Gran # (Auto) 0.06 Sodium 142 Potassium 3.3 L Chloride 110 H Carbon Dioxide 24 Anion Gap 8 BUN 25 H Creatinine 0.60 Est Cr Clr Drug Dosing 100.6 Est GFR ( Amer) 111.6 Est GFR (Non-Af Amer) 96.3 BUN/Creatinine Ratio 41.7 H Glucose 81 Calcium 8.3 L Phosphorus 3.1 Magnesium 1.6 L Albumin 3.3 L Procalcitonin 0.05 Diagnostic Findings Microbiology 11/13/23 21:56 Urine,Clean Catch Urine Culture - Preliminary Pin-point growth present, reincubating. PG Care Time/CCT Total # of Minutes Spent Total Time Spent with Patient: Total time spent is greater than 50% in coordination of care (as documented) at patient's floor/unit and/or counseling patient: Coding Level of Care Code 34735 SUB INP/OBS CARE 3/50MIN Diagnoses Acute UTI (urinary tract infection) N39.0 Acute urinary retention R33.8 BPH w urinary obs/LUTS N40.1; N13.8 Hypokalemia E87.6 Shipman's palsy G51.0 Glioblastoma C71.9 Hypomagnesemia E83.42 Seizure R56.9 Macrocytosis D75.89
--- NOTE | 2023-11-14 19:17 | CT Scan Report ---
CT head/brain wo con CLINICAL HISTORY: known GBM, weakness, interval change Technique: Contiguous axial CT images of the head were acquired from the base of the skull to the eunice mukesh without intravenous contrast administration. Images were viewed in brain, subdural and [facility]. Automated dose lowering techniques and/or adjustment according to patient size were utilized for this exam. Comparison: Comparison is made to CT head 10/12/2023 Findings: No acute changes are seen. Again demonstrated is a lesion in the right temporal operative bed with as sociated postsurgical changes as well as chronic volume loss. Imaged portions of the paranasal sinuses and mastoid air cells are clear. The orbits appear normal. There are no acute fractures of the calvaria or scalp swelling. Impression: Redemonstration of right temporal mass lesion and postsurgical changes without acute abnormalities. ACT 112: Negative or not required by law. Electronically signed by: Ramiro Goodman M.D. 11/14/2023 7:16 PM
[2023-11-14] MEDS: PHENAZOPYRIDINE HCL 200 MG TAB PO PRN (20:52)
[2023-11-14] MEDS: cefTRIAXone SODIUM 2,000 MG/50 ML BAG IV SCH (20:55)
[2023-11-14] MEDS: DAPTOmycin 425 MG in SYRINGE 0 ML IV SCH (23:00)
[2023-11-14] MEDS: IBUPROFEN 600 MG TAB PO ONE (23:35)
[2023-11-15 07:18] LABS: Albumin Level 3.3 gm/dl (3.4-5.0); Calcium 8.3 mg/dl (8.6-10.3); Creatinine Clr Calc Pharmacy 100.6 ml/min; Est GFR (African American) 111.6 ml/min; Est GFR (Non-African American) 96.3 ml/min; Magnesium 1.8 mg/dl (1.7-2.4); Phosphorus 2.1 mg/dl (2.5-4.9); Potassium 3.8 mmol/L (3.5-5.1)
[2023-11-15 07:42] LABS: Folate (Folic Acid),Ser orPlas 11.21 ng/ml (>5.38)
[2023-11-15] MEDS: POT PHOSPHATE MONOBASIC W/ SOD TAB PO SCH (08:59)
[2023-11-15] MEDS: PHENAZOPYRIDINE HCL 200 MG TAB PO SCH (08:59)
--- NOTE | 2023-11-15 09:31 | Urology Progress Note ---
Date of Service November 15, 2023 Assessment & Plan (1) BPH w urinary obs/LUTS: (2) Acute urinary retention: (3) Acute UTI (urinary tract infection): Plan: 77-year-old male admitted for acute urinary retention, UTI and hematuria Patient afebrile, hemodynamically stable Labs todaycreatinine 0.60, WBC 10.41, hemoglobin 10.8 Urinalysis was suspicious for infection Urine culture prelim with pin point growth Recommend continue broad-spectrum antibiotics and narrow per sensitivity data when available Continue with tamsulosin and dutasteride as previously prescribed Recommend maintain catheter for 7-10 days for management of urinary retention Okay to gently hand irrigate catheter as needed for catheter obstruction Continue Gemtesa and Pyridium for bladder spasms/discomfort Continue supportive care, antibiotics and medical management per hospital medicine service Will arrange outpatient follow-up with our service for ongoing management will follow peripherally, please contact our service with any questions or concerns Admission and Anticipated Discharge Date Admission Date: November 13, 2023 Subjective Patient seen and examined at bedside this morning. No issues with Quiros catheter overnight. He reports intermittent discomfort from the catheter. Denies nausea, vomiting, fever or chills. Review of Systems Constitutional: as per Subjective / HPI Genitourinary: + as per Subjective / HPI Physical Exam Constitutional: no acute distress Respiratory: no respiratory distress and no labored breathing Musculoskeletal: Head/Neck/Chest: normocephalic Neurologic: awake Psychiatric: Orientation: alert and oriented x 3 Genitourinary: Quiros patent and draining orange urine Results & Data Vital Signs (Past 12 Hours) Vital Signs Temp Pulse Resp BP Pulse Ox O2 Del Method 11/15/23 07:43 35.8 C L 84 16 138/100 96 Room Air PG Care Time/CCT Total # of Minutes Spent Total Time Spent with Patient: Total time spent is greater than 50% in coordination of care (as documented) at patient's floor/unit and/or counseling patient: Coding Level of Care Code 91283 SUB INP/OBS CARE /25MIN Diagnoses BPH w urinary obs/LUTS N40.1; N13.8 Acute urinary retention R33.8 Acute UTI (urinary tract infection) N39.0
--- NOTE | 2023-11-15 10:55 | Hospitalist Progress Note ---
Date of Service November 15, 2023 Assessment & Plan (1) Seizure: Plan: breakthrough seizure this am due to not receiving lacosamide since admission, stress of illness, etc. CT head done 11/13 without acute findings and stable right temporal GBM and volume loss; no increased edema on that CT remains on IV dexamethasone 4mg daily give lacosamide 100mg IV NOW prior to this dose I obtained a level (1/2 life is 13 hours) elevated lactic acid level likely due to his seizure can't rule out sepsis contributing but much less likely acidosis should improve with time & supportive care IV ativan ordered for prn use if another seizure occurs (2) Acute UTI (urinary tract infection): Plan: culture pending cont rocephin cont daptomycin resume IV fluids - LR at 100cc/hr due to acidosis cont steroids but give stress dose (usually on 2mg of dexamethasone daily; continue double dose at 4mg) for pain - vibegron daily pyridium TID scheduled (when awake enough to take) (3) Acute urinary retention: Plan: 2nd to BPH, UTI, etc. 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 other? (10) Lactic acidosis: Plan: 2nd to seizure can't rule out sepsis but less likely should improve with supportive care checked procal - negative is already on rocephin/daptomycin for UTI repeat lactate in 3-4 hours LR hydration (11) CAD (coronary artery disease): Plan: doubt today's event was due to ischemia/CAD will check a troponin with next blood draw EKG w/o ischemic changes (12) Acute metabolic encephalopathy: Plan: 2nd to seizure, acidosis, etc should improve as the day goes on with supportive care and as his post-ictal state resolves (13) Acute respiratory distress: Plan: 2nd to seizure, acidosis, etc BIPAP for now while lethargic/somnolent/post-ictal can likely remove later in the day Plan left message for pt's just after 11am updating her with today's events will update her once she arrives DVT proph - add heparin 5000 TID high risk of VTE total critical care time - 80 minutes - attending marielle reich, managing post- ictal state, ordering/reviewing/responding to labs, etc. Admission and Anticipated Discharge Date Admission Date: November 13, 2023 Subjective code rachana called overhead this am I responded immediately to the marielle reich upon arrival the patient was somnolent, snoring, and tachypneic by report he had had a brief, 1-2 minute long episode of seizure activity initial vitals - SBP >150, tachy on monitor (sinus tach vs a.fib vs other), BSG 122, O2 sats 97% in room air a review of med list shows he has not received his lacosamide since admission he had been awake prior to the seizure - had declined doing PT this am ate breakfast per nursing staff no vomiting initial exam - gen - snoring, tachypneic, mild retractions, not following commands heart - tachy, irregular, s1 s2 lungs - course BS b/l, tachypneic abd - soft NT ND ext - pulses 2+ b/l patient moved to room 111 in ICU lacosamide IV ordered STAT from pharmacy EKG - my read - sinus tach, no a.fib or SVT labs/cxr ordered left message for pt's at 1105 on her voicemail Review of Systems Review of Systems: Unobtainable due to reduced consciousness Physical Exam Physical Exam: gen - somnolent, tachypneic, snoring face - Shipman's Palsy on right neck - no JVD heart - tachy, s1 s2, no murmur lungs - course BS b/l abd - soft NT ND BS+ ext - no edema, pulses 2+ b/l - brown in place, mild hematuria neuro - pulling at BIPAP mask with arms, moving his legs spontaneously Results & Data Results & Data Vital Signs (Past 12 Hours) Vital Signs Temp Pulse Resp BP Pulse Ox O2 Del Method 11/15/23 07:43 35.8 C L 84 16 138/100 96 Room Air Laboratory Results Laboratory Results - last 24 hr 11/15/23 11/15/23 11/15/23 06:16 10:28 10:49 WBC RBC Hgb POC Hgb 11.6 L Hct POC Hct 34 L MCV MCH MCHC RDW Std Deviation RDW Coeff of Nick Plt Count MPV Immature Gran % (Auto) Neut % (Auto) Lymph % (Auto) [place] % (Auto) Eos % (Auto) Baso % (Auto) Neut # (Auto) Lymph # (Auto) [place] # (Auto) Eos # (Auto) Baso # (Auto) Immature Gran # (Auto) Absolute Nucleated RBC Nucleated RBC % (auto) Polychromasia Anisocytosis Echinocytes Sample Site L Brachial POC pH 7.29 L POC pCO2 24 L POC pO2 183 H POC HCO3 11 L POC Total CO2 12 L POC Base Excess -15.0 L ABG pH (Temp Correct) 7.291 L ABG pCO2 (Temp Corrct 24 L POC ABG pO2 at Pt Temp 182 POC ABG O2 Sat 100.0 H Artur Test Pass O2 Delivery Device BIPAP POC O2 Rate 18 POC FiO2 30 IPAP 10 POC Sodium 137 Sodium 141 POC Potassium 3.4 Potassium 3.8 Chloride 111 H Carbon Dioxide 24 Anion Gap 6 BUN 18 Creatinine 0.60 Est Cr Clr Drug Dosing 100.6 Est GFR ( Amer) 111.6 Est GFR (Non-Af Amer) 96.3 BUN/Creatinine Ratio 30.0 H Glucose 80 POC Glucose 122 H Lactate Calcium 8.3 L Phosphorus 2.1 L D Magnesium 1.8 Albumin 3.3 L Vitamin B12 554 Folate 11.21 Procalcitonin Lacosamide Level 11/15/23 11/15/23 11/15/23 10:53 11:02 11:05 WBC 11.96 H RBC 3.32 L Hgb 11.9 L POC Hgb Hct 36.6 L POC Hct MCV 110.2 H MCH 35.8 H MCHC 32.5 RDW Std Deviation 68.1 H RDW Coeff of Nick 16.5 H Plt Count 164 MPV 9.7 Immature Gran % (Auto) 0.7 Neut % (Auto) 74.5 Lymph % (Auto) 18.6 [place] % (Auto) 5.5 Eos % (Auto) 0.4 Baso % (Auto) 0.3 Neut # (Auto) 8.91 H Lymph # (Auto) 2.23 [place] # (Auto) 0.66 H Eos # (Auto) 0.05 Baso # (Auto) 0.03 Immature Gran # (Auto) 0.08 Absolute Nucleated RBC 0.02 Nucleated RBC % (auto) 0.2 Polychromasia 1+ Anisocytosis Present Echinocytes 1+ Sample Site POC pH POC pCO2 POC pO2 POC HCO3 POC Total CO2 POC Base Excess ABG pH (Temp Correct) ABG pCO2 (Temp Corrct POC ABG pO2 at Pt Temp POC ABG O2 Sat Artur Test O2 Delivery Device POC O2 Rate POC FiO2 IPAP POC Sodium Sodium POC Potassium Potassium Chloride Carbon Dioxide Anion Gap BUN Creatinine Est Cr Clr Drug Dosing Est GFR ( Amer) Est GFR (Non-Af Amer) BUN/Creatinine Ratio Glucose POC Glucose Lactate Cancelled 6.1 H* Calcium Phosphorus Magnesium Albumin Vitamin B12 Folate Procalcitonin 0.07 Lacosamide Level Pending Head CT 11/14/23 16:33 CT head/brain wo con CLINICAL HISTORY: known GBM, weakness, interval change Technique: Contiguous axial CT images of the head were acquired from the base of the skull to the vertex without intravenous contrast administration. Images were viewed in brain, subdural and bone windows. Automated dose lowering techniques and/or adjustment according to patient size were utilized for this exam. Comparison: Comparison is made to CT head 10/12/2023 Findings: No acute changes are seen. Again demonstrated is a lesion in the right temporal operative bed with associated postsurgical changes as well as chronic volume loss. Imaged portions of the paranasal sinuses and mastoid air cells are clear. The orbits appear normal. There are no acute fractures of the calvaria or scalp swelling. Impression: Redemonstration of right temporal mass lesion and postsurgical changes without acute abnormalities. ACT 112: Negative or not required by law. Electronically signed by: Ramiro Goodman M.D. 11/14/2023 7:16 PM EKG - my reading - sinus tachycardia, no ST changes PG Care Time/CCT Total # of Minutes Spent Total Time Spent with Patient: Total time spent is greater than 50% in coordination of care (as documented) at patient's floor/unit and/or counseling patient: Critical Care Time: Yes Total Critical Care Time: 80 Coding Level of Care Code None Diagnoses Seizure R56.9 Acute UTI (urinary tract infection) N39.0 Acute urinary retention R33.8 BPH w urinary obs/LUTS N40.1; N13.8 Hypokalemia E87.6 Shipman's palsy G51.0 Glioblastoma C71.9 Hypomagnesemia E83.42 Macrocytosis D75.89 Lactic acidosis E87.20 Coronary artery disease involving [place] heart without angina pectoris, unspecified vessel or lesion type I25.10 Coronary Disease-Associated Artery/Lesion type: unspecified vessel or lesion type [place] vs. transplanted heart: [place] heart Associated angina: without angina Acute metabolic encephalopathy G93.41 Acute respiratory distress R06.03 Additional Codes Critical Care Time - Critical Care Time: Yes ([id number]) (11) CAD (coronary artery disease) Coronary Disease-Associated Artery/Lesion type: unspecified vessel or lesion type [place] vs. transplanted heart: [place] heart Associated angina: without angina Qualified Code(s): I25.10 - Atherosclerotic heart disease of [place] coronary artery without angina pectoris
[2023-11-15 11:02] LABS: iSTAT Allen Test Pass; iSTAT Art Bld Gas pCO2 Correct 24 mmHg (35-46); iSTAT Art Bld Gas pH Corrected 7.291 (7.35-7.45); iSTAT Arterial Blood Gas HCO3 11 meg/L (19-24); iSTAT Arterial Blood Gas pCO2 24 mmHg (35-46); iSTAT Arterial Blood Gas pH 7.29 (7.35-7.45); iSTAT Arterial Blood Gas pO2 183 mmHg (80-95); iSTAT Arterial Blood Gas pO2 C 182; iSTAT Carbon Dioxide 12 mmol/L (24-31); iSTAT FiO2 30 %; iSTAT Hematocrit 34 % (42-52); iSTAT Hemoglobin 11.6 g/dl (14.0-18.0); iSTAT Potassium 3.4 mmol/L (3.3-5.0); iSTAT Site L Brachial; iSTAT Sodium 137 mmol/L (135-144)
[2023-11-15 11:21] LABS: Basophils # (auto) 0.03 K/uL (0.00-0.20); Basophils % (auto) 0.3 %; Eosinophils # (auto) 0.05 K/uL (0.00-0.50); Eosinophils % (auto) 0.4 %; Hematocrit (blood only) 36.6 % (42.0-52.0); Hemoglobin 11.9 g/dl (14.0-18.0); Immature Granulocytes # (auto) 0.08 K/uL (0.01-0.20); Immature Granulocytes % (auto) 0.7 %; Lymphocytes # (auto) 2.23 K/uL (1.20-3.40); Lymphocytes % (auto) 18.6 %; Mean Corpuscular Hemoglobin 35.8 pg (25.0-34.0); Mean Corpuscular Hgb Conc 32.5 g/dL (32.0-36.0); Mean Corpuscular Volume 110.2 fL (80.0-100.0); Mean Platelet Volume 9.7 fL (9.4-12.4); Monocytes # (auto) 0.66 K/uL (0.11-0.59); Monocytes % (auto) 5.5 %; Neutrophils # (auto) 8.91 K/uL (1.40-6.50); Neutrophils % (auto) 74.5 %; Nucleated RBC # (auto) 0.02 K/uL (0.00-0.12); Nucleated RBC % (auto) 0.2 %; Platelet Count 164 K/uL (130-400); RDW Coefficient of Variation 16.5 % (11.5-14.5); RDW Standard Deviation 68.1 fL (36.4-46.3); Red Blood Count 3.32 M/uL (4.70-6.10); White Blood Count 11.96 K/ul (4.8-10.8)
[2023-11-15 11:46] LABS: Anisocytosis Present; Echinocytes 1+; Polychromasia 1+
[2023-11-15] MEDS: LIDOCAINE 2% JELLY 5 ML TUBE EXT ONE (11:56)
[2023-11-15] MEDS: LACOSAMIDE 100 MG in SODIUM CHLORIDE 0.9% 50 ML IV SCH (11:56)
[2023-11-15] MEDS: LACTATED RINGER'S 1,000 ML IV SCH (11:56)
--- NOTE | 2023-11-15 13:40 | Electrocardiogram Report ---
Test Reason : Blood Pressure : */* mmHG Vent. Rate : 107 BPM Atrial Rate : 107 BPM P-R Int : 138 ms QRS Dur : 90 ms QT Int : 322 ms P-R-T Axes : 51 29 119 degrees QTcB Int : 429 ms Poor data quality, interpretation may be adversely affected Sinus tachycardia Premature ventricular complexes Abnormal ECG When compared with ECG of 13-Nov-2023 21:28, ST now depressed in Anterolateral leads Confirmed by Khadar García ([id number]) on 11/15/2023 1:40:34 PM Referred By: REFERRED SELF Confirmed By: Khadar García
--- NOTE | 2023-11-15 14:21 | XRay Report ---
XR chest 1V portable HISTORY: s/p seizure, course BS; ?aspiration COMPARISON: Chest 10/16/2023. FINDINGS: Right subclavian Port-A-Cath terminates in the proximal SVC. No pneumothorax. No pleural ef fusions. The heart remains mildly enlarged. There is perihilar interstitial/vascular thickening sugge stive of mild congestive change. This has slightly progressed. Left basilar linear densities favor hoyt bsegmental atelectasis. This is similar to the prior study. No new focal lung consolidations. No acut e fractures. IMPRESSION: 1. Cardiomegaly with mild congestive change. This has slightly progressed. 2. Left basilar linear densities favor subsegmental atelectasis. ACT 112: Negative or not required by law. Electronically signed by: Camron Medina M.D. 11/15/2023 2:20 PM
[2023-11-15 14:24] LABS: Base Excess VBG -1.8 mEq/L; HCO3 VBG 22 mmol/L; Oxygen Saturation VBG 69.7 %; PCO2 VBG 32 mmHg (38-50); PO2 VBG 39 mmHg; pH VBG 7.44 (7.36-7.41)
[2023-11-15] MEDS: LORazepam 1 MG in SYRINGE 0.5 ML IV PRN (17:12)
[2023-11-15] MEDS: LORazepam 2 MG/1 ML VIAL ONE (17:28)
[2023-11-15] MEDS: VALPROATE SOD 1,000 MG in DEXTROSE 5% 50 ML IV ONE (18:18)
[2023-11-15] MEDS: HEPARIN SOD 5,000 UNIT/0.5 ML VIAL SQ SCH (21:24)
[2023-11-16 07:05] LABS: Albumin Level 3.3 gm/dl (3.4-5.0); Calcium 8.3 mg/dl (8.6-10.3); Creatinine Clr Calc Pharmacy 123.8 ml/min; Est GFR (African American) 121.5 ml/min; Est GFR (Non-African American) 104.8 ml/min; Magnesium 1.6 mg/dl (1.7-2.4); Phosphorus 2.3 mg/dl (2.5-4.9); Potassium 3.8 mmol/L (3.5-5.1)
[2023-11-16 07:15] LABS: Troponin I High Sensitivity 40.3 pg/ml (0-20)
[2023-11-16] MEDS: MAGNESIUM SULFATE / D5W 1 GM/100 ML BAG IV SCH (08:49)
[2023-11-16] MEDS: amLODIPine BESYLATE 5 MG TAB PO SCH (08:55)
[2023-11-16] MEDS ORDERED: dexAMETHasone 4 MG in SYRINGE 0 ML IV SCH (09:00)
[2023-11-16] MEDS: dexAMETHasone 2 MG in SYRINGE 0 ML IV SCH (09:59)
[2023-11-16] MEDS: VALPROATE SOD 500 MG in DEXTROSE 5% 50 ML IV SCH (10:31)
--- NOTE | 2023-11-16 14:25 | Hospitalist Progress Note ---
Date of Service November 16, 2023 Assessment & Plan (1) Seizure: Plan: breakthrough seizure 11/14 AM due to not receiving lacosamide since admission, stress of illness (UTI), etc. CT head done 11/13 without acute findings and stable right temporal GBM and volume loss; no increased edema on that CT had a 2nd seizure late afternoon on 11/14 in addition to resumption of vimpat 100mg BID we added depakote IV on 11/14 gave load of 1000mg x 1 of depakote evening of 11/14 followed by 500mg BID can change to PO formulation of vimpat + depakote lacosamide level sent & pending IV ativan ordered for prn use if another seizure occurs seizure precautions I did order MRI brain w/ and w/o contrast to rule out worsening edema, advancing size of GBM, etc. (2) Acute UTI (urinary tract infection): Plan: culture pending still but GPC is growing cont rocephin cont daptomycin for pain - vibegron daily pyridium TID scheduled (3) Acute urinary retention: Plan: 2nd to BPH, UTI, etc. 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 [address] head 11/13 - stable right-sided temporal GBM MRI brain ordered which might shed more light on his right-sided Shipman's (7) Glioblastoma: Plan: initial dx 2021 s/p surgery, chemo, xrt ultimately had recurrence in Dec 2022 requiring additional surgery follows with [facility] see #1 above seizure d/o is due to his GBM MRI brain w/ and w/o contrast pending cont dexamethasone daily (8) Hypomagnesemia: Plan: replaced resolved now low again - replace IV (9) Macrocytosis: Plan: B12/folate both wnl TSH wnl etiology uncertain due to medications? other? (10) Lactic acidosis: Plan: 2nd to seizure resolved (11) CAD (coronary artery disease): Plan: troponin minimally elevated in the midst of his seizures this is likely myocardial demand ischemia rather than ACS no ischemic symptoms at any time (12) Acute metabolic encephalopathy: Plan: 2nd to seizure, acidosis, etc improved (13) Acute respiratory distress: Plan: 2nd to seizure, acidosis, etc resolved Plan updated at bedside today DVT proph - heparin 5000 TID PT, OT when able Admission and Anticipated Discharge Date Admission Date: November 13, 2023 Subjective patient feeling much better today good appetite confusion is near baseline confusion left arm weakness is at baseline no recurrent seizures tele overnight wnl at bedside during the visit Review of Systems Review of Systems: gen - no fevers GI - suprapubic pain is improved; no N/V pulm - no dyspnea CV - no chest pain Physical Exam Physical Exam: gen - looks better today, NAD, talkative and interactive face - Shipman's Palsy on right - baseline neck - no JVD heart - RRR, s1 s2, no murmur lungs - CTA b/l abd - soft NT ND BS+ ext - no edema, pulses 2+ b/l - brown in place neuro - mild left arm/hand weakness; b/l leg strength 5/5; RUE strength 5/5; awake, alert Results & Data Results & Data Vital Signs (Past 12 Hours) Vital Signs Temp Pulse Pulse Resp BP BP Pulse Ox 11/16/23 11:09 36.5 C 73 18 131/85 97 11/16/23 09:11 36.3 C L 65 19 150/84 H 97 11/16/23 07:15 75 11/16/23 07:15 11/16/23 02:26 36.5 C 68 18 140/81 95 O2 Del Method 11/16/23 11:09 Room Air 11/16/23 09:11 Room Air 11/16/23 07:15 11/16/23 07:15 Room Air 11/16/23 02:26 Room Air Laboratory Results Laboratory Results - last 48 hr 11/15/23 11/15/23 11/15/23 10:28 10:49 10:53 WBC RBC Hgb POC Hgb 11.6 L Hct POC Hct 34 L MCV MCH MCHC RDW Std Deviation RDW Coeff of Inck Plt Count MPV Immature Gran % (Auto) Neut % (Auto) Lymph % (Auto) [place] % (Auto) Eos % (Auto) Baso % (Auto) Neut # (Auto) Lymph # (Auto) [place] # (Auto) Eos # (Auto) Baso # (Auto) Immature Gran # (Auto) Absolute Nucleated RBC Nucleated RBC % (auto) Polychromasia Anisocytosis Echinocytes Sample Site L Brachial POC pH 7.29 L POC pCO2 24 L POC pO2 183 H POC HCO3 11 L POC Total CO2 12 L POC Base Excess -15.0 L ABG pH (Temp Correct) 7.291 L ABG pCO2 (Temp Corrct 24 L POC ABG pO2 at Pt Temp 182 POC ABG O2 Sat 100.0 H Artur Test Pass VBG pH VBG pCO2 VBG pO2 VBG HCO3 VBG O2 Saturation VBG Base Excess O2 Delivery Device BIPAP POC O2 Rate 18 POC FiO2 30 IPAP 10 POC Sodium 137 Sodium POC Potassium 3.4 Potassium Chloride Carbon Dioxide Anion Gap BUN Creatinine Est Cr Clr Drug Dosing Est GFR ( Amer) Est GFR (Non-Af Amer) BUN/Creatinine Ratio Glucose POC Glucose 122 H Lactate Cancelled Calcium Phosphorus Magnesium Troponin I High Sens Albumin Procalcitonin 0.07 11/15/23 11/15/23 11/15/23 11:02 11:05 14:19 WBC 11.96 H RBC 3.32 L Hgb 11.9 L POC Hgb Hct 36.6 L POC Hct MCV 110.2 H MCH 35.8 H MCHC 32.5 RDW Std Deviation 68.1 H RDW Coeff of Nick 16.5 H Plt Count 164 MPV 9.7 Immature Gran % (Auto) 0.7 Neut % (Auto) 74.5 Lymph % (Auto) 18.6 [place] % (Auto) 5.5 Eos % (Auto) 0.4 Baso % (Auto) 0.3 Neut # (Auto) 8.91 H Lymph # (Auto) 2.23 [place] # (Auto) 0.66 H Eos # (Auto) 0.05 Baso # (Auto) 0.03 Immature Gran # (Auto) 0.08 Absolute Nucleated RBC 0.02 Nucleated RBC % (auto) 0.2 Polychromasia 1+ Anisocytosis Present Echinocytes 1+ Sample Site POC pH POC pCO2 POC pO2 POC HCO3 POC Total CO2 POC Base Excess ABG pH (Temp Correct) ABG pCO2 (Temp Corrct POC ABG pO2 at Pt Temp POC ABG O2 Sat Artur Test VBG pH 7.44 H VBG pCO2 32 L VBG pO2 39 VBG HCO3 22 VBG O2 Saturation 69.7 VBG Base Excess -1.8 O2 Delivery Device POC O2 Rate POC FiO2 IPAP POC Sodium Sodium POC Potassium Potassium Chloride Carbon Dioxide Anion Gap BUN Creatinine Est Cr Clr Drug Dosing Est GFR ( Amer) Est GFR (Non-Af Amer) BUN/Creatinine Ratio Glucose POC Glucose Lactate 6.1 H* Calcium Phosphorus Magnesium Troponin I High Sens 26.2 H D Albumin Procalcitonin 11/15/23 11/16/23 16:58 06:01 WBC RBC Hgb POC Hgb Hct POC Hct MCV MCH MCHC RDW Std Deviation RDW Coeff of Nick Plt Count MPV Immature Gran % (Auto) Neut % (Auto) Lymph % (Auto) [place] % (Auto) Eos % (Auto) Baso % (Auto) Neut # (Auto) Lymph # (Auto) [place] # (Auto) Eos # (Auto) Baso # (Auto) Immature Gran # (Auto) Absolute Nucleated RBC Nucleated RBC % (auto) Polychromasia Anisocytosis Echinocytes Sample Site POC pH POC pCO2 POC pO2 POC HCO3 POC Total CO2 POC Base Excess ABG pH (Temp Correct) ABG pCO2 (Temp Corrct POC ABG pO2 at Pt Temp POC ABG O2 Sat Artur Test VBG pH VBG pCO2 VBG pO2 VBG HCO3 VBG O2 Saturation VBG Base Excess O2 Delivery Device POC O2 Rate POC FiO2 IPAP POC Sodium Sodium 138 POC Potassium Potassium 3.8 Chloride 106 Carbon Dioxide 24 Anion Gap 8 BUN 12 Creatinine 0.48 L Est Cr Clr Drug Dosing 123.8 Est GFR ( Amer) 121.5 Est GFR (Non-Af Amer) 104.8 BUN/Creatinine Ratio 25.0 H Glucose 83 POC Glucose Lactate 1.4 Calcium 8.3 L Phosphorus 2.3 L Magnesium 1.6 L Troponin I High Sens 40.3 H D Albumin 3.3 L Procalcitonin Diagnostic Findings Microbiology 11/15/23 10:53 Blood Aerobic Blood Culture - Preliminary No growth in Aerobic bottle after 24 hours. 11/15/23 10:53 Blood Anaerobic Blood Culture - Final 11/13/23 21:56 Urine,Clean Catch Urine Culture - Preliminary Gram positive cocci Gardnerella-like bacilli PG Care Time/CCT Total # of Minutes Spent Total Time Spent with Patient: Total time spent is greater than 50% in coordination of care (as documented) at patient's floor/unit and/or counseling patient: Coding Level of Care Code 73705 SUB INP/OBS CARE 3/50MIN Diagnoses Seizure R56.9 Acute UTI (urinary tract infection) N39.0 Acute urinary retention R33.8 BPH w urinary obs/LUTS N40.1; N13.8 Hypokalemia E87.6 Shipman's palsy G51.0 Glioblastoma C71.9 Hypomagnesemia E83.42 Macrocytosis D75.89 Lactic acidosis E87.20 Coronary artery disease involving [place] heart without angina pectoris, unspecified vessel or lesion type I25.10 Associated angina: without angina Coronary Disease-Associated Artery/Lesion type: unspecified vessel or lesion type [place] vs. transplanted heart: [place] heart Acute metabolic encephalopathy G93.41 Acute respiratory distress R06.03 (11) CAD (coronary artery disease) Associated angina: without angina Coronary Disease-Associated Artery/Lesion type: unspecified vessel or lesion type [place] vs. transplanted heart: [place] heart Qualified Code(s): I25.10 - Atherosclerotic heart disease of [place] coronary artery without angina pectoris
[2023-11-16] MEDS: DIVALPROEX DELAY RELEASE 500 MG TAB PO SCH (20:27)
[2023-11-16] MEDS: LACOSAMIDE 50 MG TABLET PO SCH (22:00)
--- NOTE | 2023-11-17 08:09 | Magnetic Resonance Report ---
MR brain wo con CLINICAL HISTORY: known R temporal GBM; seizures; interval change TECHNIQUE: Multiplanar and multisequence MR images of the brain were obtained without intravenous con trast. Comparison: Comparison is made to MRI brain 08/14/2023, 09/14/2023, and CT head 11/16/2023 FINDINGS: Exam is limited by patient motion. Scattered foci of ill-defined restricted diffusion are compatible with known disease. Vasogenic edema is seen. The ventricular system is normal in appearance. [place] tration of right frontal and temporal masses. Expected postsurgical changes are seen. There is no tricia dence of acute intraparenchymal hemorrhage. No extra axial fluid collections are seen. The corpus roni losum, pituitary gland, and cerebellar tonsils appear grossly unremarkable. Flow voids of the major intracranial arterial vessels are identified. The imaged portions of the para nasal sinuses, mastoid air cells, and orbits are unremarkable. IMPRESSION: Limited exam due to patient motion with approximate stability of the right frontal and temporal nohemi s in this patient with known right temporal GBM. No superimposed acute abnormalities are definitely s een. ACT 112: Negative or not required by law. Electronically signed by: Ramiro Goodman M.D. 11/17/2023 8:07 AM
[2023-11-17] MEDS: FINASTERIDE 5 MG TAB PO SCH (10:11)
[2023-11-17] MEDS: TAMSULOSIN HCL 0.4 MG CAP PO SCH (10:11)
[2023-11-17 10:29] LABS: BUN Creatinine Ratio 21.1 (10-20); Calcium 8.6 mg/dl (8.6-10.3); Creatinine Clr Calc Pharmacy 104.2 ml/min; Est GFR (African American) 113.2 ml/min; Est GFR (Non-African American) 97.7 ml/min; Magnesium 1.8 mg/dl (1.7-2.4); Potassium 3.2 mmol/L (3.5-5.1)
[2023-11-17] MEDS: POTASSIUM CHLORIDE CRTAB 20 MEQ TABCR PO STA ×2 (14:42→16:36)
[2023-11-17] MEDS: FUROSEMIDE INJ 20 MG/2 ML VIAL IV ONE (16:35)
[2023-11-17] MEDS: MAGNESIUM OXIDE 400 MG TAB PO SCH (16:36)
[2023-11-17] MEDS ORDERED: AMPICILLIN 250 MG in SODIUM CHLORIDE 0.9% 50 ML IV SCH (16:45)
[2023-11-17] MEDS ORDERED: AMPICILLIN 2,000 MG in SODIUM CHLOR 0.9% MINI-B 100 ML IV SCH (17:00)
[2023-11-17] MEDS: AMPICILLIN 2,000 MG in SODIUM CHLOR 0.9% MINI-B 100 ML IV SCH (17:50)
--- NOTE | 2023-11-17 18:17 | Hospitalist Progress Note ---
Date of Service November 17, 2023 Assessment & Plan (1) Seizure: Plan: breakthrough seizure 11/14 AM due to not receiving lacosamide since admission, stress of illness (UTI), etc. CT head done 11/13 without acute findings and stable right temporal GBM and volume loss; no increased edema on that CT had a 2nd seizure late afternoon on 11/14 in addition to resumption of vimpat 100mg BID we added depakote IV on 11/14 gave load of 1000mg x 1 of depakote evening of 11/14 followed by 500mg BID cont vimpat 100mg BID + depakote 500mg BID [facility] [place] [facility] continuing both meds now and upon discharge lacosamide level sent & pending IV ativan ordered for prn use if another seizure occurs seizure precautions MRI brain from yesterday -- UNCHANGED from prior MRI (R frontal and R temporal masses unchanged from previous MRI, edema unchanged; no acute or subacute findings) (2) Acute UTI (urinary tract infection): Plan: 2nd enterococcus, sens to ampicillin 2nd gardneralla stop rocephin stop daptomycin change to IV ampicillin which will cover both organisms for pain, which is essentially resolved at this point - vibegron daily - consider making prn pyridium TID prn check PSA in am; if elevated consider longer course of PO abx to cover for possibility of prostatitis if PSA is normal then 10-14 days in total of abx should suffice (3) Acute urinary retention: Plan: 2nd to BPH, UTI, etc. ordered CT head to ensure no increase in size of his tumor, development of in tracerebral edema, etc - any LIVE TRUCK TECHNICIAN factor that could be contributing to urinary retention CT head neg for acute findings; stable right-sided temporal tumor present cont brown cont flomax appreciate urology assistance cont IV abx (4) BPH w urinary obs/LUTS: Plan: cont flomax use finasteride in brandi of dutasteride brown treat UTI (5) Hypokalemia: Plan: replaced resolved now low again --- renal wasting? other? 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 other? (10) Lactic acidosis: Plan: 2nd to seizure resolved (11) CAD (coronary artery disease): Plan: troponin minimally elevated in the midst of his seizures this was likely myocardial demand ischemia rather than ACS no ischemic symptoms at any time this admission (12) Acute metabolic encephalopathy: Plan: 2nd to seizure, acidosis, etc improved and near his baseline (does have some baseline confusion per ) (13) Acute respiratory distress: Plan: 2nd to seizure, acidosis, etc resolved but complaining of mild dyspnea with exertion pulmonary edema? will give a dose of IV lasix and re-eval tomorrow (14) Dysphagia: Plan: appreciate speech therapy consult and recs minced/moist diet advised for now video swallow scheduled for this coming Monday Plan Chronic issues - * HTN - BPs satisfactory with amlodipine 5mg daily updated at bedside again today DVT proph - heparin 5000 TID PT, OT rehab post-d/c Admission and Anticipated Discharge Date Admission Date: November 13, 2023 Subjective overnight - no new issues except some mild difficulty swallowing patient laying in bed comfortably bladder pain has resolved urine has cleared nicely in brown bag no recurrent seizures ate a good lunch remains with mild baseline confusion , sister at bedside we discussed placement for rehab post-discharge they are agreeable video swallow scheduled for Monday Review of Systems Review of Systems: gen - no fevers or chills cv - no cp pulm - mild "wheeze" sound when he moves around and mild dyspnea when he moves GI - no abd pain or N/V Physical Exam Physical Exam: gen - laying in bed comfortably, NAD; although with moving in bed he did become mildly dyspneic face - Shipman's Palsy on right - baseline neck - no JVD heart - RRR, s1 s2, no murmur lungs - CTA b/l, no adventitious sounds abd - soft NT ND BS+ ext - no edema, pulses 2+ b/l - brown in place - urine is orange color from pyridium Results & Data Results & Data Vital Signs (Past 12 Hours) Vital Signs Temp Pulse Pulse Pulse Resp BP Pulse Ox 11/17/23 15:46 65 11/17/23 15:25 37.1 C 90 19 130/85 92 11/17/23 11:02 36.7 C 83 19 154/80 H 94 11/17/23 07:30 82 11/17/23 07:30 11/17/23 07:30 36.4 C L 75 18 123/73 93 O2 Del Method 11/17/23 15:46 11/17/23 15:25 Room Air 11/17/23 11:02 Room Air 11/17/23 07:30 11/17/23 07:30 Room Air 11/17/23 07:30 Room Air Laboratory Results Laboratory Results - last 24 hr 11/17/23 09:46 Sodium 138 Potassium 3.2 L Chloride 105 Carbon Dioxide 26 Anion Gap 7 BUN 12 Creatinine 0.57 L Est Cr Clr Drug Dosing 104.2 Est GFR ( Amer) 113.2 Est GFR (Non-Af Amer) 97.7 BUN/Creatinine Ratio 21.1 H Glucose 92 Calcium 8.6 Magnesium 1.8 Diagnostic Findings Microbiology 11/13/23 21:56 Urine,Clean Catch Urine Culture - Final Enterococcus faecium Gardnerella-like bacilli 11/15/23 10:53 Blood Aerobic Blood Culture - Preliminary No growth in Aerobic bottle after 48 hours. 11/15/23 10:53 Blood Anaerobic Blood Culture - Final PG Care Time/CCT Total # of Minutes Spent Total Time Spent with Patient: Total time spent is greater than 50% in coordination of care (as documented) at patient's floor/unit and/or counseling patient: Coding Level of Care Code 90404 SUB INP/OBS CARE 3/50MIN Diagnoses Seizure R56.9 Acute UTI (urinary tract infection) N39.0 Acute urinary retention R33.8 BPH w urinary obs/LUTS N40.1; N13.8 Hypokalemia E87.6 Shipman's palsy G51.0 Glioblastoma C71.9 Hypomagnesemia E83.42 Macrocytosis D75.89 Lactic acidosis E87.20 Coronary artery disease involving [place] heart without angina pectoris, unspecified vessel or lesion type I25.10 Associated angina: without angina Coronary Disease-Associated Artery/Lesion type: unspecified vessel or lesion type [place] vs. transplanted heart: [place] heart Acute metabolic encephalopathy G93.41 Acute respiratory distress R06.03 Dysphagia R13.10 (11) CAD (coronary artery disease) Associated angina: without angina Coronary Disease-Associated Artery/Lesion type: unspecified vessel or lesion type [place] vs. transplanted heart: [place] heart Qualified Code(s): I25.10 - Atherosclerotic heart disease of [place] coronary artery without angina pectoris
[2023-11-18 06:59] LABS: BUN Creatinine Ratio 22.6 (10-20); Calcium 8.5 mg/dl (8.6-10.3); Creatinine Clr Calc Pharmacy 113.6 ml/min; Est GFR (African American) 116.6 ml/min; Est GFR (Non-African American) 100.6 ml/min; Magnesium 1.8 mg/dl (1.7-2.4)
[2023-11-18] MEDS: POTASSIUM CHLORIDE CRTAB 20 MEQ TABCR PO SCH (08:42)
[2023-11-18] MEDS: dexAMETHasone 1 MG TAB PO SCH (08:43)
[2023-11-18] MEDS: FUROSEMIDE INJ 20 MG/2 ML VIAL IV ONE (08:46)
--- NOTE | 2023-11-18 16:46 | Hospitalist Progress Note ---
Date of Service November 18, 2023 Assessment & Plan (1) Seizure: Plan: breakthrough seizure 11/14 AM due to not receiving lacosamide since admission, stress of illness (UTI), etc. had a 2nd seizure late afternoon on 11/14. CT head without acute findings and stable right temporal GBM and volume loss; no increased edema on that CT MRI brain UNCHANGED from prior MRI (R frontal and R temporal masses unchanged from previous MRI, edema unchanged; no acute or subacute findings) added depakote IV on 11/14 gave load of 1000mg x 1 of depakote evening of 11/14 followed by 500mg BID thereafter cont vimpat 100mg BID + depakote 500mg BID [facility] [place] [facility] both meds now and upon discharge lacosamide level sent & pending IV ativan ordered for prn use if another seizure occurs seizure precautions (2) Acute UTI (urinary tract infection): Plan: 2nd enterococcus, sens to ampicillin 2nd gardneralla stopped rocephin stopped daptomycin changed to IV ampicillin which will cover both organisms (changed on 11/16) cont vibegron daily - consider making prn pyridium TID - make prn today PSA < 1 making prostatitis unlikely plan - 10-14 days in total of IV/PO abx can likely transition to PO amox tomorrow (3) Acute urinary retention: Plan: 2nd to BPH, UTI, etc. 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 other? (10) Lactic acidosis: Plan: 2nd to seizure resolved (11) CAD (coronary artery disease): Plan: troponin minimally elevated in the midst of his seizures this was likely myocardial demand ischemia rather than ACS no ischemic symptoms at any time this admission (12) Acute metabolic encephalopathy: Plan: 2nd to seizure, acidosis, etc improved and near his baseline (does have some baseline confusion per ) (13) Acute respiratory distress: Plan: 2nd to seizure, acidosis, etc resolved then was complaining of mild dyspnea with exertion on 11/16 s/p IV lasix yesterday and today -- dyspnea improved re-eval for additional (14) Dysphagia: Plan: appreciate speech therapy consult and recs minced/moist diet advised for now video swallow scheduled for this coming Monday Plan Chronic issues - * HTN - BPs satisfactory with amlodipine 5mg daily updated at bedside again today DVT proph - heparin 5000 TID PT, OT rehab post-d/c Admission and Anticipated Discharge Date Admission Date: November 13, 2023 Subjective no new events eating well denies abd pain mild baseline confusion continues /sister at bedside unable to get out of bed - too weak, and dizzy with moving Review of Systems Review of Systems: gen - no fevers or chills cv - no chest pain pulm - no dyspnea noted by his family like previous GI - on abd pain or N/V Physical Exam Physical Exam: gen - laying in bed comfortably, NAD, talkative/telling stories face - Shipman's Palsy on right - baseline neck - no JVD heart - RRR, s1 s2, no murmur lungs - CTA b/l, no adventitious sounds, good airation abd - soft NT ND BS+ ext - no edema, pulses 2+ b/l - brown in place Results & Data Results & Data Vital Signs (Past 12 Hours) Vital Signs Temp Pulse Pulse Pulse Resp BP Pulse Ox 11/18/23 15:57 101 H 11/18/23 15:25 36.5 C 99 H 19 138/84 94 11/18/23 11:10 36.4 C L 103 H 19 101/77 95 11/18/23 07:26 60 11/18/23 07:26 08/17/24 07:11 36.7 C 73 18 158/76 H 91 O2 Del Method 11/18/23 15:57 11/18/23 15:25 Room Air 11/18/23 11:10 Room Air 11/18/23 07:26 11/18/23 07:26 Room Air 11/18/23 07:11 Room Air Laboratory Results Laboratory Results - last 24 hr 11/18/23 05:49 Sodium 142 Potassium 4.0 D Chloride 107 Carbon Dioxide 27 Anion Gap 8 BUN 12 Creatinine 0.53 L Est Cr Clr Drug Dosing 113.6 Est GFR ( Amer) 116.6 Est GFR (Non-Af Amer) 100.6 BUN/Creatinine Ratio 22.6 H Glucose 90 Calcium 8.5 L Magnesium 1.8 Prostate Specific Ag 0.643 PG Care Time/CCT Total # of Minutes Spent Total Time Spent with Patient: Total time spent is greater than 50% in coordination of care (as documented) at patient's floor/unit and/or counseling patient: Coding Level of Care Code 81170 SUB INP/OBS CARE 2/35MIN Diagnoses Seizure R56.9 Acute UTI (urinary tract infection) N39.0 Acute urinary retention R33.8 BPH w urinary obs/LUTS N40.1; N13.8 Hypokalemia E87.6 Shipman's palsy G51.0 Glioblastoma C71.9 Hypomagnesemia E83.42 Macrocytosis D75.89 Lactic acidosis E87.20 Coronary artery disease involving [place] heart without angina pectoris, unspecified vessel or lesion type I25.10 Associated angina: without angina Coronary Disease-Associated Artery/Lesion type: unspecified vessel or lesion type [place] vs. transplanted heart: [place] heart Acute metabolic encephalopathy G93.41 Acute respiratory distress R06.03 Dysphagia R13.10 (11) CAD (coronary artery disease) Associated angina: without angina Coronary Disease-Associated Artery/Lesion type: unspecified vessel or lesion type [place] vs. transplanted heart: [place] heart Qualified Code(s): I25.10 - Atherosclerotic heart disease of [place] coronary artery without angina pectoris
[2023-11-18] MEDS: METOPROLOL SUCC 25MG EXT REL TAB PO STA (17:31)
[2023-11-19 08:32] LABS: Calcium 8.4 mg/dl (8.6-10.3); Creatinine Clr Calc Pharmacy 110.9 ml/min; Est GFR (African American) 116.6 ml/min; Est GFR (Non-African American) 100.6 ml/min; Magnesium 1.8 mg/dl (1.7-2.4); Potassium 3.6 mmol/L (3.5-5.1)
[2023-11-19] MEDS: METOPROLOL SUCC 25MG EXT REL TAB PO SCH (09:59)
[2023-11-19] MEDS: FUROSEMIDE 20 MG TAB PO ONE (10:01)
--- NOTE | 2023-11-19 11:22 | Hospitalist Progress Note ---
Date of Service November 19, 2023 Assessment & Plan (1) Seizure: Plan: breakthrough seizure 11/14 AM due to not receiving lacosamide since admission, stress of illness (UTI), etc. had a 2nd seizure late afternoon on 11/14. CT head without acute findings and stable right temporal GBM and volume loss; no increased edema on that CT MRI brain UNCHANGED from prior MRI (R frontal and R temporal masses unchanged from previous MRI, edema unchanged; no acute or subacute findings) added depakote IV on 11/14 gave load of 1000mg x 1 of depakote evening of 11/14 followed by 500mg BID thereafter cont vimpat 100mg BID + depakote 500mg BID [facility] [place] [facility] both meds upon discharge lacosamide level sent & pending (from the day of his seizures) IV ativan ordered for prn use if another seizure occurs seizure precautions keep K/mag wnl (2) Acute UTI (urinary tract infection): Plan: 2nd enterococcus, sens to ampicillin 2nd gardneralla stopped rocephin stopped daptomycin changed to IV ampicillin which will cover both organisms (changed on 11/16) can change amp to PO amox starting tonight plan 7 days of amox then stop all abx this will give him ~14 days of IV/PO abx cont vibegron daily - will make prn; no further bladder spasm or pain pyridium TID prn PSA < 1 making prostatitis unlikely (3) Acute urinary retention: Plan: 2nd to BPH, UTI, etc. 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 [address] head 11/13 - stable right-sided temporal GBM MRI brain this admission STABLE/UNCHANGED from prior brain MRI (7) Glioblastoma: Plan: initial dx 2021 s/p surgery, chemo, xrt ultimately had recurrence in Dec 2022 requiring additional surgery follows with [facility] see above seizure d/o is due to his GBM cont dexamethasone 2mg/day will ask Dr Shore from [facility] to see him in consult; family with questions about next steps for his care, etc (8) Hypomagnesemia: Plan: replaced resolved (9) Macrocytosis: Plan: B12/folate both wnl TSH wnl etiology uncertain due to medications? other? (10) Lactic acidosis: Plan: 2nd to seizure resolved (11) CAD (coronary artery disease): Plan: troponin minimally elevated in the midst of his seizures this was likely myocardial demand ischemia rather than ACS no ischemic symptoms at any time this admission (12) Acute metabolic encephalopathy: Plan: 2nd to seizure, acidosis, etc improved and near his baseline (does have some baseline confusion per ) (13) Acute respiratory distress: Plan: 2nd to seizure, acidosis, etc resolved (14) Dysphagia: Plan: appreciate speech therapy consult and recs minced/moist diet advised for now video swallow scheduled for tomorrow, 11/19 Plan Chronic issues - * HTN - BPs satisfactory with amlodipine 5mg daily and pt's sister updated at bedside again today DVT proph - heparin 5000 TID PT, OT rehab post-d/c Admission and Anticipated Discharge Date Admission Date: November 13, 2023 Subjective tele overnight wnl no new events no breathing difficulty or wheezing noted by his family denies pain in any location eating fair-good pt's sister asks about status of his GBM and next steps for such Review of Systems Review of Systems: cv - no orthopnea or PND pulm - no dyspnea, no cough GI - no N/V Physical Exam Physical Exam: gen - laying falt in bed comfortably, NAD face - Shipman's Palsy on right - baseline mouth - ?thrush on tongue? neck - no JVD heart - RRR, s1 s2, no murmur lungs - CTA b/l abd - soft NT ND BS+ ext - no edema, pulses 2+ b/l Results & Data Results & Data Vital Signs (Past 12 Hours) Vital Signs Temp Pulse Pulse Resp BP Pulse Ox O2 Del Method 11/19/23 10:45 36.7 C 93 H 19 148/81 H 94 Room Air 11/19/23 07:36 36.7 C 73 19 168/90 H 91 Room Air 08/18/24 03:15 36.9 C 86 18 139/84 94 Room Air 11/19/23 00:45 94 H Laboratory Results Laboratory Results - last 24 hr 11/19/23 08:05 Sodium 145 Potassium 3.6 Chloride 108 H Carbon Dioxide 30 Anion Gap 7 BUN 18 Creatinine 0.53 L Est Cr Clr Drug Dosing 110.9 Est GFR ( Amer) 116.6 Est GFR (Non-Af Amer) 100.6 BUN/Creatinine Ratio 34.0 H Glucose 95 Calcium 8.4 L Magnesium 1.8 Ammonia 37.0 PG Care Time/CCT Total # of Minutes Spent Total Time Spent with Patient: Total time spent is greater than 50% in coordination of care (as documented) at patient's floor/unit and/or counseling patient: Coding Level of Care Code 15020 SUB INP/OBS CARE 2/35MIN Diagnoses Seizure R56.9 Acute UTI (urinary tract infection) N39.0 Acute urinary retention R33.8 BPH w urinary obs/LUTS N40.1; N13.8 Hypokalemia E87.6 Shipman's palsy G51.0 Glioblastoma C71.9 Hypomagnesemia E83.42 Macrocytosis D75.89 Lactic acidosis E87.20 Coronary artery disease involving [place] heart without angina pectoris, unspecified vessel or lesion type I25.10 Associated angina: without angina Coronary Disease-Associated Artery/Lesion type: unspecified vessel or lesion type [place] vs. transplanted heart: [place] heart Acute metabolic encephalopathy G93.41 Acute respiratory distress R06.03 Dysphagia R13.10 (11) CAD (coronary artery disease) Associated angina: without angina Coronary Disease-Associated Artery/Lesion type: unspecified vessel or lesion type [place] vs. transplanted heart: [place] heart Qualified Code(s): I25.10 - Atherosclerotic heart disease of [place] coronary artery without angina pectoris
[2023-11-19] MEDS ORDERED: VIBEGRON 75 MG TAB PO PRN (16:29)
[2023-11-19] MEDS: NYSTATIN SUSP 500,000 U/5 ML UDC PO SCH (17:33)
[2023-11-19] MEDS: AMOXICILLIN 875 MG TAB PO SCH (20:10)
[2023-11-19] MEDS: PHENAZOPYRIDINE HCL 200 MG TAB PO PRN (20:10)
[2023-11-20] MEDS: hydrALAZINE HCL 20 MG/ML VIAL IV PRN (03:48)
[2023-11-20] MEDS: METOPROLOL SUCC 50MG EXT REL TAB PO SCH (10:55)
--- NOTE | 2023-11-20 11:23 | Fluoroscopy Report ---
FL video swallow HISTORY: r/o aspiration TECHNIQUE: Video fluoroscopic evaluation of swallowing was performed in the AP and lateral projection s by the speech pathology staff. The patient is fed nectar-thick and thin liquid barium, a barium coa alicia wafer, and barium pudding. FLUOROSCOPY TIME: 1 minute and 48 seconds.. Ka,r: 13.9 mGy COMPARISON STUDY: None. FINDINGS: There is normal hyoid excursion and epiglottic deflection. Pudn-xm-eytprvyi vallecular resi due seen throughout the examination most pronounced with the thicker barium consistencies. There is a n episode of deep penetration to the vocal cords with possible trace aspiration during serial swallow s of the thin liquid barium. IMPRESSION: 1. There is an episode of deep penetration to the vocal cords with possible trace aspiration during s erial swallows of the thin liquid barium. 2. Please see the speech pathologist report for detailed findings and recommendations. ACT 112: Negative or not required by law. Electronically signed by: Camron Medina M.D. 11/20/2023 11:20 AM
--- NOTE | 2023-11-20 19:59 | Hospitalist Progress Note ---
Date of Service November 20, 2023 Assessment & Plan (1) Seizure: Plan: breakthrough seizure 11/14 AM due to not receiving lacosamide since admission (missed 2 doses), stress of illness (UTI), etc. had a 2nd seizure late afternoon on 11/14. CT head without acute findings and stable right temporal GBM and volume loss; no increased edema on that CT MRI brain UNCHANGED from prior MRI (R frontal and R temporal masses unchanged from previous MRI, edema unchanged; no acute or subacute findings) added depakote IV on 11/14 gave load of 1000mg x 1 of depakote evening of 11/14 followed by 500mg BID thereafter cont vimpat 100mg BID + depakote 500mg BID [facility] [place] [facility] both meds upon discharge lacosamide level sent & pending (from the day of his seizures) IV ativan ordered for prn use if another seizure occurs seizure precautions keep K/mag wnl would check a depakote level in 2 days (2) Acute UTI (urinary tract infection): Plan: 2nd enterococcus, sens to ampicillin 2nd gardneralla stopped rocephin stopped daptomycin changed to IV ampicillin which will cover both organisms (changed on 11/16) then changed amp to PO amox on 11/18 plan 7 days of amox then stop all abx; today is day #2 of amox this will give him ~14 days of IV/PO abx vibegron daily prn pyridium TID prn PSA < 1 making prostatitis unlikely (3) Acute urinary retention: Plan: 2nd to BPH, UTI, etc. 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 [address] head 11/13 - stable right-sided temporal GBM MRI brain this admission STABLE/UNCHANGED from prior brain MRI (7) Glioblastoma: Plan: initial dx 2021 s/p surgery, chemo, xrt ultimately had recurrence in Dec 2022 requiring additional surgery follows with [facility] see above seizure d/o is due to his GBM cont dexamethasone 2mg/day sent message to Dr Shore from [facility] but he may be out of town/not available thus, will simply have patient f/u with Dr Shore post-discharge (8) Hypomagnesemia: Plan: replaced resolved (9) Macrocytosis: Plan: B12/folate both wnl TSH wnl etiology uncertain due to medications? other? (10) Lactic acidosis: Plan: 2nd to seizure resolved (11) CAD (coronary artery disease): Plan: troponin minimally elevated in the midst of his seizures this was likely myocardial demand ischemia rather than ACS no ischemic symptoms at any time this admission (12) Acute metabolic encephalopathy: Plan: 2nd to seizure, acidosis, etc improved and near his baseline (does have baseline confusion/cognitive impairment/personality change per ) (13) Acute respiratory distress: Plan: 2nd to seizure, acidosis, etc resolved (14) Dysphagia: Plan: appreciate speech therapy consult and recs video swallow completed today minced/moist diet advised for now Plan Chronic issues - * HTN - BPs satisfactory with amlodipine 5mg daily DVT proph - heparin 5000 TID PT, OT rehab post-d/c referrals pending left message for pt's on 11/20/23 on her voicemail can likely d/c tele and move to med/surg tomorrow if tele is normal overnight and no seizures Admission and Anticipated Discharge Date Admission Date: November 13, 2023 Subjective no events today had video swallow by speech therapy -- minced/moist diet recommended no aspiration fortunately no seizures tele - NSR pt was visiting with some friends during the visit he denied any complaints Review of Systems Review of Systems: CV - no chest pain pulm - no dyspnea GI - no abd pain or N/V Physical Exam Physical Exam: gen - laying falt in bed comfortably, NAD face - Shipman's Palsy on right - baseline mouth - thrush on tongue improved neck - no JVD heart - RRR, s1 s2, no murmur lungs - CTA b/l, no rales or wheeze today abd - soft NT ND BS+ ext - no edema, pulses 2+ b/l - urine is concentrated, no hematuria Results & Data Results & Data Vital Signs (Past 12 Hours) Vital Signs Temp Pulse Pulse Resp BP BP Pulse Ox 11/20/23 19:08 36.5 C 89 16 147/81 H 94 11/20/23 15:00 85 11/20/23 14:38 37.1 C 75 16 146/75 H 92 11/20/23 10:48 36.5 C 82 17 135/81 96 11/20/23 08:00 85 11/20/23 08:00 O2 Del Method 11/20/23 19:08 Room Air 11/20/23 15:00 11/20/23 14:38 Room Air 11/20/23 10:48 Room Air 11/20/23 08:00 11/20/23 08:00 Room Air PG Care Time/CCT Total # of Minutes Spent Total Time Spent with Patient: Total time spent is greater than 50% in coordination of care (as documented) at patient's floor/unit and/or counseling patient: Coding Level of Care Code 54604 SUB INP/OBS CARE 2/35MIN Diagnoses Seizure R56.9 Acute UTI (urinary tract infection) N39.0 Acute urinary retention R33.8 BPH w urinary obs/LUTS N40.1; N13.8 Hypokalemia E87.6 Shipman's palsy G51.0 Glioblastoma C71.9 Hypomagnesemia E83.42 Macrocytosis D75.89 Lactic acidosis E87.20 Coronary artery disease involving [place] heart without angina pectoris, unspecified vessel or lesion type I25.10 Associated angina: without angina Coronary Disease-Associated Artery/Lesion type: unspecified vessel or lesion type [place] vs. transplanted heart: [place] heart Acute metabolic encephalopathy G93.41 Acute respiratory distress R06.03 Dysphagia R13.10 (11) CAD (coronary artery disease) Associated angina: without angina Coronary Disease-Associated Artery/Lesion type: unspecified vessel or lesion type [place] vs. transplanted heart: [place] heart Qualified Code(s): I25.10 - Atherosclerotic heart disease of [place] coronary artery without angina pectoris
[2023-11-21 07:12] LABS: Hematocrit (blood only) 36.5 % (42.0-52.0); Mean Corpuscular Hemoglobin 35.7 pg (25.0-34.0); Mean Corpuscular Hgb Conc 32.9 g/dL (32.0-36.0); Mean Corpuscular Volume 108.6 fL (80.0-100.0); Mean Platelet Volume 9.8 fL (9.4-12.4); Nucleated RBC # (auto) 0.09 K/uL (0.00-0.12); Nucleated RBC % (auto) 0.8 %; Platelet Count 188 K/uL (130-400); RDW Coefficient of Variation 15.8 % (11.5-14.5); RDW Standard Deviation 62.9 fL (36.4-46.3); Red Blood Count 3.36 M/uL (4.70-6.10); White Blood Count 10.84 K/ul (4.8-10.8)
[2023-11-21 07:25] LABS: BUN Creatinine Ratio 47.5 (10-20); Calcium 8.7 mg/dl (8.6-10.3); Creatinine Clr Calc Pharmacy 96.6 ml/min; Est GFR (African American) 110.1 ml/min; Potassium 3.9 mmol/L (3.5-5.1)
--- NOTE | 2023-11-21 17:17 | Hospitalist Progress Note ---
Date of Service November 21, 2023 Assessment & Plan (1) Acute metabolic encephalopathy: Plan: 78-year-old man with history of GBM and 2 previous surgeries admitted with Enterococcus UTI, subsequently had 2 breakthrough seizures on 11/14 related to having not received his lacosamide since admission as well as stress of acute illness. UTI is well treated at this point however remains lethargic and not back to his baseline with respect to mental status. No further seizures have been observed this may represent a prolonged postictal state and/or hypoactive delirium related to UTI. He did have a brain MRI several days ago which did not show any appreciable change in the glioblastoma from previous imaging. Will repeat a spot EEG to make sure there is no ongoing seizure activity although seems unlikely try increasing Decadron from his baseline of 2 mg to 4 mg twice daily however no specific mention of cerebral edema surrounding the glioblastoma on imaging continue AEDs. lacosamide level is pending, ammonia was normal, I do not see a valproate level though he is on his usual dose BMP today was unremarkable does have baseline confusion/cognitive impairment/personality change per his (2) Seizure: Plan: breakthrough seizure 11/14 AM due to not receiving lacosamide since admission (missed 2 doses), stress of illness (UTI), etc. had a 2nd seizure late afternoon on 11/14. CT head without acute findings and stable right temporal GBM and volume loss; no increased edema on that CT MRI brain UNCHANGED from prior MRI (R frontal and R temporal masses unchanged from previous MRI, edema unchanged; no acute or subacute findings) cont vimpat 100mg BID + depakote 500mg BID had [place] correspondence with [facility] - they advise continuing both meds upon discharge lacosamide level sent & pending (from the day of his seizures) IV ativan ordered for prn use if another seizure occurs seizure precautions keep K/mag wnl check VPA level in AM (3) Acute UTI (urinary tract infection): Plan: 2nd enterococcus, sens to ampicillin 2nd gardneralla stopped rocephin stopped daptomycin changed to IV ampicillin which will cover both organisms (changed on 11/16) then changed amp to PO amox on 11/18 plan 7 days of amox then stop all abx; today is day #3 of amox this will give him ~14 days of IV/PO abx stop vibegron and pyridium since now asymptomatic PSA < 1 making prostatitis unlikely (4) Acute urinary retention: Plan: 2nd to BPH with urinary obstruction, UTI, encephalopathy cont brown cont flomax, use finasteride in brandi of dutasteride, voiding trial in apx 1 week appreciate urology assistance cont abx (5) Hypokalemia: Plan: K normal today (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 [address] head 11/13 - stable right-sided temporal GBM MRI brain this admission STABLE/UNCHANGED from prior brain MRI (7) Glioblastoma: Plan: initial dx 2021 s/p surgery, chemo, xrt ultimately had recurrence in Dec 2022 requiring additional surgery follows with [facility] see above seizure d/o is due to his GBM cont dexamethasone sent message to Dr Shore from [facility] but he may be out of town/not available thus, will simply have patient f/u with Dr Shore post-discharge (8) Hypomagnesemia: Plan: replaced resolved (9) Macrocytosis: Plan: B12/folate both wnl TSH wnl etiology uncertain due to medications? other? (10) CAD (coronary artery disease): Plan: troponin minimally elevated in the midst of his seizures this was likely myocardial demand ischemia rather than ACS no ischemic symptoms at any time this admission (11) Dysphagia: Plan: appreciate speech therapy consult and recs video swallow completed today minced/moist diet advised for now Plan Chronic issues - * HTN - BPs satisfactory with amlodipine 5mg daily DVT proph - enoxaparin PT, OT rehab post-d/c referrals pending, discussed with his and healthcare applications analyst 11/20 at bedside - transfer to [place] rehab may be an option Admission and Anticipated Discharge Date Admission Date: November 13, 2023 Subjective James remains pretty somnolent this nurse that he did wake up and eat some breakfast and took his pills however generally pretty sleepy I saw him midday with his present and he kept saying "its cold" or I am cold over and over again. she says this is now his normal baseline mental status usually he is up and around and can get around the house with a walker and is much more conversant Physical Exam 2 Physical Exam: PHYSICAL EXAMINATION Last 24h vital signs reviewed, see documentation in flowsheet General: sitting in bed leaning towards the right, frequently stating I am cold or it is cold HEENT: moist mucous membranes Lungs: Normal respiratory effort. Clear to auscultation bilaterally. No RRW Heart: Regular rate and rhythm, no murmurs. No JVD Abdomen: Soft, nontender, nondistended. Bowel sounds present. Extremities: Warm, dry, well-perfused. No extremity edema. Neuro: Alert and not oriented, can tell me he is not at home but not where, cannot tell me his 's name, left-sided facial palsy related to Shipman's palsy, left upper extremity greater than left lower extremity weakness which is baseline, observed to move right upper extremity and right lower extremity spontaneously Psych: unable to assess, calm Results & Data Results & Data Vital Signs (Past 12 Hours) Vital Signs Temp Pulse Pulse Resp BP Pulse Ox O2 Del Method 11/21/23 14:57 36.9 C 82 18 131/82 97 Room Air 11/21/23 14:29 78 11/21/23 10:58 36.8 C 67 18 129/82 97 Room Air 11/21/23 07:51 69 11/21/23 07:05 37.0 C 100 H 18 118/75 93 Room Air Laboratory Results 11/21/23 06:40 11/21/23 06:40 PG Care Time/CCT Total # of Minutes Spent Total Time Spent with Patient: Total time spent is greater than 50% in coordination of care (as documented) at patient's floor/unit and/or counseling patient: Coding Level of Care Code 41883 SUB INP/OBS CARE 2/35MIN Diagnoses Acute metabolic encephalopathy G93.41 Seizure R56.9 Acute UTI (urinary tract infection) N39.0 Acute urinary retention R33.8 Hypokalemia E87.6 Shipman's palsy G51.0 Glioblastoma C71.9 Hypomagnesemia E83.42 Macrocytosis D75.89 Coronary artery disease involving [place] heart without angina pectoris, unspecified vessel or lesion type I25.10 Coronary Disease-Associated Artery/Lesion type: unspecified vessel or lesion type [place] vs. transplanted heart: [place] heart Associated angina: without angina Dysphagia R13.10 (10) CAD (coronary artery disease) Coronary Disease-Associated Artery/Lesion type: unspecified vessel or lesion type [place] vs. transplanted heart: [place] heart Associated angina: without angina Qualified Code(s): I25.10 - Atherosclerotic heart disease of [place] coronary artery without angina pectoris
[2023-11-21] MEDS: dexAMETHasone 4 MG TAB PO SCH (17:50)
[2023-11-21] MEDS: ATORVASTATIN 40 MG TAB PO SCH (20:02)
[2023-11-22] MEDS: FAMOTIDINE 20 MG TAB PO SCH (09:12)
[2023-11-22] MEDS: ASPIRIN 81 MG ECTAB PO SCH (09:15)
[2023-11-22] MEDS: ENOXAPARIN INJ 40 MG/0.4 ML SYR SQ SCH (09:17)
--- NOTE | 2023-11-22 13:40 | Electroencephalogram ---
EEG Procedure Note Date of Service November 22, 2023 Start / End Times Start Time: 1023 End Time: 1043 Referring Physician Carlene Reed MD History 78-year-old with history of acute encephalopathy and seizures, on Vimpat and Depakote. History of glioblastoma postsurgery Home Medication List Medication Instructions Recorded Confirmed Type aspirin 81 mg tablet,delayed 81 mg PO QAM #30 tabs 02/17/22 11/14/23 Rx release cholecalciferol (vitamin D3) 125 125 mcg PO QAM 02/22/23 11/14/23 History mcg (5,000 unit) tablet (Vitamin D3) famotidine 20 mg tablet 20 mg PO QAM 02/22/23 11/14/23 History atorvastatin 40 mg tablet 40 mg PO HS #90 tabs 04/27/23 11/14/23 Rx dexamethasone 2 mg tablet 2 mg PO QAM 07/04/23 11/14/23 History dutasteride 0.5 mg capsule 0.5 mg PO QAM #90 caps 07/27/23 11/14/23 Rx (Avodart) metoprolol succinate 50 mg 50 mg PO QAM #90 tabs 08/07/23 11/14/23 Rx tablet,extended release 24 hr [id number]-[id number] 450 unit 450 unit PO DAILY 10/09/23 11/14/23 History disintegrating tablet (Beano) lacosamide 100 mg tablet (Vimpat) 100 mg PO BID #180 tabs 11/03/23 11/14/23 Rx amlodipine 5 mg tablet 5 mg PO DAILY 11/14/23 11/14/23 History artificial tears with lanolin eye 1 applic OPR HS 11/14/23 11/14/23 History ointment lisinopril 10 mg tablet 10 mg PO DAILY 11/14/23 11/14/23 History tamsulosin 0.4 mg capsule 0.4 mg PO HS 11/14/23 11/14/23 History Inpatient Medication List Acetaminophen (Acetaminophen 325 Mg Tab) 650 mg PO Q4H PRN PRN Reason: pain/fever Stop: 12/14/23 00:55 Last Admin: 11/17/23 20:53 Dose: 650 mg Documented By: [facility] Admin: 11/16/23 20:26 Dose: 650 mg Documented By: [facility] Admin: 11/16/23 08:54 Dose: 650 mg Documented By: Admin: 11/15/23 16:04 Dose: 650 mg Documented By: Admin: 11/15/23 06:46 Dose: 650 mg Documented By: Admin: 11/14/23 22:55 Dose: 650 mg Documented By: Admin: 11/14/23 08:56 Dose: 650 mg Documented By: Admin: 11/14/23 02:04 Dose: 650 mg Documented By: MYRA Amlodipine Besylate (Amlodipine Besylate 5 Mg Tab) 5 mg PO DAILY DEMAR Stop: 12/16/23 08:59 Last Admin: 11/22/23 09:14 Dose: 5 mg Documented By: Admin: 11/21/23 08:52 Dose: 5 mg Documented By: Admin: 11/20/23 10:52 Dose: 5 mg Documented By: Admin: 11/19/23 09:59 Dose: 5 mg Documented By: Admin: 11/18/23 08:42 Dose: 5 mg Documented By: Admin: 11/17/23 09:33 Dose: 5 mg Documented By: Admin: 11/16/23 08:55 Dose: 5 mg Documented By: SADIE Amoxicillin (Amoxicillin 875 Mg Tab) 875 mg PO BID [facility] [place]; Protocol Stop: 11/26/23 20:59 Last Admin: 11/22/23 09:14 Dose: 875 mg Documented By: Admin: 11/21/23 20:02 Dose: 875 mg Documented By: Admin: 11/21/23 08:52 Dose: 875 mg Documented By: Admin: 11/20/23 21:40 Dose: 875 mg Documented By: Admin: 11/20/23 10:52 Dose: 875 mg Documented By: Admin: 11/19/23 20:50 Dose: Not Given Documented By: JANA Aspirin (Aspirin 81 Mg Ectab) [facility] [place] [facility]: 12/22/23 08:59 Last Admin: 11/22/23 09:15 Dose: 81 mg Documented By: NICKI Atorvastatin Calcium (Atorvastatin 40 Mg Tab) 40 mg PO HS [facility] [place] Stop: 12/21/23 20:59 Last Admin: 11/21/23 20:02 Dose: 40 mg Documented By: RAQUEL Divalproex Sodium (Divalproex Delay Release 500 Mg Tab) 500 mg PO BID [facility] [place] Stop: 12/16/23 20:59 Last Admin: 11/22/23 09:13 Dose: 500 mg Documented By: Admin: 11/21/23 20:02 Dose: 500 mg Documented By: Admin: 11/21/23 08:53 Dose: 500 mg Documented By: Admin: 11/20/23 21:41 Dose: 500 mg Documented By: GT Admin: 11/20/23 10:53 Dose: 500 mg Documented By: Admin: 11/19/23 20:51 Dose: Not Given Documented By: [facility] Admin: 11/19/23 09:58 Dose: 500 mg Documented By: Admin: 11/18/23 20:18 Dose: 500 mg Documented By: [facility] Admin: 11/18/23 08:43 Dose: 500 mg Documented By: VABossman Admin: 11/17/23 20:54 Dose: 500 mg Documented By: [facility] Admin: 11/17/23 09:34 Dose: 500 mg Documented By: VABossman Admin: 11/16/23 20:27 Dose: 500 mg Documented By: [facility] Enoxaparin Sodium (Enoxaparin Inj 40 Mg/0.4 Ml Syr) 40 mg SQ QAM [facility] [place] Stop: 12/22/23 08:59 Last Admin: 11/22/23 09:17 Dose: 40 mg Documented By: NICKI Famotidine (Famotidine 20 Mg Tab) 20 mg PO QAM [facility] [place] Stop: 12/22/23 08:59 Last Admin: 11/22/23 09:12 Dose: 20 mg Documented By: NICKI Finasteride (Finasteride 5 Mg Tab) 5 mg PO QAM [facility] Stop: 12/17/23 08:59 Last Admin: 11/22/23 09:12 Dose: 5 mg Documented By: Admin: 11/21/23 08:52 Dose: 5 mg Documented By: Admin: 11/20/23 10:53 Dose: 5 mg Documented By: MTBossman Admin: 11/19/23 09:59 Dose: 5 mg Documented By: VABossman Admin: 11/18/23 08:43 Dose: 5 mg Documented By: [facility] Admin: 11/17/23 10:11 Dose: 5 mg Documented By: VABossman Heparin Sodium (Porcine) (Heparin 100 Unit/Ml 5ml Flush) 5 ml FLUSH PRN PRN PRN Reason: Flush Stop: 12/14/23 01:08 Last Admin: 11/21/23 06:46 Dose: 5 ml Documented By: GTStephen Admin: 11/19/23 10:26 Dose: 5 ml Documented By: Admin: 11/18/23 06:27 Dose: 5 ml Documented By: GTStephen Admin: 11/15/23 08:59 Dose: 5 ml Documented By: Admin: 11/14/23 23:00 Dose: 5 ml Documented By: Admin: 11/14/23 17:54 Dose: 5 ml Documented By: Admin: 11/14/23 06:03 Dose: 5 ml Documented By: MYRA Lorazepam 1 mg/ Syringe 1 mls @ 2 mls/min IV Q1H PRN PRN Reason: seizure Stop: 12/15/23 10:51 Last Admin: 11/15/23 17:12 Dose: 2 mls/min Documented By: ROMI Lacosamide (Lacosamide 50 Mg Tablet) 100 mg PO BID [facility] Stop: 12/16/23 20:59 Last Admin: 11/22/23 09:19 Dose: 100 mg Documented By: B Admin: 11/21/23 20:02 Dose: 100 mg Documented By: Admin: 11/21/23 09:03 Dose: 100 mg Documented By: Admin: 11/20/23 21:39 Dose: 100 mg Documented By: GT Admin: 11/20/23 10:53 Dose: 100 mg Documented By: MTBossman Admin: 11/19/23 20:09 Dose: 100 mg Documented By: GT Admin: 11/19/23 10:02 Dose: 100 mg Documented By: Admin: 11/18/23 20:17 Dose: 100 mg Documented By: GT Admin: 11/18/23 08:42 Dose: 100 mg Documented By: Admin: 11/17/23 20:54 Dose: 100 mg Documented By: GT Admin: 11/17/23 09:34 Dose: 100 mg Documented By: Admin: 11/16/23 22:00 Dose: 100 mg Documented By: GT Magnesium Oxide (Magnesium Oxide 400 Mg Tab) 400 mg PO QAM [facility] Stop: 12/17/23 15:29 Last Admin: 11/22/23 09:11 Dose: 400 mg Documented By: Admin: 11/21/23 08:52 Dose: 400 mg Documented By: Admin: 11/20/23 10:54 Dose: 400 mg Documented By: Admin: 11/19/23 09:59 Dose: 400 mg Documented By: Admin: 11/18/23 08:43 Dose: 400 mg Documented By: Admin: 11/17/23 16:36 Dose: 400 mg Documented By: SADIE Metoprolol Succinate (Metoprolol Succ 50mg Ext Rel Tab) 50 mg PO QAM [facility] Stop: 12/20/23 08:59 Last Admin: 11/22/23 09:12 Dose: 50 mg Documented By: Admin: 11/21/23 08:53 Dose: 50 mg Documented By: Admin: 11/20/23 10:55 Dose: 50 mg Documented By: SADIE Nystatin (Nystatin Susp 500,000 U/5 Ml Udc) 5 ml PO QID DEMAR Stop: 11/29/23 16:59 Last Admin: 11/22/23 13:12 Dose: Not Given Documented By: Admin: 11/22/23 09:16 Dose: 5 ml Documented By: Admin: 11/21/23 20:02 Dose: 5 ml Documented By: Admin: 11/21/23 17:34 Dose: 5 ml Documented By: Admin: 11/21/23 12:37 Dose: Not Given Documented By: Admin: 11/21/23 08:52 Dose: 5 ml Documented By: Admin: 11/20/23 21:50 Dose: Not Given Documented By: Admin: 11/20/23 18:21 Dose: 5 ml Documented By: Admin: 11/20/23 13:23 Dose: 5 ml Documented By: Admin: 11/20/23 10:54 Dose: 5 ml Documented By: Admin: 11/19/23 20:12 Dose: 5 ml Documented By: Admin: 11/19/23 17:33 Dose: 5 ml Documented By: SADIE Tamsulosin HCl (Tamsulosin Hcl 0.4 Mg Cap) 0.4 mg PO QAM [facility] Stop: 12/17/23 08:59 Last Admin: 11/22/23 09:16 Dose: 0.4 mg Documented By: Admin: 11/21/23 08:52 Dose: 0.4 mg Documented By: Admin: 11/20/23 10:54 Dose: 0.4 mg Documented By: Admin: 11/19/23 10:00 Dose: 0.4 mg Documented By: Admin: 11/18/23 08:44 Dose: 0.4 mg Documented By: Admin: 11/17/23 10:11 Dose: 0.4 mg Documented By: SADIE Discontinued Medications Dexamethasone (Dexamethasone 1 Mg Tab) 2 mg PO QAM DEMAR Stop: 12/18/23 08:59 Last Admin: 11/21/23 08:52 Dose: 2 mg Documented By: Admin: 11/20/23 10:52 Dose: 2 mg Documented By: Admin: 11/19/23 09:59 Dose: 2 mg Documented By: Admin: 11/18/23 08:43 Dose: 2 mg Documented By: SADIE Dexamethasone (Dexamethasone 4 Mg Tab) 4 mg PO BID17 DEMAR Stop: 12/21/23 17:14 Last Admin: 11/22/23 09:13 Dose: 4 mg Documented By: Admin: 11/21/23 17:50 Dose: 4 mg Documented By: MARY Furosemide (Furosemide Inj 20 Mg/2 Ml Vial) 20 mg IV ONE ONE Stop: 11/17/23 15:17 Last Admin: 11/17/23 16:35 Dose: 20 mg Documented By: SADIE Furosemide (Furosemide Inj 20 Mg/2 Ml Vial) 20 mg IV ONE ONE Stop: 11/18/23 08:19 Last Admin: 11/18/23 08:46 Dose: 20 mg Documented By: SADIE Furosemide (Furosemide 20 Mg Tab) 20 mg PO NOW ONE Stop: 11/19/23 09:01 Last Admin: 11/19/23 10:01 Dose: 20 mg Documented By: SADIE Heparin Sodium (Porcine) (Heparin Sod 5,000 Unit/0.5 Ml Vial) 5,000 units SQ Q8 [facility] Stop: 12/15/23 21:59 Last Admin: 11/21/23 13:56 Dose: 5,000 units Documented By: Admin: 11/21/23 05:48 Dose: 5,000 units Documented By: Admin: 11/20/23 21:40 Dose: 5,000 units Documented By: [facility] Admin: 11/20/23 13:23 Dose: 5,000 units Documented By: Admin: 11/20/23 05:55 Dose: 5,000 units Documented By: [facility] Admin: 11/19/23 22:07 Dose: 5,000 units Documented By: [facility] Admin: 11/19/23 15:20 Dose: 5,000 units Documented By: Admin: 11/19/23 05:35 Dose: 5,000 units Documented By: [facility] Admin: 11/18/23 21:45 Dose: 5,000 units Documented By: [facility] Admin: 11/18/23 15:15 Dose: 5,000 units Documented By: Admin: 11/18/23 05:58 Dose: 5,000 units Documented By: [facility] Admin: 11/17/23 20:56 Dose: 5,000 units Documented By: [facility] Admin: 11/17/23 14:42 Dose: 5,000 units Documented By: Admin: 11/17/23 05:32 Dose: 5,000 units Documented By: [facility] Admin: 11/16/23 22:01 Dose: 5,000 units Documented By: [facility] Admin: 11/16/23 13:27 Dose: 5,000 units Documented By: Admin: 11/16/23 05:45 Dose: 5,000 units Documented By: Admin: 11/15/23 21:24 Dose: 5,000 units Documented By: JOSEPH Hydralazine HCl (Hydralazine Hcl 20 Mg/Ml Vial) 10 mg IV Q4H PRN PRN Reason: Hypertension Stop: 12/14/23 03:48 Last Admin: 11/20/23 03:48 Dose: 10 mg Documented By: [facility] Sodium Chloride (Nss) 1,000 mls @ 999 mls/hr IV .Q1H1M ONE Stop: 11/13/23 23:55 Last Infusion: 11/14/23 00:12 Dose: Infused Documented By: Admin: 11/13/23 23:08 Dose: 999 mls/hr Documented By: RKISTINA Daptomycin 450 mg/ Syringe 9 mls @ 4.5 mls/min IV NOW STA; Protocol Stop: 11/13/23 23:23 Last Admin: 11/13/23 23:49 Dose: 4.5 mls/min Documented By: KRISTINA Ceftriaxone Sodium (Rocephin) 2,000 mg in 50 mls @ 100 mls/hr IV NOW [facility] Stop: 11/14/23 00:07 Last Infusion: 11/14/23 01:01 Dose: Infused Documented By: Admin: 11/13/23 23:52 Dose: 100 mls/hr Documented By: KRISTINA Potassium Chloride/Sodium Chloride (Normal Saline W/20 Meq Kcl) 20 meq in 1,000 mls @ 80 mls/hr IV .[id number] DEMAR; Protocol Stop: 11/14/23 13:29 Last Infusion: 11/14/23 17:54 Dose: Infused Documented By: Infusion: 11/14/23 13:13 Dose: 80 mls/hr Documented By: Admin: 11/14/23 01:49 Dose: 80 mls/hr Documented By: MYRA Daptomycin 425 mg/ Syringe 8.5 mls @ 4.25 mls/min IV Q24H [facility] [place]; Protocol Stop: 11/24/23 21:59 Last Admin: 11/16/23 22:02 Dose: 4.25 mls/min Documented By: Admin: 11/15/23 21:23 Dose: 4.25 mls/min Documented By: Admin: 11/14/23 23:00 Dose: 4.25 mls/min Documented By: MISAEL Ceftriaxone Sodium (Rocephin) 2,000 mg in 50 mls @ 100 mls/hr IV Q24H DEMAR Stop: 11/24/23 08:59 Last Infusion: 11/16/23 22:12 Dose: Infused Documented By: Admin: 11/16/23 20:25 Dose: 100 mls/hr Documented By: Infusion: 11/15/23 21:17 Dose: Infused Documented By: Admin: 11/15/23 20:18 Dose: 100 mls/hr Documented By: Infusion: 11/14/23 21:30 Dose: Infused Documented By: Admin: 11/14/23 20:55 Dose: 100 mls/hr Documented By: MISAEL Magnesium Sulfate/Dextrose (Magnesium Sulfate / D5w) 1 gm in 100 mls @ 50 mls/hr IV Q2H DEMAR Stop: 11/14/23 13:29 Last Infusion: 11/14/23 14:28 Dose: Infused Documented By: Admin: 11/14/23 11:54 Dose: 50 mls/hr Documented By: Infusion: 11/14/23 11:44 Dose: Infused Documented By: Admin: 11/14/23 09:44 Dose: 50 mls/hr Documented By: LINDA Dexamethasone 4 mg/ Syringe 1 mls @ 1 mls/min IV Q24H [facility]AR Stop: 12/14/23 09:59 Last Admin: 11/15/23 08:59 Dose: 1 mls/min Documented By: Admin: 11/14/23 11:54 Dose: 1 mls/min Documented By: LINDA Lacosamide 100 mg/ Sodium (Chloride) 60 mls @ 120 mls/hr IV Q12H [facility] Stop: 12/15/23 10:59 Last Infusion: 11/16/23 13:15 Dose: Infused Documented By: Admin: 11/16/23 11:40 Dose: 120 mls/hr Documented By: Infusion: 11/15/23 23:33 Dose: Infused Documented By: Admin: 11/15/23 22:49 Dose: 120 mls/hr Documented By: Infusion: 11/15/23 12:29 Dose: Infused Documented By: Admin: 11/15/23 11:56 Dose: 120 mls/hr Documented By: AMB Lactated Ringer's (Lr) 1,000 mls @ 100 mls/hr IV .Q10H [facility] Stop: 12/15/23 10:59 Last Infusion: 11/16/23 17:21 Dose: Infused Documented By: Infusion: 11/16/23 17:20 Dose: 0 mls/hr Documented By: Infusion: 11/16/23 17:19 Dose: 0 mls/hr Documented By: Infusion: 11/16/23 14:31 Dose: 0 mls/hr Documented By: Infusion: 11/16/23 14:31 Dose: 0 mls/hr Documented By: Infusion: 11/16/23 14:30 Dose: 0 mls/hr Documented By: Admin: 11/16/23 11:52 Dose: 100 mls/hr Documented By: Infusion: 11/16/23 11:52 Dose: Infused Documented By: Admin: 11/16/23 02:21 Dose: 100 mls/hr Documented By: Infusion: 11/16/23 02:21 Dose: Infused Documented By: Admin: 11/15/23 20:22 Dose: 100 mls/hr Documented By: Infusion: 11/15/23 20:22 Dose: Infused Documented By: Admin: 11/15/23 11:56 Dose: 100 mls/hr Documented By: AMB Valproic Acid 1,000 mg/ (Dextrose) 60 mls @ 55 mls/hr IV ONCE ONE Stop: 11/15/23 18:53 Last Infusion: 11/15/23 19:59 Dose: Infused Documented By: Admin: 11/15/23 18:18 Dose: 55 mls/hr Documented By: AMB Valproic Acid 500 mg/ Dextrose 55 mls @ 55 mls/hr IV Q12H [facility] Stop: 12/16/23 08:59 Last Infusion: 11/16/23 12:15 Dose: Infused Documented By: Admin: 11/16/23 10:31 Dose: 55 mls/hr Documented By: SADIE Magnesium Sulfate/Dextrose (Magnesium Sulfate / D5w) 1 gm in 100 mls @ 50 mls/hr IV Q2H [facility] Stop: 11/16/23 12:14 Last Infusion: 11/16/23 13:16 Dose: Infused Documented By: Admin: 11/16/23 11:07 Dose: 50 mls/hr Documented By: Infusion: 11/16/23 10:49 Dose: Infused Documented By: Admin: 11/16/23 08:49 Dose: 50 mls/hr Documented By: SADIE Dexamethasone 2 mg/ Syringe 0.5 mls @ 1 mls/min IV Q24H [facility] Stop: 12/16/23 08:59 Last Admin: 11/17/23 09:34 Dose: 1 mls/min Documented By: Admin: 11/16/23 09:59 Dose: 1 mls/min Documented By: SADIE Ampicillin Sodium 2,000 mg/ (Sodium Chloride) 100 mls @ 200 mls/hr IV Q6H [facility] Stop: 11/27/23 16:59 Last Infusion: 11/19/23 12:10 Dose: Infused Documented By: Admin: 11/19/23 11:27 Dose: 200 mls/hr Documented By: Infusion: 11/19/23 06:23 Dose: Infused Documented By: [facility] Admin: 11/19/23 05:35 Dose: 200 mls/hr Documented By: [facility] Infusion: 11/18/23 22:15 Dose: Infused Documented By: [facility] Admin: 11/18/23 21:45 Dose: 200 mls/hr Documented By: [facility] Infusion: 11/18/23 18:03 Dose: Infused Documented By: Admin: 11/18/23 17:26 Dose: 200 mls/hr Documented By: Infusion: 11/18/23 11:47 Dose: Infused Documented By: Admin: 11/18/23 11:03 Dose: 200 mls/hr Documented By: Infusion: 11/18/23 07:19 Dose: Infused Documented By: Admin: 11/18/23 05:58 Dose: 200 mls/hr Documented By: [facility] Infusion: 11/18/23 00:15 Dose: Infused Documented By: [facility] Admin: 11/17/23 23:42 Dose: 200 mls/hr Documented By: [facility] Infusion: 11/17/23 18:42 Dose: Infused Documented By: Admin: 11/17/23 17:50 Dose: 200 mls/hr Documented By: SADIE Ibuprofen (Ibuprofen 600 Mg Tab) 600 mg PO NOW ONE Stop: 11/14/23 23:24 Last Admin: 11/14/23 23:35 Dose: 600 mg Documented By: MISAEL Lidocaine HCl (Lidocaine 2% Jelly 5 Ml Tube) Confirm Administered Dose 5 ml EXT .STK-MED ONE Stop: 11/15/23 11:22 Last Admin: 11/15/23 11:56 Dose: 5 ml Documented By: ROMI Lorazepam (Lorazepam 2 Mg/1 Ml Vial) Confirm Administered Dose 2 mg .ROUTE .STK- MED ONE Stop: 11/15/23 17:06 Last Admin: 11/15/23 17:28 Dose: Not Given Documented By: AMB Metoprolol Succinate (Metoprolol Succ 25mg Ext Rel Tab) [facility] [place] Stop: 12/19/23 08:59 Last Admin: 11/19/23 09:59 Dose: 25 mg Documented By: SADIE Metoprolol Succinate (Metoprolol Succ 25mg Ext Rel Tab) 25 mg PO NOW STA Stop: 11/18/23 16:53 Last Admin: 11/18/23 17:31 Dose: 25 mg Documented By: SADIE Phenazopyridine HCl (Phenazopyridine Hcl 200 Mg Tab) 200 mg PO NOW STA Stop: 11/14/23 11:05 Last Admin: 11/14/23 11:54 Dose: 200 mg Documented By: LINDA Phenazopyridine HCl (Phenazopyridine Hcl 200 Mg Tab) 200 mg PO TID PRN PRN Reason: bladder pain/dysuria Stop: 12/14/23 16:59 Last Admin: 11/15/23 04:45 Dose: 200 mg Documented By: Admin: 11/14/23 20:52 Dose: 200 mg Documented By: MISAEL Phenazopyridine HCl (Phenazopyridine Hcl 200 Mg Tab) 200 mg PO TID [facility] Stop: 12/15/23 08:59 Last Admin: 11/18/23 15:15 Dose: 200 mg Documented By: Admin: 11/18/23 08:44 Dose: 200 mg Documented By: Admin: 11/17/23 20:55 Dose: 200 mg Documented By: Admin: 11/17/23 14:43 Dose: 200 mg Documented By: Admin: 11/17/23 09:34 Dose: 200 mg Documented By: Admin: 11/16/23 20:28 Dose: 200 mg Documented By: GT Admin: 11/16/23 13:27 Dose: 200 mg Documented By: Admin: 11/16/23 08:55 Dose: 200 mg Documented By: Admin: 11/15/23 21:29 Dose: Not Given Documented By: Admin: 11/15/23 13:48 Dose: 200 mg Documented By: Admin: 11/15/23 08:59 Dose: 200 mg Documented By: LINDA Phenazopyridine HCl (Phenazopyridine Hcl 200 Mg Tab) 200 mg PO TID PRN PRN Reason: bladder pain/dysuria Stop: 12/15/23 08:59 Last Admin: 11/19/23 20:10 Dose: 200 mg Documented By: JANA Potassium Chloride (Potassium Chloride Crtab 20 Meq Tabcr) 20 meq PO TID DEMAR Stop: 11/14/23 21:01 Last Admin: 11/14/23 20:51 Dose: 20 meq Documented By: Admin: 11/14/23 13:14 Dose: 20 meq Documented By: Admin: 11/14/23 09:38 Dose: 20 meq Documented By: LINDA Potassium Chloride (Potassium Chloride Crtab 20 Meq Tabcr) 40 meq PO NOW STA Stop: 11/17/23 13:00 Last Admin: 11/17/23 14:42 Dose: 40 meq Documented By: SADIE Potassium Chloride (Potassium Chloride Crtab 20 Meq Tabcr) 40 meq PO NOW STA Stop: 11/17/23 15:17 Last Admin: 11/17/23 16:36 Dose: 40 meq Documented By: SADIE Potassium Chloride (Potassium Chloride Crtab 20 Meq Tabcr) 20 meq PO QAM [facility] Stop: 12/18/23 08:59 Last Admin: 11/19/23 09:59 Dose: 20 meq Documented By: Admin: 11/18/23 08:42 Dose: 20 meq Documented By: SADIE Potassium Phosphate (Pot Phosphate Monobasic W/ Sod Tab) 1 tab PO QID DEMAR Stop: 12/15/23 08:59 Last Admin: 11/19/23 12:56 Dose: 1 tab Documented By: Admin: 11/19/23 09:59 Dose: 1 tab Documented By: Admin: 11/18/23 20:17 Dose: 1 tab Documented By: [facility] Admin: 11/18/23 17:34 Dose: 1 tab Documented By: Admin: 11/18/23 13:23 Dose: 1 tab Documented By: Admin: 11/18/23 08:43 Dose: 1 tab Documented By: VAoBssman Admin: 11/17/23 20:55 Dose: 1 tab Documented By: [facility] Admin: 11/17/23 17:36 Dose: 1 tab Documented By: Admin: 11/17/23 12:36 Dose: 1 tab Documented By: Admin: 11/17/23 09:35 Dose: 1 tab Documented By: VABossman Admin: 11/16/23 20:29 Dose: 1 tab Documented By: [facility] Admin: 11/16/23 18:11 Dose: 1 tab Documented By: Admin: 11/16/23 13:27 Dose: 1 tab Documented By: Admin: 11/16/23 08:54 Dose: 1 tab Documented By: Admin: 11/15/23 21:29 Dose: Not Given Documented By: Admin: 11/15/23 20:12 Dose: Not Given Documented By: Admin: 11/15/23 13:48 Dose: 1 tab Documented By: Admin: 11/15/23 08:59 Dose: 1 tab Documented By: LINDA Vibegron (Vibegron 75 Mg Tab) 75 mg PO DAILY [facility] Stop: 12/14/23 09:14 Last Admin: 11/19/23 10:01 Dose: 75 mg Documented By: Admin: 11/18/23 08:42 Dose: 75 mg Documented By: Admin: 11/17/23 09:34 Dose: 75 mg Documented By: Admin: 11/16/23 09:59 Dose: 75 mg Documented By: Admin: 11/15/23 08:58 Dose: 75 mg Documented By: Admin: 11/14/23 09:38 Dose: 75 mg Documented By: LINDA Description This is a 21 electrode EEG with a single channel dedicated to limited EKG. The electrodes were placed in accordance with the International 10-20 system. Interpretation The predominant background activity consists of an irregular 5-6 hz activity, of up to 100 mV in amplitude, seen diffusely in all head regions. The amplitude was variable from 30 to 40 V at times throughout the recording and from 75 to 100 V at times throughout the recording. Photic stimulation was performed and elicited no change in the background activity and no abnormal responses were seen. Hyperventilation was not performed. A mild to moderate amount of muscle and movement artifact activity contaminated the recording, yet did not hinder interpretation to any significant degree. Throughout the recording I could not detect any specific focal abnormalities or potentially epileptogenic activity. The activity stayed about the same throughout the entire recording although there were times when the amplitude was diminished and the patient clinically seems to be more asleep In summary, this EEG was abnormal doing the wakeful state. It showed mild to moderate generalized slowing of a nonspecific nature. No focal abnormalities were noted and no potentially epileptogenic discharges were seen Clinical Correlation The abscence of potentially epileptogenic activity does not exclude a seizure disorder, since interictally, EEGs can be normal. The generalized irregular slowing is consistent with encephalopathy. [facility] EEG Procedure Codes Indication for Procedure (1) Seizure: (2) Acute metabolic encephalopathy: Neurology Neurology: 38810 EEG include record awake & drowsy
--- NOTE | 2023-11-22 17:22 | Hospitalist Progress Note ---
Date of Service November 22, 2023 Assessment & Plan (1) Acute metabolic encephalopathy: Plan: 78-year-old man with history of GBM and 2 previous surgeries admitted with Enterococcus UTI, subsequently had 2 breakthrough seizures on 11/14 related to having not received his lacosamide since admission as well as stress of acute illness. he had decreased level of consciousness consistent with a prolonged postictal state and/or hypoactive delirium related to UTI. He did have a brain MRI several days ago which did not show any appreciable change in the glioblastoma from previous imaging. as of 11/21 mentation and alertness significantly improved. spot EEG 11/21 with generalized slowing as expected but no epileptiform patterns continue dexamethasone at 2 mg daily - his reports he cannot tolerate higher doses - caused behavioral problems continue AEDs. lacosamide level is pending, ammonia was normal, VPA level from AM 11/21 pending BMP 11/20 was unremarkable does have baseline confusion/cognitive impairment/personality change per his (2) Seizure: Plan: breakthrough seizure 11/14 AM due to not receiving lacosamide since admission (missed 2 doses), stress of illness (UTI), etc. had a 2nd seizure late afternoon on 11/14. CT head without acute findings and stable right temporal GBM and volume loss; no increased edema on that CT MRI brain UNCHANGED from prior MRI (R frontal and R temporal masses unchanged from previous MRI, edema unchanged; no acute or subacute findings) cont vimpat 100mg BID + depakote 500mg BID [facility] [place] [facility] continuing both meds upon discharge -see above (3) Acute UTI (urinary tract infection): Plan: urine culture with enterococcus, sens to ampicillin and gardnerella treated with ampicillin --> amoxicillin day 47 (will complete 14d of IV/po antibiotics). 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 lyme neg in August [address] head 11/13 - stable right-sided temporal GBM MRI brain this admission STABLE/UNCHANGED from prior brain MRI (6) Glioblastoma: Plan: initial dx 2021 s/p surgery, chemo, xrt ultimately had recurrence in Dec 2022 requiring additional surgery follows with [facility] see above seizure d/o is due to his GBM cont dexamethasone sent message to Dr Shore from [facility] but he may be out of town/not available thus, will simply have patient f/u with Dr Shore post-discharge (7) Macrocytosis: Plan: B12/folate both wnl TSH wnl probably caused by valproic acid (reported in 18%) (8) CAD (coronary artery disease): Plan: troponin minimally elevated in the midst of his seizures this was likely myocardial demand ischemia rather than ACS no ischemic symptoms at any time this admission (9) Dysphagia: Plan: appreciate speech therapy consult and recs video swallow completed minced/moist diet advised for now Plan Hypokalemia and hypomagnesemia replaced and resolved Chronic issues - * HTN - BPs satisfactory with amlodipine 5mg daily DVT proph - enoxaparin PT, OT rehab post-d/c referrals pending, discussed with his and memory care program resident 11/20 and 11/21 - transfer to [place] may be an option Admission and Anticipated Discharge Date Admission Date: November 13, 2023 Subjective Phil is definitely more awake today, eating, talking to his No further seizures Physical Exam 2 Physical Exam: PHYSICAL EXAMINATION Last 24h vital signs reviewed, see documentation in flowsheet General: awake and alert - seen HEENT: moist mucous membranes Lungs: Normal respiratory effort. Clear to auscultation bilaterally. No RRW Heart: Regular rate and rhythm, no murmurs. No JVD Abdomen: Soft, nontender, nondistended. Bowel sounds present. Extremities: Warm, dry, well-perfused. No extremity edema. Neuro: Alert and speaking in phrases today, right sided facial palsy related to Shipman's palsy, left upper extremity greater than left lower extremity weakness which is baseline, moving RUE and RLE normally Psych: calm currently Results & Data Results & Data Vital Signs (Past 12 Hours) Vital Signs Temp Pulse Resp BP Pulse Ox O2 Del Method 11/22/23 16:06 36.4 C L 81 18 162/95 H 96 Room Air 11/22/23 07:13 36.5 C 72 18 152/82 H 100 Room Air Laboratory Results 11/21/23 06:40 11/21/23 06:40 PG Care Time/CCT Total # of Minutes Spent Total Time Spent with Patient: Total time spent is greater than 50% in coordination of care (as documented) at patient's floor/unit and/or counseling patient: Coding Level of Care Code 58603 SUB INP/OBS CARE 2/35MIN Diagnoses Acute metabolic encephalopathy G93.41 Seizure R56.9 Acute UTI (urinary tract infection) N39.0 Acute urinary retention R33.8 Shipman's palsy G51.0 Glioblastoma C71.9 Macrocytosis D75.89 Coronary artery disease involving [place] heart without angina pectoris, unspecified vessel or lesion type I25.10 Coronary Disease-Associated Artery/Lesion type: unspecified vessel or lesion type [place] vs. transplanted heart: [place] heart Associated angina: without angina Dysphagia R13.10 (8) CAD (coronary artery disease) Coronary Disease-Associated Artery/Lesion type: unspecified vessel or lesion type [place] vs. transplanted heart: [place] heart Associated angina: without angina Qualified Code(s): I25.10 - Atherosclerotic heart disease of [place] coronary artery without angina pectoris
[2023-11-23] MEDS: dexAMETHasone 1 MG TAB PO SCH (07:41)
[2023-11-23 08:44] VITALS: RESP 20
--- NOTE | 2023-11-23 12:37 | Discharge Summary ---
Discharge Summary Date of Service November 23, 2023 Principal Dx & Hospital Course #1 = Principal Diagnosis (1) Acute metabolic encephalopathy: 78-year-old man with history of GBM and 2 previous surgeries admitted with Enterococcus UTI, subsequently had 2 breakthrough seizures on 11/14 related to having not received his lacosamide since admission as well as stress of acute illness. he had decreased level of consciousness consistent with a prolonged postictal state and/or hypoactive delirium related to UTI. He did have a brain MRI several days ago which did not show any appreciable change in the glioblastoma from previous imaging. as of 11/21 mentation and alertness significantly improved. spot EEG 11/21 with generalized slowing as expected but no epileptiform patterns. continues to have some waxing and waning with periods of being more sleepy at other times seems at his baseline mental status, consistent with an improving delirium. continue dexamethasone at 2 mg daily - his reports he cannot tolerate higher doses - caused behavioral problems continue AEDs. BMP 11/20 was unremarkable, CBC notable for white blood count of 11, slightly improved from previous does have baseline confusion/cognitive impairment/personality change per his (2) Seizure: breakthrough seizure 11/14 AM due to not receiving lacosamide since admission (missed 2 doses), stress of illness (UTI), etc. had a 2nd seizure late afternoon on 11/14. was loaded on IV valproic acid CT head without acute findings and stable right temporal GBM and volume loss; no increased edema on that CT MRI brain UNCHANGED from prior MRI (R frontal and R temporal masses unchanged from previous MRI, edema unchanged; no acute or subacute findings) cont vimpat 100mg BID + depakote 500mg BID lacosamide level was 7 on 11/14, ammonia was normal, VPA level from AM 11/21 therapeutic on current dosing at 77 [facility] [place] [facility] both meds upon discharge -see above (3) Acute UTI (urinary tract infection): urine culture with enterococcus, sens to ampicillin and gardnerella treated with ampicillin --> amoxicillin day 5/7 (which will complete 14d of IV/po antibiotics). 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 see above seizure d/o is due to his GBM cont dexamethasone sent message to Dr Shore from [facility] but he may be out of town/not available Follow up with Dr Shore post-discharge (7) Macrocytosis: B12/folate both wnl TSH wnl probably caused by valproic acid (reported in 18%) (8) CAD (coronary artery disease): troponin minimally elevated in the midst of his seizures this was likely myocardial demand ischemia rather than ACS no ischemic symptoms at any time this admission (9) Dysphagia: appreciate speech therapy consult and recs video swallow completed minced/moist diet advised for now Plan Hypokalemia and hypomagnesemia replaced and resolved Chronic issues - * HTN - continue amlodipine 5mg daily, metoprolol. Plan on resuming lisinopril DVT proph - enoxaparin PT, OT rehab post-d/c transferred to [facility]. I spoke with their provider today by phone. I updated his and sister at bedside today Notes For Next Care Provider Resuming lisinopril. Voiding trial. Two more days amoxicillin for UTI. Medication Changes From Visit Amoxicillin added Depakote added. Admission HPI Per Admitting Provider The patient is a 77-year-old male with a past medical history including glioblastoma status post craniotomy, ambulatory dysfunction, dizziness, history of acute renal failure and hyponatremia, presence of Port-A-Cath, splenic infarction, left carotid stenosis, hypercholesterolemia, anemia and hyperlipidemia. The patient had been admitted most recently to [facility] from 10/12-10/15/2023, and then was discharged to [facility] rehab. He had left [facility] about 1-1/2 weeks ago, and his reports he has had significantly increased number of falls, and today developed severe suprapubic pain and worsening weakness. In the emergency department he had a Aguero catheter placed, and had significant improvement in suprapubic pressure at that time. He did have significant gross hematuria after Aguero was placed. His reports that he is somewhat lethargic at this point, but tends to become agitated when he starts feeling better. Discharge Exam PHYSICAL EXAMINATION Last 24h vital signs reviewed, see documentation in flowsheet General: sleeping, but I woke him up HEENT: moist mucous membranes Lungs: Normal respiratory effort. Clear to auscultation bilaterally. No RRW Heart: Regular rate and rhythm, no murmurs. No JVD Abdomen: Soft, nontender, nondistended. Bowel sounds present. Extremities: Warm, dry, well-perfused. No extremity edema. Neuro: was sleeping and took awhile to wake him up but he became reasonably alert and conversing with me in short phrases, speech garbled at times, right sided facial droop related to Shipman's palsy, left upper extremity greater than left lower extremity weakness which is baseline, moving RUE and RLE normally Psych: calm currently, has not been agitated Discharge Plan Discharge Items Patient Disposition: Transfer DC Hospital Reason For Visit: URINARY RETENTION REQUIRING AGUERO PLACE, UTI, FALL Discharge Diagnosis: UTI, urinary retention, seizures Activity: Per Instructions section Non-emergency contact: Primary Care Provider and Oncologist Call non-emergency contact if: you have any medication questions, your symptoms worsen and you have a fever Follow-up/Referrals: Leonardo Gates CRNP [Primary Care Provider] - Johnny Shore MD [Physician] - Diet: Regular Diet Texture: Mechanical soft (ground) Addtl Attending Provider Instructions: PT and OT evaluate and treat Wound care instructions: To right and left forearm wound- clean with saline. Cover with Carradres and secure with Optifoam Gentle (silicone border). Change every other day and as needed To left wristclean with saline. Cover with Optifoam Gentle. Change every other day and as needed Strongly recommend not using band-aids nor Telfa products on skin Suggest silicone products suggest loosening skin from dressing, not pulling dressing from skin Suggest adhesive remover spray such as Esenta adhesive remover spray from [facility] Pending Studies at Discharge: No Stand-Alone Forms: My [facility] Skilled Items Patient informed of condition?: Yes DNR: No Discharge Level of Care: Other Communicable Disease: No Discharge Prognosis: Improving Lines: Peripheral IV Urinary Catheter: Yes Medications and DC Order Prescriptions: New acetaminophen 325 mg Tablet 650 mg PO Q4H PRNQty: 0 0RF ondansetron HCl (PF) 4 mg/2 mL Solution 4 mg IV Q6H PRNQty: 0 0RF divalproex 500 mg Tablet,Delayed Release (Dr/Ec) 500 mg PO BID Qty: 0 0RF nystatin 100,000 unit/mL Suspension 5 ml PO QID Qty: 0 0RF enoxaparin [Lovenox] 40 mg/0.4 mL Syringe 40 mg subcut QAM Qty: 0 0RF magnesium oxide 400 mg (241.3 mg magnesium) Tablet 400 mg PO QAM Qty: 0 0RF amoxicillin 875 mg Tablet 875 mg PO BID Qty: 0 0RF Continued atorvastatin 40 mg tablet 40 mg PO HS Qty: 90 3RF dutasteride [Avodart] 0.5 mg capsule 0.5 mg PO QAM Qty: 90 1RF metoprolol succinate 50 mg tablet extended release 24 hr 50 mg PO QAM Qty: 90 1RF lacosamide [Vimpat] 100 mg tablet 100 mg PO BID Qty: 180 3RF Beano 450 unit tablet,disintegrating 450 unit PO DAILY aspirin 81 mg Tablet,Delayed Release (Dr/Ec) 81 mg PO QAM Qty: 30 0RF famotidine 20 mg Tablet 20 mg PO QAM cholecalciferol (vitamin D3) [Vitamin D3] 125 mcg (5,000 unit) Tablet 125 mcg PO QAM dexamethasone 2 mg tablet 2 mg PO QAM amlodipine 5 mg Tablet 5 mg PO DAILY tamsulosin 0.4 mg capsule 0.4 mg PO HS lisinopril 10 mg Tablet 10 mg PO DAILY Lacri-Lube S.O.P. Ointment 1 applic OPR HS Discharge Orders: Discharge Order (Routine); Ordered 11/23/23 Ordered By: Carlene Rede Admission Data Admit Date/Time: 11/13/23 23:40 Attending Provider: Carlene Reed Admit Provider: Enio Azar Primary Care Provider: Leonardo Gates Other Providers: [facility]; [place]; Enio Azar Other Interventions: Discharge Summary Assessment (RN) Last Done: 11/23/23 12:15 Hospital Stay Data Consultations 11/13/23 23:33 ED Decision to Admit Stat 11/14/23 03:42 Consult Urology Routine Diagnostic Imagining Performed 11/14/23 16:[address] [CT head/brain wo con] Routine 11/16/23 08:09 MR brain wo con Routine 11/20/23 10:00 FL video swallow Routine Pending Results Patient Have Any Pending Studies at Discharge: No Discharge Instructions Given to Patient (Per Discharging Provider) PT and OT evaluate and treat Wound care instructions: To right and left forearm wound- clean with saline. Cover with Carradres and secure with Optifoam Gentle (silicone border). Change every other day and as needed To left wristclean with saline. Cover with Optifoam Gentle. Change every other day and as needed Strongly recommend not using band-aids nor Telfa products on skin Suggest silicone products suggest loosening skin from dressing, not pulling dressing from skin Suggest adhesive remover spray such as Esenta adhesive remover spray from [employer] Total Time Total Time Spent Total Time Spent (In Minutes): I personally spent: 55 minutes today on clinical care activities including: reviewing chart notes and vital signs reviewing labs discussion with home care rn examining and counseling the patient counseling the patient's family speaking with [facility] provider for handoff writing orders, discharge instructions documentation Coding Level of Care Code 94880 INP/OBS DISCH >30 MIN Diagnoses Acute metabolic encephalopathy G93.41 Seizure R56.9 Acute UTI (urinary tract infection) N39.0 Acute urinary retention R33.8 Shipman's palsy G51.0 Glioblastoma C71.9 Macrocytosis D75.89 Coronary artery disease involving [place] heart without angina pectoris, unspecified vessel or lesion type I25.10 Coronary Disease-Associated Artery/Lesion type: unspecified vessel or lesion type [place] vs. transplanted heart: [place] heart Associated angina: without angina Dysphagia R13.10
[2023-11-23 13:33] VITALS: BP 146/86; PULSE 77; TEMP 97.7; O2SAT 96
== END 2023-11-23 14:07 | DRG 689 ==
LOC: ED 21:21 → 3E 23:40 → SUATTDRO 23:40 → 3E 11-14 00:19 → 1E 11-15 11:14 → 2S 11-15 18:46 → 3W 11-21 18:43